=== PATIENT | female | born 2005 | race African-American/Black ===

== ENCOUNTER 2024-03-23 09:34 | Emergency (ER) | payer OTHER, SELFPAY ==
--- NOTE | ~2024-03-23 | CT_ITS ---
EXAMINATION: CTA chest abdomen pelvis DATE: 03/23/2024 10:44 INDICATION: Chest and abdominal pain with exertion TECHNIQUE: Computed tomographic angiography (CTA) of the chest, abdomen, and pelvis was performed wit hout and with 100 mL Omnipaque-350 intravenous contrast. Volume-rendered 3D-reconstructions of the ao rta and large arteries were constructed by the technologist on a separate workstation. Automated expo sure control and iterative reconstruction technique were employed. The dose-length product was 282.17 mGy-cm. COMPARISON: None FINDINGS: Chest: Lungs are clear with no suspicious pulmonary nodules, pneumonia, pulmonary edema, pleural effusion or pneumothorax. No pulmonary embolism. Heart size is normal. No pericardial effusion. Thoracic aorta i s normal in caliber with no dissection. Normal thymus in the anterior mediastinum. No pathologically enlarged thoracic lymphadenopathy. Bones are unremarkable. Abdomen and pelvis: Liver, gallbladder, spleen, pancreas, bilateral adrenal glands and kidneys are normal. Bowels includi ng the appendix are normal. Anteverted uterus and decompressed bladder are unremarkable. No free intr aperitoneal gas or fluid. No pathologically enlarged abdominal or pelvic lymphadenopathy. Abdominal a jose miguel and the major vessels of the aorta are normal with no aneurysm or dissection. 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 Bones are unremarkable. IMPRESSION: 1. No acute thoracic, abdominal or pelvic process. Reviewed, dictated and finalized at location A.
[2024-03-23 09:41] VITALS: BP 108/73; PULSE 70; RESP 16; O2SAT 100
[2024-03-23 09:42] VITALS: BP 108/73; PULSE 68; RESP 16; TEMP 36.6; O2SAT 99
[2024-03-23 09:45] VITALS: BP 116/71; PULSE 72; RESP 16; TEMP 36.6; O2SAT 100
[2024-03-23 10:13] LABS: BEDSIDEPREGUCG Negative (Negative)
[2024-03-23 10:15] LABS: Basophils Percent Auto 0.9 % (0.2-1.2); Eosinophils Absolute Auto 0.1 K/mm3 (0-0.3); Hematocrit 39.8 % (37.0-47.0); Hemoglobin 13.1 g/dL (12.0-15.0); Immature Granulocyte Absolute 0.01 K/mm3 (0.00-0.031); Immature Granulocyte Percent A 0.3 % (0-0.5); Lymphocytes Absolute Auto 1.71 K/mm3 (0.9-3.2); Lymphocytes Percent Auto 51.2 % (18.3-44.2); Mean Corpuscular HGB Conc 32.9 g/dl (32-36); Mean Corpuscular Hemoglobin 28.7 pg (26-34); Mean Corpuscular Volume 87.3 fl (80-100); Mean Platelet Volume 11.1 fl (7.4-10.4); Monocytes Absolute Auto 0.2 K/mm3 (0.1-0.6); Monocytes Percent Auto 5.4 % (2.6-8.5); Neutrophils Absolute Auto 1.3 K/mm3 (1.3-6.7); Neutrophils Percent Auto 39.2 % (45.5-73.1); Platelet Count Result 170 k/mm3 (150-375); Red Blood Count 4.56 M/mm3 (4.2-5.4); White Blood Count 3.3 K/mm3 (4.5-10.0)
[2024-03-23 10:27] LABS: Alanine Aminotransferase 13 U/L (6-35); Albumin Level 4.6 g/dL (3.7-5.6); Alkaline Phosphatase 50 U/L (45-116); Anion Gap 10 mmol/L (4-12); Aspartate Amino Transferase 26 U/L (14-36); Blood Urea Nitrogen 13 mg/dL (8-21); Calcium 9.3 mg/dL (8.9-10.7); Carbon Dioxide 25 mmol/L (22-30); Chloride 104 mmol/L (98-107); Estimated CRCL calculation 82 ml/min; Estimated Glomerular Filt Rate > 60; Glucose 92 mg/dL (65-110); Lipase 87 U/L (23-300); Potassium 3.8 mmol/L (3.4-5.0); Sodium 139 mmol/L (134-143)
[2024-03-23 10:43] LABS: Add Urine Microscopic? YES; Appearance Urine Clear (Clear); Bacteria Urine None Seen /hpf; Bilirubin Urine Negative (Negative); Blood Urine 2+ (Negative); Color Urine Yellow (Yellow); Glucose Urine UA Negative (Negative); Ketones Urine Negative (Negative); Leukocyte Esterase Ur 1+ LEU/UL (Negative); Need Manual Microscopic Reviewed; Nitrate Urine Negative (Negative); Non Pathogenic Casts 0-2; Protein Urine Negative (Negative); Specific Grav Ur 1.029 (1.001-1.035); Squamous Epithelial Cell Urine Occasional /hpf (Few)
[2024-03-23 10:49] VITALS: BP 113/78; PULSE 76; RESP 16; TEMP 36.6; O2SAT 100
[2024-03-23 11:00] VITALS: BP 107/72
[2024-03-23] MEDS: BELLADONNA ALK/PHENOB ELIX 10 ML, MAG HYDROX/ALUMINUM HYD/SIMETH 30 ML, LIDOCAINE HCL 2... PO (11:59)
--- NOTE | 2024-03-23 12:19 | ED.ABDPAIN ---
HPI - Abdominal Pain General Chief Complaint: Abdominal Pain Stated Complaint: abd pain Time Seen by Provider: 03/23/24 09:48 Source: patient Mode of arrival: ambulatory Limitations: no limitations History of Present Illness HPI narrative: This is a 18-year-old female, with no significant past medical history, presents to the emergency department complaining of a burning/sharp pain extending from the base of the neck to the lower abdomen for the past 3 weeks. She states the pain worsens with physical exertion and improves with lying flat. She denies associated shortness of breath, lightheadedness or loss of consciousness. She has no other complaints at this time. Related Data Allergies Allergy/AdvReac Type Severity Reaction Status Date / Time No Known Allergies Allergy Verified 03/23/24 09:44 Review of Systems Review of Systems: All systems reviewed & are unremarkable except as noted in HPI and below PMFSH Past Medical History Medical History (Updated 03/23/24 @ 19:25 by Mega Swenson MD) No significant past medical history Surgical History Surgical History (Updated 03/23/24 @ 19:25 by Mega Swenson MD) No significant past surgical history Social History Social History (Updated 03/23/24 @ 19:25 by Mega Swenson MD) Smoking status: Never smoker Alcohol intake: never Substance use: never Exam Narrative: GENERAL: Well-developed, well-nourished, and in no acute distress. HEAD: Normocephalic, atraumatic. EYES: PERRLA and EOMI. CHEST: Clear to auscultation. No respiratory distress. No wheezes rales or rhonchi HEART: Regular rate and rhythm. No murmur heard. Normal peripheral pulses. ABDOMEN: Soft, nontender, nondistended, normal active bowel sounds. EXTREMITIES: Normal range of motion. No edema. SKIN: Warm, dry, no rash. NEURO: Alert and oriented x3. No focal deficit. Moving all 4 limbs spontaneously PSYCH: Normal mood and affect. Course Course Emergency Course: 12:00 - CBC demonstrates mildly decreased white blood cell count of 3.3 but is otherwise unremarkable. Chemistries unremarkable. UA demonstrates 3-5 rbc's and 6th and white blood cells though no nitrates or PA changes concerning for UTI. test negative. Bedside ultrasound of the aorta somewhat concerning for a flap. CTA chest abdomen pelvis though not concerning for dissection. Will treat with PPI for possible GERD and recommend outpatient follow-up. I discussed the findings and recommendations with the patient. Discussed return and emergency precautions including signs/symptoms of ACS, respiratory distress and acute abdomen. The patient voiced understanding and agreement with the plan. All questions answered to her satisfaction. Vital Signs Vital signs: Vital Signs Pulse Rate 70 03/23/24 09:41 Respiratory Rate 16 03/23/24 09:41 Blood Pressure 108/73 03/23/24 09:41 Pulse Oximetry 100 03/23/24 09:41 Temperature 97.9 F 03/23/24 12:29 Pulse Rate 68 03/23/24 12:29 Respiratory Rate 16 03/23/24 12:29 Blood Pressure 126/70 03/23/24 12:29 Pulse Oximetry 100 03/23/24 12:29 MDM - Abdominal Pain MDM Narrative Medical decision making narrative: Plan: Labs, imaging, pain control, bedside ultrasound, reassess Differential Diagnosis Differential diagnosis: Likely calculus of kidney, diverticulitis, gastroenteritis, pancreatitis, small bowel obstruction and other (This aortic dissection, GERD, UTI, other) Lab Data 03/23/24 10:08 03/23/24 10:08 Labs: Lab Results 03/23/24 03/23/24 Range/Units 10:08 10:11 WBC 3.3 L (4.5-10.0) K/mm3 RBC 4.56 (4.2-5.4) M/mm3 Hgb 13.1 (12.0-15.0) g/dL Hct 39.8 (37.0-47.0) % MCV 87.3 (80-100) fl MCH 28.7 (26-34) pg MCHC 32.9 (32-36) g/dl RDW 14.0 (11.5-14.5) % Plt Count 170 (150-375) k/mm3 MPV 11.1 H (7.4-10.4) fl Immature Gran % (Auto) 0.3 (0-0.5) % Neut % (Auto)
[2024-03-23 12:29] VITALS: BP 126/70; PULSE 68; RESP 16; TEMP 36.6; O2SAT 100
== END 2024-03-23 12:30 | disposition home or self-care (01) ==
PROVIDERS: Emergency Provider Preventive Medicine Aerospace Medicine
DX: K29.70 Gastritis, unspecified, without bleeding (principal)
CPT/HCPCS: 36415; 71275; 74174; 80053; 81001; 81025; 83690; 85025; 87086; 99284; A9270; Q9967

== ENCOUNTER 2024-06-25 21:49 | Emergency (ER) | payer SELFPAY ==
--- NOTE | ~2024-06-25 | XR_ITS ---
CHEST RADIOGRAPH CLINICAL HISTORY: weakness, vomiting . COMPARISON: 11/03/2022 TECHNIQUE: Single portable view of the chest. FINDINGS The cardiomediastinal silhouette is unremarkable. The lungs are clear. Visualized osseous structures and soft tissues are unremarkable. IMPRESSION: No focal infiltrate or effusion. Reviewed, dictated and finalized at location A. 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
[2024-06-25 21:46] VITALS: BP 115/68; PULSE 57; RESP 17; TEMP 36.7; O2SAT 100
[2024-06-25 22:33] LABS: Influenza A QL RT-PCR Negative (Negative); Influenza B QL RT-PCR Negative (Negative); RSV RNA, RT-PCR Negative (Negative); SARS-CoV-2 RNA PCR Negative (Negative)
[2024-06-26 00:27] LABS: Basophils Percent Auto 0.2 % (0.2-1.2); Hematocrit 36.6 % (37.0-47.0); Hemoglobin 12.4 g/dL (12.0-15.0); Immature Granulocyte Absolute 0.03 K/mm3 (0.00-0.031); Immature Granulocyte Percent A 0.4 % (0-0.5); Lymphocytes Absolute Auto 1.46 K/mm3 (0.9-3.2); Mean Corpuscular HGB Conc 33.9 g/dl (32-36); Mean Corpuscular Hemoglobin 27.9 pg (26-34); Mean Corpuscular Volume 82.4 fl (80-100); Monocytes Absolute Auto 0.5 K/mm3 (0.1-0.6); Monocytes Percent Auto 6.7 % (2.6-8.5); Neutrophils Absolute Auto 6.1 K/mm3 (1.3-6.7); Neutrophils Percent Auto 74.7 % (45.5-73.1); Platelet Count Result 167 k/mm3 (150-375); Red Blood Count 4.44 M/mm3 (4.2-5.4); Red Cell Distribution Width 13.5 % (11.5-14.5); White Blood Count 8.1 K/mm3 (4.5-10.0)
[2024-06-26] MEDS: PROCHLORPERAZINE EDISYLATE 10 MG/2 ML VIAL IV PUSH (00:43)
[2024-06-26] MEDS: SODIUM CHLORIDE 0.9% IV 1,000 ML 999 ML IV CONT (00:43)
--- NOTE | 2024-06-26 00:46 | ECG_ITS ---
Test Date: 2024-06-26 00:46:33 Measurements Intervals [place] Rate: 67 P: 151 PA: 156 QRS: 149 QRSD: 77 T: 156 QT: 405 QTc: 428 Interpretive Statements SINUS RHYTHM ARM LEADS REVERSED [INVERTED P AND QRS IN I] ATYPICAL ECG No previous ECG available for comparison Electronically Signed On 06-27-2024 17:21:16 [employer] SUPERVISOR by Jordin Aldridge M.D.
--- NOTE | 2024-06-26 00:57 | ED_ITS ---
HPI - General Adult General Chief complaint: Weakness Stated complaint: weakness, nausea, abd discomfort Time Seen by Provider: 06/25/24 23:13 History of Present Illness HPI narrative: Patient 19-year-old female who presents emergency department with chief complaint of generalized weakness and malaise patient reports he has been having some abdominal discomfort reports that she still uses marijuana a with a she has been told that she has cannabis hyperemesis patient reports that she has also had discomfort in her chest reports that she has also had of feeling as though she just does not feel well like she may be coming down with something. Patient denies syncope reports she was seen at [facility] and was given IV fluids and antiemetics Related Data Allergies Allergy/AdvReac Type Severity Reaction Status Date / Time No Known Allergies Allergy Verified 06/25/24 21:44 Review of Systems 2 Review of Systems: A 10 system review of systems was completed on the patient and is negative except for what is stated in the HPI. Nursing and ancillary documentation was reviewed. [facility] Past Medical History Medical History No significant past medical history Surgical History Surgical History No significant past surgical history Social History Social History Smoking status: Never smoker Alcohol intake: never Substance use: never Exam 2 Narrative: GENERAL: Well-appearing, well-nourished, and in no acute distress. HEAD: Normocephalic, atraumatic. EYES: PERRLA and EOMI. ENT: Nares clear, no rhinorrhea or epistaxis. Mucous membranes moist. NECK: Supple. CHEST: Clear to auscultation. No respiratory distress. HEART: Regular rate and rhythm. No murmur heard. Normal peripheral pulses. ABDOMEN: Soft, nontender, nondistended, normal active bowel sounds. EXTREMITIES: Normal range of motion. No edema. SKIN: Warm, dry, no rash. NEURO: No focal deficits. Alert and oriented x3. PSYCH: Normal mood and affect. Course Vital Signs Vital signs: Vital Signs Temperature 36.7 C 06/25/24 21:46 Pulse Rate 57 L 06/25/24 21:46 Respiratory Rate 17 06/25/24 21:46 Blood Pressure 115/68 06/25/24 21:46 Pulse Oximetry 100 06/25/24 21:46 Oxygen Delivery Room Air 06/25/24 21:46 Temperature 36.7 C 06/25/24 21:46 Pulse Rate 58 L 06/26/24 00:58 Respiratory Rate 17 06/25/24 21:46 Blood Pressure 115/68 06/25/24 21:46 Pulse Oximetry 100 06/25/24 21:46 Oxygen Delivery Room Air 06/25/24 21:46 Medical Decision Making MDM Narrative Medical decision making narrative: Differential diagnosis includes cannabis hyperemesis, all verbal intractable nausea vomiting, dehydration, The laboratory studies were obtained as showed normal CBC normal CMP electrolytes are within normal limits urinalysis showed 2+ ketones but no evidence UTI COVID flu and RSV were negative Patient received IV fluids and antiemetics and is feeling better at this point able tolerate p.o. intake. Vital Signs Vital Signs: Vital Signs Temperature 36.7 C 06/25/24 21:46 Pulse Rate 57 L 06/25/24 21:46 Respiratory Rate 17 06/25/24 21:46 Blood Pressure 115/68 06/25/24 21:46 Pulse Oximetry 100 06/25/24 21:46 Oxygen Delivery Room Air 06/25/24 21:46 Temperature 36.7 C 06/25/24 21:46 Pulse Rate 58 L 06/26/24 00:58 Respiratory Rate 17 06/25/24 21:46 Blood Pressure 115/68 06/25/24 21:46 Pulse Oximetry 100 06/25/24 21:46 Oxygen Delivery Room Air 06/25/24 21:46 Lab Data 06/26/24 00:19 06/26/24 00:19 Labs: Lab Results 06/25/24 06/26/24 06/26/24 Range/Units 21:53 00:19 00:58 WBC 8.1 (4.5-10.0) K/mm3 RBC 4.44 (4.2-5.4) M/mm3 Hgb 12.4 (12.0-15.0) g/dL Hct 36.6 L (37.0-47.0) % MCV 82.4 (80-100) fl MCH 27.9 (26-34) pg MCHC 33.9 (32-36) g/dl RDW 13.5 (11.5-14.5) % Plt Count 167 (150-375) k/mm3 MPV 11.0 H (7.4-10.4) fl Immature Gran % (Auto) 0.4 (0-0.5) % Neut % (Auto) 74.7 H (45.5-73.1) % Lymph % (Auto) 18.0 L (18.3-44.2) % Lane % (Auto) 6.7 (2.6-8.5) % Eos % (Auto) 0.0 (0-4.4) % Baso % (Auto) 0.2 (0.2-1.2) % Lymph # (Auto) 1.46 (0.9-3.2) K/mm3 Lane # (Auto) 0.5 (0.1-0.6) K/mm3 Eos # (Auto) 0.0 (0-0.3) K/mm3 Baso # (Auto) 0.0 (0.0-0.1) K/mm3 Abs Immat Gran (auto) 0.03 (0.00-0.031) K/mm3 Absolute Neuts (auto) 6.1 (1.3-6.7) K/mm3 Absolute Nucleated RBC 0.000 (0.0-0.012) K/mm3 Nucleated RBC % 0.0 (0.0-0.2) % Sodium 135 L (137-145) mmol/L Potassium 3.7 (3.4-5.0) mmol/L Chloride 100 (98-107) mmol/L Carbon Dioxide 27 (22-30) mmol/L Anion Gap 8 (4-12) mmol/L BUN 12 (7-17) mg/dL Creatinine 0.63 L (0.7-1.0) mg/dL Estim Creat Clear Calc 86 ml/min Estimated GFR > 60 (59 - ) Glucose 115 H (65-110) mg/dL Lactic Acid 1.4 (0.7-2.0) mmol/L Calcium 9.4 (8.4-10.2) mg/dL Magnesium 2.0 (1.6-2.3) mg/dL Total Bilirubin 1.2 (0.2-1.3) mg/dL AST 27 (14-36) U/L ALT 14 (6-35) U/L Alkaline Phosphatase 52 (38-126) U/L Troponin I < 0.012 (0.000-0.034) ng/mL Total Protein 8.0 (6.3-8.2) g/dL Albumin 4.5 (3.5-5.1) g/dL Lipase 92 (23-300) U/L Urine Color Dark yellow (Yellow) Urine Appearance Clear (Clear) Urine pH 6.0 (5.0-9.0) Ur Specific [place] 1.038 H (1.001-1.035) Urine Protein 1+ H (Negative) mg/dL Urine Glucose (UA) Negative (Negative) mg/dL Urine Ketones 2+ H (Negative) mg/dL Ur Blood (Man) 3+ H (Negative) Urine Nitrate Negative (Negative) Urine Bilirubin Negative (Negative) Urine Urobilinogen 1.0 (<2.0) mg/dL Add Ur Microanalysis Reviewed Leukocyte Esterase Rfl Negative (Negative) DILSHAD/UL Urine RBC >100 H (0-2) /hpf Urine WBC 0-5 (0-3) /hpf Ur Squamous Epith Cells None seen (Few) /hpf Urine Bacteria None seen /hpf Urine Casts 0-2 POC Urine HCG, Qual Negative (Negative) Influenza A (RT-PCR) Negative (Negative) Influenza B (RT-PCR) Negative (Negative) RSV (RT-PCR) Negative (Negative) SARS-CoV-2 RNA (RT-PCR) Negative (Negative) Discharge Plan Discharge Clinical Impression: Nausea and vomiting Patient Disposition: Home, Self-Care Condition: Stable Instructions: Antibiotic Form, Acute Nausea and Vomiting (ED) Patient Language: Sami Prescriptions: New ondansetron 4 mg tablet,disintegrating 4 mg PO Q8H PRN (Reason: nausea and vomiting) Qty: 10 0RF No Action omeprazole 40 mg capsule,delayed release(DR/EC) 40 mg PO DAILY Qty: 60 0RF Follow-up/Referrals: Triston Overton MD [Physician] - UNKNOWN,DOCTOR [Primary Care Provider] - Time of Disposition: 02:30
[2024-06-26 00:58] VITALS: PULSE 58
[2024-06-26 00:59] LABS: Lactic Acid Reflex 1.4 mmol/L (0.7-2.0)
[2024-06-26 01:01] LABS: Alanine Aminotransferase 14 U/L (6-35); Albumin Level 4.5 g/dL (3.5-5.1); Alkaline Phosphatase 52 U/L (38-126); Anion Gap 8 mmol/L (4-12); Aspartate Amino Transferase 27 U/L (14-36); Bilirubin,Total 1.2 mg/dL (0.2-1.3); Blood Urea Nitrogen 12 mg/dL (7-17); Calcium 9.4 mg/dL (8.4-10.2); Carbon Dioxide 27 mmol/L (22-30); Chloride 100 mmol/L (98-107); Estimated CRCL calculation 86 ml/min; Estimated Glomerular Filt Rate > 60; Glucose 115 mg/dL (65-110); Lipase 92 U/L (23-300); Potassium 3.7 mmol/L (3.4-5.0); Sodium 135 mmol/L (137-145)
[2024-06-26 01:05] LABS: BEDSIDEPREGUCG Negative (Negative)
[2024-06-26 01:06] LABS: Add Urine Microscopic? YES; Appearance Urine Clear (Clear); Bacteria Urine None Seen /hpf; Bilirubin Urine Negative (Negative); Blood Urine 3+ (Negative); Color Urine Dark Yellow (Yellow); Glucose Urine UA Negative (Negative); Ketones Urine 2+ mg/dL (Negative); Leukocyte Esterase Ur Negative LEU/UL (Negative); Need Manual Microscopic Reviewed; Nitrate Urine Negative (Negative); Non Pathogenic Casts 0-2; Protein Urine 1+ mg/dL (Negative); RBC Urine >100 /hpf (0-2); Specific Grav Ur 1.038 (1.001-1.035); Squamous Epithelial Cell Urine None Seen /hpf (Few); WBC Urine 0-5 /hpf (0-3)
[2024-06-26 01:12] LABS: Troponin I < 0.012 ng/mL (0.000-0.034)
[2024-06-26 02:42] VITALS: BP 118/82; PULSE 88; RESP 15; O2SAT 99
[2024-06-26 02:53] VITALS: BP 118/82; PULSE 88; RESP 15; O2SAT 99
--- OUTSIDE RECORDS SUMMARY | 2024-07-02 06:52 | XMS_ITS | Encounter Summary ---
Author Organization [facility] [place] Address [address] [place] [address]. [place] [address] [place] [address] Care Team Providers Care Fryer Line Helper Name Role Phone None, Provider MD Primary Care Provider Unavaila ble Reason for Referral * Imaging (Emergency) - Closed Specialty Diagnoses / Procedures Referred By Jeannine flowers Referred To Contact RADIOLOGY Procedures CT ABD+PEL W IV CON ONLY Charito Moore MD [address] [address] Phone: tel: fax: Referral ID Status Reason Start Date Expiration Date Visits Re quested Visits Authorized [id number] Closed 02/26/2021 03/28/2022 1 1 Reason for Visit * Reason Comments Abdominal Pain Vomiting Encounter Details Date Type Department Care Team (Late st Contact Info) Description 02/26/2021 9:43 AM CDT - 02/26/2021 12:11 PM CDT Emergency [facility] [place] [address] Charito Moore MD [address] [address] Abdominal Pain; Vomiting Discharge Disposition: Home or Self Care (Routine Discharge) Social History Tobacco Use Types Packs/Day Years Used Date Smoking Tobacco: Never Smokeless Tobacco: Never Alcohol Use Standard Drinks/Week Comments Never 0 (1 standard drink = 0.6 oz pur e alcohol) Comments Unknown Sex and Gender Information Value Date Recorded Sex Assigned at Not on file Legal Sex Female 4:21 PM CDT Gender Identity Not on file Sexual Orientation Not on file COVID-19 Exposure Response Date Recorded In the last month, have you been in contact with someone who was confirmed or suspected to have Coronavirus / COVID-19? Yes 02/26/2021 9:30 AM CDT documented as of this encounter Last Filed Vital Signs Vital Sign Reading Time Taken Comments Blood Pressure 104/70 02/26/2021 9:35 AM CDT Pulse 84 02/26/2021 9:35 AM CDT Temperature 36.9 ??C (98.4 ??F) 02/26/2021 9:35 AM CD T Respiratory Rate 18 02/26/2021 9:35 AM CDT Oxygen Saturation 98% 02/26/2021 9:35 AM CDT Inhaled Oxygen Concentration - - Weight 46.7 kg (102 lb 15.3 oz) 02/26/2021 9:35 AM CDT Height 172.7 cm (5' 8 ) 02/26/2021 9:35 AM CDT Body Mass Index 15.65 02/26/2021 9:35 AM CDT Body Mass Index Percentile 0.43% 02/26/2021 9:3 5 AM CDT Growth Chart: [facility] (Girls, 2- 20 Years) documented in this encounter Discharge Instructions * Discharge Instructions* Charito Moore MD - 02/26/2021 11:44 AM CDT Follow a bland diet, avoiding fried or spicy foods. Finish antibiotics as prescribed. Return to theER for new or worsening symptoms. * Attachments The following attachments cannot be sent through Care Everywhere. * Gastritis Discharge Instructions (Austrian) documented in this encounter Medications at Time of Discharge famotidine 20 MG tablet Take 1 tablet (20 mg total) by mouth 2 (two) times daily. 28 tablet 02/26/2021 06/24/2024 documented as of this encounter ED Notes * Huma Calderon RN - 02/26/2021 12:16 PM CDT Provider discussed today's findings with the patient/family. The patient has been given informationregarding their treatment, follow up and concerning symptoms for which they should seek urgent or emergent attention. I have expressed the the importance of seeking attention should there be any new,or worsening symptoms or persistence of their condition. Patient verbalized understanding of the discharge instructions. * Charito Moore MD - 02/26/2021 9:51 AM CDT [place], [place] EMERGENCY DEPARTMENT ENCOUNTER Chief Complaint Chief Complaint Patient presents with ??? Abdominal Pain ??? Vomiting History of Present Illness Provider at Bedside Date/Time Event User Comments 02/26/21943 Provider at Bedside Assessing Patient CHARITO MOORE History provided by: Patient home care specialist used: No Abdominal Pain Associated symptoms: nausea and vomiting Associated symptoms: no chest pain, no chills, no cough, no diarrhea, no dysuria, no fever, no shortness of breath and no sore throat Vomiting Associated symptoms: abdominal pain Associated symptoms: no chills, no cough, no diarrhea, no fever, no headaches and no sore throat Lorraine Pacheco is a 11-aqys-kck-year-old female presents to the ED for evaluation of intermittent epigastric abdominal pain x2-3 months that worsened over the past 2-3 weeks. Reports intermittent episodes of vomiting onset approx 1 week ago, stating that she vomits every other day. Describes pain as asharp/squeezing sensation that is worsened after eating. She has attempted taking Pepto w/o relief.Reports she was evaluated at 2 days ago and was d/x with a UTI. States that she has taken 3 daysof Abx. Denies urinary Sxs. LMP: End january. Medical History ALLERGIES: No Known Allergies MEDICATIONS: Prior to Admission medications Medication Sig Start Date End Date Taking? Authorizing Provider famotidine 20 MG tablet Take 1 tablet (20 mg total) by mouth 2 (two) times daily. 02/26/21 Yes Chariot Moore MD PAST MEDICAL HISTORY: History reviewed. No pertinent past medical history. PAST SURGICAL HISTORY: History reviewed. No pertinent surgical history. FAMILY HISTORY: No family history on file. SOCIAL HISTORY: Social History Tobacco Use ??? Smoking status: Never Smoker ??? Smokeless tobacco: Never Used Substance Use Topics ??? Alcohol use: Never ??? Drug use: Not Currently Types: Marijuana Comment: recently quit Review of Systems Review of Systems Constitutional: Negative for chills and fever. HENT: Negative for sore throat. Eyes: Negative for pain. Respiratory: Negative for cough and shortness of breath. Cardiovascular: Negative for chest pain. Gastrointestinal: Positive for abdominal pain, nausea and vomiting. Negative for diarrhea. Endocrine: Negative for polyuria. Genitourinary: Negative for dysuria. Skin: Negative for rash. Neurological: Negative for dizziness and headaches. Psychiatric/Behavioral: Negative for behavioral problems. See HPI for further details. All systems negative except as marked. Physical Exam Filed Vitals: 02/26/21 0935 BP: 104/70 Pulse: 84 Resp: 18 Temp: 98.4 ??F (36.9 ??C) TempSrc: Oral SpO2: 98% Weight: 46.7 kg (102 lb 15.3 oz) Height: 5' 8 (1.727 m) Physical Exam Vitals and nursing note reviewed. Constitutional: Appearance: She is well-developed. HENT: Head: Normocephalic and atraumatic. Eyes: Conjunctiva/sclera: Conjunctivae normal. Cardiovascular: Rate and Rhythm: Normal rate and regular rhythm. Pulmonary: Effort: Pulmonary effort is normal. Breath sounds: Normal breath sounds. No stridor. Abdominal: Palpations: Abdomen is soft. Tenderness: There is abdominal tenderness (mild) in the epigastric area. Musculoskeletal: General: No deformity. Cervical back: Neck supple. Skin: General: Skin is warm and dry. Neurological: Mental Status: She is alert and oriented to person, place, and time. Diagnostic Studies / Procedures ELECTROCARDIOGRAMS: No results found for this visit on 02/26/21. LABORATORY STUDIES: Results for orders placed or performed during the hospital encounter of 02/26/21 CBC W/DIFF AUTOMATED Result Value Ref Range WBC 3.6 (L) 4.5 - 13.0 x10'3/uL RBC 4.82 4.20 - 5.40 x10'6/uL HGB 13.3 12.0 - 16.0 G/DL HCT 40.9 38.0 - 48.0 % MCV 84.9 81.0 - 99.0 FL MCH 27.6 27.0 - 31.0 PG MCHC 32.5 32.0 - 36.0 G/DL RDW 13.2 11.5 - 14.5 % PLT 191 130 - 400 x10'3/uL MPV 11.0 9.3 - 12.2 FL DIFFERENTIAL TYPE AUTOMATED DIFFERENTIAL NEUTROPHILS 48.1 % LYMPHOCYTES 45.3 % MONOCYTES 4.4 % EOSINOPHILS 1.4 % BASOPHILS 0.8 % IMMATURE GRANS 0.0 % ABS. NEUTROPHILS TOTAL 1.75 (L) 1.80 - 8.00 x10'3/uL ABS. LYMPHOCYTES 1.65 1.20 - 5.20 x10'3/uL ABS. MONOCYTES 0.16 (L) 0.24 - 0.86 x10'3/uL ABS. EOSINOPHILS 0.05 0.04 - 0.36 x10'3/uL ABS. BASOPHILS 0.03 0.01 - 0.08 x10'3/uL ABS. IMMATURE GRANULOCYTES 0.00 0.00 - 0.49 x10'3/uL COMPREHENSIVE METABOLIC PANEL Result Value Ref Range GLUCOSE 98 70 - 99 MG/DL BUN 11 7 - 18 MG/DL CREATININE S/P/B 0.89 0.55 - 1.02 MG/DL SODIUM 139 136 - 145 MMOL/L POTASSIUM 3.6 3.5 - 5.1 MMOL/L CHLORIDE S/P/B 107 100 - 108 MMOL/L CO2 29.3 21 - 32 MMOL/L CALCIUM 9.6 8.5 - 10.1 MG/DL BILIRUBIN TOTAL S/P/B 1.8 (H) 0.2 - 1.1 MG/DL TOTAL PROTEIN S/P/B 7.9 6.4 - 8.2 G/DL ALBUMIN S/P/B 4.4 3.4 - 5.0 G/DL AST 16 15 - 37 U/L ALT 13 (L) 14 - 55 U/L ALKALINE PHOSPHATASE S/P/B 72 50 - 136 U/L ANION GAP 2.7 (L) 5 - 15 MMOL/L BUN CREATININE RATIO 12.4 6 - 26 A/G RATIO 1.3 1.0 - 2.0 RATIO eGFR Non-Afr. Amer. NOT CALCULATED ML/MIN/1.73 M2 eGFR Afr. Amer. NOT CALCULATED ML/MIN/1.73 M2 LIPASE Result Value Ref Range LIPASE 140 73 - 393 UNITS/L URINALYSIS Result Value Ref Range Specimen Type URINE CLEAN CATCH COLOR (U) YELLOW TRANSPARENCY CLEAR Specific [place] (U) 1.030 1.001 - 1.030 U PH 6.5 5.0 - 9.0 LEUKOCYTE ESTERASE 500 (A) NEGATIVE NITRITES NEGATIVE NEGATIVE PROTEIN (U) 70 (H) <30 MG/DL URINE GLUCOSE NORMAL NORMAL MG/DL U KETONES 10 (A) NEGATIVE MG/DL UROBILINOGEN 4.0 (A) NORMAL MG/DL BILIRUBIN (U) NEGATIVE NEGATIVE MG/DL BLOOD NEGATIVE NEGATIVE CULTURE & SENSITIVITY INDICATED? SPECIMEN SETUP FOR CULTURE MUCUS MANY /LPF WBC/HPF 50 (H) <6 /HPF RBC/HPF 8 (H) <6 /HPF SQUAMOUS EPITHELIALS RARE /HPF POCT urine Result Value Ref Range URINE HCG TEST negative NEGATIVE Internal Control performed as Expected? valid VALID IMAGING STUDIES CT ABD+PEL W IV CON ONLY Final Result by User, [id number] (02/26 3426) IMAGING STUDIES: CT ABD+PEL W CON DATE: 02/26/2021 11:04 AM HISTORY: Abdominal pain, nausea, concern for obstruction 15-year-old female with mid abdominal pain for several months. Nausea and vomiting once in the last week. Reported recent diagnosis of urinary tract infection at an Urgent Care Center 2 days ago. Irregular menstrual cycles with LMP at the end of January. COMPARISON: No existing relevant imaging study available. DISCUSSION: CT abdomen and pelvis following intravenous administration 95 ml Isovue-370 contrast. Coronal and sagittal reconstructions. No enteric contrast. Automated exposure control with radiation dose reduction technique used. CHEST: No acute infiltrate or consolidation in the lung bases. CARDIOVASCULAR: Heart size is normal. No pericardial effusion. Normal aorta and aortic branch vessels. Normal venous structures. UPPER ABDOMEN: No acute abnormality of the liver, gallbladder, common bile duct, pancreas, spleen, and adrenal glands. GENITOURINARY: Normal renal enhancement. No renal mass or apparent calcification. No hydronephrosis or hydroureter. Urinary bladder is only mildly distended. No appreciable edema or inflammatory change adjacent to the urinary bladder. Anteverted uterus tilted toward the right. No appreciable adnexal abnormality although somewhat limited evaluation due to crowding of bowel loops in the pelvis. LYMPHATIC: No pathologic adenopathy. GASTROINTESTINAL: Cecum is in the right pelvis. No apparent appendicitis with minimal air in the appendix. No apparent bowel obstruction or focal inflammation. No free fluid in the abdomen or pelvis. MUSCULOSKELETAL: No acute skeletal abnormality. IMPRESSION: No appreciable acute abnormality. Referred By: CHARITO MOORE Interpreted By: Jonah Diego, 02/26/2021 11:25 AM ED Course / Medical Decision Making ED Course as of Feb 26 114 [place] Feb 26, 2021 1142 Patient reevaluated at bedside. She is feeling better and is resting comfortably. Discussed all results with patient and mother. Discussed home care, return precautions and need forfollow up. Patient and mother verbalized understanding and agreement with plan. [BH] ED Course User Index [] Charito Moore MD Pulse Ox Interpretation: Saturation: 98 (%) Oxygen Delivery: RA Interpretation: No acute hypoxia at this time. Data reviewed: All current, pertinent and timely studies (laboratory, imaging, and procedures) wereordered and results reviewed by Charito Moore MD unless otherwise noted. Triage notes and available nursing notes reviewed. Previous medical record reviewed when available. Repeat vital signs reviewed. Medications famotidine (PEPCID) injection 20 mg (20 mg Intravenous Given 02/26/21 1005) iopamidol (ISOVUE-370) 76 % injection 100 mL (100 mLs Intravenous Given 02/26/21 1112) Clinical Impression Abdominal pain (Primary) UTI (urinary tract infection) Gastritis Current Discharge Medication List START taking these medications Details famotidine 20 MG tablet Take 1 tablet (20 mg total) by mouth 2 (two) times daily. Qty: 28 tablet, Refills: 0 Class: Print Disposition: Discharge Follow-Up: Provider Alexei, MD Lawrence, Mariam Calderón, acting as a scribe, am personally taking down the notes in the presence of Charito Moore MD. Take no action on this note until reviewed and authenticated by the physician. Charito Moore MD 02/26/211144 * Kayleigh Oquendo RN - 02/26/2021 9:28 AM CDT Pt presents to ED with mother, complaint of mid abd pain since start of summer and N/V x1 week. No fever Seen at urgent care 2 days ago diagnosed with UTI. States she has been having irregular periods. LMP end of Jan. documented in this encounter Plan of Treatment Not on file documented as of this encounter Procedures Procedure Name Priority Date/Time Associated Diagnosis Comments CT ABD+PEL W CON STAT 02/26/2021 11:1 2 AM CDT URINE BACTERIA CULTURE Routine 10:01 AM CDT HC URINALYSIS AUTO W/O MICRO STAT 02/26/2021 10:00 AM CDT POCT URINE (BACK OFFICE) STAT 02/26/2021 9:59 AM CDT COMPREHENSIVE METABOLIC PANEL STAT 02/26/2021 9:52 AM CDT CBC W/DIFF AUTOMATED STAT 02/26/2021 9:52 AM CDT LIPASE STAT 02/26/2021 9:52 AM CDT documented in this encounter Results * CT ABD+PEL W IV CON ONLY (02/26/2021 11:12 AM CDT) Anatomical Region Laterality Modality Abdomen Computed Tomogra phy 02/26/2021 11:2 5 AM CDT Impressions 02/26/2021 11:34 AM CDT IMPRESSION: No appreciable acute abnormality. Referred By: CHARITO MOORE Interpreted By: Jonah Diego, 02/26/2021 11:25 AM Narrative 02/26/2021 11:34 AM CDT IMAGING STUDIES: ??CT ABD+PEL W CON ? DATE: ??02/26/2021 11:04 AM HISTORY: ??Abdominal pain, nausea, concern for obstruction ? 15-year-old female with mid abdominal pain for several months. Nausea and vomiting once in the last week. Reported recent diagnosis of urinary tract infection at an Urgent Care Center 2 days ago. Irregular menstrual cycles with LMP at the end of January. COMPARISON: ??No existing relevant imaging study available. DISCUSSION: CT abdomen and pelvis following intravenous administration 95 ml Isovue-370 contrast. ??Coronal and sagittal reconstructions. ??No enteric contrast. ??Automated exposure control with radiation dose reduction technique used. CHEST: No acute infiltrate or consolidation in the lung bases. CARDIOVASCULAR: Heart size is normal. No pericardial effusion. Normal aorta and aortic branch vessels. Normal venous structures. UPPER ABDOMEN: No acute abnormality of the liver, gallbladder, common bile duct, pancreas, spleen, and adrenal glands. GENITOURINARY: Normal renal enhancement. No renal mass or apparent calcification. No hydronephrosis or hydroureter. ??Urinary bladder is only mildly distended. No appreciable edema or inflammatory change adjacent to the urinary bladder. Anteverted uterus tilted toward the right. No appreciable adnexal abnormality although somewhat limited evaluation due to crowding of bowel loops in the pelvis. LYMPHATIC: No pathologic adenopathy. GASTROINTESTINAL: Cecum is in the right pelvis. No apparent appendicitis with minimal air in the appendix. No apparent bowel obstruction or focal inflammation. No free fluid in the abdomen or pelvis. MUSCULOSKELETAL: No acute skeletal abnormality. Procedure Note Jonah Diego MD - 02/26/2021 IMAGING STUDIES: CT ABD+PEL W CONDATE: 02/26/2021 11:04 AM HISTORY: Abdominal pain, nausea, concern for obstruction [id number] with mid abdominal pain for several months. Nausea and vomitingonce in the last week. Reported recent diagnosis of urinary tractinfection at an Urgent Care Center 2 days ago. Irregular menstrual cycleswith LMP at the end of January. COMPARISON: No existing relevant imaging study available. DISCUSSION: CT abdomen and pelvis following intravenous administration 95 mlIsovue-370 contrast. Coronal and sagittal reconstructions. No entericcontrast. Automated exposure control with radiation dose reductiontechnique used. CHEST: No acute infiltrate or consolidation in the lung bases. CARDIOVASCULAR: Heart size is normal. No pericardial effusion. Normalaorta and aortic branch vessels. Normal venous structures. UPPER ABDOMEN: No acute abnormality of the liver, gallbladder, common bileduct, pancreas, spleen, and adrenal glands. GENITOURINARY: Normal renal enhancement. No renal mass or apparentcalcification. No hydronephrosis or hydroureter. Urinary bladder is onlymildly distended. No appreciable edema or inflammatory change adjacent tothe urinary bladder. Anteverted uterus tilted toward the right. No appreciable adnexalabnormality although somewhat limited evaluation due to crowding of bowelloops in the pelvis. LYMPHATIC: No pathologic adenopathy. GASTROINTESTINAL: Cecum is in the right pelvis. No apparent appendicitiswith minimal air in the appendix. No apparent bowel obstruction or focalinflammation. No free fluid in the abdomen or pelvis. MUSCULOSKELETAL: No acute skeletal abnormality. IMPRESSION: No appreciable acute abnormality. Referred By: CHARITO MOORE Interpreted By: Jonah Diego, 02/26/2021 11:25 AM Charito Moore MD CT Final Result * CULTURE URINE (02/26/2021 10:01 AM CDT) SPEC DESCRIPTION URINE CLEAN CATCH 02/26/2021 10:40 AM CDT [facility] SPECIAL REQUESTS NO SPECIAL REQUEST 02/26/2021 10:40 AM CDT [facility] CULTURE RESULT NO GROWTH 2 DAYS 02/28/2021 9:37 AM CDT [facility] URINE SPECIMEN OBTAINED BY CLEAN CATCH PROCEDURE / Unknown 02/26/2021 10:01 AM CDT 02/26/2021 10:39 AM CDT Charito Moore MD MICROBIOLOGY - GENERAL ORDERA BLES Final Result [facility] [address] [place] [address], [place] [phone] * (ABNORMAL) URINALYSIS (02/26/2021 10:00 AM CDT) SPECIMEN TYPE URINE CLEAN CATCH 02/26/2021 10:00 AM CDT [facility] COLOR (U) YELLOW 02/26/2021 10:35 AM CDT [facility] TRANSPARENCY CLEAR 02/26/2021 10:35 AM CDT [facility] SPECIFIC GRAVITY (U) 1.030 1.001 - 1.030 02/26/2021 10:35 AM T [facility] U PH 6.5 5.0 - 9.0 02/26/2021 10:35 AM T [facility] LEUKOCYTES (U) 500(A) NEGATIVE 02/26/2021 10:35 AM T [facility] NITRITES NEGATIVE NEGATIVE 02/26/2021 10:35 AM T [facility] PROTEIN (U) 70(H) <30 MG/DL 02/26/2021 10:35 AM T [facility] URINE GLUCOSE NORMAL NORMAL MG/DL 02/26/2021 10:35 AM T [facility] KETONES MG/DL (U) 10(A) NEGATIVE MG/DL 02/26/2021 10:35 AM T [facility] UROBILINOGEN 4.0(A) NORMAL MG/DL 02/26/2021 10:35 AM T [facility] BILIRUBIN (U) NEGATIVE NEGATIVE MG/DL 02/26/2021 10:35 AM T [facility] BLOOD (U) NEGATIVE NEGATIVE 02/26/2021 10:35 AM [facility] CULTURE & SENSITIVITY INDICATED? SPECIMEN SETUP FOR CULTURE 02/26/2021 10:35 AM CDT [facility] MUCUS MANY /LPF 02/26/2021 10:35 AM CDT [facility] WBC/HPF 50(H) <6 /HPF 02/26/2021 10:35 AM CDT [facility] RBC/HPF 8(H) <6 /HPF 02/26/2021 10:35 AM CDT [facility] SQUAMOUS EPITHELIALS RARE /HPF 02/26/2021 10:35 AM CDT [facility] URINE SPECIMEN OBTAINED BY CLEAN CATCH PROCEDURE / Unknown 02/26/2021 10:00 AM CDT us Charito Moore MD URINE ORDERABLES Final Result Performing Organization Address City/[facility]/ZIP Co de Phone Number [facility] [address] [place] [address], [place] [phone] * POCT urine (02/26/2021 9:59 AM CDT) Pathologist [facility] URINE HCG TEST negative NEGATIVE Comment:[id number] 2021-09- 0 Internal Control performed as Expected? valid VALID us Charito Moore MD POINT OF CARE TEST ORDERABLES Final Result * LIPASE (02/26/2021 9:52 AM CDT) Pathologist [facility] LIPASE 140 73 - 393 UNITS/L 02/26/2021 10:42 AM CDT [facility] 02/26/2021 9:52 AM CDT us Charito Moore MD LABORATORY Final Result Performing Organization Address City/[facility]/ZIP Co de Phone Number [facility] [address] [place] [phone], * (ABNORMAL) COMPREHENSIVE METABOLIC PANEL (02/26/2021 9:52 AM CDT) [facility] GLUCOSE 98 70 - 99 MG/DL 02/26/2021 10:42 AM CDT [facility] BUN 11 7 - 18 MG/DL 02/26/2021 10:42 AM CDT [facility] CREATININE S/P/B 0.89 0.55 - 1.02 MG/DL 02/26/2021 10:42 AM CDT [facility] SODIUM S/P/B 139 136 - 145 MMOL/L 02/26/2021 10:42 AM CDT [facility] POTASSIUM S/P/B 3.6 3.5 - 5.1 MMOL/L 02/26/2021 10:42 AM CDT [facility] CHLORIDE S/P/B 107 100 - 108 MMOL/L 02/26/2021 10:42 AM CDT [facility] CO2 29.3 21 - 32 MMOL/L 02/26/2021 10:42 AM CDT [facility] CALCIUM S/P/B 9.6 8.5 - 10.1 MG/DL 02/26/2021 10:42 AM CDT [facility] BILIRUBIN TOTAL S/P/B 1.8(H) 0.2 - 1.1 MG/DL 02/26/2021 10:42 AM CDT [facility] Comment: THIS ASSAY IS NOT RECOMMENDED FOR PATIENTS UNDERGOING TREATMENT WITH ELTROMBOPAG DUE TO THE POTENTIAL FOR FALSELY ELEVATED RESULTS. TOTAL PROTEIN S/P/B 7.9 6.4 - 8.2 G/DL 02/26/2021 10:42 AM CDT [facility] ALBUMIN S/P/B 4.4 3.4 - 5.0 G/DL 02/26/2021 10:42 AM CDT [facility] AST 16 15 - 37 U/L 02/26/2021 10:42 AM CDT [facility] ALT 13(L) 14 - 55 U/L 02/26/2021 10:42 AM CDT [facility] ALKALINE PHOSPHATASE S/P/B 72 50 - 136 U/L 02/26/2021 10:42 AM CDT [facility] ANION GAP 2.7(L) 5 - 15 MMOL/L 02/26/2021 10:42 AM CDT [facility] BUN CREATININE RATIO 12.4 6 - 26 02/26/2021 10:42 AM CDT [facility] A/G RATIO 1.3 1.0 - 2.0 RATIO 02/26/2021 10:42 AM CDT [facility] EGFR NON-AFR. AMER. NOT CALCULATED ML/MIN/1. 73 M2 02/26/2021 10:42 AM CDT [facility] EGFR AFR. AMER. NOT CALCULATED ML/MIN/1. 73 M2 02/26/2021 10:42 AM CDT [facility] Comment: NOTE: eGFR is not calculated for patients <18 years of age. This is an estimated GFR (CKD EPI) and should not be used for calculating drug doses. 02/26/2021 9:52 AM CDT us Charito Moore MD LABORATORY Final Result [facility] [address] [place] [address], [place] [phone] * (ABNORMAL) CBC W/DIFF AUTOMATED (02/26/2021 9:52 AM CDT) WBC 3.6(L) 4.5 - 13.0 x10'3/uL 02/26/2021 10:20 AM CDT [facility] RBC 4.82 4.20 - 5.40 x10'6/uL 02/26/2021 10:20 AM CDT [facility] HGB 13.3 12.0 - 16.0 G/DL 02/26/2021 10:20 AM CDT [facility] HCT 40.9 38.0 - 48.0 % 02/26/2021 10:20 AM CDT [facility] MCV 84.9 81.0 - 99.0 FL 02/26/2021 10:20 AM CDT [facility] MCH 27.6 27.0 - 31.0 PG 02/26/2021 10:20 AM CDT [facility] MCHC 32.5 32.0 - 36.0 G/DL 02/26/2021 10:20 AM CDT [facility] RDW 13.2 11.5 - 14.5 % 02/26/2021 10:20 AM CDT [facility] PLT 191 130 - 400 x10'3/uL 02/26/2021 10:20 AM CDT [facility] MPV 11.0 9.3 - 12.2 FL 02/26/2021 10:20 AM CDT [facility] DIFFERENTIAL TYPE AUTOMATED DIFFERENTIAL 02/26/2021 10:20 AM CDT [facility] NEUTROPHILS % 48.1 % 02/26/2021 10:20 AM CDT [facility] LYMPHOCYTES % 45.3 % 02/26/2021 10:20 AM CDT [facility] MONOCYTES % 4.4 % 02/26/2021 10:20 AM CDT [facility] EOSINOPHILS 1.4 % 02/26/2021 10:20 AM CDT [facility] BASOPHILS 0.8 % 02/26/2021 10:20 AM CDT [facility] IMMATURE GRANS % 0.0 % 02/27/20 10:20 AM CDT [facility] ABS. NEUTROPHILS TOTAL 1.75(L) 1.80 - 8.00 x10'3/uL 02/26/2021 10:20 AM CDT [facility] ABS. LYMPHOCYTES 1.65 1.20 - 5.20 x10'3/uL 02/26/2021 10:20 AM CDT [facility] ABS. MONOCYTES 0.16(L) 0.24 - 0.86 x10'3/uL 02/26/2021 10:20 AM CDT [facility] ABS. EOSINOPHILS 0.05 0.04 - 0.36 x10'3/uL 02/26/2021 10:20 AM CDT [facility] ABS. BASOPHILS 0.03 0.01 - 0.08 x10'3/uL 02/26/2021 10:20 AM CDT [facility] ABS. IMMATURE GRANULOCYTES 0.00 0.00 - 0.49 x10'3/uL 02/26/2021 10:20 AM CDT [facility] 02/26/2021 9:52 AM CDT us Charito Moore MD LABORATORY Final Result [facility] [address] [place] [address], [place] [phone] documented in this encounter Visit Diagnoses Diagnosis Abdominal pain- Primary Abdominal pain, unspecified site UTI (urinary tract infection) Urinary tract infection, site not specified Gastritis Unspecified gastritis and gastroduodenitis without mention of hemorrhage documented in this encounter Administered Medications Inactive Administered Medications - up to 3 most recent administrations Medication Order MAR Action Action Date Dose Rate Site famotidine (PEPCID) injection 20 mg 20 mg, Intravenous, Once, 1 dose, On [place] 02/26/21 at 1000, IV Push over 2 minutes Given 02/26/2021 10:05 AM CDT 20 mg iopamidol (ISOVUE-370) 76 % injection 100 mL 100 mL, Intravenous, IMG once as needed, Contrast, 1 dose, Starting on [place] 02/26/21 at 1104, Until [place] 02/26/21 at 1112 Given 02/26/2021 11:12 AM CDT 100 mLs documented in this encounter Active and Recently Administered Medications Times are shown in CDT. 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
--- OUTSIDE RECORDS SUMMARY | 2024-07-02 06:52 | XMS_ITS | Encounter Summary ---
Author Organization [facility] Address [address] [place] [address]. [place], [place] [id number] [place] [id number] Care Team Providers Care Engineering Tech Name Role Phone None, Provider Primary Care Provider Unavaila ble Encounter Details Date Type Department Care Team (Latest Contact Info) Description 07/01/2022 Travel Social History Tobacco Use Types Packs/Day Years Used Date Smoking Tobacco: Never Smokeless Tobacco: Never Alcohol Use Standard Drinks/Week Comments Never 0 (1 standard drink = 0.6 oz pur e alcohol) Comments No Sex and Gender Information Value Date Recorded Sex Assigned at Not on file Legal Sex Female 4:21 PM CDT Gender Identity Not on file Sexual Orientation Not on file COVID-19 Exposure Response Date Recorded In the last 10 days, have yo u been in contact with someone who was confirmed or suspected to have Coronavirus/COVID-19? 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
--- OUTSIDE RECORDS SUMMARY | 2024-07-02 06:52 | XMS_ITS | Encounter Summary ---
Author Organization [facility] Address [address] [place] [address]. [place], [place] [id number] [place] [id number] Care Team Providers Care Ships Equipment Engineer Name Role Phone None, Provider MD Primary Care Provider Unavaila ble Reason for Visit * Reason Comments Abdominal Pain Encounter Details Date Type Department Care Team (Late st Contact Info) Description 06/24/2024 11:14 AM OPTICAL INSTRUMENTS SUPERVISOR - 06/24/2024 4:45 PM OPTICAL INSTRUMENTS SUPERVISOR Emergency [facility] [place] [address] Lashell Murray, [facility] [address] [address] Abdominal Pain Discharge Disposition: Home or Self Care (Routine [...] on file Sexual Orientation Not on file documented as of this encounter Last Filed Vital Signs Vital Sign Reading Time Taken Comments Blood Pressure 95/56 06/24/2024 1:50 PM OPTICAL INSTRUMENTS SUPERVISOR Pulse 57 06/24/2024 1:50 PM OPTICAL INSTRUMENTS SUPERVISOR Temperature 36.7 ??C (98 ??F) 06/24/2024 11:18 AM OPTICAL INSTRUMENTS SUPERVISOR Respiratory Rate 18 06/24/2024 2:35 PM OPTICAL INSTRUMENTS SUPERVISOR Oxygen Saturation 98% 06/24/2024 1:50 PM OPTICAL INSTRUMENTS SUPERVISOR Inhaled Oxygen Concentration - - Weight 45.2 kg (99 lb 10.4 oz) 06/24/2024 11:18 AM OPTICAL INSTRUMENTS SUPERVISOR Height 172.7 cm (5' 8 ) 06/24/2024 11:18 AM OPTICAL INSTRUMENTS SUPERVISOR Body Mass Index 15.15 06/24/2024 11:18 AM OPTICAL INSTRUMENTS SUPERVISOR documented in this encounter Discharge Instructions * Discharge Instructions* ERICK Bajwa - 06/24/2024 2:15 PM OPTICAL INSTRUMENTS SUPERVISOR - Zofran can be used as needed for nausea. - For diet, start with bland foods (banana, rice, apple sauce, toast) with advancement as tolerated. Stay away from fatty or spicy foods, dairy, or caffeine. - It is very important to stay hydrated. Drink at least 8- 8oz glasses of water daily. Better to drink frequent, small sips than large gulps. - Follow up with PCP/your doctor this week for re-evaluation - Return to the emergency room for any new or worsening symptoms especially for fever, uncontrollable vomiting, blood in vomit or other new emergent concerns. CAL INSTRUMENTS SUPERVISOR * Attachments The following attachments cannot be sent through Care Everywhere. * Cannabis hyperemesis syndrome ([place] Citizen) documented in this encounter Medications at Time of Discharge ondansetron (ZOFRAN-ODT) 4 MG disintegrating tablet Take 1 tablet (4 mg total) by mouth every 8 (eight) hours as needed. 20 tablet 06/24/2024 famotidine (PEPCID) 20 MG tablet Take 1 tablet (20 mg total) by mouth 2 (two) times daily for 7 days. 14 tablet 06/24/2024 5 documented as of this encounter ED Notes * Fermin Elena RN - 06/24/2024 4:11 PM CST Pt states she does not want phenergan because it gives her muscle cramps, provider then ordered methocarbamol and pt declined that as well. Pt states she is waiting on her uber to arrive and wants toleave. CAL INSTRUMENTS SUPERVISOR * Monserrat Hernandez RN - 06/24/2024 3:34 PM CST Pt was D/C @1435, yet has been laying in ED19 since. Mobile Architect asked pt if there was anything else she needed at approx 1515. Pt on the phone with her mother who is rapidly firing questions about why this pt is to be admitted. Pt verbalizing that she is not currently in pain, however pt is worried she will go home and still be in pain. Mobile Architect stressed this is why it is so important to followup with your Primary Provider, however mother did not like that comment. Mobile Architect left the room to inform the ED Provider of this issue. Lashell SUAREZ came out of the room after discussing POC with pt and mother. CHRISTIAN EDUCATION DIRECTOR reporting thatthe pt had thrown up all over the floor and that there were 3 empty emesis bags around the pt when she entered the room. Pt currently resting on stretcher in ED19 with warm blankets and eyes closed. Adequate chest rise and fall noted at this time. Both smoking pipe coater and Primary RN notified. CAL INSTRUMENTS SUPERVISOR CAL INSTRUMENTS SUPERVISOR CAL INSTRUMENTS SUPERVISOR * Fermin Elena RN - 06/24/2024 12:30 PM CST Pt asking for water and sticking fingers to back of throat trying to make herself vomit CAL INSTRUMENTS SUPERVISOR * ERICK Bajwa - 06/24/2024 11:22 AM CST Chief Complaint Chief Complaint Patient presents with Abdominal Pain History of Present Illness 18-year-old female who is otherwise healthy presents for evaluation of nausea, vomiting, abdominal pain. Reports this started last night. Denies diarrhea or sick contacts. Denies urinary symptoms. Denies chance for , is only sexually active with women. Medical History ALLERGIES: Review of patient's allergies indicates: No Known Allergies MEDICATIONS: Prior to Admission medications Medication Sig Start Date End Date Taking? Authorizing Provider famotidine (PEPCID) 20 MG tablet Take 1 tablet (20 mg total) by mouth 2 (two) times daily for 7 days. 06/24/24 07/01/24 Yes ERICK Bajwa ondansetron (ZOFRAN-ODT) 4 MG disintegrating tablet Take 1 tablet (4 mg total) by mouth every 8 (eight) hours as needed. 06/24/24 Yes ERICK Bajwa PAST MEDICAL HISTORY: History reviewed. No pertinent past medical history. PAST SURGICAL HISTORY: History reviewed. No pertinent surgical history. FAMILY HISTORY: No family history on file. SOCIAL HISTORY: Social History Tobacco Use Smoking status: Never Smokeless tobacco: Never Vaping Use Vaping status: Never Used Substance Use Topics Alcohol use: Never Drug use: Yes Types: Marijuana Comment: recently quit Review of Systems Review of Systems Gastrointestinal: Positive for abdominal pain, nausea and vomiting. Physical Exam Filed Vitals: 06/24/24 1200 06/24/24 1340 06/24/24 1350 06/24/24 1435 BP: 104/81 102/55 95/56 Pulse: (!) 57 Resp: 18 18 Temp: TempSrc: SpO2: 99% 99% 98% Weight: Height: Physical Exam Vitals and nursing note reviewed. Constitutional: Appearance: She is well-developed. She is ill-appearing (At times retching into emesis bag and ontofloor during a repeat evaluation). HENT: Head: Normocephalic. Eyes: Pupils: Pupils are equal, round, and reactive to light. Cardiovascular: Rate and Rhythm: Normal rate and regular rhythm. Pulmonary: Effort: Pulmonary effort is normal. Breath sounds: Normal breath sounds. Abdominal: Palpations: Abdomen is soft. Tenderness: There is no abdominal tenderness. There is no guarding. Musculoskeletal: General: Normal range of motion. Skin: General: Skin is warm and dry. Neurological: Mental Status: She is alert and oriented to person, place, and time. Psychiatric: Mood and Affect: Mood normal. Diagnostic Studies / Procedures ELECTROCARDIOGRAMS: No results found for this visit on 06/24/24. LABORATORY STUDIES: Results for orders placed or performed during the hospital encounter of 06/24/24 CBC W/DIFF AUTOMATED Result Value Ref Range WBC 5.50 4.5 - 13.0 x10'3/uL RBC 4.52 4.20 - 5.40 x10'6/uL HGB 12.5 12.0 - 16.0 G/DL HCT 38.6 38.0 - 48.0 % MCV 85.4 81.0 - 99.0 FL MCH 27.7 27.0 - 31.0 PG MCHC 32.4 32.0 - 36.0 G/DL RDW 13.8 11.5 - 14.5 % PLT 152 130 - 400 x10'3/uL MPV 11.1 9.3 - 12.2 FL DIFFERENTIAL TYPE AUTOMATED DIFFERENTIAL NEUTROPHILS % 68.9 % LYMPHOCYTES % 22.7 % MONOCYTES % 6.2 % EOSINOPHILS 1.6 % BASOPHILS 0.4 % IMMATURE GRANS % 0.2 % ABS. NEUTROPHILS 3.79 1.80 - 8.00 x10'3/uL ABS. LYMPHOCYTES 1.25 1.20 - 5.20 x10'3/uL ABS. MONOCYTES 0.34 0.24 - 0.86 x10'3/uL ABS. EOSINOPHILS 0.09 0.04 - 0.36 x10'3/uL ABS. BASOPHILS 0.02 0.01 - 0.08 x10'3/uL ABS. IMMATURE GRANULOCYTES 0.01 0.00 - 0.49 x10'3/uL LIPASE Result Value Ref Range LIPASE 27 13 - 75 UNITS/L COMPREHENSIVE METABOLIC PANEL Result Value Ref Range GLUCOSE 113 (H) 70 - 99 MG/DL BUN 10 7 - 18 MG/DL CREATININE S/P/B 0.96 0.55 - 1.02 MG/DL SODIUM S/P/B 141 136 - 145 MMOL/L POTASSIUM S/P/B 4.3 3.5 - 5.1 MMOL/L CHLORIDE S/P/B 113 97 - 115 MMOL/L CO2 22.8 21 - 32 MMOL/L CALCIUM S/P/B 8.8 8.5 - 10.1 MG/DL BILIRUBIN TOTAL S/P/B 1.0 0.2 - 1.1 MG/DL TOTAL PROTEIN S/P/B 6.4 6.4 - 8.2 G/DL ALBUMIN S/P/B 3.4 3.4 - 5.0 G/DL AST 27 15 - 37 U/L ALT 12 (L) 14 - 55 U/L ALKALINE PHOSPHATASE S/P/B 43 (L) 50 - 136 U/L ANION GAP 5.2 2 - 10 MMOL/L BUN CREATININE RATIO 10.4 6 - 26 A/G RATIO 1.1 1.0 - 2.0 RATIO GFR ESTIMATE 87 (L) >90 ML/MIN/1.73 M2 URINALYSIS Result Value Ref Range SPECIMEN TYPE URINE CLEAN CATCH COLOR (U) YELLOW TRANSPARENCY CLEAR SPECIFIC GRAVITY (U) 1.031 (H) 1.001 - 1.030 U PH 8.0 5.0 - 9.0 LEUKOCYTES (U) NEGATIVE NEGATIVE NITRITES NEGATIVE NEGATIVE PROTEIN RANDOM (U) 70 (H) <30 MG/DL GLUCOSE (U) 30 (A) NORMAL MG/DL KETONES MG/DL (U) 10 (A) NEGATIVE MG/DL UROBILINOGEN 2.0 (A) NORMAL MG/DL BILIRUBIN (U) NEGATIVE NEGATIVE MG/DL BLOOD (U) 1+ (A) NEGATIVE MUCUS FEW /LPF WBC/HPF 4 <6 /HPF RBC/HPF 80 (H) <6 /HPF BACTERIA (U) RARE (A) NONE /HPF IMAGING STUDIES: No orders to display MEDICATIONS: Medications promethazine (PHENERGAN) suppository 12.5 mg (12.5 mg Rectal Not Given 06/24/24 1551) methocarbamol (ROBAXIN) injection 1 g (1 g Intramuscular Not Given 06/24/24 1611) prochlorperazine (COMPAZINE) injection 10 mg (10 mg Intravenous Given 06/24/24 1129) diphenhydrAMINE (BENADRYL) injection 25 mg (25 mg Intravenous Given 06/24/24 1126) capsaicin (ABSORBINE ARTHRITIS) 0.025 % cream ( Topical Given 06/24/24 1213) ondansetron (ZOFRAN-ODT) disintegrating tablet 4 mg (4 mg Oral Given 06/24/24 1306) haloperidol lactate (HALDOL) injection 5 mg (5 mg Intravenous Given 06/24/24 1306) famotidine (PF) (PEPCID) injection 20 mg (20 mg Intravenous Given 06/24/24 1306) Discharge Medication List as of 06/24/2024 2:18 PM ED Course / Medical Decision Making Medical Decision Making Patient presents with nausea, vomiting. Chart review, patient admitted to [facility] June 2022 for cannabis hyperemesis syndrome, Feels similar to previous hospitalization for cannabis hyperemesis syndrome. abdominal exam without peritoneal signs. Currently euvolemic without evidence of dehydration-she is not tachycardic or hypotensive. No evidence of surgical abdomen or other acute medical emergency including bowel obstruction, viscus perforation, vascular catastrophe, atypical appendicitis, acute cholecystitis at this time. Presentation not consistent with other acute, emergent causes of vomiting at this time. No indication for abdominal imaging. She received multiple antiemetics, and after discussion with patient'smother on the phone we discussed Phenergan suppository, she reports this causes muscle spasms, offered IM Robaxin at this time as she had requested that her IV be removed. She declined further antiemetics and was nontoxic upon exit exam. discussed gentle rehydration and return to emergency room if develop blood in stool, localizing abdominal pain or tenderness. Amount and/or Complexity of Data Reviewed Labs: ordered. ED Course as of 06/24/241726 Sun Jun 24, 2024 1537 Patient ready for discharge at 2 PM, she has not had any episodes of emesis within the last 90minutes and appeared comfortable on reevaluation. Patient requested that her IV be removed. Recently informed by nurse that patient refused to leave. Her mother is on the phone expressing concern fordehydration if discharged home. Promethazine suppository ordered [GS] ED Course User Index [GS] EIRCK Bajwa Clinical Impression Cannabis hyperemesis syndrome concurrent with and due to cannabis abuse ([facility]) (Primary) Disposition: Discharge NOTE: I dictated portions of this note using [employer] speech recognition software. Occasional wrong word or sound-alike substitutions may have occurred due to the inherent limitations of voice recognition software. ERICK BAJWA 06/24/2024 ERICK Bajwa 06/24/24 1727 Cosigned by Jasmyn Abbott MD at 06/25/2024 7:49 PM OPTICAL INSTRUMENTS SUPERVISOR CAL INSTRUMENTS SUPERVISOR CAL INSTRUMENTS SUPERVISOR * Fermin Elena RN - 06/24/2024 11:15 AM CST Pt states n/v abd pain started last night after smoking weed, has had similar symptoms in the past CAL INSTRUMENTS SUPERVISOR documented in this encounter Plan of Treatment Not on file documented as of this encounter Procedures Procedure Name Priority Date/Time Associated Diagnosis Comments HC URINALYSIS AUTO W/O MICRO STAT 06/24/2024 1:06 PM OPTICAL INSTRUMENTS SUPERVISOR COMPREHENSIVE METABOLIC PANEL STAT 06/24/2024 11:18 AM OPTICAL INSTRUMENTS SUPERVISOR CBC W/DIFF AUTOMATED STAT 06/24/2024 11:18 AM OPTICAL INSTRUMENTS SUPERVISOR LIPASE STAT 06/24/2024 11:18 AM OPTICAL INSTRUMENTS SUPERVISOR documented in this encounter Results * (ABNORMAL) URINALYSIS (06/24/2024 1:06 PM OPTICAL INSTRUMENTS SUPERVISOR) SPECIMEN TYPE URINE CLEAN CATCH 06/24/2024 1:06 PM OPTICAL INSTRUMENTS SUPERVISOR [facility] COLOR (U) YELLOW 06/24/2024 2:27 PM OPTICAL INSTRUMENTS SUPERVISOR [facility] TRANSPARENCY CLEAR 06/24/2024 2:27 PM OPTICAL INSTRUMENTS SUPERVISOR [facility] SPECIFIC GRAVITY (U) 1.031(H) 1.001 - 1.030 06/24/2024 2:27 PM OPTICAL INSTRUMENTS SUPERVISOR [facility] U PH 8.0 5.0 - 9.0 06/24/2024 2:27 PM OPTICAL INSTRUMENTS SUPERVISOR [facility] LEUKOCYTES (U) NEGATIVE NEGATIVE 06/24/2024 2:27 PM OPTICAL INSTRUMENTS SUPERVISOR [facility] NITRITES NEGATIVE NEGATIVE 06/24/2024 2:27 PM [facility] PROTEIN RANDOM (U) 70(H) <30 MG/DL 06/24/2024 2:27 PM [facility] GLUCOSE (U) 30(A) NORMAL MG/DL 06/24/2024 2:27 PM OPTICAL INSTRUMENTS SUPERVISOR [facility] KETONES MG/DL (U) 10(A) NEGATIVE MG/DL 06/24/2024 2:27 PM OPTICAL INSTRUMENTS SUPERVISOR [facility] Comment: Successful Call: PURNIMAEdd called 06/24/2024 02:28 PM to EMERGENCY ROOM ([id number]/FERMIN ELENA) by [id number]. Read Back: Yes UROBILINOGEN 2.0(A) NORMAL MG/DL 06/24/2024 2:27 PM OPTICAL INSTRUMENTS SUPERVISOR [facility] BILIRUBIN (U) NEGATIVE NEGATIVE MG/DL 06/24/2024 2:27 PM OPTICAL INSTRUMENTS SUPERVISOR [facility] BLOOD (U) 1+(A) NEGATIVE 06/24/2024 2:27 PM OPTICAL INSTRUMENTS SUPERVISOR [facility] MUCUS FEW /LPF 06/24/2024 2:27 PM OPTICAL INSTRUMENTS SUPERVISOR [facility] WBC/HPF 4 <6 /HPF 06/24/2024 2:27 PM OPTICAL INSTRUMENTS SUPERVISOR [facility] RBC/HPF 80(H) <6 /HPF 06/24/2024 2:27 PM OPTICAL INSTRUMENTS SUPERVISOR [facility] BACTERIA (U) RARE(A) NONE /HPF 06/24/2024 2:27 PM OPTICAL INSTRUMENTS SUPERVISOR [facility] URINE SPECIMEN OBTAINED BY CLEAN CATCH PROCEDURE / Unknown 06/24/2024 1:06 PM OPTICAL INSTRUMENTS SUPERVISOR us Lashell Murray CHRISTIAN EDUCATION DIRECTOR URINE ORDERABLES Final Resu lt [facility] [address] [place] [address], [place] [phone] * (ABNORMAL) COMPREHENSIVE METABOLIC PANEL (06/24/2024 11:18 AM OPTICAL INSTRUMENTS SUPERVISOR) GLUCOSE 113(H) 70 - 99 MG/DL 06/24/2024 12:05 PM [facility] BUN 10 7 - 18 MG/DL 06/24/2024 12:05 PM [facility] CREATININE S/P/B 0.96 0.55 - 1.02 MG/DL 06/24/2024 12:05 PM [facility] SODIUM S/P/B 141 136 - 145 MMOL/L 06/24/2024 12:05 PM [facility] POTASSIUM S/P/B 4.3 3.5 - 5.1 MMOL/L 06/24/2024 12:05 PM [facility] Comment:SLIGHT HEMOLYSIS, RE SULT MAY BE AFFECTED. CHLORIDE S/P/B 113 97 - 115 MMOL/L 06/24/2024 12:05 PM [facility] CO2 22.8 21 - 32 MMOL/L 06/24/2024 12:05 PM [facility] CALCIUM S/P/B 8.8 8.5 - 10.1 MG/DL 06/24/2024 12:05 PM [facility] BILIRUBIN TOTAL S/P/B 1.0 0.2 - 1.1 MG/DL 06/24/2024 12:05 PM [facility] Comment: THIS ASSAY IS NOT RECOMMENDED FOR PATIENTS UNDERGOING TREATMENT WITH ELTROMBOPAG DUE TO THE POTENTIAL FOR FALSELY ELEVATED RESULTS. TOTAL PROTEIN S/P/B 6.4 6.4 - 8.2 G/DL 06/24/2024 12:05 PM [facility] ALBUMIN S/P/B 3.4 3.4 - 5.0 G/DL 06/24/2024 12:05 PM [facility] AST 27 15 - 37 U/L 06/24/2024 12:05 PM [facility] Comment:SLIGHT HEMOLYSIS, RE SULT MAY BE AFFECTED. ALT 12(L) 14 - 55 U/L 06/24/2024 12:05 PM [facility] ALKALINE PHOSPHATASE S/P/B 43(L) 50 - 136 U/L 06/24/2024 12:05 PM [facility] ANION GAP 5.2 2 - 10 MMOL/L 06/24/2024 12:05 PM [facility] BUN CREATININE RATIO 10.4 6 - 26 06/24/2024 12:05 PM [facility] A/G RATIO 1.1 1.0 - 2.0 RATIO 06/24/2024 12:05 PM [facility] GFR ESTIMATE 87(L) >90 ML/MIN/1.7 3 M2 06/24/2024 12:05 PM [facility] Comment: NOTE: eGFR is not calculated for patients <18 years of age or gender unknown. This is an estimated GFR calculation using the new CKD EPI creatinine equation without race and so does not require a correction factor for race. This estimated GFR should not be used for calculating drug doses. 06/24/2024 11:1 8 AM OPTICAL INSTRUMENTS SUPERVISOR Lashell Murray [facility] Final Resul t Performing Organization Address City/[facility]/ZIP Co de Phone Number [facility] [address] [place] [address], [place] [phone] * LIPASE (06/24/2024 11:18 AM OPTICAL INSTRUMENTS SUPERVISOR) LIPASE 27 13 - 75 UNITS/L 06/24/2024 12:05 PM [facility] 06/24/2024 11:1 8 AM OPTICAL INSTRUMENTS SUPERVISOR Lashell Murray [facility] Final Resul t [facility] [address] [place] [address], [place] [phone] * CBC W/DIFF AUTOMATED (06/24/2024 11:18 AM OPTICAL INSTRUMENTS SUPERVISOR) [facility] Signature WBC 5.50 4.5 - 13.0 x10'3/uL 06/24/2024 11:40 AM [facility] RBC 4.52 4.20 - 5.40 x10'6/uL 06/24/2024 11:40 AM [facility] HGB 12.5 12.0 - 16.0 G/DL 06/24/2024 11:40 AM [facility] HCT 38.6 38.0 - 48.0 % 06/24/2024 11:40 AM [facility] MCV 85.4 81.0 - 99.0 FL 06/24/2024 11:40 AM [facility] MCH 27.7 27.0 - 31.0 PG 06/24/2024 11:40 AM [facility] MCHC 32.4 32.0 - 36.0 G/DL 06/24/2024 11:40 AM [facility] RDW 13.8 11.5 - 14.5 % 06/24/2024 11:40 AM [facility] PLT 152 130 - 400 x10'3/uL 06/24/2024 11:40 AM [facility] MPV 11.1 9.3 - 12.2 FL 06/24/2024 11:40 AM [facility] DIFFERENTIAL TYPE AUTOMATED DIFFERENTIAL 06/24/2024 11:40 AM [facility] NEUTROPHILS % 68.9 % 06/24/2024 11:40 AM [facility] LYMPHOCYTES % 22.7 % 06/24/2024 11:40 AM OPTICAL INSTRUMENTS SUPERVISOR [facility] MONOCYTES % 6.2 % 06/24/2024 11:40 AM OPTICAL INSTRUMENTS SUPERVISOR [facility] EOSINOPHILS 1.6 % 06/24/2024 11:40 AM [facility] BASOPHILS 0.4 % 06/24/2024 11:40 AM [facility] IMMATURE GRANS % 0.2 % 06/24/19 11:40 AM OPTICAL INSTRUMENTS SUPERVISOR [facility] ABS. NEUTROPHILS 3.79 1.80 - 8.00 x10'3/uL 06/24/2024 11:40 AM OPTICAL INSTRUMENTS SUPERVISOR [facility] ABS. LYMPHOCYTES 1.25 1.20 - 5.20 x10'3/uL 06/24/2024 11:40 AM [facility] ABS. MONOCYTES 0.34 0.24 - 0.86 x10'3/uL 06/24/2024 11:40 AM OPTICAL INSTRUMENTS SUPERVISOR [facility] ABS. EOSINOPHILS 0.09 0.04 - 0.36 x10'3/uL 06/24/2024 11:40 AM OPTICAL INSTRUMENTS SUPERVISOR [facility] ABS. BASOPHILS 0.02 0.01 - 0.08 x10'3/uL 06/24/2024 11:40 AM [facility] ABS. IMMATURE GRANULOCYTES 0.01 0.00 - 0.49 x10'3/uL 06/24/2024 11:40 AM [facility] 06/24/2024 11:1 8 AM OPTICAL INSTRUMENTS SUPERVISOR Lashell ALVAREZP LABORAT[facility] Final Resul t [facility] [address] [place] [address], documented in this encounter Visit Diagnoses Diagnosis Cannabis hyperemesis syndrome concurrent with and due to cannabis abuse ([facility])- Primary documented in this encounter Administered Medications Inactive Administered Medications - up to 3 most recent administrations Medication Order MAR Action Action Date Dose Rate Site capsaicin (ABSORBINE ARTHRITIS) 0.025 % cream Topical, Once, 1 dose, On 06/24/24 at 1130, 1 inch paste into abdomen Given 06/24/2024 12:13 PM OPTICAL INSTRUMENTS SUPERVISOR diphenhydrAMINE (BENADRYL) injection 25 mg 25 mg, Intravenous, Once, 1 dose, On 06/24/24 at 1130, For IV administration, give no faster than 25 mg/min. Given 06/24/2024 11:26 AM OPTICAL INSTRUMENTS SUPERVISOR 25 mg famotidine (PF) (PEPCID) injection 20 mg 20 mg, Intravenous, Once, 1 dose, On 06/24/24 at 1300, IV Push over 2 minutes Given 06/24/2024 1:06 PM OPTICAL INSTRUMENTS SUPERVISOR 20 mg haloperidol lactate (HALDOL) injection 5 mg 5 mg, Intravenous, Once, 1 dose, On 06/24/24 at 1300, IF giving IV, do not give faster than 5 mg/min IV; observe for hypotension. Given 06/24/2024 1:06 PM OPTICAL INSTRUMENTS SUPERVISOR 5 mg ondansetron (ZOFRAN-ODT) disintegrating tablet 4 mg 4 mg, Oral, Once, 1 dose, On 06/24/24 at 1245 Given 06/24/2024 1:06 PM OPTICAL INSTRUMENTS SUPERVISOR 4 mg prochlorperazine (COMPAZINE) injection 10 mg 10 mg, Intravenous, Once, 1 dose, On 06/24/24 at 1130, If giving IV, administer diluted or undiluted by slow IV push at a maximum rate of 5 mg/minute. To reduce the risk of hypotension the patient must remain lying down and be observed for 30 minutes after receiving the medication. IM administration: Outer gluteal muscle Given 06/24/2024 11:29 AM OPTICAL INSTRUMENTS SUPERVISOR 10 mg documented in this encounter Active and Recently Administered Medications Times are shown in OPTICAL INSTRUMENTS SUPERVISOR. Scheduled Medication Order 06/22/2024 06/23/2024 06/24/2024 capsaicin (ABSORBINE ARTHRITIS) 0.025 % cream (COMPLETED) Topical, Once, 1 dose, On 06/24/24 at 1130, 1 inch paste into abdomen 1213 (Given - Provid er: Fermin Elena RN) diphenhydrAMINE (BENADRYL) injection 25 mg (COMPLETED) 25 mg, Intravenous, Once, 1 dose, On 06/24/24 at 1130, For IV administration, give no faster than 25 mg/min. 1126 (Given - Provid er: Monserrat Hernandez RN) famotidine (PF) (PEPCID) injection 20 mg (COMPLETED) 20 mg, Intravenous, Once, 1 dose, On 06/24/24 at 1300, IV Push over 2 minutes 1306 (Given - Provid er: Fermin Elena RN) haloperidol lactate (HALDOL) injection 5 mg (COMPLETED) 5 mg, Intravenous, Once, 1 dose, On 06/24/24 at 1300, IF giving IV, do not give faster than 5 mg/min IV; observe for hypotension. 1306 (Given - Provid er: Fermin Elena RN) methocarbamol (ROBAXIN) injection 1 g 1 g, Intramuscular, Once, 1 dose, On 06/24/24 at 1600, IM Administration: Give in the gluteal muscle. 1611 (Not Given - Pr ovider: Fermin Elena RN - Reason: Patient/family declined) ondansetron (ZOFRAN-ODT) disintegrating tablet 4 mg (COMPLETED) 4 mg, Oral, Once, 1 dose, On 06/24/24 at 1245 1306 (Given - Provid er: Fermin Elena RN) prochlorperazine (COMPAZINE) injection 10 mg (COMPLETED) 10 mg, Intravenous, Once, 1 dose, On 06/24/24 at 1130, If giving IV, administer diluted or undiluted by slow IV push at a maximum rate of 5 mg/minute. To reduce the risk of hypotension the patient must remain lying down and be observed for 30 minutes after receiving the medication. IM administration: Outer gluteal muscle 1129 (Given - Provid er: Monserrat Hernandez RN) promethazine (PHENERGAN) suppository 12.5 mg 12.5 mg, Rectal, Once, 1 dose, On 06/24/24 at 1545 1551 (Not Given - Pr ovider: Fermin Elena RN - Reason: Patient/family declined) documented in this encounter Care Teams Ships Equipment Engineer Relationship Specialty Start Date End Date None, Provider, PCP - General 02/26/21 documented as of this encounter
--- OUTSIDE RECORDS SUMMARY | 2024-07-02 06:52 | XMS_ITS | Clinical Summary ---
Author Organization [facility] Address [address] [place] [address]. [place] [address] [place] [address] Care Team Providers Care Application Development Project Manager Name Role Phone None, Provider MD Primary Care Provider Unavaila ble Allergies Active Allergy Reactions Criticality Noted Date Comments Prochlorperazine Dystonia High 07/05/2022 Also droperidol Medications ondansetron (ZOFRAN-ODT) 4 MG disintegrating tablet Take 1 tablet (4 mg total) by mouth every 8 (eight) hours as needed. 20 tablet 06/24/19 25 Active famotidine 20 MG tablet Take 1 tablet (20 mg total) by mouth 2 (two) times daily. 28 tablet 02/27/20 21 025 Discontinued ondansetron (ZOFRAN-ODT) 4 MG disintegrating tablet Take 1 tablet (4 mg total) by mouth every 8 (eight) hours as needed for Nausea. 20 tablet 07/01/19 23 025 Discontinued famotidine (PEPCID) 20 MG tablet Take 1 tablet (20 mg total) by mouth 2 (two) times daily for 7 days. 14 tablet 06/24/19 25 025 Encounters Date Type Department Care Team Description 2024 12:27 PM NUCLEAR FUELS RESEARCH ENGINEER - 2024 2:03 PM [facility] Emergency [facility] [place] [address] Komal George PA Vomiting Discharge Disposition: Home or Self Care (Routine Discharge) 2024 Travel 06/24/2024 11:14 AM NUCLEAR FUELS RESEARCH ENGINEER - 06/24/2024 4:45 PM NUCLEAR FUELS RESEARCH ENGINEER Emergency [facility] [place] [address] Lashell Murray, SUPERVISOR RESIDENTIAL Abdominal Pain Discharge Disposition: Home or Self Care (Routine Discharge) 06/24/2024 Travel from Last 3 Months Social History Tobacco Use Types Packs/Day Years Used Date Smoking Tobacco: Never Smokeless Tobacco: Never Alcohol Use Standard Drinks/Week Comments Never 0 (1 standard drink = 0.6 oz pur e alcohol) Comments No Sex and Gender Information Value Date Recorded Sex Assigned at Not on file Legal Sex Female 4:21 PM CDT Gender Identity Not on file Sexual Orientation Not on file Last Filed Vital Signs Vital Sign Reading Time Taken Comments Blood Pressure 126/89 2024 11:21 AM NUCLEAR FUELS RESEARCH ENGINEER Pulse 56 2024 11:21 AM NUCLEAR FUELS RESEARCH ENGINEER Temperature 36.7 ??C (98.1 ??F) 2024 11:[address] Respiratory Rate 16 2024 11:21 AM NUCLEAR FUELS RESEARCH ENGINEER Oxygen Saturation 100% 2024 11:21 AM NUCLEAR FUELS RESEARCH ENGINEER Inhaled Oxygen Concentration - - Weight 45.4 kg (100 lb) 2024 11:21 AM NUCLEAR FUELS RESEARCH ENGINEER Height 172.7 cm (5' 8 ) 2024 11:21 AM NUCLEAR FUELS RESEARCH ENGINEER Body Mass Index 15.2 2024 11:21 AM NUCLEAR FUELS RESEARCH ENGINEER Plan of Treatment Health Maintenance Due Date Last Done Comments Annual Physical 2007 Hepatitis C 2022 COVID-19 Vaccine ( season) 2024 05/25/2021, 12/11/2020 Influenza Adult (#1) 2024 04/06/2022, 05/25/2021, 03/22/2018, Additional history exists DTaP, Tdap and Td Vaccines (6 - Td or Tdap) 12/10/2025 12/11/2015, 01/14/2009, 12/22/2005, Additional history exists Hepatitis B Vaccines Completed 05/10/2005, 01/12/2005, 2004, Additional history exists Pneumococcal Vaccine: Pediatrics (0 to 5 Years) and At-Risk Patients (6 to 64 Years) Aged Out 12/22/2005, 05/10/2005, 01/12/2005, Additional history exists No longer eligible based on patient's age to complete this topic HPV Vaccines Completed 03/22/2018, 12/11/2015 Meningococcal Vaccine Completed 03/13/2021, 016 RSV Immunizations Under 20 Months Aged Out No longer eligible based on patient's age to complete this topic Procedures Procedure Name Priority Date/Time Associated Diagnosis Comments CT ABD+PEL W CON STAT 2024 1:21 PM NUCLEAR FUELS RESEARCH ENGINEER LIPASE STAT 2024 12:43 PM NUCLEAR FUELS RESEARCH ENGINEER COMPREHENSIVE METABOLIC PANEL STAT 2024 12:43 PM NUCLEAR FUELS RESEARCH ENGINEER CBC W/DIFF AUTOMATED STAT 2024 12:43 PM NUCLEAR FUELS RESEARCH ENGINEER POCT URINE (BACK OFFICE) STAT 2024 12:41 PM NUCLEAR FUELS RESEARCH ENGINEER DRUG SCREEN RAPID STAT 2024 12: 41 PM NUCLEAR FUELS RESEARCH ENGINEER HC URINALYSIS AUTO W/O MICRO STAT 2024 12:41 PM NUCLEAR FUELS RESEARCH ENGINEER HC URINALYSIS AUTO W/O MICRO STAT 06/24/2024 1:06 PM NUCLEAR FUELS RESEARCH ENGINEER COMPREHENSIVE METABOLIC PANEL STAT 06/24/2024 11:18 AM NUCLEAR FUELS RESEARCH ENGINEER LIPASE STAT 06/24/2024 11:18 AM NUCLEAR FUELS RESEARCH ENGINEER CBC W/DIFF AUTOMATED STAT 06/24/2024 11:18 AM NUCLEAR FUELS RESEARCH ENGINEER from Last 3 Months Results * CT ABD+PEL W IV CON ONLY (2024 1:21 PM NUCLEAR FUELS RESEARCH ENGINEER) Anatomical Region Laterality Modality Abdomen Computed Tomogra phy 2024 1:24 PM NUCLEAR FUELS RESEARCH ENGINEER Addenda Addendum by Jamarcus Taylor MD on 2024 1:42 PM NUCLEAR FUELS RESEARCH ENGINEER [facility] [address] [place], [place] [address] IMPRESSION: 1. ??No acute abnormality identified. 2. ??Right ovarian cyst, 4.7 cm. Referred By: ?? Interpreted By: Jamarcus Taylor MD, 2024 1:40 PM Impressions 2024 1:28 PM NUCLEAR FUELS RESEARCH ENGINEER IMPRESSION: Referred By: ?? Interpreted By: Jamarcus Taylor MD, 2024 1:24 PM Narrative 2024 1:28 PM NUCLEAR FUELS RESEARCH ENGINEER [address] [address] EXAMINATION: CT ABD+PEL W CON CLINICAL HISTORY: Abdominal pain, nausea, vomiting COMPARISON: 02/26/2021 DATE/TIME: 2024 1:13 PM TECHNIQUE: Multiplanar CT images of the abdomen and pelvis were obtained. ??IV contrast: uneventful intravenous administration of 100 mL Isovue 370. ??Oral contrast: None. ?? A dose lowering technique was used for this procedure, which may include, but is not limited to, dose reduction technique, automated exposure control, the use of iterative reconstruction, and ALARA (As Low As Reasonably Achievable) / Image Gently techniques. FINDINGS: Liver is negative. ??Gallbladder is negative. ??Bile ducts are negative. ??Pancreas is negative. ??Spleen is negative. Adrenal glands are negative. ??Kidneys are negative. ??Bladder is decompressed and poorly evaluated. ??There is a right ovarian cyst measuring 4.7 x 4.5 x 4.5 cm. ??Would consider follow-up ultrasound. ??Uterus and left ovary are unremarkable. ??Abdominal aorta is normal caliber. No free air or fluid. ??Suboptimal evaluation of the GI tract without oral contrast, given a complete lack of intra-abdominal fat. ??No evidence of acute GI tract inflammatory change identified. ??Stomach is decompressed but appears grossly unremarkable. ??Normal appendix. No acute osseous abnormality. ??Minimal levoconvex lateral curvature of the lumbar spine. Procedure Note Jamarcus Taylor MD - [address] [address] EXAMINATION: CT ABD+PEL W CON CLINICAL HISTORY: Abdominal pain, nausea, vomiting COMPARISON: 02/26/2021 DATE/TIME: 2024 1:13 PM TECHNIQUE: Multiplanar CT images of the abdomen and pelvis were obtained.IV contrast: uneventful intravenous administration of 100 mL Isovue 370.Oral contrast: None. A dose lowering technique was used for this procedure, which may include,but is not limited to, dose reduction technique, automated exposurecontrol, the use of iterative reconstruction, and ALARA (As Low AsReasonably Achievable) / Image Gently techniques. FINDINGS: Liver is negative. Gallbladder is negative. Bile ducts arenegative. Pancreas is negative. Spleen is negative. Adrenal glands are negative. Kidneys are negative. Bladder isdecompressed and poorly evaluated. There is a right ovarian cystmeasuring 4.7 x 4.5 x 4.5 cm. Would consider follow-up ultrasound.Uterus and left ovary are unremarkable. Abdominal aorta is normalcaliber. No free air or fluid. Suboptimal evaluation of the GI tract without oralcontrast, given a complete lack of intra-abdominal fat. No evidence ofacute GI tract inflammatory change identified. Stomach is decompressedbut appears grossly unremarkable. Normal appendix. No acute osseous abnormality. Minimal levoconvex lateral curvature of thelumbar spine. IMPRESSION: Referred By: Interpreted By: Jamarcus Taylor MD, 2024 1:[address] Edited Result - Final * (ABNORMAL) COMPREHENSIVE METABOLIC PANEL (2024 12:43 PM NUCLEAR FUELS RESEARCH ENGINEER) Only the most recent of2 resultswithin the time period is included. GLUCOSE 107(H) 70 - 99 MG/DL 2024 1:19 PM [facility] BUN 10 7 - 18 MG/DL 2024 1:19 PM [facility] CREATININE S/P/B 0.65 0.55 - 1.02 MG/DL 2024 1:19 PM [facility] SODIUM S/P/B 136 136 - 145 MMOL/L 2024 1:19 PM [facility] POTASSIUM S/P/B 3.3(L) 3.5 - 5.1 MMOL/L 2024 1:19 PM [facility] CHLORIDE S/P/B 105 97 - 115 MMOL/L 2024 1:19 PM [facility] CO2 24.8 21 - 32 MMOL/L 2024 1:19 PM [facility] CALCIUM S/P/B 8.9 8.5 - 10.1 MG/DL 2024 1:19 PM [facility] BILIRUBIN TOTAL S/P/B 1.2 0.2 - 1.2 MG/DL 2024 1:19 PM [facility] Comment: THIS ASSAY IS NOT RECOMMENDED FOR PATIENTS UNDERGOING TREATMENT WITH ELTROMBOPAG DUE TO THE POTENTIAL FOR FALSELY ELEVATED RESULTS. TOTAL PROTEIN S/P/B 7.1 6.4 - 8.2 G/DL 2024 1:19 PM [facility] ALBUMIN S/P/B 3.8 3.4 - 5.0 G/DL 2024 1:19 PM [facility] AST 17 15 - 37 U/L 2024 1:19 PM [facility] ALT 15 14 - 55 U/L 2024 1:19 PM NUCLEAR FUELS RESEARCH ENGINEER [facility] ALKALINE PHOSPHATASE S/P/B 46(L) 50 - 136 U/L 2024 1:19 PM NUCLEAR FUELS RESEARCH ENGINEER [facility] ANION GAP 6.2 2 - 10 MMOL/L 2024 1:19 PM NUCLEAR FUELS RESEARCH ENGINEER [facility] BUN CREATININE RATIO 15.5 6 - 26 2024 1:19 PM [facility] A/G RATIO 1.2 1.0 - 2.0 RATIO 2024 1:19 PM [facility] GFR ESTIMATE >90 >90 ML/MIN/1.7 3 M2 2024 1:19 PM [facility] Comment: NOTE: eGFR is not calculated for patients <18 years of age or gender unknown. This is an estimated GFR calculation using the new CKD EPI creatinine equation without race and so does not require a correction factor for race. This estimated GFR should not be used for calculating drug doses. 2024 12:4 3 PM NUCLEAR FUELS RESEARCH ENGINEER [facility] Final Result [facility] [address] [place] [address], [place] [phone] * (ABNORMAL) CBC W/DIFF AUTOMATED (2024 12:43 PM NUCLEAR FUELS RESEARCH ENGINEER) Only the most recent of2 resultswithin the time period is included. WBC 7.51 4.5 - 13.0 x10'3/uL 2024 1:02 PM NUCLEAR FUELS RESEARCH ENGINEER [facility] RBC 4.26 4.20 - 5.40 x10'6/uL 2024 1:02 PM NUCLEAR FUELS RESEARCH ENGINEER [facility] HGB 12.0 12.0 - 16.0 G/DL 2024 1:02 PM [facility] HCT 35.0(L) 38.0 - 48.0 % 2024 1:02 PM [facility] MCV 82.2 81.0 - 99.0 FL 2024 1:02 PM [facility] MCH 28.2 27.0 - 31.0 PG 2024 1:02 PM [facility] MCHC 34.3 32.0 - 36.0 G/DL 2024 1:02 PM [facility] RDW 13.5 11.5 - 14.5 % 2024 1:02 PM [facility] PLT 176 130 - 400 x10'3/uL 2024 1:02 PM [facility] MPV 10.7 9.3 - 12.2 FL 2024 1:02 PM [facility] DIFFERENTIAL TYPE AUTOMATED DIFFERENTIAL 2024 1:02 PM [facility] NEUTROPHILS % 70.1 % 2024 1:02 PM [facility] LYMPHOCYTES % 21.3 % 2024 1:02 PM [facility] MONOCYTES % 8.0 % 2024 1:02 PM [facility] EOSINOPHILS 0.1 % 2024 1:02 PM [facility] BASOPHILS 0.1 % 2024 1:02 PM [facility] IMMATURE GRANS % 0.4 % 06/26/19 1:02 PM [facility] ABS. NEUTROPHILS 5.26 1.80 - 8.00 x10'3/uL 2024 1:02 PM NUCLEAR FUELS RESEARCH ENGINEER [facility] ABS. LYMPHOCYTES 1.60 1.20 - 5.20 x10'3/uL 2024 1:02 PM NUCLEAR FUELS RESEARCH ENGINEER [facility] ABS. MONOCYTES 0.60 0.24 - 0.86 x10'3/uL 2024 1:02 PM NUCLEAR FUELS RESEARCH ENGINEER [facility] ABS. EOSINOPHILS 0.01(L) 0.04 - 0.36 x10'3/uL 2024 1:02 PM NUCLEAR FUELS RESEARCH ENGINEER [facility] ABS. BASOPHILS 0.01 0.01 - 0.08 x10'3/uL 2024 1:02 PM NUCLEAR FUELS RESEARCH ENGINEER [facility] ABS. IMMATURE GRANULOCYTES 0.03 0.00 - 0.49 x10'3/uL 2024 1:02 PM NUCLEAR FUELS RESEARCH ENGINEER [facility] 2024 12:4 3 PM NUCLEAR FUELS RESEARCH ENGINEER [facility] Final Result Performing Organization Address City/[facility]/ZIP Co de Phone Number [facility] [address] [place] [address], [place] [phone] * LIPASE (2024 12:43 PM NUCLEAR FUELS RESEARCH ENGINEER) Only the most recent of2 resultswithin the time period is included. LIPASE 39 13 - 75 UNITS/L 2024 1:19 PM NUCLEAR FUELS RESEARCH ENGINEER [facility] 2024 12:4 3 PM NUCLEAR FUELS RESEARCH ENGINEER [place] [facility] Final Result [facility] [address] [place] [address], [place] [phone] * POCT urine (2024 12:41 PM NUCLEAR FUELS RESEARCH ENGINEER) URINE HCG TEST NEGATIVE Internal Control: VALID [facility] POINT OF CARE TEST ORDERABLES Final Result * (ABNORMAL) DRUG SCREEN RAPID (2024 12:41 PM NUCLEAR FUELS RESEARCH ENGINEER) AMPHETAMINE (U) NEGATIVE NEGATIVE 1:15 PM NUCLEAR FUELS RESEARCH ENGINEER [facility] BARBITURATES SCREEN (U) NEGATIVE NEGATIVE 2024 1:15 PM NUCLEAR FUELS RESEARCH ENGINEER [facility] BENZODIAZEPINES SCREEN (U) NEGATIVE NEGATIVE 2024 1:15 PM NUCLEAR FUELS RESEARCH ENGINEER [facility] CANNABINOIDS SCREEN (U) POSITIVE(A) NEGATIVE 2024 1:15 PM NUCLEAR FUELS RESEARCH ENGINEER [facility] COCAINE METABOLITES (U) NEGATIVE NEGATIVE 2024 1:15 PM NUCLEAR FUELS RESEARCH ENGINEER [facility] METHADONE (U) NEGATIVE NEGATIVE 2024 1:15 PM NUCLEAR FUELS RESEARCH ENGINEER [facility] OPIATE SCREEN (U) NEGATIVE NEGATIVE 025 1:15 PM [facility] PHENCYCLIDINE PCP (U) NEGATIVE NEGATIVE 2024 1:15 PM [facility] Comment: NOTE: RESULTS OF THIS DRUG SCREEN SHOULD BE USED FOR MEDICAL PURPOSES ONLY AND NOT FOR LEGAL OR EMPLOYMENT PURPOSES. POSITIVE RESULTS ARE NOT CONFIRMED. MEDICATIONS CONTAINING EPHEDRINE MAY CAUSE FALSE POSITIVE AMPHETAMINE CALL [phone], LAB, TO REQUEST CONFIRMATION TESTING. IF CREATININE IS <40 mg/dL. ??RECOLLECTION IS SUGGESTED. AMPHETAMINE- ?500 NG/ML BARBITURATE- ?200 NG/ML BENZODIAZEPINES- ??200 NG/ML THC- ? 50 NG/ML COCAINE- ?150 NG/ML METHADONE- ?300 NG/ML OPIATE- ? 300 MG/ML PCP- ? 25 NG/ML CREATININE (U) 241.0(H) 28 - 217 MG/DL 2024 1:15 PM [facility] URINE SPECIMEN / Unknown 2024 12:41 PM NUCLEAR FUELS RESEARCH ENGINEER [facility] URINE ORDERABLES Final Result [facility] [address] [place] [address], * (ABNORMAL) URINALYSIS (2024 12:41 PM NUCLEAR FUELS RESEARCH ENGINEER) Only the most recent of2 resultswithin the time period is included. SPECIMEN TYPE URINE CLEAN CATCH 2024 12:43 PM [facility] COLOR (U) YELLOW 2024 12:53 PM [facility] TRANSPARENCY CLEAR 2024 12:53 PM [facility] SPECIFIC GRAVITY (U) 1.030 1.001 - 1.030 2024 12:53 PM [facility] U PH 7.0 5.0 - 9.0 2024 12:53 PM [facility] LEUKOCYTES (U) 25(A) NEGATIVE 2024 12:53 PM [facility] NITRITES NEGATIVE NEGATIVE 2024 12:53 PM [facility] PROTEIN RANDOM (U) 20 <30 MG/DL 2024 12:53 PM [facility] GLUCOSE (U) NORMAL NORMAL MG/DL 2024 12:53 PM NUCLEAR FUELS RESEARCH ENGINEER [facility] KETONES MG/DL (U) 60(A) NEGATIVE MG/DL 2024 12:53 PM NUCLEAR FUELS RESEARCH ENGINEER [facility] UROBILINOGEN 4.0(A) NORMAL MG/DL 2024 12:53 PM NUCLEAR FUELS RESEARCH ENGINEER [facility] BILIRUBIN (U) NEGATIVE NEGATIVE MG/DL 2024 12:53 PM NUCLEAR FUELS RESEARCH ENGINEER [facility] BLOOD (U) 3+(A) NEGATIVE 2024 12:53 PM NUCLEAR FUELS RESEARCH ENGINEER [facility] MUCUS RARE /LPF 2024 12:53 PM NUCLEAR FUELS RESEARCH ENGINEER [facility] WBC/HPF 4 <6 /HPF 2024 12:53 PM NUCLEAR FUELS RESEARCH ENGINEER [facility] RBC/HPF >100(H) <6 /HPF 2024 12:53 PM NUCLEAR FUELS RESEARCH ENGINEER [facility] SQUAMOUS EPITHELIALS RARE /HPF 2024 12:53 PM NUCLEAR FUELS RESEARCH ENGINEER [facility] URINE SPECIMEN OBTAINED BY CLEAN CATCH PROCEDURE / Unknown 2024 12:41 PM NUCLEAR FUELS RESEARCH ENGINEER us K[facility] URINE ORDERABLES Final Result [facility] [address] [place] [address], from Last 3 Months Insurance Care Teams Application Development Project Manager Relationship Specialty Start Date End Date None, Provider, PCP - General 02/26/21
--- OUTSIDE RECORDS SUMMARY | 2024-07-02 06:52 | XMS_ITS | Encounter Summary ---
Author Organization [facility] Address [address] [place] [address]. [place], [place] [id number] [place] [id number] Care Team Providers Care Plant Engineering Supervisor Name Role Phone None, Provider Primary Care Provider Unavaila ble Encounter Details Date Type Department Care Team (Latest Contact Info) Description 02/26/2021 Travel Social History Tobacco Use Types Packs/Day [...] AM CDT documented as of this encounter Plan of Treatment Not on file documented as of this encounter Visit Diagnoses Not on filedocumented in this encounter Care Teams Plant Engineering Supervisor Relationship Specialty Start Date End Date None, Provider, PCP - General 02/26/21 documented as of this encounter
--- OUTSIDE RECORDS SUMMARY | 2024-07-02 06:52 | XMS_ITS | Continuity of Care Document ---
Author Organization [facility] Address [address] [place] [address] Care Team Providers Care Drug Abuse Resistance Education Officer Name Role Phone MD Mega Swenson Emergency Provider [phone] UNKNOWN, DOCTOR Primary Care Provider Unavail able Care Teams Patient Care Team Team Status: Active Member Role Status Dates DOCTOR UNKNOWN Primary Care Provider Active Visit Care Team Team Status: Inactive Member Role Status Dates Mega Swenson MD Emergency Provider Active DOCTOR UNKNOWN Primary Care Provider Active Chief Complaint and Reason for Visit Chief Complaint abd pain Allergies, Adverse Reactions, Alerts No known allergies Social History Smoking Status Unknown if ever smoked Additional Data Assigned Sex Female Problems Active Problems Medical Problem Onset Date Status Gastritis Active Abdominal pain Active Medications Medication Status Dose Units Route Directions Qty Days Start Eleuterio e End Date Instructions Omeprazole Active 40 MG PO DAILY 60 Octobe r 2023 12:00am Procedures Procedure Date Performed Status Urine Culture March 23, 2024 active Relevant Diagnostic Tests and/or Laboratory Data Laboratory Results Test Date/Time Result Interpretation Reference Range Result Comment Performing Site White Blood Count March 23, 2024 10:08am 3.3 K/mm3 Below low normal 4.5-10.0 [facility] [id number] [address] [place] [address] 60328 Red Blood Count March 23, 2024 10:08am 4.56 M/mm3 4.2-5.4 [facility] [id number] [address] [place] [address] 95155 Hemoglobin March 23, 2024 10:08am 13.1 g/dL 12.0-15.0 [facility] [id number] [address] [place] [address] 07238 Hematocrit March 23, 2024 10:08am 39.8 % 37.0-47.0 [facility] [id number] [address] [place] [address] 85172 Mean Corpuscular Volume March 23, 2024 10:08am 87.3 fL 80-100 [facility] [id number] [address] [place] [address] 03973 Mean Corpuscular Hemoglobin March 23, 2024 10:08am 28.7 pg 26-34 [facility] [id number] [address] [place] [address] 71253 Mean Corpuscular Hemoglobin Concent March 23, 2024 10:08am 32.9 g/dL 32-36 [facility] [id number] [address] [place] [address] 85178 Red Cell Distribution Width March 23, 2024 10:08am 14.0 % 11.5-14.5 [facility] [id number] [address] [place] [address] 24780 Platelet Count March 23, 2024 10:08am 170 k/mm3 150-375 [facility] [id number] [address] [place] [address] 37417 Mean Platelet Volume March 23, 2024 10:08am 11.1 fL Above high normal 7.4-10.4 [facility] [id number] [address] [place] [address] 42555 Nucleated Red Blood Cells % March 23, 2024 10:08am 0.0 % 0.0-0.2 [facility] [id number] [address] [place] [address] 19809 Immature Granulocyte % (Auto) March 23, 2024 10:08am 0.3 % 0-0.5 [facility] [id number] [address] [place] [address] 68624 Neutrophils (%) (Auto) March 23, 2024 10:08am 39.2 % Below low normal 45.5-73.1 [facility] [id number] [address] [place] [address] 77238 Lymphocytes (%) (Auto) March 23, 2024 10:08am 51.2 % Above high normal 18.3-44.2 [facility] [id number] [address] [place] [address] 00083 Monocytes (%) (Auto) March 23, 2024 10:08am 5.4 % 2.6-8.5 [facility] [id number] [address] [place] [address] 91371 Eosinophils (%) (Auto) March 23, 2024 10:08am 3.0 % 0-4.4 [facility] [id number] [address] [place], [place] [address] Basophils (%) (Auto) March 23, 2024 10:08am 0.9 % 0.2-1.2 [facility] [id number] [address] [place], [place] [address] Nucleated RBC Absolute Count (auto) March 23, 2024 10:08am 0.000 K/mm3 0.0-0.012 [facility] [id number] [address] [place] [address] Absolute Immature Granulocyte (auto March 23, 2024 10:08am 0.01 K/mm3 0.00-0.031 [facility] [id number] [address] [place] [address] Absolute Neutrophils (auto) March 23, 2024 10:08am 1.3 K/mm3 1.3-6.7 [facility] [id number] [address] [place] [address] Lymphocytes # (Auto) March 23, 2024 10:08am 1.71 K/mm3 0.9-3.2 [facility] [id number] [address] [place], [place] [address] Monocytes # (Auto) March 23, 2024 10:08am 0.2 K/mm3 0.1-0.6 [facility] [id number] [address] [place], [place] [address] Eosinophils # (Auto) March 23, 2024 10:08am 0.1 K/mm3 0-0.3 [facility] [id number] [address] [place], [place] [address] Basophils # (Auto) March 23, 2024 10:08am 0.0 K/mm3 0.0-0.1 [facility] [id number] [address] [place] [address] 88197 Urine Color March 23, 2024 10:08am Yellow Yellow [facility] [id number] [address] [place], [place] [address] Urine Appearance March 23, 2024 10:08am Clear Clear [facility] [id number] [address] [place], [place] [address] Urine pH March 23, 2024 10:08am 6.0 5.0-9.0 [facility] [id number] [address] [place], [place] [address] Urine Specific [place] March 23, 2024 10:08am 1.029 1.001-1.03 5 [facility] [id number] [address] [address] Urine Protein March 23, 2024 10:08am Negative mg/dL Negative [facility] [id number] [address] [address] Urine Glucose (UA) March 23, 2024 10:08am Negative mg/dL Negative [facility] [id number] [address] [address] Urine Ketones March 23, 2024 10:08am Negative mg/dL Negative [facility] [id number] [address] [address] Urine Blood (Manual) March 23, 2024 10:08am 2+ Above high normal Negative [facility] [id number] [address] [address] Urine Nitrate March 23, 2024 10:08am Negative Negative [facility] [id number] [address] [address] Urine Bilirubin March 23, 2024 10:08am Negative Negative [facility] [id number] [facility] [address] [address] Urine Urobilinogen March 23, 2024 10:08am 1.0 mg/dL <2.0 [facility] [id number] [facility] [address] [address] Urine Leukocyte Esterase (Reflex) March 23, 2024 10:08am 1+ DILSHAD/UL Above high normal Negative [facility] [id number] [facility] [address] [address] Urine RBC March 23, 2024 10:08am 3-5 [HPF] Above high normal 0-2 [facility] [id number] [facility] [address] [address] Urine WBC March 23, 2024 10:08am 6-10 [HPF] Above high normal 0-3 [facility] [id number] [facility] [address] [address] Urine Squamous Epithelial Cells March 23, 2024 10:08am Occasional [HPF] Few [facility] [id number] [facility] [address] [address] Urine Bacteria March 23, 2024 10:08am None seen [HPF] [facility] [id number] [facility] [address] [address] Sodium Level March 23, 2024 10:08am 139 mmol/L 134-143 [facility] [id number] [facility] [address] [address] Potassium Level March 23, 2024 10:08am 3.8 mmol/L 3.4-5.0 [facility] [id number] [facility] [address] [address] Chloride Level March 23, 2024 10:08am 104 mmol/L 98-107 [facility] [id number] [address] [place] [address] 69760 Carbon Dioxide Level March 23, 2024 10:08am 25 mmol/L 22-30 [facility] [id number] [address] [place] [address] 50072 Anion Gap March 23, 2024 10:08am 10 mmol/L 4-12 [facility] [id number] [address] [place] [address] 78368 Blood Urea Nitrogen March 23, 2024 10:08am 13 mg/dL 8-21 [facility] [id number] [address] [place] [address] 74574 Creatinine March 23, 2024 10:08am 0.70 mg/dL 0.7-1.0 [facility] [id number] [address] [place] [address] 22694 Estimat Glomerular Filtration Rate March 23, 2024 10:08am > 60 >59 > OR = 60 ml/min/1.73 square metersThe MDRD formula used to calculate the eGFR result has not been validated in patients > 70 years of age. [facility] [id number] [address] [place] [address] 77678 Estimated Creatinine Clearance Calc March 23, 2024 10:08am 82 mL/min For use in prescription drug dose determination only. Reference ranges have not been establishe for this calculation. [facility] [id number] [address] [place] [address] 51218 Glucose Level March 23, 2024 10:08am 92 mg/dL 65-110 [facility] [id number] [address] [place] [address] 27506 Calcium Level March 23, 2024 10:08am 9.3 mg/dL 8.9-10.7 [facility] [id number] [address] [place] [address] 42583 Total Bilirubin March 23, 2024 10:08am 1.0 mg/dL 0.2-1.3 [facility] [id number] [address] [place] [address] 80727 Aspartate Amino Transf (AST/SGOT) March 23, 2024 10:08am 26 U/L 14-36 [facility] [id number] [address] [place], [place] [address] Alanine Aminotransfera se (ALT/SGPT) March 23, 2024 10:08am 13 U/L 6-35 [facility] [id number] [address] [place] [address] 18962 Total Protein March 23, 2024 10:08am 8.0 g/dL 6.3-8.6 [facility] [id number] [address] [place] [address] 57216 Albumin March 23, 2024 10:08am 4.6 g/dL 3.7-5.6 [facility] [id number] [address] [place] [address] 94419 Alkaline Phosphatase March 23, 2024 10:08am 50 U/L 45-116 [facility] [id number] [address] [place] [address] 32495 Lipase March 23, 2024 10:08am 87 U/L 23-300 [facility] [id number] [address] [place] [address] 54067 Bedside Urine HCG, Qualitative March 23, 2024 10:11am Negative Negative Negative Telcor POC Urine Casts March 23, 2024 10:08am 0-2 [facility] [id number] [address] [place], [place] [address] Add Urine Microanalysis March 23, 2024 10:08am Reviewed [facility] [id number] [address] [place] [address] 04384 Diagnostic Imaging Reports Author Santana Reilly [facility] March 23, 2024 11:39am Report Date/Time March 23, 2024 11 :41am [place] [id number] [place] Scan Report Signed Patient: Lorraine Pacheco : 2005 MR#: [id number] Age: 18 Acct:[id number] Loc: [facility] ADM Date: 03/23/[address]: Ordering Physician: Mega Swenson MD Date of Service: 03/23/24 Procedure(s): CTA chest abdomen pelvis Accession Number(s): [id number] cc: Mega Swenson MD; UNKNOWN,DOCTOR~ EXAMINATION: CTA chest abdomen pelvis DATE: 03/23/2024 10:44 INDICATION: Chest and abdominal pain with exertion TECHNIQUE: Computed tomographic angiography (CTA) of the chest, abdomen, and pelvis was performed without and with 100 mL Omnipaque-350 intravenous contrast.Volume-rendered 3D-reconstructions of the aorta and large arteries were constructed by the technologist on a separate workstation. Automated exposure control and iterative reconstruction technique were employed. The dose-length product was 282.17 mGy-cm. COMPARISON: None FINDINGS: Chest: Lungs are clear with no suspicious pulmonary nodules, pneumonia, pulmonary edema, pleural effusion or pneumothorax. No pulmonary embolism. Heart size is normal. No pericardial effusion. Thoracic aorta is normal in caliber with no dissection. Normal thymus in the anterior mediastinum. No pathologically enlarged thoracic lymphadenopathy. Bones are unremarkable. Abdomen and pelvis: Liver, gallbladder, spleen, pancreas, bilateral adrenal glands and kidneys are normal. Bowels including the appendix are normal. Anteverted uterus and decompressed bladder are unremarkable. No free intraperitoneal gas or fluid. No pathologically enlarged abdominal or pelvic lymphadenopathy. Abdominal aorta andthe major vessels of the aorta are normal with no aneurysm or dissection. 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 Bones are unremarkable. IMPRESSION: 1. No acute thoracic, abdominal or pelvic process. Reviewed, dictated and finalized at location A. Dictated By: Santana Reilly MD 03/23/24 1128 Signed By: <Electronically signed by Santana Reilly MD in [place]> 03/23/24 1139 Vital Signs Vital Reading Result Reference Range Collection Date/Time Height 67 [in_i] March 23 9:42am Weight 46.40 kg March 23 9:42am Body Temperature 97.9 [degF] 97.6-99.6 March 12:29pm Heart Rate 68 /min 60-100 March 23 12:29pm Respiratory rate 16 /min 12-March 12:29pm Oxygen saturation by Pulse oximetry 100 % 90-100 March 23, 2024 12 :29pm BP Systolic 126 mm[Hg] 100-140 March 23 12:29pm BP Diastolic 70 mm[Hg] 60-90 March 23 12:29pm Insurance Providers Guarantor Lorraine Pacheco Address [address] [place] [address] Contact Info. Home Phone: Payer Policy Id Coverage Id Subscriber's Name Subscriber Id Effective Date Expiration Date JANET Ferreira [id number] Lorraine Pacheco [id number] Encounters Encounter Location(s) Arrival/Admit Date Discharge/Depart Date Provider(s) Departed [facility] Emergency Department March 23, 2024 9:34am March 23, 2024 12:30pm null Plan of Treatment Future Tests Future scheduled test information is unavailable Pending Tests Test Name Ordered Date Scheduled Date Urine Culture March 23, 2024 10:08am Future Visits Future appointment information is unavailable Referrals to Other Providers Reason for Referral Referral Start Date Provider Provider Contact Information Provider Address Dick Dueñas MD Work Phone: [address] [place] [address] DOCTOR UNKNOWN Future Procedures Procedure Name Ordered Date Scheduled Date Urine Culture March 23, 2024 10:03am Octobe r 2023 10:08am Future Medications Future medication information is unavailable Patient Instructions Antibiotic Form Gastritis (ED) Hospital Discharge Instructions Additional Instructions You were seen in the emergency department. Your labs are not concerning for liver kidney injury. A scan of the chest and abdomen were not concerning for injury to the heart blood vessel in the chest. I recommend antacid medications and following up with a primary care doctor. If you develop new or worsening abdominal pain, abdominal pain with fevers, persistent vomiting, bleeding, or if you have other emergent concerns for life, limb, or eyesight, return to the emergency department.
--- OUTSIDE RECORDS SUMMARY | 2024-07-02 06:52 | XMS_ITS | Encounter Summary ---
Author Organization [facility] Address [address] [place] [address] Care Team Providers Care Rubber Stamp Dies Inspector Name Role Phone Rita Lynn MD Primary Care Provider [phone] Encounter Details Date Type Department Care Team (Latest Contact Info) Description 10/01/2019 Travel Social History Tobacco Use Types Packs/Day Years Used Date Smoking Tobacco: Never Assessed Sex and Gender Information Value Date Recorded Sex Assigned at Not on file Gender Identity Not on file Sexual Orientation Not on file COVID-19 Exposure Response Date Recorded In the last month, have you been in contact with someone who was confirmed or suspected to have Coronavirus / COVID-19? No / Unsure 10/01/2019 12:21 PM CDT documented as of this encounter Plan of Treatment Not on file documented as of this encounter Visit Diagnoses Not on filedocumented in this encounter Care Teams Rubber Stamp Dies Inspector Relationship Specialty Start Date End Date Rita Lynn MD [address] [place] [phone] PCP - General Pediatrics 09/13/19 documented as of this encounter
--- OUTSIDE RECORDS SUMMARY | 2024-07-02 06:52 | XMS_ITS | Encounter Summary ---
Author Organization [facility] Address [address] [place] [address]. [place], [place] [id number] [place] [address] Care Team Providers Care Business Operations Director Name Role Phone None, Provider Primary Care Provider Unavaila ble Encounter Details Date Type Department Care Team (Latest Contact Info) Description 06/24/2024 Travel Social History Tobacco Use Types Packs/Day [...] on file documented as of this encounter Plan of Treatment Not on file documented as of this encounter Visit Diagnoses Not on filedocumented in this encounter Care Teams Business Operations Director Relationship Specialty Start Date End Date None, ProviderMD PCP - General 02/26/21 documented as of this encounter
--- OUTSIDE RECORDS SUMMARY | 2024-07-02 06:52 | XMS_ITS | Encounter Summary ---
Author Organization [facility] Address [address] [place] [address]. [place] [address] [place] [address] Care Team Providers Care Hematologist Name Role Phone None, Provider MD Primary Care Provider Unavaila ble Reason for Visit * Reason Comments Vomiting Abdominal Pain Encounter Details Date Type Department Care Team (Late st Contact Info) Description 07/01/2022 9:15 AM OIL BURNER INSTALLER - 07/01/2022 2:15 PM OIL BURNER INSTALLER Emergency [facility] Emergency Room [address] [place], [place] [id number] Ashley Hdz, CORPORATE COMPLIANCE OFFICER [address], [place] [address] Vomiting; Abdominal Pain Discharge Disposition: Home or Self [...] Coronavirus/COVID-19? No / Unsure 07/01/2022 8:04 AM OIL BURNER INSTALLER documented as of this encounter Last Filed Vital Signs Vital Sign Reading Time Taken Comments Blood Pressure 98/62 07/01/2022 1:56 PM OIL BURNER INSTALLER Pulse 83 07/01/2022 1:56 PM OIL BURNER INSTALLER Temperature 36.8 ??C (98.3 ??F) 07/01/2022 1:56 PM CS T Respiratory Rate 16 07/01/2022 1:56 PM OIL BURNER INSTALLER Oxygen Saturation 98% 07/01/2022 1:56 PM OIL BURNER INSTALLER Inhaled Oxygen Concentration - - Weight 44.5 kg (98 lb) 07/01/2022 8:17 AM OIL BURNER INSTALLER Height 172.7 cm (5' 8 ) 07/01/2022 8:17 AM OIL BURNER INSTALLER Body Mass Index 14.9 07/01/2022 8:17 AM OIL BURNER INSTALLER Body Mass Index Percentile 0.01% 07/01/2022 8:1 7 AM OIL BURNER INSTALLER Growth Chart: [facility] (Girls, 2- 20 Years) documented in this encounter Discharge Instructions * Discharge Instructions* Ashley Willie Hdz, CORPORATE COMPLIANCE OFFICER - 07/01/2022 2:06 PM OIL BURNER INSTALLER As we discussed it is important that you follow-up with your primary and also have the GI consult outpatient as you have left [facility] AGAINST MEDICAL ADVICE. Your labs today are normal, Damir reviewed all of your charts from [facility] and the results. I do agree you need to have a further GI evaluation with imaging but this likely will have to be done outpatient. A serious cause of the abdominal pain has not been found at this time. It is important that you carefully watch for changes in the abdominal pain that might suggest a serious condition (such as appendicitis that is difficult to diagnose early). See your doctor or return to the emergency department immediately if your condition gets worse. You can also call us if you are not sure what to do. See your doctor tomorrow or as soon as possible if you are not getting better. These symptoms suggest serious causes of abdominal pain. Call your doctor or return to the emergency department if you are feeling worse or if: -You are unable to walk easily or are walking in a bent-over position. -Stepping or jumping results in severe pain. -You are experiencing pain in the right lower part of the abdomen. -The abdomen is hard and painful when you press on it. -There is severe abdominal pain when coughing. -You are vomiting or gagging. -Vomiting is bloody or green or looks like chocolate or coffee. -The belly looks very full or big. -You are experiencing severe pain every 3 to 20 minutes. -Stool (poop) is bloody or black. -You are drowsy, weak, fussy, or pale . Emergency Departments (ED) provide medical screening exams and initial stabilizing treatment of emergency medical conditions. Medicine is an inexact science and many conditions cannot be diagnosed or completely treated during a single ED visit. Your treating healthcare provider(s) today feel yourcondition has been stabilized so further care as an outpatient is reasonable. Emergency care does not substitute for complete, ongoing, or follow-up care by your primary care physician or career consultant. Follow up in 2-3 days with your primary care provider, or if symptoms worsen go to [facility] or the ER. Our practice is committed to providing you the very best in healthcare. It is our pleasure to have the opportunity to take care of you. BURNER INSTALLER * Attachments The following attachments cannot be sent through Care Everywhere. * Minimize Weight Loss ([place] Island[place]) * Severe Abdominal Pain Discharge Instructions, Child ([place]) * Nausea and Vomiting Discharge Instructions, Adult ([place]) documented in this encounter Medications at Time of Discharge famotidine 20 MG tablet Take 1 tablet (20 mg total) by mouth 2 (two) times daily. 28 tablet 02/26/2021 06/24/19 25 ondansetron (ZOFRAN-ODT) 4 MG disintegrating tablet Take 1 tablet (4 mg total) by mouth every 8 (eight) hours as needed for Nausea. 20 tablet 07/01/2022 06/24/19 25 promethazine (PROMETHEGAN) [address] 1 suppository (25 mg total) rectally every 6 (six) hours as needed for Nausea. 12 each 07/01/2022 07/08/19 23 documented as of this encounter ED Notes * Enoch Inman RN - 07/01/2022 1:19 PM CST 43 page fax from [facility] received and given to provider BURNER INSTALLER * Enoch Inman RN - 07/01/2022 11:53 AM CST Called [facility] to check on status of records. They request refax of consent to another fax number BURNER INSTALLER * Ashley Hdz APRN - 07/01/2022 10:25 AM CST [facility] EMERGENCY DEPARTMENT ENCOUNTER PROVIDER NOTE Patient name: Lorraine Pacheco DOS: 07/01/2022 Primary Care Provider: Provider MD Alexei History obtained from: chart review, the patient and EMS. Chief Complaint Chief Complaint Patient presents with ??? Vomiting ??? Abdominal Pain History of Present Illness Lorraine Pacheco is a 17-year-old female recently seen in the emergency department at [facility] where she left AMA as she was not happy with the care she received with diagnosis of low magnesium/potassium who presents to the Emergency Department today by ambulance for evaluation of abdominal pain, nausea, vomiting over the last 3 weeks. Also seen at [facility] on 06-26-22 for similar symptoms. Patient states that she has abdominal pain, decreased appetite, cannot keep anything down, she has lost 30 pounds recently. She states she has not used marijuana recently. She had also fallen here while in the bathroom due to weakness. Complained of wrist pain. Medical History ALLERGIES: No Known Allergies MEDICATIONS: Prior to Admission medications Medication Sig Start Date End Date Taking? Authorizing Provider ondansetron (ZOFRAN-ODT) 4 MG disintegrating tablet Take 1 tablet (4 mg total) by mouth every 8 (eight) hours as needed for Nausea. 07/01/22 Yes Ashley Hdz APRN promethazine (PROMETHEGAN) [address] 1 suppository (25 mg total) rectally every 6 (six) hours as needed for Nausea. 07/01/22 07/08/22 Yes Ashley Willie Hayr CORPORATE COMPLIANCE OFFICER famotidine 20 MG tablet Take 1 tablet (20 mg total) by mouth 2 (two) times daily. 02/26/21 Ivy Olmos MD PAST MEDICAL HISTORY: History reviewed. No pertinent past medical history. PAST SURGICAL HISTORY: History reviewed. No pertinent surgical history. FAMILY HISTORY: No family history on file. SOCIAL HISTORY: Social History Tobacco Use ??? Smoking status: Never ??? Smokeless tobacco: Never Vaping Use ??? Vaping Use: Never used Substance Use Topics ??? Alcohol use: Never ??? Drug use: Not Currently Types: Marijuana Comment: recently quit Social Determinants of Health Tobacco Use: Low Risk ??? Smoking Tobacco Use: Never ??? Smokeless Tobacco Use: Never ??? Passive Exposure: Not on file Alcohol Use: Not on file Financial Resource Strain: Not on file Food Insecurity: Not on file Transportation Needs: Not on file Physical Activity: Not on file Stress: Not on file Social Connections: Not on file Intimate Partner Violence: Not on file Depression: Not on file Housing Stability: Not on file Review of Systems Review of Systems Constitutional: Positive for appetite change (decreased), fatigue and unexpected weight change. Negative for activity change, chills and fever. HENT: Negative for congestion, ear pain, postnasal drip, rhinorrhea, sinus pressure, sinus pain, sore throat and trouble swallowing. Eyes: Negative for visual disturbance. Respiratory: Negative for cough, chest tightness, shortness of breath, wheezing and stridor. Cardiovascular: Negative for chest pain, palpitations and leg swelling. Gastrointestinal: Positive for abdominal pain, diarrhea, nausea and vomiting. Negative for abdominal distention and constipation. Endocrine: Negative. Genitourinary: Negative for difficulty urinating, dysuria, flank pain and hematuria. Musculoskeletal: Negative for arthralgias, joint swelling and neck pain. Skin: Negative for color change, pallor and wound. Neurological: Negative. Negative for dizziness, seizures, syncope, light- headedness and headaches. Psychiatric/Behavioral: Negative. Negative for agitation, hallucinations and suicidal ideas. Except as noted in HPI, 10 point review of systems was completed and otherwise unremarkable or noncontributory to chief complaint. Physical Exam Filed Vitals: 07/01/22 0809 07/01/22 0817 07/01/22 1356 BP: (!) 130/100 98/62 Pulse: 87 83 Resp: 20 16 Temp: 98.3 ??F (36.8 ??C) 98.3 ??F (36.8 ??C) TempSrc: Oral SpO2: 99% 98% Weight: 44.5 kg (98 lb) Height: 5' 8 (1.727 m) Physical Exam Vitals and nursing note reviewed. Constitutional: General: She is not in acute distress. Appearance: She is not ill-appearing or toxic-appearing. Comments: Patient resting in exam chair. Respirations regular, even, nonlabored. No acute distress noted. Thin apperance HENT: Head: Normocephalic. Nose: Nose normal. Mouth/Throat: Mouth: Mucous membranes are moist. Eyes: Conjunctiva/sclera: Conjunctivae normal. Cardiovascular: Rate and Rhythm: Normal rate and regular rhythm. Pulses: Normal pulses. Heart sounds: Normal heart sounds. Pulmonary: Effort: Pulmonary effort is normal. Breath sounds: Normal breath sounds. No stridor. No rhonchi. Abdominal: General: Bowel sounds are normal. There is no distension. Palpations: Abdomen is soft. There is no hepatomegaly, splenomegaly, mass or pulsatile mass. Tenderness: There is abdominal tenderness. There is no guarding or rebound. Hernia: No hernia is present. Comments: Diffusely tender with palpation throughout abdomen. will not let me do any further exam just light palpation. No localized tenderness. Musculoskeletal: General: Normal range of motion. Cervical back: Normal range of motion. Skin: General: Skin is warm. Capillary Refill: Capillary refill takes less than 2 seconds. Neurological: Mental Status: She is alert and oriented to person, place, and time. Psychiatric: Mood and Affect: Mood normal. Diagnostic Studies / Procedures ELECTROCARDIOGRAMS: No results found for this visit on 07/01/22. LABORATORY STUDIES: Results for orders placed or performed during the hospital encounter of 07/01/22 CBC W/DIFF AUTOMATED Result Value Ref Range WBC 5.4 4.5 - 13.0 x10'3/uL RBC 4.71 4.20 - 5.40 x10'6/uL HGB 13.1 12.0 - 16.0 G/DL HCT 40.1 38.0 - 48.0 % MCV 85.1 81.0 - 99.0 FL MCH 27.8 27.0 - 31.0 PG MCHC 32.7 32.0 - 36.0 G/DL RDW 13.0 11.5 - 14.5 % PLT 231 130 - 400 x10'3/uL MPV 10.8 9.3 - 12.2 FL DIFFERENTIAL TYPE AUTOMATED DIFFERENTIAL NEUTROPHILS 63.9 % LYMPHOCYTES 28.3 % MONOCYTES 6.1 % EOSINOPHILS 0.6 % BASOPHILS 0.7 % IMMATURE GRANS 0.4 % ABS. NEUTROPHILS TOTAL 3.45 1.80 - 8.00 x10'3/uL ABS. LYMPHOCYTES 1.53 1.20 - 5.20 x10'3/uL ABS. MONOCYTES 0.33 0.24 - 0.86 x10'3/uL ABS. EOSINOPHILS 0.03 (L) 0.04 - 0.36 x10'3/uL ABS. BASOPHILS 0.04 0.01 - 0.08 x10'3/uL ABS. IMMATURE GRANULOCYTES 0.02 0.00 - 0.49 x10'3/uL COMPREHENSIVE METABOLIC PANEL Result Value Ref Range GLUCOSE 75 70 - 99 MG/DL BUN 10 7 - 18 MG/DL CREATININE S/P/B 0.83 0.55 - 1.02 MG/DL SODIUM 136 136 - 145 MMOL/L POTASSIUM 4.2 3.5 - 5.1 MMOL/L CHLORIDE S/P/B 101 100 - 108 MMOL/L CO2 25.0 21 - 32 MMOL/L CALCIUM 8.9 8.5 - 10.1 MG/DL BILIRUBIN TOTAL S/P/B 2.0 (H) 0.2 - 1.1 MG/DL TOTAL PROTEIN S/P/B 7.4 6.4 - 8.2 G/DL ALBUMIN S/P/B 3.9 3.4 - 5.0 G/DL AST 20 15 - 37 U/L ALT 14 14 - 55 U/L ALKALINE PHOSPHATASE S/P/B 54 50 - 136 U/L ANION GAP 10.0 5 - 15 MMOL/L BUN CREATININE RATIO 12.0 6 - 26 A/G RATIO 1.1 1.0 - 2.0 RATIO GFR ESTIMATE >90 >90 ML/MIN/1.73 M2 LIPASE Result Value Ref Range LIPASE 106 73 - 393 UNITS/L MAGNESIUM Result Value Ref Range MAGNESIUM 2.1 1.8 - 2.4 MG/DL PHOSPHORUS, INORGANIC PHOSPHATE Result Value Ref Range PHOSPHORUS 2.8 2.5 - 4.9 MG/DL URINALYSIS Result Value Ref Range Specimen Type URINE CLEAN CATCH COLOR (U) COLORLESS TRANSPARENCY CLEAR Specific [place] (U) 1.011 1.001 - 1.030 U PH 6.5 5.0 - 9.0 LEUKOCYTE ESTERASE NEGATIVE NEGATIVE NITRITES NEGATIVE NEGATIVE PROTEIN (U) NEGATIVE <30 MG/DL URINE GLUCOSE NORMAL NORMAL MG/DL U KETONES 40 (A) NEGATIVE MG/DL UROBILINOGEN NORMAL NORMAL MG/DL BILIRUBIN (U) NEGATIVE NEGATIVE MG/DL BLOOD NEGATIVE NEGATIVE CULTURE & SENSITIVITY INDICATED? CULTURE IS NOT INDICATED POCT urine Result Value Ref Range URINE HCG TEST NEGATIVE NEGATIVE Internal Control: VALID VALID IMAGING STUDIES XR WRIST RT MIN 3V Final Result by User, [id number] (07/01 915) EXAMINATION: XR WRIST RT MIN 3V INDICATIONS: Pain COMPARISON: NONE FINDINGS: 3 views of the right wrist demonstrate anatomic alignment without fracture, region of periosteal elevation, or aggressive osseous lesion. The scapholunate and lunotriquetral intervals are maintained. The carpal rows are preserved. Joint spaces are preserved and the subchondral surfaces are smooth. The soft tissue fat planes are preserved without discrete soft tissue mass, localized swelling, or suspicious calcification. IMPRESSION: Anatomic alignment without fracture or localizing abnormality. If there is clinical concern for radiographically occult fracture, then conservative management and follow up radiographs are recommended in 10-14 days Referred By: Interpreted By: Abilio England MD, 07/01/2022 9:13 AM ED Course / Medical Decision Making ED Course as of 07/01/22 2203 [place] Jul 01, 2022 1034 XR WRIST RT MIN 3V Per rad read: IMPRESSION: Anatomic alignment without fracture or localizing abnormality. If there is clinical concern for radiographically occult fracture, then conservative management andfollow up radiographs are recommended in 10-14 days [KP] 1100 Discussed with mother and patient that I was waiting on fax results from outside hospital. Discussed giving pt medications for n/v and pain. Patient states she has not used any marijuana. Her abdomen hurts all over and she doesn't want me to touch it. [KP] 1107 POCT urine neg [KP] 1111 CBC W/DIFF AUTOMATED(!) Without abnormality [KP] 1111 COMPREHENSIVE METABOLIC PANEL(!) Bili slightly elevated, otherwise no abnormalities [KP] 1119 URINALYSIS(!) Given 1L of LR and initial 1L of NS ordered [KP] ED Course User Index [KP] Ashley Hdz APRN Medical Decision Making Abdominal pain: undiagnosed new problem with uncertain prognosis Details: Patient has been seen at 2 other outside hospitals for the same problem, she had normal CTabdomen pelvis based on outpatient records. Was admitted for low electrolytes and was felt to have an upper and lower scope done while she was inpatient by GI, they had left [facility] AMA. Patient's labs today are completely unremarkable, she has mild abdominal discomfort. She was given IV fluids, 2 rounds of medications. I had a long discussion with the patient as well as her family member that at this time there is nothing emergent in her work-up that requires admission. Discussed that due to her 30 pound weight loss as well as her decreased appetite and her nausea vomiting abdominal discomfort she definitely needs to follow-up with GI but this is not something that needs to be done emergently here today. Discussed that they could try to go back to [facility] where she was initially seen and was supposed to see GI. Discussed also to not use any type of marijuana as at her first visit [facility] she tested positive which this could be setting off her nausea and vomiting. Patient verbalized understanding although she was not happy with the discussion. She was alert and oriented x4. Decreased appetite: undiagnosed new problem with uncertain prognosis Details: Not emergent, needs further work-up done outpatient. Nausea and vomiting: undiagnosed new problem with uncertain prognosis Details: Given medications while here, she had no further vomiting while in the ED. Amount and/or Complexity of Data Reviewed External Data Reviewed: labs, radiology, ECG and notes. Details: reviewed visit from [facility] seen on 06-26-22. Per ED provider note patient had labs done which showed no acute abnormalities. she was positive for cannabis in her urine andthe provider had discussed cannabinoid hyperemesis syndrome. received fax from [facility], reviewed entire chart of 45 pages. Patient was admitted for low potassium, low magnesium and low calcium as well as the persistent nausea and vomiting. Based on the notes from the providers in consult cardiology was consulted due to a slightly abnormal EKG. She had a normal troponin, echo was obtained that was normal. GI was consulted and was going to do a scope to rule out any esophagitis/gastritis but patient had left AMA this morning. Appeared there was no other emergent findings noted on her work-up. She was given IV fluids. Also given medications Labs: ordered. Decision-making details documented in ED Course. Radiology: independent interpretation performed. Decision-making details documented in ED Course. Details: Wrist x-ray shows no acute fracture, patient had a mild fall while in the bathroom. Risk OTC drugs. Prescription drug management. Decision regarding hospitalization. Medications lactated ringers bolus infusion 1,000 mL (0 mLs Intravenous Infusion Stop Time 07/01/22 1154) ondansetron (ZOFRAN) injection 4 mg (4 mg Intravenous Given 07/01/22 0927) famotidine (PF) (PEPCID) injection 20 mg (20 mg Intravenous Given 07/01/22 0929) sodium chloride 0.9% bolus infusion 1,000 mL (0 mLs Intravenous Infusion Stop Time 07/01/22 1358) diphenhydrAMINE (BENADRYL) injection 25 mg (25 mg Intravenous Given 07/01/22 1254) metoclopramide (REGLAN) injection 5 mg (5 mg Intravenous Given 07/01/22 1255) Clinical Impression Nausea and vomiting Abdominal pain (Primary) Decreased appetite Disposition: Discharge Discharge Medication List as of 07/01/2022 2:10 PM START taking these medications Details ondansetron (ZOFRAN-ODT) 4 MG disintegrating tablet Take 1 tablet (4 mg total) by mouth every 8 (eight) hours as needed for Nausea., Starting [place]aleigh 07/01/2022, Eprescribe Class: Eprescribe Pharmacy: [id number] [place] [address] (Ph #: [phone]) promethazine (PROMETHEGAN) [address] 1 suppository (25 mg total) rectally every 6 (six) hours as needed for Nausea., Starting Kaleigh 07/01/2022, Until Kaleigh 07/08/2022 at 2359, Eprescribe Class: Eprescribe Pharmacy: [id number], [employer] - [address] AT [address] (Ph #: [phone]) Follow-up: No follow-up provider specified. Ashley Hdz, CORPORATE COMPLIANCE OFFICER 07/01/2022 Please note that dictated portions of this note were made using [employer] speech recognition software.Occasional wrong word or sound-alike substitutions may have occurred due to the inherent limitations of voice recognition software. Please read the chart carefully and recognize, using context, where the substitutions may have occurred. Ashley Hdz APRN 07/01/222202 Cosigned by Ivy Olmos MD at 07/04/2022 6:27 PM OIL BURNER INSTALLER BURNER INSTALLER BURNER INSTALLER * Amparo Batres RN - 07/01/2022 8:40 AM CST Pt in waiting room with visitor. Tech to triage to inform RN of a phone call to ER reporting a pt fall in the restroom. This RN spoke with pt and visitor sitting in waiting room. Visitor reports pt fall after standing after using restroom. Pt reports she caught herself with Rt wrist. Denies LOC or hitting head. ERP and CN aware. Pt resting with visitor in waiting room and reminded to notify RN ortech for assistance to the restroom. BURNER INSTALLER BURNER INSTALLER BURNER INSTALLER * LALITO Lazaro - 07/01/2022 8:18 AM CST [place], [place] EMERGENCY DEPARTMENT ENCOUNTER Medical Screening Examination 07/01/22 8:18 AM Chief Complaint : Vomiting and Abdominal Pain HPI : Lorraine Pacheco is a 17-year-old female who presents for evaluation of worsening abdominal pain with nausea vomiting over the past 3 weeks. Patient did leave AMA from [facility] today as shewas concerned with care she was received Vital Signs: Filed Vitals: 07/01/22 0809 07/01/22 0817 BP: (!) 130/100 Pulse: 87 Resp: 20 Temp: 98.3 ??F (36.8 ??C) SpO2: 99% Weight: 44.5 kg (98 lb) Height: 5' 8 (1.727 m) Physical exam: A brief physical exam was completed to facilitate/expedite patient care. Fernández findings include:. Patient tearful in triage setting, tenderness to abdomen Plan: Labs were ordered to facilitate patient care. LALITO Lazaro 07/01/22 0852 Cosigned by Ivy Olmos MD at 07/01/2022 8:57 AM OIL BURNER INSTALLER BURNER INSTALLER BURNER INSTALLER * Amparo Batres RN - 07/01/2022 8:13 AM CST Pt to triage c/o vomiting and chills x3 weeks. Denies diarrhea, blood in stool, or fevers. EMS reports decreased magnesium and K+ levels and left [facility] this morning. 10/10 abdominal pain. AOx4. VS stable. BURNER INSTALLER documented in this encounter Plan of Treatment Not on file documented as of this encounter Procedures Procedure Name Priority Date/Time Associated Diagnosis Comments POCT URINE (BACK OFFICE) STAT 07/01/2022 11:06 AM OIL BURNER INSTALLER HC URINALYSIS AUTO W/O MICRO STAT 07/01/2022 11:00 AM OIL BURNER INSTALLER COMPREHENSIVE METABOLIC PANEL STAT 07/01/2022 9:30 AM OIL BURNER INSTALLER CBC W/DIFF AUTOMATED STAT 07/01/2022 9:30 AM OIL BURNER INSTALLER PHOSPHORUS, INORGANIC PHOSPHATE STAT 07/01/2022 9:30 AM OIL BURNER INSTALLER MAGNESIUM STAT 07/01/2022 9:30 AM OIL BURNER INSTALLER LIPASE STAT 07/01/2022 9:30 AM OIL BURNER INSTALLER XR WRIST RT MIN 3V STAT 07/01/2022 9: 02 AM OIL BURNER INSTALLER documented in this encounter Results * POCT urine (07/01/2022 11:06 AM OIL BURNER INSTALLER) URINE HCG TEST NEGATIVE NEGATIVE Internal Control: VALID VALID Wilber STARKEY POINT OF CARE TEST ORDERABL ES Final Result * (ABNORMAL) URINALYSIS (07/01/2022 11:00 AM OIL BURNER INSTALLER) SPECIMEN TYPE URINE CLEAN CATCH 07/01/2022 11:04 AM [facility] COLOR (U) COLORLESS 07/01/2022 11:18 AM [facility] TRANSPARENCY CLEAR 07/01/2022 11:18 AM [facility] SPECIFIC GRAVITY (U) 1.011 1.001 - 1.030 07/01/2022 11:18 AM [facility] U PH 6.5 5.0 - 9.0 07/01/2022 11:18 AM [facility] LEUKOCYTES (U) NEGATIVE NEGATIVE 07/01/2022 11:18 AM [facility] NITRITES NEGATIVE NEGATIVE 07/01/2022 11:18 AM [facility] PROTEIN (U) NEGATIVE <30 MG/DL 07/01/2022 11:18 AM [facility] URINE GLUCOSE NORMAL NORMAL MG/DL 07/01/2022 11:18 AM [facility] KETONES MG/DL (U) 40(A) NEGATIVE MG/DL 07/01/2022 11:18 AM [facility] UROBILINOGEN NORMAL NORMAL MG/DL 07/01/2022 11:18 AM [facility] BILIRUBIN (U) NEGATIVE NEGATIVE MG/DL 07/01/2022 11:18 AM [facility] BLOOD (U) NEGATIVE NEGATIVE 07/01/2022 11:18 AM [facility] CULTURE & SENSITIVITY INDICATED? CULTURE IS NOT INDICATED 07/01/2022 11:18 AM OIL BURNER INSTALLER [facility] URINE SPECIMEN OBTAINED BY CLEAN CATCH PROCEDURE / Unknown 07/01/2022 11:00 AM OIL BURNER INSTALLER us Wilber STARKEY URINE ORDERABLES Final Resu lt Performing Organization Address City/[facility]/ZIP Co de Phone Number [facility] [address] [place] [id number], [place] [phone] * PHOSPHORUS, INORGANIC PHOSPHATE (07/01/2022 9:30 AM OIL BURNER INSTALLER) PHOSPHORUS 2.8 2.5 - 4.9 MG/DL 07/01/2022 10:22 AM OIL BURNER INSTALLER [facility] 07/01/2022 9:30 AM OIL BURNER INSTALLER us Wilber STARKEY LABORATORY Final Resul t Performing Organization Address [facility] Co de Phone Number [facility] [address] [place] [address], [place] [phone] * MAGNESIUM (07/01/2022 9:30 AM OIL BURNER INSTALLER) MAGNESIUM 2.1 1.8 - 2.4 MG/DL 07/01/2022 10:22 AM OIL BURNER INSTALLER [facility] 07/01/2022 9:30 AM OIL BURNER INSTALLER us Wilber [facility] Final Resul t Performing Organization Address City/[facility]/ZIP Co de Phone Number [facility] [address] [place] [address], [place] [phone] * LIPASE (07/01/2022 9:30 AM OIL BURNER INSTALLER) LIPASE 106 73 - 393 UNITS/L 07/01/2022 10:22 AM [facility] 07/01/2022 9:30 AM OIL BURNER INSTALLER Wilber [facility] Final Resul t [facility] [address] [place] [address], * (ABNORMAL) COMPREHENSIVE METABOLIC PANEL (07/01/2022 9:30 AM OIL BURNER INSTALLER) Pathologist [facility] GLUCOSE 75 70 - 99 MG/DL 07/01/2022 10:22 AM [facility] BUN 10 7 - 18 MG/DL 07/01/2022 10:22 AM [facility] CREATININE S/P/B 0.83 0.55 - 1.02 MG/DL 07/01/2022 10:22 AM [facility] SODIUM S/P/B 136 136 - 145 MMOL/L 07/01/2022 10:22 AM [facility] POTASSIUM S/P/B 4.2 3.5 - 5.1 MMOL/L 07/01/2022 10:22 AM [facility] CHLORIDE S/P/B 101 100 - 108 MMOL/L 07/01/2022 10:22 AM [facility] CO2 25.0 21 - 32 MMOL/L 07/01/2022 10:22 AM [facility] CALCIUM S/P/B 8.9 8.5 - 10.1 MG/DL 07/01/2022 10:22 AM [facility] BILIRUBIN TOTAL S/P/B 2.0(H) 0.2 - 1.1 MG/DL 07/01/2022 10:22 AM [facility] Comment: THIS ASSAY IS NOT RECOMMENDED FOR PATIENTS UNDERGOING TREATMENT WITH ELTROMBOPAG DUE TO THE POTENTIAL FOR FALSELY ELEVATED RESULTS. TOTAL PROTEIN S/P/B 7.4 6.4 - 8.2 G/DL 07/01/2022 10:22 AM [facility] ALBUMIN S/P/B 3.9 3.4 - 5.0 G/DL 07/01/2022 10:22 AM [facility] AST 20 15 - 37 U/L 07/01/2022 10:22 AM [facility] ALT 14 14 - 55 U/L 07/01/2022 10:22 AM [facility] ALKALINE PHOSPHATASE S/P/B 54 50 - 136 U/L 07/01/2022 10:22 AM [facility] ANION GAP 10.0 5 - 15 MMOL/L 07/01/2022 10:22 AM [facility] BUN CREATININE RATIO 12.0 6 - 26 07/01/2022 10:22 AM [facility] A/G RATIO 1.1 1.0 - 2.0 RATIO 07/01/2022 10:22 AM [facility] GFR ESTIMATE >90 >90 ML/MIN/1.7 3 M2 07/01/2022 10:22 AM [facility] Comment: NOTE: eGFR is not calculated for patients <18 years of age. This is an estimated GFR calculation using the new CKD EPI creatinine equation without race and so does not require a correction factor for race. This estimated GFR should not be used for calculating drug doses. 07/01/2022 9:30 AM [facility] Wilber [facility] Final Resul t [facility] [address] [place] [address], * (ABNORMAL) CBC W/DIFF AUTOMATED (07/01/2022 9:30 AM OIL BURNER INSTALLER) [facility] WBC 5.4 4.5 - 13.0 x10'3/uL 07/01/2022 9:50 AM [facility] RBC 4.71 4.20 - 5.40 x10'6/uL 07/01/2022 9:50 AM [facility] HGB 13.1 12.0 - 16.0 G/DL 07/01/2022 9:50 AM [facility] HCT 40.1 38.0 - 48.0 % 07/01/2022 9:50 AM [facility] MCV 85.1 81.0 - 99.0 FL 07/01/2022 9:50 AM [facility] MCH 27.8 27.0 - 31.0 PG 07/01/2022 9:50 AM [facility] MCHC 32.7 32.0 - 36.0 G/DL 07/01/2022 9:50 AM [facility] RDW 13.0 11.5 - 14.5 % 07/01/2022 9:50 AM [facility] PLT 231 130 - 400 x10'3/uL 07/01/2022 9:50 AM [facility] MPV 10.8 9.3 - 12.2 FL 07/01/2022 9:50 AM [facility] DIFFERENTIAL TYPE AUTOMATED DIFFERENTIAL 07/01/2022 9:50 AM [facility] NEUTROPHILS % 63.9 % 07/01/2022 9:50 AM [facility] LYMPHOCYTES % 28.3 % 07/01/2022 9:50 AM [facility] MONOCYTES % 6.1 % 07/01/2022 9:50 AM [facility] EOSINOPHILS 0.6 % 07/01/2022 9:50 AM [facility] BASOPHILS 0.7 % 07/01/2022 9:50 AM [facility] IMMATURE GRANS % 0.4 % 07/01/19 9:50 AM [facility] ABS. NEUTROPHILS TOTAL 3.45 1.80 - 8.00 x10'3/uL 07/01/2022 9:50 AM [facility] ABS. LYMPHOCYTES 1.53 1.20 - 5.20 x10'3/uL 07/01/2022 9:50 AM [facility] ABS. MONOCYTES 0.33 0.24 - 0.86 x10'3/uL 07/01/2022 9:50 AM [facility] ABS. EOSINOPHILS 0.03(L) 0.04 - 0.36 x10'3/uL 07/01/2022 9:50 AM [facility] ABS. BASOPHILS 0.04 0.01 - 0.08 x10'3/uL 07/01/2022 9:50 AM [facility] ABS. IMMATURE GRANULOCYTES 0.02 0.00 - 0.49 x10'3/uL 07/01/2022 9:50 AM [facility] 07/01/2022 9:30 AM OIL BURNER INSTALLER us Wilber [facility] Final Resul t [facility] [address] [place] [address], * XR WRIST RT MIN 3V (07/01/2022 9:02 AM OIL BURNER INSTALLER) Anatomical Region Laterality Modality Wrist Radiographic Clair ging 07/01/2022 9:13 AM OIL BURNER INSTALLER Impressions 07/01/2022 9:15 AM OIL BURNER INSTALLER IMPRESSION: Anatomic alignment without fracture or localizing abnormality. If there is clinical concern for radiographically occult fracture, then conservative management and follow up radiographs are recommended in 10-14 days Referred By: ?? Interpreted By: Abilio England MD, 07/01/2022 9:13 AM Narrative 07/01/2022 9:15 AM OIL BURNER INSTALLER EXAMINATION: XR WRIST RT MIN 3V INDICATIONS: Pain COMPARISON: NONE FINDINGS: 3 views of the right wrist demonstrate anatomic alignment without fracture, region of periosteal elevation, or aggressive osseous lesion. The scapholunate and lunotriquetral intervals are maintained. The carpal rows are preserved. Joint spaces are preserved and the subchondral surfaces are smooth. The soft tissue fat planes are preserved without discrete soft tissue mass, localized swelling, or suspicious calcification. Procedure Note Abilio England MD - 07/01/2022 EXAMINATION: XR WRIST RT MIN 3V INDICATIONS: Pain COMPARISON: NONE FINDINGS: 3 views of the right wrist demonstrate anatomic alignment withoutfracture, region of periosteal elevation, or aggressive osseous lesion. The scapholunate and lunotriquetral intervals are maintained. The carpal rows are preserved. Joint spaces are preserved and the subchondral surfaces are smooth. The soft tissue fat planes are preserved without discrete soft tissuemass, localized swelling, or suspicious calcification. IMPRESSION: Anatomic alignment without fracture or localizingabnormality. If there is clinical concern for radiographically occult fracture, thenconservative management and follow up radiographs are recommended in 10-14days Referred By: Interpreted By: Abilio England MD, 07/01/2022 9:13 AM Wilber [facility] Final Resul t documented in this encounter Visit Diagnoses Diagnosis Abdominal pain- Primary Abdominal pain, unspecified site Nausea and vomiting Nausea with vomiting Decreased appetite Anorexia documented in this encounter Administered Medications Inactive Administered Medications - up to 3 most recent administrations Medication Order MAR Action Action Date Dose Rate Site diphenhydrAMINE (BENADRYL) injection 25 mg 25 mg, Intravenous, Once, 1 dose, On [place] 07/01/22 at 1130, For IV administration, give no faster than 25 mg/min. Given 07/01/2022 12:54 PM OIL BURNER INSTALLER 25 mg famotidine (PF) (PEPCID) injection 20 mg 20 mg, Intravenous, Once, 1 dose, On [place] 07/01/22 at 0830, IV Push over 2 minutes Given 07/01/2022 9:29 AM OIL BURNER INSTALLER 20 mg lactated ringers bolus infusion 1,000 mL 1,000 mL, Intravenous, Administer over 15 Minutes, Once, 1 dose, On [place] 07/01/22 at 0830 New Bag 07/01/2022 9:28 AM OIL BURNER INSTALLER 1,000 mLs metoclopramide (REGLAN) injection 5 mg 5 mg, Intravenous, Once, 1 dose, On [place] 07/01/22 at 1130, Administer IV over 1-2 minutes Given 07/01/2022 12:55 PM OIL BURNER INSTALLER 5 mg ondansetron (ZOFRAN) injection 4 mg 4 mg, Intravenous, Once, 1 dose, On [place] 07/01/22 at 0830, IV push over 2-5 minutes. Given 07/01/2022 9:27 AM OIL BURNER INSTALLER 4 mg sodium chloride 0.9% bolus infusion 1,000 mL 1,000 mL, Intravenous, Administer over 60 Minutes, Once, 1 dose, On [place] 07/01/22 at 1130 New Bag 07/01/2022 12:55 PM OIL BURNER INSTALLER 1,000 mLs documented in this encounter Active and Recently Administered Medications Times are shown in OIL BURNER INSTALLER. Scheduled Medication Order 06/29/2022 06/30/2022 07/01/2022 diphenhydrAMINE (BENADRYL) injection 25 mg (COMPLETED) 25 mg, Intravenous, Once, 1 dose, On [place] 07/01/22 at 1130, For IV administration, give no faster than 25 mg/min. 1254 (Given - Provid er: Arlen Waddell RN) famotidine (PF) (PEPCID) injection 20 mg (COMPLETED) 20 mg, Intravenous, Once, 1 dose, On [place] 07/01/22 at 0830, IV Push over 2 minutes 0929 (Given - Provid er: Aranza Hand RN) hyoscyamine (LEVSIN) injection 0.25 mg 0.25 mg, Intravenous, Once, 1 dose, On [place] 07/01/22 at 1130 1357 (Not Given - Pr ovider: Arlen Waddell RN - Reason: Provider Order) lactated ringers bolus infusion 1,000 mL (COMPLETED) 1,000 mL, Intravenous, Administer over 15 Minutes, Once, 1 dose, On [place] 07/01/22 at 0830 0928 (New Bag - Prov ider: Aranza Hand RN)1154 (Infusion Stop Time - Provider: Aranza Hand RN) metoclopramide (REGLAN) injection 5 mg (COMPLETED) 5 mg, Intravenous, Once, 1 dose, On [place] 23 at 1130, Administer IV over 1-2 minutes 1255 (Given - Provid er: Arlen Waddell RN) ondansetron (ZOFRAN) injection 4 mg (COMPLETED) 4 mg, Intravenous, Once, 1 dose, On [place] 07/01/22 at 0830, IV push over 2-5 minutes. 0927 (Given - Provid er: Aranza Hand RN) sodium chloride 0.9% bolus infusion 1,000 mL (COMPLETED) 1,000 mL, Intravenous, Administer over 60 Minutes, Once, 1 dose, On [place] 23 at 1130 1255 (New Bag - Prov ider: Arlen Waddell RN)1358 (Infusion Stop Time - Provider: Arlen Waddell RN) documented in this encounter Care Teams Hematologist Relationship Specialty Start Date End Date None, Provider, PCP - General 02/26/21 documented as of this encounter
--- OUTSIDE RECORDS SUMMARY | 2024-07-02 06:52 | XMS_ITS | Patient Health Summary ---
Author Organization [facility] Address [address] [place] [address] Care Team Providers Care Rouge Sifter Name Role Phone Rita Lynn MD Primary Care Provider [phone] Note from [facility],non-owned Affiliates and Associated Physician Practices is amultiple site organization consisting of ambulatory clinics and hospital sitesin [place], [place] and [place]. This disclosure is being madepursuant to the Care Everywhere program and may not contain all information available regarding this patient. Last updated 18.[facility] [employer] Allergies No known active allergies Medications * Be aware that medications may not be up to date on this document. Alwaysverify current medications with the patient. * esomeprazole (NexIUM) 20 MG capsule(Started 2022) Take 1 (one) capsule by mouth daily before breakfast 1 refill by 2023 * ondansetron, disintegrating, (Zofran ODT) 4 MG tablet(Started 2022) Take 1 (one) tablet by mouth every 6 hours as needed for Nausea/Vomiting Allow tablet to dissolve on the tongue Social History Tobacco Use Types Packs/Day Years Used Date Smoking Tobacco: Never Smokeless Tobacco: Never Tobacco Cessation:Counseling Given: Not Answered Alcohol Use Standard Drinks/Week Comments Never 0 (1 standard drink = 0.6 oz pur e alcohol) Sex and Gender Information Value Date Recorded Sex Assigned at Not on file Gender Identity Not on file Sexual Orientation Not on file Last Filed Vital Signs Vital Sign Reading Time Taken Comments Blood Pressure 120/90 2022 12:50 PM WAITER/WAITRESS COUNTER Pulse 70 2022 12:50 PM WAITER/WAITRESS COUNTER Temperature 37.1 ??C (98.7 ??F) 2022 12:50 PM C Respiratory Rate 18 2022 12:50 PM WAITER/WAITRESS COUNTER Oxygen Saturation 98% 2022 12:50 PM WAITER/WAITRESS COUNTER Inhaled Oxygen Concentration - - Weight 44.7 kg (98 lb 8.7 oz) 2022 8:53 AM WAITER/WAITRESS COUNTER Height 175 cm (5' 8.9 ) 2022 8:53 AM WAITER/WAITRESS COUNTER Body Mass Index 14.6 2022 8:53 AM WAITER/WAITRESS COUNTER Procedures * HCG URINE QUALITATIVE - POCT (IP) INTERFACED(Performed 2022) * LIPASE BLOOD(Performed 2022) * URINE DRUG SCREEN IMMUNOASSAY(Performed 2022) * COMPREHENSIVE METABOLIC PANEL(Performed 2022) * HCG URINE QUAL POCT NOTIFICATION(Performed 2022) Results * HCG URINE QUALITATIVE - POCT (IP) INTERFACED (2022 10:21 AM [facility]) Pathologist [facility] HCG Qual Urine Negative Negative 2022 10:[address] [facility] Urine URINE / Unknown 2022 1 0:21 AM WAITER/WAITRESS COUNTER 2022 10:32 AM [facility] Bennett Mcrae MD LAB - POINT OF CARE ORDERABLES Performing Organization Address City/State/[facility] Co de Phone Number [facility] [address] [place], [place] [id number] * (ABNORMAL) COMPREHENSIVE METABOLIC PANEL (2022 10:18 AM [facility]) [facility] BUN 10 5 - 19 mg/dL 2022 10:53 AM [facility] Creatinine 0.79 0.56 - 0.96 mg/dL 2022 10:53 AM [facility] Sodium 141 136 - 145 mmol/L 2022 10:53 AM [facility] LABORATORY [facility] Potassium 4.0 3.5 - 5.1 mmol/L 2022 10:53 AM [facility] Chloride 107 98 - 107 mmol/L 2022 10:53 AM [facility] CO2 25 20 - 28 mmol/L 2022 10:53 AM [facility] Glucose 107 70 - 115 mg/dL 2022 10:53 AM [facility] Calcium 10.1 8.4 - 10.2 mg/dL 2022 10:53 AM [facility] Protein Total 7.6 6.0 - 8.3 g/dL 2022 10:53 AM [facility] Albumin 4.4 3.4 - 5.0 g/dL 2022 10:53 AM [facility] Bilirubin Total 1.1 0.3 - 1.2 mg/dL 2022 10:53 AM [facility] Alkaline Phosphatase 56(L) 100 - 390 U/L 2022 10:53 AM [facility] ALT 10 5 - 55 U/L 2022 10:53 AM [facility] AST 21 3 - 35 U/L 2022 10:53 AM [facility] Anion Gap 13 8 - 18 2022 10:53 AM [facility] BUN/Creatinine Ratio 13 7 - 23 2022 10:53 AM [facility] Osmolality Calculated 292 270 - 300 mOsm/kg 2022 10:53 AM [facility] Blood BLOOD SPECIMEN / Unknown Venipuncture / Unknown 2022 10:18 AM [facility] 2022 10:27 AM [facility] Bennett Mcrae MD LAB - CHEMISTRY GEOVANNA GODINEZ [facility] Organization Address City/State/ZIP Co de Phone Number [facility] [address] [place] [phone] [phone] * (ABNORMAL) URINE DRUG SCREEN IMMUNOASSAY (2022 10:18 AM [facility]) [facility] Amphetamines Screen Urine Negative Negative : < 1000 ng/mL 2022 10:46 AM [facility] Barbiturates Screen Urine Negative Negative : < 200 ng/mL 2022 10:46 AM [facility] Benzodiazepine Screen Urine Negative Negative : < 200 ng/mL 2022 10:46 AM [facility] Opiates Urine Negative Negative : < 300 ng/mL 2022 10:46 AM [facility] Cocaine Metabolites Urine Negative Negative : < 300 ng/mL 2022 10:46 AM [facility] Phencyclidine Screen Urine Negative Negative : < 25 ng/ml 2022 10:46 AM [facility] Cannabinoids Screen Urine Positive(A) Negative : <50 ng/mL 2022 10:46 AM [facility] Comment:Positive urine canna binoids (THC) screening results should be confirmed by another generally accepted non-immunological method such as gas chromatography or mass spectrometry. Methadone Screen Urine Negative Negative : < 300 ng/mL 2022 10:46 AM [facility] Fentanyl Screen Urine Negative Negative : <1.5 ng/mL 2022 10:46 AM [facility] Urine URINE / Unknown Collection / Unknown 2022 10:18 AM [facility] 2022 10:23 AM [facility] [address] - 2022 10:46 AM [facility] The Urine Toxicology Screening Panel does not screen for Propoxyphene, Meprobamate, Carisoprodol, Trazodone, waru-rdu-eeofaox medications and/or volatiles (Acetone, Isopropanol, Methanol or Ethylene Glycol). Ethanol, Salicylate, Acetaminophen, Tricyclic Antidepressants and several therapeutic drugs may be individually assayed in serum or plasma specimen. Toxicology testing by the [facility] is an aid to medical diagnosis and treatment of patients. No documented chain of custody was maintained. Results are intended to be used for clinical purposes only. ? Bennett Mcrae MD LAB - URINE CHEMISTR Y ORDERABLES Performing Organization Address [facility] Co de Phone Number [facility] [address] [place] [address], [place] [phone] * LIPASE BLOOD (2022 10:18 AM WAITER/WAITRESS COUNTER) Lipase 31 8 - 78 U/L 2022 10:54 AM WAITER/WAITRESS COUNTER [facility] Blood BLOOD SPECIMEN / Unknown Venipuncture / Unknown 2022 10:18 AM WAITER/WAITRESS COUNTER 2022 10:27 AM WAITER/WAITRESS COUNTER Narrative [facility] - 2022 10:54 AM WAITER/WAITRESS COUNTER Lipase results from the [employer] Al[employer] analyzer may not be comparable with other methodologies. Bennett Mcrae MD LAB - CHEMISTRY ORDE RABLES Performing Organization Address [facility] Co de Phone Number [facility] [address] [place] [address], [place] [phone] * HCG URINE QUAL POCT NOTIFICATION (2022 9:38 AM WAITER/WAITRESS COUNTER) Comment Notification Label Only - See Separate Report 2022 11:30 AM WAITER/WAITRESS COUNTER [facility] Urine URINE / Unknown 2022 9 :38 AM WAITER/WAITRESS COUNTER 2022 10:20 AM WAITER/WAITRESS COUNTER Bennett Mcrae MD LAB - URINALYSIS ORD ERABLES Performing Organization Address [facility]/[place] [facility] Co de Phone Number [facility] [place] [address] Care Teams Rouge Sifter Relationship Specialty Start Date End Date Rita Lynn MD [address] [place] [phone] PCP - General Pediatrics 09/13/19
--- OUTSIDE RECORDS SUMMARY | 2024-07-02 06:52 | XMS_ITS | Encounter Summary ---
Author Organization [facility] Address [address] [place] [address]. [place], [place] [id number] [place] [address] Care Team Providers Care Credit Correspondence Clerk Name Role Phone Unavailable Primary Care Provider Unavailabl e Encounter Details Date Type Department Care Team (Late st Contact Info) Description [address] [facility] [place] [address] , Carey Alaniz MD Social History Tobacco Use Types Packs/Day Years Used Date Smoking Tobacco: Never Assessed Comments Unknown Sex and Gender Information Value Date Recorded Sex Assigned at Not on file Legal Sex Female 4:21 PM CDT Gender Identity Not on file Sexual Orientation Not on file documented as of this encounter Plan of Treatment Not on file documented as of this encounter Visit Diagnoses Not on filedocumented in this encounter
--- OUTSIDE RECORDS SUMMARY | 2024-07-02 06:52 | XMS_ITS | Clinical Summary ---
Author Organization [facility] Address [address] [place] [address] Care Team Providers Care Stitch Marker Name Role Phone Rita Lynn MD Primary Care Provider [phone] [facility],non-owned Affiliates and Associated Physician Practices is amultiple site organization consisting of ambulatory clinics and hospital sitesin [place], [place], [place] and [place]. This disclosure is being madepursuant to the Care Everywhere program and may not contain all information available regarding this patient. Last updated 18.[facility] Allergies No known active allergies Medications * Be aware that medications may not be up to date on this document. Alwaysverify current medications with the patient. Medication Sig Dispensed Refills Start Date End Date Status esomeprazole (NexIUM) 20 MG capsule Take 1 (one) capsule by mouth daily before breakfast 30 capsule 1 2022 Active ondansetron, disintegrating, (Zofran ODT) 4 MG tablet Take 1 (one) tablet by mouth every 6 hours as needed for Nausea/Vomiting Allow tablet to dissolve on the tongue 10 tablet 2022 Active Social History Tobacco Use Types Packs/Day Years [...] Comments Blood Pressure 120/90 2022 12:50 PM DURALUMIN MECHANIC Pulse 70 2022 12:50 PM DURALUMIN MECHANIC Temperature 37.1 ??C (98.7 ??F) 2022 12:[address] Respiratory Rate 18 2022 12:50 PM DURALUMIN MECHANIC Oxygen Saturation 98% 2022 12:50 PM DURALUMIN MECHANIC Inhaled Oxygen Concentration - - Weight 44.7 kg (98 lb 8.7 oz) 2022 8:53 AM DURALUMIN MECHANIC Height 175 cm (5' 8.9 ) 2022 8:53 AM DURALUMIN MECHANIC Body Mass Index 14.6 2022 8:53 AM DURALUMIN MECHANIC Plan of Treatment Health Maintenance Due Date Last Done Comments HIV SCREENING 2019 HPV VACCINE (1 - 3-dose series) 2019 CHLAMYDIA/GONORRHEA SCREENING 2020 HEPATITIS C SCREENING 06/22/2022 DTAP/TDAP/TD VACCINES (1 - Tdap) 2023 HEPATITIS B VACCINE (1 of 3 - 19+ 3-dose series) 2023 COVID-19 VACCINE (3 - season) 2024 05/25/2021, 12/11/2020 INFLUENZA VACCINE (#1) 2024 2, 05/25/2021, 03/22/2018, Additional history exists DEPRESSION SCREENING 06/20/2024 ZOSTER VACCINE (1 of 2) 2054 HIB VACCINE Aged Out No longer eligi ble based on patient's age to complete this topic MENINGOCOCCAL VACCINE Aged Out No jeb aggie eligible based on patient's age to complete this topic PNEUMOCOCCAL VACCINE Aged Out No long er eligible based on patient's age to complete this topic Care Teams Stitch Marker Relationship Specialty Start Date End Date Rita Lynn MD [address] [place] [address] PCP - General Pediatrics 09/13/19
--- OUTSIDE RECORDS SUMMARY | 2024-07-02 06:52 | XMS_ITS | Encounter Summary ---
Author Organization [facility] Address [address] [place] [address] Care Team Providers Care Service Center Technician Name Role Phone Rita Lynn MD Primary Care Provider [phone] Encounter Details Date Type Department Care Team (Latest Contact Info) Description 11/15/2019 Travel Social History Tobacco Use Types Packs/Day [...] have Coronavirus / COVID-19? No / Unsure 11/15/2019 3:11 PM CDT documented as of this encounter Plan of Treatment Not on file documented as of this encounter Visit Diagnoses Not on filedocumented in this encounter Care Teams Service Center Technician Relationship Specialty Start Date End Date Rita Lynn MD [address] [place] [phone] PCP - General Pediatrics 09/13/19 documented as of this encounter
--- OUTSIDE RECORDS SUMMARY | 2024-07-02 06:52 | XMS_ITS | Encounter Summary ---
Author Organization [facility] Address [address] [address] Care Team Providers Care Eyewear Manufacturing Supervisor Name Role Phone Rita Lynn MD Primary Care Provider [phone] Reason for Visit * Reason Comments Vomiting Per grandmother- Pat ient has been sick with vomiting since 06/15, unable to keep fluids down. No diarrhea. No know fevers at home. 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 States her whole body hurts, mostly when she vomits. Encounter Details Date Type Department Care Team (Late st Contact Info) Description 2022 8:58 AM CATTLE TRADER - 2022 1:19 PM CATTLE TRADER Emergency ER at [address] [address] Bennett Mcrae MD [address] [place] [phone] Gastroenteritis; Nausea and vomiting, unspecified vomiting type Discharge Disposition: Home or Self Care Social History Tobacco Use Types Packs/Day Years [...] Comments Blood Pressure 120/90 2022 12:50 PM CATTLE TRADER Pulse 70 2022 12:50 PM CATTLE TRADER Temperature 37.1 ??C (98.7 ??F) 2022 1 2:50 PM CATTLE TRADER Respiratory Rate 18 2022 12:5 0 PM CATTLE TRADER Oxygen Saturation 98% 2022 12: 50 PM CATTLE TRADER Inhaled Oxygen Concentration - - Weight 44.7 kg (98 lb 8.7 oz) 2022 8:53 AM CATTLE TRADER Height 175 cm (5' 8.9 ) 2022 8:53 AM CATTLE TRADER Body Mass Index 14.6 2022 8:53 AM CATTLE TRADER Body Mass Index Percentile 0.00% 2022 8:5 3 AM CATTLE TRADER Growth Chart: [facility] (Girls, 2- 20 Years) documented in this encounter Discharge Instructions * Discharge Instructions* Xuan Goss MD - 2022 1:04 PM CATTLE TRADER - take Zofran every 6 hours as needed for nausea and vomiting - start taking Nexium 20mg once a day - continue to make sure that you are taking in a good amount of liquids (recommended 2 liters per day) and maintaining your hydration Call your primary healthcare provider or return to the ED for any of the following: - Bloody or black vomit or stools - Severe, steady belly pain - Vomiting with a severe headache or stiff neck - Can't sip liquids after more than 12 hours - Vomiting that lasts more than 24 hours - Severe diarrhea that lasts more than 2 days - Yellowish color to your skin or the whites of your eyes - Can't urinate LE TRADER documented in this encounter Medications at Time of Discharge Medication Sig Dispensed Refills Start Date End Date esomeprazole (NexIUM) 20 MG capsule Take 1 (one) capsule by mouth daily before breakfast 30 capsule 1 2022 ondansetron, disintegrating, (Zofran ODT) 4 MG tablet Take 1 (one) tablet by mouth every 6 hours as needed for Nausea/Vomiting Allow tablet to dissolve on the tongue 10 tablet 2022 documented as of this encounter ED Notes * Ana Whitaker RN - 2022 1:18 PM CST Discharge instructions reviewed at bedside with family member. Education provided regarding recommended dosing and administration of prescribed medication(s). Reviewed reasons to seek follow-up care and reasons to return to ED. Opportunity for questions provided and family member verbalized understa nding of discharge plan. Patient awake and alert, tolerating PO at time of discharge. NAD observed. LE TRADER * Xuan Goss MD - 2022 9:12 AM CST [id number] ED Encounter Note A [id number]-[id number] working with a supervising attending writes the following note. As such, the note will be abbreviated specifying obando portions of the ED encounter. A more complete note of the ED encounter from the supervising attending physician can be found in the medical record. HISTORY Provider contact with the patient: 2022 Lorrainecary Pacheco [id number] Chief Complaint Patient presents with ??? Vomiting Per grandmother- Patient has been sick with vomiting since 06/15, unable to keep fluids down. No diarrhea. No know fevers at home. 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 States her whole body hurts, mostly when she vomits. The chief complaint narrative was entered by a triage nurse, not by physician. HPI I have discussed the HPI documented in the supervisory provider's note, unless otherwise stated below. REVIEW OF SYSTEMS I have discussed the ROS documented in supervisory provider's note, unless otherwise stated below. PHYSICAL EXAM I have discussed the PE documented in supervisory provider's note. Pertinent physical exam findingsstated below. Physical Exam Constitutional: General: She is not in acute distress. Appearance: Normal appearance. She is normal weight. She is not ill-appearing. HENT: Head: Normocephalic and atraumatic. Right Ear: External ear normal. Left Ear: External ear normal. Nose: Rhinorrhea present. Mouth/Throat: Mouth: Mucous membranes are moist. Comments: Dry, cracked lips Eyes: Extraocular Movements: Extraocular movements intact. Conjunctiva/sclera: Conjunctivae normal. Cardiovascular: Rate and Rhythm: Normal rate and regular rhythm. Pulses: Normal pulses. Heart sounds: Normal heart sounds. No murmur heard. Pulmonary: Effort: Pulmonary effort is normal. No respiratory distress. Breath sounds: Normal breath sounds. Abdominal: General: Abdomen is flat. Bowel sounds are normal. There is no distension. Palpations: Abdomen is soft. Tenderness: There is abdominal tenderness (generalized). Musculoskeletal: General: Normal range of motion. Cervical back: Normal range of motion and neck supple. No rigidity. Skin: General: Skin is warm and dry. Capillary Refill: Capillary refill takes less than 2 seconds. Neurological: General: No focal deficit present. Mental Status: She is alert and oriented to person, place, and time. Cranial Nerves: No cranial nerve deficit. Sensory: Sensation is intact. No sensory deficit. Motor: Motor function is intact. No weakness. Coordination: Coordination is intact. Coordination normal. Psychiatric: Mood and Affect: Mood normal. Behavior: Behavior normal. PE: BP 120/90 Pulse 70 Temp 98.7 ??F (37.1 ??C) (Oral) Resp 18 Ht 1.75 m (5' 8.9 ) Wt 44.7 kg(98 lb 8.7 oz) SpO2 98% PROCEDURE Procedures LABS/ORDERS Orders Placed This Encounter ??? COMPREHENSIVE METABOLIC PANEL ??? HCG URINE QUAL POCT NOTIFICATION ??? URINE DRUG SCREEN IMMUNOASSAY ??? LIPASE BLOOD ??? ondansetron (disintegrating) (Zofran ODT) tablet 8 mg ??? lidocaine buffered 1-8.4 % injection 0.2 mL ??? lactated ringers IV BOLUS 1,000 mL ??? esomeprazole (NexIUM) injection 20 mg ??? esomeprazole (NexIUM) 20 MG capsule ??? ondansetron, disintegrating, (Zofran ODT) 4 MG tablet No orders to display Hospital Encounter on 06/26/22 COMPREHENSIVE METABOLIC PANEL Result Value Ref Range BUN 10 5 - 19 mg/dL Creatinine 0.79 0.56 - 0.96 mg/dL Sodium 141 136 - 145 mmol/L Potassium 4.0 3.5 - 5.1 mmol/L Chloride 107 98 - 107 mmol/L CO2 25 20 - 28 mmol/L Glucose 107 70 - 115 mg/dL Calcium 10.1 8.4 - 10.2 mg/dL Protein Total 7.6 6.0 - 8.3 g/dL Albumin 4.4 3.4 - 5.0 g/dL Bilirubin Total 1.1 0.3 - 1.2 mg/dL Alkaline Phosphatase 56 (L) 100 - 390 U/L ALT 10 5 - 55 U/L AST 21 3 - 35 U/L Anion Gap 13 8 - 18 BUN/Creatinine Ratio 13 7 - 23 Osmolality Calculated 292 270 - 300 mOsm/kg HCG URINE QUAL POCT NOTIFICATION Result Value Ref Range Comment Notification Label Only - See Separate Report URINE DRUG SCREEN IMMUNOASSAY Result Value Ref Range Amphetamines Screen Urine Negative Negative: < 1000 ng/mL Barbiturates Screen Urine Negative Negative: < 200 ng/mL Benzodiazepine Screen Urine Negative Negative: < 200 ng/mL Opiates Urine Negative Negative: < 300 ng/mL Cocaine Metabolites Urine Negative Negative: < 300 ng/mL Phencyclidine Screen Urine Negative Negative: < 25 ng/ml Cannabinoids Screen Urine Positive (Abnormal) Negative: <50 ng/mL Methadone Screen Urine Negative Negative: < 300 ng/mL Fentanyl Screen Urine Negative Negative: <1.5 ng/mL LIPASE BLOOD Result Value Ref Range Lipase 31 8 - 78 U/L HCG URINE QUALITATIVE - POCT (IP) INTERFACED Result Value Ref Range HCG Qual Urine Negative Negative ED COURSE Lorraine Pacheco is a 17 year old female presenting with: - 11 days of NBNB vomiting with associated fever (yesterday), abdominal pain, congestion and rhinorrhea - denies similar episodes in the past - daily marijuana use prior to this starting; last smoked yesterday - sexually active, but not for a while - denies constipation, diarrhea Differential Diagnoses: - viral gastroenteritis - cannabinoid hyperemesis syndrome - /hyperemesis gravidarum Clinical Impressions as of 06/26/22 1308 Gastroenteritis Nausea and vomiting, unspecified vomiting type ED Management: 0900 given Zofran on presentation 0930 saw patient; moderately uncomfortable 2/3 nausea; had an episode of emesis during exam; will give LR bolus and obtain CMP, HCG, Utox, lipase 1100 gave Nexium 20mg; CMP, HCG, lipase WNL; Bicarb 25; Utox positive fore cannabinoids; will re-access after bolus 1300 pt states that she is feeling better with only mild nausea; d/c home with zofran and nexium; provided guidance about marijuana use and advised to stop 2/2 concerns for cannabis hyperemesis syndrome - take Zofran every 6 hours as needed for nausea and vomiting - start taking Nexium 20mg once a day - continue to make sure that you are taking in a good amount of liquids (recommended 2 liters per day) and maintaining your hydration Call your primary healthcare provider or return to the ED for any of the following: - Bloody or black vomit or stools - Severe, steady belly pain - Vomiting with a severe headache or stiff neck - Can't sip liquids after more than 12 hours - Vomiting that lasts more than 24 hours - Severe diarrhea that lasts more than 2 days - Yellowish color to your skin or the whites of your eyes - Can't urinate Medical Decision Making CLINICAL IMPRESSIONS AND DISPOSITION Final Diagnosis: Final diagnoses: Gastroenteritis Nausea and vomiting, unspecified vomiting type Disposition: D/c home; stable LE TRADER * Bennett Mcrae MD - 2022 9:07 AM CST Provider contact with the patient: 2022 9:07 AM [facility] Lorraine Pacheco [id number] History Chief Complaint Patient presents with ??? Vomiting Per grandmother- Patient has been sick with vomiting since 06/15, unable to keep fluids down. No diarrhea. No know fevers at home. 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 States her whole body hurts, mostly when she vomits. Chief complaint narrative was entered by triage nurse, not by physician. I have read the resident/medical student/MYSQL DATABASE DEVELOPER history. Unless appended by me below, I agree with findings as documented. HPI History provided per: Grandmother, Patient Lorraine Pacheco is a 17 year old female with no significant past medical history who presents to ED forevaluation of NBNB vomiting that began 11 days ago. Per pt's grandmother, pt has been unable to keep anything down. Pt was seen at OSH on the 06/16 and was given Zofran. She has since run out of Zofran with symptoms not subsiding. Pt admits to smoking marijuana daily at work. She is sexually active. Associated symptoms include abdominal pain. Denies diarrhea or fevers. No other recent injuries orillnesses. All immunizations are up-to-date. No Known Allergies No past medical history on file. Social History Socioeconomic History ??? Marital status: Single Spouse name: Not on file ??? Number of children: Not on file ??? Years of education: Not on file ??? Highest education level: Not on file Occupational History ??? Not on file Tobacco Use ??? Smoking status: Never ??? Smokeless tobacco: Never Vaping Use ??? Vaping Use: Never used Substance and Sexual Activity ??? Alcohol use: Never ??? Drug use: Yes ??? Sexual activity: Not on file Other Topics Concern ??? Not on file Social History Narrative ??? Not on file Social Determinants of Health Financial Resource Strain: Not on file Food Insecurity: Not on file Transportation Needs: Not on file Physical Activity: Not on file Stress: Not on file Social Connections: Not on file Intimate Partner Violence: Not on file Housing Stability: Not on file No family history on file. Discharge Medication List as of 2022 1:12 PM START taking these medications Details esomeprazole (NexIUM) 20 MG capsule Disp-30 capsule, R-1, Take 1 (one) capsule by mouth daily before breakfast, ePrescribe ondansetron, disintegrating, (Zofran ODT) 4 MG tablet Disp-10 tablet, R-0, Take 1 (one) tablet by mouth every 6 hours as needed for Nausea/Vomiting Allow tablet to dissolve on the tongue, ePrescribe Review of Systems All relevant systems reviewed and all negative except as noted in resident/medical student/MYSQL DATABASE DEVELOPER and attending HPI/ROS. Constitutional: No activity change, appetite change or fever HENT: No congestion or rhinorrhea Respiratory: No cough or wheezing Cardiovascular: Negative GI: No diarrhea +vomiting +abdominal pain : No decreased urine output MS: Negative Neuro: Negative Skin: No rash or wounds All other systems negative except as noted above. Physical Exam I have reviewed the resident/medical student/MYSQL DATABASE DEVELOPER physical exam. Unless appended by me below, I agreewith the PE as documented. Vitals: 06/26/22 0853 06/26/22 1250 BP: 92/60 120/90 Pulse: 102 70 Resp: 24 18 Temp: 98.6 ??F (37 ??C) 98.7 ??F (37.1 ??C) SpO2: 98% 98% Weight: 44.7 kg (98 lb 8.7 oz) Height: 1.75 m (5' 8.9 ) Constitutional: Pt appears well-developed and well-nourished; in no acute distress Head: Normocephalic; atraumatic. Eyes: Conjunctivae are normal. ENT: Mucous membranes moist. Neck: Supple. Normal ROM. Cardiovascular: Regular rate and rhythm. S1 and S2 normal. No murmurs, rubs or gallops. Pulmonary: Normal respiratory effort. Breath sounds clear and equal bilaterally; no wheezing, rales, or rhonchi. Abdominal: Soft. No distension. Flat. Generalized tenderness. No guarding or rebound. Extremities: Full ROM. Neurological: Pt is alert and interactive. Skin: No rash or lesions. Nursing notes and vitals reviewed. Procedures Procedures Labs/Orders Orders Placed This Encounter ??? COMPREHENSIVE METABOLIC PANEL ??? HCG URINE QUAL POCT NOTIFICATION ??? URINE DRUG SCREEN IMMUNOASSAY ??? LIPASE BLOOD ??? ondansetron (disintegrating) (Zofran ODT) tablet 8 mg ??? lidocaine buffered 1-8.4 % injection 0.2 mL ??? lactated ringers IV BOLUS 1,000 mL ??? esomeprazole (NexIUM) injection 20 mg ??? esomeprazole (NexIUM) 20 MG capsule ??? ondansetron, disintegrating, (Zofran ODT) 4 MG tablet No orders to display Hospital Encounter on 06/26/22 COMPREHENSIVE METABOLIC PANEL Result Value Ref Range BUN 10 5 - 19 mg/dL Creatinine 0.79 0.56 - 0.96 mg/dL Sodium 141 136 - 145 mmol/L Potassium 4.0 3.5 - 5.1 mmol/L Chloride 107 98 - 107 mmol/L CO2 25 20 - 28 mmol/L Glucose 107 70 - 115 mg/dL Calcium 10.1 8.4 - 10.2 mg/dL Protein Total 7.6 6.0 - 8.3 g/dL Albumin 4.4 3.4 - 5.0 g/dL Bilirubin Total 1.1 0.3 - 1.2 mg/dL Alkaline Phosphatase 56 (L) 100 - 390 U/L ALT 10 5 - 55 U/L AST 21 3 - 35 U/L Anion Gap 13 8 - 18 BUN/Creatinine Ratio 13 7 - 23 Osmolality Calculated 292 270 - 300 mOsm/kg HCG URINE QUAL POCT NOTIFICATION Result Value Ref Range Comment Notification Label Only - See Separate Report URINE DRUG SCREEN IMMUNOASSAY Result Value Ref Range Amphetamines Screen Urine Negative Negative: < 1000 ng/mL Barbiturates Screen Urine Negative Negative: < 200 ng/mL Benzodiazepine Screen Urine Negative Negative: < 200 ng/mL Opiates Urine Negative Negative: < 300 ng/mL Cocaine Metabolites Urine Negative Negative: < 300 ng/mL Phencyclidine Screen Urine Negative Negative: < 25 ng/ml Cannabinoids Screen Urine Positive (Abnormal) Negative: <50 ng/mL Methadone Screen Urine Negative Negative: < 300 ng/mL Fentanyl Screen Urine Negative Negative: <1.5 ng/mL LIPASE BLOOD Result Value Ref Range Lipase 31 8 - 78 U/L HCG URINE QUALITATIVE - POCT (IP) INTERFACED Result Value Ref Range HCG Qual Urine Negative Negative ED Course Initial Assessment & Plan: Lorraine Pacheco is an 17 year old female who presents to the ED with intermittent vomiting and abdominal pain for 10 days. Exam not consistent with SBI or surgical condition. Will obtain appropriate labs and administer Zofran and IV fluids. 12:57 PM Pt is feeling better after IVF's, IV Zofran and Nexium. Will discharge with Zofran and Nexium. 12:57 PM The patient remains stable at the time of discharge. My/Our clinical impression was discussed and results were reviewed. The patient/guardian was given the opportunity to ask questions, and I/we addressed them as completely as possible given the information available at present. The therapeutic plan was discussed, instructions were given and the importance of primary care follow up was stressed and encouraged. The patient/guardian voiced understanding of the plan, indications to return, and theneed for follow up. Medical Decision Making Medical Decision Making I have reviewed the: Previous Chart, Nursing Notes, Vitals. I have interpreted the following results: Labs, Oxygen Saturation. I have discussed the case with Family/Caregiver. The total time providing critical care (excluding time spent for procedures) was: 0 minutes. Clinical Impression and Disposition Final Diagnosis: Final diagnoses: Gastroenteritis Nausea and vomiting, unspecified vomiting type New Medications: Discharge Medication List as of 2022 1:12 PM START taking these medications Details esomeprazole (NexIUM) 20 MG capsule Disp-30 capsule, R-1, Take 1 (one) capsule by mouth daily before breakfast, ePrescribe ondansetron, disintegrating, (Zofran ODT) 4 MG tablet Disp-10 tablet, R-0, Take 1 (one) tablet by mouth every 6 hours as needed for Nausea/Vomiting Allow tablet to dissolve on the tongue, ePrescribe I have advised the patient to follow-up with: Rita Lynn MD [address] [place] [phone] As needed, If symptoms worsen Disposition: Discharged 2022 12:57 PM Scribe Attestation By signing my name below, I, Leah Grewal, attest that this documentation has been prepared under the direction and in the presence of Dr. Mcrae. Electronically Signed: Leah Grewal 2022 9:07 AM Provider Attestation I, Dr. Mcrae, personally performed the services described in this documentation. All medical recordentries made by the scribe were at my direction and in my presence. I have reviewed the chart and agree that the record reflects my personal performance and is accurate and complete. I have fully participated in the care of this patient. I have reviewed all pertinent clinical information available to me during this encounter, including history, physical exam and plan. I have reviewed nursing notes, vital signs, available labs and radiographic studies. With respect to physicians in training and mid-level providers, I, Dr. Mcrae, agree with the assessment and plan except if revised in my note. LE TRADER documented in this encounter Plan of Treatment Not on file documented as of this encounter Procedures Procedure Name Priority Date/Time Associated Diagnosis Comments HCG URINE QUALITATIVE - POCT (IP) INTERFACED Routine 2022 10:21 AM CATTLE TRADER COMPREHENSIVE METABOLIC PANEL STAT 2022 10:18 AM CATTLE TRADER URINE DRUG SCREEN IMMUNOASSAY STAT 2022 10:18 AM CATTLE TRADER LIPASE BLOOD STAT 2022 10:18 AM CATTLE TRADER HCG URINE QUAL POCT NOTIFICATION STAT 2022 9:38 AM CATTLE TRADER documented in this encounter Results * HCG URINE QUALITATIVE - POCT (IP) INTERFACED (2022 10:21 AM CATTLE TRADER) HCG Qual Urine Negative Negative 2022 10:32 AM CATTLE TRADER [facility] Urine URINE / Unknown 2022 1 0:21 AM CATTLE TRADER 2022 10:32 AM CATTLE TRADER Bennett Mcrae MD LAB - POINT OF CARE ORDERABLES [facility] [address] [place] [address] * LIPASE BLOOD (2022 10:18 AM [facility]) Lipase 31 8 - 78 U/L 2022 10:54 AM [facility] Blood BLOOD SPECIMEN / Unknown Venipuncture / Unknown 2022 10:18 AM CATTLE TRADER 2022 10:27 AM CATTLE TRADER Narrative [facility] - 2022 10:54 AM [facility] Lipase results from the [employer] Alinity analyzer may not be comparable with other methodologies. Bennett Mcrae MD LAB - CHEMISTRY [place]DE [place] Performing Organization Address City/[facility]/ZIP Co de Phone Number [facility] [address] [place] [address], [facility] [phone] * (ABNORMAL) URINE DRUG SCREEN IMMUNOASSAY (2022 10:18 AM [facility]) Pathologist [facility] Amphetamines Screen Urine Negative Negative : < 1000 ng/mL 2022 10:46 AM [facility] Barbiturates Screen Urine Negative Negative : < 200 ng/mL 2022 10:46 AM [facility] Benzodiazepine Screen Urine Negative Negative : < 200 ng/mL 2022 10:46 AM [facility] Opiates Urine Negative Negative : < 300 ng/mL 2022 10:46 AM [facility] Cocaine Metabolites Urine Negative Negative : < 300 ng/mL 2022 10:46 AM [facility] Phencyclidine Screen Urine Negative Negative : < 25 ng/ml 2022 10:46 AM [facility] Cannabinoids Screen Urine Positive(A) Negative : <50 ng/mL 2022 10:46 AM [facility] Comment:Positive urine canna binoids (THC) screening results should be confirmed by another generally accepted non-immunological method such as gas chromatography or mass spectrometry. Methadone Screen Urine Negative Negative : < 300 ng/mL 2022 10:46 AM [facility] Fentanyl Screen Urine Negative Negative : <1.5 ng/mL 2022 10:46 AM [facility] Urine URINE / Unknown Collection / Unknown 2022 10:18 AM [facility] 2022 10:23 AM [facility] Narrative [facility] - 2022 10:46 AM [facility] The Urine Toxicology Screening Panel does not screen for Propoxyphene, Meprobamate, Carisoprodol, Trazodone, kkio-awa-jcaepzo medications and/or volatiles (Acetone, Isopropanol, Methanol or Ethylene Glycol). Ethanol, Salicylate, Acetaminophen, Tricyclic Antidepressants and several therapeutic drugs may be individually assayed in serum or plasma specimen. Toxicology testing by the [facility] is an aid to medical diagnosis and treatment of patients. No documented chain of custody was maintained. Results are intended to be used for clinical purposes only. ? Bennett Mcrae MD LAB - URINE CHEMISTR Y ORDERABLES Performing Organization Address [facility]/State/[facility] Co de Phone Number [facility] [address] [place] [address], [place] [phone] * (ABNORMAL) COMPREHENSIVE METABOLIC PANEL (2022 10:18 AM [facility]) BUN 10 5 - 19 mg/dL 2022 10:53 AM [facility] Creatinine 0.79 0.56 - 0.96 mg/dL 2022 10:53 AM [facility] Sodium 141 136 - 145 mmol/L 2022 10:53 AM [facility] Potassium 4.0 3.5 - 5.1 mmol/L 2022 10:53 AM [facility] Chloride 107 98 - 107 mmol/L 2022 10:53 AM [facility] CO2 25 20 - 28 mmol/L 2022 10:53 AM [facility] Glucose 107 70 - 115 mg/dL 2022 10:53 AM [facility] Calcium 10.1 8.4 - 10.2 mg/dL 2022 10:53 AM [facility] Protein Total 7.6 6.0 - 8.3 g/dL 2022 10:53 AM [facility] Albumin 4.4 3.4 - 5.0 g/dL 2022 10:53 AM [facility] Bilirubin Total 1.1 0.3 - 1.2 mg/dL 2022 10:53 AM [facility] Alkaline Phosphatase 56(L) 100 - 390 U/L 2022 10:53 AM [facility] ALT 10 5 - 55 U/L 2022 10:53 AM [facility] AST 21 3 - 35 U/L 2022 10:53 AM [facility] Anion Gap 13 8 - 18 2022 10:53 AM [facility] BUN/Creatinine Ratio 13 7 - 23 2022 10:53 AM [facility] Osmolality Calculated 292 270 - 300 mOsm/kg 2022 10:53 AM [facility] Blood BLOOD SPECIMEN / Unknown Venipuncture / Unknown 2022 10:18 AM CATTLE TRADER 2022 10:27 AM [facility] Bennett Mcrae MD LAB - CHEMISTRY ORDE [place] [facility] [address] [place] [address], [facility] [phone] * HCG URINE QUAL POCT NOTIFICATION (2022 9:38 AM CATTLE TRADER) Comment Notification Label Only - See Separate Report 2022 11:30 AM CATTLE TRADER [facility] Urine URINE / Unknown 2022 9 :38 AM CATTLE TRADER 2022 10:20 AM CATTLE TRADER Bennett Mcrae MD LAB - URINALYSIS ORD ERABLES Performing Organization Address City/[facility]/ZIP Co de Phone Number [facility] [address] [place] [address] documented in this encounter Visit Diagnoses Diagnosis Gastroenteritis Other and unspecified noninfectious gastroenteritis and colitis Nausea and vomiting, unspecified vomiting type documented in this encounter Administered Medications Inactive Administered Medications - up to 3 most recent administrations Medication Order MAR Action Action Date Dose Rate Site esomeprazole (NexIUM) injection 20 mg 20 mg, Intravenous, NOW, 1 dose, On 06/26/22 at 1130, RX diluted in NS. $ Given 2022 12:14 PM CATTLE TRADER 20 mg lactated ringers IV BOLUS 1,000 mL 1,000 mL, Intravenous, ONCE, 1 dose, On 06/26/22 at 1000 $ New Bag/Syringe 2022 10:28 AM CATTLE TRADER 1,000 mL ondansetron (disintegrating) (Zofran ODT) tablet 8 mg 8 mg, Oral, NOW, 1 dose, On 06/26/22 at 0900, Dissolved orally on tongue Dissolved orally on tongue $ Given 2022 8:53 AM CATTLE TRADER 8 mg Oral Mucosa documented in this encounter Active and Recently Administered Medications Times are shown in CATTLE TRADER. Scheduled Medication Order 06/24/2022 06/25/2022 2022 esomeprazole (NexIUM) injection 20 mg (COMPLETED) 20 mg, Intravenous, NOW, 1 dose, On 06/26/22 at 1130, RX diluted in NS. 1214 ($ Given - Prov ider: Palak Ballesteros RN) lactated ringers IV BOLUS 1,000 mL (COMPLETED) 1,000 mL, Intravenous, ONCE, 1 dose, On 06/26/22 at 1000 1028 ($ New Bag/Syri nge - Provider: Ana Whitaker RN)1130 (Stopped - Provider: Palak Ballesteros RN) ondansetron (disintegrating) (Zofran ODT) tablet 8 mg (COMPLETED) 8 mg, Oral, NOW, 1 dose, On 06/26/22 at 0900, Dissolved orally on tongue Dissolved orally on tongue 0853 ($ Given - Prov ider: Hoa Marvin RN) documented in this encounter Care Teams Eyewear Manufacturing Supervisor Relationship Specialty Start Date End Date Rita Lynn MD [address] [place] [phone] PCP - General Pediatrics 09/13/19 documented as of this encounter
--- OUTSIDE RECORDS SUMMARY | 2024-07-02 06:52 | XMS_ITS | Referral Summary ---
Author Organization [facility] Address [address] [place] [address] Care Team Providers Care Optical Instrument Repairer Name Role Phone Rita Lynn MD Primary Care Provider [phone] Source Comments [facility],non-owned Affiliates and Associated Physician Practices is amultiple site organization consisting of ambulatory clinics and hospital sitesin [place], [place], [place] and [place]. This disclosure is being madepursuant to the Care Everywhere program and may not contain all information available regarding this patient. Last updated 18.[facility] [employer] Allergies No known active allergies Medications * [...] Comments Blood Pressure 120/90 2022 12:50 PM DIE SINKING MACHINE OPERATOR Pulse 70 2022 12:50 PM DIE SINKING MACHINE OPERATOR Temperature 37.1 ??C (98.7 ??F) 2022 12:[address] Respiratory Rate 18 2022 12:50 PM DIE SINKING MACHINE OPERATOR Oxygen Saturation 98% 2022 12:50 PM DIE SINKING MACHINE OPERATOR Inhaled Oxygen Concentration - - Weight 44.7 kg (98 lb 8.7 oz) 2022 8:53 AM DIE SINKING MACHINE OPERATOR Height 175 cm (5' 8.9 ) 2022 8:53 AM DIE SINKING MACHINE OPERATOR Body Mass Index 14.6 2022 8:53 AM DIE SINKING MACHINE OPERATOR Plan of Treatment Not on file Care Teams Optical Instrument Repairer Relationship Specialty Start Date End Date Rita Lynn MD [address] [place] [phone] PCP - General Pediatrics 09/13/19
--- OUTSIDE RECORDS SUMMARY | 2024-07-02 06:53 | XMS_ITS | Clinical Summary ---
Author Organization [facility] Address [address] [place] [address] Care Team Providers Care Oracle Webcenter Consultant Name Role Phone Rita Lynn MD Primary Care Provider [phone] No, Physician Unavailable Allergies Active Allergy Reactions Criticality Noted Date Comments Prochlorperazine Dystonia High 07/05/2022 Also droperidol Medications metoclopramide (REGLAN) 10 mg tablet Take 1 tablet (10 mg total) by mouth every 6 (six) hours as needed (nausea, vomiting) 6 tablet 2 Active polyethylene glycol (MIRALAX) 17 gram packetIndicatio ns:constipation Take 1 packet (17 g total) by mouth daily 30 packet 3 Active acetaminophen 500 mg capsuleIndicati ons:Fever,Pain Take 2 capsules (1,000 mg total) by mouth every 6 (six) hours as needed (pain) 30 tablet [address] (PROTONIX) 40 mg EC tablet Take 1 tablet (40 mg total) by mouth daily 30 tablet 3 Active ergocalciferol (VITAMIN D) 50,000 unit capsule Take 1 capsule (50,000 Units total) by mouth once a week for 7 doses 4 capsule 1 3 Active famotidine (PEPCID) 20 mg tablet Take 20 mg by mouth 2 (two) times a day 3 Active medroxyPROGESTE Matthew 150 mg/mL injection Inject 150 mg into the muscle as instructed every 3 (three) months 2 Active Active Problems Problem Noted Date Diagnosed Date Abdominal pain 07/14/2022 Assessment & Plan (07/16/2022 1:22 PM TUNNEL HEADING INSPECTOR): Lorraine Pacheco is a 17 y/o previously healthy F with one month hx of abdominal pain and emesis with recent admission to [facility] 07/03-07/13 who presents with recurrence of sx. Extensive workup during her last admission was unremarkable. The only significant result was a (+) UDS for THC. Repeat labs in the ED were also unremarkable. Given pts persistent sx and lack of clear triggers ddx includes psychological causes such as FAD or cannabis hyperemesis syndrome given her significant THC usage hx and UDS. Will treat with Aprepitant. Had one episode of green emesis in AM on 07/15 c/f bilious emesis but obstruvice series was unremarkable. Currently endorsing pain/nausea but in stable condition. Often refusing PRNs but able to tolerate PO. Plan: - Reg diet + mIVF - Aprepitant 125mg first dose 80mg next two for 3 total days (07/15-07/17) - Prevacid 30mg daily - Miralax daily - Zofran, Benadryl prn - capsaicin cream - Scopolamine patches prn - Ramo Toradol + Tylenol prn [x] HEADSS exam not c/f needed intervention/workup S/p obstructive series 07/15; wnl [ ] Consider consult to Psychology Assessment & Plan (07/15/2022 4:44 PM TUNNEL HEADING INSPECTOR): Lorraine Pacheco is a 17 y/o previously healthy F with one month hx of abdominal pain and emesis with recent admission to [facility] 07/03-07/13 who presents with recurrence of sx. Extensive workup during her last admission was unremarkable. The only significant result was a (+) UDS for THC. Repeat labs in the ED were also unremarkable. Given pts persistent sx and lack of clear triggers ddx includes psychological causes such as FAD or cannabis hyperemesis syndrome given her significant THC usage hx and UDS. Will treat with Aprepitant. Had one episode of green emesis in AM on 07/15 c/f bilious emesis but obstruvice series was unremarkable. Currently endorsing pain/nausea but in stable condition. Often refusing PRNs. Plan: - Reg diet + mIVF - Aprepitant 125mg first dose 80mg next two for 3 total days (07/15-07/17) - Prevacid 30mg daily - Miralax - Zofran, Benadryl prn - IV benadryl - capsaicin cream - tums, pepto - Scopolamine patches prn - Ramo Toradol + Tylenol prn [ ] Consider need for GI c/s (concern for ?SMA) [x] HEADSS exam/further info on drug use/safety - STI workup/pelvic exam pending Heads screen results S/p obstructive series 07/15; wnl [ ] Consider consult to Psychology Assessment & Plan (07/14/2022 8:43 PM TUNNEL HEADING INSPECTOR): Lorraine Pacheco is a 17 y/o previously healthy F with one month hx of abdominal pain and emesis with recent admission to [facility] 07/03-07/13 who presents with recurrence of sx. Extensive workup during her last admission was unremarkable. The only significant result was a (+) UDS for THC. Repeat labs in the ED were also unremarkable. Given pts persistent sx and lack of clear triggers ddx includes psychological causes such as FAD or cannabis hyperemesis syndrome given her hx and UDS. Currently endorsing pain/nausea but in stable condition. Plan: - Reg diet + mIVF - Prevacid 30mg daily - Miralax - Zofran, Benadryl prn - Scopolamine patches prn - Ramo Toradol + Tylenol prn [ ] Consider need for GI c/s Assessment & Plan (07/14/2022 8:41 PM TUNNEL HEADING INSPECTOR): Lorraine Pacheco is a 17 y/o previously healthy F with one month hx of abdominal pain and emesis with recent admission to [facility] 07/03-07/13 who presents with recurrence of sx. Extensive workup during her last admission was unremarkable. The only significant result was a (+) UDS for THC. Repeat labs in the ED were also unremarkable. Given pts persistent sx and lack of clear triggers ddx includes psychological causes such as FAD or cannabis hyperemesis syndrome given her hx and UDS. Currently endorsing pain/nausea but in stable condition. Plan: - Reg diet + mIVF - Prevacid 30mg daily - Miralax - Zofran, Benadryl prn - Scopolamine patches prn - Ramo Toradol + Tylenol prn [ ] Consider need for GI c/s Vitamin D deficiency 07/04/2022 Assessment & Plan (07/05/2022 10:25 AM TUNNEL HEADING INSPECTOR): 25 vit D on admission - started 50,000 units ergocalciferol qweek, plan x8w and repeat level Assessment & Plan (07/04/2022 11:49 AM TUNNEL HEADING INSPECTOR): 25 vit D on admission - started 50,000 units ergocalciferol qweek, plan x8w and repeat level High serum vitamin B12 07/04/2022 Assessment & Plan (07/07/2022 4:09 PM TUNNEL HEADING INSPECTOR): Hold supplementation Assessment & Plan (07/05/2022 10:25 AM TUNNEL HEADING INSPECTOR): Hold supplementation Assessment & Plan (07/04/2022 11:53 AM TUNNEL HEADING INSPECTOR): Hold supplementation Nausea & vomiting 07/03/2022 Assessment & Plan (07/13/2022 1:56 PM TUNNEL HEADING INSPECTOR): Patient presenting with subacute N/V with limited ability to maintain consistent PO intake over course. 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 Malnutrition-related gastroparesis possible though considered less likely; possible eating disorder component given chronicity of malnutrition. - Thus far evaluation with unremarkable CMP/CBC, lipase 55, hs-trop <4 x 2, urinary hCG negative, UA clear, RVP negative, HIV neg, CXR clear, CT-AP without acute process, Utox + cannabinoids but otherwise negative. GI was consulted, EGD was done on 07/07 was unremarkable. Biopsies unremarkable, neg for H.pylori. - Zofran scheduled Q 8 hours. - Trial scopolamine patch - Trial PPI - Counseled on avoiding cannabis - Psych consulted, do not think pt has eating disorder. - NG tube placed yesterday and started on TF, but patient has been tolerating regular diet >24h with no n/v. Will remove NG tube and discharge home with anti-emetics, patient agreeable with plan. Assessment & Plan (07/05/2022 10:25 AM TUNNEL HEADING INSPECTOR): Patient presenting with subacute N/V with limited ability to maintain consistent PO intake over course. 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 Malnutrition-related gastroparesis possible though considered less likely; possible eating disorder component given chronicity of malnutrition. - Thus far evaluation with unremarkable CMP/CBC, lipase 55, hs-trop <4 x 2, urinary hCG negative, UA clear, RVP negative, HIV neg, CXR clear, CT-AP without acute process, Utox + cannabinoids but otherwise negative - Cu level ordered - Zofran pediatric dosed - Trial IV ativan prn, scopolamine patch - Trial PPI - Avoid cannabis - Consult GI Assessment & Plan (07/04/2022 11:51 AM TUNNEL HEADING INSPECTOR): Patient presenting with subacute N/V with limited ability to maintain consistent PO intake over course. Unclear etiology at this time, though concern for cannabis-induced hyperemesis (daily use until initiation of symptoms); ?GERD, course too long for viral gastro. Malnutrition-related gastroparesis possible though considered less likely; possible eating disorder component given chronicity of malnutrition. - Thus far evaluation with unremarkable CMP/CBC, lipase 55, hs-trop <4 x 2, urinary hCG negative, UA clear, RVP negative, CXR clear, CT-AP without acute process. - HIV neg - Cu level ordered - D5-LR ordered, trial compazine, ADAT - monitor for refeeding - Trial PPI - Avoid cannabis - Check Utox Vision changes 07/03/2022 Assessment & Plan (07/13/2022 1:57 PM TUNNEL HEADING INSPECTOR): Patient reports intermittent blurry vision over both eyes over the past several days (not present during encounter). No complaints currently. 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 - May consider ophtho referral outpatient Assessment & Plan (07/03/2022 10:07 PM TUNNEL HEADING INSPECTOR): - Patient reports intermittent blurry vision over both eyes over the past several days (not present during encounter) - Unclear etiology - possible orthostatic; given history concern for 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; limited concern for optic neuritis given bilateral involvement - CTM, consider head imaging and ophthalmology consult if recurrent/ongoing during admission Severe malnutrition (CMS/HCC) 07/03/2022 Assessment & Plan (07/13/2022 1:58 PM TUNNEL HEADING INSPECTOR): Patient with chronically low BMI per chart review with current BMI 14 and reported 10 lb weight loss recently related to vomiting and poor po intake - TF were started, but patient tolerating reg diet with no emesis, no concerns for malabsorption so TF not indicated at this time. Will plan to remove NG tube today. Assessment & Plan (07/05/2022 10:25 AM TUNNEL HEADING INSPECTOR): Patient with chronically low BMI per chart review with current BMI 14 and reported 10 lb weight loss recently related to vomiting and poor po intake - RD consult - ADAT, Ensure TIDAC - Calorie Count Assessment & Plan (07/04/2022 11:49 AM TUNNEL HEADING INSPECTOR): Patient with chronically low BMI per chart review with current BMI 14 and reported 10 lb weight loss recently related to vomiting and poor po intake - RD consult - ADAT, Ensure TIDAC - Calorie Count Resolved Problems Problem Noted Date Diagnosed Date Resolved Date Acute dystonic reaction due to drugs 07/05/2022 07/08/2022 Assessment & Plan (07/07/2022 4:09 PM TUNNEL HEADING INSPECTOR): Likely due to heavy use of compazine at home, plus got one dose of droperidol here and additional compazine. CT head unremarkable. EEG unremarkable. - avoid all dopaminergic medications - added compazine to allergy list w/ reaction of dystonia - neurology following - MRI brain ordered for blurry vision episode. MRI showed inferior cerebellar tonsillar ectopia otherwise no findings to explain symptoms. - IV Benadryl prn dystonia - symptoms resolved Assessment & Plan (07/05/2022 10:24 AM TUNNEL HEADING INSPECTOR): Likely due to heavy use of compazine at home, plus got one dose of droperidol here and additional compazine. CT head unremarkable. EEG unremarkable. - avoid all dopaminergic medications - added compazine to allergy list w/ reaction of dystonia - neurology following - MRI brain ordered due to concerns of blurred vision - IV Benadryl prn dystonia - symptoms improved today Chest pain, unspecified type 07/03/2022 07/14/2022 Assessment & Plan (07/10/2022 9:52 AM TUNNEL HEADING INSPECTOR): Likely musculoskeletal in since it only happens after vomiting or gagging. Assessment & Plan (07/05/2022 10:22 AM TUNNEL HEADING INSPECTOR): - Constant of L upper chest/shoulder region - worse with palpation and arm movement - hs-trop/EKG unremarkable; suspect MSK in etiology - Trial lidocaine patch, tylenol - PT/OT Assessment & Plan (07/03/2022 9:53 PM TUNNEL HEADING INSPECTOR): - Constant of L upper chest/shoulder region - worse with palpation and arm movement - hs-trop/EKG unremarkable; suspect MSK in etiology - Trial lidocaine patch, tylenol - PT/OT Abdominal pain 07/03/2022 07/05/2022 Assessment & Plan (07/04/2022 11:52 AM TUNNEL HEADING INSPECTOR): - Patient presenting with epigastric pain in setting of ongoing N/V - Evaluation per above - no clear acute process ongoing. Discussed with radiology and feel component of SMA syndrome not suggested by imaging - Given ongoing malnutrition - celiac screen, lead level, and porphobilinogen tests ordered - ESR/CRP wnl - Tylenol PRN - ADAT - Non-urgent GI consult if ongoing symptomatology with unremarkable workup - CTM Facial spasm 07/03/2022 07/05/2022 Assessment & Plan (07/05/2022 10:22 AM TUNNEL HEADING INSPECTOR): Patient with onset of bilateral facial spasm over V3 regions, lasting ~1-2min. Ca, Mg, K wnl. limited concern for lesion as etiology given bilateral - Trial baclofen - checking Cu level Assessment & Plan (07/04/2022 11:50 AM TUNNEL HEADING INSPECTOR): Patient with onset of bilateral facial spasm over V3 regions, lasting ~1-2min. Ca, Mg, K wnl. limited concern for lesion as etiology given bilateral - Trial baclofen - checking Cu level Surgical History Surgery Date Site/Laterality Comments NO PAST SURGERIES N/A Medical History Medical History Date Comments Known health problems: none Family History Medical History Relation Name Comments No Known Problems Father Ovarian cancer Mother Relation Name Status Comments Father Mother Social History Tobacco Use Types Packs/Day Years Used Date Smoking Tobacco: Some Days Vaping Tobacco Cessation:Ready to Q uit: Not Asked; Counseling Given: Not Answered Alcohol Use Standard Drinks/Week Comments Never 0 (1 standard drink = 0.6 oz pur e alcohol) Personal Safety Answer Date Recorded Getting School Help Needed Denies 06/19 Comments No Sex and Gender Information Value Date Recorded Sex Assigned at Not on file Legal Sex Female 7:29 PM TUNNEL HEADING INSPECTOR Gender Identity Not on file Sexual Orientation Not on file Obstetrics History Last Filed Vital Signs Vital Sign Reading Time Taken Comments Blood Pressure 99/56 07/17/2022 7:30 AM TUNNEL HEADING INSPECTOR Pulse 67 07/17/2022 7:30 AM TUNNEL HEADING INSPECTOR Temperature 37.7 ??C (99.9 ??F) 07/17/2022 7:30 AM CS T Respiratory Rate 20 07/17/2022 7:30 AM TUNNEL HEADING INSPECTOR Oxygen Saturation 98% 07/17/2022 7:30 AM TUNNEL HEADING INSPECTOR Inhaled Oxygen Concentration - - Weight 42.8 kg (94 lb 5.7 oz) 07/14/2022 6:29 PM TUNNEL HEADING INSPECTOR Height 171 cm (5' 7.32 ) 07/14/2022 6:29 PM TUNNEL HEADING INSPECTOR Body Mass Index 14.64 07/14/2022 6:29 PM TUNNEL HEADING INSPECTOR Plan of Treatment Health Maintenance Due Date Last Done Comments Depression Screening 2004 Hepatitis C Screening 2004 Pneumococcal vaccine <65 (1 of 1 - PPSV23 or PCV20) 2010 12/22/2005, 05/10/2005, 01/12/2005, Additional history exists Regular Well Visit/Exam 18-64 2022 Chlamydia and Gonorrhea (GC/ CT) Screening 06/18/2023 06/18/2022 Covid-19 Vaccine (3 2023-2 5 season) 2024 05/25/2021, 12/11/2020 Influenza Vaccine (#1) 2024 , 05/25/2021, 03/22/2018, Additional history exists DTaP/Tdap/Td Vaccine (7 - Td or Tdap) 12/10/2025 12/11/2015, 01/14/2009, 12/22/2005, Additional history exists Varicella Vaccines Completed 01/06/2010, 12/22/2005 HPV Vaccines Completed 03/22/2018, 12/11/2015 Meningococcal Vaccine Completed 03/13/2021, 016 Meningococcal B Vaccine Completed 05/25/2021, 03/13 Procedures Procedure Name Priority Date/Time Associated Diagnosis Comments N. GONORRHOEAE/C. TRACHOMATIS AMPLIFICATION STAT 06/18/2022 4:57 PM TUNNEL HEADING INSPECTOR from Last 3 Months or Most Recently Relevant to Health Maintenance Results * N. gonorrhoeae/C. trachomatis Amplification Urine (06/18/2022 4:57 PM TUNNEL HEADING INSPECTOR) C. trachomatis Not Detected Not Detected DES ROMO Comment:Testing performed by : [facility], [address] [place] [address]., [id number] N. gonorrhoeae Not Detected Not Detected DES Comment: Interpretive Data Testing performed by the [facility]. This assay detects Chlamydia trachomatis and Neisseria gonorrhoeae by nucleic acid amplification testing (NAAT). This test is approved by the [place] Food and Drug Administration and the performance characteristics have been verified by the laboratory. The performance characteristics of this test have not been evaluated in individuals less than 14 years of age. Current Interpretive Data was last revised on 2019. Testing performed by: [facility], [address] [place] [address]., [id number] Urine (None) 06/18/2022 4:57 PM TUNNEL HEADING INSPECTOR 06/18/2022 5:11 PM TUNNEL HEADING INSPECTOR Evelyn Cheema MD LAB MICROBIOLOGY - GEN ERAL ORDERABLES Final Result DES [facility] [id number] [facility] Department [place] [address] from Last 3 Months or Most Recently Relevant to Health Maintenance Insurance [id number] [place] [address] Advance Directives For more information, please contact: [phone] * Full Code (Latest Code Status on File) Date Activated Date Inactivated Comments 07/14/2022 6:47 PM 07/17/2022 6:03 PM * Full Code Date Activated Date Inactivated Comments 07/03/2022 9:03 PM 07/13/2022 5:08 PM Care Teams [employer] Consultant Relationship Specialty Start Date End Date Rita Lynn MD [address] [place] [id number] PCP - General Pediatrics 07/04/22 No, Physician 07/03/22
--- OUTSIDE RECORDS SUMMARY | 2024-07-02 06:53 | XMS_ITS | Encounter Summary ---
Author Organization [facility] Address [address] [place] [address] Care Team Providers Care Blasting Contract Miner Name Role Phone Unavailable Primary Care Provider Unavailabl e Encounter Details Date Type Department Care Team (Late st Contact Info) Description 04/29/2020 2:00 PM COMPOSITE WORKER Rapid Evaluation [place] [facility] Community Testing [facility] [address] [place] [address] Social History Tobacco Use Types Packs/Day Years Used Date Smoking Tobacco: Never Assessed Comments Unknown Sex and Gender Information Value Date Recorded Sex Assigned at Not on file Legal Sex Female 1:11 PM COMPOSITE WORKER Gender Identity Not on file Sexual Orientation Not on file documented as of this encounter Plan of Treatment Not on file documented as of this encounter Visit Diagnoses Not on filedocumented in this encounter
--- OUTSIDE RECORDS SUMMARY | 2024-07-02 06:53 | XMS_ITS | Encounter Summary ---
Author Organization [facility] Healthcare Address [address] [place] [address] Care Team Providers Care [employer]itness Centre Manager Name Role Phone Basim Lynn MD Primary Care Provider [phone] No, Physician Unavailable Reason for Visit * Reason Comments Abdominal Pain * Auth/Cert Specialty Diagnoses / Procedures Referred By Contac t Referred To Contact Diagnoses Abdominal pain R10.9 (ICD-10-CM) - Abdominal pain Procedures na Referral ID Status Reason Start Date Expiration Date Visits Re quested Visits Authorized [id number] 1 1 Encounter Details Date Type Department Care Team (Late st Contact Info) Description 07/14/2022 3:33 PM FENCE ERECTOR - 07/17/2022 1:00 PM [facility] [address] [place] [address] Marko Thayer MD [address] [address] Soheila Andres MD [address] [address] Ayaan Espino MD [address] [address] Abdominal pain (Primary Dx) Discharge Disposition: Discharge to home or self care Social History Tobacco Use Types Packs/Day Years Used Date Smoking Tobacco: Some Days Vaping Comments No Sex and Gender Information Value Date Recorded Sex Assigned at Not on file Legal Sex Female 7:29 PM FENCE ERECTOR Gender Identity Not on file Sexual Orientation Not on file documented as of this encounter Last Filed Vital Signs Vital Sign Reading Time Taken Comments Blood Pressure 99/56 07/17/2022 7:30 AM FENCE ERECTOR Pulse 67 07/17/2022 7:30 AM FENCE ERECTOR Temperature 37.7 ??C (99.9 ??F) 07/17/2022 7:30 AM CS T Respiratory Rate 20 07/17/2022 7:30 AM FENCE ERECTOR Oxygen Saturation 98% 07/17/2022 7:30 AM FENCE ERECTOR Inhaled Oxygen Concentration - - Weight 42.8 kg (94 lb 5.7 oz) 07/14/2022 6:29 PM FENCE ERECTOR Height 171 cm (5' 7.32 ) 07/14/2022 6:29 PM FENCE ERECTOR Body Mass Index 14.64 07/14/2022 6:29 PM FENCE ERECTOR Body Mass Index Percentile 0.00% 07/14/2022 6:2 9 PM FENCE ERECTOR Growth Chart: [facility] (Girls, 2- 20 Years) documented in this encounter Discharge Summaries * Antione Carcamo MD - 07/17/2022 11:28 AM CST Inpatient Discharge Summary BRIEF OVERVIEW Admitting Provider: Soheila Andres MD Discharge Provider: Soheila Andres MD Primary Care Physician at Discharge: Basim Lynn MD [phone] Admission Date: 07/14/2022 Discharge Date: 07/17/2022 Admission Location: [facility] Problems/Diagnoses: Principal Problem: Abdominal pain Resolved Problems: No resolved hospital problems. DETAILS OF HOSPITAL STAY Presenting Problem/History of Present Illness: Lorraine diaz is a previously healthy 17 y/o F who has a one month hx of abdominal pain and vomiting who was recently admitted to [facility] from 07/03 to 07/13 for these sx and currently presents with recurrence of the abdominal pain and emesis. During her last hospitalization she received an extensive workup which included an unremarkable CMP/CBC, lipase 55, high sensitivity-troponins <4 x 2, urinary hCG negative, UA clear, RVP negative,CXR clear, CT-Abdomen pelvis without acute process, EGD with neg biopsies and no pathology, Helicobacter pylori neg, cu lvl low, lead level nl. 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 The only positive result in her workup was a UDS (+) for THC. She was evaluated by psychology for an eating disorder but they did not have significant concern. After discharge pt abdominal pain returned with 3 episodes of NBNB emesis prompting representation at [facility] ED. Repeat CBC, CMP, RVP and EKG were wnl. She was admitted for supportive measures and further workup. Hospital Course: While admitted pt disclosed a significant hx of THC usage, 2-3x a daily for previous year and she was tx w/ Aprepitant for three days for Cannabis Hyperemesis Syndrome. She had an obstructive series done which was unremarkable. HEADS exam revealed no concerns other than THC usage. She received multiple PRN medications to aid with her discomfort. She as discharged in stable condition on 07/17 with plans to f/u with her PCP. Active Issues Requiring Follow-up: None Test Results Pending at Discharge: None Operative Procedures Performed: None Other Procedures: None Pertinent Test Results: None Discharge Details Physical Exam at Discharge: Discharge Condition: good Pulse: 67 Resp: 20 BP: 99/56 Temp: 37.7 ??C (99.9 ??F) Weight: 42.8 kg (94 lb 5.7 oz) Pertinent Exam Findings at Discharge: Physical Exam Constitutional: Comments: Thin HENT: Head: Normocephalic and atraumatic. Eyes: Extraocular Movements: Extraocular movements intact. Pupils: Pupils are equal, round, and reactive to light. Cardiovascular: Rate and Rhythm: Normal rate and regular rhythm. Heart sounds: No murmur heard. No friction rub. No gallop. Pulmonary: Effort: Pulmonary effort is normal. Breath sounds: Normal breath sounds. Abdominal: General: Abdomen is flat. Bowel sounds are normal. Palpations: Abdomen is soft. Comments: Mild abdominal pain with some nausea on palpation Skin: General: Skin is warm. Capillary Refill: Capillary refill takes less than 2 seconds. Neurological: General: No focal deficit present. Mental Status: She is alert. Psychiatric: Mood and Affect: Mood normal. Behavior: Behavior normal. Discharge Disposition: Discharge to home or self care Code Status at Discharge: Full Discharge Instructions: Upon returning home continue to take your pepcid and protonix as previously prescribed. Zofran 4mg can be taken every 8 hours as needed for nausea. OTC throat lozenges and cold foods can help with the burning throat pain if it persists. Cannabis Hyperemesis Syndrome can easily return if the patient is to use marijuana in the future. Therefore it is highly encouraged to avoid its use for medicinal or recreational purposes in the future. We recommend that all patients establish a follow-up appointment with their PCP within one to two weeks following discharge to ensure continued improvement. Please contact your vance provider officeto make an appointment at your earliest convenience. Activity Instructions Post-Discharge activity: May return to school / daycare / usual activities Diet Instructions Pediatric Discharge Diet Diet Type: Return to previous diet Other Instructions Provider to Notify Notify Basim Lynn MD for signs and symptoms listed below unless specified. Summary of care Lorraine was admitted for recurrence of her chest pains and emesis. During her admission repeat lab work, EKG, and obstructive series x ray were all unremarkable so she was treated with Aprepitant for presumed cannabis hyperemesis syndrome. She had a great response to the medication with cessation ofher emesis following treatment. Education was provided to the patient and well as multiple family members regarding this diagnosis. Discharge Medications: Current Medications TAKE these medications acetaminophen 500 mg capsule Take 2 capsules (1,000 mg total) by mouth every 6 (six) hours as needed (pain) For: fever, pain ergocalciferol 50,000 unit capsule Take 1 capsule (50,000 Units total) by mouth once a week for 7 doses Commonly known as: VITAMIN D Start taking on: July 18, 2022 famotidine 20 mg tablet Take 20 mg by mouth 2 (two) times a day Commonly known as: PEPCID medroxyPROGESTERone 150 mg/mL injection Inject 150 mg into the muscle as instructed every 3 (three) months Commonly known as: DEPO-PROVERA ondansetron ODT 4 mg disintegrating tablet Take 1 tablet (4 mg total) by mouth every 8 (eight) hours as needed for nausea or vomiting Commonly known as: ZOFRAN-ODT pantoprazole DR 40 mg EC tablet Take 1 tablet (40 mg total) by mouth daily Commonly known as: PROTONIX polyethylene glycol 17 gram packet Take 1 packet (17 g total) by mouth daily For: constipation Commonly known as: MIRALAX scopolamine 1 mg over 3 days patch [address] 1 patch on the skin every third day Outpatient Follow-Up: Contact Information for Follow-ups Basim Lynn MD Specialty: Pediatrics Relationship: PCP - General [address] [address] Next Steps: Follow up Questions: To provider: BASIM LYNN Cosigned by Soheila Andres MD at 07/17/2022 12:48 PM FENCE ERECTOR E ERECTOR E ERECTOR Associated attestation - Soheila Andres MD - 07/17/2022 12:48 PM FENCE ERECTOR I have seen and examined the patient on 07/17/22. I agree with the findings and plan of care as documented in the resident's/fellow's note. and as discussed with the resident/fellow.. I spent 32 minutes on discharge planning activities. Time spent was on Coordination of care, Counselling with patient/family, discharge exam, and parent/patient education. Pt admitted with abdominal pain and emesis - states pain is much improved today, and no further emesis. Pt states feels better from hot showers . Pt has received 3 days of aprepitant for presumed cannabis hyperemesis. Discussed the importanceof avoiding MJ use in the future. Stable for discharge. documented in this encounter Discharge Instructions * Discharge Instructions* Antione Carcamo MD - 07/16/2022 1:35 PM FENCE ERECTOR Upon returning home continue to take your pepcid and protonix as previously prescribed. Zofran 4mg can be taken every 8 hours as needed for nausea. OTC throat lozenges and cold foods can help with the burning throat pain if it persists. Cannabis Hyperemesis Syndrome can easily return if the patient is to use marijuana in the future. Therefore it is highly encouraged to avoid its use for medicinal or recreational purposes in the future. We recommend that all patients establish a follow-up appointment with their PCP within one to two weeks following discharge to ensure continued improvement. Please contact your vance provider officeto make an appointment at your earliest convenience. E ERECTOR E ERECTOR E ERECTOR documented in this encounter Medications at Time of Discharge acetaminophen 500 mg capsuleIndications: Fever,Pain Take 2 capsules (1,000 mg total) by mouth every 6 (six) hours as needed (pain) 30 tablet 07/13/2022 ergocalciferol (VITAMIN D) 50,000 unit capsule Take 1 capsule (50,000 Units total) by mouth once a week for 7 doses 4 capsule 1 07/18/2022 famotidine (PEPCID) 20 mg tablet Take 20 mg by mouth 2 (two) times a day 07/13/2022 medroxyPROGESTERone 150 mg/mL injection Inject 150 mg into the muscle as instructed every 3 (three) months 06/17/2022 metoclopramide (REGLAN) 10 mg tablet Take 1 tablet (10 mg total) by mouth every 6 (six) hours as needed (nausea, vomiting) 6 tablet 06/18/[address] (PROTONIX) 40 mg EC tablet Take 1 tablet (40 mg total) by mouth daily 30 tablet 07/13/2022 polyethylene glycol (MIRALAX) 17 gram packetIndications:c onstipation Take 1 packet (17 g total) by mouth daily 30 packet 07/14/2022 ondansetron ODT (ZOFRAN-ODT) 4 mg disintegrating tablet Take 1 tablet (4 mg total) by mouth every 8 (eight) hours as needed for nausea or vomiting 30 tablet 1 07/13/2022 3 scopolamine 1 mg over 3 days patch [address] 1 patch on the skin every third day 10 patch 07/13/2022 3 documented as of this encounter Discharge Disposition Disposition Code Departure Means Destination Discharge to home or self care documented in this encounter Progress Notes * Kirsty Dallas RD - 07/16/2022 1:32 PM CST Patient screened for nutrition risk on nursing nutrition screen for poor po intake and recent wt loss . Registered dietitian has reviewed chart including medical history, growth chart and intake. Pt with recent admission at [place] and was on tube feedings. No plan for specific nutrition intervention at this time. Please consult dietitian for additional nutrition risk concerns. E ERECTOR * Antione Carcamo MD - 07/16/2022 1:22 PM CST Pediatric Daily Progress Subjective Chief complaint of chest pain and emesis. Interval History: No acute events overnight. Pt took Benadryl prior to bed and was able to sleep though out the night without discomfort. Tolerated PO well yesterday evening and this AM. No further episodes of emesis since yesterday AM. VSS and I/Os are appropriate. Family concerns regarding work-up and sx were addressed. Objective Vitals: Vitals 24 hour ranges: Temp: [36.7 ??C (98.1 ??F)-37.5 ??C (99.5 ??F)] Pulse: [81-99] Resp: [17-22] BP: (94-132)/(59-87) I/O last 2 completed shifts: In: 1609 [P.O.:270; I.V.:1339] Out: - I/O this shift: In: 240 [P.O.:240] Out: - Physical Exam: Physical Exam Constitutional: General: She is in acute distress. Appearance: She is well-developed. HENT: Head: Normocephalic and atraumatic. Eyes: Extraocular Movements: Extraocular movements intact. Pupils: Pupils are equal, round, and reactive to light. Cardiovascular: Rate and Rhythm: Normal rate and regular rhythm. Heart sounds: No murmur heard. No friction rub. No gallop. Pulmonary: Effort: Pulmonary effort is normal. Breath sounds: Normal breath sounds. Abdominal: General: Abdomen is flat. Bowel sounds are normal. There is no distension. Palpations: Abdomen is soft. Tenderness: There is no abdominal tenderness. Skin: General: Skin is warm. Capillary Refill: Capillary refill takes less than 2 seconds. Neurological: General: No focal deficit present. Mental Status: She is alert. Psychiatric: Mood and Affect: Mood normal. Behavior: Behavior normal. Lab/Radiology/Diagnostic Review: Laboratory review: Lab results in the last 24 hours: No results found for this or any previous visit (from the past 24 hour(s)). Assessment/Plan * Abdominal pain Assessment & Plan Lorraine Diaz is a 17 y/o previously healthy F with one month hx of abdominal pain and emesis with recent admission to [facility] 07/03-07/13 who presents with recurrence of sx. Extensive workup during her lastadmission was unremarkable. The only significant result was [...] wnl [ ] Consider consult to Psychology Cosigned by Soheila Andres MD at 07/16/2022 5:27 PM FENCE ERECTOR E ERECTOR E ERECTOR Associated attestation - Soheila Andres MD - 07/16/2022 5:27 PM FENCE ERECTOR I have seen and examined the patient on 07/16/22. I agree with the findings and plan of care as documented in the resident's/fellow's note. and as discussed with the resident/fellow. Pt states she feels better today, no further emesis. On exam - afebrile, abd soft, nontender. Plan to cont aprepitant for 3 days total for cannabis hyperemesis. * Antione Carcamo MD - 07/15/2022 4:44 PM CST Pediatric Daily Progress Subjective Chief complaint of chest pain and emesis. Interval History: Overnight pt endorsed significant chest pain described as burning and had multiple episodes of emesis. She required IV zofran, IV benadryl, TUMS, pepto-bismol, capsaicin cream lexis NS bolus. This AM pts pain continued and she was treated with magic mouthwash with some relief. She had one emesis early this AM that was green in color. She has continued to endorse burning chest pain off an on throughout the day but has been refusing prn medications. VS and UOP and stools have been appropriate. Pt has tolerated little PO since her arrival but was able to take applesauce and ensure. Objective Vitals: Vitals 24 hour ranges: Temp: [36.7 ??C (98.1 ??F)-37.4 ??C (99.3 ??F)] Pulse: [89-104] Resp: [20-26] BP: (121-135)/(85-96) CAB 24 hr Ranges: I/O last 2 completed shifts: In: 1214.7 [I.V.:714.7; IV Piggyback:500] Out: 450 [Urine:300; Emesis/NG output:150] I/O this shift: In: 332 [I.V.:332] Out: - Physical Exam: Physical Exam Constitutional: General: She is in acute distress. Appearance: She is well-developed. HENT: Head: Normocephalic and atraumatic. Eyes: Extraocular Movements: Extraocular movements intact. Pupils: Pupils are equal, round, and reactive to light. Cardiovascular: Rate and Rhythm: Normal rate and regular rhythm. Heart sounds: No murmur heard. No friction rub. No gallop. Pulmonary: Effort: Pulmonary effort is normal. Breath sounds: Normal breath sounds. Abdominal: General: Abdomen is flat. Bowel sounds are normal. There is no distension. Palpations: Abdomen is soft. Tenderness: There is no abdominal tenderness. Skin: General: Skin is warm. Capillary Refill: Capillary refill takes less than 2 seconds. Neurological: General: No focal deficit present. Mental Status: She is alert. Psychiatric: Mood and Affect: Mood normal. Behavior: Behavior normal. Lab/Radiology/Diagnostic Review: Laboratory review: Lab results in the last 24 hours: Recent Results (from the past 24 hour(s)) Lipase Collection Time: 07/14/22 4:43 PM Result Value Ref Range Lipase 69 10 - 99 Units/L CBC with auto differential Collection Time: 07/14/22 4:43 PM Result Value Ref Range WBC 5.5 3.8 - 9.9 K/cumm Hgb 12.8 11.9 - 15.5 g/dL Hct 37.5 35.6 - 45.5 % Plt 188 150 - 400 K/cumm MPV 10.6 9.1 - 12.3 fL RBC 4.52 3.90 - 5.20 M/cumm MCV 83.0 81.3 - 96.4 fL MCH 28.3 27.1 - 33.3 pg MCHC 34.1 32.3 - 35.7 g/dL RDW CV 13.2 11.1 - 14.9 % RDW SD 39.8 35.7 - 48.1 fL NRBC abs 0.00 0.00 - 0.01 K/cumm Comprehensive metabolic panel Collection Time: 07/14/22 4:43 PM Result Value Ref Range Sodium 140 135 - 145 mmol/L Potassium, pl 3.6 3.3 - 4.9 mmol/L Chloride 105 97 - 110 mmol/L CO2 23 22 - 32 mmol/L Anion gap 12 2 - 15 mmol/L BUN 8 8 - 25 mg/dL Creatinine 0.75 0.40 - 1.00 mg/dL Glucose 109 70 - 199 mg/dL Calcium 9.8 8.5 - 10.3 mg/dL Bilirubin, total 0.5 0.1 - 1.2 mg/dL Protein, pl 7.1 6.5 - 8.5 g/dL Albumin 4.4 3.5 - 5.0 g/dL Alk phos 41 (L) 70 - 260 Units/L ALT 9 7 - 45 Units/L AST 25 10 - 45 Units/L Magnesium Collection Time: 07/14/22 4:43 PM Result Value Ref Range Magnesium 1.9 1.4 - 2.5 mg/dL Phosphorus Collection Time: 07/14/22 4:43 PM Result Value Ref Range Phosphorus, pl 2.0 (L) 2.3 - 4.5 mg/dL Respiratory pathogen panel Nasopharyngeal Collection Time: 07/14/22 4:43 PM Specimen: Nasopharyngeal Result Value Ref Range Influenza A RNA Not Detected Not Detected Influenza B RNA Not Detected Not Detected RSV RNA Not Detected Not Detected COVID-19 RNA Not Detected Not Detected Coronavirus 229E RNA Not Detected Not Detected Coronavirus HKU1 RNA Not Detected Not Detected Coronavirus NL63 RNA Not Detected Not Detected Coronavirus OC43 RNA Not Detected Not Detected Adenovirus DNA Not Detected Not Detected Metapneumovirus RNA Not Detected Not Detected Rhinovirus/Enterovirus RNA Not Detected Not Detected Parainfluenza 1 RNA Not Detected Not Detected Parainfluenza 2 RNA Not Detected Not Detected Parainfluenza 3 RNA Not Detected Not Detected Parainfluenza 4 RNA Not Detected Not Detected B. pertussis DNA Not Detected Not Detected B. parapertussis DNA Not Detected Not Detected C. pneumoniae DNA Not Detected Not Detected M. pneumoniae DNA Not Detected Not Detected Differential, auto Collection Time: 07/14/22 4:43 PM Result Value Ref Range Neutrophil abs 4.1 1.7 - 6.5 K/cumm Imm gran abs 0.0 0.0 - 0.1 K/cumm Lymphocyte abs 1.1 0.8 - 3.3 K/cumm Monocyte abs 0.3 0.2 - 0.8 K/cumm Eosinophil abs 0.0 0.0 - 0.5 K/cumm Basophil abs 0.0 0.0 - 0.1 K/cumm Neutrophil pct 73.8 % Imm gran pct 0.5 % Lymphocyte pct 19.3 % Monocyte pct 5.4 % Eosinophil pct 0.5 % Basophil pct 0.5 % eGFR Collection Time: 07/14/22 4:43 PM Result Value Ref Range eGFR >90 90 - 130 mL/min/1.73 m2 ECG 12 lead Collection Time: 07/14/22 4:47 PM Result Value Ref Range Ventricular Rate EKG/Min 92 BPM Atrial Rate 92 BPM CO-Interval (MSEC) 172 ms QRS-Interval (MSEC) 72 ms QT-Interval (MSEC) 348 ms QTc 432 ms P [place] 66 degrees R [place] 75 degrees T [place] 62 degrees Diagnosis Normal sinus rhythm Possible Left atrial enlargement No previous ECGs available Confirmed by fellow Marko Carlisle ([id number]) on 07/14/2022 5:45:16 PM I have personally reviewed the study and I agree with the above findings Confirmed by Radha Hwang ([id number]) on 07/14/2022 10:36:46 PM Assessment/Plan * Abdominal pain Assessment & Plan Lorraine Diaz is a 17 y/o previously healthy F with one month hx of abdominal pain and emesis with recent admission to [facility] 07/03-07/13 who presents with recurrence of sx. Extensive workup during her lastadmission was unremarkable. The only significant result was [...] wnl [ ] Consider consult to Psychology Cosigned by Soheila Andres MD at 07/15/2022 5:54 PM FENCE ERECTOR E ERECTOR E ERECTOR Associated attestation - Soheila Andres MD - 07/15/2022 5:54 PM FENCE ERECTOR I have seen and examined the patient on 07/15/22. I agree with the findings and plan of care as documented in the resident's/fellow's note. and as discussed with the resident/fellow. Pt with bilious emesis with white material present. On exam - anxious, afebrile, thin, RRR, cta bilaterally, abd soft Plan for obstructive series today, trial of aprepitant for cannabis hyperemesis. Pt states she had been using MJ daily prior to recent hospitalization at [place]. documented in this encounter H&P Notes * Antione Carcamo MD - 07/14/2022 8:44 PM CST History and Physical Subjective Patient is a 17 y.o. female with chief complaint of abdomina pain. HPI: Lorraine diaz is a previously healthy 17 y/o F who has a one month hx of abdominal pain and vomiting who was recently admitted to [facility] from 07/03 to 07/13 for these sx. She currently presents with recurrence of the abdominal pain and emesis. During her last hospitalization she received an extensive workup which included an unremarkable CMP/CBC, lipase 55, high sensitivity-troponins <4 x 2, urinary hCG negative, UA clear, RVP negative,CXR clear, CT-Abdomin pelvis without acute process, EGD with neg biopsies and no pathology, Helicobacter pylori neg, cu lvl low, lead level nl. 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 The only positive result in her workup was a UDS (+) for THC. Due to poor PO pt had an NG placed and tolerated feeds for 2 days prior to discharge so it was pulled. She was evaluated by psychology for an eating disorder but did not have significant concern. Sheas d/c home on 07/13 with famotidine, omeprazole, zofran and a scopolamine patch. Notably during this stay Toradol and ibuprofen were found to be unhelpful. After discharge pt abdominal pain returned with 3 episodes of NBNB emesis prompting representation at [facility] ED. VS were stable and exam was reassuring with only mild diffuse abdominal pain. CBC, CMP, RVP were negative. She received morphine, zofran, and a NS bolus. GI was consulted and agreed with admission for further eval. Upon arrival to the floor pt was endorsing significant nausea unresponsive to the zofran in the ED.Family states that pt did not do anything unusual at home that they know of to trigger the onset ofsx again. History reviewed. No pertinent past medical history. History reviewed. No pertinent surgical history. Medications Prior to Admission Medication Sig Dispense Refill Last Dose ??? acetaminophen 500 mg capsule Take 2 capsules (1,000 mg total) by mouth every 6 (six) hours as needed (pain) 30 tablet 0 07/13/2022 ??? [START ON 07/18/2022] ergocalciferol (VITAMIN D) 50,000 unit capsule Take 1 capsule (50,000 Units total) by mouth once a week for 7 doses 4 capsule 1 07/13/2022 ??? famotidine (PEPCID) 20 mg tablet Take 20 mg by mouth 2 (two) times a day ??? medroxyPROGESTERone 150 mg/mL injection Inject 150 mg into the muscle as instructed every 3 (three) months ??? ondansetron ODT (ZOFRAN-ODT) 4 mg disintegrating tablet Take 1 tablet (4 mg total) by mouth every 8 (eight) hours as needed for nausea or vomiting 30 tablet 1 07/13/2022 ??? pantoprazole DR (PROTONIX) 40 mg EC tablet Take 1 tablet (40 mg total) by mouth daily 30 tablet0 07/13/2022 ??? polyethylene glycol (MIRALAX) 17 gram packet Take 1 packet (17 g total) by mouth daily 30 packet 0 07/13/2022 ??? scopolamine 1 mg over 3 days patch [address] 1 patch on the skin every third day 10 patch 0 07/13/2022 Allergies Allergen Reactions ??? Compazine [Prochlorperazine] Dystonia Also droperidol Social History Tobacco Use ??? Smoking status: Some Days Types: Vaping ??? Smokeless tobacco: None Substance and Sexual Activity ??? Drug use: Yes Types: Marijuana ??? Sexual activity: None Alcohol Use: Not on file Family History Problem Relation Age of Onset ??? Ovarian cancer Mother Review of Systems Constitutional: Positive for chills and malaise/fatigue. Negative for fever. HENT: Negative for congestion, hearing loss, sinus pain and sore throat. Eyes: Negative for blurred vision. Respiratory: Negative for cough, hemoptysis and shortness of breath. Cardiovascular: Positive for chest pain. Gastrointestinal: Positive for abdominal pain, heartburn, nausea and vomiting. Negative for blood in stool, constipation and diarrhea. Genitourinary: Negative for dysuria, frequency, hematuria and urgency. Musculoskeletal: Negative for myalgias. Skin: Negative for rash. Neurological: Positive for headaches. Endo/Heme/Allergies: Negative for environmental allergies. Psychiatric/Behavioral: The patient is nervous/anxious. Objective Vitals: Arrival Vitals Temp 07/14/22 1538 36.2 ??C (97.2 ??F) Pulse 07/14/22 1538 110 Resp 07/14/22 1538 22 BP 07/14/22 1538 90/74 SpO2 07/14/22 1538 100 % Temp src 07/14/22 1538 Temporal Heart Rate Source 07/14/22 1829 Monitor Patient Position 07/14/22 1829 Lying BP Location 07/14/22 1829 Right arm FiO2 (%) -- 24hr Min/Max: Temp Min: 36.2 ??C (97.2 ??F) Max: 37 ??C (98.6 ??F) Pulse Min: 104 Max: 110 BP Min: 90/74 Max: 121/91 Resp Min: 22 Max: 31 SpO2 Min: 98 % Max: 100 % Most Recent : Vitals: 07/14/22 1829 BP: 121/91 Pulse: 104 Resp: Temp: 37 ??C (98.6 ??F) SpO2: 100% Physical exam: Constitutional: General: She is in acute distress. Appearance: She is not toxic-appearing. HENT: Head: Normocephalic and atraumatic. Mouth/Throat: Mouth: Mucous membranes are moist. Pharynx: Oropharynx is clear. Eyes: Extraocular Movements: Extraocular movements intact. Pupils: Pupils are equal, round, and reactive to light. Cardiovascular: Rate and Rhythm: Normal rate and regular rhythm. Heart sounds: No murmur heard. No friction rub. No gallop. Pulmonary: Effort: Pulmonary effort is normal. Breath sounds: Normal breath sounds. Abdominal: General: Abdomen is flat. Bowel sounds are normal. There is abdominal bruit. There is no distension. Palpations: Abdomen is soft. Skin: General: Skin is warm. Capillary Refill: Capillary refill takes less than 2 seconds. Neurological: General: No focal deficit present. Mental Status: She is alert. Psychiatric: Mood and Affect: Mood normal. Behavior: Behavior normal. Lab/Radiology/Diagnostic Review: Laboratory review: Lab results in the last 24 hours: Recent Results (from the past 24 hour(s)) Lipase Collection Time: 07/14/22 4:43 PM Result Value Ref Range Lipase 69 10 - 99 Units/L CBC with auto differential Collection Time: 07/14/22 4:43 PM Result Value Ref Range WBC 5.5 3.8 - 9.9 K/cumm Hgb 12.8 11.9 - 15.5 g/dL Hct 37.5 35.6 - 45.5 % Plt 188 150 - 400 K/cumm MPV 10.6 9.1 - 12.3 fL RBC 4.52 3.90 - 5.20 M/cumm MCV 83.0 81.3 - 96.4 fL MCH 28.3 27.1 - 33.3 pg MCHC 34.1 32.3 - 35.7 g/dL RDW CV 13.2 11.1 - 14.9 % RDW SD 39.8 35.7 - 48.1 fL NRBC abs 0.00 0.00 - 0.01 K/cumm Comprehensive metabolic panel Collection Time: 07/14/22 4:43 PM Result Value Ref Range Sodium 140 135 - 145 mmol/L Potassium, pl 3.6 3.3 - 4.9 mmol/L Chloride 105 97 - 110 mmol/L CO2 23 22 - 32 mmol/L Anion gap 12 2 - 15 mmol/L BUN 8 8 - 25 mg/dL Creatinine 0.75 0.40 - 1.00 mg/dL Glucose 109 70 - 199 mg/dL Calcium 9.8 8.5 - 10.3 mg/dL Bilirubin, total 0.5 0.1 - 1.2 mg/dL Protein, pl 7.1 6.5 - 8.5 g/dL Albumin 4.4 3.5 - 5.0 g/dL Alk phos 41 (L) 70 - 260 Units/L ALT 9 7 - 45 Units/L AST 25 10 - 45 Units/L Magnesium Collection Time: 07/14/22 4:43 PM Result Value Ref Range Magnesium 1.9 1.4 - 2.5 mg/dL Phosphorus Collection Time: 07/14/22 4:43 PM Result Value Ref Range Phosphorus, pl 2.0 (L) 2.3 - 4.5 mg/dL Respiratory pathogen panel Nasopharyngeal Collection Time: 07/14/22 4:43 PM Specimen: Nasopharyngeal Result Value Ref Range Influenza A RNA Not Detected Not Detected Influenza B RNA Not Detected Not Detected RSV RNA Not Detected Not Detected COVID-19 RNA Not Detected Not Detected Coronavirus 229E RNA Not Detected Not Detected Coronavirus HKU1 RNA Not Detected Not Detected Coronavirus NL63 RNA Not Detected Not Detected Coronavirus OC43 RNA Not Detected Not Detected Adenovirus DNA Not Detected Not Detected Metapneumovirus RNA Not Detected Not Detected Rhinovirus/Enterovirus RNA Not Detected Not Detected Parainfluenza 1 RNA Not Detected Not Detected Parainfluenza 2 RNA Not Detected Not Detected Parainfluenza 3 RNA Not Detected Not Detected Parainfluenza 4 RNA Not Detected Not Detected B. pertussis DNA Not Detected Not Detected B. parapertussis DNA Not Detected Not Detected C. pneumoniae DNA Not Detected Not Detected M. pneumoniae DNA Not Detected Not Detected Differential, auto Collection Time: 07/14/22 4:43 PM Result Value Ref Range Neutrophil abs 4.1 1.7 - 6.5 K/cumm Imm gran abs 0.0 0.0 - 0.1 K/cumm Lymphocyte abs 1.1 0.8 - 3.3 K/cumm Monocyte abs 0.3 0.2 - 0.8 K/cumm Eosinophil abs 0.0 0.0 - 0.5 K/cumm Basophil abs 0.0 0.0 - 0.1 K/cumm Neutrophil pct 73.8 % Imm gran pct 0.5 % Lymphocyte pct 19.3 % Monocyte pct 5.4 % Eosinophil pct 0.5 % Basophil pct 0.5 % eGFR Collection Time: 07/14/22 4:43 PM Result Value Ref Range eGFR >90 90 - 130 mL/min/1.73 m2 Assessment/Plan * Abdominal pain Assessment & Plan Lorraine Diaz is a 17 y/o previously healthy F with one month hx of abdominal pain and emesis with recent admission to [facility] 07/03-07/13 who presents with recurrence of sx. Extensive workup during her lastadmission was unremarkable. The only significant result was [...] [ ] Consider need for GI c/s Cosigned by Ayaan Espino MD at 07/15/2022 3:04 AM FENCE ERECTOR E ERECTOR E ERECTOR Associated attestation - Ayaan Espino MD - 07/15/2022 3:04 AM FENCE ERECTOR ATTENDING DOCUMENTATION I have seen and examined the patient on 07/14/2022. Pt is an 17 yo F with no sig PMH that presents with 1 mo hx of abd pain, emesis, abd pain with recent admit for 11 days at [facility] for similar complaints. Pt received extensive workup during her hospitalization including unremarkable CMP/CBC, lipase 55, hs-trop <4 x 2, urinary hCG negative, UA clear, RVP negative, CXR clear, CT-AP without acute process, UDS positive for THC, EGD with neg biopsies and no pathology, h pylori neg, cu lvl low, lead level nl. 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 NG placed and she tolerated NG feeds for 2 days prior to discharge, it was pulled theday of discharge. Psych consulted and eval'ed for eating d/o, but didn't think she had one, rec'ed SSRI but pt declined. Sent on schedule zofran/scopolamine patch. She tolerated NG feeds for 2 days prior to discharge, NG pulled for discharge. States that toradol and ibuprofen not helpful, compazine caused dystonic reaction. Discharged to home 07/13 and had 3 episodes of emesis this AM, thus re-presented. In [facility] ED, CBC, CMP, RVP negative. Phos low at 2. GI consulted and agreed with admission for further eval. Pt resting comfortably in bed. CV exam with RRR and no MRG. Resp exam with lungs CTAB, no focal sounds, and no respiratory distress. Abd exam soft, + tenderness, non-distended, no guarding. No LE edema. Oropharynx clear. # N/V # Abd pain, 1 month duration - Pt with extensive workup at [facility] for 11 days. CMP/CBC, lipase 55, hs-trop <4 x 2, CRP neg, urinary hCG negative, UA clear, RVP negative, CXR clear, CT-AP without acute process, UDS positive for THC, EGD with neg biopsies and no pathology, h pylori neg, cu lvl low, lead level nl. 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 NG placed and she tolerated NG feeds for 2 days prior to discharge, it was pulled the day of discharge. - ddx: gastroparesis, CVS, abdominal migraines, cannabis hyperemesis syndrome (showers improve pain/nausea), functional abdominal pain, SMA syndrome. Significant workup performed that has ruled out many things, including infectious etiologies, bladder/renal pathology, biliary/pancreatic abnormalitie s, ovarian torsion/cysts, gastritis/PUD, vasculitis. Absence of diarrhea makes IBD less likely. Head imaging negative. - Psych consulted at [facility], rec'ed SSRI, but patient refused - GI consulted in ED; appreciate assistance - start MIVFs, treat symptomatically. Consider trial of erythromycin/reglan I agree with the findings and plan of care as documented in the resident's/fellow's note. Ayaan Espino MD documented in this encounter Nursing Notes * Linette Morgan RN - 07/17/2022 11:40 AM CST Discharge instructions reviewed..Patient stable.. discharged home with grandparent. E ERECTOR documented in this encounter ED Notes * Luis Zayas MD - 07/14/2022 3:55 PM CST HPI Chief Complaint Patient presents with Abdominal Pain Lorraine is an 17 yo female with a 1 month hx of abdominal pain, vomiting presenting with abdominal pain. She was recently admitted from to [place] for these complaints as well as malnutrition.Her nausea and vomiting were managed with scopolamine patches and IV Zofran. She also received IV dilaudid, morphine for pain intermittently. Per Mom toradol and ibuprofen not helpful. Unable to use compazine due to concern for dystonic reaction after doing compazine suppositories as an outpatient.Workup during her hospitalization included unremarkable CMP/CBC, lipase 55, hs-trop <4 x 2, urinary hCG negative, UA clear, RVP negative, CXR clear, CT-AP without acute process. UDS positive for THC. She tolerated NG feeds for 2 days prior to discharge, NG pulled for discharge. After discharge yesterday, she reports her symptoms have worsened. Has been in extreme abdominal pain since this morning. Pain is epigastric, radiates into her chest/sternum. She has not been able to tolerate any PO today. Had three episodes of vomiting at home this morning and one additional episode of vomiting. Reports she still feels like she is going to vomit after getting ODT Zofran. Prior to 1 month ago, did not have any medical problems, has never had any similar episodes. PMH: none, normal growth and development Surgical: none Social: lives with mom, in high school, no concerns at school. Does vape and smoke marijuana Meds: d/c home with Zofran and scopolamine, no other meds NKDA Patient History: Patient Active Problem List Diagnosis Date Noted Abdominal pain 07/14/2022 Vitamin D deficiency 07/04/2022 High serum vitamin B12 07/04/2022 Nausea & vomiting 07/03/2022 Vision changes 07/03/2022 Severe malnutrition (CMS/HCC) (HCC) 07/03/2022 History reviewed. No pertinent past medical history. History reviewed. No pertinent surgical history. Family History Problem Relation Age of Onset Ovarian cancer Mother Social History Tobacco Use Smoking status: Some Days Types: Vaping Smokeless tobacco: None Substance and Sexual Activity Alcohol use: None Drug use: Yes Types: Marijuana Sexual activity: None Social History Social History Narrative Not on file Review of Systems Review of Systems Constitutional: Positive for appetite change and unexpected weight change. Negative for fatigue andfever. HENT: Negative for congestion and rhinorrhea. Eyes: Negative for discharge and itching. Respiratory: Negative for cough and shortness of breath. Cardiovascular: Negative for chest pain. Gastrointestinal: Positive for abdominal pain, nausea and vomiting. Negative for constipation. Genitourinary: Negative for enuresis and hematuria. Musculoskeletal: Negative for arthralgias and myalgias. Skin: Negative for rash. Neurological: Negative for dizziness and headaches. Psychiatric/Behavioral: Negative for behavioral problems. Physical Exam ED Triage Vitals Temp Pulse Resp BP SpO2 07/14/22 1538 07/14/22 1538 07/14/22 1538 07/14/22 1538 07/14/22 1538 36.2 ??C (97.2 ??F) 110 22 90/74 100 % Temp src Heart Rate Source Patient Position BP Location FiO2 (%) 07/14/22 1538 07/14/22 1829 07/14/22 1829 07/14/221828 -- Temporal Monitor Lying Right arm Height Height Method Weight Weight Method 07/14/22 1829 07/14/22 1829 07/14/22 1538 07/14/22 1538 1.71 m (5' 7.32 ) Measured 42.7 kg (94 lb 2.2 oz) Standing scale Physical Exam Constitutional: General: She is in acute distress. Comments: Extremely thin appearing HENT: Head: Normocephalic and atraumatic. Eyes: Extraocular Movements: Extraocular movements intact. Pupils: Pupils are equal, round, and reactive to light. Cardiovascular: Rate and Rhythm: Normal rate and regular rhythm. Heart sounds: Normal heart sounds. Pulmonary: Effort: Pulmonary effort is normal. Breath sounds: Normal breath sounds. Abdominal: General: Abdomen is flat. There is no distension. Palpations: Abdomen is soft. Tenderness: There is generalized abdominal tenderness. Skin: General: Skin is warm and dry. Capillary Refill: Capillary refill takes less than 2 seconds. Neurological: General: No focal deficit present. Mental Status: She is alert and oriented to person, place, and time. Psychiatric: Mood and Affect: Mood is anxious. MDM Medical Decision Making Lorraine is an 17 yo female with no PMH prior to 1 month ago when she began to have acute abdominal pain and daily vomiting. She is also extremely thin with a BMI today of 14. She has had an extensive workup at [place] last week including labs and abdominal/intracranial imaging. Extensive workup rulesout many causes of acute abdominal pain including appendicitis, ovarian torsion, SBO. Month of symptoms also less consistent with those pathologies. Unlikely increase ICP leading to vomiting with normal head imaging. Reassuring that she was able to tolerate NG feeds for 2 days, making dysmotility, anatomic issue less likely. Ddx includes functional abdominal pain, cyclic vomiting, cannabis hyper emesis, viral illness. Will send basic labs, hcg, ua, and UDS. GI consult. Likely admission for inability to tolerate PO. Amount and/or Complexity of Data Reviewed Labs: ordered. ECG/medicine tests: ordered. Risk Prescription drug management. Decision regarding hospitalization. ED Course as of 07/14/221858 Time: 07/14 1718 Comment: GI callback- agree with labs and admission, no further recommendations for workup right now By: Luis Zayas MD Final diagnoses: Abdominal pain Luis Zayas MD 07/14/221858 Cosigned by Marko Thayer MD at 07/15/2022 7:59 AM FENCE ERECTOR E ERECTOR E ERECTOR Associated attestation - Marko Thayer MD - 07/15/2022 7:59 AM FENCE ERECTOR I have seen and examined the patient on 07/14/2022. I agree with the findings and plan of care as documented in the resident's note. * Mariza Son RN - 07/14/2022 3:34 PM CST Pt having abdominal pain throughout abdomen and chest pain. Pt with bile colored, yellow emesis on arrival. Zofran last 1030. Pt reports it feels like something is squeezing her heart. Mother was just discharged from [place] after a 10 day admission yesterday. E ERECTOR * Mega Baltazar - 07/14/2022 3:33 PM CST Bed: ED1-10 Expected date: Expected time: Means of arrival: Ambulance Comments: E ERECTOR documented in this encounter Miscellaneous Notes * Plan of Care - Linette Morgan RN - 07/17/2022 7:15 AM CST Problem: Lack of Knowledge: Goal: Knowledge of disease or condition will improve Outcome: Progressing Problem: Fluid Volume: Goal: Signs and symptoms of dehydration will decrease Outcome: Progressing Goal: Ability to achieve a balanced intake and output will improve Outcome: Progressing Problem: Physical Regulation: Goal: Ability to maintain clinical measurements within normal limits will improve Outcome: Progressing Goal: Diagnostic test results will improve Outcome: Progressing Problem: Lack of Knowledge: Goal: Knowledge of the prescribed therapeutic regimen will improve Outcome: Progressing Problem: Coping: Goal: Verbalizations of decreased anxiety will increase Outcome: Progressing Problem: Sensory: Goal: Ability to identify pain intensity on a pain scale and rate it consistently will improve Outcome: Progressing Goal: Ability to demonstrate ways to enhance comfort will improve Outcome: Progressing Goal: Pain level will decrease Outcome: Progressing Goals: Clinical Goals for the Shift: VSS, decreased nausea/emesis, no abd pain, remain safe Summary: E ERECTOR * Plan of Care - Magnolia Valero RN - 07/17/2022 4:37 AM CST Goals: Clinical Goals for the Shift: VSS, decreased nausea/emesis, no abd pain, remain safe Summary: Patient had no PRN's for me and had no emesis. Problem: Lack of Knowledge: Goal: Knowledge of disease or condition will improve Outcome: Progressing Problem: Fluid Volume: Goal: Signs and symptoms of dehydration will decrease Outcome: Progressing Goal: Ability to achieve a balanced intake and output will improve Outcome: Progressing Problem: Physical Regulation: Goal: Ability to maintain clinical measurements within normal limits will improve Outcome: Progressing Goal: Diagnostic test results will improve Outcome: Progressing Problem: Lack of Knowledge: Goal: Knowledge of the prescribed therapeutic regimen will improve Outcome: Progressing Problem: Coping: Goal: Verbalizations of decreased anxiety will increase Outcome: Progressing Problem: Sensory: Goal: Ability to identify pain intensity on a pain scale and rate it consistently will improve Outcome: Progressing Goal: Ability to demonstrate ways to enhance comfort will improve Outcome: Progressing Goal: Pain level will decrease Outcome: Progressing E ERECTOR * Assessment & Plan Note - Antione Carcamo MD - 07/16/2022 1:20 PM FENCE ERECTOR Associated Problem(s): Abdominal pain Lorraine Diaz is a 17 y/o previously healthy F with one month hx of abdominal pain and emesis with recent admission to [facility] 07/03-07/13 who presents with recurrence of sx. Extensive workup during her lastadmission was unremarkable. The only significant result was [...] wnl [ ] Consider consult to Psychology E ERECTOR E ERECTOR * Subjective & Objective - Antione Carcamo MD - 07/16/2022 1:19 PM FENCE ERECTOR Pediatric Daily Progress Subjective Chief complaint of chest pain and emesis. Interval History: No acute events overnight. Pt took Benadryl prior to bed and was able to sleep though out the night without discomfort. Tolerated PO well yesterday evening and this AM. No further episodes of emesis since yesterday AM. VSS and I/Os are appropriate. Family concerns regarding work-up and sx were addressed. Objective Vitals: Vitals 24 hour ranges: Temp: [36.7 ??C (98.1 ??F)-37.5 ??C (99.5 ??F)] Pulse: [81-99] Resp: [17-22] BP: (94-132)/(59-87) I/O last 2 completed shifts: In: 1609 [P.O.:270; I.V.:1339] Out: - I/O this shift: In: 240 [P.O.:240] Out: - Physical Exam: Physical Exam Constitutional: General: She is in acute distress. Appearance: She is well-developed. HENT: Head: Normocephalic and atraumatic. Eyes: Extraocular Movements: Extraocular movements intact. Pupils: Pupils are equal, round, and reactive to light. Cardiovascular: Rate and Rhythm: Normal rate and regular rhythm. Heart sounds: No murmur heard. No friction rub. No gallop. Pulmonary: Effort: Pulmonary effort is normal. Breath sounds: Normal breath sounds. Abdominal: General: Abdomen is flat. Bowel sounds are normal. There is no distension. Palpations: Abdomen is soft. Tenderness: There is no abdominal tenderness. Skin: General: Skin is warm. Capillary Refill: Capillary refill takes less than 2 seconds. Neurological: General: No focal deficit present. Mental Status: She is alert. Psychiatric: Mood and Affect: Mood normal. Behavior: Behavior normal. Lab/Radiology/Diagnostic Review: Laboratory review: Lab results in the last 24 hours: No results found for this or any previous visit (from the past 24 hour(s)). E ERECTOR * Plan of Care - Honey Mo RN - 07/16/2022 9:55 AM FENCE ERECTOR Goals: Clinical Goals for the Shift: decreased nausea/vomitting Summary: Problem: Lack of Knowledge: Goal: Knowledge of disease or condition will improve Outcome: Progressing Problem: Fluid Volume: Goal: Signs and symptoms of dehydration will decrease Outcome: Progressing Goal: Ability to achieve a balanced intake and output will improve Outcome: Progressing Problem: Physical Regulation: Goal: Ability to maintain clinical measurements within normal limits will improve Outcome: Progressing Goal: Diagnostic test results will improve Outcome: Progressing Problem: Lack of Knowledge: Goal: Knowledge of the prescribed therapeutic regimen will improve Outcome: Progressing Problem: Coping: Goal: Verbalizations of decreased anxiety will increase Outcome: Progressing Problem: Sensory: Goal: Ability to identify pain intensity on a pain scale and rate it consistently will improve Outcome: Progressing Goal: Ability to demonstrate ways to enhance comfort will improve Outcome: Progressing Goal: Pain level will decrease Outcome: Progressing E ERECTOR * Plan of Care - Lisa Moore RN - 07/16/2022 4:52 AM CST Goals: Clinical Goals for the Shift: Patient will hane stable vital signs. Patient will have a decrease innausea and vomiting.Patient will have an increase in po intake. Patient will have adequate pain control. Summary: Patient's vitals have been stable. Patient is noted to have a decrease in nausea tonight and only one dose of zofran was given. Patient has had an increase in po from prior night and non emesis through the night. Patient has has minimal c/o chest burning. Patient has rested well. Problem: Lack of Knowledge: Goal: Knowledge of disease or condition will improve Outcome: Progressing Problem: Fluid Volume: Goal: Signs and symptoms of dehydration will decrease Outcome: Progressing Goal: Ability to achieve a balanced intake and output will improve Outcome: Progressing Problem: Physical Regulation: Goal: Ability to maintain clinical measurements within normal limits will improve Outcome: Progressing Goal: Diagnostic test results will improve Outcome: Progressing Problem: Lack of Knowledge: Goal: Knowledge of the prescribed therapeutic regimen will improve Outcome: Progressing Problem: Coping: Goal: Verbalizations of decreased anxiety will increase Outcome: Progressing Problem: Sensory: Goal: Ability to identify pain intensity on a pain scale and rate it consistently will improve Outcome: Progressing Goal: Ability to demonstrate ways to enhance comfort will improve Outcome: Progressing Goal: Pain level will decrease Outcome: Progressing E ERECTOR * Assessment & Plan Note - Antione Carcamo MD - 07/15/2022 4:41 PM FENCE ERECTOR Associated Problem(s): Abdominal pain Lorraine Diaz is a 17 y/o previously healthy F with one month hx of abdominal pain and emesis with recent admission to [facility] 07/03-07/13 who presents with recurrence of sx. Extensive workup during her lastadmission was unremarkable. The only significant result was [...] wnl [ ] Consider consult to Psychology E ERECTOR * Subjective & Objective - Antione Carcamo MD - 07/15/2022 4:34 PM FENCE ERECTOR Pediatric Daily Progress Subjective Chief complaint of chest pain and emesis. Interval History: Overnight pt endorsed significant chest pain described as burning and had multiple episodes of emesis. She required IV zofran, IV benadryl, TUMS, pepto-bismol, capsaicin cream lexis NS bolus. This AM pts pain continued and she was treated with magic mouthwash with some relief. She had one emesis early this AM that was green in color. She has continued to endorse burning chest pain off an on throughout the day but has been refusing prn medications. VS and UOP and stools have been appropriate. Pt has tolerated little PO since her arrival but was able to take applesauce and ensure. Objective Vitals: Vitals 24 hour ranges: Temp: [36.7 ??C (98.1 ??F)-37.4 ??C (99.3 ??F)] Pulse: [89-104] Resp: [20-26] BP: (121-135)/(85-96) CAB 24 hr Ranges: I/O last 2 completed shifts: In: 1214.7 [I.V.:714.7; IV Piggyback:500] Out: 450 [Urine:300; Emesis/NG output:150] I/O this shift: In: 332 [I.V.:332] Out: - Physical Exam: Physical Exam Constitutional: General: She is in acute distress. Appearance: She is well-developed. HENT: Head: Normocephalic and atraumatic. Eyes: Extraocular Movements: Extraocular movements intact. Pupils: Pupils are equal, round, and reactive to light. Cardiovascular: Rate and Rhythm: Normal rate and regular rhythm. Heart sounds: No murmur heard. No friction rub. No gallop. Pulmonary: Effort: Pulmonary effort is normal. Breath sounds: Normal breath sounds. Abdominal: General: Abdomen is flat. Bowel sounds are normal. There is no distension. Palpations: Abdomen is soft. Tenderness: There is no abdominal tenderness. Skin: General: Skin is warm. Capillary Refill: Capillary refill takes less than 2 seconds. Neurological: General: No focal deficit present. Mental Status: She is alert. Psychiatric: Mood and Affect: Mood normal. Behavior: Behavior normal. Lab/Radiology/Diagnostic Review: Laboratory review: Lab results in the last 24 hours: Recent Results (from the past 24 hour(s)) Lipase Collection Time: 07/14/22 4:43 PM Result Value Ref Range Lipase 69 10 - 99 Units/L CBC with auto differential Collection Time: 07/14/22 4:43 PM Result Value Ref Range WBC 5.5 3.8 - 9.9 K/cumm Hgb 12.8 11.9 - 15.5 g/dL Hct 37.5 35.6 - 45.5 % Plt 188 150 - 400 K/cumm MPV 10.6 9.1 - 12.3 fL RBC 4.52 3.90 - 5.20 M/cumm MCV 83.0 81.3 - 96.4 fL MCH 28.3 27.1 - 33.3 pg MCHC 34.1 32.3 - 35.7 g/dL RDW CV 13.2 11.1 - 14.9 % RDW SD 39.8 35.7 - 48.1 fL NRBC abs 0.00 0.00 - 0.01 K/cumm Comprehensive metabolic panel Collection Time: 07/14/22 4:43 PM Result Value Ref Range Sodium 140 135 - 145 mmol/L Potassium, pl 3.6 3.3 - 4.9 mmol/L Chloride 105 97 - 110 mmol/L CO2 23 22 - 32 mmol/L Anion gap 12 2 - 15 mmol/L BUN 8 8 - 25 mg/dL Creatinine 0.75 0.40 - 1.00 mg/dL Glucose 109 70 - 199 mg/dL Calcium 9.8 8.5 - 10.3 mg/dL Bilirubin, total 0.5 0.1 - 1.2 mg/dL Protein, pl 7.1 6.5 - 8.5 g/dL Albumin 4.4 3.5 - 5.0 g/dL Alk phos 41 (L) 70 - 260 Units/L ALT 9 7 - 45 Units/L AST 25 10 - 45 Units/L Magnesium Collection Time: 07/14/22 4:43 PM Result Value Ref Range Magnesium 1.9 1.4 - 2.5 mg/dL Phosphorus Collection Time: 07/14/22 4:43 PM Result Value Ref Range Phosphorus, pl 2.0 (L) 2.3 - 4.5 mg/dL Respiratory pathogen panel Nasopharyngeal Collection Time: 07/14/22 4:43 PM Specimen: Nasopharyngeal Result Value Ref Range Influenza A RNA Not Detected Not Detected Influenza B RNA Not Detected Not Detected RSV RNA Not Detected Not Detected COVID-19 RNA Not Detected Not Detected Coronavirus 229E RNA Not Detected Not Detected Coronavirus HKU1 RNA Not Detected Not Detected Coronavirus NL63 RNA Not Detected Not Detected Coronavirus OC43 RNA Not Detected Not Detected Adenovirus DNA Not Detected Not Detected Metapneumovirus RNA Not Detected Not Detected Rhinovirus/Enterovirus RNA Not Detected Not Detected Parainfluenza 1 RNA Not Detected Not Detected Parainfluenza 2 RNA Not Detected Not Detected Parainfluenza 3 RNA Not Detected Not Detected Parainfluenza 4 RNA Not Detected Not Detected B. pertussis DNA Not Detected Not Detected B. parapertussis DNA Not Detected Not Detected C. pneumoniae DNA Not Detected Not Detected M. pneumoniae DNA Not Detected Not Detected Differential, auto Collection Time: 07/14/22 4:43 PM Result Value Ref Range Neutrophil abs 4.1 1.7 - 6.5 K/cumm Imm gran abs 0.0 0.0 - 0.1 K/cumm Lymphocyte abs 1.1 0.8 - 3.3 K/cumm Monocyte abs 0.3 0.2 - 0.8 K/cumm Eosinophil abs 0.0 0.0 - 0.5 K/cumm Basophil abs 0.0 0.0 - 0.1 K/cumm Neutrophil pct 73.8 % Imm gran pct 0.5 % Lymphocyte pct 19.3 % Monocyte pct 5.4 % Eosinophil pct 0.5 % Basophil pct 0.5 % eGFR Collection Time: 07/14/22 4:43 PM Result Value Ref Range eGFR >90 90 - 130 mL/min/1.73 m2 ECG 12 lead Collection Time: 07/14/22 4:47 PM Result Value Ref Range Ventricular Rate EKG/Min 92 BPM Atrial Rate 92 BPM CO-Interval (MSEC) 172 ms QRS-Interval (MSEC) 72 ms QT-Interval (MSEC) 348 ms QTc 432 ms P [place] 66 degrees R [place] 75 degrees T [place] 62 degrees Diagnosis Normal sinus rhythm Possible Left atrial enlargement No previous ECGs available Confirmed by fellow Marko Carlisle ([id number]) on 07/14/2022 5:45:16 PM I have personally reviewed the study and I agree with the above findings Confirmed by Radha Hwang [id number]) on 07/14/2022 10:36:46 PM E ERECTOR * Hospital Course - Antione Carcamo MD - 07/15/2022 4:11 PM CST History of Presenting Illness: Lorraine diaz is a previously healthy 17 y/o F who has a one month hx of abdominal pain and vomiting who was recently admitted to [facility] from 07/03 to 07/13 for these sx and currently presents with recurrence of the abdominal pain and emesis. During her last hospitalization she received an extensive workup which included an unremarkable CMP/CBC, lipase 55, high sensitivity-troponins <4 x 2, urinary hCG negative, UA clear, RVP negative,CXR clear, CT-Abdomen pelvis without acute process, EGD with neg biopsies and no pathology, Helicobacter pylori neg, cu lvl low, lead level nl. 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 The only positive result in her workup was a UDS (+) for THC. She was evaluated by psychology for an eating disorder but they did not have significant concern. After discharge pt abdominal pain returned with 3 episodes of NBNB emesis prompting representation at [facility]. Repeat CBC, CMP, RVP and EKG were wnl. She was admitted for supportive measures and further workup. Hospital Course: While admitted pt disclosed a significant hx of THC usage, 2-3x a daily for previous year and she was tx w/ Aprepitant for three days for Cannabis Hyperemesis Syndrome. She had an obstructive series done which was unremarkable. HEADS exam revealed no concerns other than THC usage. She received multiple PRN medications to aid with her discomfort. She as discharged in stable condition on 07/17 with plans to f/u with her PCP. E ERECTOR E ERECTOR E ERECTOR E ERECTOR * Plan of Care - Linette Morgan RN - 07/15/2022 8:55 AM CST Problem: Lack of Knowledge: Goal: Knowledge of disease or condition will improve Outcome: Progressing Problem: Fluid Volume: Goal: Signs and symptoms of dehydration will decrease Outcome: Progressing Goal: Ability to achieve a balanced intake and output will improve Outcome: Progressing Problem: Physical Regulation: Goal: Ability to maintain clinical measurements within normal limits will improve Outcome: Progressing Goal: Diagnostic test results will improve Outcome: Progressing Problem: Lack of Knowledge: Goal: Knowledge of the prescribed therapeutic regimen will improve Outcome: Progressing Problem: Coping: Goal: Verbalizations of decreased anxiety will increase Outcome: Progressing Problem: Sensory: Goal: Ability to identify pain intensity on a pain scale and rate it consistently will improve Outcome: Progressing Goal: Ability to demonstrate ways to enhance comfort will improve Outcome: Progressing Goal: Pain level will decrease Outcome: Progressing Goals: Clinical Goals for the Shift: Patient will have stable vital signs. Patient will have a decrease innausea and emesis. Patient will have adequate pain control. Summary: E ERECTOR * Plan of Lisa Vera RN - 07/15/2022 4:40 AM CST Goals: Clinical Goals for the Shift: Patient will have stable vital signs. Patient will have a decrease innausea and emesis. Patient will have adequate pain control. Summary: Patient's vitals have remained stable. Patient noted to have poor po and constant nausea and emesis. Patient finally had a decrease in nausea and a decrease in pain after benadryl and toradol. Patient rested well last few hours of the night. Problem: Lack of Knowledge: Goal: Knowledge of disease or condition will improve Outcome: Progressing Problem: Fluid Volume: Goal: Signs and symptoms of dehydration will decrease Outcome: Progressing Goal: Ability to achieve a balanced intake and output will improve Outcome: Progressing Problem: Physical Regulation: Goal: Ability to maintain clinical measurements within normal limits will improve Outcome: Progressing Goal: Diagnostic test results will improve Outcome: Progressing Problem: Lack of Knowledge: Goal: Knowledge of the prescribed therapeutic regimen will improve Outcome: Progressing Problem: Coping: Goal: Verbalizations of decreased anxiety will increase Outcome: Progressing Problem: Sensory: Goal: Ability to identify pain intensity on a pain scale and rate it consistently will improve Outcome: Progressing Goal: Ability to demonstrate ways to enhance comfort will improve Outcome: Progressing Goal: Pain level will decrease Outcome: Progressing E ERECTOR * Subjective & Objective - Antione Carcamo MD - 07/14/2022 8:43 PM FENCE ERECTOR History and Physical Subjective Patient is a 17 y.o. female with chief complaint of abdomina pain. HPI: Lorraine diaz is a previously healthy 17 y/o F who has a one month hx of abdominal pain and vomiting who was recently admitted to [facility] from 07/03 to 07/13 for these sx. She currently presents with recurrence of the abdominal pain and emesis. During her last hospitalization she received an extensive workup which included an unremarkable CMP/CBC, lipase 55, high sensitivity-troponins <4 x 2, urinary hCG negative, UA clear, RVP negative,CXR clear, CT-Abdomin pelvis without acute process, EGD with neg biopsies and no pathology, Helicobacter pylori neg, cu lvl low, lead level nl. 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 The only positive result in her workup was a UDS (+) for THC. Due to poor PO pt had an NG placed and tolerated feeds for 2 days prior to discharge so it was pulled. She was evaluated by psychology for an eating disorder but did not have significant concern. Sheas d/c home on 07/13 with famotidine, omeprazole, zofran and a scopolamine patch. Notably during this stay Toradol and ibuprofen were found to be unhelpful. After discharge pt abdominal pain returned with 3 episodes of NBNB emesis prompting representation at [facility]. VS were stable and exam was reassuring with only mild diffuse abdominal pain. CBC, CMP, RVP were negative. She received morphine, zofran, and a NS bolus. GI was consulted and agreed with admission for further eval. Upon arrival to the floor pt was endorsing significant nausea unresponsive to the zofran in the ED.Family states that pt did not do anything unusual at home that they know of to trigger the onset ofsx again. History reviewed. No pertinent past medical history. History reviewed. No pertinent surgical history. Medications Prior to Admission Medication Sig Dispense Refill Last Dose acetaminophen 500 mg capsule Take 2 capsules (1,000 mg total) by mouth every 6 (six) hours as needed (pain) 30 tablet 0 07/13/2022 [START ON 07/18/2022] ergocalciferol (VITAMIN D) 50,000 unit capsule Take 1 capsule (50,000 Units total) by mouth once a week for 7 doses 4 capsule 1 07/13/2022 famotidine (PEPCID) 20 mg tablet Take 20 mg by mouth 2 (two) times a day medroxyPROGESTERone 150 mg/mL injection Inject 150 mg into the muscle as instructed every 3 (three)months ondansetron ODT (ZOFRAN-ODT) 4 mg disintegrating tablet Take 1 tablet (4 mg total) by mouth every 8(eight) hours as needed for nausea or vomiting 30 tablet 1 07/13/[address] (PROTONIX) 40 mg EC tablet Take 1 tablet (40 mg total) by mouth daily 30 tablet 0 07/13/2022 polyethylene glycol (MIRALAX) 17 gram packet Take 1 packet (17 g total) by mouth daily 30 packet 0 07/13/2022 scopolamine 1 mg over 3 days patch [address] 1 patch on the skin every third day 10 patch 0 07/13/2022 Allergies Allergen Reactions Compazine [Prochlorperazine] Dystonia Also droperidol Social History Tobacco Use Smoking status: Some Days Types: Vaping Smokeless tobacco: None Substance and Sexual Activity Drug use: Yes Types: Marijuana Sexual activity: None Alcohol Use: Not on file Family History Problem Relation Age of Onset Ovarian cancer Mother Review of Systems Constitutional: Positive for chills and malaise/fatigue. Negative for fever. HENT: Negative for congestion, hearing loss, sinus pain and sore throat. Eyes: Negative for blurred vision. Respiratory: Negative for cough, hemoptysis and shortness of breath. Cardiovascular: Positive for chest pain. Gastrointestinal: Positive for abdominal pain, heartburn, nausea and vomiting. Negative for blood in stool, constipation and diarrhea. Genitourinary: Negative for dysuria, frequency, hematuria and urgency. Musculoskeletal: Negative for myalgias. Skin: Negative for rash. Neurological: Positive for headaches. Endo/Heme/Allergies: Negative for environmental allergies. Psychiatric/Behavioral: The patient is nervous/anxious. Objective Vitals: Arrival Vitals Temp 07/14/22 1538 36.2 ??C (97.2 ??F) Pulse 07/14/22 1538 110 Resp 07/14/22 1538 22 BP 07/14/22 1538 90/74 SpO2 07/14/22 1538 100 % Temp src 07/14/22 1538 Temporal Heart Rate Source 07/14/22 1829 Monitor Patient Position 07/14/22 1829 Lying BP Location 07/14/22 1829 Right arm FiO2 (%) -- 24hr Min/Max: Temp Min: 36.2 ??C (97.2 ??F) Max: 37 ??C (98.6 ??F) Pulse Min: 104 Max: 110 BP Min: 90/74 Max: 121/91 Resp Min: 22 Max: 31 SpO2 Min: 98 % Max: 100 % Most Recent : Vitals: 07/14/22 1829 BP: 121/91 Pulse: 104 Resp: Temp: 37 ??C (98.6 ??F) SpO2: 100% Physical exam: Constitutional: General: She is in acute distress. Appearance: She is not toxic-appearing. HENT: Head: Normocephalic and atraumatic. Mouth/Throat: Mouth: Mucous membranes are moist. Pharynx: Oropharynx is clear. Eyes: Extraocular Movements: Extraocular movements intact. Pupils: Pupils are equal, round, and reactive to light. Cardiovascular: Rate and Rhythm: Normal rate and regular rhythm. Heart sounds: No murmur heard. No friction rub. No gallop. Pulmonary: Effort: Pulmonary effort is normal. Breath sounds: Normal breath sounds. Abdominal: General: Abdomen is flat. Bowel sounds are normal. There is abdominal bruit. There is no distension. Palpations: Abdomen is soft. Skin: General: Skin is warm. Capillary Refill: Capillary refill takes less than 2 seconds. Neurological: General: No focal deficit present. Mental Status: She is alert. Psychiatric: Mood and Affect: Mood normal. Behavior: Behavior normal. Lab/Radiology/Diagnostic Review: Laboratory review: Lab results in the last 24 hours: Recent Results (from the past 24 hour(s)) Lipase Collection Time: 07/14/22 4:43 PM Result Value Ref Range Lipase 69 10 - 99 Units/L CBC with auto differential Collection Time: 07/14/22 4:43 PM Result Value Ref Range WBC 5.5 3.8 - 9.9 K/cumm Hgb 12.8 11.9 - 15.5 g/dL Hct 37.5 35.6 - 45.5 % Plt 188 150 - 400 K/cumm MPV 10.6 9.1 - 12.3 fL RBC 4.52 3.90 - 5.20 M/cumm MCV 83.0 81.3 - 96.4 fL MCH 28.3 27.1 - 33.3 pg MCHC 34.1 32.3 - 35.7 g/dL RDW CV 13.2 11.1 - 14.9 % RDW SD 39.8 35.7 - 48.1 fL NRBC abs 0.00 0.00 - 0.01 K/cumm Comprehensive metabolic panel Collection Time: 07/14/22 4:43 PM Result Value Ref Range Sodium 140 135 - 145 mmol/L Potassium, pl 3.6 3.3 - 4.9 mmol/L Chloride 105 97 - 110 mmol/L CO2 23 22 - 32 mmol/L Anion gap 12 2 - 15 mmol/L BUN 8 8 - 25 mg/dL Creatinine 0.75 0.40 - 1.00 mg/dL Glucose 109 70 - 199 mg/dL Calcium 9.8 8.5 - 10.3 mg/dL Bilirubin, total 0.5 0.1 - 1.2 mg/dL Protein, pl 7.1 6.5 - 8.5 g/dL Albumin 4.4 3.5 - 5.0 g/dL Alk phos 41 (L) 70 - 260 Units/L ALT 9 7 - 45 Units/L AST 25 10 - 45 Units/L Magnesium Collection Time: 07/14/22 4:43 PM Result Value Ref Range Magnesium 1.9 1.4 - 2.5 mg/dL Phosphorus Collection Time: 07/14/22 4:43 PM Result Value Ref Range Phosphorus, pl 2.0 (L) 2.3 - 4.5 mg/dL Respiratory pathogen panel Nasopharyngeal Collection Time: 07/14/22 4:43 PM Specimen: Nasopharyngeal Result Value Ref Range Influenza A RNA Not Detected Not Detected Influenza B RNA Not Detected Not Detected RSV RNA Not Detected Not Detected COVID-19 RNA Not Detected Not Detected Coronavirus 229E RNA Not Detected Not Detected Coronavirus HKU1 RNA Not Detected Not Detected Coronavirus NL63 RNA Not Detected Not Detected Coronavirus OC43 RNA Not Detected Not Detected Adenovirus DNA Not Detected Not Detected Metapneumovirus RNA Not Detected Not Detected Rhinovirus/Enterovirus RNA Not Detected Not Detected Parainfluenza 1 RNA Not Detected Not Detected Parainfluenza 2 RNA Not Detected Not Detected Parainfluenza 3 RNA Not Detected Not Detected Parainfluenza 4 RNA Not Detected Not Detected B. pertussis DNA Not Detected Not Detected B. parapertussis DNA Not Detected Not Detected C. pneumoniae DNA Not Detected Not Detected M. pneumoniae DNA Not Detected Not Detected Differential, auto Collection Time: 07/14/22 4:43 PM Result Value Ref Range Neutrophil abs 4.1 1.7 - 6.5 K/cumm Imm gran abs 0.0 0.0 - 0.1 K/cumm Lymphocyte abs 1.1 0.8 - 3.3 K/cumm Monocyte abs 0.3 0.2 - 0.8 K/cumm Eosinophil abs 0.0 0.0 - 0.5 K/cumm Basophil abs 0.0 0.0 - 0.1 K/cumm Neutrophil pct 73.8 % Imm gran pct 0.5 % Lymphocyte pct 19.3 % Monocyte pct 5.4 % Eosinophil pct 0.5 % Basophil pct 0.5 % eGFR Collection Time: 07/14/22 4:43 PM Result Value Ref Range eGFR >90 90 - 130 mL/min/1.73 m2 E ERECTOR * Assessment & Plan Note - Antione Carcamo MD - 07/14/2022 8:43 PM FENCE ERECTOR Associated Problem(s): Abdominal pain Lorraine Diaz is a 17 y/o previously healthy F with one month hx of abdominal pain and emesis with recent admission to [facility] 07/03-07/13 who presents with recurrence of sx. Extensive workup during her lastadmission was unremarkable. The only significant result was [...] [ ] Consider need for GI c/s E ERECTOR * Assessment & Plan Note - Antione Carcamo MD - 07/14/2022 8:26 PM FENCE ERECTOR Associated Problem(s): Abdominal pain Lorraine Diaz is a 17 y/o previously healthy F with one month hx of abdominal pain and emesis with recent admission to [facility] 07/03-07/13 who presents with recurrence of sx. Extensive workup during her lastadmission was unremarkable. The only significant result was [...] [ ] Consider need for GI c/s E ERECTOR * Subjective & Objective - Antione Carcamo MD - 07/14/2022 7:33 PM FENCE ERECTOR History and Physical Subjective Patient is a 17 y.o. female with chief complaint of abdominal pain. HPI: Lorraine diaz is a previously healthy 17 y/o F who has a one month hx of abdominal pain and vomiting who was recently admitted to [facility] from 07/03 to 07/13 for these sx. She currently presents with recurrence of the abdominal pain and emesis. During her last hospitalization she received an extensive workup which included an unremarkable CMP/CBC, lipase 55, high sensitivity-troponins <4 x 2, urinary hCG negative, UA clear, RVP negative,CXR clear, CT-Abdomin pelvis without acute process, EGD with neg biopsies and no pathology, Helicobacter pylori neg, cu lvl low, lead level nl. 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 The only positive result in her workup was a UDS (+) for THC. Due to poor PO pt had an NG placed and tolerated feeds for 2 days prior to discharge so it was pulled. She was evaluated by psychology for an eating disorder but did not have significant concern. Sheas d/c home on 07/13 with famotidine, omeprazole, zofran and a scopolamine patch. Notably during this stay Toradol and ibuprofen were found to be unhelpful. After discharge pt abdominal pain returned with 3 episodes of NBNB emesis prompting representation at [facility]. VS were stable and exam was reassuring with only mild diffuse abdominal pain. CBC, CMP, RVP were negative. She received morphine, zofran, and a NS bolus. GI was consulted and agreed with admission for further eval. Upon arrival to the floor pt was endorsing significant nausea unresponsive to the zofran in the ED.Family states that pt did not do anything unusual at home that they know of to trigger the onset ofsx again. Medications Prior to Admission Medication Sig Dispense Refill Last Dose acetaminophen 500 mg capsule Take 2 capsules (1,000 mg total) by mouth every 6 (six) hours as needed (pain) 30 tablet 0 07/13/2022 [START ON 07/18/2022] ergocalciferol (VITAMIN D) 50,000 unit capsule Take 1 capsule (50,000 Units total) by mouth once a week for 7 doses 4 capsule 1 07/13/2022 ondansetron ODT (ZOFRAN-ODT) 4 mg disintegrating tablet Take 1 tablet (4 mg total) by mouth every 8(eight) hours as needed for nausea or vomiting 30 tablet 1 07/13/[address] (PROTONIX) 40 mg EC tablet Take 1 tablet (40 mg total) by mouth daily 30 tablet 0 07/13/2022 polyethylene glycol (MIRALAX) 17 gram packet Take 1 packet (17 g total) by mouth daily 30 packet 0 07/13/2022 scopolamine 1 mg over 3 days patch [address] 1 patch on the skin every third day 10 patch 0 07/13/2022 Allergies Allergen Reactions Compazine [Prochlorperazine] Dystonia Also droperidol Social History Tobacco Use Smoking status: Some Days Types: Vaping Smokeless tobacco: None Substance and Sexual Activity Drug use: Yes Types: Marijuana Sexual activity: None Alcohol Use: Not on file Family History Problem Relation Age of Onset Ovarian cancer Mother Review of Systems Review of Systems Constitutional: Positive for chills and malaise/fatigue. Negative for fever. HENT: Negative for congestion, hearing loss, sinus pain and sore throat. Eyes: Negative for blurred vision. Respiratory: Negative for cough, hemoptysis and shortness of breath. Cardiovascular: Positive for chest pain. Gastrointestinal: Positive for abdominal pain, heartburn, nausea and vomiting. Negative for blood in stool, constipation and diarrhea. Genitourinary: Negative for dysuria, frequency, hematuria and urgency. Musculoskeletal: Negative for myalgias. Skin: Negative for rash. Neurological: Positive for headaches. Endo/Heme/Allergies: Negative for environmental allergies. Psychiatric/Behavioral: The patient is nervous/anxious. Objective Vitals: Arrival Vitals Temp 07/14/22 1538 36.2 ??C (97.2 ??F) Pulse 07/14/22 1538 110 Resp 07/14/22 1538 22 BP 07/14/22 1538 90/74 SpO2 07/14/22 1538 100 % Temp src 07/14/22 1538 Temporal Heart Rate Source 07/14/22 1829 Monitor Patient Position 07/14/22 1829 Lying BP Location 07/14/22 1829 Right arm FiO2 (%) -- 24hr Min/Max: Temp Min: 36.2 ??C (97.2 ??F) Max: 37 ??C (98.6 ??F) Pulse Min: 104 Max: 110 BP Min: 90/74 Max: 121/91 Resp Min: 22 Max: 31 SpO2 Min: 98 % Max: 100 % Most Recent : Vitals: 07/14/22 1829 BP: 121/91 Pulse: 104 Resp: Temp: 37 ??C (98.6 ??F) SpO2: 100% Physical exam: Physical Exam Constitutional: General: She is in acute distress. Appearance: She is not toxic-appearing. HENT: Head: Normocephalic and atraumatic. Mouth/Throat: Mouth: Mucous membranes are moist. Pharynx: Oropharynx is clear. Eyes: Extraocular Movements: Extraocular movements intact. Pupils: Pupils are equal, round, and reactive to light. Cardiovascular: Rate and Rhythm: Normal rate and regular rhythm. Heart sounds: No murmur heard. No friction rub. No gallop. Pulmonary: Effort: Pulmonary effort is normal. Breath sounds: Normal breath sounds. Abdominal: General: Abdomen is flat. Bowel sounds are normal. There is abdominal bruit. There is no distension. Palpations: Abdomen is soft. Skin: General: Skin is warm. Capillary Refill: Capillary refill takes less than 2 seconds. Neurological: General: No focal deficit present. Mental Status: She is alert. Psychiatric: Mood and Affect: Mood normal. Behavior: Behavior normal. Lab/Radiology/Diagnostic Review: Laboratory review: Lab results in the last 24 hours: Recent Results (from the past 24 hour(s)) Lipase Collection Time: 07/14/22 4:43 PM Result Value Ref Range Lipase 69 10 - 99 Units/L CBC with auto differential Collection Time: 07/14/22 4:43 PM Result Value Ref Range WBC 5.5 3.8 - 9.9 K/cumm Hgb 12.8 11.9 - 15.5 g/dL Hct 37.5 35.6 - 45.5 % Plt 188 150 - 400 K/cumm MPV 10.6 9.1 - 12.3 fL RBC 4.52 3.90 - 5.20 M/cumm MCV 83.0 81.3 - 96.4 fL MCH 28.3 27.1 - 33.3 pg MCHC 34.1 32.3 - 35.7 g/dL RDW CV 13.2 11.1 - 14.9 % RDW SD 39.8 35.7 - 48.1 fL NRBC abs 0.00 0.00 - 0.01 K/cumm Comprehensive metabolic panel Collection Time: 07/14/22 4:43 PM Result Value Ref Range Sodium 140 135 - 145 mmol/L Potassium, pl 3.6 3.3 - 4.9 mmol/L Chloride 105 97 - 110 mmol/L CO2 23 22 - 32 mmol/L Anion gap 12 2 - 15 mmol/L BUN 8 8 - 25 mg/dL Creatinine 0.75 0.40 - 1.00 mg/dL Glucose 109 70 - 199 mg/dL Calcium 9.8 8.5 - 10.3 mg/dL Bilirubin, total 0.5 0.1 - 1.2 mg/dL Protein, pl 7.1 6.5 - 8.5 g/dL Albumin 4.4 3.5 - 5.0 g/dL Alk phos 41 (L) 70 - 260 Units/L ALT 9 7 - 45 Units/L AST 25 10 - 45 Units/L Magnesium Collection Time: 07/14/22 4:43 PM Result Value Ref Range Magnesium 1.9 1.4 - 2.5 mg/dL Phosphorus Collection Time: 07/14/22 4:43 PM Result Value Ref Range Phosphorus, pl 2.0 (L) 2.3 - 4.5 mg/dL Respiratory pathogen panel Nasopharyngeal Collection Time: 07/14/22 4:43 PM Specimen: Nasopharyngeal Result Value Ref Range Influenza A RNA Not Detected Not Detected Influenza B RNA Not Detected Not Detected RSV RNA Not Detected Not Detected COVID-19 RNA Not Detected Not Detected Coronavirus 229E RNA Not Detected Not Detected Coronavirus HKU1 RNA Not Detected Not Detected Coronavirus NL63 RNA Not Detected Not Detected Coronavirus OC43 RNA Not Detected Not Detected Adenovirus DNA Not Detected Not Detected Metapneumovirus RNA Not Detected Not Detected Rhinovirus/Enterovirus RNA Not Detected Not Detected Parainfluenza 1 RNA Not Detected Not Detected Parainfluenza 2 RNA Not Detected Not Detected Parainfluenza 3 RNA Not Detected Not Detected Parainfluenza 4 RNA Not Detected Not Detected B. pertussis DNA Not Detected Not Detected B. parapertussis DNA Not Detected Not Detected C. pneumoniae DNA Not Detected Not Detected M. pneumoniae DNA Not Detected Not Detected Differential, auto Collection Time: 07/14/22 4:43 PM Result Value Ref Range Neutrophil abs 4.1 1.7 - 6.5 K/cumm Imm gran abs 0.0 0.0 - 0.1 K/cumm Lymphocyte abs 1.1 0.8 - 3.3 K/cumm Monocyte abs 0.3 0.2 - 0.8 K/cumm Eosinophil abs 0.0 0.0 - 0.5 K/cumm Basophil abs 0.0 0.0 - 0.1 K/cumm Neutrophil pct 73.8 % Imm gran pct 0.5 % Lymphocyte pct 19.3 % Monocyte pct 5.4 % Eosinophil pct 0.5 % Basophil pct 0.5 % eGFR Collection Time: 07/14/22 4:43 PM Result Value Ref Range eGFR >90 90 - 130 mL/min/1.73 m2 E ERECTOR * ED Pre-Arrival Note - Ro Monahan RN - 07/14/2022 3:11 PM FENCE ERECTOR Pre-Arrival Note Unable to get full pre hospital report from EMS d/t phone connectivity issues. Was able to get thatpt is an 17yo F c/o abdominal pain and chest pain over the last month. Pt has been seen multiple times in multiple different ER's. Unable to copy any further report. Ro Monahan RN E ERECTOR documented in this encounter Plan of Treatment Not on file documented as of this encounter Procedures Procedure Name Priority Date/Time Associated Diagnosis Comments XR ABDOMEN ERECT AND OR DECUBITS 2 VIEWS ED Urgent/IP Urgent 07/15/2022 1:00 PM FENCE ERECTOR ECG 12-LEAD Routine 07/14/2022 4:47 PM FENCE ERECTOR EGFR STAT 07/14/2022 4:43 PM FENCE ERECTOR DIFFERENTIAL AUTO STAT 07/14/2022 4:4 3 PM FENCE ERECTOR RESPIRATORY PATHOGEN PANEL Routine 07/14/2022 4:43 PM FENCE ERECTOR CBC WITH AUTO DIFFERENTIAL STAT 07/14/2022 4:43 PM FENCE ERECTOR PHOSPHORUS STAT 07/14/2022 4:43 PM FENCE ERECTOR MAGNESIUM STAT 07/14/2022 4:43 PM FENCE ERECTOR LIPASE STAT 07/14/2022 4:43 PM FENCE ERECTOR COMPREHENSIVE METABOLIC PANEL STAT 07/14/2022 4:43 PM FENCE ERECTOR documented in this encounter Results * XR Abdomen Erect and or Decubitus 2 Views (07/15/2022 1:00 PM FENCE ERECTOR) Anatomical Region Laterality Modality Body, Abdomen N/A Computed Radiogr aphy 07/15/2022 1:10 PM FENCE ERECTOR Impressions 07/15/2022 1:10 PM FENCE ERECTOR Normal bowel gas pattern. Electronically signed by: Cesar Landers M.D. Narrative 07/15/2022 1:10 PM FENCE ERECTOR EXAMINATION: ??XR ABDOMEN ERECT AND OR DECUBITUS 2 VIEWS HISTORY: 17 years old Female with Biliary emesis. COMPARISON: 07/11/2022 abdomen radiograph. ??07/03/[address] FINDINGS: The visible lung bases are clear. There is a non-obstructed bowel gas pattern present with no evidence of pneumoperitoneum. Gas and stool is visible in the large bowel, from cecum to rectum. No acute osseous abnormality is appreciated. Procedure Note Cesar Landers IV, MD - 07/15/2022 EXAMINATION: XR ABDOMEN ERECT AND OR DECUBITUS 2 VIEWS HISTORY: 17 years old Female with Biliary emesis. COMPARISON: 07/11/2022 abdomen radiograph. 07/03/[address] FINDINGS: The visible lung bases are clear. There is a non-obstructed bowel gas pattern present with no evidence of pneumoperitoneum. Gas and stool is visible in the large bowel, from cecum to rectum. No acute osseous abnormality is appreciated. IMPRESSION: Normal bowel gas pattern. Electronically signed by: Cesar Landers M.D. Soheila Andres MD IMG XR PROCEDURES Fi nal Result * ECG 12 lead (07/14/2022 4:47 PM FENCE ERECTOR) Pathologist [facility] Ventricular Rate EKG/Min 92 BPM [facility] Atrial Rate 92 BPM [facility] CO-Interval (MSEC) 172 ms [facility] QRS-Interval (MSEC) 72 ms [facility] QT-Interval (MSEC) 348 ms [facility] QTc 432 ms [facility] P [place] 66 degrees [facility] R [place] 75 degrees [facility] T [place] 62 degrees [facility] Diagnosis Normal sinus rhythm Possible Left atrial enlargement No previous ECGs available Confirmed by fellow Marko Carlisle ([id number]) on 07/14/2022 5:45:16 PM I have personally reviewed the study and I agree with the above findings Confirmed by Radha Hwang ([id number]) on 07/14/2022 10:36:46 PM [facility] 07/14/2022 4:47 PM FENCE ERECTOR 07/14/2022 10:36 PM FENCE ERECTOR us Marko Thayer MD ECG ORDERABLES Final Resu lt [facility] * eGFR (07/14/2022 4:43 PM FENCE ERECTOR) Pathologist [facility] eGFR >90 90 - 130 mL/min/1. 73 m2 [facility] Comment: Interpretive Data Reference Interval Normal ?>/= 90 mL/min/1.73m2 Mildly decreased* ? 60 - 89 mL/min/1.73m2 Mildly to moderately decreased ?45 - 59 mL/min/1.73m2 Moderately to severely decreased ??30 - 44 mL/min/1.73m2 Severely decreased ?15 - 29 mL/min/1.73m2 Kidney Failure ?< 15 ??mL/min/1.73m2 *Relative to young adult level Estimated glomerular filtration rate is determined by the 2020 CKD-EPI equation recommended by the National Kidney [employer] (A Unifying Approach to GFR Estimation: Recommendations of the NKF-ASK Task Force on Reassessing the Inclusion of Race in Diagnosing Kidney Disease, JASN 202). The CKD-EPI equation should not be used for patients with unstable renal function and has not been validated in children and those over 70. Current interpretive data was last reviewed 2021. Blood 07/14/2022 4:43 PM FENCE ERECTOR 07/14/2022 5:02 PM FENCE ERECTOR us Marko Thayer MD LAB BLOOD ORDERABLES Final Result [facility] Department [place] [address] * Differential, auto (07/14/2022 4:43 PM FENCE ERECTOR) Neutrophil abs 4.1 1.7 - 6.5 K/cumm [facility] Imm gran abs 0.0 0.0 - 0.1 K/cumm [facility] Lymphocyte abs 1.1 0.8 - 3.3 K/cumm [facility] Monocyte abs 0.3 0.2 - 0.8 K/cumm [facility] Eosinophil abs 0.0 0.0 - 0.5 K/cumm [facility] Basophil abs 0.0 0.0 - 0.1 K/cumm [facility] Neutrophil pct 73.8 % [facility] Comment: Interpretive Data Percent cell count reference ranges are not reported, since discordance with absolute values may lead to misinterpretation of CBC data. Current Interpretive Data was last revised on 2017. Imm gran pct 0.5 % [facility] Comment: Interpretive Data Percent cell count reference ranges are not reported, since discordance with absolute values may lead to misinterpretation of CBC data. Current Interpretive Data was last revised on 2017. Lymphocyte pct 19.3 % [facility] Comment: Interpretive Data Percent cell count reference ranges are not reported, since discordance with absolute values may lead to misinterpretation of CBC data. Current Interpretive Data was last revised on 2017. Monocyte pct 5.4 % [facility] Comment: Interpretive Data Percent cell count reference ranges are not reported, since discordance with absolute values may lead to misinterpretation of CBC data. Current Interpretive Data was last revised on 2017. Eosinophil pct 0.5 % [facility] Comment: Interpretive Data Percent cell count reference ranges are not reported, since discordance with absolute values may lead to misinterpretation of CBC data. Current Interpretive Data was last revised on 2017. Basophil pct 0.5 % [facility] Comment: Interpretive Data Percent cell count reference ranges are not reported, since discordance with absolute values may lead to misinterpretation of CBC data. Current Interpretive Data was last revised on 2017. Blood 07/14/2022 4:43 PM FENCE ERECTOR 07/14/2022 5:02 PM FENCE ERECTOR Marko Thayer MD LAB BLOOD ORDERABLES Final Result Performing Organization Address City/State/[facility] Co de Phone Number [facility] Department [place] [address] * Respiratory pathogen panel Nasopharyngeal (07/14/2022 4:43 PM FENCE ERECTOR) Pathologist [facility] Influenza A RNA Not Detected Not Detected [facility] Influenza B RNA Not Detected Not Detected [facility] RSV RNA Not Detected Not Detected [facility] COVID-19 RNA Not Detected Not Detected [facility] Coronavirus 229E RNA Not Detected Not Detected [facility] Coronavirus HKU1 RNA Not Detected Not Detected [facility] Coronavirus NL63 RNA Not Detected Not Detected [facility] Coronavirus OC43 RNA Not Detected Not Detected [facility] Adenovirus DNA Not Detected Not Detected [facility] Metapneumovirus RNA Not Detected Not Detected [facility] Rhinovirus/Enterov irus RNA Not Detected Not Detected [facility] Parainfluenza 1 RNA Not Detected Not Detected [facility] Parainfluenza 2 RNA Not Detected Not Detected [facility] Parainfluenza 3 RNA Not Detected Not Detected [facility] Parainfluenza 4 RNA Not Detected Not Detected [facility] B. pertussis DNA Not Detected Not Detected [facility] B. parapertussis DNA Not Detected Not Detected [facility] C. pneumoniae DNA Not Detected Not Detected [facility] M. pneumoniae DNA Not Detected Not Detected [facility] Comment: Interpretive Data The Narrable FilmArray Respiratory Panel (RP2.1) assay is a multiplexed real-time PCR based nucleic acid test capable of simultaneous qualitative detection and identification of multiple respiratory viral and bacterial nucleic acids, including SARS Coronavirus 2 (the causative agent of COVID-19). The following bacteria, viruses and virus subtypes can be identified using the FilmArray RP2.1 assay: Bordetella pertussis, Bordetella parapertussis, Chlamydia pneumoniae, Mycoplasma pneumoniae, Adenovirus, SARS Coronavirus 2, seasonal coronaviruses (Coronavirus HKU1, Coronavirus NL63, Coronavirus 229E, and Coronavirus OC43), Influenza A, Influenza A subtype H1, Influenza A subtype H3, Influenza A subtype 2009 H1, Influenza B, Metapneumovirus, Parainfluenza 1, Parainfluenza 2, Parainfluenza 3, Parainfluenza 4, RSV, Rhinovirus/Enterovirus. Due to the genetic similarity between human Rhinovirus and Enterovirus, the FilmArray RP2.1 assay cannot reliably differentiate them. Coronavirus OC43 may cross-react with some isolates of Coronavirus HKU1. ??A dual positive result may be due to cross-reactivity or may indicate a co-infection. The detection and identification of specific viral and bacterial nucleic acids from individuals exhibiting signs and symptoms of a respiratory infection aids in the diagnosis of respiratory infection if used in conjunction with other clinical and epidemiological information. ??The results of this test should not be used as the sole basis for diagnosis, treatment, or other management decisions. ??Negative results in the setting of a respiratory illness may be due to infection with pathogens that are not detected by this test. ??Positive results do not rule out infection/co-infection with other organisms. ??The agent(s) detected by the FilmArray RP2.1 may not be the definite cause of disease. ?? Additional testing (lab, imaging, etc.) may be necessary when evaluating a patient with possible respiratory tract infection. The FilmArray RP2.1 assay has FDA clearance for testing of [employer] swabs. ?? The performance characteristics of this assay have been determined by [facility]. Current interpretive data was last revised on 2021. Nasopharyngeal 07/14/2022 4: 43 PM FENCE ERECTOR 07/14/2022 5:02 PM FENCE ERECTOR Narrative [facility] - 07/14/2022 5:57 PM FENCE ERECTOR Is the Patient experiencing symptoms consistent with COVID?->Yes Date of Symptom Onset->07/14/22 Reason for testing?->Bed placement or semi-private room Surveillance testing for transplant patient?->No Marko Thayer MD LAB MICROBIOLOGY - GENERAL ORDERABLES Final Result Performing Organization Address [facility] [place] [address] * (ABNORMAL) Phosphorus (07/14/2022 4:43 PM FENCE ERECTOR) Phosphorus, pl 2.0(L) 2.3 - 4.5 mg/dL [facility] Blood 07/14/2022 4:43 PM FENCE ERECTOR 07/14/2022 5:02 PM FENCE ERECTOR Marko Thayer MD LAB BLOOD ORDERABLES Final Result Performing Organization Address [facility] [place] [address] * Magnesium (07/14/2022 4:43 PM FENCE ERECTOR) Magnesium 1.9 1.4 - 2.5 mg/dL [facility] Blood 07/14/2022 4:43 PM FENCE ERECTOR 07/14/2022 5:02 PM FENCE ERECTOR us Marko Thayer MD LAB BLOOD ORDERABLES Final Result Performing Organization Address [facility] [place] [address] * (ABNORMAL) Comprehensive metabolic panel (07/14/2022 4:43 PM FENCE ERECTOR) Sodium 140 135 - 145 mmol/L [facility] Potassium, pl 3.6 3.3 - 4.9 mmol/L [facility] Chloride 105 97 - 110 mmol/L [facility] CO2 23 22 - 32 mmol/L [facility] Anion gap 12 2 - 15 mmol/L [facility] BUN 8 8 - 25 mg/dL [facility] Creatinine 0.75 0.40 - 1.00 mg/dL [facility] Glucose 109 70 - 199 mg/dL [facility] Comment: Interpretive Data Fasting glucose >/= 126 mg/dl is diagnostic for diabetes. ?? Fasting is defined as no caloric intake for at least 8 hours. Fasting glucose between 100 mg/dl to 125 mg/dl is diagnostic of prediabetes. In a patient with classic symptoms of hyperglycemia or hyperglycemic crisis, a random glucose >/= 200 mg/dl is diagnostic for diabetes. In the absence of unequivocal hyperglycemia, results should be confirmed by repeat testing. The classification and Diagnosis of Diabetes Diabetes Care 2021; 46: S19-S40. Current interpretive data was last revised 2022. Calcium 9.8 8.5 - 10.3 mg/dL [facility] Bilirubin, total 0.5 0.1 - 1.2 mg/dL [facility] Protein, pl 7.1 6.5 - 8.5 g/dL [facility] Albumin 4.4 3.5 - 5.0 g/dL [facility] Alk phos 41(L) 70 - 260 Units/L [facility] ALT 9 7 - 45 Units/L [facility] AST 25 10 - 45 Units/L [facility] Comment:Hemolyzed; results m ay be falsely elevated. Blood 07/14/2022 4:43 PM FENCE ERECTOR 07/14/2022 5:02 PM FENCE ERECTOR Marko Thayer MD LAB BLOOD ORDERABLES Final Result [facility] Department [place] [address] * CBC with auto differential (07/14/2022 4:43 PM FENCE ERECTOR) WBC 5.5 3.8 - 9.9 K/cumm [facility] Hgb 12.8 11.9 - 15.5 g/dL [facility] Hct 37.5 35.6 - 45.5 % [facility] Plt 188 150 - 400 K/cumm [facility] MPV 10.6 9.1 - 12.3 fL [facility] RBC 4.52 3.90 - 5.20 M/cumm [facility] MCV 83.0 81.3 - 96.4 fL [facility] MCH 28.3 27.1 - 33.3 pg [facility] MCHC 34.1 32.3 - 35.7 g/dL [facility] RDW CV 13.2 11.1 - 14.9 % [facility] RDW SD 39.8 35.7 - 48.1 fL [facility] NRBC abs 0.00 0.00 - 0.01 K/cumm [facility] Blood (Blood, Venous) 07/14/2022 4:43 PM FENCE ERECTOR 07/14/2022 5:02 PM FENCE ERECTOR Marko Thayer MD LAB BLOOD ORDERABLES Final Result Performing Organization Address City/[facility]/ZIP Co de Phone Number [facility] [place] [address] * Lipase (07/14/2022 4:43 PM FENCE ERECTOR) Lipase 69 10 - 99 Units/L [facility] Blood 07/14/2022 4:43 PM FENCE ERECTOR 07/14/2022 5:02 PM FENCE ERECTOR Marko Thayer MD LAB BLOOD ORDERABLES Final Result Performing Organization Address City/[facility]/ZIP Co de Phone Number [facility] [place] [address] documented in this encounter Visit Diagnoses Diagnosis Abdominal pain- Primary Abdominal pain, unspecified site Abdominal pain Abdominal pain, unspecified site documented in this encounter Administered Medications Inactive Administered Medications - up to 3 most recent administrations Medication Order MAR Action Action Date Dose Rate Site aluminum-magnesium hydroxide-simethicone & diphenhydramine 1:1 (MAGIC MOUTHWASH) oral suspension 10 mL 10 mL (0.234 mL/kg), oral, Once, On Tue07/15/22 at 1030, For 1 dose, Product contains aluminum hydroxide 20mg/mL- magnesium hydroxide 20mg/mL- simethicone 2mg/mL & diphenhydramine 1.25mg/mL in a 1:1 ratio Given 07/15/2022 10:31 AM FENCE ERECTOR 10 mL aprepitant (EMEND) capsule 125 mg 125 mg (2.92 mg/kg), oral, Once, On Tue07/15/22 at 1330, For 1 dose Given 07/15/2022 2:39 PM FENCE ERECTOR 125 mg aprepitant (EMEND) capsule 80 mg 80 mg (1.87 mg/kg), oral, Daily, First dose on Tue07/16/22 at 0900, For 2 doses Given 07/17/2022 8:06 AM FENCE ERECTOR 80 mg Given 07/16/2022 8:06 AM FENCE ERECTOR 80 mg calcium carbonate (TUMS) chewable tablet 1,000 mg 1,000 mg (23.4 mg/kg, rounded from 1,070 mg = 10 mg/kg of elemental calcium ? 42.8 kg Dosing weight), oral, Every 4 hours PRN, indigestion, 2nd line, Starting on Tue07/15/22 at 0300 Given 07/15/2022 12:02 PM FENCE ERECTOR 1,000 mg capsaicin (ZOSTRIX) 0.025 % cream 1 application 1 application (deactivated), topical, 4 times daily PRN, irritation, Starting on Tue07/15/22 at 0200, Apply to affected area: abdomen dextrose 5% and sodium chloride 0.9% with potassium chloride 20 mEq/L infusion (premix) 83 mL/hr, intravenous, Continuous, Starting on Tue07/14/22 at 2014 New Bag 07/16/2022 2:00 AM FENCE ERECTOR 83 mL/hr 83 mL/hr New Bag 07/15/2022 8:36 AM FENCE ERECTOR 83 mL/hr 83 mL/hr New Bag 07/14/2022 7:49 PM FENCE ERECTOR 83 mL/hr 83 mL/hr diphenhydrAMINE (BENADRYL) injection 50 mg 50 mg (1.17 mg/kg), intravenous, Administer over 15 Minutes, Once, On Tue07/15/22 at 0245, For 1 dose Given 07/15/2022 2:37 AM FENCE ERECTOR 50 mg diphenhydrAMINE (BENADRYL) tab/cap 25 mg 25 mg (0.584 mg/kg), oral, Every 6 hours PRN, other, nausea, Starting on Tue07/15/22 at 1805 Given 07/16/2022 3: 14 AM FENCE ERECTOR 25 mg Given 07/15/2022 6:41 PM FENCE ERECTOR 25 mg ketorolac (TORADOL) 30 mg/mL (1 mL) injection 21.3 mg 21.3 mg (0.498 mg/kg, rounded from 21.4 mg = 0.5 mg/kg ? 42.8 kg Dosing weight), intravenous, Administer over 5 Minutes, Every 6 hours, First dose (after last modification) on Tue07/14/22 at 2100, For 1 day Given 07/15/2022 8:37 AM FENCE ERECTOR 21.3 mg Given 07/15/2022 2:50 AM FENCE ERECTOR 21.3 mg Given 07/14/2022 9:13 PM FENCE ERECTOR 21.3 mg lansoprazole (PREVACID) capsule 30 mg 30 mg (0.701 mg/kg), oral, Daily, First dose on Tue07/14/22 at 1945, Capsules may be opened and contents mixed with food or beverage. Contents should not be crushed or chewed after mixing., Indications: refluxIndications:reflux Given 07/17/2022 8: 06 AM FENCE ERECTOR 30 mg Given 07/16/2022 8:06 AM FENCE ERECTOR 30 mg Given 07/15/2022 5:46 AM FENCE ERECTOR 30 mg morphine injection 2 mg 2 mg (0.0468 mg/kg), intravenous, Administer over 5 Minutes, Once, On Tue07/14/22 at 1703, For 1 dose Given 07/14/2022 5:09 PM FENCE ERECTOR 2 mg ondansetron (ZOFRAN) injection 4 mg 4 mg (0.0935 mg/kg), intravenous, Administer over 15 Minutes, Once, On Tue07/14/22 at 2330, For 1 dose Given 07/14/2022 11:06 PM FENCE ERECTOR 4 mg ondansetron (ZOFRAN) injection 4 mg 4 mg (0.0935 mg/kg), intravenous, Administer over 15 Minutes, Once, On Tue07/15/22 at 0500, For 1 dose Given 07/15/2022 5:00 AM FENCE ERECTOR 4 mg ondansetron ODT (ZOFRAN-ODT) disintegrating tablet 4 mg 4 mg (0.0937 mg/kg), oral, Once, On Tue07/14/22 at 1556, For 1 dose Given 07/14/2022 3:59 PM FENCE ERECTOR 4 mg ondansetron ODT (ZOFRAN-ODT) disintegrating tablet 4 mg 4 mg (0.0935 mg/kg), oral, Every 6 hours PRN, nausea, vomiting, 1st line for nausea/vomiting, Starting on Tue07/14/22 at 2200 Given 07/16/2022 1:58 AM FENCE ERECTOR 4 mg Given 07/14/2022 9:52 PM FENCE ERECTOR 4 mg polyethylene glycol (MIRALAX) packet 17 g 17 g, oral, Daily, First dose on Tue07/14/22 at 1945, Indications: constipationIndications:constipation Given 07/16/2022 8:06 AM FENCE ERECTOR 17 g Given 07/15/2022 8:37 AM FENCE ERECTOR 17 g scopolamine patch 72 hour 1 patch 1 patch, topical, Administer over 72 Hours, Every 72 hours, First dose on Tue07/16/22 at 0800, For 29 days Medication Applied 07/16/2022 8:05 AM FENCE ERECTOR 1 patch External Ear sodium chloride 0.9% bolus 500 mL 500 mL (11.7 mL/kg), intravenous, Once, On Tue07/15/22 at 0015, For 1 dose New Bag 07/14/2022 11:48 PM FENCE ERECTOR 500 mL sodium chloride 0.9% bolus 854 mL 854 mL (20 mL/kg ? 42.7 kg), intravenous, Once, On Tue07/14/22 at 1633, For 1 dose New Bag 07/14/2022 4:56 PM FENCE ERECTOR 854 mL documented in this encounter Historical Medications * This list may reflect changes made after this encounter. medroxyPROGESTER one 150 mg/mL injection Inject 150 mg into the muscle as instructed every 3 (three) months 06/17/2022 famotidine (PEPCID) 20 mg tablet Take 20 mg by mouth 2 (two) times a day 07/13/2022 added in this encounter Active and Recently Administered Medications Times are shown in FENCE ERECTOR. Scheduled Medication Order 07/15/2022 07/16/2022 07/17/2022 aluminum-magnesium hydroxide-simethicone & diphenhydramine 1:1 (MAGIC MOUTHWASH) oral suspension 10 mL (COMPLETED) 10 mL (0.234 mL/kg), oral, Once, On Tue07/15/22 at 1030, For 1 dose, Product contains aluminum hydroxide 20mg/mL- magnesium hydroxide 20mg/mL- simethicone 2mg/mL & diphenhydramine 1.25mg/mL in a 1:1 ratio 1031 (Given - Provider: Linette Morgan RN) aprepitant (EMEND) capsule 125 mg (COMPLETED)(Linked Group 1) 125 mg (2.92 mg/kg), oral, Once, On Tue07/15/22 at 1330, For 1 dose 1439 (Given - Provider: Linette Morgan, MERA) aprepitant (EMEND) capsule 80 mg (COMPLETED)(Linked Group 1) 80 mg (1.87 mg/kg), oral, Daily, First dose on Tue07/16/22 at 0900, For 2 doses 0806 (Given - Provider: Honey Mo RN) 0806 (Given - Provider: Linette Morgan, MERA) diphenhydrAMINE (BENADRYL) injection 50 mg (COMPLETED) 50 mg (1.17 mg/kg), intravenous, Administer over 15 Minutes, Once, On Tue07/15/22 at 0245, For 1 dose 0237 (Given - Provider: Jabier Leon, MERA) ketorolac (TORADOL) 30 mg/mL (1 mL) injection 21.3 mg () 21.3 mg (0.498 mg/kg, rounded from 21.4 mg = 0.5 mg/kg ? 42.8 kg Dosing weight), intravenous, Administer over 5 Minutes, Every 6 hours, First dose (after last modification) on Tue07/14/22 at 2100, For 1 day 0250 (Given - Provider: Jabier Leon, MERA)0837 (Given - Provider: Linette Morgan RN)1500 (Due) lansoprazole (PREVACID) capsule 30 mg 30 mg (0.701 mg/kg), oral, Daily, First dose on Tue07/14/22 at 1945, Capsules may be opened and contents mixed with food or beverage. Contents should not be crushed or chewed after mixing., Indications: reflux 0546 (Given - Provider: Lisa Moore RN) 0806 (Given - Provider: Honey Mo RN) 0806 (Given - Provider: Linette Morgan RN) ondansetron (ZOFRAN) injection 4 mg (COMPLETED) 4 mg (0.0935 mg/kg), intravenous, Administer over 15 Minutes, Once, On Tue07/15/22 at 0500, For 1 dose 0500 (Given - Provider: Lisa Moore RN) polyethylene glycol (MIRALAX) packet 17 g 17 g, oral, Daily, First dose on Tue07/14/22 at 1945, Indications: constipation 0837 (Given - Provider: Linette Morgan RN) 0806 (Given - Provider: Honey Mo RN) 0900 (Due) scopolamine patch 72 hour 1 patch 1 patch, topical, Administer over 72 Hours, Every 72 hours, First dose on Tue07/16/22 at 0800, For 29 days 0805 (Medication Applied - Provider: Honey Mo RN - Comment: right) 1300 (Due: Medication Removed - Provider: Automatic Discharge Provider - Comment: Time automatically adjusted from order being discontinued) Continuous Medication Order 07/15/2022 07/16/2022 07/17/2022 dextrose 5% and sodium chloride 0.9% with potassium chloride 20 mEq/L infusion (premix) (CANCELED) 83 mL/hr, intravenous, Continuous, Starting on Tue07/14/22 at 2014 0836 (New Bag - Provider: Linette Morgan RN) 0200 (New Bag - Provider: Lisa Moore RN)0849 (Due: Stopped - Provider: Bennett Camarena MD) PRN Medication Order 07/15/2022 07/16/2022 07/17/2022 acetaminophen (TYLENOL) tablet 650 mg 650 mg (15.2 mg/kg, rounded from 640.5 mg = 15 mg/kg ? 42.7 kg), oral, Every 6 hours PRN, 1st line for pain, fever greater than 38.5 C, Starting on Tue07/14/22 at 1847, Maximum dose = 650 mg , Indications: Fever, Pain calcium carbonate (TUMS) chewable tablet 1,000 mg (CANCELED) 1,000 mg (23.4 mg/kg, rounded from 1,070 mg = 10 mg/kg of elemental calcium ? 42.8 kg Dosing weight), oral, Every 4 hours PRN, indigestion, 2nd line, Starting on Tue07/15/22 at 0300 0940 (Not Given - Provider: Linette Morgan RN - Reason: Patient/family refused)1202 (Given - Provider: Linette Morgan, MERA) capsaicin (ZOSTRIX) 0.025 % cream 1 application 1 application (deactivated), topical, 4 times daily PRN, irritation, Starting on Tue07/15/22 at 0200, Apply to affected area: abdomen diphenhydrAMINE (BENADRYL) tab/cap 25 mg 25 mg (0.584 mg/kg), oral, Every 6 hours PRN, other, nausea, Starting on Tue07/15/22 at 1805 1841 (Given - Provider: Linette Morgan RN) 0314 (Given - Provider: Lisa Moore, MERA) ondansetron ODT (ZOFRAN-ODT) disintegrating tablet 4 mg 4 mg (0.0935 mg/kg), oral, Every 6 hours PRN, nausea, vomiting, 1st line for nausea/vomiting, Starting on Tue07/14/22 at 2200 0158 (Given - Provider: Lisa Moore, MERA) Linked Groups Order Group 1: aprepitant (EMEND) capsule 125 mg (COMPLETED)Jump to med 125 mg (2.92 mg/kg), oral, Once, On Tue07/15/22 at 1330, For 1 dose Followed by aprepitant (EMEND) capsule 80 mg (COMPLETED)Jump to med 80 mg (1.87 mg/kg), oral, Daily, First dose on Tue07/16/22 at 0900, For 2 doses documented in this encounter Orders Medications Ordered That Earle ht Not Have Been Administered Count Last Ordered Date First Ordered Date aprepitant (EMEND) capsule 125 mg 1 023 bismuth subsalicylate (PEPTO BISMOL) 262 mg/15 mL oral suspension 10 mL 1 07/15/2022 calcium carbonate (TUMS) mayela wable tablet 1,000 mg 1 07/15/2022 capsaicin (ZOSTRIX) 0.025 % cream 1 application 1 07/15/2022 diphenhydrAMINE (BENADRYL) injection 50 mg 1 07/15/2022 acetaminophen (TYLENOL) tablet 650 mg 1 diphenhydrAMINE (BENADRYL) tab/cap 25 mg 1 07/14/2022 ibuprofen (ADVIL,MOTRIN) tablet 426 mg 1 ketorolac (TORADOL) 30 mg/mL (1 mL) injection 30 mg 1 07/14/2022 lidocaine 1% buffered injection 0.1 mL 1 ondansetron (ZOFRAN) injection 4 mg 1 07/14 ondansetron (ZOFRAN) injection 6.4 mg 1 prochlorperazine (COMPAZINE) tablet 5 mg 1 07/14/2022 scopolamine patch 72 hour 1 patch 1 023 sodium chloride 0.9% bolus 854 mL 1 023 Diet Count Last Ordered Date First Orde red Date PEDIATRIC DISCHARGE DIET 1 07/17/2022 Nursing Count Last Ordered Date First Orde red Date DISCHARGE ACTIVITY 1 07/17/2022 DISCHARGE CALL PROVIDER 1 07/17/2022 DISCHARGE INSTRUCTIONS 1 07/16/2022 FOLLOW UP WITH ESTABLISHED PROVIDER 1 07/16 MEASURE HEIGHT AND LENGTH 1 07/14/2022 WEIGH PATIENT 1 07/14/2022 IV Count Last Ordered Date First Orde red Date INSERT PERIPHERAL IV 1 07/14/2022 Admission Count Last Ordered Date First Orde red Date ADMIT TO INPATIENT 2 07/16/2022 3 INITIATE OBSERVATION SERVICES 1 07/15/2022 Transfer Count Last Ordered Date First Orde red Date ED TO FLOOR BED REQUEST 1 07/14/2022 Discharge Count Last Ordered Date First Orde red Date DISCHARGE PATIENT 1 07/17/2022 documented in this encounter Additional Health Concerns Infection Onset Date Last Indicated Resolved Time COVID: Suspected 07/14/2022 07/14/2022 07/14/2022 5:58 PM FENCE ERECTOR documented as of this encounter Care Teams Fitness Centre Manager Relationship Specialty Start Date End Date Basim Lynn MD [address] [place] [id number] PCP - General Pediatrics 07/04/22 No, Physician 07/03/22 documented as of this encounter
--- OUTSIDE RECORDS SUMMARY | 2024-07-02 06:53 | XMS_ITS | Encounter Summary ---
Author Organization [facility] Healthcare Address [address] [place] [address] Care Team Providers Care Heel Buffer Name Role Phone Rita Lynn MD Primary Care Provider [phone] No, Physician Unavailable Reason for Visit * Reason Onset Date Comments Admit Notification 07/14/2022 Encounter Details Date Type Department Care Team (Late st Contact Info) Description 07/14/2022 Telephone [facility] [address] [place] [address] Miscellaneous, Not In File Admit Notification Social History Tobacco Use Types Packs/Day Years Used Date Smoking Tobacco: Some Days Vaping Comments No Sex and Gender Information Value Date Recorded Sex Assigned at Not on file Legal Sex Female 7:29 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 Gender Identity Not on file Sexual Orientation Not on file documented as of this encounter Miscellaneous Notes * Telephone Encounter - Samantha Vega - 07/14/2022 8:10 PM CST Admission Notification PATIENT NAME: Lorraine Pacheco PATIENT : 2005 PATIENT PCP: Rita Lynn MD HOSPITAL: [facility] ROOM NUMBER: [id number] -[id number] DIAGNOSIS: Abdominal Pain PROVIDER CONTACTED: Faxed to office EXCHANGE ACTION TAKEN: Faxed only FACTURING DIRECTOR documented in this encounter Plan of Treatment Not on file documented as of this encounter Visit Diagnoses Not on filedocumented in this encounter Additional Health Concerns Infection Onset Date Last Indicated Resolved Time COVID: Suspected 07/14/2022 07/14/2022 07/14/2022 5:58 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 documented as of this encounter Care Teams Heel Buffer Relationship Specialty Start Date End Date Rita Lynn MD [address] [place] [id number] PCP - General Pediatrics 07/04/22 No, Physician 07/03/22 documented as of this encounter
--- OUTSIDE RECORDS SUMMARY | 2024-07-02 06:53 | XMS_ITS | Encounter Summary ---
Author Organization [facility] Address [address] [place] [address] Care Team Providers Care Pediatrician Active Practice Name Role Phone Unavailable Primary Care Provider Unavailabl e Encounter Details Date Type Department Care Team (Late st Contact Info) Description 04/29/2020 Lab Requisition [facility] Community Testing [facility] [address] [place] [address] [place] [address] [address] [place] [address] Social History Tobacco Use Types Packs/Day Years Used Date Smoking Tobacco: Never Assessed Comments Unknown Sex and Gender Information Value Date Recorded Sex Assigned at Not on file Legal Sex Female 1:11 PM BOOK CANVASSER Gender Identity Not on file Sexual Orientation Not on file documented as of this encounter Plan of Treatment Not on file documented as of this encounter Procedures Procedure Name Priority Date/Time Associated Diagnosis Comments SARS-COV-2 PCR [facility] ONLY Routine 04/29/2020 2:07 PM BOOK CANVASSER documented in this encounter Visit Diagnoses Not on filedocumented in this encounter
--- OUTSIDE RECORDS SUMMARY | 2024-07-02 06:53 | XMS_ITS | Data Portability ---
Author Organization [facility] Aundrea Miller Address [address] [place] [address] Care Team Providers Care Peach Grower Name Role Phone ERICH LYNNA Primary Care Provider [phone] Assessment Encounter Date Assessment Date Assessment LastModified by Organization Details LastModified Time 05/25/2021 05/25/2021 sports physcla, h/o depression rpatney Not available 05/25/2021 11:46:57 04/06/2022 04/06/2022 well child rpatney Not available 12:42:22 06/24/2022 06/24/2022 ER follow up for influenza rpatney Not available 06/24/2022 18:25:41 07/26/2022 07/26/2022 ER follow up, Depo shot for contraception , behavior concerns rpatney Not available 07/26/2022 11:20:41 10/22/2022 10/22/2022 depo shot rpatney Not available 10/2022 12:21:45 Plan of Treatment Reminders Order Date Submit Date Provider Last Modified By Organization Details Last Modified Time Details Appointments None recorded . Lab CT + NG + TV, DNA, urine/[facility] [address], [place], [address], 22:10:41 HIV (1+2) Ab, rapid, unspecif ied specimen 2021 022 NATALYA In-Office Order, Internal Use Only DO Not Attach Compendium DO Not Attach Compendium, Do Not Delete/merge, [id number] 2 15:31:22 pregnanc y test, urine 2021 022 NATALYA In-Office Order, Internal Use Only DO Not Attach Compendium DO Not Attach Compendium, Do Not Delete/merge, [id number] 2 12:31:36 pregnanc y test, urine 2022 023 NATALYA In-Office Order, Internal Use Only DO Not Attach Compendium DO Not Attach Compendium, Do Not Delete/merge, [id number] 3 11:24:20 chlamydi a trachoma tis + neisseri a gonorrho eae + trichomo madelin vaginali s DNA panel, MINDA+prob e, unspecif ied specimen 2022 023 [facility], [address] [place] [address], [address], 3 06:13:56 Referral psychiat rist referral 2020 021 [email or web address] Not available 12:04:40 counseli ng referral 2020 021 [email or web address] Not available 12:04:40 intensiv e outpatie nt therapy program referral 2020 021 [email or web address] Not available 12:04:40 counseli ng referral [address] [facility], [address] [place] [address], [address], 3 13:03:42 Procedures None recorded . Surgeries None recorded . Imaging None recorded . Medication Orders Depo-Pro vera 150 mg/mL intramus cular syringe 2021 022 [id number], [address] [place], [place], [id number], 2 13:18:20 Depo-Pro vera 150 mg/mL intramus cular suspensi on 2022 023 [id number], [address], [place], [place], [phone], 11:20:28 Depo-Pro vera 150 mg/mL intramus cular suspensi on 2022 023 [email or web address] Not available 12:36:44 Patient TargetsNo targets recorded. Patient Instructions Encounter Date Encounter Id Patient Instructions Last Modified By Organization Details Last Modified Time 05/25/2021 [id number] visual acuity* rpatney Not available 05/25/2021 11:49:12 to get COVID vaccine today rpatney Not available 05/25/2021 11:49:22 call with concenr rpatney Not availabl e 05/25/2021 12:05:18 04/06/2022 [id number] Learning About How to Make Healthy Changes in Your Child's Diet rpatney Not available 04/06/2022 12:44:07 Considering More Physical Activity for Your Child rpatney Not available 04/06/2022 12:44:07 Well Visit, Teens: Care Instructions rpatney Not available 04/06/2022 12:44:08 declines COVID shot rpatney Not available 04/06/2022 12:44:15 discussed safety , nutirtion, control rpatney Not available 04/06/2022 12:44:40 06/24/2022 [id number] call with concerns rpatney Not available 06/24/2022 18:25:55 07/26/2022 [id number] Learning About How to Make Healthy Changes in Your Child's Diet rpatney Not available 07/26/2022 11:20:11 Considering More Physical Activity for Your Child rpatney Not available 07/26/2022 11:20:11 call with concerns, rpatney Not available 07/26/2022 11:20:18 10/22/2022 [id number] Learning About How to Make Healthy Changes in Your Child's Diet rpatney Not available 10/22/2022 12:24:38 Considering More Physical Activity for Your Child rpatney Not available 10/22/2022 12:24:38 call with concerns, discused use of condoms rpatney Not available 10/22/2022 12:24:56 Reason for Referral Psychiatrist Referral for De pressive disorder Referring Physician: Basim Lynn [facility], Encounter Date: 05/25/2021 Counseling Referral for Depr essive disorder Referring Physician: Basim Lynn [facility], Encounter Date: 05/25/2021 Intensive Outpatient Therapy Program Referral for Depressive disorder Referring Physician: Basim Lynn [facility], Encounter Date: 05/25/2021 Counseling Referral for Prob jc behavior Referring Physician: Basim Lynn [facility], Encounter Date: 07/26/2022 Results Created Date Observation Date Name Description Value Unit Range Abnormal Flag Note LastModifiedBy Organization Detail LastModifiedTime 05/25/20 21 05/25/2021 visua l acuit y* R Eye Uncorrected 20/10 Not Available In-O ffice Order Internal Use Only DO Not Attach Compendium DO Not Attach Compendium, Do Not Delete/merge, [id number] 05/25/2021 11:05:22 05/25/20 21 05/25/2021 visua l acuit y* L Eye Uncorrected 20/10 Not Available In-O ffice Order Internal Use Only DO Not Attach Compendium DO Not Attach Compendium, Do Not Delete/merge, [id number] 05/25/2021 11:05:22 04/06/20 22 04/08/[address]/NG /TV chlamydia by MINDA Negati ve negati ve Not Available [facility] (Lab) [address] [place], [address], 04/08/2022 22:10:41 04/06/20 22 04/08/[address]/NG /TV gonococcus by MINDA Negati ve negati ve Not Available [facility] (Lab) [address] [place], [address], 04/08/2022 22:10:41 04/06/20 22 04/08/[address]/NG /TV trich vag by MINDA Negati ve negati ve Not Available [facility] (Lab) [address] [place], [address], 04/08/2022 22:10:41 07/26/19 23 07/27/2022 CT, NG, TRICH VAG BY MINDA chlamydia by MINDA Negati ve negati ve Not Available [facility] ([facility]) [address] [place], [address], 07/28/2022 06:13:56 07/26/19 23 07/27/2022 CT, NG, TRICH VAG BY MINDA gonococcus by MINDA Negati ve negati ve Not Available [facility] ([facility]) [address] [place], [address], 07/28/2022 06:13:56 07/26/19 23 07/27/2022 CT, NG, TRICH VAG BY MINDA trich vag by MINDA Negati ve negati ve Not Available [facility] ([facility]) [address] [place], [address], 07/28/2022 06:13:56 07/26/19 23 07/26/2022 pregn desiree test, urine HCG negati ve Not Available In-Office Order Internal Use Only DO Not Attach Compendium DO Not Attach Compendium, Do Not Delete/merge, [id number] 07/26/2022 11:20:02 Result Notes None recorded. Problems Name Problem SNOMED Code Status Onset Date Resolution Date Notes Provider Name and Address Organization Details Recorded Time Sinusitis 73114178 Active JANET Stern - SIRadha 6 16:15:31 Conjunctivitis 1232846 Active Lavonne pereyra, JANET - SIRadha 6 16:15:31 Problem Notes None recorded. Medical Equipment None Reported. Allergies No known drug allergies Medications Name Sig Start Date Stop Date Status Note LastModified by Organization Details LastModified Time Compro 25 mg rectal suppository active Not Available Not Available Not Available ondansetron HCl 4 mg tablet TAKE 1 TABLET BY MOUTH EVERY 8 HOURS NEEDED 04/06 completed Not Available Not Available Not Available prednisone 20 mg tablet TAKE 3 TABLETS BY MOUTH EVERY DAY FOR 5 DAYS 07/26 completed Not Available Not Available Not Available acetaminoph en 500 mg tablet 07/26 completed Not Available Not Available Not Available famotidine 20 mg tablet TAKE 1 TABLET BY MOUTH TWICE DAILY. 07/26 completed Not Available Not Available Not Available Depo-Power Plant Installer a 150 mg/mL intramuscul ar suspension Inject 1 mL every 3 months by intramusc ular route. 2022 active Not Available Not Available Not Avai lable benzonatate 100 mg capsule TAKE 1 CAPSULE BY MOUTH EVERY 8 HOURS NEEDED 07/26 completed Not Available Not Available Not Available pantoprazol e 40 mg tablet,derrick yed release 07/26 completed Not Available Not Available Not Available polymyxin B sulfate 10,000 unit-trimet hoprim 1 mg/mL eye drops Instill by ophthalmi c route, 2 drops each eye tid for 7 days 12/18 completed Not Available Not Available Not Available amoxicillin 400 mg/5 mL oral suspension Take by oral route, 7.5 ml bid for 10 days 12/18 completed Not Available Not Available Not Available mupirocin 2 % topical ointment Apply 1 applicati on twice a day by topical route as needed for 7 days. 12/18 completed Not Available Not Available Not Available ergocalcife rol (vitamin D2) 1,250 mcg (50,000 unit) capsule active Not Available Not Available Not Available scopolamine 1 mg over 3 days transdermal patch active Not Available Not Available Not Available ondansetron 4 mg disintegrat ing tablet DISSOLVE ONE TABLET BY MOUTH EVERY 6 HOURS NEEDED FOR NAUSEA/VO MITING 07/26 completed Not Available Not Available Not Available metoclopram estefania 10 mg tablet 07/26 completed Not Available Not Available Not Available medroxyprog esterone 150 mg/mL intramuscul ar syringe ADMINISTE R 1 ML IN THE MUSCLE EVERY 3 MONTHS active Not Available Not Available No t Available nitrofurant oin monohydrate /macrocryst als 100 mg capsule 04/06 completed Not Available Not Available Not Available Vitals Date Recorded Body height Body mass index (BMI) Percentile per age and sex Body mass index (BMI) Body weight Body temperature Systolic blood pressure Diastolic blood pressure Provider Name and Address Organization Details Last Updated DateTime 1 169.55 cm 2 % 16.6 kg/m2 82906.9 g 96.8 [degF] 100 mm[Hg] 58 mm[Hg] Johanna Rowe MA [facility] 1 11:04:41 Date Recorded Body height Body mass index (BMI) Body mass index (BMI) Percentile per age and sex Body weight Body temperature Systolic blood pressure Diastolic blood pressure Provider Name and Address Organization Details Last Updated DateTime 2 170.81 cm 16.5 kg/m2 1 % 71123.1 9 g 97.9 [degF] 100 mm[Hg] 58 mm[Hg] Fernanda Munson MA [facility] 2 12:19:20 Date Recorded Body height Body mass index (BMI) Percentile per age and sex Body mass index (BMI) Body weight Body temperature Systolic blood pressure Diastolic blood pressure Provider Name and Address Organization Details Last Updated DateTime 3 171.45 cm 1 % 15.2 kg/m2 32160.8 5 g 98.2 [degF] 100 mm[Hg] 60 mm[Hg] Fernanda Munson MA [facility] 3 11:10:30 Date Recorded Body height Body mass index (BMI) Percentile per age and sex Body mass index (BMI) Body weight Oxygen saturation Oxygen saturation in Arterial blood by Pulse oximetry Heart rate Body temperature Systolic blood pressure Diastolic blood pressure Provider Name and Address Organization Details Last Updated DateTime 3 171.45 cm 3 % 17.3 kg/m2 13674.7 5 g 100 % 100 % 74 /min 98.1 [degF] 122 mm[Hg] 76 mm[Hg] Fernanda Munson MA [facility] 3 12:18:53 Social History Question Answer Notes LastModified by Organizat ion Details LastModified Time Tobacco Smoking Status Never Smoker Basim Lynn MD Attn: Accounting,[address] [place], [address], [facility] 03/22/2018 12:47:53 Animal Exposure? No Informat ion not available 03/22/2018 Are You Or Have You Been Involved With Bullying? No Information not available 03/22/2018 What Is Your Level Of Caffeine Consumption? None Information not available 03/22/2018 What Type Of Diet Are You Following? REGULAR Information not available 03/22/2018 Have There Been Any Changes To Your Family Or Social Situation? No Information not available 03/22/2018 Are There Any Guns Present In Your Home? No Information not available 03/22/2018 Car Seat Type Or Seat Belt? Seat Belt Information not available 09/05/2015 Riding In Car Front Seat? Yes [email or web address] Information not available 09/05/2015 What Was The Date Of Your Most Recent Tobacco Screening? 07/26/2022 Information not available 07/26/2022 Pool Exposure No Information not available 03/22/2018 Are You Passively Exposed To Smoke? No [email or web address] Information not available 09/05/2015 How Much Tobacco Do You Smoke? No Information not available 03/22/2018 Has Tobacco Cessation Counseling Been Provided? No Information not available 07/26/2022 On What Date Was Tobacco Cessation Counseling Provided? 04/06/2022 Information not available 04/06/2022 Year In School 8 Informatio n not available 03/22/2018 Do You Or Have You Ever Used Any Other Forms Of Tobacco Or Nicotine? No Information not available 04/06/2022 Sex: Unknown Functional Status Question Answer Note LastModified by Organization D etails LastModified Time What is your exercise level? Moderate Information not available 03/22/2018 Mental Status None recorded. Family History Nothing Reported. Medical History Condition Response Blood Diseases N Ear or Hearing Problems N Thyroid Problems N Depression N Developmental or Behavioral Disorders N Skin Problems N Premature N Anemia N Constipation N Diabetes N Anxiety Disorder N Muscle, Joint, or Bone Problems N Bedwetting N Vision or Eye Problems N Heart Problems/Murmur N Seizures/Epilepsy N Head Injury/Concussion N Cancer N Asthma N Allergies N ADHD N Bladder or Kidney Problems N Headaches N Chicken Pox N Autism Spectrum Disorder (ASD) N Gynecological History Statement/Question Response Flow Light STIs/STDs N HPV Vaccine Y Duration of Flow (days) 2 Age at Menarche 11 Current Control Method None Frequency of Cycle (Q days) Sexually Active? N Menses Monthly N Date of Last Pap Smear Sexual Problems? N LMP Approximate Desired Control Method Hormonal In jection Obstetrics History GPAL:G 0 P 0 0 0 0 Immunizations Vaccine Type Date Status Note Provider Nam e and Address Organization Details Recorded Time Tdap 6 completed Not Available [facility] 07/07/2019 02:31:10 meningococcal MCV4P 6 completed Not Available [facility] 07/07/2019 02:29:57 HPV9 6 completed Not Available [facility] 07/07/2019 02:40:21 Hep A, ped/adol, 2 dose 6 completed Not Available [facility] 07/07/2019 02:40:26 HPV9 8 completed Not Available [facility] 07/07/2019 02:36:23 Influenza, split virus, quadrivalent, preservative 8 completed Not Available [facility] 07/07/2019 02:36:24 meningococcal B, OMV 1 completed Johanna Rowe [place], [place] [facility] 03/26/2021 11:30:18 meningococcal MCV4P 1 completed BRII Bell, [place] - [facility] 03/26/2021 11:30:18 Influenza, live, quadrivalent, intranasal 1 completed Johanna Rowe [place], [place] [facility] 06/15/2021 13:46:53 meningococcal B, OMV 1 completed Johanna Rowe [place] [facility] 06/15/2021 13:46:53 COVID-19, mRNA, LNP-S, PF, 30 mcg/0.3 mL dose 1 completed BRII [place], [place] [facility] 05/25/2021 15:31:14 Influenza, split virus, quadrivalent, PF 2 completed Fernanda Munson [place], [place] [facility] 04/07/2022 10:26:49 DTP 5 completed Not Available [facility] 07/18/2022 01:03:36 DTP 5 completed Not Available [facility] 07/18/2022 01:03:36 DTP 5 completed Not Available [facility] 07/18/2022 01:03:36 DTP 6 completed Not Available [facility] 07/18/2022 01:03:36 DTP 9 completed Not Available [facility] 07/18/2022 01:03:36 Hib, unspecified formulation 5 completed Not Available [facility] 07/18/2022 01:03:36 Hib, unspecified formulation 5 completed Not Available [facility] 07/18/2022 01:03:36 Hib, unspecified formulation 6 completed Not Available [facility] 07/18/2022 01:03:36 Hep A, ped/adol, 2 dose 0 completed Not Available [facility] 07/18/2022 01:03:36 Hep B, unspecified formulation 5 completed Not Available [facility] 07/18/2022 01:03:36 Hep B, unspecified formulation 5 completed Not Available [facility] 07/18/2022 01:03:36 Hep B, unspecified formulation 5 completed Not Available [facility] 07/18/2022 01:03:36 Hep B, unspecified formulation 5 completed Not Available [facility] 07/18/2022 01:03:36 influenza, unspecified formulation 5 completed Not Available [facility] 07/18/2022 01:03:36 influenza, unspecified formulation 4 completed Not Available [facility] 07/18/2022 01:03:36 MMR 6 completed Not Available [facility] 07/18/2022 01:03:36 MMR 9 completed Not Available [facility] 07/18/2022 01:03:36 pneumococcal, unspecified formulation 5 completed Not Available [facility] 07/18/2022 01:03:36 pneumococcal, unspecified formulation 5 completed Not Available [facility] 07/18/2022 01:03:36 pneumococcal, unspecified formulation 5 completed Not Available [facility] 07/18/2022 01:03:36 pneumococcal, unspecified formulation 6 completed Not Available [facility] 07/18/2022 01:03:36 IPV 5 completed Not Available [facility] 07/18/2022 01:03:36 IPV 5 completed Not Available [facility] 07/18/2022 01:03:36 IPV 5 completed Not Available [facility] 07/18/2022 01:03:36 IPV 9 completed Not Available [facility] 07/18/2022 01:03:36 varicella 6 completed Not Available [facility] 07/18/2022 01:03:36 varicella 0 completed Not Available [facility] 07/18/2022 01:03:36 Past Encounters Encounter ID Performer Location Encounter Start Date Encounter Closed Date Diagnosis/Indication Diagnosis SNOMED-CT Code Diagnosis ICD10 Code Diagnosis Note [id number] Basim Lynn MD [address] [address] 09/05/2015 10:58:01 09/15/2015 15:41:50 Sinusitis 99752482 J32.9 Conjunctivitis 3896774 H 10.9 [id number] Basim Lynn MD [address] [address] 12/10/2015 15:45:11 12/16/2015 03:47:53 Well child 571756007 Z00.420 [id number] Bsaim Lynn MD [address] [address] 03/22/2018 11:49:44 03/23/2018 10:07:40 Well child 757870475 Z00.129 Diet education 04201311 Z71.3 Exercises education, guidance, and counseling 704708772 Z71.82 [id number] Basim Lynn MD [address] [address] 02/26/2019 10:00:47 02/26/2019 17:04:44 Well child 616078653 Z00.129 Diet education 51703067 Z71.3 Exercises education, guidance, and counseling 660243969 Z71.82 [id number] Basim Lynn MD [address] [address] 08/14/2019 10:06:57 08/15/2019 10:33:47 Well child 965982536 Z00.129 Diet education 64850444 Z71.3 Exercises education, guidance, and counseling 089297982 Z71.82 [id number] Basim Lynn MD [address] [address] 08/17/2019 11:28:26 08/17/2019 15:42:10 Laceration of forehead 226223624 S01.81XD [id number] Basim Lynn MD [address] [address] 08/31/2019 10:55:42 09/04/2019 11:50:45 Headache 92482091 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 [id number] Basim Lynn MD [address] [address] 09/11/2019 14:24:29 09/12/2019 10:32:42 Headache 23347908 R51 [id number] [facility] (HELP DESK TECHNICIAN) [address] [place] [address] 12/19/2019 16:06:42 12/20/2019 09:39:30 Contraception care 395763104 Z30.40 -counseled on contracept ion methods with emphasis on mechanism of action, efficacy and ease of use; emphasis on LARC method-lakeisha ires DepoProver a-UPT & STI testing deferred, not yet sexually active-Rx for Depo issued, to return for administra tion [id number] [facility] (HELP DESK TECHNICIAN) [address] [place] [address] 12/24/2019 12:14:31 12/25/2019 04:46:23 Contraception care 903381588 Z30.40 -previousl y counseled on contracept ion methods with emphasis on mechanism of action, efficacy and ease of use; desires DepoProver a-denies sexual debut-UPT( -) today-Depo Provera administer ed-RTO 3mo for next dose [id number] [facility] (HELP DESK TECHNICIAN) [address] [place] [address] 03/10/2020 11:41:49 03/19/2020 08:51:35 Contraception care 841359173 Z30.40 -toleratin g method well, amenorrhei c -denies sexual debut-UPT( -) today-Depo Provera administer ed-RTO 3mo for next dose [id number] Basim Lynn MD [address] [address] 03/13/2020 11:46:49 03/14/2020 07:05:17 Exposure to SARS-CoV-2 939682367 Z20.039 [id number] Basim Lynn MD [address] [address] 05/02/2020 10:09:53 05/05/2020 13:47:46 Generalized aches and pains 85113924 R52 [id number] Basim Lynn MD [address] [address] 03/13/2021 12:22:43 03/17/2021 16:53:18 Acute urinary tract infection 767298680 N39.0 Well child visit 0546140 09 Z76.2 Diet education 55047158 Z71.3 Exercises education, guidance, and counseling 184960008 Z71.82 [id number] Basim Lynn MD [address] [address] 05/25/2021 10:17:52 05/26/2021 11:49:04 History and physical examination, [facility] 08872515 Z02.0 Depressive disorder 3548 9007 F32.A [id number] Johanna Rowe MA [address] [address] 05/25/2021 11:51:51 05/26/2021 11:59:10 Administration of SARS-CoV-2 mRNA vaccine 8862469098 Z23 [id number] Basim Lynn MD [address] [address] 04/06/2022 11:05:09 04/07/2022 09:16:59 Well child visit 520034640 Z76.2 Diet education 87556527 Z71.3 Exercises education, guidance, and counseling 459219533 Z71.82 [id number] Basim Lynn MD [address] [address] 06/24/2022 12:55:54 06/25/2022 10:33:36 Influenza caused by Influenza A virus 940102244 J09.X2 [id number] Basim Lynn MD [address] [address] 07/26/2022 10:02:43 07/29/2022 15:59:05 Diet education 31189768 Z71.3 Exercises education, guidance, and counseling 960976809 Z71.82 Contraception care 62040 5005 Z30.40 Problem behavior 2152425 01 F91.9 [id number] Basim Lynn MD [address] [address] 10/22/2022 11:31:44 10/25/2022 11:18:52 Long-term current use of hormonal contraceptive 3337009057 60164 Z79.3 Diet education 44869557 Z71.3 Exercises education, guidance, and counseling 565564375 Z71.82 Health Concerns Section Related Observation LastModified by Organization Detai ls LastModified Time None Recorded Concern Status LastModified by Organization Details LastModified Time None Recorded Advance Directives Directive None Recorded Payers Encounter Date Sequence Insurance Name Policy Number Policy Gonzalez Covered Member ID Gonzalez Member ID Guarantor Name 05/25/2021 1 [facility] (MEDICAID HMO) [id number] Lorraine Pacheco [id number] Chinell Bairon-Pacheco 04/06/2022 1 [facility] (MEDICAID HMO) [id number] Lorraine Pacheco [id number] Chinell Bairon-Pacheco 06/24/2022 1 [facility] (MEDICAID HMO) [id number] Lorraine Pacheco [id number] Chinell Bairon-Pacheco 07/26/2022 1 [facility] (MEDICAID HMO) [id number] 0003 Lorraine Pacheco [id number] Chinell Bairon-Pacheco 10/22/2022 1 [facility] (MEDICAID HMO) [id number] 0003 Lorraine Pacheco [id number] Tony Cagle Notes Date Note Type Note Provider Name and Address Organization Details Recorded Time 05/25/2021 text/html Says that she's feeling depressed. No trigger, either at home or school. Normal appetite. Is not sleeping too well. Runs track. Basim Lynn MD Attn: Accounting[address], [place], [address] [place] [address], [facility] 05/25/2021 12:06:33 04/06/2022 text/html no concerns Basim Lynn MD Attn: Accounting[address] [place], [place], [address] [place] [address], [facility] 04/06/2022 13:18:32 06/24/2022 text/html Seen in ER for abdomen pain and vomiting. Diagnosed with flu. Is doing better. Improved appetite. Basim Lynn MD Attn: Accounting[address] [place], [address] [place] [address], [facility] 06/24/2022 18:26:16 07/26/2022 text/html Seen in ER for abdomen pain and vomiting, diagnosed with Cannabis hyperemesis syndrome, Is doing better. Concerns about oppositional , defiant behavior. 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 Is SA Basim Lynn MD Attn: Accounting[address] [place], [address] [place] [address], [facility] 07/26/2022 11:22:25 10/22/2022 text/html no concerns Basim Lynn MD Attn: [address]ing[address] [place], [address], [facility] 10/22/2022 12:25:13 OBGyn Episode No OBEpisode recorded.
--- OUTSIDE RECORDS SUMMARY | 2024-07-02 06:53 | XMS_ITS | Referral Summary ---
Author Organization [facility] Address [address] [place] [address] Care Team Providers Care Unpaid Intern Name Role Phone Rita Lynn MD Primary Care Provider No, Physician Unavailable Allergies Active Allergy Reactions [...] 07/14/2022 Assessment & Plan (07/16/2022 1:22 PM SOFTWARE ENGINEERING SUPERVISOR): Lorraine Pacheco is a 17 y/o previously healthy F with one month hx of abdominal pain and emesis with recent admission to [facility] 07/03-07/13 who presents with recurrence of sx. [...] Psychology Assessment & Plan (07/15/2022 4:44 PM SOFTWARE ENGINEERING SUPERVISOR): Lorraine Pacheco is a 17 y/o previously healthy F with one month hx of abdominal pain and emesis with recent admission to [facility] 07/03-07/13 who presents with recurrence of sx. [...] Psychology Assessment & Plan (07/14/2022 8:43 PM SOFTWARE ENGINEERING SUPERVISOR): Lorraine Pacheco is a 17 y/o previously healthy F with one month hx of abdominal pain and emesis with recent admission to [facility] 07/03-07/13 who presents with recurrence of sx. [...] c/s Assessment & Plan (07/14/2022 8:41 PM SOFTWARE ENGINEERING SUPERVISOR): Lorraine Pacheco is a 17 y/o previously healthy F with one month hx of abdominal pain and emesis with recent admission to [facility] 07/03-07/13 who presents with recurrence of sx. [...] 07/04/2022 Assessment & Plan (07/05/2022 10:25 AM SOFTWARE ENGINEERING SUPERVISOR): 25 vit D on admission - started 50,000 units ergocalciferol qweek, plan x8w and repeat level Assessment & Plan (07/04/2022 11:49 AM SOFTWARE ENGINEERING SUPERVISOR): 25 vit D on admission - started 50,000 units ergocalciferol qweek, plan x8w and repeat level High serum vitamin B12 07/04/2022 Assessment & Plan (07/07/2022 4:09 PM SOFTWARE ENGINEERING SUPERVISOR): Hold supplementation Assessment & Plan (07/05/2022 10:25 AM SOFTWARE ENGINEERING SUPERVISOR): Hold supplementation Assessment & Plan (07/04/2022 11:53 AM SOFTWARE ENGINEERING SUPERVISOR): Hold supplementation Nausea & vomiting 07/03/2022 Assessment & Plan (07/13/2022 1:56 PM SOFTWARE ENGINEERING SUPERVISOR): Patient presenting with subacute N/V with limited [...] plan. Assessment & Plan (07/05/2022 10:25 AM SOFTWARE ENGINEERING SUPERVISOR): Patient presenting with subacute N/V with limited [...] GI Assessment & Plan (07/04/2022 11:51 AM SOFTWARE ENGINEERING SUPERVISOR): Patient presenting with subacute N/V with limited [...] 07/03/2022 Assessment & Plan (07/13/2022 1:57 PM SOFTWARE ENGINEERING SUPERVISOR): Patient reports intermittent blurry vision over both eyes over the past several days (not present during encounter). No complaints currently. 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 - May consider ophtho referral outpatient Assessment & Plan (07/03/2022 10:07 PM SOFTWARE ENGINEERING SUPERVISOR): - Patient reports intermittent blurry vision over both eyes over the past several days (not present during encounter) - Unclear etiology - possible orthostatic; given history concern for 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; limited concern for optic neuritis given bilateral involvement - CTM, consider head imaging and ophthalmology consult if recurrent/ongoing during admission Severe malnutrition (CMS/HCC) 07/03/2022 Assessment & Plan (07/13/2022 1:58 PM SOFTWARE ENGINEERING SUPERVISOR): Patient with chronically low BMI per chart review with current BMI 14 and reported 10 lb weight loss recently related to vomiting and poor po intake - TF were started, but patient tolerating reg diet with no emesis, no concerns for malabsorption so TF not indicated at this time. Will plan to remove NG tube today. Assessment & Plan (07/05/2022 10:25 AM SOFTWARE ENGINEERING SUPERVISOR): Patient with chronically low BMI per chart review with current BMI 14 and reported 10 lb weight loss recently related to vomiting and poor po intake - RD consult - ADAT, Ensure TIDAC - Calorie Count Assessment & Plan (07/04/2022 11:49 AM SOFTWARE ENGINEERING SUPERVISOR): Patient with chronically low BMI per chart review with current BMI 14 and reported 10 lb weight loss recently related to vomiting and poor po intake - RD consult - ADAT, Ensure TIDAC - Calorie Count Resolved Problems Problem Noted Date Diagnosed Date Resolved Date Acute dystonic reaction due to drugs 07/05/2022 07/08/2022 Assessment & Plan (07/07/2022 4:09 PM SOFTWARE ENGINEERING SUPERVISOR): Likely due to heavy use of compazine [...] resolved Assessment & Plan (07/05/2022 10:24 AM SOFTWARE ENGINEERING SUPERVISOR): Likely due to heavy use of compazine [...] 07/14/2022 Assessment & Plan (07/10/2022 9:52 AM SOFTWARE ENGINEERING SUPERVISOR): Likely musculoskeletal in since it only happens after vomiting or gagging. Assessment & Plan (07/05/2022 10:22 AM SOFTWARE ENGINEERING SUPERVISOR): - Constant of L upper chest/shoulder region - worse with palpation and arm movement - hs-trop/EKG unremarkable; suspect MSK in etiology - Trial lidocaine patch, tylenol - PT/OT Assessment & Plan (07/03/2022 9:53 PM SOFTWARE ENGINEERING SUPERVISOR): - Constant of L upper chest/shoulder region - worse with palpation and arm movement - hs-trop/EKG unremarkable; suspect MSK in etiology - Trial lidocaine patch, tylenol - PT/OT Abdominal pain 07/03/2022 07/05/2022 Assessment & Plan (07/04/2022 11:52 AM SOFTWARE ENGINEERING SUPERVISOR): - Patient presenting with epigastric pain in [...] 07/05/2022 Assessment & Plan (07/05/2022 10:22 AM SOFTWARE ENGINEERING SUPERVISOR): Patient with onset of bilateral facial spasm over V3 regions, lasting ~1-2min. Ca, Mg, K wnl. limited concern for lesion as etiology given bilateral - Trial baclofen - checking Cu level Assessment & Plan (07/04/2022 11:50 AM SOFTWARE ENGINEERING SUPERVISOR): Patient with onset of bilateral facial spasm over V3 regions, lasting ~1-2min. Ca, Mg, K wnl. limited concern for lesion as etiology given bilateral - Trial baclofen - checking Cu level Social History Tobacco Use Types Packs/Day Years [...] on file Legal Sex Female 7:29 PM SOFTWARE ENGINEERING SUPERVISOR Gender Identity Not on file Sexual Orientation Not on file Last Filed Vital Signs Vital Sign Reading Time Taken Comments Blood Pressure 99/56 07/17/2022 7:30 AM SOFTWARE ENGINEERING SUPERVISOR Pulse 67 07/17/2022 7:30 AM SOFTWARE ENGINEERING SUPERVISOR Temperature 37.7 ??C (99.9 ??F) 07/17/2022 7:30 AM CS T Respiratory Rate 20 07/17/2022 7:30 AM SOFTWARE ENGINEERING SUPERVISOR Oxygen Saturation 98% 07/17/2022 7:30 AM SOFTWARE ENGINEERING SUPERVISOR Inhaled Oxygen Concentration - - Weight 42.8 kg (94 lb 5.7 oz) 07/14/2022 6:29 PM SOFTWARE ENGINEERING SUPERVISOR Height 171 cm (5' 7.32 ) 07/14/2022 6:29 PM SOFTWARE ENGINEERING SUPERVISOR Body Mass Index 14.64 07/14/2022 6:29 PM SOFTWARE ENGINEERING SUPERVISOR Plan of Treatment Not on file Procedures Procedure Name Priority Date/Time Associated Diagnosis Comments N. GONORRHOEAE/C. TRACHOMATIS AMPLIFICATION STAT 06/18/2022 4:57 PM SOFTWARE ENGINEERING SUPERVISOR from Last 3 Months or Most Recently Relevant to Health Maintenance Results * N. gonorrhoeae/C. trachomatis Amplification Urine (06/18/2022 4:57 PM SOFTWARE ENGINEERING SUPERVISOR) C. trachomatis Not Detected Not Detected [facility] Comment:Testing performed by : [facility], [address] [place] [address]., [id number] N. gonorrhoeae Not Detected Not Detected DES ROMO Comment: Interpretive Data Testing performed by the [facility]. This assay detects Chlamydia trachomatis and [...] last revised on 2019. Testing performed by: [facility], [address] [place] [address]., [address] Urine (None) 06/18/2022 4:57 PM SOFTWARE ENGINEERING SUPERVISOR 06/18/2022 5:11 PM SOFTWARE ENGINEERING SUPERVISOR Evelyn Cheema MD LAB MICROBIOLOGY - GEN ERAL ORDERABLES Final Result Performing Organization Address City/State/ZIP Co co Phone Number DES [place] [address] [facility] [place] [address] from Last 3 Months or Most Recently Relevant to Health [place] [address] [place] [address] [facility] [address] Advance Directives For more information, please contact: [phone] * Full Code (Latest Code Status on File) Date Activated Date Inactivated Comments 07/14/2022 6:47 PM 07/17/2022 6:03 PM * Full Code Date Activated Date Inactivated Comments 07/03/2022 9:03 PM 07/13/2022 5:08 PM Care Teams Unpaid Intern Relationship Specialty Start Date End Date Rita Lynn MD [address] [place] [id number] PCP - General Pediatrics 07/04/22 No, Physician 07/03/22
--- OUTSIDE RECORDS SUMMARY | 2024-07-02 06:53 | XMS_ITS | Clinical Summary ---
Author Organization [facility] Address [address] [place] [address] Care Team Providers Care Correctional Therapy Teacher Name Role Phone Unavailable Primary Care Provider Unavailabl e Social History Tobacco Use Types Packs/Day Years Used Date Smoking Tobacco: Never Assessed Comments Unknown Sex and Gender Information Value Date Recorded Sex Assigned at Not on file Legal Sex Female 1:11 PM RECEIVING CHECKER Gender Identity Not on file Sexual Orientation Not on file Plan of Treatment Health Maintenance Due Date Last Done Comments Hepatitis C Virus (HCV) Screening 2004 Meningococcal B Immunization (1 of 2 - Standard) 2020 Influenza Immunization (#1) 02/19/202408/2017, 05/03/2014, 05/10/2005 SARS-COV-2 Immunization ( season) 2024 Respiratory Syncytial Virus (RSV) Immunization (Adult) (1 - 1-dose 75+ series) 2079 Hepatitis B Immunization Completed 005, 01/12/2005, 2004, Additional history exists Pneumococcal Immunization Combined Aged Out 12/22/2005, 05/10/2005, 01/12/2005, Additional history exists No longer eligible based on patient's age to complete this topic Measles Mumps Rubella (MMR) Immunization Discontinued 01/14/2009, 12/22/2005 Polio (IPV) Immunization Discontinued 009, 05/10/2005, 01/12/2005, Additional history exists Varicella Immunization Discontinued 01/06/2010, 2005 DTaP/Tdap/Td Immunization Discontinued 2015, 01/14/2009, 12/22/2005, Additional history exists Hepatitis A Immunization Discontinued 12/11/2015, 12/19 Meningococcal Immunization (ACWY) Aged Out 12/11/2015 No longer eligible based on patient's age to complete this topic TdaP Immunization Completed 12/11/2015 Human Papillomavirus (HPV) Immunization Completed 03/22/2018, 12/11/2015 Rotavirus Immunization Aged Out No lo nger eligible based on patient's age to complete this topic
--- OUTSIDE RECORDS SUMMARY | 2024-07-02 06:54 | XMS_ITS | Encounter Summary ---
Author Organization [facility] Address [address] [place] [address] Care Team Providers Care Utilization Review Coordinator Name Role Phone No, Physician Primary Care Provider [phone] No, Physician Primary Care Provider [phone] Rita Lynn MD Primary Care Provider No, Physician Unavailable Encounter Details Date Type Department Care Team (Late st Contact Info) Description 06/30/2022 Orders Only [facility] Cardiology [address] [place] [address] Jabier Adame MD [facility] [address] Social History Tobacco Use Types Packs/Day Years Used Date Smoking Tobacco: Never Alcohol Use Standard Drinks/Week Comments Never 0 (1 standard drink = 0.6 oz pur e alcohol) Comments No Sex and Gender Information Value Date Recorded Sex Assigned at Not on file Legal Sex Female 7:29 PM POUNCER MACHINE Gender Identity Not on file Sexual Orientation Not on file documented as of this encounter Plan of Treatment Not on file documented as of this encounter Procedures Procedure Name Priority Date/Time Associated Diagnosis Comments CARDIOLOGY DOCUMENT SCAN Routine 06/30/2022 documented in this encounter Results * Cardiology Document Scan (06/30/2022) Anatomical Region Laterality Modality Other Jabier Adame MD [facility] DURES Final Result documented in this encounter Visit Diagnoses Not on filedocumented in this encounter Additional Health Concerns Infection Onset Date Last Indicated Resolved Time COVID: Suspected 07/03/2022 07/03/2022 07/03/2022 11:07 AM POUNCER MACHINE documented as of this encounter Care Teams Utilization Review Coordinator Relationship Specialty Start Date End Date No, Physician PCP - General 02/17/22 07/02/22 No, Physician PCP - General 07/03/22 07/03/22 Rita Lynn MD [address] [place] [id number] PCP - General Pediatrics 07/04/22 No, Physician 07/03/22 documented as of this encounter
--- OUTSIDE RECORDS SUMMARY | 2024-07-02 06:54 | XMS_ITS | Encounter Summary ---
Author Organization [facility] Address [address] [place] [address] Care Team Providers Care Feeder Loader Name Role Phone No, Physician Primary Care Provider [phone] No, Physician Primary Care Provider [phone] Rita Lynn MD Primary Care Provider [phone] No, Physician Unavailable Encounter Details Date Type Department Care Team (Late st Contact Info) Description 06/30/2022 Orders Only [facility] Cardiology [address] [place] [address] Jabier Adame MD [facility] [address] Social History Tobacco Use Types Packs/Day Years Used Date Smoking Tobacco: Never Alcohol Use Standard Drinks/Week Comments Never 0 (1 standard drink = 0.6 oz pur e alcohol) Comments No Sex and Gender Information Value Date Recorded Sex Assigned at Not on file Legal Sex Female 7:29 PM HARDWOOD FLOOR INSTALLER Gender Identity Not on file Sexual Orientation Not on file documented as of this encounter Plan of Treatment Not on file documented as of this encounter Procedures Procedure Name Priority Date/Time Associated Diagnosis Comments CARDIOLOGY DOCUMENT SCAN Routine 06/30/2022 documented in this encounter Results * Cardiology Document Scan (06/30/2022) Anatomical Region Laterality Modality Other Jabier Adame MD [facility] DURES Final Result documented in this encounter Visit Diagnoses Not on filedocumented in this encounter Additional Health Concerns Infection Onset Date Last Indicated Resolved Time COVID: Suspected 07/03/2022 07/03/2022 07/03/2022 11:07 AM HARDWOOD FLOOR INSTALLER documented as of this encounter Care Teams Feeder Loader Relationship Specialty Start Date End Date No, Physician PCP - General 02/17/22 07/02/22 No, Physician PCP - General 07/03/22 07/03/22 Rita Lynn MD [address] [place] [id number] PCP - General Pediatrics 07/04/22 No, Physician 07/03/22 documented as of this encounter
--- OUTSIDE RECORDS SUMMARY | 2024-07-02 06:54 | XMS_ITS | Encounter Summary ---
Author Organization [facility] Healthcare Address [address] [place] [address] Care Team Providers Care Clinical Cytogeneticist Name Role Phone Rita Lynn MD Primary Care Provider [phone] No, Physician Unavailable Reason for Visit * Reason Comments Chest Pain * Auth/Cert Specialty Diagnoses / Procedures Referred By Contac t Referred To Contact Diagnoses Chest pain, unspecified type Severely underweight adult Procedures N/A Referral ID Status Reason Start Date Expiration Date Visits Re quested Visits Authorized [id number] 1 1 Encounter Details Date Type Department Care Team (Latest Contact Info) Description 07/07/2022 4:15 PM [facility] - 07/07/2022 4:50 PM [facility] Surgery [facility] [address] [place] [address] Brittnee Babb MD [address] [place] [address] ESOPHAGOGASTRODUODENOSCOPY BIOPSY Surgery Details Date/Time Status Location OR Service Patient Class Case Class Case Type Trauma Case? 07/07/2022 4:15 PM Posted [facility] EUS 09 Gastroenterology Inpatient Urgent - 24 hours Panel 1 Procedure LRB Anes Op Region Wound Class Comments ESOPHAGOGASTRODUODENOSCOPY BIOPSY N/A Monitor Anesthesia Care Surgeon Surgeon Role Service Panel Brittnee Babb MD Primary Gastroentero logy 1 documented in this encounter Social History Tobacco Use Types Packs/Day Years Used Date Smoking Tobacco: Some Days Vaping Tobacco Cessation:Ready to Q uit: Not Asked; Counseling Given: Not Answered Comments No Sex and Gender Information Value Date Recorded Sex Assigned at Not on file Legal Sex Female 7:29 PM [facility] Gender Identity Not on file Sexual Orientation Not on file documented as of this encounter Last Filed Vital Signs Vital Sign Reading Time Taken Comments Blood Pressure 133/93 07/07/2022 1:14 PM [facility] Pulse 127 07/07/2022 1:14 PM [facility] Temperature 36.7 ??C (98.1 ??F) 07/07/2022 1:14 PM CS T Respiratory Rate 18 07/07/2022 1:14 PM [facility] Oxygen Saturation 99% 07/07/2022 1:14 PM [facility] [employer] Inhaled Oxygen Concentration - - Weight 40.1 kg (88 lb 8 oz) 07/04/2022 4:[address] Height 172.7 cm (5' 8 ) 07/03/2022 7:45 PM [facility] Body Mass Index 13.49 07/03/2022 7:45 PM [facility] Body Mass Index Percentile 0.00% 07/10/2022 3:1 2 AM [facility] Growth Chart: CDC (Girls, 2- 20 Years) documented in this encounter Discharge Summaries * Gita Duarte MD - 07/13/2022 1:03 PM CST Inpatient Discharge Summary BRIEF OVERVIEW Admitting Provider: Yayo Patterson MD Discharge Provider: No att. providers found Primary Care Physician at Discharge: Rita Lynn MD [phone] Admission Date: 07/03/2022 Discharge Date: 07/13/2022 Admission Location: [facility] Problems/Diagnoses: Principal Problem: Nausea & vomiting Active Problems: Chest pain, unspecified type Vision changes Severe malnutrition (CMS/HCC) (HCC) Vitamin D deficiency High serum vitamin B12 Resolved Problems: Abdominal pain Facial spasm Acute dystonic reaction due to drugs DETAILS OF HOSPITAL STAY Presenting Problem/History of Present Illness: 17yF with no remarkable PMH presenting with multiple complaints. Patient reports over the past 3wks she has had onset of daily nausea/vomiting (NBNB) with associated non-radiating epigastric pain that is worse with emesis and movement. She is unsure of any changeswith PO intake. She states there is no consistent timeframe where she vomits following PO intake. She last tolerated a meal yesterday. She states fluid PO intake has been reasonable. He last BM was 3days ago, which is atypical for her. She additionally reports left upper chest pain that is relatively constant and worsens with palpation and large breaths - she states paresthesias over the given area. She endorses generalized weakness and 10lb wt loss over this time course. Over the last few daysshe has noted blurry vision intermittently that self-resolves. She additionally endorses onset of facial spasms that started today over bilateral V3 regions, lasting 1-2min. She states up until 3wks ago she was smoking marijuana daily. She endorses a normal appetite at baseline. Per chart review her wt was 102lbs in 02/2021 where she presented with similar symptoms and unremarkable workup (she, however, endorses different severity of symptoms at this time). She denies fever, cough, hematochezia, urinary symptoms. She originally presented to [facility], though left AMA on 07/01 due to perceived poor care - subsequently presenting to [facility] on the same day with unremarkable labs/workup. Of note it was reported she had a fall in the restroom without LOC/head trauma with wrist films negative. In the ED she presented HD stable. Evaluation with unremarkable CMP/CBC, lipase 55, hs-trop <4 x2, urinary hCG negative, UA clear, RVP negative, CXR clear, CT- AP without acute process. She was administered 1L LR, zofran and droperidol and admitted for further evaluation. Hospital Course: Nausea & vomiting Patient presenting with subacute N/V with limited ability to maintain consistent PO intake over past several weeks.HIV neg, unremarkable CMP/CBC, lipase 55, hs- trop <4 x 2, urinary hCG negative, UA clear, RVP negative, CXR clear, CT-AP without acute process, urine tox screen pos only for cannabinoids. Cu level was low, Pb level normal. EGD was normal, pathology was also normal. H.pylori neg. At this time, differential includes cannabis hyperemesis syndrome, cyclic vomiting syndrome, malnutrition-induced gastroparesis, functional n/v, bulimia nervosa. Pt smokes marijuana every day and was counseled on cessation, as well as its likely contribution to her nausea. Pt's nausea responded relatively well to Zofran throughout hospitalization, which was pediatrically dosed due to her young age and low BMI. NG was placed and tube feeds started on 07/11, pt tolerated well with no N/V. Psych was consulted to evaluate for eating disorder, psych did not think that pt has eating disorder, they have recommended SSRI for depression/anxiety but patient declined. Eventually discharged on schedule zof ran & scopolamine patch. Likely acute dystonic reaction Patient had been taking compazine suppositories prior to admission for nausea and also received droperidol x1 day of admission for nausea. She began having some facial twitching which progressed to unilateral body muscle dystonia. Dopaminergic medications for nausea discontinued. She was given prn IV benadryl. CT head, MRI head unremarkable. EEG, unremarkable. Vitamin D deficiency 25-vit D level 17. Patient started on once weekly 50,000 units ergocalciferol. Severe malnutrition Patient with chronically low BMI per chart review with current BMI 14 and reported 10 lb weight loss recently related to vomiting and poor po intake. RD consult, placed on calorie counts. Patient wasstarted on tube feeds through NG on 07/11. Patient was tolerating regular diet with no emesis, no concerns for malabsorption so TF not indicated at this time. NG tube was removed 07/13 and TF were stopped. Vision changes Patient reports intermittent blurry vision over both eyes over the past several days (not present during encounter). 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 Resolved on discharge. Sent ophtho referral on discharge. Active Issues Requiring Follow-up: Establish care with PCP Test Results Pending at Discharge: Operative Procedures Performed: Procedure(s): ESOPHAGOGASTRODUODENOSCOPY BIOPSY Findings: The examined esophagus was normal. No evidence of esophagitis or other mucosal abnormality. Biopsies were taken with a cold forceps for histology. Verification of patient identification for the specimen was done. The entire examined stomach was normal. No ulcers or other mucosal abnormalities. Biopsies were taken with a cold forceps for histology. The duodenal bulb and second portion of the duodenum were normal. Impression: - Normal esophagus. Biopsied. - Normal stomach. Biopsied. - Normal duodenal bulb and second portion of the duodenum. Other Procedures: Pertinent Test Results: Discharge Details Physical Exam at Discharge: Discharge Condition: good Pulse: 93 Resp: 16 BP: 110/77 Temp: 36.6 ??C (97.9 ??F) Weight: 40.2 kg (88 lb 11.2 oz) Pertinent Exam Findings at Discharge: N/A Discharge Disposition: Discharge to home or self care Code Status at Discharge: Full Code Discharge Instructions: Take zofran (ondansetron) 30 minutes before each meal to help prevent nausea. You will also be prescribed a scopolamine patch which you will need to switch out every 3 days. Take miralax once a day for your constipation. Other Instructions This is the earliest available follow up appointment with your PCP. Please bring this discharge paperwork, a list of home medications, your insurance card and photo ID to your appointment. Please arrive 15 minutes prior to your appointment and make sure you wear a mask. If you are unable to keep this appointment, it is very important you call to reschedule. Discharge Medications: Current Medications TAKE these medications acetaminophen 500 mg capsule Take 2 capsules (1,000 mg total) by mouth every 6 (six) hours as needed (pain) For: fever, pain ergocalciferol 50,000 unit capsule Take 1 capsule (50,000 Units total) by mouth once a week for 7 doses Commonly known as: VITAMIN D Start taking on: July 18, 2022 ondansetron ODT 4 mg disintegrating tablet Take [...] daily For: constipation Commonly known as: MIRALAX Start taking on: July 14, 2022 scopolamine 1 mg over 3 days patch [address] 1 patch on the skin every third day Outpatient Follow-Up: Contact Information for Follow-ups Rita Lynn MD Specialty: Pediatrics Relationship: PCP - General [facility] [address] [facility] [id number] Next Steps: Follow up [facility] documented in this encounter Discharge Instructions * Discharge Instructions* Gita Duarte MD - 07/13/2022 12:33 PM [facility] [facility] Take zofran (ondansetron) 30 minutes before each meal to help prevent nausea. You will also be prescribed a scopolamine patch which you will need to switch out every 3 days. Take miralax once a day for your constipation. [facility] NG [facility]WER * Discharge Instr - Other Orders* Shelby Griggs RN - 07/09/2022 4:29 PM [facility] This is the earliest available follow up appointment with your PCP. Please bring this discharge paperwork, a list of home medications, your insurance card and photo ID to your appointment. Please arrive 15 minutes prior to your appointment and make sure you wear a mask. If you are unable to keep this appointment, it is very important you call to reschedule. [facility]ER * Attachments The following attachments cannot be sent through Care Everywhere. * Cyclic Vomiting Syndrome in Children (Cane Piler) (Faroese) documented in this encounter Medications at Time [...] 07/13/2022 3 documented as of this encounter Ordered Prescriptions Prescription Sig Dispense Quantity Refills Last Filled Start Date End Date ergocalciferol (VITAMIN D) 50,000 unit capsule Take 1 capsule (50,000 Units total) by mouth once a week for 7 doses 4 capsule 1 07/18/[address] (PROTONIX) 40 mg EC tablet Take 1 tablet (40 mg total) by mouth daily 30 tablet 07/13/2022 acetaminophen 500 mg capsuleIndications:F ever,Pain Take 2 capsules (1,000 mg total) by mouth every 6 (six) hours as needed (pain) 30 tablet 07/13/2022 polyethylene glycol (MIRALAX) 17 gram packetIndications:co nstipation Take 1 packet (17 g total) by mouth daily 30 packet 07/14/2022 famotidine (PEPCID) 20 mg tablet Take 1 tablet (20 mg total) by mouth 2 (two) times a day 60 tablet 07/13/2022 3 ondansetron ODT (ZOFRAN-ODT) 4 mg disintegrating tablet Take 1 tablet (4 mg total) by mouth every 8 (eight) hours as needed for nausea or vomiting 30 tablet 1 07/13/2022 3 scopolamine 1 mg over 3 days patch [address] 1 patch on the skin every third day 10 patch 07/13/2022 3 acetaminophen 500 mg capsuleIndications:F ever,Pain Take 2 capsules (1,000 mg total) by mouth every 6 (six) hours as needed for pain 30 tablet 07/10/2022 3 scopolamine 1 mg over 3 days patch [address] 1 patch on the skin every third day 10 patch 07/11/2022 3 ondansetron ODT (ZOFRAN-ODT) 4 mg disintegrating tablet Take 1 tablet (4 mg total) by mouth every 8 (eight) hours as needed for nausea or vomiting 20 tablet 2 07/10/2022 3 documented in this encounter Discharge Disposition Disposition Code Departure Means Destination Discharge to home or self care documented in this encounter Progress Notes * Gita Duarte MD - 07/13/2022 1:03 PM CST Daily Progress Note Division of Hospital Medicine Name: Isabel Churchill Today: July 13, 2022 : 2005 Age: 17 y.o. female Admit: 07/03/2022 Bed: [place] [id number] Subjective Interval History: Reports no n/v over past day. Patient has been going down to cafeteria, able to tolerate full meals (including burgers, etc.). No diarrhea. Objective Medications: Scheduled: enoxaparin, 30 mg, subcutaneous, Daily-2100 ergocalciferol, 50,000 Units, oral, Weekly famotidine, 10 mg, intravenous, Q12H folic acid, 1 mg, oral, Daily lidocaine, 1 patch, transdermal, Daily multivitamin therapeutic, 1 tablet, oral, Daily ondansetron, 4 mg, intravenous, Q8H pantoprazole, 40 mg, intravenous, Daily polyethylene glycol, 17 g, oral, Daily scopolamine, 1 patch, transdermal, Q72H [Held by Provider] thiamine, 100 mg, oral, Daily Infusions: PRN: ??? acetaminophen ??? calcium carbonate ??? diphenhydrAMINE ??? lidocaine ??? LORazepam ??? phenoL ??? ramelteon ??? senna ??? traMADoL Vitals: 24hr Min/Max: Temp Min: 36.6 ??C (97.9 ??F) Max: 37 ??C (98.6 ??F) Pulse Min: 74 Max: 93 BP Min: 93/55 Max: 110/77 Resp Min: 15 Max: 16 SpO2 Min: 100 % Max: 100 % Most Recent: Vitals: 07/13/22 0935 BP: 110/77 Pulse: 93 Resp: 16 Temp: 36.6 ??C (97.9 ??F) SpO2: 100% Intake/Output Summary (Last 24 hours) at 07/13/2022 1352 Last data filed at 07/13/2022 0625 Gross per 24 hour Intake 481 ml Output -- Net 481 ml Physical Exam General: Comfortable, NAD, thin/cachectic HENT: NC/AT. MMM. OP clear. NG tube in place. Eyes: PERRL. EOMI. Conjunctivae normal. Neck: Supple, full ROM. No JVD. Resp: CTAB. Nml effort on RA. CV: RRR. Nml S1, S2. No m/r/g. GI: Soft, NTND. +bowel sounds. Ext: No edema. Distal ext warm, well-perfused. MSK: No joint deformities, swelling. Neuro: A&Ox3. CN II-XII intact. 5/5 BUE & BLE strength. Intact FNF & [id number], normal gait Psych: Appropriate mood/affect. No SI/HI. Derm: Warm, dry. No rashes. Lab/Diagnostic Review: Recent Results (from the past 36 hour(s)) Comprehensive metabolic panel Collection Time: 07/12/22 8:38 AM Result Value Ref Range Sodium 139 135 - 145 mmol/L Potassium, pl 4.0 3.3 - 4.9 mmol/L Chloride 100 97 - 110 mmol/L CO2 29 22 - 32 mmol/L Anion gap 10 2 - 15 mmol/L BUN 12 8 - 25 mg/dL Creatinine 1.01 (H) 0.40 - 1.00 mg/dL Glucose 92 70 - 199 mg/dL Calcium 9.1 8.5 - 10.3 mg/dL Bilirubin, total 1.0 0.1 - 1.2 mg/dL Protein, pl 6.3 (L) 6.5 - 8.5 g/dL Albumin 3.9 3.5 - 5.0 g/dL Alk phos 38 (L) 70 - 260 Units/L ALT 10 7 - 45 Units/L AST 19 10 - 45 Units/L eGFR Collection Time: 07/12/22 8:38 AM Result Value Ref Range eGFR 83 (L) 90 - 130 mL/min/1.73 m2 Comprehensive metabolic panel Collection Time: 07/12/22 9:20 PM Result Value Ref Range Sodium 138 135 - 145 mmol/L Potassium, pl 4.1 3.3 - 4.9 mmol/L Chloride 104 97 - 110 mmol/L CO2 28 22 - 32 mmol/L Anion gap 6 2 - 15 mmol/L BUN 10 8 - 25 mg/dL Creatinine 0.90 0.40 - 1.00 mg/dL Glucose 101 70 - 199 mg/dL Calcium 8.9 8.5 - 10.3 mg/dL Bilirubin, total 0.6 0.1 - 1.2 mg/dL Protein, pl 6.2 (L) 6.5 - 8.5 g/dL Albumin 3.9 3.5 - 5.0 g/dL Alk phos 47 (L) 70 - 260 Units/L ALT 16 7 - 45 Units/L AST 24 10 - 45 Units/L eGFR Collection Time: 07/12/22 9:20 PM Result Value Ref Range eGFR >90 90 - 130 mL/min/1.73 m2 Magnesium Collection Time: 07/12/22 9:20 PM Result Value Ref Range Magnesium 2.0 1.4 - 2.5 mg/dL Phosphorus Collection Time: 07/12/22 9:20 PM Result Value Ref Range Phosphorus, pl 3.5 2.3 - 4.5 mg/dL Comprehensive metabolic panel Collection Time: 07/13/22 9:32 AM Result Value Ref Range Sodium 140 135 - 145 mmol/L Potassium, pl 4.4 3.3 - 4.9 mmol/L Chloride 101 97 - 110 mmol/L CO2 29 22 - 32 mmol/L Anion gap 10 2 - 15 mmol/L BUN 11 8 - 25 mg/dL Creatinine 0.87 0.40 - 1.00 mg/dL Glucose 94 70 - 199 mg/dL Calcium 9.2 8.5 - 10.3 mg/dL Bilirubin, total 0.5 0.1 - 1.2 mg/dL Protein, pl 6.4 (L) 6.5 - 8.5 g/dL Albumin 4.0 3.5 - 5.0 g/dL Alk phos 43 (L) 70 - 260 Units/L ALT 12 7 - 45 Units/L AST 25 10 - 45 Units/L eGFR Collection Time: 07/13/22 9:32 AM Result Value Ref Range eGFR >90 90 - 130 mL/min/1.73 m2 I have reviewed the laboratory results. Imaging Results: XR Abdomen Ap 1 Vw Narrative: EXAMINATION: Two abdomen one view radiographs. HISTORY: Nasogastric tube placement verification COMPARISON: CT abdomen pelvis dated 07/03/2022 Impression: Two single view radiograph of the abdomen are submitted for evaluation. Exam 1: 07/11/2022 at 12:23 PM A gastric tube projects over the esophagus, with tip at the gastroesophageal junction and side-port in the distal esophagus. The bowel gas pattern is within normal limits. Exam 2: 07/11/2022 at 2:37 PM There is been interval advancement of nasogastric tube with tip in the gastric body and side-port at the level of the fundus. The bowel gas pattern is within normal limits. Lung bases are clear Dictated by: Susy Ramirez M.D. The radiology attending physician has personally reviewed this study, and had reviewed and/or edited this written report and agrees with it. Electronically signed by: Miguel Juan M.D. XR Abdomen Ap 1 Vw Narrative: EXAMINATION: Two abdomen one view radiographs. HISTORY: Nasogastric tube placement verification COMPARISON: CT abdomen pelvis dated 07/03/2022 Impression: Two single view radiograph of the abdomen are submitted for evaluation. Exam 1: 07/11/2022 at 12:23 PM A gastric tube projects over the esophagus, with tip at the gastroesophageal junction and side-port in the distal esophagus. The bowel gas pattern is within normal limits. Exam 2: 07/11/2022 at 2:37 PM There is been interval advancement of nasogastric tube with tip in the gastric body and side-port at the level of the fundus. The bowel gas pattern is within normal limits. Lung bases are clear Dictated by: Susy Ramirez M.D. The radiology attending physician has personally reviewed this study, and had reviewed and/or edited this written report and agrees with it. Electronically signed by: Miguel Juan M.D. Assessment/Plan * Nausea & vomiting Assessment & Plan Patient presenting with subacute N/V with limited ability to maintain consistent PO intake over course. 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 Malnutrition-related gastroparesis possible though considered less likely; possible eating disorder component given chronicityof malnutrition. - Thus far evaluation with unremarkable [...] remove NG tube and discharge home with anti- emetics, patient agreeable with plan. High serum vitamin B12 Assessment & Plan Hold supplementation Severe malnutrition (CMS/HCC) (HCC) Assessment & Plan Patient with chronically low BMI per chart review with current BMI 14 and reported 10 lb weight loss recently related to vomiting and poor po intake - TF were started, but patient tolerating reg diet with no emesis, no concerns for malabsorption soTF not indicated at this time. Will plan to remove NG tube today. Vision changes Assessment & Plan Patient reports intermittent blurry vision over both eyes over the past several days (not present during encounter). No complaints currently. 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 - May consider ophtho referral outpatient Chest pain, unspecified type Assessment & Plan Likely musculoskeletal in since it only happens after vomiting or gagging. [facility]ER * Vida Stevens RN - 07/13/2022 12:51 PM CST 07/05/22 1125 Discharge Summary Chart reviewed For Medical Necessity Does patient have a planned readmission to hospital planned? No Discharge Disposition Private residence Equipment/Provider Needs No Home Needs Identified Discharge Additional Assistance Does the patient need discharge transport arranged? No (Transport per family at discharge) Post Discharge Care Provider Post Discharge Care Plan DC Summary has been faxed to next level of care provider (see Follow Up Providers) Patient is medically stable to discharge home today. Patient will have transportation provided by the patient's family. Patient has PCP follow up today at 1445- patient planning to keep this appointment.. No additional needs noted at this time. NG [facility]S SEWER * Vida Stevens RN - 07/13/2022 12:47 PM CST 07/05/22 1125 Communications Important Message from Medicare notice given to patient? Not Applicable AYALA letter given? Not Applicable Patient choice (Home Health/Hospice) list given to patient/wine sales representative? Not Applicable Retirement Facility list given to patient/wine sales representative? Not Applicable Fiduciary Responsibility Patient/Designated decision maker was informed of [facility] fiduciary relationship as necessary NG [facility] SEWER * Grover Spaulding MD - 07/12/2022 1:50 PM CST Daily Progress Note Division of Hospital Medicine Name: Isabel Churchill Today: July 12, 2022 : 2005 Age: 17 y.o. female Admit: 07/03/2022 Bed: [id number] Subjective Interval History: - tolerating tube feeds well and eating with no vomiting or abdominal pain. - consulted psych for evaluation of eating disorder. Psychiatric does not think pt has eating disorder, they are leaning more towards marijuana induced hyperemesis. Objective Medications: Scheduled: enoxaparin, 30 mg, subcutaneous, Daily-2100 ergocalciferol, 50,000 Units, oral, Weekly famotidine, 10 mg, intravenous, Q12H folic acid, 1 mg, oral, Daily lidocaine, 1 patch, transdermal, Daily multivitamin therapeutic, 1 tablet, oral, Daily ondansetron, 4 mg, intravenous, Q8H pantoprazole, 40 mg, intravenous, Daily polyethylene glycol, 17 g, oral, Daily scopolamine, 1 patch, transdermal, Q72H [Held by Provider] thiamine, 100 mg, oral, Daily Infusions: PRN: acetaminophen calcium carbonate diphenhydrAMINE lidocaine LORazepam morphine ramelteon senna traMADoL Vitals: 24hr Min/Max: Temp Min: 36.8 ??C (98.2 ??F) Max: 36.9 ??C (98.4 ??F) Pulse Min: 77 Max: 90 BP Min: 90/53 Max: 95/62 Resp Min: 14 Max: 16 SpO2 Min: 98 % Max: 100 % Most Recent: Vitals: 07/12/22 0825 BP: 94/62 Pulse: 77 Resp: 16 Temp: 36.9 ??C (98.4 ??F) SpO2: 100% Intake/Output Summary (Last 24 hours) at 07/12/2022 1906 Last data filed at 07/12/2022 0540 Gross per 24 hour Intake 200 ml Output -- Net 200 ml Physical Exam Constitutional: Patient is cachectic Eyes: PERRL, EOMI, anicteric ENT: NCAT, oropharynx normal, moist mucus membranes Lungs: Clear to auscultation Cardiovascular: RRR, normal S1 and S2 GI: Soft, mild generalized tenderness. Skin: No new rashes, lesions or bruises Extremities: Normal without edema or cyanosis Neurologic: AOx4, CNII-XII intact Psychiatric: Normal affect and mood I have reviewed the patient's vital signs. Lab/Diagnostic Review: Recent Results (from the past 36 hour(s)) Comprehensive metabolic panel Collection Time: 07/11/22 10:54 PM Result Value Ref Range Sodium 139 135 - 145 mmol/L Potassium, pl 3.6 3.3 - 4.9 mmol/L Chloride 101 97 - 110 mmol/L CO2 30 22 - 32 mmol/L Anion gap 8 2 - 15 mmol/L BUN 10 8 - 25 mg/dL Creatinine 0.93 0.40 - 1.00 mg/dL Glucose 108 70 - 199 mg/dL Calcium 9.0 8.5 - 10.3 mg/dL Bilirubin, total 1.2 0.1 - 1.2 mg/dL Protein, pl 6.4 (L) 6.5 - 8.5 g/dL Albumin 4.0 3.5 - 5.0 g/dL Alk phos 38 (L) 70 - 260 Units/L ALT 10 7 - 45 Units/L AST 22 10 - 45 Units/L eGFR Collection Time: 07/11/22 10:54 PM Result Value Ref Range eGFR >90 90 - 130 mL/min/1.73 m2 Comprehensive metabolic panel Collection Time: 07/12/22 8:38 AM Result Value Ref Range Sodium 139 135 - 145 mmol/L Potassium, pl 4.0 3.3 - 4.9 mmol/L Chloride 100 97 - 110 mmol/L CO2 29 22 - 32 mmol/L Anion gap 10 2 - 15 mmol/L BUN 12 8 - 25 mg/dL Creatinine 1.01 (H) 0.40 - 1.00 mg/dL Glucose 92 70 - 199 mg/dL Calcium 9.1 8.5 - 10.3 mg/dL Bilirubin, total 1.0 0.1 - 1.2 mg/dL Protein, pl 6.3 (L) 6.5 - 8.5 g/dL Albumin 3.9 3.5 - 5.0 g/dL Alk phos 38 (L) 70 - 260 Units/L ALT 10 7 - 45 Units/L AST 19 10 - 45 Units/L eGFR Collection Time: 07/12/22 8:38 AM Result Value Ref Range eGFR 83 (L) 90 - 130 mL/min/1.73 m2 I have reviewed the laboratory results. Imaging Results: XR Abdomen Ap 1 Vw Narrative: EXAMINATION: Two abdomen one view radiographs. HISTORY: Nasogastric tube placement verification COMPARISON: CT abdomen pelvis dated 07/03/2022 Impression: Two single view radiograph of the abdomen are submitted for evaluation. Exam 1: 07/11/2022 at 12:23 PM A gastric tube projects over the esophagus, with tip at the gastroesophageal junction and side-port in the distal esophagus. The bowel gas pattern is within normal limits. Exam 2: 07/11/2022 at 2:37 PM There is been interval advancement of nasogastric tube with tip in the gastric body and side-port at the level of the fundus. The bowel gas pattern is within normal limits. Lung bases are clear Dictated by: Susy Ramirez M.D. The radiology attending physician has personally reviewed this study, and had reviewed and/or edited this written report and agrees with it. Electronically signed by: Miguel Juan M.D. XR Abdomen Ap 1 Vw Narrative: EXAMINATION: Two abdomen one view radiographs. HISTORY: Nasogastric tube placement verification COMPARISON: CT abdomen pelvis dated 07/03/2022 Impression: Two single view radiograph of the abdomen are submitted for evaluation. Exam 1: 07/11/2022 at 12:23 PM A gastric tube projects over the esophagus, with tip at the gastroesophageal junction and side-port in the distal esophagus. The bowel gas pattern is within normal limits. Exam 2: 07/11/2022 at 2:37 PM There is been interval advancement of nasogastric tube with tip in the gastric body and side-port at the level of the fundus. The bowel gas pattern is within normal limits. Lung bases are clear Dictated by: Susy Ramirez M.D. The radiology attending physician has personally reviewed this study, and had reviewed and/or edited this written report and agrees with it. Electronically signed by: Miguel Juan M.D. I have independently reviewed and interpreted . Assessment/Plan High serum vitamin B12 Assessment & Plan Hold supplementation Severe malnutrition (CMS/HCC) (HCC) Assessment & Plan Patient with chronically low BMI per chart review with current BMI 14 and reported 10 lb weight loss recently related to vomiting and poor po intake - RD consult - ADAT, Ensure TIDAC. - patient declined tube feeds will continue calorie count. - 07/11 trial of tube feeds. 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 Ambulatory referral to Ophthalmology Chest pain, unspecified type Assessment & Plan Likely musculoskeletal in since it only happens after vomiting or gagging. * Nausea & vomiting Assessment & Plan Patient presenting with subacute N/V with limited ability to maintain consistent PO intake over course. 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 Malnutrition-related gastroparesis possible though considered less likely; possible eating disorder component given chronicityof malnutrition. - Thus far evaluation with unremarkable CMP/CBC, lipase 55, hs-trop <4 x 2, urinary hCG negative, UA clear, RVP negative, HIV neg, CXR clear, CT-AP without acute process, Utox + cannabinoids but otherwise negative. GI was consulted, EGD was done on 07/07 was unremarkable. Biopsies were taken from esophagus and stomach results are pending. Discussed with patient and mother tube feeding and theywere agreeable. - Cu level ordered - Zofran scheduled Q 8 hours. - Trial IV ativan prn, scopolamine patch - Trial PPI - Avoid cannabis - calorie count -pathology results from stomach and esophagus are unremakable - Psych consulted, dont think pt has eating disorder. - plan is to remove NG once pt tolerates PO and keeps food down. Grover Spaulding MD [facility] [employer] * Grover Spaulding MD - 07/11/2022 10:31 AM CST Daily Progress Note Division of Hospital Medicine Name: Isabel Churchill Today: July 11, 2022 : 2005 Age: 17 y.o. female Admit: 07/03/2022 Bed: [id number] Subjective Interval History: - still having episodes of abdominal cramps associated with nausea and vomiting. Will start trial of NG feeding today and re-evaluate tomorrow. Objective Medications: Scheduled: enoxaparin, 30 mg, subcutaneous, Daily-2100 ergocalciferol, 50,000 Units, oral, Weekly famotidine, 10 mg, intravenous, Q12H FERMIN folic acid, 1 mg, oral, Daily lidocaine, 1 patch, transdermal, Daily multivitamin therapeutic, 1 tablet, oral, Daily ondansetron, 4 mg, intravenous, Q8H ondansetron, 4 mg, intravenous, Once pantoprazole, 40 mg, intravenous, Daily scopolamine, 1 patch, transdermal, Q72H [Held by Provider] thiamine, 100 mg, oral, Daily Infusions: PRN: acetaminophen calcium carbonate diphenhydrAMINE LORazepam morphine ramelteon traMADoL Vitals: 24hr Min/Max: Temp Min: 36.6 ??C (97.9 ??F) Max: 37.1 ??C (98.7 ??F) Pulse Min: 101 Max: 116 BP Min: 105/75 Max: 134/93 Resp Min: 16 Max: 18 SpO2 Min: 96 % Max: 100 % Most Recent: Vitals: 07/11/22 0845 BP: 133/90 Pulse: 116 Resp: 18 Temp: 36.6 ??C (97.9 ??F) SpO2: 100% No intake or output data in the 24 hours ending 07/11/22 1036 Physical Exam Constitutional: Patient is cachectic Eyes: PERRL, EOMI, anicteric ENT: NCAT, oropharynx normal, moist mucus membranes Lungs: Clear to auscultation Cardiovascular: RRR, normal S1 and S2 GI: Soft, mild generalized tenderness. Skin: No new rashes, lesions or bruises Extremities: Normal without edema or cyanosis Neurologic: AOx4, CNII-XII intact Psychiatric: Normal affect and mood I have reviewed the patient's vital signs. Lab/Diagnostic Review: Recent Results (from the past 36 hour(s)) Basic metabolic panel Collection Time: 07/10/22 3:22 AM Result Value Ref Range Sodium 140 135 - 145 mmol/L Potassium, pl 3.9 3.3 - 4.9 mmol/L Chloride 102 97 - 110 mmol/L CO2 31 22 - 32 mmol/L Anion gap 7 2 - 15 mmol/L BUN 11 8 - 25 mg/dL Creatinine 1.00 0.40 - 1.00 mg/dL Glucose 92 70 - 199 mg/dL Calcium 9.6 8.5 - 10.3 mg/dL eGFR Collection Time: 07/10/22 3:22 AM Result Value Ref Range eGFR 84 (L) 90 - 130 mL/min/1.73 m2 Basic metabolic panel Collection Time: 07/11/22 5:24 AM Result Value Ref Range Sodium 140 135 - 145 mmol/L Potassium, pl 3.7 3.3 - 4.9 mmol/L Chloride 102 97 - 110 mmol/L CO2 28 22 - 32 mmol/L Anion gap 10 2 - 15 mmol/L BUN 10 8 - 25 mg/dL Creatinine 0.92 0.40 - 1.00 mg/dL Glucose 96 70 - 199 mg/dL Calcium 9.5 8.5 - 10.3 mg/dL eGFR Collection Time: 07/11/22 5:24 AM Result Value Ref Range eGFR >90 90 - 130 mL/min/1.73 m2 I have reviewed the laboratory results. Imaging Results: XR Chest 1 View Narrative: EXAMINATION: 1 view chest radiograph Impression: The current study is compared with the prior radiograph dated 07/03/2022. The lungs are clear without pulmonary consolidation, pleural effusion, or pneumothorax. The cardiomediastinal silhouette is unchanged. Dictated by: Triston Sierra MD The radiology attending physician has personally reviewed this study, and had reviewed and/or edited this written report and agrees with it. Electronically signed by: Elizabeth Delvalle M.D. I have independently reviewed and interpreted . Assessment/Plan High serum vitamin B12 Assessment & Plan Hold supplementation Severe malnutrition (CMS/HCC) (HCC) Assessment & Plan Patient with chronically low BMI per chart review with current BMI 14 and reported 10 lb weight loss recently related to vomiting and poor po intake - RD consult - ADAT, Ensure TIDAC. - patient declined tube feeds will continue calorie count. - 07/11 trial of tube feeds. 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 Ambulatory referral to Ophthalmology Chest pain, unspecified type Assessment & Plan Likely musculoskeletal in since it only happens after vomiting or gagging. * Nausea & vomiting Assessment & Plan Patient presenting with subacute N/V with limited ability to maintain consistent PO intake over course. 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 Malnutrition-related gastroparesis possible though considered less likely; possible eating disorder component given chronicityof malnutrition. - Thus far evaluation with unremarkable CMP/CBC, lipase 55, hs-trop <4 x 2, urinary hCG negative, UA clear, RVP negative, HIV neg, CXR clear, CT-AP without acute process, Utox + cannabinoids but otherwise negative. GI was consulted, EGD was done on 07/07 was unremarkable. Biopsies were taken from esophagus and stomach results are pending. Discussed with patient and mother tube feeding and theywere agreeable. - Cu level ordered - Zofran scheduled Q 8 hours. - Trial IV ativan prn, scopolamine patch - Trial PPI - Avoid cannabis - calorie count -pathology results from stomach and esophagus are unremakable - Psych consult for evaluation of eating disorder Grover Spaulding MD [facility] [employer] [employer] * Grover Spaulding MD - 07/10/2022 9:49 AM CST Daily Progress Note Division of Hospital Medicine Name: Isabel Churchill Today: July 10, 2022 : 2005 Age: 17 y.o. female Admit: 07/03/2022 Bed: [id number] Subjective Interval History: - patient is feeling better this morning. Stated that she vomited total 2 times yesterday. She was able to have generalized night. No nausea or vomiting this morning. - will plan to discharge home if she continues to keep food down with no significant nausea or vomiting. - reported blurring with reading and looking at her phone. Stated that blurring resolves when she put her grandmother's eyeglass. Patient declines headaches. Recommended outpatient ophthalmology evaluation. Objective Medications: Scheduled: enoxaparin, 30 mg, subcutaneous, Daily-2100 ergocalciferol, 50,000 Units, oral, Weekly famotidine, 10 mg, intravenous, Q12H FERMIN folic acid, 1 mg, oral, Daily lidocaine, 1 patch, transdermal, Daily multivitamin therapeutic, 1 tablet, oral, Daily ondansetron, 4 mg, intravenous, Q8H pantoprazole, 40 mg, intravenous, Daily scopolamine, 1 patch, transdermal, Q72H [Held by Provider] thiamine, 100 mg, oral, Daily Infusions: PRN: acetaminophen calcium carbonate diphenhydrAMINE LORazepam morphine ramelteon traMADoL Vitals: 24hr Min/Max: Temp Min: 36.3 ??C (97.3 ??F) Max: 36.9 ??C (98.4 ??F) Pulse Min: 72 Max: 109 BP Min: 103/79 Max: 142/92 Resp Min: 16 Max: 22 SpO2 Min: 98 % Max: 100 % Most Recent: Vitals: 07/10/22 0817 BP: 103/79 Pulse: 98 Resp: 16 Temp: 36.4 ??C (97.5 ??F) SpO2: 99% No intake or output data in the 24 hours ending 07/10/22 0953 Physical Exam Constitutional: Patient is cachectic Eyes: PERRL, EOMI, anicteric ENT: NCAT, oropharynx normal, moist mucus membranes Lungs: Clear to auscultation Cardiovascular: RRR, normal S1 and S2 GI: Soft, mild generalized tenderness. Skin: No new rashes, lesions or bruises Extremities: Normal without edema or cyanosis Neurologic: AOx4, CNII-XII intact Psychiatric: Normal affect and mood I have reviewed the patient's vital signs. Lab/Diagnostic Review: Recent Results (from the past 36 hour(s)) Basic metabolic panel Collection Time: 07/09/22 5:21 AM Result Value Ref Range Sodium 136 135 - 145 mmol/L Potassium, pl 3.7 3.3 - 4.9 mmol/L Chloride 101 97 - 110 mmol/L CO2 28 22 - 32 mmol/L Anion gap 7 2 - 15 mmol/L BUN 13 8 - 25 mg/dL Creatinine 0.91 0.40 - 1.00 mg/dL Glucose 92 70 - 199 mg/dL Calcium 9.2 8.5 - 10.3 mg/dL eGFR Collection Time: 07/09/22 5:21 AM Result Value Ref Range eGFR >90 90 - 130 mL/min/1.73 m2 Troponin I high-sensitivity Collection Time: 07/09/22 11:26 AM Result Value Ref Range Trop I hs <4 <=17 ng/L Basic metabolic panel Collection Time: 07/10/22 3:22 AM Result Value Ref Range Sodium 140 135 - 145 mmol/L Potassium, pl 3.9 3.3 - 4.9 mmol/L Chloride 102 97 - 110 mmol/L CO2 31 22 - 32 mmol/L Anion gap 7 2 - 15 mmol/L BUN 11 8 - 25 mg/dL Creatinine 1.00 0.40 - 1.00 mg/dL Glucose 92 70 - 199 mg/dL Calcium 9.6 8.5 - 10.3 mg/dL eGFR Collection Time: 07/10/22 3:22 AM Result Value Ref Range eGFR 84 (L) 90 - 130 mL/min/1.73 m2 I have reviewed the laboratory results. Imaging Results: XR Chest 1 View Narrative: EXAMINATION: 1 view chest radiograph Impression: The current study is compared with the prior radiograph dated 07/03/2022. The lungs are clear without pulmonary consolidation, pleural effusion, or pneumothorax. The cardiomediastinal silhouette is unchanged. Dictated by: Triston Sierra MD The radiology attending physician has personally reviewed this study, and had reviewed and/or edited this written report and agrees with it. Electronically signed by: Elizabeth Delvalle M.D. I have independently reviewed and interpreted . Assessment/Plan High serum vitamin B12 Assessment & Plan Hold supplementation Severe malnutrition (CMS/HCC) (HCC) Assessment & Plan Patient with chronically low BMI per chart review with current BMI 14 and reported 10 lb weight loss recently related to vomiting and poor po intake - RD consult - ADAT, Ensure TIDAC. - patient declined tube feeds will continue calorie count. 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 Ambulatory referral to Ophthalmology Chest pain, unspecified type Assessment & Plan Likely musculoskeletal in since it only happens after vomiting or gagging. * Nausea & vomiting Assessment & Plan Patient presenting with subacute N/V with limited ability to maintain consistent PO intake over course. 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 Malnutrition-related gastroparesis possible though considered less likely; possible eating disorder component given chronicityof malnutrition. - Thus far evaluation with unremarkable CMP/CBC, lipase 55, hs-trop <4 x 2, urinary hCG negative, UA clear, RVP negative, HIV neg, CXR clear, CT-AP without acute process, Utox + cannabinoids but otherwise negative. GI was consulted, EGD was done on 07/07 was unremarkable. Biopsies were taken from esophagus and stomach results are pending. Discussed with patient and mother tube feeding and theywere agreeable. - Cu level ordered - Zofran scheduled Q 8 hours. - Trial IV ativan prn, scopolamine patch - Trial PPI - Avoid cannabis - calorie count -pathology results from stomach and esophagus are unremakable Grover Spaulding MD [facility] [employer] [facility] * Grover Spaulding MD - 07/09/2022 3:33 PM CST Daily Progress Note Division of Hospital Medicine Name: Isabel Churchill Today: July 09, 2022 : 2005 Age: 17 y.o. female Admit: 07/03/2022 Bed: [id number] Subjective Interval History: - episode of left upper chest pain which seems to be recurrent associated with nausea and vomiting after breakfast. EKG and troponin were unremarkable. - increased Ativan dose of 0.5 from 0.25 mg q.6 hours p.r.n. for nausea. Continue scopolamine patchand scheduled Zofran. - continue Tylenol, morphine and tramadol p.r.n. for pain. - still reporting episodes of blurry vision. Will consider ophthalmology consult. Objective Medications: Scheduled: enoxaparin, 30 mg, subcutaneous, Daily-2100 ergocalciferol, 50,000 Units, oral, Weekly famotidine, 10 mg, intravenous, Q12H FERMIN folic acid, 1 mg, oral, Daily lidocaine, 1 patch, transdermal, Daily multivitamin therapeutic, 1 tablet, oral, Daily ondansetron, 4 mg, intravenous, Q8H pantoprazole, 40 mg, intravenous, Daily scopolamine, 1 patch, transdermal, Q72H [Held by Provider] thiamine, 100 mg, oral, Daily Infusions: PRN: acetaminophen calcium carbonate diphenhydrAMINE LORazepam morphine ramelteon traMADoL Vitals: 24hr Min/Max: Temp Min: 36.5 ??C (97.7 ??F) Max: 36.8 ??C (98.2 ??F) Pulse Min: 85 Max: 136 BP Min: 91/58 Max: 142/92 Resp Min: 14 Max: 16 SpO2 Min: 98 % Max: 99 % Most Recent: Vitals: 07/09/22 1540 BP: 142/92 Pulse: 98 Resp: 16 Temp: 36.8 ??C (98.2 ??F) SpO2: 98% No intake or output data in the 24 hours ending 07/09/22 1551 Physical Exam Constitutional: Patient is cachectic Eyes: PERRL, EOMI, anicteric ENT: NCAT, oropharynx normal, moist mucus membranes Lungs: Clear to auscultation Cardiovascular: RRR, normal S1 and S2 GI: Soft, mild generalized tenderness. Skin: No new rashes, lesions or bruises Extremities: Normal without edema or cyanosis Neurologic: AOx4, CNII-XII intact Psychiatric: Normal affect and mood I have reviewed the patient's vital signs. Lab/Diagnostic Review: Recent Results (from the past 36 hour(s)) Basic metabolic panel Collection Time: 07/08/22 6:23 AM Result Value Ref Range Sodium 138 135 - 145 mmol/L Potassium, pl 4.1 3.3 - 4.9 mmol/L Chloride 100 97 - 110 mmol/L CO2 26 22 - 32 mmol/L Anion gap 12 2 - 15 mmol/L BUN 13 8 - 25 mg/dL Creatinine 0.93 0.40 - 1.00 mg/dL Glucose 90 70 - 199 mg/dL Calcium 9.6 8.5 - 10.3 mg/dL eGFR Collection Time: 07/08/22 6:23 AM Result Value Ref Range eGFR >90 90 - 130 mL/min/1.73 m2 Basic metabolic panel Collection Time: 07/09/22 5:21 AM Result Value Ref Range Sodium 136 135 - 145 mmol/L Potassium, pl 3.7 3.3 - 4.9 mmol/L Chloride 101 97 - 110 mmol/L CO2 28 22 - 32 mmol/L Anion gap 7 2 - 15 mmol/L BUN 13 8 - 25 mg/dL Creatinine 0.91 0.40 - 1.00 mg/dL Glucose 92 70 - 199 mg/dL Calcium 9.2 8.5 - 10.3 mg/dL eGFR Collection Time: 07/09/22 5:21 AM Result Value Ref Range eGFR >90 90 - 130 mL/min/1.73 m2 Troponin I high-sensitivity Collection Time: 07/09/22 11:26 AM Result Value Ref Range Trop I hs <4 <=17 ng/L I have reviewed the laboratory results. Imaging Results: XR Chest 1 View Narrative: EXAMINATION: 1 view chest radiograph Impression: The current study is compared with the prior radiograph dated 07/03/2022. The lungs are clear without pulmonary consolidation, pleural effusion, or pneumothorax. The cardiomediastinal silhouette is unchanged. Dictated by: Triston Sierra MD I have independently reviewed and interpreted . Assessment/Plan High serum vitamin B12 Assessment & Plan Hold supplementation Severe malnutrition (CMS/HCC) (HCC) Assessment & Plan Patient with chronically low BMI per chart review with current BMI 14 and reported 10 lb weight loss recently related to vomiting and poor po intake - RD consult - ADAT, Ensure TIDAC. - patient declined tube feeds will continue calorie count. 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 Will Consider ophthalmology consult Chest pain, unspecified type Assessment & Plan - Constant of L upper chest/shoulder region - worse with palpation and arm movement - hs-trop/EKG unremarkable; suspect MSK in etiology - Trial lidocaine patch, tylenol - PT/OT * Nausea & vomiting Assessment & Plan Patient presenting with subacute N/V with limited ability to maintain consistent PO intake over course. 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 Malnutrition-related gastroparesis possible though considered less likely; possible eating disorder component given chronicityof malnutrition. - Thus far evaluation with unremarkable CMP/CBC, lipase 55, hs-trop <4 x 2, urinary hCG negative, UA clear, RVP negative, HIV neg, CXR clear, CT-AP without acute process, Utox + cannabinoids but otherwise negative. GI was consulted, EGD was done on 07/07 was unremarkable. Biopsies were taken from esophagus and stomach results are pending. Discussed with patient and mother tube feeding and theywere agreeable. - Cu level ordered - Zofran scheduled Q 8 hours. - Trial IV ativan prn, scopolamine patch - Trial PPI - Avoid cannabis - calorie count -pathology results from stomach and esophagus are unremakable Grover Spaulding MD [facility] [employer] [facility] * Angelica Barnes RN - 07/09/2022 11:58 AM CST Ms. Churchill had slovenian toast for breakfast with no complaint of nausea. Twenty mins later she pressed call light with complaints of abdominal and chest pain. When asked what the cause was she stated she had taken some aleve for menstrual cramps per the direction of her mom. I explained the importance of not taking meds that MD has not approved. She was given Morphine and ativan, EKG and labs ordered. She is now asleep in room with no signs of distress. Will continue to monitor [facility] * Grover Spaulding MD - 07/08/2022 4:39 PM CST Daily Progress Note Division of Hospital Medicine Name: Isabel Churchill Today: July 08, 2022 : 2005 Age: 17 y.o. female Admit: 07/03/2022 Bed: [id number] Subjective Interval History: - pathology from esophagus, stomach and duodenum were all unremarkable. Nausea and vomiting likely secondary to cannabis. - patient declined NG placement and wanted to try oral feeding, advance diet as tolerated and calorie count. Objective Medications: Scheduled: enoxaparin, 30 mg, subcutaneous, Daily-2100 ergocalciferol, 50,000 Units, oral, Weekly famotidine, 10 mg, intravenous, Q12H FERMIN folic acid, 1 mg, oral, Daily lidocaine, 1 patch, transdermal, Daily multivitamin therapeutic, 1 tablet, oral, Daily ondansetron, 4 mg, intravenous, Q8H pantoprazole, 40 mg, intravenous, Daily scopolamine, 1 patch, transdermal, Q72H [Held by Provider] thiamine, 100 mg, oral, Daily Infusions: PRN: acetaminophen calcium carbonate diphenhydrAMINE LORazepam ramelteon traMADoL Vitals: 24hr Min/Max: Temp Min: 36.5 ??C (97.7 ??F) Max: 36.8 ??C (98.2 ??F) Pulse Min: 81 Max: 136 BP Min: 101/81 Max: 122/86 Resp Min: 16 Max: 16 SpO2 Min: 96 % Max: 97 % Most Recent: Vitals: 07/08/22 1554 BP: Pulse: (!) 136 Resp: Temp: SpO2: No intake or output data in the 24 hours ending 07/08/22 1641 Physical Exam Constitutional: Patient is cachectic Eyes: PERRL, EOMI, anicteric ENT: NCAT, oropharynx normal, moist mucus membranes Lungs: Clear to auscultation Cardiovascular: RRR, normal S1 and S2 GI: Soft, mild generalized tenderness. Skin: No new rashes, lesions or bruises Extremities: Normal without edema or cyanosis Neurologic: AOx4, CNII-XII intact Psychiatric: Normal affect and mood I have reviewed the patient's vital signs. Lab/Diagnostic Review: Recent Results (from the past 36 hour(s)) Basic metabolic panel Collection Time: 07/07/22 6:48 AM Result Value Ref Range Sodium 138 135 - 145 mmol/L Potassium, pl 4.0 3.3 - 4.9 mmol/L Chloride 98 97 - 110 mmol/L CO2 26 22 - 32 mmol/L Anion gap 14 2 - 15 mmol/L BUN 12 8 - 25 mg/dL Creatinine 0.92 0.40 - 1.00 mg/dL Glucose 92 70 - 199 mg/dL Calcium 9.6 8.5 - 10.3 mg/dL Lead, blood Collection Time: 07/07/22 6:48 AM Result Value Ref Range Lead <1.0 <5.0 mcg/dL eGFR Collection Time: 07/07/22 6:48 AM Result Value Ref Range eGFR >90 90 - 130 mL/min/1.73 m2 Basic metabolic panel Collection Time: 07/08/22 6:23 AM Result Value Ref Range Sodium 138 135 - 145 mmol/L Potassium, pl 4.1 3.3 - 4.9 mmol/L Chloride 100 97 - 110 mmol/L CO2 26 22 - 32 mmol/L Anion gap 12 2 - 15 mmol/L BUN 13 8 - 25 mg/dL Creatinine 0.93 0.40 - 1.00 mg/dL Glucose 90 70 - 199 mg/dL Calcium 9.6 8.5 - 10.3 mg/dL eGFR Collection Time: 07/08/22 6:23 AM Result Value Ref Range eGFR >90 90 - 130 mL/min/1.73 m2 I have reviewed the laboratory results. Imaging Results: MRI Brain W WO Contrast Narrative: EXAMINATION: Magnetic resonance imaging (MRI) of the brain and brainstem without and with contrast HISTORY: Persistent nausea and vomiting, blurry vision, TECHNIQUE: Multiplanar multi-weighted MRI of the brain and brainstem was performed without and with intravenous contrast using the general brain protocol. Contrast information: 8 mL Dotarem COMPARISON: CT head 07/04/2022 FINDINGS: The scalp and calvarium are normal. The superior sagittal sinus demonstrates normal venous flow. The corpus callosum is normal in shape and signal intensity. 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 The pituitary and sella are normal. The brainstem and craniocervical junction are unremarkable. Stepwise low-grade anterolisthesis of C2 on C3 and C3 on C4. Diffusion weighted images reveal no hyperintensities to suggest acute cerebral infarction. The susceptibility weighted sequences reveal no evidence of acute or chronic hemorrhage. The ventricles are normal in size and position without evidence of hydrocephalus . There are no areas of abnormal contrast enhancement. The paranasal sinuses are normal. The visualized portions of the mastoids are unremarkable. The orbits appear normal. Normal flow voids are demonstrated in the carotid arteries and basilar artery. 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 Otherwise, unremarkable MRI appearance of the brain without findings to suggest cause or consequence of patient's symptoms. Dictated by: Juvenal Salazar MD The radiology attending physician has personally reviewed this study, and had reviewed and/or edited this written report and agrees with it. Electronically signed by: Beatrice Silva M.D. EEG Extended EEG Report Patient Name: Isabel Churchill [facility] Medical Record Number (MRN): [id number] Formerly [facility] Record: No Soarian MRN Date of (): 2005 EEG Date: 07/04/2022 Ordering Provider: Shanique Bazan MD CC: Rita Lynn Start Time: 07/04/2022 2:49:55 PM End Time: 07/04/2022 3:56:57 PM Introduction: Ms. Churchill is a 17 y.o. female without significant past medical history who presented with dystonic movements in setting of intractable nausea and vomiting after ceasing cannabis use, concerning for seizures. EEG was performed to evaluate for epileptiform activity. This is a 32 channel EEG recording acquired on a [employer] EEG-1200 acquisition system. Scalp electrodes were placed according to the international 10-20 System. The analog EEG was filtered from 1-70 Hz and digitally sampled at 200 Hz. The record was then reformatted for review in bipolar and referential montages. EEG Description: There was moderate EMG and movement artifact during the recording. The awake background included a 9 Hz posterior dominant rhythm which attenuated with eye opening and activity. During drowsiness, identified by ocular signs and alpha attenuation, there was intermittent, diffuse, asynchronous theta activity admixed with 2-4 Hz polymorphic frontotemporal delta activity. As the record progressed, stage II sleep was identified by vertex waves, sleep spindles and K-complexes. Hyperventilation was not performed. Photic strobe stimulation elicited prominent driving. No photoparoxysmal response was elicited. There were no focal, lateralized or epileptiform abnormalities. There was a single event recorded occurring at 15:47 PM. The patient reported she had blureed vision, more prominent in the right eye. There were no EEG changes with this event. Interpretation: This is a normal awake, stage I, and stage II sleep extended EEG. The recorded event did not have EEG correlate. By signing this report, the attending Electroencephalographer certifies that he/she personally reviewed the electrodiagnostics study and has edited this report to fully conform with his/her intent. Signing Attending: Miguel Mitchell MD I have independently reviewed and interpreted . Assessment/Plan High serum vitamin B12 Assessment & Plan Hold supplementation Severe malnutrition (CMS/HCC) (HCC) Assessment & Plan Patient with chronically low BMI per chart review with current BMI 14 and reported 10 lb weight loss recently related to vomiting and poor po intake - RD consult - ADAT, Ensure TIDAC - Dobbhoff placement tomorrow and starting tube feeds. Vision changes Assessment & Plan - Patient reports intermittent blurry vision over both eyes over the past several days (not presentduring encounter) - Unclear etiology - possible orthostatic; given history concern for 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; limited concern for optic neuritis given bilateral involvement - CTM, consider head imaging and ophthalmology consult if recurrent/ongoing during admission Chest pain, unspecified type Assessment & Plan - Constant of L upper chest/shoulder region - worse with palpation and arm movement - hs-trop/EKG unremarkable; suspect MSK in etiology - Trial lidocaine patch, tylenol - PT/OT * Nausea & vomiting Assessment & Plan Patient presenting with subacute N/V with limited ability to maintain consistent PO intake over course. 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 Malnutrition-related gastroparesis possible though considered less likely; possible eating disorder component given chronicityof malnutrition. - Thus far evaluation with unremarkable CMP/CBC, lipase 55, hs-trop <4 x 2, urinary hCG negative, UA clear, RVP negative, HIV neg, CXR clear, CT-AP without acute process, Utox + cannabinoids but otherwise negative. GI was consulted, EGD was done on 07/07 was unremarkable. Biopsies were taken from esophagus and stomach results are pending. Discussed with patient and mother tube feeding and theywere agreeable. - Cu level ordered - Zofran scheduled Q 8 hours. - Trial IV ativan prn, scopolamine patch - Trial PPI - Avoid cannabis - calorie count -pathology results from stomach and esophagus are unremakable Grover Spaulding MD [employer] [facility] * Amparo Carmen, PT - 07/08/2022 3:44 PM CST Physical Therapy Physical Therapy Initial Assessment NOTE: This is a summary note for the obando assessments completed during the evaluation session. For full details, review chart review for all flowsheets documented on by this physical therapist on thisdate. Vital signs documented in vital signs flowsheet. Assessment Assessment Problem List Comments: PT diagnosis: pt presents with n/v and FTT with no skilled PT needs in acutecare setting. Plan Plan Plan : Discharge, If this is the last note, consider this the discharge summary PT Recommendation and Plan Recommendation/Plan PT Recommendation/Plan: Home with family PT Recommendation/Plan Comments: pt agrees with recommendation PT Frequency during current admission: One time visit (Discharge from this service) PT - OK to Discharge: Yes PT Evaluation Complete: Yes General Information General Chart Reviewed: Yes Session Type: Evaluation (initial discharge) PT Received On: 07/08/22 Safe Environment: Arm Band Checked, Call Light within Reach, Notified RN, Overbed Table within Reach (pt found standing at sink, left sitting EOB; RN Serese aware) Subjective: Agreeable to Therapy Subjective Comment: pt states she walked down to cafeteria with mom earlier today without difficulties PT Missed Visit Reason: Patient declined (pt declined, not giving a real reason as to why; denies nausea; states she is walking around her room with her grandmother) Family/Caregiver Present: No Physical Therapy-Patient Goal: take care of self at home Prior Function Prior Function Level of Harrison: Independent functional transfers, Independent with ambulation Lives With: Other (Comment) (grandmother) Receives Help From: Family (FT from grandmother) Fall within the last 6 months: Yes Fall within the last 6 months comment: 1 fall at [facility] prior to admit Home Living Home Living Type of Home: House Home Layout: Two level, Bed/bath upstairs, Stairs with rails # of Steps-Railed: 12 Home Access: Stairs to enter without rails Entrance Stairs-Rails: None Entrance Stairs-Number of Steps: 1 Home Mobility Equipment: None Precautions Precautions Precautions: Fall risk Precaution Comments: While working with patient, this therapist wore gloves and KN95 mask. Pain Pain Assessment Pain Assessment: No/denies pain Cognition Cognition Following Commands: Follows all commands and directions without difficulty Compliance/Behavior: Easy to engage 6 Clicks Basic Mobility - 6 Click How much difficulty does the patient have: Turning over in bed: None How much difficulty does the patient currently have: Sitting down and standing up from a chair witharms?: None How much difficulty does the patient have: Moving from lying on back to sitting on the side of the bed?: None How much difficulty does the patient have: Moving to and from a bed to a chair including wheelchair?: None How much help does the patient currently need: Walk in hospital room?: None How much help from another person does the patient currently need: Climbing 3-5 steps with a railing?: None Total 6 Click Score (range 6-24): 24 Score Interpretation: 24 Bed Mobility Bed Mobility Bed Mobility: No Transfers Transfers Transfer: Yes Transfer 1 Transfer From 1: Sit Transfer Type 1: To and from Transfer to 1: Stand Transfer Device 1: No device Transfer Level of Assistance 1: Independent Balance Static Sitting Balance Static Sitting-Balance Support: Feet supported Static Sitting-Sitting Surface: Bed Static Sitting-Level of Assistance: Independent Static Standing Balance Static Standing-Balance Support: No upper extremity supported Static Standing-Standing Surface: Floor Static Standing-Level of Assistance: Independent Ambulation Ambulation Ambulation: Yes Ambulation 1 Distance (ft) 1: 80 Device 1: No device Assistance 1: Independent Ambulation Comments 1: wanted to stay in room Stairs Stairs Stairs: No Stair Comments: no concerns Curbs RLE Assessment RLE Assessment RLE Assessment: (hip flex, knee ext, ankle DF greater than 3/5) LLE Assessment LLE Assessment LLE Assessment: (hip flex, knee ext, ankle DF greater than 3/5) Equipment Used Other Comments Other Comments Other PT Comments: Patient is independent with ambulation. She states she had a few bites of salad and was starting to feel nauseous. RN Mohini del real PT Goals Multi-Disciplinary Problems (from Physical Therapy) Active Problems Not on file [facility] [employer] [facility] * Kelly Fam OT - 07/08/2022 3:40 PM CST Occupational Therapy 07/08/22 1539 General Subjective Comment Occupational therapy orders received and chart reviewed. Patient educated on purpose of OT consult and benefits of therapy. Patient voiced understanding and states she's been performing all self care and mobility independently since admission and denies any concerns to warrant OTassessment. Will complete orders. notified. OT Missed Visit Reason Patient declined [facility] [employer] [facility] * Grover Spaulding MD - 07/07/2022 4:03 PM CST Daily Progress Note Division of Hospital Medicine Name: Isabel Churchill Today: July 07, 2022 : 2005 Age: 17 y.o. female Admit: 07/03/2022 Bed: [id number] Subjective Interval History: -EGD was done today that showed no abnormalities. Biopsies were taken results are pending. - will plan to place the above and start tube feeds. IR is going to do tomorrow. Objective Medications: Scheduled: enoxaparin, 30 mg, subcutaneous, Daily-2100 ergocalciferol, 50,000 Units, oral, Weekly famotidine, 10 mg, intravenous, Q12H FERMIN folic acid, 1 mg, oral, Daily lidocaine, 1 patch, transdermal, Daily multivitamin therapeutic, 1 tablet, oral, Daily pantoprazole, 40 mg, intravenous, Daily scopolamine, 1 patch, transdermal, Q72H [Held by Provider] thiamine, 100 mg, oral, Daily Infusions: PRN: acetaminophen calcium carbonate diphenhydrAMINE LORazepam ondansetron ramelteon traMADoL Vitals: 24hr Min/Max: Temp Min: 36.2 ??C (97.2 ??F) Max: 37.3 ??C (99.2 ??F) Pulse Min: 90 Max: 127 BP Min: 99/73 Max: 133/93 Resp Min: 16 Max: 26 SpO2 Min: 97 % Max: 100 % Most Recent: Vitals: 07/07/22 1314 BP: 133/93 Pulse: (!) 127 Resp: 18 Temp: 36.7 ??C (98.1 ??F) SpO2: 99% Intake/Output Summary (Last 24 hours) at 07/07/2022 1611 Last data filed at 07/07/2022 1144 Gross per 24 hour Intake 200 ml Output 0 ml Net 200 ml Physical Exam Constitutional: Patient is cachectic Eyes: PERRL, EOMI, anicteric ENT: NCAT, oropharynx normal, moist mucus membranes Lungs: Clear to auscultation Cardiovascular: RRR, normal S1 and S2 GI: Soft, mild generalized tenderness. Skin: No new rashes, lesions or bruises Extremities: Normal without edema or cyanosis Neurologic: AOx4, CNII-XII intact Psychiatric: Normal affect and mood I have reviewed the patient's vital signs. Lab/Diagnostic Review: Recent Results (from the past 36 hour(s)) Protime-INR Collection Time: 07/06/22 10:03 PM Result Value Ref Range PT 13.5 9.2 - 13.5 sec INR 1.2 0.9 - 1.2 Basic metabolic panel Collection Time: 07/07/22 6:48 AM Result Value Ref Range Sodium 138 135 - 145 mmol/L Potassium, pl 4.0 3.3 - 4.9 mmol/L Chloride 98 97 - 110 mmol/L CO2 26 22 - 32 mmol/L Anion gap 14 2 - 15 mmol/L BUN 12 8 - 25 mg/dL Creatinine 0.92 0.40 - 1.00 mg/dL Glucose 92 70 - 199 mg/dL Calcium 9.6 8.5 - 10.3 mg/dL eGFR Collection Time: 07/07/22 6:48 AM Result Value Ref Range eGFR >90 90 - 130 mL/min/1.73 m2 I have reviewed the laboratory results. Imaging Results: MRI Brain W WO Contrast Narrative: EXAMINATION: Magnetic resonance imaging (MRI) of the brain and brainstem without and with contrast HISTORY: Persistent nausea and vomiting, blurry vision, TECHNIQUE: Multiplanar multi-weighted MRI of the brain and brainstem was performed without and with intravenous contrast using the general brain protocol. Contrast information: 8 mL Dotarem COMPARISON: CT head 07/04/2022 FINDINGS: The scalp and calvarium are normal. The superior sagittal sinus demonstrates normal venous flow. The corpus callosum is normal in shape and signal intensity. 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 The pituitary and sella are normal. The brainstem and craniocervical junction are unremarkable. Stepwise low-grade anterolisthesis of C2 on C3 and C3 on C4. Diffusion weighted images reveal no hyperintensities to suggest acute cerebral infarction. The susceptibility weighted sequences reveal no evidence of acute or chronic hemorrhage. The ventricles are normal in size and position without evidence of hydrocephalus . There are no areas of abnormal contrast enhancement. The paranasal sinuses are normal. The visualized portions of the mastoids are unremarkable. The orbits appear normal. Normal flow voids are demonstrated in the carotid arteries and basilar artery. 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 Otherwise, unremarkable MRI appearance of the brain without findings to suggest cause or consequence of patient's symptoms. Dictated by: Juvenal Salazar MD The radiology attending physician has personally reviewed this study, and had reviewed and/or edited this written report and agrees with it. Electronically signed by: Beatrice Silva M.D. EEG Extended EEG Report Patient Name: Isabel Churchill [facility] Medical Record Number (MRN): [id number] Formerly [facility] Record: No Soarian MRN Date of (): 2005 EEG Date: 07/04/2022 Ordering Provider: Shanique Bazan MD CC: Rita Lynn Start Time: 07/04/2022 2:49:55 PM End Time: 07/04/2022 3:56:57 PM Introduction: Ms. Churchill is a 17 y.o. female without significant past medical history who presented with dystonic movements in setting of intractable nausea and vomiting after ceasing cannabis use, concerning for seizures. EEG was performed to evaluate for epileptiform activity. This is a 32 channel EEG recording acquired on a [employer] EEG-1200 acquisition system. Scalp electrodes were placed according to the international 10-20 System. The analog EEG was filtered from 1-70 Hz and digitally sampled at 200 Hz. The record was then reformatted for review in bipolar and referential montages. EEG Description: There was moderate EMG and movement artifact during the recording. The awake background included a 9 Hz posterior dominant rhythm which attenuated with eye opening and activity. During drowsiness, identified by ocular signs and alpha attenuation, there was intermittent, diffuse, asynchronous theta activity admixed with 2-4 Hz polymorphic frontotemporal delta activity. As the record progressed, stage II sleep was identified by vertex waves, sleep spindles and K-complexes. Hyperventilation was not performed. Photic strobe stimulation elicited prominent driving. No photoparoxysmal response was elicited. There were no focal, lateralized or epileptiform abnormalities. There was a single event recorded occurring at 15:47 PM. The patient reported she had blureed vision, more prominent in the right eye. There were no EEG changes with this event. Interpretation: This is a normal awake, stage I, and stage II sleep extended EEG. The recorded event did not have EEG correlate. By signing this report, the attending Electroencephalographer certifies that he/she personally reviewed the electrodiagnostics study and has edited this report to fully conform with his/her intent. Signing Attending: Miguel Mitchell MD I have independently reviewed and interpreted . Assessment/Plan Acute dystonic reaction due to drugs Assessment & Plan Likely due to heavy use of compazine [...] IV Benadryl prn dystonia - symptoms resolved High serum vitamin B12 Assessment & Plan Hold supplementation Severe malnutrition (CMS/HCC) ([facility]) Assessment & Plan Patient with chronically low BMI per chart review with current BMI 14 and reported 10 lb weight loss recently related to vomiting and poor po intake - RD consult - ADAT, Ensure TIDAC - Dobbhoff placement tomorrow and starting tube feeds. Vision changes Assessment & Plan - Patient reports intermittent blurry vision over both eyes over the past several days (not presentduring encounter) - Unclear etiology - possible orthostatic; given history concern for 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; limited concern for optic neuritis given bilateral involvement - CTM, consider head imaging and ophthalmology consult if recurrent/ongoing during admission Chest pain, unspecified type Assessment & Plan - Constant of L upper chest/shoulder region - worse with palpation and arm movement - hs-trop/EKG unremarkable; suspect MSK in etiology - Trial lidocaine patch, tylenol - PT/OT * Nausea & vomiting Assessment & Plan Patient presenting with subacute N/V with limited ability to maintain consistent PO intake over course. 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 Malnutrition-related gastroparesis possible though considered less likely; possible eating disorder component given chronicityof malnutrition. - Thus far evaluation with unremarkable CMP/CBC, lipase 55, hs-trop <4 x 2, urinary hCG negative, UA clear, RVP negative, HIV neg, CXR clear, CT-AP without acute process, Utox + cannabinoids but otherwise negative. GI was consulted, EGD was done on 07/07 was unremarkable. Biopsies were taken from esophagus and stomach results are pending. Discussed with patient and mother tube feeding and theywere agreeable. - Cu level ordered - Zofran pediatric dosed - Trial IV ativan prn, scopolamine patch - Trial PPI - Avoid cannabis - IR to place Dobbhoff - follow-up pathology results from stomach and esophagus. Grover Spaulding MD [employer] * Anna Feliciano, RD - 07/07/2022 2:10 PM CST Nutrition Assessment Reason for Assessment: Follow Up and Calorie Count Encounter Date: 07/07/22 2:10 PM Patient is a 17 y.o. female with chief complaint of nausea. LOS is 4 days. HPI: Isabel Churchill is an 17yF with no remarkable PMH presenting with multiple complaints. Patient reports over the past 3wks she has had onset of daily nausea/vomiting (NBNB) with associated non-radiating epigastric pain that is worse with emesis and movement. She is unsure of any changeswith PO intake. She states there is no consistent timeframe where she vomits following PO intake. She last tolerated a meal yesterday. She states fluid PO intake has been reasonable. He last BM was 3days ago, which is atypical for her. She additionally reports left upper chest pain that is relatively constant and worsens with palpation and large breaths - she states paresthesias over the given area. She endorses generalized weakness and 10lb wt loss over this time course. Over the last few daysshe has noted blurry vision intermittently that self-resolves. She additionally endorses onset of facial spasms that started today over bilateral V3 regions, lasting 1-2min. She states up until 3wks ago she was smoking marijuana daily. She endorses a normal appetite at baseline. Per chart review her wt was 102lbs in 02/2021 where she presented with similar symptoms and unremarkable workup (she, however, endorses different severity of symptoms at this time). She denies fever, cough, hematochezia, urinary symptoms. She originally presented to [facility], though left AMA on 07/01 due to perceived poor care - subsequently presenting to [facility] on the same day with unremarkable labs/workup. Of note it was reported she had a fall in the restroom without LOC/head trauma with wrist films negative. Interval History: Last night pt complained of itching around IV site, she was given IV Benadryl. Shortly afterwards, the RN found the pt inducing vomiting by putting her fingers down her throat, reporting that she felt something sitting in her chest. Pt was then administered IV Zofran and felt better. Pt has been NPO for EGD all morning. Reports she is feeling better today, likely because she has not been eating. Pt had upper GI endoscopy today: Normal esophagus. Biopsied. - Normal stomach. Biopsied. - Normal duodenal bulb and second portion of the duodenum. Objective History reviewed. No pertinent past medical history. History reviewed. No pertinent surgical history. Social History Tobacco Use Smoking status: Some Days Types: Vaping Smokeless tobacco: None Substance and Sexual Activity Drug use: Yes Types: Marijuana Sexual activity: None Alcohol Use: Not on file Family History Problem Relation Age of Onset Ovarian cancer Mother Anthropometrics: Wt Readings from Last 3 Encounters: 07/04/22 40.1 kg (88 lb 8 oz) (<1 %, Z= -2.91)* * Growth percentiles are based on CDC (Girls, 2-20 Years) data. Anthropometrics Weight: 40.1 kg (88 lb 8 oz) Admission Weight : 42.1 kg Weight Change: -1.95 kg (-4.31 lbs) IBW/kg (Calculated) : 63.5 kg Height: 172.7 cm (5' 8 ) Weight in (lb) to have BMI = 25: 164.1 BMI (Calculated): 13.5 Nutrition Needs Calculations: Calculated Energy Needs Using Equations Weight: 40.1 kg (88 lb 8 oz) Height: 172.7 cm (5' 8 ) Vital Signs: BP: 133/93 Temp: 36.7 ??C (98.1 ??F) Pulse: (!) 127 Resp: 18 SpO2: 99 % Medications: Scheduled Meds: enoxaparin, 30 mg, subcutaneous, Daily-2100 ergocalciferol, 50,000 Units, oral, Weekly famotidine, 10 mg, intravenous, Q12H FERMIN folic acid, 1 mg, oral, Daily lidocaine, 1 patch, transdermal, Daily multivitamin therapeutic, 1 tablet, oral, Daily pantoprazole, 40 mg, intravenous, Daily scopolamine, 1 patch, transdermal, Q72H [Held by Provider] thiamine, 100 mg, oral, Daily Continuous Infusions: PRN Meds: acetaminophen calcium carbonate diphenhydrAMINE LORazepam ondansetron ramelteon Lab Review: Sodium Date Value Ref Range Status 07/07/2022 138 135 - 145 mmol/L Final Potassium, pl Date Value Ref Range Status 07/07/2022 4.0 3.3 - 4.9 mmol/L Final BUN Date Value Ref Range Status 07/07/2022 12 8 - 25 mg/dL Final Creatinine Date Value Ref Range Status 07/07/2022 0.92 0.40 - 1.00 mg/dL Final Calcium Date Value Ref Range Status 07/07/2022 9.6 8.5 - 10.3 mg/dL Final No results found for: HGBA1C, HDL, LDLCALC, CHOL, TRIG Nursing Assessment: Intake/Output Summary (Last 24 hours) at 07/07/2022 1410 Last data filed at 07/07/2022 1144 Gross per 24 hour Intake 200 ml Output 0 ml Net 200 ml Gastrointestinal Gastrointestinal (WDL): Within Defined Limits Abdomen Inspection: Flat Bowel Sounds (All Quadrants): Hypoactive Palpation: Soft, Nontender Last BM Date: 07/03/22 (per patient) GI Symptoms: Nausea Nausea Precipitating Factors: Medication Relieved by: Unrelieved (Comment) Last BM Date: 07/03/22 (per patient) Rex Scale Score: 20 Skin Integrity: Rash Dietary Orders (From admission, onward) Start Ordered 07/07/22 1327 Adult Diet Clear Liquid Diet effective now Question: ([facility]) Diet type Answer: Clear Liquid 07/07/22 1327 07/05/22 1700 Oral Nutrition Supplements Select Supplement: Ensure Clear - Apple; Quantity (# of cans): 1 can All Meals Question Answer Comment Select Supplement: Ensure Clear - Apple Quantity (# of cans): 1 can 07/05/22 1442 Impression: Stopped by to see the pt this afternoon. She was in the shower. Pt's mother in room. States the pt continues to c/o nausea and continues to vomit. She has not attempted to eat much and has not kept food down when attempting to eat. The pt meets criteria for acute severe malnutrition. Recommend starting TPN while work up of her nausea and vomiting continues ASPEN Malnutrition Assessment: Acute Illness/Injury Severe Energy Intake: < or equal to 50% energy intake compared to estimated energy needs > (or equalto) 5 days Weight Loss: > 5% in 1 month Patient Meets Criteria for Severe Malnutrition: Yes ASPEN/AND Malnutrition Screening: Acute illnessor injury severe NUTRITION DIAGNOSIS Nutrition Diagnosis 1: Protein-Calorie Malnutrition - Severe Related to: Acute illness/injury, Nausea, Vomiting, Intolerance Evidenced by: BMI less than 16, PO under 50%, Weight loss, Patient interview INTERVENTION Diet as tolerated Consult nutrition support service for TPN. GOALS / MONITORING: Goals: Adequate nutrition to meet estimated needs by next assessment, Prevent further unintended weight loss during admission Interventions: Parenteral nutrition administration, Meals and snacks, Medical food supplement, Initial assessment Monitoring and Evaluation: Appetite, Hydration status, Labs, Supplement tolerance, PO intake, TPN tolerance, Stool patterns, Weight changes, Electrolyte changes Anna Feliciano RD [phone] NG PARTS SEWER * Jamal Claros - 07/07/2022 11:40 AM CST Spiritual Care Note Balcony Worker Jamal Claros D.Min., [facility] 07/07/2022 1140 hrs 07/07/22 1130 Time Spent Start Time 1130 Stop Time 1140 Time Calculation (min) 10 min Patient Spiritual Assessment Spirituality Assessed Focus of Care Clinical Encounter Type Visited With Family;Patient not available (Pt at testing) Response Type Routine visit Routine Visit Introduction Reason for visit Support Referral From Nurse Referral To Balcony Worker Outcomes and Progress Demonstrating care and respect Achieved Interventions Interventions Offer emotional support Plan Future Plan Balcony Worker will make a follow-up visit. NG PARTS SEWER * Kati Hazel, PT - 07/07/2022 11:00 AM CST Physical Therapy 07/07/22 1100 General PT Missed Visit Reason Procedure/testing/appointment;Unavailable Other Comments Other PT Comments In AM Pt. declined; awaiting endoscopy- asked PT to return later. PM pt. showering. Per RN pt. is mobilizing independently in room NG PARTS SEWER * Grover Spaulding MD - 07/06/2022 4:11 PM CST Daily Progress Note Division of Hospital Medicine Name: Isabel Churchill Today: July 07, 2022 : 2005 Age: 17 y.o. female Admit: 07/03/2022 Bed: [place] [id number] Subjective Interval History: - persistent episodes of nausea/vomiting with abdominal pain. Objective Medications: Scheduled: enoxaparin, 30 mg, subcutaneous, Daily-2100 ergocalciferol, 50,000 Units, oral, Weekly famotidine, 10 mg, intravenous, Q12H FERMIN folic acid, 1 mg, oral, Daily lidocaine, 1 patch, transdermal, Daily multivitamin therapeutic, 1 tablet, oral, Daily pantoprazole, 40 mg, intravenous, Daily scopolamine, 1 patch, transdermal, Q72H [Held by Provider] thiamine, 100 mg, oral, Daily Infusions: PRN: acetaminophen calcium carbonate diphenhydrAMINE LORazepam ondansetron ramelteon traMADoL Vitals: 24hr Min/Max: Temp Min: 36.2 ??C (97.2 ??F) Max: 37.3 ??C (99.2 ??F) Pulse Min: 90 Max: 127 BP Min: 99/73 Max: 133/93 Resp Min: 16 Max: 26 SpO2 Min: 97 % Max: 100 % Most Recent: Vitals: 07/07/22 1314 BP: 133/93 Pulse: (!) 127 Resp: 18 Temp: 36.7 ??C (98.1 ??F) SpO2: 99% Intake/Output Summary (Last 24 hours) at 07/07/2022 1612 Last data filed at 07/07/2022 1144 Gross per 24 hour Intake 200 ml Output 0 ml Net 200 ml Physical Exam Constitutional: Patient is cachectic Eyes: PERRL, EOMI, anicteric ENT: NCAT, oropharynx normal, moist mucus membranes Lungs: Clear to auscultation Cardiovascular: RRR, normal S1 and S2 GI: Soft, mild generalized tenderness. Skin: No new rashes, lesions or bruises Extremities: Normal without edema or cyanosis Neurologic: AOx4, CNII-XII intact Psychiatric: Normal affect and mood I have reviewed the patient's vital signs. Lab/Diagnostic Review: Recent Results (from the past 36 hour(s)) Protime-INR Collection Time: 07/06/22 10:03 PM Result Value Ref Range PT 13.5 9.2 - 13.5 sec INR 1.2 0.9 - 1.2 Basic metabolic panel Collection Time: 07/07/22 6:48 AM Result Value Ref Range Sodium 138 135 - 145 mmol/L Potassium, pl 4.0 3.3 - 4.9 mmol/L Chloride 98 97 - 110 mmol/L CO2 26 22 - 32 mmol/L Anion gap 14 2 - 15 mmol/L BUN 12 8 - 25 mg/dL Creatinine 0.92 0.40 - 1.00 mg/dL Glucose 92 70 - 199 mg/dL Calcium 9.6 8.5 - 10.3 mg/dL eGFR Collection Time: 07/07/22 6:48 AM Result Value Ref Range eGFR >90 90 - 130 mL/min/1.73 m2 I have reviewed the laboratory results. Imaging Results: MRI Brain W WO Contrast Narrative: EXAMINATION: Magnetic resonance imaging (MRI) of the brain and brainstem without and with contrast HISTORY: Persistent nausea and vomiting, blurry vision, TECHNIQUE: Multiplanar multi-weighted MRI of the brain and brainstem was performed without and with intravenous contrast using the general brain protocol. Contrast information: 8 mL Dotarem COMPARISON: CT head 07/04/2022 FINDINGS: The scalp and calvarium are normal. The superior sagittal sinus demonstrates normal venous flow. The corpus callosum is normal in shape and signal intensity. 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 The pituitary and sella are normal. The brainstem and craniocervical junction are unremarkable. Stepwise low-grade anterolisthesis of C2 on C3 and C3 on C4. Diffusion weighted images reveal no hyperintensities to suggest acute cerebral infarction. The susceptibility weighted sequences reveal no evidence of acute or chronic hemorrhage. The ventricles are normal in size and position without evidence of hydrocephalus . There are no areas of abnormal contrast enhancement. The paranasal sinuses are normal. The visualized portions of the mastoids are unremarkable. The orbits appear normal. Normal flow voids are demonstrated in the carotid arteries and basilar artery. 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 Otherwise, unremarkable MRI appearance of the brain without findings to suggest cause or consequence of patient's symptoms. Dictated by: Juvenal Salazar MD The radiology attending physician has personally reviewed this study, and had reviewed and/or edited this written report and agrees with it. Electronically signed by: Beatrice Silva M.D. EEG Extended EEG Report Patient Name: Isabel Churchill [facility] Medical Record Number (MRN): [id number] [facility]ly [facility] Record: No [place] MRN Date of (): 2005 EEG Date: 07/04/2022 Ordering Provider: Shanique Bazan MD CC: Rita Lynn Start Time: 07/04/2022 2:49:55 PM End Time: 07/04/2022 3:56:57 PM Introduction: Ms. Churchill is a 17 y.o. female without significant past medical history who presented with dystonic movements in setting of intractable nausea and vomiting after ceasing cannabis use, concerning for seizures. EEG was performed to evaluate for epileptiform activity. This is a 32 channel EEG recording acquired on a [employer] EEG-1200 acquisition system. Scalp electrodes were placed according to the international 10-20 System. The analog EEG was filtered from 1-70 Hz and digitally sampled at 200 Hz. The record was then reformatted for review in bipolar and referential montages. EEG Description: There was moderate EMG and movement artifact during the recording. The awake background included a 9 Hz posterior dominant rhythm which attenuated with eye opening and activity. During drowsiness, identified by ocular signs and alpha attenuation, there was intermittent, diffuse, asynchronous theta activity admixed with 2-4 Hz polymorphic frontotemporal delta activity. As the record progressed, stage II sleep was identified by vertex waves, sleep spindles and K-complexes. Hyperventilation was not performed. Photic strobe stimulation elicited prominent driving. No photoparoxysmal response was elicited. There were no focal, lateralized or epileptiform abnormalities. There was a single event recorded occurring at 15:47 PM. The patient reported she had blureed vision, more prominent in the right eye. There were no EEG changes with this event. Interpretation: This is a normal awake, stage I, and stage II sleep extended EEG. The recorded event did not have EEG correlate. By signing this report, the attending Electroencephalographer certifies that he/she personally reviewed the electrodiagnostics study and has edited this report to fully conform with his/her intent. Signing Attending: Miguel Mitchell MD I have independently reviewed and interpreted . Assessment/Plan Acute dystonic reaction due to drugs Assessment & Plan Likely due to heavy use of compazine [...] IV Benadryl prn dystonia - symptoms resolved High serum vitamin B12 Assessment & Plan Hold supplementation Severe malnutrition (CMS/HCC) ([facility]) Assessment & Plan Patient with chronically low BMI per chart review with current BMI 14 and reported 10 lb weight loss recently related to vomiting and poor po intake - RD consult - ADAT, Ensure TIDAC - Dobbhoff placement tomorrow and starting tube feeds. Vision changes Assessment & Plan - Patient reports intermittent blurry vision over both eyes over the past several days (not presentduring encounter) - Unclear etiology - possible orthostatic; given history concern for 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; limited concern for optic neuritis given bilateral involvement - CTM, consider head imaging and ophthalmology consult if recurrent/ongoing during admission Chest pain, unspecified type Assessment & Plan - Constant of L upper chest/shoulder region - worse with palpation and arm movement - hs-trop/EKG unremarkable; suspect MSK in etiology - Trial lidocaine patch, tylenol - PT/OT * Nausea & vomiting Assessment & Plan Patient presenting with subacute N/V with limited ability to maintain consistent PO intake over course. 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 Malnutrition-related gastroparesis possible though considered less likely; possible eating disorder component given chronicityof malnutrition. - Thus far evaluation with unremarkable CMP/CBC, lipase 55, hs-trop <4 x 2, urinary hCG negative, UA clear, RVP negative, HIV neg, CXR clear, CT-AP without acute process, Utox + cannabinoids but otherwise negative. GI was consulted, EGD was done on 07/07 was unremarkable. Biopsies were taken from esophagus and stomach results are pending. Discussed with patient and mother tube feeding and theywere agreeable. - Cu level ordered - Zofran pediatric dosed - Trial IV ativan prn, scopolamine patch - Trial PPI - Avoid cannabis - IR to place Dobbhoff - follow-up pathology results from stomach and esophagus. Grover Spaulding MD NG PARTS SEWER * Amparo Carmen, PT - 07/05/2022 3:36 PM CST Physical Therapy Cancel 07/05/22 4706 General PT Missed Visit Reason Patient declined (pt declined, not giving a real reason as to why; denies nausea; states she is walking around her room with her grandmother) NG PARTS SEWER * Rosmery Esqueda SHUTTLE DRIVER - 07/05/2022 11:25 AM CST CM Initial Assessment Interview Note Information Obtained From: Patient (interviewed at bedside, private room, no famly present during assessment) (07/05/22 1125) Admission Source: non health care point of origin Impression: Patient admitted for nausea and vomiting. Plan Includes: Discharge to apartment where she lives alone when medically stable. Primary Source of Transportation: Does the patient need discharge transport arranged?: No (Transport per family at discharge) (07/05/22 1125) Health Insurance Coverage: Managed medicaid-[employer] Prescription Coverage: yes [facility] Primary Care Provider: verified with patient Rita Lynn MD Prior to Admission: Primary Caregiver: Self Who does the patient or legal guardian want to receive education instruction and discharge plans for after care assistance?: Name Caregiver Name: Tony Churchill Relationship to patient: mother Support System: Family members Support system contact info (name, phone, availablity): Zee Keys (grandmother) [phone] Home Care Services: No Durable Medical Equipment: None Living Arrangements: Alone Type of Residence: Apartment Steps in home? : No steps inside or outside (07/03/22 1900) SPotential discharge needs include: No needs anticipated at time of assessment. Case management will continue to follow this patient through admission and address needs as they arise. Dialysis: no Behavioral Health Services: Behavioral Health Services: No (07/05/221124) Patient expects to be Discharged to: Private residence, (07/05/221124) Additional Information: The patient's name, date of , address and phone number were verified with the patient. The role of case management was explained to the patient. The patient states she does not have durable medical equipment in the home. She states that they do not use home oxygen. They do not use a CPAP or BIPAP. She states that prior to admission she was independent of ADLs and would like to return to that same level of function. Patient's Identified Problem/Goal Problem: Ensure acute medical needs are met and that patient has a safe discharge plan. Goal: Secure a discharge plan that patient/family are agreeable with and ensure patient has continuum of care. Case management will follow for discharge planning and send referrals as needed. Goals include: To assure continuity of care, To maximize coping skills, To assure patient is in a safe environment and To assure access to community resources. Plan includes: 1. Collaboration with patient, MD, direct care nurse, Hat Checker, and other members of the health care team to assure needed interventions completed. 2. Return patient to optimal level of self-care post discharge. 3. Treasury Agent will follow for Discharge Planning - interventions as needed 4. Anticipated level of care at discharge 5. Planned Discharge Disposition Based on a comprehensive family assessment, assistance with instrumental activities of daily livingafter discharge will be provided by patient. Through the course of our work I determined that the patient possesses the skill and ability to provide and monitor the care of the patient when he or she returns home. The patient has the capacity to provide/monitor/arrange for the care of the patient. Finally, we determined that the patient has the knowledge of available resources and that combining them with their existing resources will suffice to sustain and care for the patient when she returns home. The treatment team is aware of this information. All are in agreement with the aftercare plan. Rosmery Esqueda Float Treasury Agent [phone] For emergency needs after 4:30 pm, please call the magnetometer operator [phone]. For weekend/holiday needs from 8:00a.m. - 4:30p.m., please call the Weekend Treasury Agent . NG PARTS SEWER * Shanique Bazan MD - 07/05/2022 10:25 AM CST Daily Progress Note Division of Hospital Medicine Name: Isabel Churchill Today: July 05, 2022 : 2005 Age: 17 y.o. female Admit: 07/03/2022 Bed: [id number] Subjective Chief complaint: nausea Interval History: persistent nausea and retching since yesterday. Not relieved by Zofran. Now off compazine given likely acute dystonic reaction. No further muscle spasms today - responded well to IVBenadryl yesterday. Updated mom on phone at bedside this AM. Patient uncomfortable and still vomiting. She feels heavy in her chest with emesis but no marly abdominal pain. Objective Medications: Scheduled: enoxaparin, 30 mg, subcutaneous, Daily-2100 ergocalciferol, 50,000 Units, oral, Weekly folic acid, 1 mg, oral, Daily lidocaine, 1 patch, transdermal, Daily multivitamin therapeutic, 1 tablet, oral, Daily pantoprazole, 40 mg, intravenous, Daily scopolamine, 1 patch, transdermal, Q72H [Held by Provider] thiamine, 100 mg, oral, Daily Infusions: dextrose 5% and Lactated Ringer's, 75 mL/hr, Last Rate: 75 mL/hr (07/05/22 0446) PRN: ??? acetaminophen ??? baclofen ??? calcium carbonate ??? diphenhydrAMINE ??? LORazepam ??? ondansetron ??? ramelteon Vitals: 24hr Min/Max: Temp Min: 36.4 ??C (97.5 ??F) Max: 37.1 ??C (98.8 ??F) Pulse Min: 65 Max: 131 BP Min: 101/64 Max: 131/96 Resp Min: 16 Max: 18 SpO2 Min: 99 % Max: 100 % Most Recent: Vitals: 07/05/22 0918 BP: 127/95 Pulse: 95 Resp: 18 Temp: 37.1 ??C (98.8 ??F) SpO2: 100% No intake or output data in the 24 hours ending 07/05/22 1013 Physical Exam GENERAL: appears uncomfortable, lying lateral decubitus in bed, actively retching and spitting intotrash can. thin HEENT: normocephalic, atraumatic, EOMI, PERRL, MMM PULM: breathing comfortably on room air ABD: soft, nondistended EXTR: WWP, no edema NEURO: alert, oriented to person, place, time and situation PSYCH: behavior and affect appropriate, cooperative with care Lab/Diagnostic Review: Recent Results (from the past 36 hour(s)) HIV 1/2 Antibody plus p24 Antigen Blood Collection Time: 07/04/22 5:41 AM Specimen: Blood Result Value Ref Range HIV 1/2 ab + p24 ag Nonreactive Nonreactive Basic metabolic panel Collection Time: 07/04/22 5:41 AM Result Value Ref Range Sodium 140 135 - 145 mmol/L Potassium, pl 3.5 3.3 - 4.9 mmol/L Chloride 104 97 - 110 mmol/L CO2 28 22 - 32 mmol/L Anion gap 8 2 - 15 mmol/L BUN 4 (L) 8 - 25 mg/dL Creatinine 0.72 0.40 - 1.00 mg/dL Glucose 101 70 - 199 mg/dL Calcium 9.3 8.5 - 10.3 mg/dL Phosphorus Collection Time: 07/04/22 5:41 AM Result Value Ref Range Phosphorus, pl 3.9 2.3 - 4.5 mg/dL Erythrocyte sedimentation rate Collection Time: 07/04/22 5:41 AM Result Value Ref Range Erythrocyte sedimentation rate 9 1 - 20 mm/hr Gliadin antibody, IgA Collection Time: 07/04/22 5:41 AM Result Value Ref Range Anti-gliadin, IgA 0.5 <=14.9 units/mL Magnesium Collection Time: 07/04/22 5:41 AM Result Value Ref Range Magnesium 1.9 1.4 - 2.5 mg/dL Tissue transglutaminase IgA (TGG-IgA Ab) Collection Time: 07/04/22 5:41 AM Result Value Ref Range TTG ab, IgA <0.5 <=14.9 units/mL eGFR Collection Time: 07/04/22 5:41 AM Result Value Ref Range eGFR >90 90 - 130 mL/min/1.73 m2 I have reviewed the laboratory results. Imaging Results: CT Head WO Contrast Narrative: EXAMINATION: CT head without contrast HISTORY: Muscle spasm. TECHNIQUE: Noncontrast CT of the brain was performed with images acquired from skull base to vertex. COMPARISON: None available. FINDINGS: Topogram demonstrates no lytic lesions or fractures. There is no acute intracranial hemorrhage. Ventricles are of normal size and morphology. No mass effect or midline shift is present. The lema-white matter differentiation is normal. The visualized portions of the orbits are normal. The visualized portions of the mastoids are normal. The visualized portions of the paranasal sinuses are normal. No fractures are identified. Calcifications of the falx are noted. Impression: No intracranial hemorrhage, mass effect or midline shift. Dictated by: Lamin Vargas M.D. The radiology attending physician has personally reviewed this study, and had reviewed and/or edited this written report and agrees with it. Electronically signed by: Olga Akers M.D. Assessment/Plan * Nausea & vomiting Assessment & Plan Patient presenting with subacute N/V with limited ability to maintain consistent PO intake over course. 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 Malnutrition-related gastroparesis possible though considered less likely; possible eating disorder component given chronicityof malnutrition. - Thus far evaluation with unremarkable CMP/CBC, lipase 55, hs-trop <4 x 2, urinary hCG negative, UA clear, RVP negative, HIV neg, CXR clear, CT-AP without acute process, Utox + cannabinoids but otherwise negative - Cu level ordered - Zofran pediatric dosed - Trial IV ativan prn, scopolamine patch - Trial PPI - Avoid cannabis - Consult GI Acute dystonic reaction due to drugs Assessment & Plan Likely due to heavy use of compazine at home, plus got one dose of droperidol here and additional compazine. CT head unremarkable. EEG unremarkable. - avoid all dopaminergic medications - added compazine to allergy list w/ reaction of dystonia - neurology following - MRI brain ordered due to concerns of blurred vision - IV Benadryl prn dystonia - symptoms improved today High serum vitamin B12 Assessment & Plan Hold supplementation Vitamin D deficiency Assessment & Plan 25 vit D on admission - started 50,000 units ergocalciferol qweek, plan x8w and repeat level Severe malnutrition (CMS/HCC) ([facility]) Assessment & Plan Patient with chronically low BMI per chart review with current BMI 14 and reported 10 lb weight loss recently related to vomiting and poor po intake - RD consult - ADAT, Ensure TIDAC - Calorie Count Chest pain, unspecified type Assessment & Plan - Constant of L upper chest/shoulder region - worse with palpation and arm movement - hs-trop/EKG unremarkable; suspect MSK in etiology - Trial lidocaine patch, tylenol - PT/OT NG PARTS SEWER * Shanique Bazan MD - 07/04/2022 11:53 AM CST Daily Progress Note Division of Hospital Medicine Name: Isabel Churchill Today: July 04, 2022 : 2005 Age: 17 y.o. female Admit: 07/03/2022 Bed: [id number] Subjective Chief complaint: vomiting, muscle twitching/spasm Interval History: No acute events overnight. Grandmother in room and mother on speakerphone during our interacton and assisted in answering questions. Patient still noting muscle spasms but they haveimproved a little since admission. She notes that she was having vomiting before but no diarrhea and in fact she really didn't have a bowel movement in past week prior to admission and rarely urinated . Her friend and her had both smoked weed together before this happened and friend reported abdominal pain afterwards so patient and family are concerned that the marijuana was contaminated leading to symptoms. She has lost about 10 pounds since illness began. Recently had her period and it was normal. No travel recently. She had been in usual state of health until this began very recently. No significant family history of major medical disease including no degenerative neurologic disease. Objective Medications: Scheduled: enoxaparin, 30 mg, subcutaneous, Daily-2100 ergocalciferol, 50,000 Units, oral, Weekly folic acid, 1 mg, oral, Daily lidocaine, 1 patch, transdermal, Daily multivitamin therapeutic, 1 tablet, oral, Daily pantoprazole, 40 mg, intravenous, Daily thiamine, 100 mg, oral, Daily Infusions: dextrose 5% and Lactated Ringer's, 75 mL/hr, Last Rate: 75 mL/hr (07/04/22 0217) PRN: ??? acetaminophen ??? baclofen ??? prochlorperazine OR prochlorperazine ??? ramelteon Vitals: 24hr Min/Max: Temp Min: 36.5 ??C (97.7 ??F) Max: 36.8 ??C (98.2 ??F) Pulse Min: 66 Max: 170 BP Min: 93/48 Max: 145/90 Resp Min: 16 Max: 25 SpO2 Min: 97 % Max: 100 % Most Recent: Vitals: 07/04/22 0952 BP: 107/75 Pulse: 104 Resp: 16 Temp: 36.5 ??C (97.7 ??F) SpO2: 100% Intake/Output Summary (Last 24 hours) at 07/04/2022 1127 Last data filed at 07/04/2022 0950 Gross per 24 hour Intake 1710 ml Output -- Net 1710 ml Physical Exam GENERAL: no acute distress, sitting up in bed, thin HEENT: normocephalic, atraumatic, EOMI, PERRL, MMM. Tongue appears normal without any lesions or discoloration CV: RRR, no MRG PULM: CTAB, breathing comfortably on room air ABD: soft, non-distended, non-tender to palpation : no suprapubic tenderness to palpation EXTR: wwp, no LE edema NEURO: alert, oriented to person, place, situation and time, following commands, decreased muscle bulk with normal tone, no muscle fasciculations noted SKIN: mild discoloration on dorsi of feet PSYCH: behavior and affect appropriate, cooperative with care Lab/Diagnostic Review: Recent Results (from the past 36 hour(s)) Calcium, ionized Collection Time: 07/03/22 9:42 AM Result Value Ref Range Calcium, Ionized 4.74 4.50 - 5.10 mg/dL CBC with auto differential Collection Time: 07/03/22 10:15 AM Result Value Ref Range WBC 3.4 (L) 3.8 - 9.9 K/cumm Hgb 12.4 11.9 - 15.5 g/dL Hct 37.3 35.6 - 45.5 % Plt 217 150 - 400 K/cumm MPV 10.6 9.1 - 12.3 fL RBC 4.53 3.90 - 5.20 M/cumm MCV 82.3 81.3 - 96.4 fL MCH 27.4 27.1 - 33.3 pg MCHC 33.2 32.3 - 35.7 g/dL RDW CV 13.3 11.1 - 14.9 % RDW SD 40.1 35.7 - 48.1 fL NRBC abs 0.00 0.00 - 0.01 K/cumm Comprehensive metabolic panel Collection Time: 07/03/22 10:15 AM Result Value Ref Range Sodium 141 135 - 145 mmol/L Potassium, pl 4.0 3.3 - 4.9 mmol/L Chloride 103 97 - 110 mmol/L CO2 27 22 - 32 mmol/L Anion gap 11 2 - 15 mmol/L BUN 3 (L) 8 - 25 mg/dL Creatinine 0.74 0.40 - 1.00 mg/dL Glucose 106 70 - 199 mg/dL Calcium 9.5 8.5 - 10.3 mg/dL Bilirubin, total 0.8 0.1 - 1.2 mg/dL Protein, pl 7.3 6.5 - 8.5 g/dL Albumin 4.5 3.5 - 5.0 g/dL Alk phos 48 (L) 70 - 260 Units/L ALT 14 7 - 45 Units/L AST 23 10 - 45 Units/L Lipase Collection Time: 07/03/22 10:15 AM Result Value Ref Range Lipase 55 10 - 99 Units/L Respiratory pathogen panel Nasopharyngeal Collection Time: 07/03/22 10:15 AM Specimen: Nasopharyngeal Result Value Ref Range Influenza [...] M. pneumoniae DNA Not Detected Not Detected Magnesium Collection Time: 07/03/22 10:15 AM Result Value Ref Range Magnesium 1.9 1.4 - 2.5 mg/dL Phosphorus Collection Time: 07/03/22 10:15 AM Result Value Ref Range Phosphorus, pl 3.1 2.3 - 4.5 mg/dL Troponin I high-sensitivity series (baseline, 2hr, 4hr, 6hr) Collection Time: 07/03/22 10:15 AM Result Value Ref Range Trop I hs <4 <=17 ng/L Differential, auto Collection Time: 07/03/22 10:15 AM Result Value Ref Range Neutrophil abs 1.9 1.7 - 6.5 K/cumm Imm gran abs 0.0 0.0 - 0.1 K/cumm Lymphocyte abs 1.2 0.8 - 3.3 K/cumm Monocyte abs 0.3 0.2 - 0.8 K/cumm Eosinophil abs 0.1 0.0 - 0.5 K/cumm Basophil abs 0.0 0.0 - 0.1 K/cumm Neutrophil pct 55.8 % Imm gran pct 0.3 % Lymphocyte pct 34.4 % Monocyte pct 7.4 % Eosinophil pct 1.5 % Basophil pct 0.6 % eGFR Collection Time: 07/03/22 10:15 AM Result Value Ref Range eGFR >90 90 - 130 mL/min/1.73 m2 Vitamin B12 Collection Time: 07/03/22 10:15 AM Result Value Ref Range Vitamin B12 1,748 (H) 230 - 1,250 pg/mL Iron profile w/ IBC Collection Time: 07/03/22 10:15 AM Result Value Ref Range Iron 76 35 - 145 mcg/dL TIBC 254 250 - 400 mcg/dL Transferrin saturation 30 20 - 50 % Ferritin Collection Time: 07/03/22 10:15 AM Result Value Ref Range Ferritin 170 (H) 13 - 150 ng/mL TSH reflex to free T4 Collection Time: 07/03/22 10:15 AM Result Value Ref Range TSH 0.90 0.30 - 4.20 mcIUnit/mL CRP (acute phase) Collection Time: 07/03/22 10:15 AM Result Value Ref Range CRP <0.5 <=10.0 mg/L IgA Collection Time: 07/03/22 10:15 AM Result Value Ref Range Immunoglobulin A 118.0 70.0 - 400.0 mg/dL Vitamin D 25 hydroxy Collection Time: 07/03/22 10:15 AM Result Value Ref Range Vitamin D 25-OH 17 (L) 30 - 80 ng/mL Urinalysis reflex to microscopic and culture Urine Collection Time: 07/03/22 10:16 AM Specimen: Urine Result Value Ref Range Color, ur Straw Yellow Clarity, ur Clear Clear Specific gravity, ur 1.014 1.003 - 1.030 pH, urine 7.5 Protein, ur ql Negative Negative Glucose, ur ql Negative Negative Ketones, ur Negative Negative Bilirubin, ur Negative Negative Blood, ur Negative Negative Urobilinogen, ur <2.0 <2.0 mg/dL Nitrite, ur Negative Negative Leukocyte esterase, ur Negative Negative UA reflex comment Reflex conditions for microscopic UA and culture not met. POCT creatinine Collection Time: 07/03/22 10:23 AM Result Value Ref Range Creatinine POC 0.7 0.4 - 1.0 mg/dL hCG, urine, qualitative Collection Time: 07/03/22 10:30 AM Result Value Ref Range HCG, ur Negative Negative Troponin I high-sensitivity 2-hour Collection Time: 07/03/22 12:03 PM Result Value Ref Range Trop I hs <4 <=17 ng/L Trop I hs delta 0 ng/L Trop I hs interp Insignificant HIV 1/2 Antibody plus p24 Antigen Blood Collection Time: 07/04/22 5:41 AM Specimen: Blood Result Value Ref Range HIV 1/2 ab + p24 ag Nonreactive Nonreactive Basic metabolic panel Collection Time: 07/04/22 5:41 AM Result Value Ref Range Sodium 140 135 - 145 mmol/L Potassium, pl 3.5 3.3 - 4.9 mmol/L Chloride 104 97 - 110 mmol/L CO2 28 22 - 32 mmol/L Anion gap 8 2 - 15 mmol/L BUN 4 (L) 8 - 25 mg/dL Creatinine 0.72 0.40 - 1.00 mg/dL Glucose 101 70 - 199 mg/dL Calcium 9.3 8.5 - 10.3 mg/dL Phosphorus Collection Time: 07/04/22 5:41 AM Result Value Ref Range Phosphorus, pl 3.9 2.3 - 4.5 mg/dL Erythrocyte sedimentation rate Collection Time: 07/04/22 5:41 AM Result Value Ref Range Erythrocyte sedimentation rate 9 1 - 20 mm/hr Gliadin antibody, IgA Collection Time: 07/04/22 5:41 AM Result Value Ref Range Anti-gliadin, IgA 0.5 <=14.9 units/mL Magnesium Collection Time: 07/04/22 5:41 AM Result Value Ref Range Magnesium 1.9 1.4 - 2.5 mg/dL Tissue transglutaminase IgA (TGG-IgA Ab) Collection Time: 07/04/22 5:41 AM Result Value Ref Range TTG ab, IgA <0.5 <=14.9 units/mL eGFR Collection Time: 07/04/22 5:41 AM Result Value Ref Range eGFR >90 90 - 130 mL/min/1.73 m2 I have reviewed the laboratory results. Imaging Results: XR Chest Pa Lateral 2 Views Narrative: EXAMINATION: XR CHEST PA LATERAL 2 VIEWS Impression: There are no relevant prior studies available for comparison. The lungs are clear without pneumonic consolidation or pulmonary edema. There is no pleural effusion. There is no pneumothorax. The cardiomediastinal silhouette is within normal limits. Dictated by: Arlette Rosales MD The radiology attending physician has personally reviewed this study, and had reviewed and/or edited this written report and agrees with it. Electronically signed by: Shanique Maxwell MD CT Abdomen Pelvis W Contrast Narrative: EXAMINATION: Computed tomography of the abdomen and pelvis with intravenous contrast HISTORY: Abdominal pain TECHNIQUE: Transaxial computed tomographic images of the abdomen and pelvis were obtained with intravenous contrast according to the standard protocol after the uneventful administration of 90 mL Opti-Ray 350 intravenous contrast. COMPARISON: None FINDINGS: The lung bases are clear. Imaged heart is normal in size without pericardial effusion. The liver is normal in size without hepatic lesion or biliary ductal dilation. The gallbladder, adrenal glands, spleen, and pancreas are normal. The kidneys enhance symmetrically without hydronephrosis. The urinary bladder is normal. The uterus is present. No suspicious adnexal lesion. The bowel is normal course and caliber without evidence of obstruction. Abdominal aorta is normal in caliber. No suspicious abdominal or pelvic lymphadenopathy. No free fluid within the abdomen or pelvis. No pneumoperitoneum. No suspicious osseous lesions. Impression: No CT correlate for acute abdominal pain. Dictated by: Tanja Wood MD The radiology attending physician has personally reviewed this study, and had reviewed and/or edited this written report and agrees with it. Electronically signed by: Clemente Foster M.D. ECG 12 lead Ish Espinal MD 07/03/2022 8:25 AM ECG 12 lead Date/Time: 07/03/2022 8:25 AM Performed by: Ish Espinal MD Authorized by: Yayo Patterson MD Rate: ECG rate: 97 ECG rate assessment: normal Rhythm: Rhythm: sinus rhythm Ectopy: Ectopy: none QRS: QRS axis: Normal QRS intervals: Normal Conduction: Conduction: normal ST segments: ST segments: Normal T waves: T waves: normal Previous ECG: Previous ECG: Unavailable Interpretation: Interpretation: No acute injury pattern Recommended Follow-up: Recommended follow up: further workup in the ED Assessment/Plan * Nausea & vomiting Assessment & Plan Patient presenting with subacute N/V with limited ability to maintain consistent PO intake over course. 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 Ca, Mg, K wnl. limited concern for lesion as etiology given bilateral - Trial baclofen - checking Cu level Severe malnutrition (CMS/HCC) (HCC) Assessment & Plan Patient with chronically low BMI per chart review with current BMI 14 and reported 10 lb weight loss recently related to vomiting and poor po intake - RD consult - ADAT, Ensure TIDAC - Calorie Count Vision changes Assessment & Plan - Patient reports intermittent blurry vision over both eyes over the past several days (not presentduring encounter) - Unclear etiology - possible orthostatic; given history concern for 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; limited concern for optic neuritis given bilateral involvement - CTM, consider head imaging and ophthalmology consult if recurrent/ongoing during admission Chest pain, unspecified type Assessment & Plan - Constant of L upper chest/shoulder region - worse with palpation and arm movement - hs-trop/EKG unremarkable; suspect MSK in etiology - Trial lidocaine patch, tylenol - PT/OT NG PARTS SEWER documented in this encounter H&P Notes * Asad Marquis MD - 07/03/2022 8:50 PM CST History and Physical Division of [facility] Medicine Name: Isabel Churchill Today: July 03, 2022 : 2005 Age: 17 y.o. female Subjective Ms. Churchill is a 17 y.o. female with chief complaint of abdominal pain. HPI: Isabel Churchill is an 17yF with no remarkable PMH presenting with multiple complaints. Patient reports over the past 3wks she has had onset of daily nausea/vomiting (NBNB) with associated non-radiating epigastric pain that is worse with emesis and movement. She is unsure of any changeswith PO intake. She states there is no consistent timeframe where she vomits following PO intake. She last tolerated a meal yesterday. She states fluid PO intake has been reasonable. He last BM was 3days ago, which is atypical for her. She additionally reports left upper chest pain that is relatively constant and worsens with palpation and large breaths - she states paresthesias over the given area. She endorses generalized weakness and 10lb wt loss over this time course. Over the last few daysshe has noted blurry vision intermittently that self-resolves. She additionally endorses onset of facial spasms that started today over bilateral V3 regions, lasting 1-2min. She states up until 3wks ago she was smoking marijuana daily. She endorses a normal appetite at baseline. Per chart review her wt was 102lbs in 02/2021 where she presented with similar symptoms and unremarkable workup (she, however, endorses different severity of symptoms at this time). She denies fever, cough, hematochezia, urinary symptoms. She originally presented to [facility], though left AMA on 07/01 due to perceived poor care - subsequently presenting to [facility] on the same day with unremarkable labs/workup. Of note it was reported she had a fall in the restroom without LOC/head trauma with wrist films negative. In the ED she presented HD stable. Evaluation with unremarkable CMP/CBC, lipase 55, hs-trop <4 x2, urinary hCG negative, UA clear, RVP negative, CXR clear, CT- AP without acute process. She was administered 1L LR, zofran and droperidol and admitted for further evaluation. I have reviewed and summarized prior records in [facility], [facility], and [facility] Everywhere. History reviewed. No pertinent past medical history. History reviewed. No pertinent surgical history. No current facility-administered medications on file prior to encounter. No current outpatient medications on file prior to encounter. No Known Allergies Social History Tobacco Use Smoking status: Some Days Types: Vaping Smokeless tobacco: None Substance and Sexual Activity Drug use: Yes Types: Marijuana Sexual activity: None Alcohol Use: Not on file Family History Problem Relation Age of Onset Ovarian cancer Mother Review of Systems All other systems were reviewed and are negative except for All other systems were reviewed and arenegative except for that which is listed in the History of Present Illness.. Objective Vitals: 24hr Min/Max: Temp Min: 36.5 ??C (97.7 ??F) Max: 36.8 ??C (98.2 ??F) Pulse Min: 66 Max: 170 BP Min: 113/81 Max: 145/90 Resp Min: 18 Max: 25 SpO2 Min: 97 % Max: 100 % Most Recent Vitals: Vitals: 07/03/222137 BP: Pulse: 78 Resp: Temp: SpO2: Intake/Output Summary (Last 24 hours) at 07/03/20222206 Last data filed at 07/03/2022 1643 Gross per 24 hour Intake 1000 ml Output -- Net 1000 ml Physical Exam General: drowsy, calm, no acute distress HEET: Normocephalic, PERRL, EOMi, sclerae anicteric, No rhinorrhea, MMM with no oral lesions Neck: Supple, thyroid non-enlarged Cardiovascular: Regular rate and rhythm with no murmur, rub, or gallop Pulm: Clear to ausculation bilaterally Abdomen: Mild TTP over epigastric region; Non-distended, Bowel Sounds (+), No hepatosplenomegaly, No rebound Back: No tenderness along spinous processes Extremities: Warm, dry with no cyanosis or edema - sarcopenia present Skin: No observable rashes on exam Lymph Nodes: No Cervical Lymphadenopathy Neuro: A&Ox3, CN II-XII intact, 5/5 strength and sensation intact in all extremities Psych: Flat mood and affect Lab/Diagnostic Review: Recent Results (from the past 36 hour(s)) Calcium, ionized Collection Time: 07/03/22 9:42 AM Result Value Ref Range Calcium, Ionized 4.74 4.50 - 5.10 mg/dL CBC with auto differential Collection Time: 07/03/22 10:15 AM Result Value Ref Range WBC 3.4 (L) 3.8 - 9.9 K/cumm Hgb 12.4 11.9 - 15.5 g/dL Hct 37.3 35.6 - 45.5 % Plt 217 150 - 400 K/cumm MPV 10.6 9.1 - 12.3 fL RBC 4.53 3.90 - 5.20 M/cumm MCV 82.3 81.3 - 96.4 fL MCH 27.4 27.1 - 33.3 pg MCHC 33.2 32.3 - 35.7 g/dL RDW CV 13.3 11.1 - 14.9 % RDW SD 40.1 35.7 - 48.1 fL NRBC abs 0.00 0.00 - 0.01 K/cumm Comprehensive metabolic panel Collection Time: 07/03/22 10:15 AM Result Value Ref Range Sodium 141 135 - 145 mmol/L Potassium, pl 4.0 3.3 - 4.9 mmol/L Chloride 103 97 - 110 mmol/L CO2 27 22 - 32 mmol/L Anion gap 11 2 - 15 mmol/L BUN 3 (L) 8 - 25 mg/dL Creatinine 0.74 0.40 - 1.00 mg/dL Glucose 106 70 - 199 mg/dL Calcium 9.5 8.5 - 10.3 mg/dL Bilirubin, total 0.8 0.1 - 1.2 mg/dL Protein, pl 7.3 6.5 - 8.5 g/dL Albumin 4.5 3.5 - 5.0 g/dL Alk phos 48 (L) 70 - 260 Units/L ALT 14 7 - 45 Units/L AST 23 10 - 45 Units/L Lipase Collection Time: 07/03/22 10:15 AM Result Value Ref Range Lipase 55 10 - 99 Units/L Respiratory pathogen panel Nasopharyngeal Collection Time: 07/03/22 10:15 AM Specimen: Nasopharyngeal Result Value Ref Range Influenza [...] M. pneumoniae DNA Not Detected Not Detected Magnesium Collection Time: 07/03/22 10:15 AM Result Value Ref Range Magnesium 1.9 1.4 - 2.5 mg/dL Phosphorus Collection Time: 07/03/22 10:15 AM Result Value Ref Range Phosphorus, pl 3.1 2.3 - 4.5 mg/dL Troponin I high-sensitivity series (baseline, 2hr, 4hr, 6hr) Collection Time: 07/03/22 10:15 AM Result Value Ref Range Trop I hs <4 <=17 ng/L Differential, auto Collection Time: 07/03/22 10:15 AM Result Value Ref Range Neutrophil abs 1.9 1.7 - 6.5 K/cumm Imm gran abs 0.0 0.0 - 0.1 K/cumm Lymphocyte abs 1.2 0.8 - 3.3 K/cumm Monocyte abs 0.3 0.2 - 0.8 K/cumm Eosinophil abs 0.1 0.0 - 0.5 K/cumm Basophil abs 0.0 0.0 - 0.1 K/cumm Neutrophil pct 55.8 % Imm gran pct 0.3 % Lymphocyte pct 34.4 % Monocyte pct 7.4 % Eosinophil pct 1.5 % Basophil pct 0.6 % eGFR Collection Time: 07/03/22 10:15 AM Result Value Ref Range eGFR >90 90 - 130 mL/min/1.73 m2 Vitamin B12 Collection Time: 07/03/22 10:15 AM Result Value Ref Range Vitamin B12 1,748 (H) 230 - 1,250 pg/mL Ferritin Collection Time: 07/03/22 10:15 AM Result Value Ref Range Ferritin 170 (H) 13 - 150 ng/mL TSH reflex to free T4 Collection Time: 07/03/22 10:15 AM Result Value Ref Range TSH 0.90 0.30 - 4.20 mcIUnit/mL Vitamin D 25 hydroxy Collection Time: 07/03/22 10:15 AM Result Value Ref Range Vitamin D 25-OH 17 (L) 30 - 80 ng/mL Urinalysis reflex to microscopic and culture Urine Collection Time: 07/03/22 10:16 AM Specimen: Urine Result Value Ref Range Color, ur Straw Yellow Clarity, ur Clear Clear Specific gravity, ur 1.014 1.003 - 1.030 pH, urine 7.5 Protein, ur ql Negative Negative Glucose, ur ql Negative Negative Ketones, ur Negative Negative Bilirubin, ur Negative Negative Blood, ur Negative Negative Urobilinogen, ur <2.0 <2.0 mg/dL Nitrite, ur Negative Negative Leukocyte esterase, ur Negative Negative UA reflex comment Reflex conditions for microscopic UA and culture not met. POCT creatinine Collection Time: 07/03/22 10:23 AM Result Value Ref Range Creatinine POC 0.7 0.4 - 1.0 mg/dL hCG, urine, qualitative Collection Time: 07/03/22 10:30 AM Result Value Ref Range HCG, ur Negative Negative Troponin I high-sensitivity 2-hour Collection Time: 07/03/22 12:03 PM Result Value Ref Range Trop I hs <4 <=17 ng/L Trop I hs delta 0 ng/L Trop I hs interp Insignificant I have reviewed the laboratory results. Imaging Results: XR Chest Pa Lateral 2 Views Narrative: EXAMINATION: XR CHEST PA LATERAL 2 VIEWS Impression: There are no relevant prior studies available for comparison. The lungs are clear without pneumonic consolidation or pulmonary edema. There is no pleural effusion. There is no pneumothorax. The cardiomediastinal silhouette is within normal limits. Dictated by: Arlette Rosales MD The radiology attending physician has personally reviewed this study, and had reviewed and/or edited this written report and agrees with it. Electronically signed by: Shanique Maxwell MD CT Abdomen Pelvis W Contrast Narrative: EXAMINATION: Computed tomography of the abdomen and pelvis with intravenous contrast HISTORY: Abdominal pain TECHNIQUE: Transaxial computed tomographic images of the abdomen and pelvis were obtained with intravenous contrast according to the standard protocol after the uneventful administration of 90 mL Opti-Ray 350 intravenous contrast. COMPARISON: None FINDINGS: The lung bases are clear. Imaged heart is normal in size without pericardial effusion. The liver is normal in size without hepatic lesion or biliary ductal dilation. The gallbladder, adrenal glands, spleen, and pancreas are normal. The kidneys enhance symmetrically without hydronephrosis. The urinary bladder is normal. The uterus is present. No suspicious adnexal lesion. The bowel is normal course and caliber without evidence of obstruction. Abdominal aorta is normal in caliber. No suspicious abdominal or pelvic lymphadenopathy. No free fluid within the abdomen or pelvis. No pneumoperitoneum. No suspicious osseous lesions. Impression: No CT correlate for acute abdominal pain. Dictated by: Tanja Wood MD The radiology attending physician has personally reviewed this study, and had reviewed and/or edited this written report and agrees with it. Electronically signed by: Clemente Foster M.D. ECG 12 lead Ish Espinal MD 07/03/2022 8:25 AM ECG 12 lead Date/Time: 07/03/2022 8:25 AM Performed by: Ish Espinal MD Authorized by: Yayo Patterson MD Rate: ECG rate: 97 ECG rate assessment: normal Rhythm: Rhythm: sinus rhythm Ectopy: Ectopy: none QRS: QRS axis: Normal QRS intervals: Normal Conduction: Conduction: normal ST segments: ST segments: Normal T waves: T waves: normal Previous ECG: Previous ECG: Unavailable Interpretation: Interpretation: No acute injury pattern Recommended Follow-up: Recommended follow up: further workup in the ED I have independently reviewed and interpreted CXR: no evidence of focal consolidation, effusion, edema, or PTX. EKG - I have independently reviewed and interpreted the EKG. Findings include: EKG findings: normalEKG, normal sinus rhythm. Assessment & Plan Nausea & vomiting Assessment & Plan - Patient presenting with subacute N/V with limited ability to maintain consistent PO intake over course - Evaluation with unremarkable CMP/CBC, lipase 55, hs-trop <4 x 2, urinary hCG negative, UA clear, RVP negative, CXR clear, CT-AP without acute process. 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 Malnutrition-related gastroparesis possible though considered less likely; possible eating disorder component given chronicity of malnutrition. - D5-LR ordered, trial compazine, ADAT - monitor for refeeding - check HIV with AM labs - Trial PPI Severe malnutrition (CMS/HCC) (HCC) Assessment & Plan - Patient with chronically low BMI per chart review with current BMI 14 - Patient reports normal PO intake prior to start of symptoms 3wks ago - Unclear if related to malabsorptive issue vs eating disorder - RD consult - ADAT, Ensure TIDAC - Calorie Count Abdominal pain Assessment & Plan - Patient presenting with epigastric pain in setting of ongoing N/V - Evaluation per above - no clear acute process ongoing. Discussed with radiology and feel component of SMA syndrome not suggested by imaging - Given ongoing malnutrition - celiac screen, ESR/CRP, lead level, and porphobilinogen tests ordered - Tylenol PRN - ADAT - Non-urgent GI consult if ongoing symptomatology with unremarkable workup - CTM Facial spasm Assessment & Plan - Patient with onset of bilateral facial spasm over V3 regions, lasting ~1-2min - Does not frankly seem related to electrolyte changes given normal values on presentation - limited concern for lesion as etiology given bilateral in nature. - Trial baclofen Vision changes Assessment & Plan - Patient reports intermittent blurry vision over both eyes over the past several days (not presentduring encounter) - Unclear etiology - possible orthostatic; given history concern for 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; limited concern for optic neuritis given bilateral involvement - CTM, consider head imaging and ophthalmology consult if recurrent/ongoing during admission * Chest pain, unspecified type Assessment & Plan - Constant of L upper chest/shoulder region - worse with palpation and arm movement - hs-trop/EKG unremarkable; suspect MSK in etiology - Trial lidocaine patch, tylenol - PT/OT Asad Marquis MD Hospitalist NG PARTS SEWER documented in this encounter Procedure Notes * Brittnee Babb MD - 07/07/2022 11:25 AM CSTAssociated Order(s): EGD GI ENDOSCOPY [facility] Patient Name: Isabel Churchill Procedure Date: 07/07/2022 11:25 AM Date of : 2005 Admit Type: Inpatient Age: 17 Gender: Female Attending MD: Brittnee Babb M.D. [facility] 9 Note Status: Finalized Procedure: Upper GI endoscopy Indications: Epigastric abdominal pain, Anorexia, Nausea with vomiting Referring MD: Tay Faria M.D., Rita Lynn M.D., Grover Spaulding M.D. Providers: Brittnee Babb M.D. Medicines: Monitored Anesthesia Care Complications: No immediate complications. Estimated Blood Loss: Estimated blood loss: none. Procedure: Pre-Anesthesia Assessment: - Prior to the procedure, a History and Physical was performed, and patient medications, allergies and sensitivities were reviewed. The patient's tolerance of previous anesthesia was reviewed. - The risks and benefits of the procedure and the sedation options and risks were discussed with the patient. All questions were answered and informed consent was obtained. - Patient identification and proposed procedure were verified prior to the procedure by the physician, the nurse and the anesthesiologist. The procedure was verified in the procedure room. - ASA Grade Assessment: II - A patient with mild systemic disease. - Monitored anesthesia care under the supervision of a HEALTHCARE EDUCATOR was determined to be medically necessary for this procedure based on review of the patient's medical history, medications, and prior anesthesia history. The benefits, risks, and alternatives to the procedure and sedation were discussed and informed consent was obtained. The scope was passed under direct vision. The GIF [id number] endoscope was introduced through the mouth, and advanced to the second part of duodenum. The upper GI endoscopy was accomplished without difficulty. The patient tolerated the procedure well. Findings: The examined esophagus was normal. No evidence of esophagitis or other mucosal abnormality. Biopsies were taken with a cold forceps for histology. Verification of patient identification for the specimen was done. The entire examined stomach was normal. No ulcers or other mucosal abnormalities. Biopsies were taken with a cold forceps for histology. The duodenal bulb and second portion of the duodenum were normal. Impression: - Normal esophagus. Biopsied. - Normal stomach. Biopsied. - Normal duodenal bulb and second portion of the duodenum. Recommendation: - [facility] patient [facility] for [facility] care. - Advance diet as tolerated today and per recommendations from primary team. - Await pathology results. - Remainder of care per GI consult service. - In the unusual situation that you develop abdominal, bleeding or other significant problems in the days following this procedure please call [phone]. After hours and evenings please call [phone] and speak to the GI fellow juvenile probation officer. Please tell the fellow that Dr. Babbdid your procedure and that you were instructed to have the fellow call me or the physician covering for me to discuss the management of your condition. If you have an urgent problem, please go to the nearest emergency room and have the ER doctor call my office during the day or the GI fellow after hours and weekends to arrange admission or transfer to our facility. Please bring this report with you if you go to the emergency room. Brittnee Babb M.D. 07/07/2022 11:49:36 AM Number of Addenda: 0 Note Initiated On: 07/07/2022 11:25 AM Recognized by the [employer] for promoting quality in endoscopy NG PARTS SEWER documented in this encounter Consult Notes * Belkis Bojorquez NP - 07/12/2022 3:30 PM CSTAssociated Order(s): IP CONSULT TO PSYCHIATRY PSYCHIATRY CONSULTATION REPORT Consultation Requested: Date: 07/12/22 Requesting Consultation from: psychiatry Requesting Service: hospitalist Attending Requesting Consultation: Dr. Grover Spaulding Reason for Consultation: suspected eating disorder CURRENT PROBLEMS: Principal Problem: Nausea & vomiting Active Problems: Chest pain, unspecified type Vision changes Severe malnutrition (CMS/HCC) (HCC) Vitamin D deficiency High serum vitamin B12 SOURCE OF INFORMATION: - the patient, who is considered a reliable though guarded historian - collateral informant: her mother, Miguel Churchill, was contacted at [phone] with the patient'sverbal permission - review of the EMR, including the 2nd [facility] chart under - PDMP website- no results GUARDIANSHIP: No CHIEF COMPLAINT: Trying to eat HISTORY OF PRESENT ILLNESS: Isabel Churchill is a 17 y.o. single, domiciled, female high school student with no reported PMH, who presented 07/03 endorsing 3 weeks of abdominal pain, N/V, and PO intolerance associated with weight loss, chest pain, fatigue, and intermittent blurry vision. BMI 13.5. Prior to the current admission, the patient presented to several other hospitals with similar complaints. OSH work- up was largely unremarkable besides initial testing positive for influenza A, initial electrolyte abnormalities, and UDS + cannabinoids. Similarly, thorough work-up this admission including CT A/P and EGD have been unremarkable. Her course was c/b dystonic reaction to compazine, which resolved with avoidance of dopaminergic agents. NG tube was recently placed and she is tolerating TF. DDx per GI advanced manufacturing consultant includes MJ hyperemesis syndrome vs viral gastroenteritis vs functional N/V. Psychiatry is now consulted for evaluation for an eating disorder. Patient denies hx of eating disorder symptoms, specifically no intentional weight loss, dissatisfaction with body weight/shape, or food avoidance. 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 Then she fell ill in late May and was found to have the flu. She stopped smoking cannabis around that time. Nausea, vomiting, and abdominal pain that started late May persisted. She kept trying to eat but would vomit most of what she took in. She lost a significant amount of weight. She started taking 2+ hot showers daily as she found that the nausea would resolve with a hot shower. N/V would then return shortly after eating. She is aware of her current weight of 88#. She acknowledges being underweight and malnourished. She would like to get back to her usual body weight. She wants to run track this ring but knows she cannot do that in her current state. She is agreeable with hospitalization for now with the goal of gaining weight and improving PO intake. She dislikes the NG feeding tube becauseit is physically uncomfortable. Denies concern about increasing caloric intake via NG tube. She is hungry and is trying to increase PO intake. She drank apple juice during the conversation with eliane khan. Compared to her symptoms on admission, she feels she is better today in that she is not nauseous or vomiting today and she has been able to keep down some PO intake. Her mother denies concern for an eating disorder, but does note concern about the patient's mental health. Separately from the patient, her mother voiced concern that she has been depressed for a long time. She noticed the patient's attitude seem to change during mid middle school years. Whereas inher grade school years she seemed happy, in recent years she seems stuck in a low mood and doesn't seem to enjoy much. At times she has outbursts of irritability and crying. She seems to want her mother around all the time. Her mother mentioned several stressors in recent years that undoubtedly contributed to the patient's low mood. No overt suicidal comments made. No known history of intentionalself- harm. The patient's mother has been looking to connect the patient to a mental health provider, though the patient has not been interested. Long wait times before intake appointments has been a deterrent. The patient endorses depression and generalized worrying for as long as she can remember. She describes persistently low mood, irritability, and decreased enjoyment/interest. During periods when she is feeling worse emotionally, her appetite is lower and she sleeps less. She mentions there are multiple chronic situational stressors that contribute to her persistently low mood but offered few details. She denies worsened depression or anxiety in recent months. She voices feeling hopeful about the future and capable. Denies history of suicidal thoughts or attempts. She has never received mentalhealth treatment before. She is not interested in medication or counseling for depression and anxiety at this time. To cope with anxiety and depression, she has been using cannabis to self- medicate. She reports cannabis use started in freshman year of high school. She describes heavy daily use over these last several years. She had continued use because she likes the way it makes her feel, in that she feels more relaxed and things don't irritate her as much. Last smoked cannabis in late 05/2022 when she became ill with influenza A. She notes she is feeling more irritable since she stopped using cannabis. She is aware that Cannabis Hyperemesis Syndrome (CHS) is a proposed caused of her GI complaints, but hopes that it is not actually the cause because she would like to continue using it. She thinks it may be difficult to avoid using cannabis after discharge. Her mother is under the understanding that cannabis use led to the current GI symptoms and supports avoidance of further cannabis use. History reviewed. No pertinent past medical history. History reviewed. No pertinent surgical history. Allergies Allergen Reactions Compazine [Prochlorperazine] Dystonia Also droperidol MEDICATIONS: Current Facility-Administered Medications Medication Dose Route Frequency Provider Last Rate Last Admin acetaminophen (TYLENOL) tablet 1,000 mg 1,000 mg oral Q6H PRN Asad Marquis MD 1,000 mg at 07/11/22 0322 calcium carbonate (TUMS) chewable tablet 1,000 mg 400 mg of elemental calcium oral Q6H PRN Bailee Huerta MD 1,000 mg at 07/06/22 1133 diphenhydrAMINE (BENADRYL) injection 50 mg 50 mg intravenous Q6H PRN Juvenal Lancaster MD 50 mgat 07/06/222011 enoxaparin (LOVENOX) syringe 30 mg 30 mg subcutaneous Daily-2100 Asad Marquis MD 30 mg at 07/03/22 2150 ergocalciferol (VITAMIN D) capsule 50,000 Units 50,000 Units oral Weekly Asad Marquis MD 50,000 Units at 07/04/22 0950 famotidine (PEPCID) injection 10 mg 10 mg intravenous Q12H Grover Spaulding MD folic acid (FOLVITE) tablet 1 mg 1 mg oral Daily Asad Marquis MD 1 mg at 07/12/22 0821 lidocaine (LIDODERM) 5 % patch 1 patch 1 patch transdermal Daily Asad Marquis MD 1 patch at 07/12/22 0822 LORazepam (ATIVAN) injection 0.5 mg 0.5 mg intravenous Q6H PRN Grover Spaulding MD 0.5 mgat 07/11/22 0949 morphine injection 2 mg 2 mg intravenous Q4H PRN Grover Spaulding MD 2 mg at 07/11/22 1532 multivitamin with folic acid 400 mcg tablet 1 tablet 1 tablet oral Daily Asad Marquis MD 1tablet at 07/12/22 0822 ondansetron (ZOFRAN) injection 4 mg 4 mg intravenous Q8H Grover Spaulding MD 4 mg at 07/12/22 0821 pantoprazole (PROTONIX) 4 mg/mL injection 40 mg 40 mg intravenous Daily Asad Marquis MD 40mg at 07/12/22 0821 polyethylene glycol (MIRALAX) packet 17 g 17 g oral Daily Grover Spaulding MD 17 g at 07/12/22 0821 ramelteon (ROZEREM) tablet 8 mg 8 mg oral Nightly PRN Asad Marquis MD 8 mg at 07/03/22 2155 scopolamine patch 72 hour 1 patch 1 patch transdermal Q72H Shanique Bazan MD 1 patch at 07/08/22 1019 senna 1.76 mg/mL syrup 8.8 mg 8.8 mg oral BID PRN Grover Spaulding MD 8.8 mg at 07/11/22 1606 [Held by Provider] thiamine (VITAMIN B1) tablet 100 mg 100 mg oral Daily Asad Marquis MD traMADoL (ULTRAM) tablet 50 mg 50 mg oral QID PRN Grover Spaulding MD 50 mg at 07/08/22 1655 Family History Problem Relation Age of Onset Ovarian cancer Mother Social History Tobacco Use Smoking status: Some Days Types: Vaping Smokeless tobacco: None Substance and Sexual Activity Drug use: Yes Types: Marijuana Sexual activity: None Alcohol Use: Not on file SOCIAL HISTORY: Born and raised in: [place] Marital status: single Children: none Currently lives in: [place], [place] Education: currently in her senior year of high school 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 Hobbies: planning to run track this Spring Tobacco: some days vaping Drugs: daily heavy cannabis use starting in Freshman year of high school Alcohol: none reported REVIEW OF SYSTEMS: Review of systems per HPI and otherwise all other systems are negative PHYSICAL EXAMINATION: Vitals: 07/12/22 0825 BP: 94/62 Pulse: 77 Resp: 16 Temp: 36.9 ??C (98.4 ??F) SpO2: 100% A physical exam was performed by the primary team and reviewed. MENTAL STATUS EXAMINATION: General appearance & behavior: cachectic young female encountered sitting in bed, calm and in no apparent acute distress. Two visitors left the room for the duration of the encounter in accordance with the patient's preferences. She was calm and cooperative though guarded. She drank apple juicethroughout the encounter. Poor eye contact. Normal psychomotor activity. Appropriately groomed. Gait not assessed due to medical status. Not RTIS. Speech: low volume. Brief responses. Regular rate and rhythm. Normal latency. Flow of thought & associations: logical, goal-directed, and sequential Content of thought: Endorses motivation to increase PO intake and increase weight. Denies desire tolose weight. Denies a wish or SI. No reported HI, hallucinations, or delusions. Mood: irritable Affect: slightly irritable Insight/Judgment: fair/fair Sensorium/intellect: Awake, alert, oriented to person, place, situation, and time. Attention and concentration WNL. Recent and remote memory grossly intact. - Calculations: not formally assessed - Abstraction: not formally assessed - Language: fluent, appropriate vocabulary usage - Fund of knowledge: not formally assessed LABORATORY DATA: Laboratory review: Lab results in the last 24 hours: Recent Results (from the past 24 hour(s)) Comprehensive metabolic panel Collection Time: 07/11/22 10:54 PM Result Value Ref Range Sodium 139 135 - 145 mmol/L Potassium, pl 3.6 3.3 - 4.9 mmol/L Chloride 101 97 - 110 mmol/L CO2 30 22 - 32 mmol/L Anion gap 8 2 - 15 mmol/L BUN 10 8 - 25 mg/dL Creatinine 0.93 0.40 - 1.00 mg/dL Glucose 108 70 - 199 mg/dL Calcium 9.0 8.5 - 10.3 mg/dL Bilirubin, total 1.2 0.1 - 1.2 mg/dL Protein, pl 6.4 (L) 6.5 - 8.5 g/dL Albumin 4.0 3.5 - 5.0 g/dL Alk phos 38 (L) 70 - 260 Units/L ALT 10 7 - 45 Units/L AST 22 10 - 45 Units/L eGFR Collection Time: 07/11/22 10:54 PM Result Value Ref Range eGFR >90 90 - 130 mL/min/1.73 m2 Comprehensive metabolic panel Collection Time: 07/12/22 8:38 AM Result Value Ref Range Sodium 139 135 - 145 mmol/L Potassium, pl 4.0 3.3 - 4.9 mmol/L Chloride 100 97 - 110 mmol/L CO2 29 22 - 32 mmol/L Anion gap 10 2 - 15 mmol/L BUN 12 8 - 25 mg/dL Creatinine 1.01 (H) 0.40 - 1.00 mg/dL Glucose 92 70 - 199 mg/dL Calcium 9.1 8.5 - 10.3 mg/dL Bilirubin, total 1.0 0.1 - 1.2 mg/dL Protein, pl 6.3 (L) 6.5 - 8.5 g/dL Albumin 3.9 3.5 - 5.0 g/dL Alk phos 38 (L) 70 - 260 Units/L ALT 10 7 - 45 Units/L AST 19 10 - 45 Units/L eGFR Collection Time: 07/12/22 8:38 AM Result Value Ref Range eGFR 83 (L) 90 - 130 mL/min/1.73 m2 Initial labs this admission: Unremarkable CMP and CBC. Lipase 55. TSH WNL. HIV negative. Hs-Trop <4 x2. Urine hcg negative. UA clear. RVP negative. CXR clear. CT A/P without acute process. 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 Otherwise, unremarkable MRI appearance of the brain without findings to suggest cause or consequence of patient's symptoms. Head CT: no acute intracranial abnormality EEG: normal EEG without epileptiform abnormalities PRIMARY CONSULT DIAGNOSIS: Unspecified depression R/o cannabis use disorder Assessment: This is an 17yo F with no known PMH who presented 07/03 with c/o 3 weeks of N/V and abdominal pain with significant unintentional weight loss. Patient's presentation is notable for GI symptom onset in the setting of likely recent increase in chronic (x3-3.5yr) heavy cannabis use, nausea relieved by hot showers, and otherwise unremarkable medical work-up. There is insufficient evidence at present to indicate an eating disorder such as anorexia nervosa. 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 She reports heavy cannabis use had been at least in part an effort to self-medicate underlying anxiety and depression. Avoidance of cannabis use was advised, as recurrent use would likely result in recurrent GI symptoms. However patient notes it may be difficult to avoid using for various reasons including the motivation to continue self-medicating psychological distress. She is disinterested in medication or counseling options for treatment of depression a nd anxiety, however her mother supports engagement in mental health treatment and plans to continueto encourage her to seek care. #Risk assessment: The patient is considered to be at a low risk of harm to self and/or others compared to the generalpopulation. Risk factors include: chronic low mood, substance use Protective factors include: exhibits future planning, sense of responsibility to family, willingness to accept help, positive social supports, intact judgment Attempts to mitigate the risk of harm to self or others include: motivational interviewing, social work intervention, social support, including support person(s) in discharge planning, psychoeducation provided, offering medication for depression, encouraging outpatient MH/CD treatment Recommendations: 1. Antidepressant medication and psychotherapy were recommended for treatment of depression and anxiety impacting cannabis use, however she declines. As mentioned above, her mother is aware of resources local to them and plans to encourage the patient to participate in mental health treatment on anoutpatient basis. 2. Have advised patient to avoid cannabis use as it will likely cause recurrent GI symptoms. 3. Continued weight uatsdin is per the primary team. No specific eating disorder treatment is indicated at this time. Thank you for this consultation. Psychiatry will sign off now. For questions or concerns during business hours, please contact the Psych Consults B provider signed in to Vyykn. For urgent issues afterhours, please call the psych consult pager. Belkis Bojorquez, JUDAH, PMHNP-BC Cosigned by Farooq Elizalde MD at 07/13/2022 1:41 PM LINING PARTS SEWER NG PARTS SEWER NG PARTS SEWER * Gretta Bowers MD - 07/12/2022 11:41 AM CST General GI Initial Consult Chief complaint: Intractable Nausea/Vomiting Reason for consult: Intractable Nausea/Vomiting Interval Hx: - s/p 07/07 EGD normal. - VSS - No more N//V, tried PO diet - On NG, tolerating TF @ 20 cc, will be increased today, goal 50 cc/hr - Calorie count <50% - On Famotidine, scopolamine & lidocaine patch. History reviewed. No pertinent past medical history. History reviewed. No pertinent surgical history. No medications prior to admission. Allergies Allergen Reactions Compazine [Prochlorperazine] Dystonia Also droperidol Social History Tobacco Use Smoking status: Some Days Types: Vaping Smokeless tobacco: None Substance and Sexual Activity Drug use: Yes Types: Marijuana Sexual activity: None Alcohol Use: Not on file Family History Problem Relation Age of Onset Ovarian cancer Mother Review of Systems: Review of systems per HPI and otherwise all other systems are negative Vitals: 24hr Min/Max: Temp Min: 36.8 ??C (98.2 ??F) Max: 37.2 ??C (99 ??F) Pulse Min: 77 Max: 91 BP Min: 90/53 Max: 109/89 Resp Min: 14 Max: 16 SpO2 Min: 98 % Max: 100 % Most Recent : Vitals: 07/12/22 0825 BP: 94/62 Pulse: 77 Resp: 16 Temp: 36.9 ??C (98.4 ??F) SpO2: 100% I/O last 2 completed shifts: In: 200 [NG/GT:200] Out: - No intake/output data recorded. Objective Physical Exam: General Appearance: Alert, cooperative, no distress. HEENT: Normocephalic, without obvious abnormality, atraumatic. No scleral icterus or conjunctival pallor. Neck: No palpable lymphadenopathy. Lungs: Clear to auscultation bilaterally, respirations unlabored Cardiovascular: Regular rate and rhythm, no murmur. Abdomen: Soft, non-tender, bowel sounds active all four quadrants, no masses, no organomegaly, non-distended Extremities: No cyanosis or edema, no clubbing Skin: No rash Neurologic: Alert and oriented x 4. No focal deficits. CN II-XII intact. Psychiatric: Normal mood and affect Lab/Radiology/Diagnostic Review: Recent Labs Lab Units 07/12/22 0838 07/11/22 2254 07/11/22 0524 07/07/22 0648 07/06/22 2203 SODIUM mmol/L 139 139 140 < > -- POTASSIUM PLASMA mmol/L 4.0 3.6 3.7 < > -- CHLORIDE mmol/L 100 101 102 < > -- CO2 mmol/L 29 30 28 < > -- ANIONGAP mmol/L 10 8 10 < > -- GLUCOSE mg/dL 92 108 96 < > -- BUN SERUM mg/dL 12 10 10 < > -- CREATININE mg/dL 1.01* 0.93 0.92 < > -- CALCIUM mg/dL 9.1 9.0 9.5 < > -- ALBUMIN g/dL 3.9 4.0 -- -- -- BILIRUBIN TOTAL mg/dL 1.0 1.2 -- -- -- ALK PHOS Units/L 38* 38* -- -- -- ALT Units/L 10 10 -- -- -- AST Units/L 19 22 -- -- -- INR -- -- -- -- 1.2 < > = values in this interval not displayed. CT Head WO Contrast 07/04/2022: IMPRESSION: No intracranial hemorrhage, mass effect or midline shift. XR Chest Pa Lateral 2 Views 07/03/2022: IMPRESSION: There are no relevant prior studies available for comparison. The lungs are clear without pneumonic consolidation or pulmonary edema. There is no pleural effusion. There is no pneumothorax. The cardiomediastinal silhouette is within normal limits. CT Abdomen Pelvis W Contrast 07/03/2022: IMPRESSION: No CT correlate for acute abdominal pain. Assessment/Plan 17-year-old female no past medical history who presents with intractable nausea and vomiting w/ negative workup for which GI has been consulted. GI consult for intractable nausea and vomiting. #Intractable Nausea/Vomiting #Epigastric Pain The patient's symptomatologies concerning for marijuana hyperemesis syndrome versus viral gastroenteritis vs functional nausea/vomiting, but could benefit from rule out of structural disease versus local irritation/inflammation such as eosinophilic esophagitis should symptoms not improve. She had aprevious episode in 2020 which resolved after famotidine. Of note, attempts to treat w/ compazine resulted in dystonic reaction. s/p 07/07 EGD normal. Plan: - Continue pantoprazole to 40 mg po BID - Continue Famotidine 20 mg BID & scheduled zofran - Continue calori count - Nutrition following, appreciate recs - Will consider NG removal once able to reach target calorie intake per mouth with nutrition followup & daily assessment We will continue to follow-up with you. Thank you for involving us in the care of this patient. If you have any questions, please call the general GI phone during weekdays or the general GI phone during after hours and weekends. Gretta Bowers MD Cosigned by Keara Wild MD at 07/12/2022 5:10 PM LINING PARTS SEWER NG PARTS SEWER NG PARTS SEWER Associated attestation - Keara Wild MD - 07/12/2022 5:10 PM LINING PARTS SEWER I have seen and examined the patient on 07/12/22. I agree with the findings and plan of care with the following modifications:Patient reports eating burger, fries, ceral, and other snacks today. If she is meeting her caloric needs with oral intake for >24hrs (ie. Tomorrow), we could consider a trial of NG removal and just PO intake. She states she has only had one episode of nausea today that responded to anti-nausea medication. * Rosmery Roque, REEMA - 07/11/2022 2:36 PM CSTAssociated Order(s): IP CONSULT TO NUTRITION SERVICES CALORIE COUNT Day 1 Date 07/10 Day 2 Date 07/11 Day 3 Date Breakfast 0% 3 grapes and 2 apple juice - vomited all up Lunch Dinner 2 apple juice and 1 oatmeal cookie - emesis? Supplements Snacks Totals: Nutrition Assessment Reason for Assessment: Follow Up and TF Assessment Encounter Date: 07/11/22 2:36 PM Patient is a 17 y.o. female with chief complaint of nausea. LOS is 8 days. HPI: Isabel Churchill is an 17yF with no remarkable PMH presenting with multiple complaints. Patient reports over the past 3wks she has had onset of daily nausea/vomiting (NBNB) with associated non-radiating epigastric pain that is worse with emesis and movement. She is unsure of any changeswith PO intake. She states there is no consistent timeframe where she vomits following PO intake. She last tolerated a meal yesterday. She states fluid PO intake has been reasonable. He last BM was 3days ago, which is atypical for her. She states up until 3wks ago she was smoking marijuana daily. She endorses a normal appetite at baseline. Per chart review her wt was 102lbs in 02/2021 where she presented with similar symptoms and unremarkable workup (she, however, endorses different severity of symptoms at this time). She denies fever, cough, hematochezia, urinary symptoms. She originally presented to [facility], though left AMA on 07/01 due to perceived poor care - subsequently presenting to [facility] on the same day with unremarkable labs/workup. Of note it was reported she had a fall in the restroom without LOC/head trauma with wrist films negative. Pt had upper GI endoscopy today: Normal esophagus. Biopsied. - Normal stomach. Biopsied. - Normal duodenal bulb and second portion of the duodenum. Objective History reviewed. No pertinent past medical history. History reviewed. No pertinent surgical history. Social History Tobacco Use Smoking status: Some Days Types: Vaping Smokeless tobacco: None Substance and Sexual Activity Drug use: Yes Types: Marijuana Sexual activity: None Alcohol Use: Not on file Family History Problem Relation Age of Onset Ovarian cancer Mother Anthropometrics: Wt Readings from Last 3 Encounters: 07/10/22 40.2 kg (88 lb 11.2 oz) (<1 %, Z= -2.89)* * Growth percentiles are based on CDC (Girls, 2-20 Years) data. Anthropometrics Weight: 40.2 kg (88 lb 11.2 oz) Admission Weight : 42.1 kg Weight Change: 0.09 kg (0.20 lbs) IBW/kg (Calculated) : 63.5 kg Height: 172.7 cm (5' 8 ) Weight in (lb) to have BMI = 25: 164.1 BMI (Calculated): 13.5 Nutrition Needs Calculations: Calculated Energy Needs Using Equations Weight: 40.2 kg (88 lb 11.2 oz) Height: 172.7 cm (5' 8 ) Vital Signs: BP: 133/90 Temp: 36.6 ??C (97.9 ??F) Pulse: 116 Resp: 18 SpO2: 100 % Medications: Scheduled Meds: enoxaparin, 30 mg, subcutaneous, Daily-2100 ergocalciferol, 50,000 Units, oral, Weekly famotidine, 10 mg, intravenous, Q12H FERMIN folic acid, 1 mg, oral, Daily lidocaine, 1 patch, transdermal, Daily multivitamin therapeutic, 1 tablet, oral, Daily ondansetron, 4 mg, intravenous, Q8H ondansetron, 4 mg, intravenous, Once pantoprazole, 40 mg, intravenous, Daily polyethylene glycol, 17 g, oral, Daily scopolamine, 1 patch, transdermal, Q72H [Held by Provider] thiamine, 100 mg, oral, Daily Continuous Infusions: PRN Meds: acetaminophen calcium carbonate diphenhydrAMINE LORazepam morphine ramelteon senna traMADoL Lab Review: Sodium Date Value Ref Range Status 07/11/2022 140 135 - 145 mmol/L Final Potassium, pl Date Value Ref Range Status 07/11/2022 3.7 3.3 - 4.9 mmol/L Final BUN Date Value Ref Range Status 07/11/2022 10 8 - 25 mg/dL Final Creatinine Date Value Ref Range Status 07/11/2022 0.92 0.40 - 1.00 mg/dL Final Calcium Date Value Ref Range Status 07/11/2022 9.5 8.5 - 10.3 mg/dL Final No results found for: HGBA1C, HDL, LDLCALC, CHOL, TRIG Nursing Assessment: No intake or output data in the 24 hours ending 07/11/22 1436 Gastrointestinal Gastrointestinal (WDL): Exceptions to WDL Abdomen Inspection: Flat Bowel Sounds (All Quadrants): Hypoactive Palpation: Soft Last BM Date: 07/03/22 (per patient) GI Symptoms: Nausea, Vomiting Nausea Precipitating Factors: Eating Relieved by: Unrelieved (Comment) Last BM Date: 07/03/22 (per patient) Rex Scale Score: 18 Skin Integrity: Intact Dietary Orders (From admission, onward) Start Ordered 07/11/22 1323 Diet, Tube Feeding With Tray Jevity 1.2 marvin; 50 (start @ 10ml/hr and advance by 10ml/hr q12 hrs till goal); 100; Water; Every 6 hours Diet effective now Question Answer Comment Tube Feeding Formula: Jevity 1.2 marvin Tube Feeding Continuous (mL/hr): 50 start @ 10ml/hr and advance by 10ml/hr q12 hrs till goal Tube Feeding Flush (mL): 100 Flush Type: Water Flush Frequency: Every 6 hours 07/11/22 1323 07/09/22 0834 Adult Diet Regular Diet effective now Question: ([facility]) Diet type Answer: Regular 07/09/22 0833 07/05/22 1700 Oral Nutrition Supplements Select Supplement: Ensure Clear - Apple; Quantity (# of cans): 1 can All Meals Question Answer Comment Select Supplement: Ensure Clear - Apple Quantity (# of cans): 1 can 07/05/22 1442 Impression: RD consulted for tube feeding assessment. Noted NG in place, but KUB does not seem to confirm placement but per MD via epic chat he told RN to advance 5 cm and go ahead and use it. Patient's mother and grandmother at bedside. Patient did not talk very much. Patient ate 3 grapes and 2 juices today and vomited it all up. Patient does not seem to have tolerated any food yet without emesis. ASPEN Malnutrition Assessment: Acute Illness/Injury Severe Energy Intake: < or equal to 50% energy intake compared to estimated energy needs > (or equalto) 5 days Weight Loss: > 5% in 1 month Patient Meets Criteria for Severe Malnutrition: Yes ASPEN/AND Malnutrition Screening: Acute illnessor injury severe NUTRITION DIAGNOSIS Nutrition Diagnosis 1: Protein-Calorie Malnutrition - Severe Related to: Acute illness/injury, Nausea, Vomiting, Intolerance Evidenced by: BMI less than 16, PO under 50%, Weight loss, Patient interview INTERVENTION Discussed with MD that patient may require SBFT to bypass stomach if patient continues to vomit gastric feeds, which he noted will trail NG first. TF Goal: Recommend Jevity 1.2 starting @10ml/hr and advance by 10ml/hr q12 hrs till goal of 50 ml/hr via NG TF at goal will provide 1,440 calories and 66.6 gm of protein and 202 gm of CHO and 968 ml of water. Recommend water flush of 100 mg q6hrs, adjust per hydration status Monitor for refeeding syndrome. Recommend Monitor BMP + Mg/phos q12 hrs and replete as necessary. GOALS / MONITORING: Goals: Adequate nutrition to meet estimated needs by next assessment, Prevent further unintended weight loss during admission Interventions: Parenteral nutrition administration, Meals and snacks, Medical food supplement, Initial assessment Monitoring and Evaluation: Appetite, Hydration status, Labs, Supplement tolerance, PO intake, TPN tolerance, Stool patterns, Weight changes, Electrolyte changes Rosmery Fuentes, MS RDN, [facility], [facility] [employer] [facility] * Anna Feliciano, REEMA - 07/05/2022 2:52 PM CSTAssociated Order(s): IP CONSULT TO NUTRITION SERVICES Nutrition Assessment Reason for Assessment: Initial Nutrition Assessment Encounter Date: 07/05/22 2:52 PM Patient is a 17 y.o. female with chief complaint of nausea and vomiting. LOS is 2 days. HPI: Isabel Churchill is an 17yF with no remarkable PMH presenting with multiple complaints. Patient reports over the past 3wks she has had onset of daily nausea/vomiting (NBNB) with associated non-radiating epigastric pain that is worse with emesis and movement. She is unsure of any changeswith PO intake. She states there is no consistent timeframe where she vomits following PO intake. She last tolerated a meal yesterday. She states fluid PO intake has been reasonable. He last BM was 3days ago, which is atypical for her. She additionally reports left upper chest pain that is relatively constant and worsens with palpation and large breaths - she states paresthesias over the given area. She endorses generalized weakness and 10lb wt loss over this time course. Over the last few daysshe has noted blurry vision intermittently that self-resolves. She additionally endorses onset of facial spasms that started today over bilateral V3 regions, lasting 1-2min. She states up until 3wks ago she was smoking marijuana daily. She endorses a normal appetite at baseline. Per chart review her wt was 102lbs in 02/2021 where she presented with similar symptoms and unremarkable workup (she, however, endorses different severity of symptoms at this time). She denies fever, cough, hematochezia, urinary symptoms. She originally presented to [facility], though left AMA on 07/01 due to perceived poor care - subsequently presenting to [facility] on the same day with unremarkable labs/workup. Of note it was reported she had a fall in the restroom without LOC/head trauma with wrist films negative. In the ED she presented HD stable. Evaluation with unremarkable CMP/CBC, lipase 55, hs-trop <4 x2, urinary hCG negative, UA clear, RVP negative, CXR clear, CT- AP without acute process. She was administered 1L LR, zofran and droperidol and admitted for further evaluation. Objective History reviewed. No pertinent past medical history. History reviewed. No pertinent surgical history. Social History Tobacco Use Smoking status: Some Days Types: Vaping Smokeless tobacco: None Substance and Sexual Activity Drug use: Yes Types: Marijuana Sexual activity: None Alcohol Use: Not on file Family History Problem Relation Age of Onset Ovarian cancer Mother Anthropometrics: Wt Readings from Last 3 Encounters: 07/04/22 40.1 kg (88 lb 8 oz) (<1 %, Z= -2.91)* * Growth percentiles are based on CDC (Girls, 2-20 Years) data. Anthropometrics Weight: 40.1 kg (88 lb 8 oz) Admission Weight : 42.1 kg Weight Change: -1.95 kg (-4.31 lbs) IBW/kg (Calculated) : 63.5 kg Height: 172.7 cm (5' 8 ) Weight in (lb) to have BMI = 25: 164.1 BMI (Calculated): 13.5 Nutrition Needs Calculations: Calculated Energy Needs Using Equations Weight: 40.1 kg (88 lb 8 oz) Height: 172.7 cm (5' 8 ) Vital Signs: BP: (!) 133/102 Temp: 36.8 ??C (98.2 ??F) Pulse: 86 Resp: 16 SpO2: 100 % Medications: Scheduled Meds: enoxaparin, 30 mg, subcutaneous, Daily-2100 ergocalciferol, 50,000 Units, oral, Weekly folic acid, 1 mg, oral, Daily lidocaine, 1 patch, transdermal, Daily multivitamin therapeutic, 1 tablet, oral, Daily pantoprazole, 40 mg, intravenous, Daily scopolamine, 1 patch, transdermal, Q72H [Held by Provider] thiamine, 100 mg, oral, Daily Continuous Infusions: dextrose 5% and Lactated Ringer's, 75 mL/hr, Last Rate: 75 mL/hr (07/05/22 1021) PRN Meds: acetaminophen calcium carbonate diphenhydrAMINE LORazepam ondansetron ramelteon Lab Review: Sodium Date Value Ref Range Status 07/04/2022 140 135 - 145 mmol/L Final Potassium, pl Date Value Ref Range Status 07/04/2022 3.5 3.3 - 4.9 mmol/L Final BUN Date Value Ref Range Status 07/04/2022 4 (L) 8 - 25 mg/dL Final Creatinine Date Value Ref Range Status 07/04/2022 0.72 0.40 - 1.00 mg/dL Final Phosphorus, pl Date Value Ref Range Status 07/04/2022 3.9 2.3 - 4.5 mg/dL Final Albumin Date Value Ref Range Status 07/03/2022 4.5 3.5 - 5.0 g/dL Final Magnesium Date Value Ref Range Status 07/04/2022 1.9 1.4 - 2.5 mg/dL Final Calcium Date Value Ref Range Status 07/04/2022 9.3 8.5 - 10.3 mg/dL Final ALT Date Value Ref Range Status 07/03/2022 14 7 - 45 Units/L Final AST Date Value Ref Range Status 07/03/2022 23 10 - 45 Units/L Final Alk phos Date Value Ref Range Status 07/03/2022 48 (L) 70 - 260 Units/L Final Lipase Date Value Ref Range Status 07/03/2022 55 10 - 99 Units/L Final No results found for: HGBA1C, HDL, LDLCALC, CHOL, TRIG Nursing Assessment: No intake or output data in the 24 hours ending 07/05/22 1452 Gastrointestinal Gastrointestinal (WDL): Within Defined Limits Rex Scale Score: 19 Skin Integrity: Rash Dietary Orders (From admission, onward) Start Ordered 07/05/22 1700 Oral Nutrition Supplements Select Supplement: Ensure Clear - Apple; Quantity (# of cans): 1 can All Meals Question Answer Comment Select Supplement: Ensure Clear - Apple Quantity (# of cans): 1 can 07/05/22 1442 07/05/22 0950 Adult Diet Restricted; Mechanical Soft Diet effective now Question Answer Comment ([facility]) Diet type Restricted Modified Consistency: Mechanical Soft 07/05/22 0950 Impression: Pt seen this afternoon. Pt rocking in bed. C/O nausea. Pt talking to her mother on the phone. The pt states she has been eating poorly and not keeping food down for 3 weeks. States she has nausea andvomiting around the clock. Mother concurs and states she has been offering the pt Ensure, Pedialyteand soups at home. The pt states her UBW is 110 lbs and states she has never weighed more than 110 lbs. She reports a 10 lb wt loss over the past 3 weeks. Her current wt is 88 lbs. She weighed 102 lbs in February 2021. The pt is very thin. Deferred nutrition focused physical exam at this time. Pt's mother states the pt had been eating a typical teenage diet prior to 3 weeks ago. Pt enjoys Zkatter. Last BM 3 days ago. Labs: BMP, mg, phos normal. Vitamin D 17 IV fluids infusing at 75 ml/hr D5LR The pt meets criteria for acute severe malnutrition based on 10% loss of weight over 3 weeks, and po intake of < 50% of needs for > 5 days. The pt is unable to meet her nutrition goals with an oral diet. Suspect she would have difficulty tolerating enteral feeding. Would consider TPN. ASPEN Malnutrition Assessment: Acute Illness/Injury Severe Energy Intake: < or equal to 50% energy intake compared to estimated energy needs > (or equalto) 5 days Weight Loss: > 5% in 1 month Patient Meets Criteria for Severe Malnutrition: Yes ASPEN/AND Malnutrition Screening: Acute illnessor injury severe Present on admission NUTRITION DIAGNOSIS Nutrition Diagnosis 1: Protein-Calorie Malnutrition - Severe Related to: Acute illness/injury, Nausea, Vomiting, Intolerance Evidenced by: BMI less than 16, PO under 50%, Weight loss, Patient interview INTERVENTION Diet as tolerated; Mechanical soft currently ordered Ensure Clear TID Encouraged the pt to take small sips of clears hourly Would start IV Thiamine: 500 mg q 8 hours x 3 then 100 mg daily po if tolerated Continue multivitamin, folic acid and vitamin D po as tolerated GI consult pending Consult Nutrition support service for TPN assessment. GOALS / MONITORING: Goals: Adequate nutrition to meet estimated needs by next assessment, Prevent further unintended weight loss during admission Interventions: Parenteral nutrition administration, Meals and snacks, Medical food supplement, Initial assessment Monitoring and Evaluation: Appetite, Hydration status, Labs, Supplement tolerance, PO intake, TPN tolerance, Stool patterns, Weight changes, Electrolyte changes Anna Feliciano RD [phone] NG [employer] [facility] * Lucius Nguyen MD - 07/05/2022 10:28 AM CSTAssociated Order(s): IP CONSULT TO GASTROENTEROLOGY General GI Initial Consult Chief complaint: Intractable Nausea/Vomiting Reason for consult: Intractable Nausea/Vomiting Requesting provider: Shanique Bazan MD HPI: This is a 17 y.o. female with no significant past medical history who presents w/ intractable nausea and vomiting, abdominal pain. The patient initially presented on 07/03/2022 with sudden onset of daily nausea/vomiting which is nonbloody/nonbilious associated with nonradiating epigastric pain worse with emesis and movement. Otherwise, the patient reported that her last bowel movement was 3 days prior, which is atypical for her. She additionally had left upper chest pain which is relatively constant and worsened with palpation and large breaths associated with paresthesias over the given area. She endorsed generalized weakness and 10 lb weight loss in last 3 weeks. She additionally noted blurry vision intermittently with self resolution without intervention. Finally, she endorsed some facial spasms that last 1-2 minutes each. Up until 3 weeks ago, she was smoking marijuana daily. The patient originally presented to [facility] but left AMA on 07/01 due to perceived poor care, subsequently presented to [facility] in same-day with unremarkable labs and workup. Of note, the patient had a fall in the restroom without loss of consciousness or head trauma, ribfilms were negative. Thus far, the etiology of the patient's complaint remains unclear, with concern for cannabis induced hyperemesis versus GERD versus malnutrition related gastroparesis versus eating disorder component. CMP, CBC, lipase, troponin, urinary HCG, UA, RVP, HIV, chest x-ray, CT abdomen/pelvis were all unremarkable. U tox was positive for cannabinoids. The patient's hospital course was complicated by acute dystonic reaction likely due to heavy Compazine use at home in addition to droperidol and additional Compazine here for which Neurology was consulted with symptoms improved after cessation of thesemedications. Upon evaluation, the patient reported that she had another episode of emesis earlier this morning which was nonbloody nonbilious. She reports that she continues to have epigastric discomfort, with a sensation of fullness where she feels that the food is ready to come out in another episode of emesis, although she does not endorse any nausea. At the time of evaluation, she had just received a doseof Ativan. She has not yet had a bowel movement since admission. Otherwise, she reports no symptoms of fever/chills, shortness of breath, new focal deficits to strength or sensation. Of note, the patient presented in 02/26/2021 to [facility] Department with intermittent epigastric abdominal pain for 2-3 months worsened over the 2-3 weeks prior to evaluation associated with intermittent episodes of vomiting every other day as well as a sharp squeezing sensation worsened after eating. She improved with famotidine injection and was discharged on p.o. famotidine b.i.d.. The patient corroborated this episode, although she was not clear as to what the medication was or exactly when this happened, but she does report that she had no symptoms after this episode resolved until 3 weeks prior. History reviewed. No pertinent past medical history. History reviewed. No pertinent surgical history. No medications prior to admission. Allergies Allergen Reactions Compazine [Prochlorperazine] Dystonia Also droperidol Social History Tobacco Use Smoking status: Some Days Types: Vaping Smokeless tobacco: None Substance and Sexual Activity Drug use: Yes Types: Marijuana Sexual activity: None Alcohol Use: Not on file Family History Problem Relation Age of Onset Ovarian cancer Mother Review of Systems: Review of systems per HPI and otherwise all other systems are negative Vitals: 24hr Min/Max: Temp Min: 36.8 ??C (98.2 ??F) Max: 37.1 ??C (98.8 ??F) Pulse Min: 80 Max: 131 BP Min: 127/95 Max: 133/102 Resp Min: 16 Max: 18 SpO2 Min: 99 % Max: 100 % Most Recent : Vitals: 07/05/22 1338 BP: (!) 133/102 Pulse: 86 Resp: 16 Temp: 36.8 ??C (98.2 ??F) SpO2: 100% I/O last 2 completed shifts: In: 350 [P.O.:350] Out: - No intake/output data recorded. Objective Physical Exam: General Appearance: Alert, cooperative, no distress. HEENT: Normocephalic, without obvious abnormality, atraumatic. No scleral icterus or conjunctival pallor. Neck: No palpable lymphadenopathy. Lungs: Clear to auscultation bilaterally, respirations unlabored Cardiovascular: Regular rate and rhythm, no murmur. Abdomen: Soft, non-tender, bowel sounds active all four quadrants, no masses, no organomegaly, non-distended Extremities: No cyanosis or edema, no clubbing Skin: No rash Neurologic: Alert and oriented x 4. No focal deficits. CN II-XII intact. Psychiatric: Normal mood and affect Lab/Radiology/Diagnostic Review: Recent Labs Lab Units 07/04/22 0541 07/03/22 1023 07/03/22 1015 WBC K/cumm -- -- 3.4* HEMOGLOBIN g/dL -- -- 12.4 HEMATOCRIT % -- -- 37.3 PLATELETS K/cumm -- -- 217 SODIUM mmol/L 140 -- 141 POTASSIUM PLASMA mmol/L 3.5 -- 4.0 CHLORIDE mmol/L 104 -- 103 CO2 mmol/L 28 -- 27 ANIONGAP mmol/L 8 -- 11 GLUCOSE mg/dL 101 -- 106 BUN SERUM mg/dL 4* -- 3* CREATININE mg/dL 0.72 -- 0.74 CREATININE POC mg/dL -- 0.7 -- CALCIUM mg/dL 9.3 -- 9.5 ALBUMIN g/dL -- -- 4.5 BILIRUBIN TOTAL mg/dL -- -- 0.8 ALK PHOS Units/L -- -- 48* ALT Units/L -- -- 14 AST Units/L -- -- 23 CT Head WO Contrast 07/04/2022: IMPRESSION: No intracranial hemorrhage, mass effect or midline shift. XR Chest Pa Lateral 2 Views 07/03/2022: IMPRESSION: There are no relevant prior studies available for comparison. The lungs are clear without pneumonic consolidation or pulmonary edema. There is no pleural effusion. There is no pneumothorax. The cardiomediastinal silhouette is within normal limits. CT Abdomen Pelvis W Contrast 07/03/2022: IMPRESSION: No CT correlate for acute abdominal pain. Assessment/Plan 17-year-old female no past medical history who presents with intractable nausea and vomiting w/ negative workup for which GI has been consulted. GI consult for intractable nausea and vomiting. #Intractable Nausea/Vomiting #Epigastric Pain The patient's symptomatologies concerning for marijuana hyperemesis syndrome versus viral gastroenteritis vs functional nausea/vomiting, but could benefit from rule out of structural disease versus local irritation/inflammation such as eosinophilic esophagitis should symptoms not improve. She had aprevious episode in 2020 which resolved after famotidine. Of note, attempts to treat w/ compazine resulted in dystonic reaction. Assessment: - CMP, CBC, Lipase, Troponin, UA, Urine Hcg, HIV, RVP unremarkable - CXR wnl - CT Abd/Pelvis w/o acute finding - UTox w/ Cannabinoids Plan: - Would increase pantoprazole to 40 mg po BID - Consider addition of Famotidine 20 mg BID - If symptoms persist, will plan for EGD We will continue to follow-up with you. Thank you for involving us in the care of this patient. If you have any questions, please call the general GI phone during weekdays or the general GI phone during after hours and weekends. Lucius Nguyen MD PGY-III, Internal Medicine General GI Consult Service 07/05/2022 4:38 PM Cosigned by Rad Talley MD at 07/06/2022 12:22 AM [employer] [facility] [employer] NG [employer] Associated attestation - Rad Talley MD - 07/06/2022 12:22 AM [employer] I have seen and examined the patient on 07/05/2022. I agree with the findings and plan of care as documented in the resident's/fellow's note.. * Ayla Iverson MD - 07/04/2022 2:17 PM CSTAssociated Order(s): IP CONSULT TO NEUROLOGY Images from the original note were not included. Neurology Consult Note Visit date: 07/04/2022 Patient: Isabel Churchill Neurology Initial Consult Note Requesting Provider or Service: Shanique Bazan MD, Hospitalist Reason for Consult: dystonia? Subjective HISTORY OF PRESENT ILLNESS Isabel Churchill is a 17 y.o. female with no PMH who presented for 3 weeks of daily nausea and vomiting since ceasing marijuana consumption (of note, current BMI is 13.46). Neurology is consulted for dystonia. On presentation, she was endorsing jaw spasms, for which hospitalist team was trialing baclofen. Onmy interview today, she states that, for the past two days, she has been experiencing episodes where her left jaw, chest wall, arm, and sometimes leg tighten up. She states that this is painful andprevents her from being able to speak. She denies any history of seizures or other involuntary movements. Isabel did not have any regular home medications prior to her current onset of symptoms. However, she has been seen at numerous hospitals in the past couple of weeks for her nausea and vomiting. Whenquestioned about this further, her mother produced a box of compazine suppositories that Isabel hadbeen using every 6 hours prior to hospitalization. She also received droperidol yesterday. PAST MEDICAL & SURGICAL HISTORY History reviewed. No pertinent past medical history. History reviewed. No pertinent surgical history. FAMILY HX: Family History Problem Relation Age of Onset Ovarian cancer Mother SOCIAL HX: frequent marijuana use until 3 weeks ago OUTPATIENT MEDICATIONS HOME MEDICATIONS : Not on File INPATIENT MEDICATIONS Scheduled Medications: Scheduled Medications Medication Dose Route Frequency enoxaparin (LOVENOX) syringe 30 mg 30 mg subcutaneous Daily-2100 ergocalciferol (VITAMIN D) capsule 50,000 Units 50,000 Units oral Weekly folic acid (FOLVITE) tablet 1 mg 1 mg oral Daily lidocaine (LIDODERM) 5 % patch 1 patch 1 patch transdermal Daily multivitamin with folic acid 400 mcg tablet 1 tablet 1 tablet oral Daily pantoprazole (PROTONIX) 4 mg/mL injection 40 mg 40 mg intravenous Daily [Held by Provider] thiamine (VITAMIN B1) tablet 100 mg 100 mg oral Daily Continuous Medications: Current Facility-Administered Medications Medication Dose Route Frequency Last Admin dextrose 5% and Lactated Ringer's 75 mL/hr intravenous Continuous 75 mL/hr at 07/04/22 0217 PRN Medications: acetaminophen, 1,000 mg baclofen, 5 mg, 5 mg at 07/04/22 0950 diphenhydrAMINE, 50 mg prochlorperazine, 5 mg OR prochlorperazine, 5 mg ramelteon, 8 mg, 8 mg at 07/03/22 2449 REVIEW OF SYSTEMS A complete review of symptoms was performed including constitutional symptoms, cardiovascular, respiratory, gastrointestinal, genitourinary, musculoskeletal, neurological, psychiatric, endocrine, immunologic, integumentary, hematological, eyes, ears, nose, mouth and throat. All symptoms negative except as per HPI. Objective PHYSICAL EXAM Vitals: 24 hr Min/Max: Temp Min: 36.5 ??C (97.7 ??F) Max: 36.9 ??C (98.4 ??F) Pulse Min: 65 Max: 170 BP Min: 93/48 Max: 145/90 Resp Min: 16 Max: 24 SpO2 Min: 99 % Max: 100 % Most Recent: Vitals: 07/04/22 1134 BP: 101/64 Pulse: 65 Resp: 16 Temp: 36.9 ??C (98.4 ??F) SpO2: 100% Height: 172.7 cm (5' 8 ) Weight: 40.1 kg (88 lb 8 oz) BMI (Calculated): 13.5 GENERAL EXAMINATION CONSTITUTIONAL: no acute distress, resting comfortably HENT: normocephalic, atraumatic, mucous membranes moist EYES: anicteric sclera PULM: no increased work of breathing CV/EXT: Extremities are warm and well perfused; no visible edema SKIN: dry, no suspicious rashes or lesions noted PSYCH: flat affect NEUROLOGIC EXAM: Mental Status:The patient is alert and oriented to person, place, time and reason for visit. Attention is intact. Language: The patient has fluent speech and follows commands. Cranial Nerves II-XII: Visual infante are full to finger counting. Pupils equal. Extraocular movements are full and withoutnystagmus. Some horizontal saccades present. V1-3 is intact to light touch bilaterally. Face is symmetric. There is no dysarthria. Motor: Strength is 5/5 throughout. Decreased muscle bulk, normal tone. Reflexes: not tested Sensation: Light touch is normal in all four extremities. Coordination: Finger to nose is normal bilaterally. Ambulation: deferred Lab/Radiology/Diagnostic Review: Laboratory Data Recent Labs Lab Units 07/03/22 1015 WBC K/cumm 3.4* HEMOGLOBIN g/dL 12.4 HEMATOCRIT % 37.3 PLATELETS K/cumm 217 Recent Labs Lab Units 07/04/22 0541 07/03/22 1023 07/03/22 1015 SODIUM mmol/L 140 -- 141 POTASSIUM PLASMA mmol/L 3.5 -- 4.0 CHLORIDE mmol/L 104 -- 103 CO2 mmol/L 28 -- 27 BUN SERUM mg/dL 4* -- 3* CREATININE mg/dL 0.72 -- 0.74 CREATININE POC mg/dL -- 0.7 -- GLUCOSE mg/dL 101 -- 106 CALCIUM mg/dL 9.3 -- 9.5 Recent Labs Lab Units 07/03/22 1015 ALK PHOS Units/L 48* BILIRUBIN TOTAL mg/dL 0.8 TOTAL PROTEIN g/dL 7.3 ALT Units/L 14 AST Units/L 23 No results found for: HGBA1C, No results found for: LDLCALC Neuro Diagnostics: Results for orders placed or performed during the hospital encounter of 07/03/22 CT Head WO Contrast Narrative EXAMINATION: CT head without contrast HISTORY: Muscle spasm. TECHNIQUE: Noncontrast CT of the brain was performed with images acquired from skull base to vertex. COMPARISON: None available. FINDINGS: Topogram demonstrates no lytic lesions or fractures. There is no acute intracranial hemorrhage. Ventricles are of normal size and morphology. No mass effect or midline shift is present. The lema-white matter differentiation is normal. The visualized portions of the orbits are normal. The visualized portions of the mastoids are normal. The visualized portions of the paranasal sinuses are normal. No fractures are identified. Calcifications of the falx are noted. Impression No acute intracranial abnormality. Dictated by: Lamin Vargas M.D. Assessment /Plan ASSESSMENT AND PLAN Ms. Churchill is a 17 y.o. female with no PMH who presents with 3 weeks of intractable nausea and vomiting after ceasing cannabis use. We are consulted for evaluation of dystonia. As she has been using a number of anti-dopaminergic agents to try to control her nausea (q6h compazine suppositories prior to admission, given droperidol here), this is the most likely cause of her dystonia. However, other etiologies including psychogenic and epileptic activity cannot be excluded. Recommendations: # Dystonia Recommend discontinuing anti-dopaminergic medications including compazine May consider benadryl, ativan, or cogentin for management of dystonia Extended routine EEG to rule out epileptiform activity Head CT to evaluate for intracranial cause Thank you for this consult. Please do not hesitate to contact us with any questions or concerns. Recommendations are preliminary until staffed. This consult was staffed with Dr. Schwab on 07/04/22. Neurology consults will plan to see the patient again when EEG results are available. If you have any questions or need re-evaluation in the interim, please contact neurology consults at [phone] (senior) and specify that this consult was staffed with Consult Team B. Ayla Iverson MD PGY-1 Addendum: On rounds, patient noted to have increased tone in LUE and LLE. Also complaining of intermittently blurred vision. Would additionally recommend Brain MRI WWO to evaluate these visual issues. Cosigned by Zain Schwab MD at 07/04/2022 10:31 PM LINING [employer]S SEWER NG PARTS SEWER NG PARTS SEWER NG PARTS SEWER Associated attestation - Zain Schwab MD - 07/04/2022 10:31 PM [employer] Attending Documentation: I have seen and examined the patient on 07/04/22. I have reviewed and discussed the above note with the resident/fellow and agree with the findings and plan as documented. Zain Schwab MD, MSc documented in this encounter Nursing Notes * Bridgette Santiago RN - 07/11/2022 6:35 AM CST 07/11/22 0500 Notification Reason for Communication Status update (has not had a bm since 07/03.) Name of Person Notified Jaclyn Fisher Role of Person Notified Resident Method of Communication Call Response No new orders (will pass it on to day team) Notification Time 0634 NG PARTS SEWER * Filomena Orozco RN - 07/07/2022 2:00 PM CST Pt refused post procedure VS intervals. NG PARTS SEWER * Bridgette Santiago RN - 07/06/2022 11:23 PM CST 07/06/222328 Notification Reason for Communication Status update (No relief with Zofran. Plan to give Ativan) Name of Person Notified Hospitalist Role of Person Notified Resident Method of Communication Call Response No new orders Notification Time 2328 NG PARTS SEWER * Bridgette Santiago RN - 07/06/2022 10:15 PM CST 07/06/222214 Notification Reason for Communication Status update (Patient still nauseous) Name of Person Notified Hospitalist Role of Person Notified Resident Method of Communication Call Response See orders Notification Time 2214 Patient was found inducing vomiting by putting her fingers in the back of her throat. When asked, she reported that It's sitting in my chest, I want it out . Advised to stop and a 2nd dose Zofran was given. NG PARTS SEWER NG PARTS SEWER * Bridgette Santiago RN - 07/06/2022 8:00 PM CST 07/06/221999 Notification Reason for Communication Status update (patient c/o itchiness at iv insertion site.To add itching as indication for benadryl) Name of Person Notified Hospitalist Role of Person Notified Resident Method of Communication Call Response See orders Notification Time 1999 NG [employer]S SEWER documented in this encounter ED Notes * Jorge Degroot MD - 07/03/2022 9:16 AM CST HPI Chief Complaint Patient presents with Chest Pain HPI Isabel Churchill is an 17 yo female with no known past medical history presenting with 3 weeks of multiple complaints including intermittent vision changes, chest pain, jaw pain, vomiting abdominal pain. For the last 3 weeks she is had these intermittent symptoms, has reportedly been seen at [facility], [facility], [facility] and worked up and discharged forthese concerns. She states that she intermittently has painless vision loss in both eyes, was reporting normal vision at this time. She is been having chest pain for the last 3 weeks which she describes as constant pressure, unrelated to exertion, no aggravating or relieving factors identified. Shefeels that the skin above her left-sided chest is also numb and tingling. For the past 2 days she is been having tightening of her face and jaw pain. She is also been largely unable to tolerate p.o. for the past 3 weeks and endorses generalized abdominal pain and constant nausea and vomiting. She reports thorough workups at outside hospitals and records review is significant for AMA discharge from [facility] a few days ago secondary to perceived poor care. Has had intermittent fevers, chills. Denies diarrhea and dysuria. Denies weight loss but review of records also significant for about 12lbs of weight loss over last few months. She does not take uvdx-oit-ppquyjj control, no prior intra-abdominal surgeries. Denies drug use alcohol and tobacco. No known allergies. Family history significant for multiple members with hypertension diabetes. Mom with ovarian cancer. Maternal grandfather with prostate cancer. Maternal grandmother with PA at age 89. No sudden cardiac . Per chart review: 05/01/2023 from [facility] ED: Chief Complaint : Vomiting and Abdominal Pain HPI : Isabel Churchill is a 17-year-old female who presents for evaluation of worsening abdominal pain with nausea vomiting over the past 3 weeks. Patient did leave AMA from [facility] today as shewas concerned with care she was received Patient History: Patient Active Problem List Diagnosis Date Noted Chest pain, unspecified type 07/03/2022 History reviewed. No pertinent past medical history. History reviewed. No pertinent surgical history. History reviewed. No pertinent family history. Social History Tobacco Use Smoking status: None Smokeless tobacco: None Substance and Sexual Activity Alcohol use: None Drug use: None Sexual activity: None Social History Social History Narrative Not on file Review of Systems Review of Systems All other systems reviewed and are negative. Physical Exam ED Triage Vitals Temp Pulse Resp BP SpO2 07/03/22 0808 07/03/22 0808 07/03/22 0808 07/03/22 0808 07/03/22 0808 36.5 ??C (97.7 ??F) 106 18 129/82 97 % Temp src Heart Rate Source Patient Position BP Location FiO2 (%) 07/03/22 0930 07/03/22 1855 -- -- -- Oral Monitor Height Height Method Weight Weight Method 07/03/22 0808 07/03/22 0808 07/03/22 0808 07/03/22 0808 1.727 m (5' 8 ) Stated 39.9 kg (88 lb) Stated Physical Exam Vitals and nursing note reviewed. Constitutional: Comments: Frail, very thin, tearful HENT: Right Ear: External ear normal. Left Ear: External ear normal. Nose: Nose normal. Mouth/Throat: Mouth: Mucous membranes are moist. Eyes: Pupils: Pupils are equal, round, and reactive to light. Cardiovascular: Rate and Rhythm: Regular rhythm. Tachycardia present. Heart sounds: Normal heart sounds. Pulmonary: Breath sounds: No wheezing. Abdominal: Tenderness: There is guarding. Comments: Very thin, diffusely tender Musculoskeletal: Cervical back: No tenderness. Right lower leg: No edema. Left lower leg: No edema. Skin: General: Skin is warm. Capillary Refill: Capillary refill takes less than 2 seconds. Neurological: General: No focal deficit present. Mental Status: She is alert and oriented to person, place, and time. Psychiatric: Comments: Tearful MDM Medical Decision Making 17-year-old female presenting with 3 weeks of multiple complaints. Frail, concern for recent weightloss and now BMI 13. Has been worked up at multiple emergency rooms and admitted to [facility] with recent AMA discharge. Differential at this time includes anorexia, malignancy, cannabis hyperemesis, Crohn's/IBS and other intra-abdominal/inflammatory processes, concern for malnutrition, electrolyte abnormalities, pancreatitis, acs. Less likely ectopic or other , will check urine hcg. Willget CBC, CMP, lipase, EKG, chest x-ray, troponin, UA. Will get CT of abdomen pelvis because we do not have 1 in our system. Anticipate admission for further workup. Amount and/or Complexity of Data Reviewed Labs: ordered. Radiology: ordered. ECG/medicine tests: ordered and independent interpretation performed. Risk Prescription drug management. Decision regarding hospitalization. Attending Summary of Care ED Course as of 07/03/221958 Time: 07/03 918 Comment: 17 yo fem presenting with multiple complaints, including intermittent klarissa painless vision loss for the last 3 days with no prodrome or identified pattern, left-sided chest pain (10/10) that is nonexertional, jaw pain and facial tightening, severe abd pain, nausea, and vomiting. Her neurologic exam is completely normal, lungs CTA, ht sounds normal, abd soft/nontender. Pt is very thin with BMI < 14. DDx is broad given multiple sxs, but constellation also raises concerns for anorexia and malnutrition with potential for psychogenic component. It would be very unusual for an 17 yo to have ACS/PA, though is possible. Also consider biliary colic, pancreatitis, colitis, inflammatory bowel disease. Will check labs, get CT abdomen/pelvis, hydrate, assess for metabolic abnormality due to poor PO intake, check HCG to r/o . By: Yayo Patterson MD Time: 07/03 0921 Comment: Reviewed records from 06/18 at [facility], weight was listed as 46 kg at that time, now down to 40 kg. She tested + for fluA at that time. By: Yayo Patterson MD Time: 07/03 8283 Comment: CT IMPRESSION: No CT correlate for acute abdominal pain. By: Jorge Degroot MD Chest pain, unspecified type Severely underweight adult Jorge Degroot MD Resident 07/03/221958 Cosigned by Yayo Patterson MD at 07/11/2022 3:03 PM [employer]ING [employer] SE[employer]ER NG PARTS SEWER NG PARTS SEWER Associated attestation - Yayo Patterson MD - 07/11/2022 3:03 PM LINING [employer]S SEWER I have seen and examined the patient on 07/03/2022. I agree with the findings and plan of care as documented in the resident's note. * Mirta Barnett RN - 07/03/2022 8:28 AM CST Bed: ED1-10 Expected date: Expected time: Means of arrival: Comments: Nandini Churchill Arlene Elizabeth, RN 07/03/22 0828 NG PARTS SEWER * Mirta Barnett RN - 07/03/2022 8:06 AM CST Pt comes with c/o chest pain that started 3 weeks ago and has gotten worse today. Pt also endorsingjaw pain that started today. Pt tearful in triage stating that she has been seen at multiple hospitals. Pt states nothing makes the chest pain better or worse NG PARTS SEWER documented in this encounter Miscellaneous Notes * Summary of Treatment Recommendations Non-Billable - Heriberto Virgen MD - 07/13/2022 1:03 PM CST GENERAL GI SIGN OFF NOTE & RECOMMENDATIONS Date of Sign Off: 07/13/22 Diagnosis: Recurrent nausea/vomiting PMD: Rita Lynn MD Inpatient GI Attending: Dr. Keara Wild Summary of Consultation: 17 y.o. female who presents w/ intractable nausea and vomiting, abdominal pain. She presented with 3 weeks of daily NBNB emesis associated with non-radiating epigastric pain unrelated to PO intake. Able to hold down most fluids but almost no solids. She was evaluated here with the following work-up unrevealing: CBC, CMP, lipase, hCB, UA, CT A/P, Pb level, EGD with random biopsies unreleaving. UDS was positive for marijuana. Of note, 3 weeks prior to her presentation, she was smoking marijuana daily. She progressively improved during her admission with prn and scheduled antiemetics. At the time of discharge, she was tolerating full meals. Her overall presentation is most consistent with cannabis hyperemesis syndrome. Of note, she did have dystonic reaction to compazine this admission. Procedures: EGD 07/07/22 Impression: - Normal esophagus. Biopsied. - Normal stomach. Biopsied. - Normal duodenal bulb and second portion of the duodenum. Sign Off Recommendations - continue as needed antiemetics. Avoid compazine - Avoid marijuana - cont PPI for dyspepsia Outpatient Follow Up Plan: outpatient GI/hepatology follow up is not needed. The patient should follow-up with their primary care provider after discharge. Case discussed with Dr. Keara Wild. Thank you for involving us in the care of this patient. If you have any questions and the patient is still hospitalized, please call the GI Fellow General Call [facility] phone number available on [employer]. Ifthe patient has been discharged, please call the gastroenterology appointments line at [phone] for questions regarding clinic/procedures follow up. Heriberto Virgen MD Gastroenterology Fellow Cosigned by Keara Wild MD at 07/14/2022 8:23 AM LINING PARTS SEWER NG PARTS SEWER NG PARTS SEWER * Subjective & Objective - Gita Duarte MD - 07/13/2022 1:03 PM CST Daily Progress Note Division of Hospital Medicine Name: Isabel Churchill Today: July 13, 2022 : 2005 Age: 17 y.o. female Admit: 07/03/2022 Bed: [id number] Subjective Interval History: Reports no n/v over past day. Patient has been going down to cafeteria, able to tolerate full meals (including burgers, etc.). No diarrhea. Objective Medications: Scheduled: enoxaparin, 30 mg, subcutaneous, Daily-2100 ergocalciferol, 50,000 Units, oral, Weekly famotidine, 10 mg, intravenous, Q12H folic acid, 1 mg, oral, Daily lidocaine, 1 patch, transdermal, Daily multivitamin therapeutic, 1 tablet, oral, Daily ondansetron, 4 mg, intravenous, Q8H pantoprazole, 40 mg, intravenous, Daily polyethylene glycol, 17 g, oral, Daily scopolamine, 1 patch, transdermal, Q72H [Held by Provider] thiamine, 100 mg, oral, Daily Infusions: PRN: acetaminophen calcium carbonate diphenhydrAMINE lidocaine LORazepam phenoL ramelteon senna traMADoL Vitals: 24hr Min/Max: Temp Min: 36.6 ??C (97.9 ??F) Max: 37 ??C (98.6 ??F) Pulse Min: 74 Max: 93 BP Min: 93/55 Max: 110/77 Resp Min: 15 Max: 16 SpO2 Min: 100 % Max: 100 % Most Recent: Vitals: 07/13/22 0935 BP: 110/77 Pulse: 93 Resp: 16 Temp: 36.6 ??C (97.9 ??F) SpO2: 100% Intake/Output Summary (Last 24 hours) at 07/13/2022 1352 Last data filed at 07/13/2022 0625 Gross per 24 hour Intake 481 ml Output -- Net 481 ml Physical Exam General: Comfortable, NAD, thin/cachectic HENT: NC/AT. MMM. OP clear. NG tube in place. Eyes: PERRL. EOMI. Conjunctivae normal. Neck: Supple, full ROM. No JVD. Resp: CTAB. Nml effort on RA. CV: RRR. Nml S1, S2. No m/r/g. GI: Soft, NTND. +bowel sounds. Ext: No edema. Distal ext warm, well-perfused. MSK: No joint deformities, swelling. Neuro: A&Ox3. CN II-XII intact. 10/22 BUE & BLE strength. Intact FNF & [id number], normal gait Psych: Appropriate mood/affect. No SI/HI. Derm: Warm, dry. No rashes. Lab/Diagnostic Review: Recent Results (from the past 36 hour(s)) Comprehensive metabolic panel Collection Time: 07/12/22 8:38 AM Result Value Ref Range Sodium 139 135 - 145 mmol/L Potassium, pl 4.0 3.3 - 4.9 mmol/L Chloride 100 97 - 110 mmol/L CO2 29 22 - 32 mmol/L Anion gap 10 2 - 15 mmol/L BUN 12 8 - 25 mg/dL Creatinine 1.01 (H) 0.40 - 1.00 mg/dL Glucose 92 70 - 199 mg/dL Calcium 9.1 8.5 - 10.3 mg/dL Bilirubin, total 1.0 0.1 - 1.2 mg/dL Protein, pl 6.3 (L) 6.5 - 8.5 g/dL Albumin 3.9 3.5 - 5.0 g/dL Alk phos 38 (L) 70 - 260 Units/L ALT 10 7 - 45 Units/L AST 19 10 - 45 Units/L eGFR Collection Time: 07/12/22 8:38 AM Result Value Ref Range eGFR 83 (L) 90 - 130 mL/min/1.73 m2 Comprehensive metabolic panel Collection Time: 07/12/22 9:20 PM Result Value Ref Range Sodium 138 135 - 145 mmol/L Potassium, pl 4.1 3.3 - 4.9 mmol/L Chloride 104 97 - 110 mmol/L CO2 28 22 - 32 mmol/L Anion gap 6 2 - 15 mmol/L BUN 10 8 - 25 mg/dL Creatinine 0.90 0.40 - 1.00 mg/dL Glucose 101 70 - 199 mg/dL Calcium 8.9 8.5 - 10.3 mg/dL Bilirubin, total 0.6 0.1 - 1.2 mg/dL Protein, pl 6.2 (L) 6.5 - 8.5 g/dL Albumin 3.9 3.5 - 5.0 g/dL Alk phos 47 (L) 70 - 260 Units/L ALT 16 7 - 45 Units/L AST 24 10 - 45 Units/L eGFR Collection Time: 07/12/22 9:20 PM Result Value Ref Range eGFR >90 90 - 130 mL/min/1.73 m2 Magnesium Collection Time: 07/12/22 9:20 PM Result Value Ref Range Magnesium 2.0 1.4 - 2.5 mg/dL Phosphorus Collection Time: 07/12/22 9:20 PM Result Value Ref Range Phosphorus, pl 3.5 2.3 - 4.5 mg/dL Comprehensive metabolic panel Collection Time: 07/13/22 9:32 AM Result Value Ref Range Sodium 140 135 - 145 mmol/L Potassium, pl 4.4 3.3 - 4.9 mmol/L Chloride 101 97 - 110 mmol/L CO2 29 22 - 32 mmol/L Anion gap 10 2 - 15 mmol/L BUN 11 8 - 25 mg/dL Creatinine 0.87 0.40 - 1.00 mg/dL Glucose 94 70 - 199 mg/dL Calcium 9.2 8.5 - 10.3 mg/dL Bilirubin, total 0.5 0.1 - 1.2 mg/dL Protein, pl 6.4 (L) 6.5 - 8.5 g/dL Albumin 4.0 3.5 - 5.0 g/dL Alk phos 43 (L) 70 - 260 Units/L ALT 12 7 - 45 Units/L AST 25 10 - 45 Units/L eGFR Collection Time: 07/13/22 9:32 AM Result Value Ref Range eGFR >90 90 - 130 mL/min/1.73 m2 I have reviewed the laboratory results. Imaging Results: XR Abdomen Ap 1 Vw Narrative: EXAMINATION: Two abdomen one view radiographs. HISTORY: Nasogastric tube placement verification COMPARISON: CT abdomen pelvis dated 07/03/2022 Impression: Two single view radiograph of the abdomen are submitted for evaluation. Exam 1: 07/11/2022 at 12:23 PM A gastric tube projects over the esophagus, with tip at the gastroesophageal junction and side-port in the distal esophagus. The bowel gas pattern is within normal limits. Exam 2: 07/11/2022 at 2:37 PM There is been interval advancement of nasogastric tube with tip in the gastric body and side-port at the level of the fundus. The bowel gas pattern is within normal limits. Lung bases are clear Dictated by: Susy Ramirez M.D. The radiology attending physician has personally reviewed this study, and had reviewed and/or edited this written report and agrees with it. Electronically signed by: Miguel Juan M.D. XR Abdomen Ap 1 Vw Narrative: EXAMINATION: Two abdomen one view radiographs. HISTORY: Nasogastric tube placement verification COMPARISON: CT abdomen pelvis dated 07/03/2022 Impression: Two single view radiograph of the abdomen are submitted for evaluation. Exam 1: 07/11/2022 at 12:23 PM A gastric tube projects over the esophagus, with tip at the gastroesophageal junction and side-port in the distal esophagus. The bowel gas pattern is within normal limits. Exam 2: 07/11/2022 at 2:37 PM There is been interval advancement of nasogastric tube with tip in the gastric body and side-port at the level of the fundus. The bowel gas pattern is within normal limits. Lung bases are clear Dictated by: Susy Ramirez M.D. The radiology attending physician has personally reviewed this study, and had reviewed and/or edited this written report and agrees with it. NG PARTS SEWER * Plan of Care - Rebecca Avila RN - 07/12/2022 5:43 PM CST Goals: Clinical Goals for the Shift: ASSESS, VITALS,MEDS Summary: Problem: Nutritional: Goal: Dietary intake will improve Outcome: Progressing Goal: Ability to maintain a balanced intake and output will improve Outcome: Progressing NG PARTS SEWER * Plan of Care - Angelica Barnes RN - 07/11/2022 4:12 PM CST Goals: Clinical Goals for the Shift: monitor pain and nausea Summary: Problem: Nutritional: Goal: Dietary intake will improve Outcome: Progressing Goal: Ability to maintain a balanced intake and output will improve Outcome: Progressing NG PARTS SEWER * Plan of Care - Alyssa Khan RN - 07/11/2022 4:09 PM CST Weekend CM Note: Per medical team, Pt is not medically ready for discharge today. Please call covering weekend CM for any needs. NG [employer]S SEWER * Plan of Aren - Angelica Barnes RN - 07/10/2022 1:40 PM CST Goals: Clinical Goals for the Shift: monitor vitals, no N&V Summary: Problem: Fluid Volume: Goal: Maintenance of adequate hydration will improve 07/10/2022 1340 by Angelica Barnes RN Outcome: Adequate for Discharge 07/10/2022 1004 by Angelica Barnes RN Outcome: Progressing Problem: Nutritional: Goal: Maintenance of adequate nutrition will improve 07/10/2022 1340 by Angelica Barnes RN Outcome: Adequate for Discharge 07/10/2022 1004 by Angelica Barnes RN Outcome: Progressing Problem: Safety: Goal: Will remain free from falls 07/10/2022 1340 by Angelica Barnes RN Outcome: Adequate for Discharge 07/10/2022 1004 by Angelica Barnes RN Outcome: Progressing Problem: Sensory: Goal: Pain level will decrease 07/10/2022 1340 by Angelica Barnes RN Outcome: Adequate for Discharge 07/10/2022 1004 by Angelica Barnes RN Outcome: Progressing Problem: Health Behavior: Goal: Understanding of discharge needs will improve 07/10/2022 1340 by Angelica Barnes RN Outcome: Adequate for Discharge 07/10/2022 1004 by Angelica Barnes RN Outcome: Progressing NG [employer]S SEWER * Plan of Care - Angelica Barnes RN - 07/10/2022 10:04 AM CST Goals: Clinical Goals for the Shift: monitor vitals, no N&V Summary: Problem: Fluid Volume: Goal: Maintenance of adequate hydration will improve Outcome: Progressing Problem: Nutritional: Goal: Maintenance of adequate nutrition will improve Outcome: Progressing Problem: Safety: Goal: Will remain free from falls Outcome: Progressing Problem: Sensory: Goal: Pain level will decrease Outcome: Progressing Problem: Health Behavior: Goal: Understanding of discharge needs will improve Outcome: Progressing NG [employer]S SEWER * Plan of Care - Shelby Griggs RN - 07/09/2022 4:23 PM CST Per Medical Chart/Rounds/IDR: patient is not medically ready for discharge, she is on a calorie count and if she continues to do well with PO intake overnight, she will discharge over the weekend ADD: 07/10 Plan/referrals made/in place: discharge to home with no additional needs Support following discharge: family Transportation: grandmother, patient may need ride at discharge F/U Appointments: 07/13 at 2:45 PM Plan for weekend discharge: discharge to home, patient may need ride For weekend assistance, please check the treatment team in [facility] for the assigned case loader operator or contact the weekend Case Management phone, [employer] * Medical Student - Mary Kate Hillman - 07/09/2022 11:53 AM CST Daily Progress Note Division of Hospital Medicine Name: Isabel Churchill Today: July 09, 2022 : 2005 Age: 17 y.o. female Admit: 07/03/2022 Bed: [id number] Subjective Chief complaint: nausea Interval History: Pt declined placement of NG tube yesterday, decided to try eating. She ate a salad last night and toast this morning with good appetite. Later she began vomiting again. She also complained of chest pain. EKG acquired. Objective Medications: Scheduled: enoxaparin, 30 mg, subcutaneous, Daily-2100 ergocalciferol, 50,000 Units, oral, Weekly famotidine, 10 mg, intravenous, Q12H FERMIN folic acid, 1 mg, oral, Daily lidocaine, 1 patch, transdermal, Daily multivitamin therapeutic, 1 tablet, oral, Daily ondansetron, 4 mg, intravenous, Q8H pantoprazole, 40 mg, intravenous, Daily scopolamine, 1 patch, transdermal, Q72H [Held by Provider] thiamine, 100 mg, oral, Daily Infusions: PRN: acetaminophen calcium carbonate diphenhydrAMINE LORazepam ramelteon traMADoL Vitals: 24hr Min/Max: Temp Min: 36.5 ??C (97.7 ??F) Max: 36.8 ??C (98.2 ??F) Pulse Min: 85 Max: 136 BP Min: 91/58 Max: 124/82 Resp Min: 14 Max: 16 SpO2 Min: 98 % Max: 99 % Most Recent: Vitals: 07/09/22 0805 BP: 119/80 Pulse: 85 Resp: 16 Temp: SpO2: 99% No intake or output data in the 24 hours ending 07/09/22 1153 Physical Exam Constitutional: NAD, malnourished Eyes: PERRL, EOMI, anicteric ENT: NCAT, oropharynx normal, moist mucus membranes Lungs: Clear to auscultation in all lung infante, unlabored, trachea midline Cardiovascular: RRR, normal S1 and S2, no murmurs, no JVD GI: Soft, non-tender, non-distended, bowel sounds +, no organomegaly Skin: No new rashes, lesions or bruises Extremities: Normal without edema or cyanosis Lymph: No cervical, supraclavicular, axillary or inguinal adenopathy Neurologic: AOx4, CNII-XII intact, normal strength and sensation Psychiatric: Reserved I have reviewed the patient's vital signs. Lab/Diagnostic Review: Recent Results (from the past 36 hour(s)) Basic metabolic panel Collection Time: 07/08/22 6:23 AM Result Value Ref Range Sodium 138 135 - 145 mmol/L Potassium, pl 4.1 3.3 - 4.9 mmol/L Chloride 100 97 - 110 mmol/L CO2 26 22 - 32 mmol/L Anion gap 12 2 - 15 mmol/L BUN 13 8 - 25 mg/dL Creatinine 0.93 0.40 - 1.00 mg/dL Glucose 90 70 - 199 mg/dL Calcium 9.6 8.5 - 10.3 mg/dL eGFR Collection Time: 07/08/22 6:23 AM Result Value Ref Range eGFR >90 90 - 130 mL/min/1.73 m2 Basic metabolic panel Collection Time: 07/09/22 5:21 AM Result Value Ref Range Sodium 136 135 - 145 mmol/L Potassium, pl 3.7 3.3 - 4.9 mmol/L Chloride 101 97 - 110 mmol/L CO2 28 22 - 32 mmol/L Anion gap 7 2 - 15 mmol/L BUN 13 8 - 25 mg/dL Creatinine 0.91 0.40 - 1.00 mg/dL Glucose 92 70 - 199 mg/dL Calcium 9.2 8.5 - 10.3 mg/dL eGFR Collection Time: 07/09/22 5:21 AM Result Value Ref Range eGFR >90 90 - 130 mL/min/1.73 m2 I have reviewed the laboratory results. Imaging Results: MRI Brain W WO Contrast Narrative: EXAMINATION: Magnetic resonance imaging (MRI) of the brain and brainstem without and with contrast HISTORY: Persistent nausea and vomiting, blurry vision, TECHNIQUE: Multiplanar multi-weighted MRI of the brain and brainstem was performed without and with intravenous contrast using the general brain protocol. Contrast information: 8 mL Dotarem COMPARISON: CT head 07/04/2022 FINDINGS: The scalp and calvarium are normal. The superior sagittal sinus demonstrates normal venous flow. The corpus callosum is normal in shape and signal intensity. 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 The pituitary and sella are normal. The brainstem and craniocervical junction are unremarkable. Stepwise low-grade anterolisthesis of C2 on C3 and C3 on C4. Diffusion weighted images reveal no hyperintensities to suggest acute cerebral infarction. The susceptibility weighted sequences reveal no evidence of acute or chronic hemorrhage. The ventricles are normal in size and position without evidence of hydrocephalus . There are no areas of abnormal contrast enhancement. The paranasal sinuses are normal. The visualized portions of the mastoids are unremarkable. The orbits appear normal. Normal flow voids are demonstrated in the carotid arteries and basilar artery. 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 Otherwise, unremarkable MRI appearance of the brain without findings to suggest cause or consequence of patient's symptoms. Dictated by: Juvenal Salazar MD The radiology attending physician has personally reviewed this study, and had reviewed and/or edited this written report and agrees with it. Electronically signed by: Beatrice Silva M.D. EEG Extended EEG Report Patient Name: Isabel Churchill [facility] Medical Record Number (MRN): [id number] Formerly [facility] Record: No Soarian MRN Date of (): 2005 EEG Date: 07/04/2022 Ordering Provider: Shanique Bazan MD CC: Rita Lynn Start Time: 07/04/2022 2:49:55 PM End Time: 07/04/2022 3:56:57 PM Introduction: Ms. Churchill is a 17 y.o. female without significant past medical history who presented with dystonic movements in setting of intractable nausea and vomiting after ceasing cannabis use, concerning for seizures. EEG was performed to evaluate for epileptiform activity. This is a 32 channel EEG recording acquired on a [employer] EEG-1200 acquisition system. Scalp electrodes were placed according to the international 10-20 System. The analog EEG was filtered from 1-70 Hz and digitally sampled at 200 Hz. The record was then reformatted for review in bipolar and referential montages. EEG Description: There was moderate EMG and movement artifact during the recording. The awake background included a 9 Hz posterior dominant rhythm which attenuated with eye opening and activity. During drowsiness, identified by ocular signs and alpha attenuation, there was intermittent, diffuse, asynchronous theta activity admixed with 2-4 Hz polymorphic frontotemporal delta activity. As the record progressed, stage II sleep was identified by vertex waves, sleep spindles and K-complexes. Hyperventilation was not performed. Photic strobe stimulation elicited prominent driving. No photoparoxysmal response was elicited. There were no focal, lateralized or epileptiform abnormalities. There was a single event recorded occurring at 15:47 PM. The patient reported she had blureed vision, more prominent in the right eye. There were no EEG changes with this event. Interpretation: This is a normal awake, stage I, and stage II sleep extended EEG. The recorded event did not have EEG correlate. By signing this report, the attending Electroencephalographer certifies that he/she personally reviewed the electrodiagnostics study and has edited this report to fully conform with his/her intent. Signing Attending: Miguel Mitchell MD Assessment/Plan * Nausea & vomiting Assessment & Plan Patient presenting with subacute N/V with limited ability to maintain consistent PO intake over course. Pt previously experienced these symptoms in 2020, which resolved with famotidine. Thus far evaluation with unremarkable CMP/CBC, lipase 55, hs-trop <4 x 2, urinary hCG negative, UA clear, RVP negative, HIV neg, CXR clear, CT-AP without acute process, Utox + cannabinoids but otherwise negative. Heavy metals: Cu low, Pb negative. GI consult ddx includes cannabis hyperemesis syndrome, viral gasteroenteritis, functional n/v, structural disease such as eosinophilic esophagitis. EGD + pathology results were normal. Most likely dx at this point is cannabis hyperemesis syndrome. - Zofran pediatric dosed - Trial IV ativan prn, scopolamine patch - Trial PPI - Avoid cannabis - Consider psych consult - Consult GI regarding a trial of topical capsaicin (PMID: [id number]) Acute dystonic reaction due to drugs Assessment & Plan Likely due to heavy use of compazine at home, plus got one dose of droperidol here and additional compazine. CT head unremarkable. EEG unremarkable. MRI head ordered due to concerns of blurry vision,results unremarkable. - avoid all dopaminergic medications - added compazine to allergy list w/ reaction of dystonia - neurology following - IV Benadryl prn dystonia High serum vitamin B12 Assessment & Plan Hold supplementation Vitamin D deficiency Assessment & Plan 25 vit D on admission - started 50,000 units ergocalciferol qweek, plan x8w and repeat level Severe malnutrition (CMS/HCC) (HCC) Assessment & Plan Patient with chronically low BMI per chart review with current BMI 14 and reported 10 lb weight loss recently related to vomiting and poor po intake. - RD consult - ADAT, Ensure TIDAC - Calorie Count -monitor for refeeding syndrome Chest pain, unspecified type Assessment & Plan Constant of L upper chest/shoulder region - worse with palpation and arm movement. hs-trop/EKG unremarkable; suspect MSK in etiology. Chest pain restarted 07/09 following pt beginning to eat again. K+of 3.7. -EKG - Trial lidocaine patch, tylenol - PT/OT Mary Kate Hillman Cosigned by Grover Spaulding MD at 07/09/2022 4:56 PM LINING [employer]S SEWER NG PARTS SEWER NG PARTS SEWER * Plan of Care - Angelica Barnes RN - 07/09/2022 10:58 AM CST Goals: Clinical Goals for the Shift: ASSESS, VITALS,MEDS Summary: Problem: Fluid Volume: Goal: Maintenance of adequate hydration will improve Outcome: Progressing Problem: Nutritional: Goal: Maintenance of adequate nutrition will improve Outcome: Progressing Problem: Safety: Goal: Will remain free from falls Outcome: Progressing Problem: Sensory: Goal: Pain level will decrease Outcome: Progressing Problem: Health Behavior: Goal: Understanding of discharge needs will improve Outcome: Progressing NG [employer]S SEWER * Plan of Care - Marianne Frost RN - 07/08/2022 10:25 PM CST Problem: Fluid Volume: Goal: Maintenance of adequate hydration will improve Outcome: Progressing Problem: Nutritional: Goal: Maintenance of adequate nutrition will improve Outcome: Progressing Problem: Safety: Goal: Will remain free from falls Outcome: Progressing Problem: Sensory: Goal: Pain level will decrease Outcome: Progressing Problem: Health Behavior: Goal: Understanding of discharge needs will improve Outcome: Progressing Goals: Clinical Goals for the Shift: ASSESS, VITALS,MEDS Summary: Patient and grandmother had several questions written down that they wanted to address during bedside report. Day shift nurse and myself did our best to answer their questions but the majority of them are focused on diagnosis and treatment plan. Patient wrote down her questions so she can address them with the physician during rounds in the morning. Patient and grandmother deny further concerns/questions at this time. NG PARTS SEWER * Plan of Care - Filomena Orozco RN - 07/08/2022 2:39 PM CST Goals: Clinical Goals for the Shift: ASSESS, VITALS,MEDS Summary: Problem: Fluid Volume: Goal: Maintenance of adequate hydration will improve Outcome: Progressing Problem: Nutritional: Goal: Maintenance of adequate nutrition will improve Outcome: Progressing Problem: Safety: Goal: Will remain free from falls Outcome: Progressing Problem: Sensory: Goal: Pain level will decrease Outcome: Progressing Problem: Health Behavior: Goal: Understanding of discharge needs will improve Outcome: Progressing NG PARTS SEWER * Consults, Subsequent - Gretta Bowers MD - 07/08/2022 1:46 PM [employer]ING [employer]S SEWER Brief GI Update 17 y/o F no significant PMHx p/w intractable nausea/vomiting c/f marijuana hyperemesis syndrome vs GERD vs less likely viral gastroenteritis vs other, workup entirely negative thus far. Imaging: CT Abd/Pelvis w/o finding to explain acute abdominal pain/n/v - s/p 07/07 EGD normal. Pt seen today, HDS. Reports no vomiting yesterday after procedure, was able to keep down solids ate yesterday but has small amount of vomiting today & want to eat salads today. Abdomen: no gaurding or significant tenderness. She's on Famotidine, scopolamine & lidocaine patch. Recs: - Continue to monitor for now - Hold off feeding tube for now, consider if persistent N/V Gretta Bowers MD PhD Gastroenterology Fellow NG [employer] SEWER * Plan of Care - Shelby Griggs RN - 07/08/2022 1:25 PM CST Per Medical Chart/Rounds/IDR: patient is not medically ready for discharge ADD: 07/13 Impression: EGD was normal, MD wants to try NG for tube feeds and monitor patient for refeeding syndrome, at this point, unclear if patient will discharge to home on tf Plan & referrals made/in place: discharge when medically stable, additional home needs still talita determined Support following discharge: family Transportation: family F/U Appt: pending Additional needs/information: n/a Problem: acute medical needs and anticipated discharge needs Goal: collaboration with patient/family and clinical team to identify needs and appropriate interventions in order to establish a safe discharge plan that retains patient within the continuum of care Treasury Agent will continue to follow and assist with discharge planning as needed DANI Dela Cruz, cloud software engineer For case management needs from 4:31 PM - 7:59 AM, please call the magnetometer operator at telephone number: [phone] For weekend/holiday needs from the hours of 8:00 AM to 4:30 PM, please call the weekend case loader operator at telephone number: [phone] NG [employer]S SEWER * Medical Student - Mary Kate Hillman - 07/08/2022 1:08 PM CST Daily Progress Note Division of Hospital Medicine Name: Isabel Churchill Today: July 08, 2022 : 2005 Age: 17 y.o. female Admit: 07/03/2022 Bed: [id number] Subjective Chief complaint: nausea Interval History: No incidents overnight. Pt reports EGD went well yesterday, is feeling okay today. Pt endorsed that hot showers help with the nausea. At home, she reports taking over 2 showers a dayfor the nausea. Objective Medications: Scheduled: enoxaparin, 30 mg, subcutaneous, Daily-2100 ergocalciferol, 50,000 Units, oral, Weekly famotidine, 10 mg, intravenous, Q12H FERMIN folic acid, 1 mg, oral, Daily lidocaine, 1 patch, transdermal, Daily multivitamin therapeutic, 1 tablet, oral, Daily pantoprazole, 40 mg, intravenous, Daily scopolamine, 1 patch, transdermal, Q72H [Held by Provider] thiamine, 100 mg, oral, Daily Infusions: PRN: acetaminophen calcium carbonate diphenhydrAMINE LORazepam ondansetron ramelteon traMADoL Vitals: 24hr Min/Max: Temp Min: 36.5 ??C (97.7 ??F) Max: 36.8 ??C (98.2 ??F) Pulse Min: 81 Max: 127 BP Min: 101/81 Max: 133/93 Resp Min: 16 Max: 18 SpO2 Min: 96 % Max: 99 % Most Recent: Vitals: 07/08/22 0757 BP: 122/86 Pulse: 81 Resp: 16 Temp: 36.7 ??C (98.1 ??F) SpO2: 96% No intake or output data in the 24 hours ending 07/08/22 1308 Physical Exam Constitutional: NAD, malnourished Eyes: PERRL, EOMI, anicteric ENT: NCAT, oropharynx normal, moist mucus membranes Lungs: Clear to auscultation in all lung infante, unlabored, trachea midline Cardiovascular: RRR, normal S1 and S2, no murmurs, no JVD GI: Soft, non-tender, non-distended, bowel sounds +, no organomegaly Skin: No new rashes, lesions or bruises Extremities: Normal without edema or cyanosis Lymph: No cervical, supraclavicular, axillary or inguinal adenopathy Neurologic: AOx4, CNII-XII intact, normal strength and sensation Psychiatric: Reserved I have reviewed the patient's vital signs. Lab/Diagnostic Review: Recent Results (from the past 36 hour(s)) Basic metabolic panel Collection Time: 07/07/22 6:48 AM Result Value Ref Range Sodium 138 135 - 145 mmol/L Potassium, pl 4.0 3.3 - 4.9 mmol/L Chloride 98 97 - 110 mmol/L CO2 26 22 - 32 mmol/L Anion gap 14 2 - 15 mmol/L BUN 12 8 - 25 mg/dL Creatinine 0.92 0.40 - 1.00 mg/dL Glucose 92 70 - 199 mg/dL Calcium 9.6 8.5 - 10.3 mg/dL eGFR Collection Time: 07/07/22 6:48 AM Result Value Ref Range eGFR >90 90 - 130 mL/min/1.73 m2 Basic metabolic panel Collection Time: 07/08/22 6:23 AM Result Value Ref Range Sodium 138 135 - 145 mmol/L Potassium, pl 4.1 3.3 - 4.9 mmol/L Chloride 100 97 - 110 mmol/L CO2 26 22 - 32 mmol/L Anion gap 12 2 - 15 mmol/L BUN 13 8 - 25 mg/dL Creatinine 0.93 0.40 - 1.00 mg/dL Glucose 90 70 - 199 mg/dL Calcium 9.6 8.5 - 10.3 mg/dL eGFR Collection Time: 07/08/22 6:23 AM Result Value Ref Range eGFR >90 90 - 130 mL/min/1.73 m2 I have reviewed the laboratory results. Imaging Results: MRI Brain W WO Contrast Narrative: EXAMINATION: Magnetic resonance imaging (MRI) of the brain and brainstem without and with contrast HISTORY: Persistent nausea and vomiting, blurry vision, TECHNIQUE: Multiplanar multi-weighted MRI of the brain and brainstem was performed without and with intravenous contrast using the general brain protocol. Contrast information: 8 mL Dotarem COMPARISON: CT head 07/04/2022 FINDINGS: The scalp and calvarium are normal. The superior sagittal sinus demonstrates normal venous flow. The corpus callosum is normal in shape and signal intensity. 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 The pituitary and sella are normal. The brainstem and craniocervical junction are unremarkable. Stepwise low-grade anterolisthesis of C2 on C3 and C3 on C4. Diffusion weighted images reveal no hyperintensities to suggest acute cerebral infarction. The susceptibility weighted sequences reveal no evidence of acute or chronic hemorrhage. The ventricles are normal in size and position without evidence of hydrocephalus . There are no areas of abnormal contrast enhancement. The paranasal sinuses are normal. The visualized portions of the mastoids are unremarkable. The orbits appear normal. Normal flow voids are demonstrated in the carotid arteries and basilar artery. 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 Otherwise, unremarkable MRI appearance of the brain without findings to suggest cause or consequence of patient's symptoms. Dictated by: Juvenal Salazar MD The radiology attending physician has personally reviewed this study, and had reviewed and/or edited this written report and agrees with it. Electronically signed by: Beatrice Silva M.D. EEG Extended EEG Report Patient Name: Isabel Churchill [facility] Medical Record Number (MRN): [id number] Formerly [facility] Record: No Soarian MRN Date of (): 2005 EEG Date: 07/04/2022 Ordering Provider: Shanique Bazan MD CC: Rita Lynn Start Time: 07/04/2022 2:49:55 PM End Time: 07/04/2022 3:56:57 PM Introduction: Ms. Churchill is a 17 y.o. female without significant past medical history who presented with dystonic movements in setting of intractable nausea and vomiting after ceasing cannabis use, concerning for seizures. EEG was performed to evaluate for epileptiform activity. This is a 32 channel EEG recording acquired on a [employer] EEG-1200 acquisition system. Scalp electrodes were placed according to the international 10-20 System. The analog EEG was filtered from 1-70 Hz and digitally sampled at 200 Hz. The record was then reformatted for review in bipolar and referential montages. EEG Description: There was moderate EMG and movement artifact during the recording. The awake background included a 9 Hz posterior dominant rhythm which attenuated with eye opening and activity. During drowsiness, identified by ocular signs and alpha attenuation, there was intermittent, diffuse, asynchronous theta activity admixed with 2-4 Hz polymorphic frontotemporal delta activity. As the record progressed, stage II sleep was identified by vertex waves, sleep spindles and K-complexes. Hyperventilation was not performed. Photic strobe stimulation elicited prominent driving. No photoparoxysmal response was elicited. There were no focal, lateralized or epileptiform abnormalities. There was a single event recorded occurring at 15:47 PM. The patient reported she had blureed vision, more prominent in the right eye. There were no EEG changes with this event. Interpretation: This is a normal awake, stage I, and stage II sleep extended EEG. The recorded event did not have EEG correlate. By signing this report, the attending Electroencephalographer certifies that he/she personally reviewed the electrodiagnostics study and has edited this report to fully conform with his/her intent. Signing Attending: Miguel Mitchell MD Assessment/Plan * Nausea & vomiting Assessment & Plan Patient presenting with subacute N/V with limited ability to maintain consistent PO intake over course. Pt previously experienced these symptoms in 2020, which resolved with famotidine. Thus far evaluation with unremarkable CMP/CBC, lipase 55, hs-trop <4 x 2, urinary hCG negative, UA clear, RVP negative, HIV neg, CXR clear, CT-AP without acute process, Utox + cannabinoids but otherwise negative. GI consult ddx includes cannabis hyperemesis syndrome, viral gasteroenteritis, functional n/v, structural disease such as eosinophilic esophagitis. EGD + pathology results were normal. Most likely dx at this point is cannabis hyperemesis syndrome. - Cu, Pb level ordered - Zofran pediatric dosed - Trial IV ativan prn, scopolamine patch - Trial PPI - Avoid cannabis - Consider psych consult - Consult GI regarding a trial of topical capsaicin (PMID: [id number]) Acute dystonic reaction due to drugs Assessment & Plan Likely due to heavy use of compazine at home, plus got one dose of droperidol here and additional compazine. CT head unremarkable. EEG unremarkable. MRI head ordered due to concerns of blurry vision,results unremarkable. - avoid all dopaminergic medications - added compazine to allergy list w/ reaction of dystonia - neurology following - IV Benadryl prn dystonia High serum vitamin B12 Assessment & Plan Hold supplementation Vitamin D deficiency Assessment & Plan 25 vit D on admission - started 50,000 units ergocalciferol qweek, plan x8w and repeat level Severe malnutrition (CMS/HCC) (HCC) Assessment & Plan Patient with chronically low BMI per chart review with current BMI 14 and reported 10 lb weight loss recently related to vomiting and poor po intake. - RD consult - ADAT, Ensure TIDAC - Calorie Count -Dobhoff tube placed today, start tube feeds, monitor for refeeding syndrome Chest pain, unspecified type Assessment & Plan Constant of L upper chest/shoulder region - worse with palpation and arm movement. hs-trop/EKG unremarkable; suspect MSK in etiology - Trial lidocaine patch, tylenol - PT/OT Mary Kate Hillman Cosigned by Grover Spaulding MD at 07/09/2022 4:56 PM [employer] NG [employer]S SEWER NG [employer]S SEWER NG [employer]S SEWER * Provider Query - Grover Spaulding MD - 07/08/2022 1:03 PM [employer] Clinical Indicators/Treatments: Patient presented with multiple complaints and was admitted for chest pain and nausea and vomiting. 07/03 ED Note: Physical Exam: Frail, very thin... - very thin with BMI < 14... ED Dx: Severely underweight adult 07/03 H&P: Severe malnutrition - Patient with chronically low BMI per chart review with current BMI 14 - Patient reports normal PO intake prior to start of symptoms 3wks ago - Unclear if related to malabsorptive issue vs eating disorder - RD consult - ADAT, Ensure TIDAC - Calorie Count 07/05 Note: BMI (Calculated): 13.5 Impression: ...pt is very thin. Deferred nutrition focused physical exam at this time. Pt's mother states the pt had been eating a typical teenage diet prior to 3 weeks ago...meets criteria for acute severe malnutrition based on 10% loss of weight over 3 weeks, and po intake of < 50% of needs for > 5 days. The pt is unable to meet her nutrition goals with an oral diet. Suspect she would have difficulty tolerating enteral feeding. Would consider TPN. INTERVENTION Diet as tolerated; Mechanical soft currently ordered Ensure Clear TID Encouraged the pt to take small sips of clears hourly Would start IV Thiamine: 500 mg q 8 hours x 3 then 100 mg daily po if tolerated Continue multivitamin, folic acid and vitamin D po as tolerated GI consult pending Consult Nutrition support service for TPN assessment. Monitoring and Evaluation: Appetite, Hydration status, Labs, Supplement tolerance, PO intake, TPN tolerance, Stool patterns, Weight changes, Electrolyte changes Descriptive findings stated in the physical exam cannot be coded unless the provider further documents the condition as a diagnosis. Specify a diagnosis that reflects the patient???s physical exam findings. Document in the medical record and on the form below. __x_ Cachexia, specify etiology if known ___ Findings clinically insignificant ___ Other, specify below ___ Clinically unable to determine Additional Provider Response: [place] [employer] Parenteral and Enteral Nutrition Cachexia Cachexia defined as: Complex medical syndrome associated with underlying illness and characterized by loss of muscle mass with or without loss of fat mass Potential Causes May Include: Malignancy (usually metastatic with an extensive tumor burden) Chronic Inflammatory Disorders (e.g., chronic infections, inflammatory bowel disease, and collagen vascular disorders) Organ Failure (e.g., cardiac, pulmonary [chronic obstructive pulmonary disease], and renal) Reference: Nutrition in Clinical Practice; Volume 36, No 5; March 2021; pp [phone]; 2020 [employer] for Parenteral and Enteral Nutrition. Use of terms such as likely, suspected, possible, or probable (associated with a specific diagnosisthat is being evaluated, monitored, or treated as if it exists) are acceptable and can be coded in the inpatient setting when documented at the time of discharge. This documentation will become part of the patient???s medical record. [employer] * Plan of Care - Filomena Orozco RN - 07/07/2022 4:23 PM CST Goals: Clinical Goals for the Shift: Hydration, ambulation Summary: Problem: Fluid Volume: Goal: Maintenance of adequate hydration will improve Outcome: Not Progressing Problem: Nutritional: Goal: Maintenance of adequate nutrition will improve Outcome: Not Progressing Problem: Safety: Goal: Will remain free from falls Outcome: Not Progressing Problem: Sensory: Goal: Pain level will decrease Outcome: Not Progressing Problem: Health Behavior: Goal: Understanding of discharge needs will improve Outcome: Not Progressing [employer] * Assessment & Plan Note - Gita Duarte MD - 07/07/2022 4:11 PM CSTAssociated Problem(s): Vision changes Patient reports intermittent blurry vision over both eyes over the past several days (not present during encounter). No complaints currently. 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 - May consider ophtho referral outpatient [facility] [employer] [employer] [employer] SE[employer] NG [employer] SEWER * Assessment & Plan Note - Gita Duarte MD - 07/07/2022 4:11 PM CSTAssociated Problem(s): Severe malnutrition (CMS/HCC) (HCC) Patient with chronically low BMI per chart review with current BMI 14 and reported 10 lb weight loss recently related to vomiting and poor po intake - TF were started, but patient tolerating reg diet with no emesis, no concerns for malabsorption soTF not indicated at this time. Will plan to remove NG tube today. NG [employer] SE[employer]ER NG [employer] SE[employer]ER NG [employer] SEWER NG [employer] SEWER * Assessment & Plan Note - Gita Duarte MD - 07/07/2022 4:09 PM CSTAssociated Problem(s): Nausea & vomiting Patient presenting with subacute N/V with limited ability to maintain consistent PO intake over course. 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 Malnutrition-related gastroparesis possible though considered less likely; possible eating disorder component given chronicityof malnutrition. - Thus far evaluation with unremarkable [...] remove NG tube and discharge home with anti- emetics, patient agreeable with plan. [employer] NG [employer] SE[employer]ER NG [employer] SEWER NG [employer] SEWER NG [employer] SE[employer]ER NG [employer]S SEWER NG [employer]S SEWER * Assessment & Plan Note - Grover Spaulding MD - 07/07/2022 4:09 PM [employer] Associated Problem(s): High serum vitamin B12 Hold supplementation [employer] * Assessment & Plan Note - Grover Spaulding MD - 07/07/2022 4:09 PM [employer] Associated Problem(s): Chest pain, unspecified type (Resolved 07/14/2022) Likely musculoskeletal in since it only happens after vomiting or gagging. NG [employer] NG [employer]S SEWER * Assessment & Plan Note - Grover Spaulding MD - 07/07/2022 4:08 PM [employer] Associated Problem(s): Acute dystonic reaction due to drugs (Resolved 07/08/2022) Likely due to heavy use of compazine [...] IV Benadryl prn dystonia - symptoms resolved [employer] * Plan of Care - Shelby Griggs RN - 07/07/2022 2:09 PM CST Per Medical Chart/Rounds/IDR: patient is not medically ready for discharge ADD: 07/09 Impression: patient is going for EGD today, 07/07, dispo will depend on findings, patient is very malnourished Plan & referrals made/in place: discharge to home when medically ready, likely with no additional needs Support following discharge: family Additional needs/information: n/a Problem: establish a safe plan for discharge Goal: implement a safe plan for discharge with family support and medical follow up Treasury Agent will continue to follow patient to establish a safe and comprehensive discharge plan DANI Dela Cruz, cloud software engineer For case management needs from 4:31 PM - 7:59 AM, please call the magnetometer operator at telephone number: [phone] For weekend/holiday needs from the hours of 8:00 AM to 4:30 PM, please call the weekend case loader operator at telephone number: [phone] [employer] * Plan of Care - Yessica Tineo LCSW - 07/07/2022 2:05 PM CST SW met with pt at bedside to discuss mental health resources. Pt minimally engaged in conversation but agreeable to receiving printed counseling resources. SW left resource packet on pt's tray table per pt request. SW remains available if additional psychosocial needs are indicated prior to d/c. CARYL Orozco, ZAFAR See [facility] care team for contact information. [employer] * Medical Student - Mary Kate Hillman - 07/07/2022 9:20 AM CST Daily Progress Note Division of Hospital Medicine Name: Isabel Churchill Today: July 07, 2022 : 2005 Age: 17 y.o. female Admit: 07/03/2022 Bed: [place] [id number] Subjective Chief complaint: nausea Interval History: Last night pt complained of itching around IV site, she was given IV Benadryl. Shortly afterwards, the RN found the pt inducing vomiting by putting her fingers down her throat, reporting that she felt something sitting in her chest. Pt was then administered IV Zofran and felt better. Pt has been NPO for EGD all morning. Reports she is feeling better today, likely because she has not been eating. Objective Medications: Scheduled: enoxaparin, 30 mg, subcutaneous, Daily-2100 ergocalciferol, 50,000 Units, oral, Weekly famotidine, 10 mg, intravenous, Q12H FEMRIN folic acid, 1 mg, oral, Daily lidocaine, 1 patch, transdermal, Daily multivitamin therapeutic, 1 tablet, oral, Daily pantoprazole, 40 mg, intravenous, Daily scopolamine, 1 patch, transdermal, Q72H sodium chloride 0.9%, 0.5-20 mL, intra-catheter, Q8H FERMIN [Held by Provider] thiamine, 100 mg, oral, Daily Infusions: PRN: acetaminophen calcium carbonate sodium chloride 0.9% diphenhydrAMINE LORazepam ondansetron ramelteon sodium chloride 0.9% Vitals: 24hr Min/Max: Temp Min: 36.3 ??C (97.3 ??F) Max: 37.3 ??C (99.2 ??F) Pulse Min: 103 Max: 113 BP Min: 99/73 Max: 114/82 Resp Min: 16 Max: 18 SpO2 Min: 98 % Max: 100 % Most Recent: Vitals: 07/07/22 0815 BP: 114/82 Pulse: 107 Resp: 16 Temp: 36.6 ??C (97.9 ??F) SpO2: 99% No intake or output data in the 24 hours ending 07/07/22 0921 Physical Exam Constitutional: NAD, underweight Eyes: PERRL, EOMI, anicteric ENT: NCAT, oropharynx normal, moist mucus membranes Lungs: Clear to auscultation in all lung infante, unlabored, trachea midline Cardiovascular: RRR, normal S1 and S2, no murmurs, no JVD GI: Soft, non-tender, non-distended, bowel sounds +, no organomegaly Skin: No new rashes, lesions or bruises Extremities: Normal without edema or cyanosis Lymph: No cervical, supraclavicular, axillary or inguinal adenopathy Neurologic: AOx4, CNII-XII intact, normal strength and sensation Psychiatric: Reserved, blunted affect I have reviewed the patient's vital signs. Lab/Diagnostic Review: Recent Results (from the past 36 hour(s)) Basic metabolic panel Collection Time: 07/06/22 3:39 AM Result Value Ref Range Sodium 136 135 - 145 mmol/L Potassium, pl 3.8 3.3 - 4.9 mmol/L Chloride 101 97 - 110 mmol/L CO2 28 22 - 32 mmol/L Anion gap 7 2 - 15 mmol/L BUN 6 (L) 8 - 25 mg/dL Creatinine 0.90 0.40 - 1.00 mg/dL Glucose 94 70 - 199 mg/dL Calcium 9.9 8.5 - 10.3 mg/dL eGFR Collection Time: 07/06/22 3:39 AM Result Value Ref Range eGFR >90 90 - 130 mL/min/1.73 m2 Protime-INR Collection Time: 07/06/22 10:03 PM Result Value Ref Range PT 13.5 9.2 - 13.5 sec INR 1.2 0.9 - 1.2 Basic metabolic panel Collection Time: 07/07/22 6:48 AM Result Value Ref Range Sodium 138 135 - 145 mmol/L Potassium, pl 4.0 3.3 - 4.9 mmol/L Chloride 98 97 - 110 mmol/L CO2 26 22 - 32 mmol/L Anion gap 14 2 - 15 mmol/L BUN 12 8 - 25 mg/dL Creatinine 0.92 0.40 - 1.00 mg/dL Glucose 92 70 - 199 mg/dL Calcium 9.6 8.5 - 10.3 mg/dL eGFR Collection Time: 07/07/22 6:48 AM Result Value Ref Range eGFR >90 90 - 130 mL/min/1.73 m2 I have reviewed the laboratory results. Imaging Results: MRI Brain W WO Contrast Narrative: EXAMINATION: Magnetic resonance imaging (MRI) of the brain and brainstem without and with contrast HISTORY: Persistent nausea and vomiting, blurry vision, TECHNIQUE: Multiplanar multi-weighted MRI of the brain and brainstem was performed without and with intravenous contrast using the general brain protocol. Contrast information: 8 mL Dotarem COMPARISON: CT head 07/04/2022 FINDINGS: The scalp and calvarium are normal. The superior sagittal sinus demonstrates normal venous flow. The corpus callosum is normal in shape and signal intensity. 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 The pituitary and sella are normal. The brainstem and craniocervical junction are unremarkable. Stepwise low-grade anterolisthesis of C2 on C3 and C3 on C4. Diffusion weighted images reveal no hyperintensities to suggest acute cerebral infarction. The susceptibility weighted sequences reveal no evidence of acute or chronic hemorrhage. The ventricles are normal in size and position without evidence of hydrocephalus . There are no areas of abnormal contrast enhancement. The paranasal sinuses are normal. The visualized portions of the mastoids are unremarkable. The orbits appear normal. Normal flow voids are demonstrated in the carotid arteries and basilar artery. 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 Otherwise, unremarkable MRI appearance of the brain without findings to suggest cause or consequence of patient's symptoms. Dictated by: Juvenal Salazar MD The radiology attending physician has personally reviewed this study, and had reviewed and/or edited this written report and agrees with it. Electronically signed by: Beatrice Silva M.D. EEG Extended EEG Report Patient Name: Isabel Churchill [facility] Medical Record Number (MRN): [id number] [facility]ly [facility] Record: No Soarian MRN Date of (): 2005 EEG Date: 07/04/2022 Ordering Provider: Shanique Bazan MD CC: Rita Lynn Start Time: 07/04/2022 2:49:55 PM End Time: 07/04/2022 3:56:57 PM Introduction: Ms. Churchill is a 17 y.o. female without significant past medical history who presented with dystonic movements in setting of intractable nausea and vomiting after ceasing cannabis use, concerning for seizures. EEG was performed to evaluate for epileptiform activity. This is a 32 channel EEG recording acquired on a [employer] EEG-1200 acquisition system. Scalp electrodes were placed according to the international 10-20 System. The analog EEG was filtered from 1-70 Hz and digitally sampled at 200 Hz. The record was then reformatted for review in bipolar and referential montages. EEG Description: There was moderate EMG and movement artifact during the recording. The awake background included a 9 Hz posterior dominant rhythm which attenuated with eye opening and activity. During drowsiness, identified by ocular signs and alpha attenuation, there was intermittent, diffuse, asynchronous theta activity admixed with 2-4 Hz polymorphic frontotemporal delta activity. As the record progressed, stage II sleep was identified by vertex waves, sleep spindles and K-complexes. Hyperventilation was not performed. Photic strobe stimulation elicited prominent driving. No photoparoxysmal response was elicited. There were no focal, lateralized or epileptiform abnormalities. There was a single event recorded occurring at 15:47 PM. The patient reported she had blureed vision, more prominent in the right eye. There were no EEG changes with this event. Interpretation: This is a normal awake, stage I, and stage II sleep extended EEG. The recorded event did not have EEG correlate. By signing this report, the attending Electroencephalographer certifies that he/she personally reviewed the electrodiagnostics study and has edited this report to fully conform with his/her intent. Signing Attending: Miguel Mitchell MD Assessment/Plan * Nausea & vomiting Assessment & Plan Patient presenting with subacute N/V with limited ability to maintain consistent PO intake over course. Pt previously experienced these symptoms in 2020, which resolved with famotidine. Thus far evaluation with unremarkable CMP/CBC, lipase 55, hs-trop <4 x 2, urinary hCG negative, UA clear, RVP negative, HIV neg, CXR clear, CT-AP without acute process, Utox + cannabinoids but otherwise negative. GI consult ddx includes marijuana hyperemesis syndrome, viral gasteroenteritis, functional n/v, structural disease such as eosinophilic esophagitis. - EGD planned for today - Cu, Pb level ordered - Jabier pediatric dosed - Trial IV ativan prn, scopolamine patch - Trial PPI - Avoid cannabis - Consider psych consult Acute dystonic reaction due to drugs Assessment & Plan Likely due to heavy use of compazine at home, plus got one dose of droperidol here and additional compazine. CT head unremarkable. EEG unremarkable. MRI head ordered due to concerns of blurry vision,results unremarkable. - avoid all dopaminergic medications - added compazine to allergy list w/ reaction of dystonia - neurology following - IV Benadryl prn dystonia High serum vitamin B12 Assessment & Plan Hold supplementation Vitamin D deficiency Assessment & Plan 25 vit D on admission - started 50,000 units ergocalciferol qweek, plan x8w and repeat level Severe malnutrition (CMS/HCC) (HCC) Assessment & Plan Patient with chronically low BMI per chart review with current BMI 14 and reported 10 lb weight loss recently related to vomiting and poor po intake - RD consult - ADAT, Ensure TIDAC - Calorie Count Chest pain, unspecified type Assessment & Plan - Constant of L upper chest/shoulder region - worse with palpation and arm movement - hs-trop/EKG unremarkable; suspect MSK in etiology - Trial lidocaine patch, tylenol - PT/OT Mary Kate Hillman M4 Cosigned by Grover Spaulding MD at 07/09/2022 4:55 PM [employer] NG [employer]S SEWER NG [employer]S SEWER * Plan of Care - Norman Torre - 07/06/2022 12:30 PM CST Goals: Clinical Goals for the Shift: Hydration, ambulation Summary: Patient had an episode of abdominal pain, vomiting, and sinus tachycardia. Denies SOB, on room air. Problem: Fluid Volume: Goal: Maintenance of adequate hydration will improve Outcome: Progressing Problem: Nutritional: Goal: Maintenance of adequate nutrition will improve Outcome: Progressing Problem: Safety: Goal: Will remain free from falls Outcome: Progressing Problem: Sensory: Goal: Pain level will decrease Outcome: Progressing Problem: Health Behavior: Goal: Understanding of discharge needs will improve Outcome: Progressing [employer] SEWER * Plan of Care - Shelby Griggs RN - 07/06/2022 12:05 PM CST Per Medical Chart/Rounds/IDR: patient is not medically ready for discharge ADD: 07/07 Plan & referrals made/in place: discharge to home, with no additional needs Support following discharge: family Transportation: family F/U Appt: pending Additional needs/information: n/a Patient's Identified Problem/Goal Problem: acute medical needs and anticipated discharge needs Goal: collaboration with patient/family and clinical team to identify needs and appropriate interventions in order to establish a safe discharge plan that retains patient within the continuum of care Patient and/or family agree with the plan for discharge. Treasury Agent will continue to follow and assist with discharge planning as needed. If any further discharge needs arise, please contact the covering case loader operator. DANI Dela Cruz, cloud software engineer For case management needs from 4:31 PM - 7:59 AM, please call the magnetometer operator at telephone number: [phone] For weekend/holiday needs from the hours of 8:00 AM to 4:30 PM, please call the weekend case loader operator at telephone number: [phone] NG [employer] SEWER * Plan of Care - Alfredo Martins RN - 07/06/2022 12:21 AM CST Goals: Problem: Fluid Volume: Goal: Maintenance of adequate hydration will improve Outcome: Progressing Problem: Nutritional: Goal: Maintenance of adequate nutrition will improve Outcome: Progressing Problem: Safety: Goal: Will remain free from falls Outcome: Progressing Problem: Sensory: Goal: Pain level will decrease Outcome: Progressing Problem: Health Behavior: Goal: Understanding of discharge needs will improve Outcome: Progressing Clinical Goals for the Shift: decrease nausea and vomiting, hydration, monitor vitals Summary: Pt in bed resting. Hs meds given. NG [employer]S SEWER * Consults, Subsequent - Maria Del Carmen Little MD - 07/05/2022 3:24 PM [employer]ER Neurology Consult Follow-Up Note Requesting Provider: Shanique Bazan MD, Hospitalist Reason for Consult: dystonia? Subjective: Interval history: - No acute events overnight, remains with significant nausea. - Dystonia has improved with discontinuation of anti-dopaminergics Assessment and Plan Ms. Churchill is a 17 y.o. female with no PMH who presents with 3 weeks of intractable nausea and vomiting after ceasing cannabis use. We were consulted for evaluation of dystonia that we suspected was secondary to te use of multiple anti-dopaminergic agents to try to control her nausea (q6h compazine eddy ppositories prior to admission, given droperidol here). She had improvement in her dystonia with stopping these agents. We recommended as part of her workup a rEEG that was normal and a brain MRI that incidentally revealed 3mm of bilateral inferior cerebellar ectopia that can be followed in the outpatient setting. Recommendations: # Dystonia Recommend discontinuing anti-dopaminergic medications including compazine May consider benadryl, ativan, or cogentin for management of dystonia The updated recommendations were discussed with the primary team. Please call the neurology consult phone at [phone] (senior) with questions A referral has been placed for follow-up with Neurology at the [facility]. Please provide their number in the discharge instructions: [phone] The Neurology Consult Service will sign off at this time. Please call the Neurology Consult Senior phone ([phone]) with questions, and specify that this consult was staffed with Consult Team B. Objective: Vitals: 24hr Min/Max: Temp Min: 36.4 ??C (97.5 ??F) Max: 37.1 ??C (98.8 ??F) Pulse Min: 80 Max: 131 BP Min: 124/82 Max: 133/102 Resp Min: 16 Max: 18 SpO2 Min: 99 % Max: 100 % Lab/Radiology/Diagnostic Review: Recent Labs Lab Units 07/03/22 1015 WBC K/cumm 3.4* HEMOGLOBIN g/dL 12.4 HEMATOCRIT % 37.3 PLATELETS K/cumm 217 Recent Labs Lab Units 07/04/22 0541 07/03/22 1023 07/03/22 1015 SODIUM mmol/L 140 -- 141 POTASSIUM PLASMA mmol/L 3.5 -- 4.0 CHLORIDE mmol/L 104 -- 103 CO2 mmol/L 28 -- 27 BUN SERUM mg/dL 4* -- 3* CREATININE mg/dL 0.72 -- 0.74 CREATININE POC mg/dL -- 0.7 -- GLUCOSE mg/dL 101 -- 106 CALCIUM mg/dL 9.3 -- 9.5 Recent Labs Lab Units 07/03/22 1015 ALK PHOS Units/L 48* BILIRUBIN TOTAL mg/dL 0.8 TOTAL PROTEIN g/dL 7.3 ALT Units/L 14 AST Units/L 23 Results for orders placed or performed during the hospital encounter of 07/03/22 MRI Brain W WO Contrast Narrative EXAMINATION: Magnetic resonance imaging (MRI) of the brain and brainstem without and with contrast HISTORY: Persistent nausea and vomiting, blurry vision, TECHNIQUE: Multiplanar multi-weighted MRI of the brain and brainstem was performed without and with intravenous contrast using the general brain protocol. Contrast information: 8 mL Dotarem COMPARISON: CT head 07/04/2022 FINDINGS: The scalp and calvarium are normal. The superior sagittal sinus demonstrates normal venous flow. The corpus callosum is normal in shape and signal intensity. 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 The pituitary and sella are normal. The brainstem and craniocervical junction are unremarkable. Stepwise low-grade anterolisthesis of C2 on C3 and C3 on C4. Diffusion weighted images reveal no hyperintensities to suggest acute cerebral infarction. The susceptibility weighted sequences reveal no evidence of acute or chronic hemorrhage. The ventricles are normal in size and position without evidence of hydrocephalus . There are no areas of abnormal contrast enhancement. The paranasal sinuses are normal. The visualized portions of the mastoids are unremarkable. The orbits appear normal. Normal flow voids are demonstrated in the carotid arteries and basilar artery. 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 Otherwise, unremarkable MRI appearance of the brain without findings to suggest cause or consequence of patient's symptoms. Dictated by: Juvenal Salazar MD The radiology attending physician has personally reviewed this study, and had reviewed and/or edited this written report and agrees with it. Electronically signed by: Beatrice Silva M.D. CT Head WO Contrast Narrative EXAMINATION: CT head without contrast HISTORY: Muscle spasm. TECHNIQUE: Noncontrast CT of the brain was performed with images acquired from skull base to vertex. COMPARISON: None available. FINDINGS: Topogram demonstrates no lytic lesions or fractures. There is no acute intracranial hemorrhage. Ventricles are of normal size and morphology. No mass effect or midline shift is present. The lema-white matter differentiation is normal. The visualized portions of the orbits are normal. The visualized portions of the mastoids are normal. The visualized portions of the paranasal sinuses are normal. No fractures are identified. Calcifications of the falx are noted. Impression No intracranial hemorrhage, mass effect or midline shift. Dictated by: Lamin Vargas M.D. The radiology attending physician has personally reviewed this study, and had reviewed and/or edited this written report and agrees with it. Electronically signed by: Olga Akers M.D. EEG Narrative Extended EEG Report Patient Name: Isabel Churchill [facility] Medical Record Number (MRN): [id number] Formerly [facility] Record: No [place] MRN Date of (): 2005 EEG Date: 07/04/2022 Ordering Provider: Shanique Bazan MD CC: Rita Lynn Start Time: 07/04/2022 2:49:55 PM End Time: 07/04/2022 3:56:57 PM Introduction: Ms. Churchill is a 17 y.o. female without significant past medical history who presented with dystonic movements in setting of intractable nausea and vomiting after ceasing cannabis use, concerning for seizures. EEG was performed to evaluate for epileptiform activity. This is a 32 channel EEG recording acquired on a [employer] EEG-1200 acquisition system. Scalp electrodes were placed according to the international 10-20 System. The analog EEG was filtered from 1-70 Hz and digitally sampled at 200 Hz. The record was then reformatted for review in bipolar and referential montages. EEG Description: There was moderate EMG and movement artifact during the recording. The awake background included a 9 Hz posterior dominant rhythm which attenuated with eye opening and activity. During drowsiness, identified by ocular signs and alpha attenuation, there was intermittent, diffuse, asynchronous theta activity admixed with 2-4 Hz polymorphic frontotemporal delta activity. As the record progressed, stage II sleep was identified by vertex waves, sleep spindles and K-complexes. Hyperventilation was not performed. Photic strobe stimulation elicited prominent driving. No photoparoxysmal response was elicited. There were no focal, lateralized or epileptiform abnormalities. There was a single event recorded occurring at 15:47 PM. The patient reported she had blureed vision, more prominent in the right eye. There were no EEG changes with this event. Interpretation: This is a normal awake, stage I, and stage II sleep extended EEG. The recorded event did not have EEG correlate. By signing this report, the attending Electroencephalographer certifies that he/she personally reviewed the electrodiagnostics study and has edited this report to fully conform with his/her intent. Signing Attending: Miguel Mitchell MD XR Chest Pa Lateral 2 Views Result Date: 07/03/2022 There are no relevant prior studies available for comparison. The lungs are clear without pneumonicconsolidation or pulmonary edema. There is no pleural effusion. There is no pneumothorax. The cardiomediastinal silhouette is within normal limits. Dictated by: Arlette Roslaes MD The radiology attending physician has personally reviewed this study, and had reviewed and/or edited this written report and agrees with it. Electronically signed by: Shanique Maxwell MD CT Head WO Contrast Result Date: 07/04/2022 No intracranial hemorrhage, mass effect or midline shift. Dictated by: Lamin Vargas M.D. The radiology attending physician has personally reviewed this study, and had reviewed and/or edited this written report and agrees with it. Electronically signed by: Olga Akers M.D. CT Abdomen Pelvis W Contrast Result Date: 07/03/[address] correlate for acute abdominal pain. Dictated by: Tanja Wood MD The radiology attending physician has personally reviewed this study, and had reviewed and/or edited this written report and agrees with it. Electronically signed by: Clemente Foster M.D. 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 Otherwise, unremarkable MRI appearance of the brain without findings to suggest cause or consequence of patient's symptoms. Dictated by: Juvenal Salazar MD The radiology attending physician has personally reviewed this study, and had reviewed and/or edited this written report and agrees with it. Electronically signed by: Oswald Floyd MD Neurology Resident, PGY-3 07/05/2022 3:24 PM Assessment and Plan at the top of the note. NG PARTS SEWER * Plan of Aren - Angelica Barnes RN - 07/05/2022 10:34 AM CST Goals: Clinical Goals for the Shift: decrease nausea and vomiting, hydration, monitor vitals Summary: Problem: Fluid Volume: Goal: Maintenance of adequate hydration will improve Outcome: Progressing Problem: Safety: Goal: Will remain free from falls Outcome: Progressing Problem: Sensory: Goal: Pain level will decrease Outcome: Progressing Problem: Health Behavior: Goal: Understanding of discharge needs will improve Outcome: Progressing NG PARTS SEWER * Assessment & Plan Note - Shanique Bazan MD - 07/05/2022 10:25 AM LINING [employer]S SEWER Associated Problem(s): Severe malnutrition (CMS/HCC) (HCC) Patient with chronically low BMI per chart review with current BMI 14 and reported 10 lb weight loss recently related to vomiting and poor po intake - RD consult - ADAT, Ensure TIDAC - Calorie Count NG PARTS SEWER * Assessment & Plan Note - Shanique Bazan MD - 07/05/2022 10:25 AM LINING [employer]S SEWER Associated Problem(s): Vitamin D deficiency 25 vit D on admission - started 50,000 units ergocalciferol qweek, plan x8w and repeat level NG PARTS SEWER * Assessment & Plan Note - Shanique Bazan MD - 07/05/2022 10:25 AM LINING [employer]S SEWER Associated Problem(s): High serum vitamin B12 Hold supplementation NG PARTS SEWER * Assessment & Plan Note - Shanique Bazan MD - 07/05/2022 10:22 AM LINING [employer]S SEWER Associated Problem(s): Acute dystonic reaction due to drugs (Resolved 07/08/2022) Likely due to heavy use of compazine at home, plus got one dose of droperidol here and additional compazine. CT head unremarkable. EEG unremarkable. - avoid all dopaminergic medications - added compazine to allergy list w/ reaction of dystonia - neurology following - MRI brain ordered due to concerns of blurred vision - IV Benadryl prn dystonia - symptoms improved today NG PARTS SEWER * Assessment & Plan Note - Shanique Bazan MD - 07/05/2022 10:22 AM LINING [employer]S SEWER Associated Problem(s): Facial spasm (Resolved 07/05/2022) Patient with onset of bilateral facial spasm over V3 regions, lasting ~1-2min. Ca, Mg, K wnl. limited concern for lesion as etiology given bilateral - Trial baclofen - checking Cu level NG PARTS SEWER * Assessment & Plan Note - Shanique Bazan MD - 07/05/2022 10:22 AM LINING [employer]S SEWER Associated Problem(s): Chest pain, unspecified type (Resolved 07/14/2022) - Constant of L upper chest/shoulder region - worse with palpation and arm movement - hs-trop/EKG unremarkable; suspect MSK in etiology - Trial lidocaine patch, tylenol - PT/OT NG PARTS SEWER * Assessment & Plan Note - Shanique Bazan MD - 07/05/2022 10:20 AM LINING [employer]S SEWER Associated Problem(s): Nausea & vomiting Patient presenting with subacute N/V with limited ability to maintain consistent PO intake over course. 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 Malnutrition-related gastroparesis possible though considered less likely; possible eating disorder component given chronicityof malnutrition. - Thus far evaluation with unremarkable CMP/CBC, lipase 55, hs-trop <4 x 2, urinary hCG negative, UA clear, RVP negative, HIV neg, CXR clear, CT-AP without acute process, Utox + cannabinoids but otherwise negative - Cu level ordered - Zofran pediatric dosed - Trial IV ativan prn, scopolamine patch - Trial PPI - Avoid cannabis - Consult GI NG PARTS SEWER NG PARTS SEWER NG PARTS SEWER * Subjective & Objective - Shanique Bazan MD - 07/05/2022 10:13 AM LINING [employer]S SEWER Daily Progress Note Division of [facility] Medicine Name: Isabel Churchill Today: July 05, 2022 : 2005 Age: 17 y.o. female Admit: 07/03/2022 Bed: [id number] Subjective Chief complaint: nausea Interval History: persistent nausea and retching since yesterday. Not relieved by Zofran. Now off compazine given likely acute dystonic reaction. No further muscle spasms today - responded well to IVBenadryl yesterday. Updated mom on phone at bedside this AM. Patient uncomfortable and still vomiting. She feels heavy in her chest with emesis but no marly abdominal pain. Objective Medications: Scheduled: enoxaparin, 30 mg, subcutaneous, Daily-2100 ergocalciferol, 50,000 Units, oral, Weekly folic acid, 1 mg, oral, Daily lidocaine, 1 patch, transdermal, Daily multivitamin therapeutic, 1 tablet, oral, Daily pantoprazole, 40 mg, intravenous, Daily scopolamine, 1 patch, transdermal, Q72H [Held by Provider] thiamine, 100 mg, oral, Daily Infusions: dextrose 5% and Lactated Ringer's, 75 mL/hr, Last Rate: 75 mL/hr (07/05/22 0446) PRN: acetaminophen baclofen calcium carbonate diphenhydrAMINE LORazepam ondansetron ramelteon Vitals: 24hr Min/Max: Temp Min: 36.4 ??C (97.5 ??F) Max: 37.1 ??C (98.8 ??F) Pulse Min: 65 Max: 131 BP Min: 101/64 Max: 131/96 Resp Min: 16 Max: 18 SpO2 Min: 99 % Max: 100 % Most Recent: Vitals: 07/05/22 0918 BP: 127/95 Pulse: 95 Resp: 18 Temp: 37.1 ??C (98.8 ??F) SpO2: 100% No intake or output data in the 24 hours ending 07/05/22 1013 Physical Exam GENERAL: appears uncomfortable, lying lateral decubitus in bed, actively retching and spitting intotrash can. thin HEENT: normocephalic, atraumatic, EOMI, PERRL, MMM PULM: breathing comfortably on room air ABD: soft, nondistended EXTR: WWP, no edema NEURO: alert, oriented to person, place, time and situation PSYCH: behavior and affect appropriate, cooperative with care Lab/Diagnostic Review: Recent Results (from the past 36 hour(s)) HIV 1/2 Antibody plus p24 Antigen Blood Collection Time: 07/04/22 5:41 AM Specimen: Blood Result Value Ref Range HIV 1/2 ab + p24 ag Nonreactive Nonreactive Basic metabolic panel Collection Time: 07/04/22 5:41 AM Result Value Ref Range Sodium 140 135 - 145 mmol/L Potassium, pl 3.5 3.3 - 4.9 mmol/L Chloride 104 97 - 110 mmol/L CO2 28 22 - 32 mmol/L Anion gap 8 2 - 15 mmol/L BUN 4 (L) 8 - 25 mg/dL Creatinine 0.72 0.40 - 1.00 mg/dL Glucose 101 70 - 199 mg/dL Calcium 9.3 8.5 - 10.3 mg/dL Phosphorus Collection Time: 07/04/22 5:41 AM Result Value Ref Range Phosphorus, pl 3.9 2.3 - 4.5 mg/dL Erythrocyte sedimentation rate Collection Time: 07/04/22 5:41 AM Result Value Ref Range Erythrocyte sedimentation rate 9 1 - 20 mm/hr Gliadin antibody, IgA Collection Time: 07/04/22 5:41 AM Result Value Ref Range Anti-gliadin, IgA 0.5 <=14.9 units/mL Magnesium Collection Time: 07/04/22 5:41 AM Result Value Ref Range Magnesium 1.9 1.4 - 2.5 mg/dL Tissue transglutaminase IgA (TGG-IgA Ab) Collection Time: 07/04/22 5:41 AM Result Value Ref Range TTG ab, IgA <0.5 <=14.9 units/mL eGFR Collection Time: 07/04/22 5:41 AM Result Value Ref Range eGFR >90 90 - 130 mL/min/1.73 m2 I have reviewed the laboratory results. Imaging Results: CT Head WO Contrast Narrative: EXAMINATION: CT head without contrast HISTORY: Muscle spasm. TECHNIQUE: Noncontrast CT of the brain was performed with images acquired from skull base to vertex. COMPARISON: None available. FINDINGS: Topogram demonstrates no lytic lesions or fractures. There is no acute intracranial hemorrhage. Ventricles are of normal size and morphology. No mass effect or midline shift is present. The lema-white matter differentiation is normal. The visualized portions of the orbits are normal. The visualized portions of the mastoids are normal. The visualized portions of the paranasal sinuses are normal. No fractures are identified. Calcifications of the falx are noted. Impression: No intracranial hemorrhage, mass effect or midline shift. Dictated by: Lamin Vargas M.D. The radiology attending physician has personally reviewed this study, and had reviewed and/or edited this written report and agrees with it. NG PARTS SEWER * Plan of Care - Alfredo Martins RN - 07/05/2022 2:20 AM CST Goals: Problem: Fluid Volume: Goal: Maintenance of adequate hydration will improve Outcome: Progressing Problem: Nutritional: Goal: Maintenance of adequate nutrition will improve Outcome: Progressing Problem: Safety: Goal: Will remain free from falls Outcome: Progressing Problem: Sensory: Goal: Pain level will decrease Outcome: Progressing Problem: Health Behavior: Goal: Understanding of discharge needs will improve Outcome: Progressing Clinical Goals for the Shift: hydration, monitor vitals and labs, access pain Summary: Pt in bed resting. Refused lovenox at hs. Pt has been dry heaving on and off all night. NG PARTS SEWER * Hospital Course - Gita Duarte MD - 07/04/2022 4:04 PM CST Nausea & vomiting Patient presenting with subacute N/V with limited ability to maintain consistent PO intake over past several weeks.HIV neg, unremarkable CMP/CBC, lipase 55, hs- trop <4 x 2, urinary hCG negative, UA clear, RVP negative, CXR clear, CT-AP without acute process, urine tox screen pos only for cannabinoids. Cu level was low, Pb level normal. EGD was normal, pathology was also normal. H.pylori neg. At this time, differential includes cannabis hyperemesis syndrome, cyclic vomiting syndrome, malnutrition-induced gastroparesis, functional n/v, bulimia nervosa. Pt smokes marijuana every day and was counseled on cessation, as well as its likely contribution to her nausea. Pt's nausea responded relatively well to Zofran throughout hospitalization, which was pediatrically dosed due to her young age and low BMI. NG was placed and tube feeds started on 07/11, pt tolerated well with no N/V. Psych was consulted to evaluate for eating disorder, psych did not think that pt has eating disorder, they have recommended SSRI for depression/anxiety but patient declined. Eventually discharged on schedule zof ran & scopolamine patch. Likely acute dystonic reaction Patient had been taking compazine suppositories prior to admission for nausea and also received droperidol x1 day of admission for nausea. She began having some facial twitching which progressed to unilateral body muscle dystonia. Dopaminergic medications for nausea discontinued. She was given prn IV benadryl. CT head, MRI head unremarkable. EEG, unremarkable. Vitamin D deficiency 25-vit D level 17. Patient started on once weekly 50,000 units ergocalciferol. Severe malnutrition Patient with chronically low BMI per chart review with current BMI 14 and reported 10 lb weight loss recently related to vomiting and poor po intake. RD consult, placed on calorie counts. Patient wasstarted on tube feeds through NG on 07/11. Patient was tolerating regular diet with no emesis, no concerns for malabsorption so TF not indicated at this time. NG tube was removed 07/13 and TF were stopped. Vision changes Patient reports intermittent blurry vision over both eyes over the past several days (not present during encounter). 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 Resolved on discharge. Sent ophtho referral on discharge. NG PARTS SEWER NG PARTS SEWER NG PARTS SEWER NG PARTS SEWER NG PARTS SEWER NG PARTS SEWER NG PARTS SEWER NG PARTS SEWER NG PARTS SEWER NG PARTS SEWER NG PARTS SEWER NG PARTS SEWER * Significant Event - Shanique Bazan MD - 07/04/2022 1:14 PM LINING PARTS SEWER Called to room by RN because patient had a few muscle spasm episodes today. This involved both her face and the left side of her chest wall and left arm. She was not altered but was very scared, tearful and in pain during episodes. RN captured video of episode. By the time I was in the room, this was resolving. Of note, she did receive droperidol x1 yesterday afternoon which can cause dystonia. Ordered CT head and EEG. Neurology consulted. Shanique Bazan MD Instructor in Medicine Division of [facility] Medicine [facility] NG PARTS SEWER * Assessment & Plan Note - Shanique Bazan MD - 07/04/2022 11:53 AM LINING PARTS SEWER Associated Problem(s): High serum vitamin B12 Hold supplementation NG PARTS SEWER * Assessment & Plan Note - Shanique Bazan MD - 07/04/2022 11:48 AM LINING [employer]S SEWER Associated Problem(s): Vitamin D deficiency 25 vit D on admission - started 50,000 units ergocalciferol qweek, plan x8w and repeat level NG PARTS SEWER * Subjective & Objective - Shanique Bazan MD - 07/04/2022 11:27 AM LINING PARTS SEWER Daily Progress Note Division of Hospital Medicine Name: Isabel Churchill Today: July 04, 2022 : 2005 Age: 17 y.o. female Admit: 07/03/2022 Bed: [id number] Subjective Chief complaint: vomiting, muscle twitching/spasm Interval History: No acute events overnight. Grandmother in room and mother on speakerphone during our interacton and assisted in answering questions. Patient still noting muscle spasms but they haveimproved a little since admission. She notes that she was having vomiting before but no diarrhea and in fact she really didn't have a bowel movement in past week prior to admission and rarely urinated . Her friend and her had both smoked weed together before this happened and friend reported abdominal pain afterwards so patient and family are concerned that the marijuana was contaminated leading to symptoms. She has lost about 10 pounds since illness began. Recently had her period and it was normal. No travel recently. She had been in usual state of health until this began very recently. No significant family history of major medical disease including no degenerative neurologic disease. Objective Medications: Scheduled: enoxaparin, 30 mg, subcutaneous, Daily-2100 ergocalciferol, 50,000 Units, oral, Weekly folic acid, 1 mg, oral, Daily lidocaine, 1 patch, transdermal, Daily multivitamin therapeutic, 1 tablet, oral, Daily pantoprazole, 40 mg, intravenous, Daily thiamine, 100 mg, oral, Daily Infusions: dextrose 5% and Lactated Ringer's, 75 mL/hr, Last Rate: 75 mL/hr (07/04/22 0217) PRN: acetaminophen baclofen prochlorperazine OR prochlorperazine ramelteon Vitals: 24hr Min/Max: Temp Min: 36.5 ??C (97.7 ??F) Max: 36.8 ??C (98.2 ??F) Pulse Min: 66 Max: 170 BP Min: 93/48 Max: 145/90 Resp Min: 16 Max: 25 SpO2 Min: 97 % Max: 100 % Most Recent: Vitals: 07/04/22 0952 BP: 107/75 Pulse: 104 Resp: 16 Temp: 36.5 ??C (97.7 ??F) SpO2: 100% Intake/Output Summary (Last 24 hours) at 07/04/2022 1127 Last data filed at 07/04/2022 0950 Gross per 24 hour Intake 1710 ml Output -- Net 1710 ml Physical Exam GENERAL: no acute distress, sitting up in bed, thin HEENT: normocephalic, atraumatic, EOMI, PERRL, MMM. Tongue appears normal without any lesions or discoloration CV: RRR, no MRG PULM: CTAB, breathing comfortably on room air ABD: soft, non-distended, non-tender to palpation : no suprapubic tenderness to palpation EXTR: wwp, no LE edema NEURO: alert, oriented to person, place, situation and time, following commands, decreased muscle bulk with normal tone, no muscle fasciculations noted SKIN: mild discoloration on dorsi of feet PSYCH: behavior and affect appropriate, cooperative with care Lab/Diagnostic Review: Recent Results (from the past 36 hour(s)) Calcium, ionized Collection Time: 07/03/22 9:42 AM Result Value Ref Range Calcium, Ionized 4.74 4.50 - 5.10 mg/dL CBC with auto differential Collection Time: 07/03/22 10:15 AM Result Value Ref Range WBC 3.4 (L) 3.8 - 9.9 K/cumm Hgb 12.4 11.9 - 15.5 g/dL Hct 37.3 35.6 - 45.5 % Plt 217 150 - 400 K/cumm MPV 10.6 9.1 - 12.3 fL RBC 4.53 3.90 - 5.20 M/cumm MCV 82.3 81.3 - 96.4 fL MCH 27.4 27.1 - 33.3 pg MCHC 33.2 32.3 - 35.7 g/dL RDW CV 13.3 11.1 - 14.9 % RDW SD 40.1 35.7 - 48.1 fL NRBC abs 0.00 0.00 - 0.01 K/cumm Comprehensive metabolic panel Collection Time: 07/03/22 10:15 AM Result Value Ref Range Sodium 141 135 - 145 mmol/L Potassium, pl 4.0 3.3 - 4.9 mmol/L Chloride 103 97 - 110 mmol/L CO2 27 22 - 32 mmol/L Anion gap 11 2 - 15 mmol/L BUN 3 (L) 8 - 25 mg/dL Creatinine 0.74 0.40 - 1.00 mg/dL Glucose 106 70 - 199 mg/dL Calcium 9.5 8.5 - 10.3 mg/dL Bilirubin, total 0.8 0.1 - 1.2 mg/dL Protein, pl 7.3 6.5 - 8.5 g/dL Albumin 4.5 3.5 - 5.0 g/dL Alk phos 48 (L) 70 - 260 Units/L ALT 14 7 - 45 Units/L AST 23 10 - 45 Units/L Lipase Collection Time: 07/03/22 10:15 AM Result Value Ref Range Lipase 55 10 - 99 Units/L Respiratory pathogen panel Nasopharyngeal Collection Time: 07/03/22 10:15 AM Specimen: Nasopharyngeal Result Value Ref Range Influenza [...] M. pneumoniae DNA Not Detected Not Detected Magnesium Collection Time: 07/03/22 10:15 AM Result Value Ref Range Magnesium 1.9 1.4 - 2.5 mg/dL Phosphorus Collection Time: 07/03/22 10:15 AM Result Value Ref Range Phosphorus, pl 3.1 2.3 - 4.5 mg/dL Troponin I high-sensitivity series (baseline, 2hr, 4hr, 6hr) Collection Time: 07/03/22 10:15 AM Result Value Ref Range Trop I hs <4 <=17 ng/L Differential, auto Collection Time: 07/03/22 10:15 AM Result Value Ref Range Neutrophil abs 1.9 1.7 - 6.5 K/cumm Imm gran abs 0.0 0.0 - 0.1 K/cumm Lymphocyte abs 1.2 0.8 - 3.3 K/cumm Monocyte abs 0.3 0.2 - 0.8 K/cumm Eosinophil abs 0.1 0.0 - 0.5 K/cumm Basophil abs 0.0 0.0 - 0.1 K/cumm Neutrophil pct 55.8 % Imm gran pct 0.3 % Lymphocyte pct 34.4 % Monocyte pct 7.4 % Eosinophil pct 1.5 % Basophil pct 0.6 % eGFR Collection Time: 07/03/22 10:15 AM Result Value Ref Range eGFR >90 90 - 130 mL/min/1.73 m2 Vitamin B12 Collection Time: 07/03/22 10:15 AM Result Value Ref Range Vitamin B12 1,748 (H) 230 - 1,250 pg/mL Iron profile w/ IBC Collection Time: 07/03/22 10:15 AM Result Value Ref Range Iron 76 35 - 145 mcg/dL TIBC 254 250 - 400 mcg/dL Transferrin saturation 30 20 - 50 % Ferritin Collection Time: 07/03/22 10:15 AM Result Value Ref Range Ferritin 170 (H) 13 - 150 ng/mL TSH reflex to free T4 Collection Time: 07/03/22 10:15 AM Result Value Ref Range TSH 0.90 0.30 - 4.20 mcIUnit/mL CRP (acute phase) Collection Time: 07/03/22 10:15 AM Result Value Ref Range CRP <0.5 <=10.0 mg/L IgA Collection Time: 07/03/22 10:15 AM Result Value Ref Range Immunoglobulin A 118.0 70.0 - 400.0 mg/dL Vitamin D 25 hydroxy Collection Time: 07/03/22 10:15 AM Result Value Ref Range Vitamin D 25-OH 17 (L) 30 - 80 ng/mL Urinalysis reflex to microscopic and culture Urine Collection Time: 07/03/22 10:16 AM Specimen: Urine Result Value Ref Range Color, ur Straw Yellow Clarity, ur Clear Clear Specific gravity, ur 1.014 1.003 - 1.030 pH, urine 7.5 Protein, ur ql Negative Negative Glucose, ur ql Negative Negative Ketones, ur Negative Negative Bilirubin, ur Negative Negative Blood, ur Negative Negative Urobilinogen, ur <2.0 <2.0 mg/dL Nitrite, ur Negative Negative Leukocyte esterase, ur Negative Negative UA reflex comment Reflex conditions for microscopic UA and culture not met. POCT creatinine Collection Time: 07/03/22 10:23 AM Result Value Ref Range Creatinine POC 0.7 0.4 - 1.0 mg/dL hCG, urine, qualitative Collection Time: 07/03/22 10:30 AM Result Value Ref Range HCG, ur Negative Negative Troponin I high-sensitivity 2-hour Collection Time: 07/03/22 12:03 PM Result Value Ref Range Trop I hs <4 <=17 ng/L Trop I hs delta 0 ng/L Trop I hs interp Insignificant HIV 1/2 Antibody plus p24 Antigen Blood Collection Time: 07/04/22 5:41 AM Specimen: Blood Result Value Ref Range HIV 1/2 ab + p24 ag Nonreactive Nonreactive Basic metabolic panel Collection Time: 07/04/22 5:41 AM Result Value Ref Range Sodium 140 135 - 145 mmol/L Potassium, pl 3.5 3.3 - 4.9 mmol/L Chloride 104 97 - 110 mmol/L CO2 28 22 - 32 mmol/L Anion gap 8 2 - 15 mmol/L BUN 4 (L) 8 - 25 mg/dL Creatinine 0.72 0.40 - 1.00 mg/dL Glucose 101 70 - 199 mg/dL Calcium 9.3 8.5 - 10.3 mg/dL Phosphorus Collection Time: 07/04/22 5:41 AM Result Value Ref Range Phosphorus, pl 3.9 2.3 - 4.5 mg/dL Erythrocyte sedimentation rate Collection Time: 07/04/22 5:41 AM Result Value Ref Range Erythrocyte sedimentation rate 9 1 - 20 mm/hr Gliadin antibody, IgA Collection Time: 07/04/22 5:41 AM Result Value Ref Range Anti-gliadin, IgA 0.5 <=14.9 units/mL Magnesium Collection Time: 07/04/22 5:41 AM Result Value Ref Range Magnesium 1.9 1.4 - 2.5 mg/dL Tissue transglutaminase IgA (TGG-IgA Ab) Collection Time: 07/04/22 5:41 AM Result Value Ref Range TTG ab, IgA <0.5 <=14.9 units/mL eGFR Collection Time: 07/04/22 5:41 AM Result Value Ref Range eGFR >90 90 - 130 mL/min/1.73 m2 I have reviewed the laboratory results. Imaging Results: XR Chest Pa Lateral 2 Views Narrative: EXAMINATION: XR CHEST PA LATERAL 2 VIEWS Impression: There are no relevant prior studies available for comparison. The lungs are clear without pneumonic consolidation or pulmonary edema. There is no pleural effusion. There is no pneumothorax. The cardiomediastinal silhouette is within normal limits. Dictated by: Arlette Rosales MD The radiology attending physician has personally reviewed this study, and had reviewed and/or edited this written report and agrees with it. Electronically signed by: Shanique Maxwell MD CT Abdomen Pelvis W Contrast Narrative: EXAMINATION: Computed tomography of the abdomen and pelvis with intravenous contrast HISTORY: Abdominal pain TECHNIQUE: Transaxial computed tomographic images of the abdomen and pelvis were obtained with intravenous contrast according to the standard protocol after the uneventful administration of 90 mL Opti-Ray 350 intravenous contrast. COMPARISON: None FINDINGS: The lung bases are clear. Imaged heart is normal in size without pericardial effusion. The liver is normal in size without hepatic lesion or biliary ductal dilation. The gallbladder, adrenal glands, spleen, and pancreas are normal. The kidneys enhance symmetrically without hydronephrosis. The urinary bladder is normal. The uterus is present. No suspicious adnexal lesion. The bowel is normal course and caliber without evidence of obstruction. Abdominal aorta is normal in caliber. No suspicious abdominal or pelvic lymphadenopathy. No free fluid within the abdomen or pelvis. No pneumoperitoneum. No suspicious osseous lesions. Impression: No CT correlate for acute abdominal pain. Dictated by: Tanja Wood MD The radiology attending physician has personally reviewed this study, and had reviewed and/or edited this written report and agrees with it. Electronically signed by: Clemente Foster M.D. ECG 12 lead Ish Espinal MD 07/03/2022 8:25 AM ECG 12 lead Date/Time: 07/03/2022 8:25 AM Performed by: Ish Espinal MD Authorized by: Yayo Patterson MD Rate: ECG rate: 97 ECG rate assessment: normal Rhythm: Rhythm: sinus rhythm Ectopy: Ectopy: none QRS: QRS axis: Normal QRS intervals: Normal Conduction: Conduction: normal ST segments: ST segments: Normal T waves: T waves: normal Previous ECG: Previous ECG: Unavailable Interpretation: Interpretation: No acute injury pattern Recommended Follow-up: Recommended follow up: further workup in the ED [facility] [employer] [facility] [employer] * Plan of Care - Angelica Barnes RN - 07/04/2022 11:14 AM CST Goals: Clinical Goals for the Shift: hydration, monitor vitals and labs, access pain Summary: Problem: Fluid Volume: Goal: Maintenance of adequate hydration will improve Outcome: Progressing Problem: Nutritional: Goal: Maintenance of adequate nutrition will improve Outcome: Progressing Problem: Safety: Goal: Will remain free from falls Outcome: Progressing Problem: Sensory: Goal: Pain level will decrease Outcome: Progressing [employer] * Assessment & Plan Note - Asad Marquis MD - 07/03/2022 9:52 PM [employer] Associated Problem(s): Chest pain, unspecified type (Resolved 07/14/2022) - Constant of L upper chest/shoulder region - worse with palpation and arm movement - hs-trop/EKG unremarkable; suspect MSK in etiology - Trial lidocaine patch, tylenol - PT/OT [employer] * Assessment & Plan Note - Shanique Bazan MD - 07/03/2022 9:50 PM [employer] Associated Problem(s): Facial spasm (Resolved 07/05/2022) Patient with onset of bilateral facial spasm over V3 regions, lasting ~1-2min. Ca, Mg, K wnl. limited concern for lesion as etiology given bilateral - Trial baclofen - checking Cu level [employer] [employer] [employer] * Assessment & Plan Note - Shanique Bazan MD - 07/03/2022 9:44 PM [employer] Associated Problem(s): Abdominal pain (Resolved 07/05/2022) - Patient presenting with epigastric pain in [...] ongoing symptomatology with unremarkable workup - CTM [facility] [employer] [facility] [employer] [employer] [employer] [employer] * Assessment & Plan Note - Asad Marquis MD - 07/03/2022 9:44 PM [employer] Associated Problem(s): Vision changes - Patient reports intermittent blurry vision over both eyes over the past several days (not presentduring encounter) - Unclear etiology - possible orthostatic; given history concern for 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; limited concern for optic neuritis given bilateral involvement - CTM, consider head imaging and ophthalmology consult if recurrent/ongoing during admission [employer] [employer] [employer] * Assessment & Plan Note - Shanique Bazan MD - 07/03/2022 9:40 PM [employer] Associated Problem(s): Severe malnutrition (CMS/HCC) (HCC) Patient with chronically low BMI per chart review with current BMI 14 and reported 10 lb weight loss recently related to vomiting and poor po intake - RD consult - ADAT, Ensure TIDAC - Calorie Count [employer] [employer] * Assessment & Plan Note - Shanique Bazan MD - 07/03/2022 9:32 PM [employer] Associated Problem(s): Nausea & vomiting Patient presenting with subacute N/V with limited ability to maintain consistent PO intake over course. Unclear etiology at this time, though concern for cannabis-induced hyperemesis (daily use untilinitiation of symptoms); ?GERD, course too long for [...] PPI - Avoid cannabis - Check Utox [employer] [facility] [employer] [employer] [employer] [employer] [facility] * ED Re-evaluation Note - Salena Cormier MD - 07/03/2022 7:19 PM [facility] ED Re-evaluation TRANSITION OF CARE: I, Salena Cormier MD, am taking signout from Dr Degroot (Resident). I have reviewed all pertinent vital signs, allergies, and history available in the chart. Summary: 17 y.o. female seen today for chest pain (x3wks) which is worsening today. Vision intermittently going black recently (painless). Weakness. Fatigue. Inability to tolerate PO. BMI of 13. Loss of 20lbs in 2 weeks. Pending: transport (bed assigned) Dispo: admit ED Course as of 07/03/221918 Time: 07/03 918 Comment: 17 yo fem presenting with multiple complaints, including intermittent klarissa painless vision loss for the last 3 days with no prodrome or identified pattern, left-sided chest pain (10/10) that is nonexertional, jaw pain and facial tightening, severe abd pain, nausea, and vomiting. Her neurologic exam is completely normal, lungs CTA, ht sounds normal, abd soft/nontender. Pt is very thin with BMI < 14. DDx is broad given multiple sxs, but constellation also raises concerns for anorexia and malnutrition with potential for psychogenic component. It would be very unusual for an 17 yo to have ACS/PA, though is possible. Also consider biliary colic, pancreatitis, colitis, inflammatory bowel disease. Will check labs, get CT abdomen/pelvis, hydrate, assess for metabolic abnormality due to poor PO intake, check HCG to r/o . By: Yayo Patterson MD Time: 07/03 928 Comment: Reviewed records from 06/18 at [facility], weight was listed as 46 kg at that time, now down to 40 kg. She tested + for fluA at that time. By: Yayo Patterson MD Time: 07/03 115 Comment: CT IMPRESSION: No CT correlate for acute abdominal pain. 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 [facility] [employer] [facility] * ED Procedure Note - Ish Espinal MD - 07/03/2022 8:25 AM [employer] Associated Order(s): ECG 12 lead Procedure ECG 12 lead Date/Time: 07/03/2022 8:25 AM Performed by: Ish Espinal MD Authorized by: Yayo Patterson MD Rate: ECG rate: 97 ECG rate assessment: normal Rhythm: Rhythm: sinus rhythm Ectopy: Ectopy: none QRS: QRS axis: Normal QRS intervals: Normal Conduction: Conduction: normal ST segments: ST segments: Normal T waves: T waves: normal Previous ECG: Previous ECG: Unavailable Interpretation: Interpretation: No acute injury pattern Recommended Follow-up: Recommended follow up: further workup in the ED Ish Espinal MD 07/03/22 0825 [facility] [employer] documented in this encounter Plan of Treatment Not on file documented as of this encounter Procedures Procedure Name Priority Date/Time Associated Diagnosis Comments EGFR Timed 07/13/2022 9:32 AM [facility] COMPREHENSIVE METABOLIC PANEL Timed 9:32 AM [employer] EGFR Timed 07/12/2022 9:20 PM [employer] PHOSPHORUS Timed 07/12/2022 9:20 PM [employer] MAGNESIUM Timed 07/12/2022 9:20 PM [employer] COMPREHENSIVE METABOLIC PANEL Timed 9:20 PM [employer] EGFR Timed 07/12/2022 8:38 AM [employer] COMPREHENSIVE METABOLIC PANEL Timed 8:38 AM [employer] EGFR Timed 07/11/2022 10:54 PM [employer] COMPREHENSIVE METABOLIC PANEL Timed 10:54 PM [employer] XR ABDOMEN AP 1 VIEW ED Urgent/IP Urgent 07/11/2022 3:28 PM [employer] XR ABDOMEN AP 1 VIEW ED Urgent/IP Urgent 07/11/2022 11:25 AM [employer] [facility] EGFR Routine 07/11/2022 5:24 AM [employer] BASIC METABOLIC PANEL Routine 07/11/2022 5:24 AM [employer] [facility] EGFR Routine 07/10/2022 3:22 AM [employer] BASIC METABOLIC PANEL Routine 07/10/2022 3:22 AM [employer] XR CHEST 1 VIEW ED Urgent/IP Urgent 07/09/2022 2:00 PM [employer] [facility] ECG 12-LEAD Routine 07/09/2022 12:33 PM [employer] TROPONIN I HIGH-SENSITIVITY STAT 06/21 11:26 AM [facility] [facility] EGFR Routine 07/09/2022 5:21 AM [employer] BASIC METABOLIC PANEL Routine 07/09/2022 5:21 AM [employer] [facility] EGFR Routine 07/08/2022 6:23 AM [employer] BASIC METABOLIC PANEL Routine 07/08/2022 6:23 AM [employer] [facility] SURGICAL PATHOLOGY Routine 07/07/2022 11:35 AM [employer] Nausea and vomiting, unspecified vomiting type EGD 07/07/2022 11:25 AM [employer] [facility] ESOPHAGOGASTRODUODENOSCOPY BIOPSY 07/07/2022 11:22 AM [employer] Nausea and vomiting, unspecified vomiting type EGFR Routine 07/07/2022 6:48 AM [employer] LEAD, BLOOD Routine 07/07/2022 6:48 AM [employer] BASIC METABOLIC PANEL Routine 07/07/2022 6:48 AM [employer] [facility] PROTIME-INR Routine 07/06/2022 10:03 PM [employer] EGFR Routine 07/06/2022 3:39 AM [employer] [facility] COPPER, SERUM Routine 07/06/2022 3:39 AM [employer] BASIC METABOLIC PANEL Routine 07/06/2022 3:39 AM [employer] [facility] MRI BRAIN W WO CONTRAST IP Routine 07/05/19 1:38 PM [employer] [facility] EEG Routine 07/04/2022 4:[address] HEAD WO CONTRAST IP Routine 07/04/2022 1:56 PM [employer] HC GLIADIN ANTIBODY EACH IMMUNOGLOBULIN CLASS Timed 07/04/2022 5:41 AM [employer] EGFR Routine 07/04/2022 5:41 AM [employer] [facility] HIV 1/2 ANTIBODY PLUS P24 ANTIGEN Routine 07/04/2022 5:41 AM [employer] GLIADIN ANTIBODY, IGA Timed 07/04/2022 5:41 AM [employer] TISSUE TRANSGLUTAMINASE, IGA Timed 5:41 AM [employer] ERYTHROCYTE SEDIMENTATION RATE Timed 0 07/04/2022 5:41 AM [employer] PHOSPHORUS Routine 07/04/2022 5:41 AM [employer] MAGNESIUM Routine 07/04/2022 5:41 AM [employer] [facility] LEAD, BLOOD Routine 07/04/2022 5:41 AM [employer] BASIC METABOLIC PANEL Routine 07/04/2022 5:41 AM [employer] XR CHEST PA LATERAL 2 VIEWS ED 06/20 1:46 PM [employer] TROPONIN I HIGH-SENSITIVITY 2-HOUR Timed 07/03/2022 12:[address] ABDOMEN PELVIS W CONTRAST ED 11:30 AM [employer] [facility] DRUGS OF ABUSE SCREEN, URINE WITH REFLEX CONFIRMATION STAT 07/03/2022 10:30 AM [employer] [facility] HCG, URINE, QUALITATIVE STAT 07/03/19 10:30 AM [employer] POCT CREATININE - DEVICE Routine 023 10:23 AM [employer] [facility] URINALYSIS AND REFLEX TO MICROSCOPIC AND CULTURE STAT 07/03/2022 10:16 AM [employer] TROPONIN I HIGH-SENSITIVITY SERIES (BASELINE, 2HR, 4HR, 6HR) STAT 07/03/2022 10:15 AM [employer] EGFR STAT 07/03/2022 10:15 AM [employer] DIFFERENTIAL AUTO STAT 07/03/2022 10:15 AM [employer] [facility] THYROID FUNCTION CASCADE STAT 023 10:15 AM [facility] [facility] IRON PROFILE W/ IBC STAT 07/03/2022 10:15 AM [employer] [facility] RESPIRATORY PATHOGEN PANEL Routine 07/03 10:15 AM [employer] CBC WITH AUTO DIFFERENTIAL STAT 07/03 10:15 AM [employer] VITAMIN D 25 HYDROXY STAT 07/03/2022 10:15 AM [employer] [facility] CRP (ACUTE PHASE) STAT 07/03/2022 10:15 AM [employer] [facility] VITAMIN B1 Routine 07/03/2022 10:15 AM [employer] [facility] PHOSPHORUS Routine 07/03/2022 10:15 AM [employer] MAGNESIUM STAT 07/03/2022 10:15 AM [employer] LIPASE STAT 07/03/2022 10:15 AM [employer] IGA STAT 07/03/2022 10:15 AM [employer] FERRITIN STAT 07/03/2022 10:15 AM [employer] [facility] VITAMIN B12 STAT 07/03/2022 10:15 AM [employer] COMPREHENSIVE METABOLIC PANEL STAT 10:15 AM [employer] [facility] CALCIUM, IONIZED Routine 07/03/2022 9:42 AM [employer] [facility] ECG 12-LEAD STAT 07/03/2022 8:25 AM [employer] documented in this encounter Results * eGFR (07/13/2022 9:32 AM [employer]) eGFR >90 90 - 130 mL/min/1. 73 m2 DES [facility] Comment: Interpretive Data Reference Interval Normal ?>/= [...] of Race in Diagnosing Kidney Disease, JASN 2020). The CKD-EPI equation should not be used for patients with unstable renal function and has not been validated in children and those over 70. Current interpretive data was last reviewed 2021. Blood 07/13/2022 9:32 AM [employer] [facility] 07/13/2022 9:56 AM [employer] [facility] us Grover Spaulding MD LAB BLOOD ORDERABLES Final Resul t [facility] Department [place] [address] * (ABNORMAL) Comprehensive metabolic panel (07/13/2022 9:32 AM [employer]) Sodium 140 135 - 145 mmol/L [facility] Potassium, pl 4.4 3.3 - 4.9 mmol/L [facility] Chloride 101 97 - 110 mmol/L [facility] CO2 29 22 - 32 mmol/L [facility] Anion gap 10 2 - 15 mmol/L [facility] BUN 11 8 - 25 mg/dL [facility] Creatinine 0.87 0.40 - 1.00 mg/dL [facility] Glucose 94 70 - 199 mg/dL [facility] Comment: Interpretive Data Fasting glucose >/= 126 [...] classification and Diagnosis of Diabetes Diabetes Care 202; 46: S19-S40. Current interpretive data was last revised 2022. Calcium 9.2 8.5 - 10.3 mg/dL [facility] Bilirubin, total 0.5 0.1 - 1.2 mg/dL [facility] Protein, pl 6.4(L) 6.5 - 8.5 g/dL [facility] Albumin 4.0 3.5 - 5.0 g/dL [facility] Alk phos 43(L) 70 - 260 Units/L [facility] ALT 12 7 - 45 Units/L [facility] AST 25 10 - 45 Units/L [facility] Blood 07/13/2022 9:32 AM [employer] 07/13/2022 9:56 AM [employer] us Grover Spaulding MD LAB BLOOD ORDERABLES Final Resul t [facility] [place] [address] * Phosphorus (07/12/2022 9:20 PM [employer]) Pathologist [facility] Phosphorus, pl 3.5 2.3 - 4.5 mg/dL [facility] Blood 07/12/2022 9:20 PM [employer] 07/12/2022 9:59 PM [employer] Gita Duarte MD LAB BLOOD ORDERABLES Final Resul t Performing Organization Address City/[facility] de Phone Number [facility] Department [place] [address] * Magnesium (07/12/2022 9:20 PM [employer]) [facility] Magnesium 2.0 1.4 - 2.5 mg/dL [facility] Blood 07/12/2022 9:20 PM [employer] 07/12/2022 9:59 PM [employer] Gita Duarte MD LAB BLOOD ORDERABLES Final Resul t Performing Organization Address [facility] de Phone Number [facility] Department [place] [address] * eGFR (07/12/2022 9:20 PM [employer]) Pathologist [facility] eGFR >90 90 - 130 mL/min/1. 73 m2 [facility] Comment: Interpretive Data Reference Interval Normal ?>/= [...] of Race in Diagnosing Kidney Disease, JASN 2020). The CKD-EPI equation should not be used for patients with unstable renal function and has not been validated in children and those over 70. Current interpretive data was last reviewed 2021. Blood 07/12/2022 9:20 PM [employer] 07/12/2022 9:59 PM [employer] us Grover Spaulding MD LAB BLOOD ORDERABLES Final Resul t [facility] [place] [address] * (ABNORMAL) Comprehensive metabolic panel (07/12/2022 9:20 PM [employer]) Pathologist [facility] Sodium 138 135 - 145 mmol/L [facility] Potassium, pl 4.1 3.3 - 4.9 mmol/L [facility] Chloride 104 97 - 110 mmol/L [facility] CO2 28 22 - 32 mmol/L [facility] Anion gap 6 2 - 15 mmol/L [facility] BUN 10 8 - 25 mg/dL [facility] Creatinine 0.90 0.40 - 1.00 mg/dL [facility] Glucose 101 70 - 199 mg/dL [facility] Comment: Interpretive Data Fasting glucose >/= 126 [...] classification and Diagnosis of Diabetes Diabetes Care 202; 46: S19-S40. Current interpretive data was last revised 2022. Calcium 8.9 8.5 - 10.3 mg/dL [facility] Bilirubin, total 0.6 0.1 - 1.2 mg/dL [facility] Protein, pl 6.2(L) 6.5 - 8.5 g/dL [facility] Albumin 3.9 3.5 - 5.0 g/dL [facility] Alk phos 47(L) 70 - 260 Units/L [facility] ALT 16 7 - 45 Units/L [facility] AST 24 10 - 45 Units/L [facility] Blood 07/12/2022 9:20 PM [employer] 07/12/2022 9:59 PM [employer] us Grover Spaulding MD LAB BLOOD ORDERABLES Final Resul t [facility] [place] [address] * (ABNORMAL) eGFR (07/12/2022 8:38 AM [employer]) eGFR 83(L) 90 - 130 mL/min/1. 73 m2 [facility] Comment: Interpretive Data Reference Interval Normal ?>/= [...] Inclusion of Race in Diagnosing Kidney Disease, KELLISN 2020). The CKD-EPI equation should not be used for patients with unstable renal function and has not been validated in children and those over 70. Current interpretive data was last reviewed 2021. Blood 07/12/2022 8:38 AM [employer] 07/12/2022 10:43 AM [employer] us Grover Spaulding MD LAB BLOOD ORDERABLES Final Resul t [facility] [place] [address] * (ABNORMAL) Comprehensive metabolic panel (07/12/2022 8:38 AM [employer]) Sodium 139 135 - 145 mmol/L [facility] Potassium, pl 4.0 3.3 - 4.9 mmol/L [facility] Chloride 100 97 - 110 mmol/L [facility] CO2 29 22 - 32 mmol/L [facility] Anion gap 10 2 - 15 mmol/L [facility] BUN 12 8 - 25 mg/dL [facility] Creatinine 1.01(H) 0.40 - 1.00 mg/dL [facility] Glucose 92 70 - 199 mg/dL [facility] Comment: Interpretive Data Fasting glucose >/= 126 [...] classification and Diagnosis of Diabetes Diabetes Care 202; 46: S19-S40. Current interpretive data was last revised 2022. Calcium 9.1 8.5 - 10.3 mg/dL [facility] Bilirubin, total 1.0 0.1 - 1.2 mg/dL [facility] Protein, pl 6.3(L) 6.5 - 8.5 g/dL [facility] Albumin 3.9 3.5 - 5.0 g/dL [facility] Alk phos 38(L) 70 - 260 Units/L [facility] ALT 10 7 - 45 Units/L [facility] AST 19 10 - 45 Units/L [facility] Blood 07/12/2022 8:38 AM [employer] 07/12/2022 10:43 AM [employer] us Grover Spaulding MD LAB BLOOD ORDERABLES Final Resul t [facility] [place] [address] * eGFR (07/11/2022 10:54 PM [employer]) eGFR >90 90 - 130 mL/min/1. 73 m2 [facility] Comment: Interpretive Data Reference Interval Normal ?>/= [...] interpretive data was last reviewed 2021. Blood 07/11/2022 10:5 4 PM [employer] 07/11/2022 11:22 PM [employer] us Grover Spaulding MD LAB BLOOD ORDERABLES Final Resul t [facility] [place] [address] * (ABNORMAL) Comprehensive metabolic panel (07/11/2022 10:54 PM [employer]) Sodium 139 135 - 145 mmol/L [facility] Potassium, pl 3.6 3.3 - 4.9 mmol/L [facility] Chloride 101 97 - 110 mmol/L [facility] CO2 30 22 - 32 mmol/L [facility] Anion gap 8 2 - 15 mmol/L [facility] BUN 10 8 - 25 mg/dL [facility] Creatinine 0.93 0.40 - 1.00 mg/dL [facility] Glucose 108 70 - 199 mg/dL [facility] Comment: Interpretive Data Fasting glucose >/= 126 [...] interpretive data was last revised 2022. Calcium 9.0 8.5 - 10.3 mg/dL [facility] Bilirubin, total 1.2 0.1 - 1.2 mg/dL [facility] Protein, pl 6.4(L) 6.5 - 8.5 g/dL [facility] Albumin 4.0 3.5 - 5.0 g/dL [facility] Alk phos 38(L) 70 - 260 Units/L [facility] ALT 10 7 - 45 Units/L [facility] AST 22 10 - 45 Units/L [facility] Blood 07/11/2022 10:5 4 PM [employer] 07/11/2022 11:22 PM [employer] us Grover Spaulding MD LAB BLOOD ORDERABLES Final Resul t DES [facility] [place] [address] * XR Abdomen Ap 1 Vw (07/11/2022 3:28 PM [employer]) Anatomical Region Laterality Modality Body, Abdomen N/A Computed Radiogr aphy 07/12/2022 10:0 1 AM [employer] Impressions 07/12/2022 11:43 AM [employer] Two single view radiograph of the abdomen are submitted for evaluation. Exam 1: 07/11/2022 at 12:23 PM A gastric tube projects over the esophagus, with tip at the gastroesophageal junction and side-port in the distal esophagus. ??The bowel gas pattern is within normal limits. Exam 2: 07/11/2022 at 2:37 PM There is been interval advancement of nasogastric tube with tip in the gastric body and side-port at the level of the fundus. ??The bowel gas pattern is within normal limits. ??Lung bases are clear Dictated by: Susy Ramirez M.D. The radiology attending physician has personally reviewed this study, and had reviewed and/or edited this written report and agrees with it. Electronically signed by: Miguel Juan M.D. Narrative 07/12/2022 11:43 AM [employer] EXAMINATION: Two abdomen one view radiographs. HISTORY: Nasogastric tube placement verification COMPARISON: CT abdomen pelvis dated 07/03/2022 Procedure Note Miguel Juan MD - 07/12/2022 EXAMINATION: Two abdomen one view radiographs. HISTORY: Nasogastric tube placement verification COMPARISON: CT abdomen pelvis dated 07/03/2022 IMPRESSION: Two single view radiograph of the abdomen are submitted for evaluation. Exam 1: 07/11/2022 at 12:23 PM A gastric tube projects over the esophagus, with tip at the gastroesophageal junction and side-port in the distal esophagus. The bowel gas pattern is within normal limits. Exam 2: 07/11/2022 at 2:37 PM There is been interval advancement of nasogastric tube with tip in the gastric body and side-port at the level of the fundus. The bowel gas pattern is within normal limits. Lung bases are clear Dictated by: Susy Ramirez M.D. The radiology attending physician has personally reviewed this study, and had reviewed and/or edited this written report and agrees with it. Electronically signed by: Miguel Juan M.D. Grover Spaulding MD IMG XR PROCEDURES Final Result * XR Abdomen Ap 1 Vw (07/11/2022 11:25 AM [employer]) Anatomical Region Laterality Modality Body, Abdomen N/A Computed Radiogr aphy 07/12/2022 10:0 1 AM [employer] Impressions 07/12/2022 11:43 AM [employer] Two single view radiograph of the abdomen are submitted for evaluation. Exam 1: 07/11/2022 at 12:23 PM A gastric tube projects over the esophagus, with tip at the gastroesophageal junction and side-port in the distal esophagus. ??The bowel gas pattern is within normal limits. Exam 2: 07/11/2022 at 2:37 PM There is been interval advancement of nasogastric tube with tip in the gastric body and side-port at the level of the fundus. ??The bowel gas pattern is within normal limits. ??Lung bases are clear Dictated by: Susy Ramirez M.D. The radiology attending physician has personally reviewed this study, and had reviewed and/or edited this written report and agrees with it. Electronically signed by: Miguel Juan M.D. Narrative 07/12/2022 11:43 AM [employer] EXAMINATION: Two abdomen one view radiographs. HISTORY: Nasogastric tube placement verification COMPARISON: CT abdomen pelvis dated 07/03/2022 Procedure Note Miguel Juan MD - 07/12/2022 EXAMINATION: Two abdomen one view radiographs. HISTORY: Nasogastric tube placement verification COMPARISON: CT abdomen pelvis dated 07/03/2022 IMPRESSION: Two single view radiograph of the abdomen are submitted for evaluation. Exam 1: 07/11/2022 at 12:23 PM A gastric tube projects over the esophagus, with tip at the gastroesophageal junction and side-port in the distal esophagus. The bowel gas pattern is within normal limits. Exam 2: 07/11/2022 at 2:37 PM There is been interval advancement of nasogastric tube with tip in the gastric body and side-port at the level of the fundus. The bowel gas pattern is within normal limits. Lung bases are clear Dictated by: Susy Ramirez M.D. The radiology attending physician has personally reviewed this study, and had reviewed and/or edited this written report and agrees with it. Electronically signed by: Miguel Juan M.D. us Grover Spaulding MD IMG XR PROCEDURES Final Result * eGFR (07/11/2022 5:24 AM [employer]) eGFR >90 90 - 130 mL/min/1. 73 m2 [facility] Comment: Interpretive Data Reference Interval Normal ?>/= [...] interpretive data was last reviewed 2021. Blood 07/11/2022 5:24 AM [employer] 07/11/2022 5:54 AM [employer] Shanique Bazan MD LAB BLOOD ORDERABLES Anjana l Result Performing Organization Address City/[facility]/ZIP Co de Phone Number [facility] Department [place] [address] * Basic metabolic panel (07/11/2022 5:24 AM [employer]) Pathologist [facility] Sodium 140 135 - 145 mmol/L [facility] Potassium, pl 3.7 3.3 - 4.9 mmol/L [facility] Chloride 102 97 - 110 mmol/L [facility] CO2 28 22 - 32 mmol/L [facility] Anion gap 10 2 - 15 mmol/L [facility] BUN 10 8 - 25 mg/dL [facility] Creatinine 0.92 0.40 - 1.00 mg/dL [facility] Glucose 96 70 - 199 mg/dL [facility] Comment: Interpretive Data Fasting glucose >/= 126 [...] classification and Diagnosis of Diabetes Diabetes Care 202; 46: S19-S40. Current interpretive data was last revised 2022. Calcium 9.5 8.5 - 10.3 mg/dL [facility] Blood 07/11/2022 5:24 AM [employer] 07/11/2022 5:54 AM [employer] Shanique Bazan MD LAB BLOOD ORDERABLES Anjana l Result Performing Organization Address [facility]/ZIP Co de Phone Number [facility] [place] [address] * (ABNORMAL) eGFR (07/10/2022 3:22 AM [employer]) Pathologist [facility] eGFR 84(L) 90 - 130 mL/min/1. 73 m2 [facility] Comment: Interpretive Data Reference Interval Normal ?>/= [...] of Race in Diagnosing Kidney Disease, JASN 2020). The CKD-EPI equation should not be used for patients with unstable renal function and has not been validated in children and those over 70. Current interpretive data was last reviewed 2021. Blood 07/10/2022 3:22 AM [employer] 07/10/2022 4:33 AM [employer] us Shanique Bazan MD LAB BLOOD ORDERABLES Anjana andersen Result [facility] Department [place] [address] * Basic metabolic panel (07/10/2022 3:22 AM [employer]) Sodium 140 135 - 145 mmol/L [facility] Potassium, pl 3.9 3.3 - 4.9 mmol/L [facility] Chloride 102 97 - 110 mmol/L [facility] CO2 31 22 - 32 mmol/L [facility] Anion gap 7 2 - 15 mmol/L [facility] BUN 11 8 - 25 mg/dL [facility] Creatinine 1.00 0.40 - 1.00 mg/dL [facility] Glucose 92 70 - 199 mg/dL [facility] Comment: Interpretive Data Fasting glucose >/= 126 [...] interpretive data was last revised 2022. Calcium 9.6 8.5 - 10.3 mg/dL [facility] Blood 07/10/2022 3:22 AM [employer] 07/10/2022 4:33 AM [employer] Shanique Bazan MD LAB BLOOD ORDERABLES Anjana andersen Result [facility] [place] [address] * XR Chest 1 View (07/09/2022 2:00 PM [employer]) Anatomical Region Laterality Modality Body, Chest N/A Computed Radiogr aphy 07/09/2022 2:34 PM [employer] Impressions 07/09/2022 5:03 PM [employer] The current study is compared with the prior radiograph dated 07/03/2022. ??The lungs are clear without pulmonary consolidation, pleural effusion, or pneumothorax. ??The cardiomediastinal silhouette is unchanged. Dictated by: Triston Sierra MD The radiology attending physician has personally reviewed this study, and had reviewed and/or edited this written report and agrees with it. Electronically signed by: Elizabeth Delvalle M.D. Narrative 07/09/2022 5:03 PM [employer] EXAMINATION: 1 view chest radiograph Procedure Note Elizabeth Delvalle MD - 07/09/2022 EXAMINATION: 1 view chest radiograph IMPRESSION: The current study is compared with the prior radiograph dated 07/03/2022. The lungs are clear without pulmonary consolidation, pleural effusion, or pneumothorax. The cardiomediastinal silhouette is unchanged. Dictated by: Triston Sierra MD The radiology attending physician has personally reviewed this study, and had reviewed and/or edited this written report and agrees with it. Electronically signed by: Elizabeth Delvalle M.D. Grover Spaulding MD IMG XR PROCEDURES Final Result * ECG 12 lead (07/09/2022 12:33 PM [employer]) [facility] Ventricular Rate EKG/Min 80 BPM [facility] Atrial Rate 80 BPM [facility] KS-Interval (MSEC) 166 ms [facility] QRS-Interval (MSEC) 74 ms [facility] QT-Interval (MSEC) 378 ms [facility] QTc 435 ms [facility] P Max 73 degrees [facility] R Max 76 degrees [facility] T Max 61 degrees [facility] Diagnosis Normal sinus rhythm Anteroseptal infarct , age undetermined Abnormal ECG No previous ECGs available Confirmed by HUGO UP M.D ([id number]) on 07/12/2022 9:59:49 AM [facility] 07/09/2022 12:3 3 PM [employer] 07/12/2022 9:59 AM [employer] Grover Spaulding MD ECG ORDERABLES Final Result [facility] * Troponin I high-sensitivity (07/09/2022 11:26 AM [employer]) [facility] Trop I hs <4 <=17 ng/L [facility] Comment: Interpretive Data For further hscTnI resources including the diagnostic algorithm and an aid in interpretation, copy and paste this link: [email or web address] Current Interpretive Data last revised 2019. Blood 07/09/2022 11:2 6 AM [employer] 07/09/2022 12:37 PM [employer] us Grover Spaulding MD LAB BLOOD ORDERABLES Final Resul t Performing Organization Address [facility] de Phone Number [facility] [place] [address] * eGFR (07/09/2022 5:21 AM [employer]) eGFR >90 90 - 130 mL/min/1. 73 m2 [facility] Comment: Interpretive Data Reference Interval Normal ?>/= [...] of Race in Diagnosing Kidney Disease, JASN 2020). The CKD-EPI equation should not be used for patients with unstable renal function and has not been validated in children and those over 70. Current interpretive data was last reviewed 2021. Blood 07/09/2022 5:21 AM [employer] 07/09/2022 6:21 AM [employer] us Shanique Bazan MD LAB BLOOD ORDERABLES Anjana l Result Performing Organization Address [facility]/State/ZIP Co de Phone Number [facility] [place] [address] * Basic metabolic panel (07/09/2022 5:21 AM [employer]) Pathologist [facility] Sodium 136 135 - 145 mmol/L [facility] Potassium, pl 3.7 3.3 - 4.9 mmol/L [facility] Chloride 101 97 - 110 mmol/L [facility] CO2 28 22 - 32 mmol/L [facility] Anion gap 7 2 - 15 mmol/L [facility] BUN 13 8 - 25 mg/dL [facility] Creatinine 0.91 0.40 - 1.00 mg/dL [facility] Glucose 92 70 - 199 mg/dL [facility] Comment: Interpretive Data Fasting glucose >/= 126 [...] classification and Diagnosis of Diabetes Diabetes Care 202; 46: S19-S40. Current interpretive data was last revised 2022. Calcium 9.2 8.5 - 10.3 mg/dL [facility] Blood 07/09/2022 5:21 AM [employer] 07/09/2022 6:21 AM [employer] Shanique Bazan MD LAB BLOOD ORDERABLES Anjana andersen Result [facility] [place] [address] * eGFR (07/08/2022 6:23 AM [employer]) [facility] eGFR >90 90 - 130 mL/min/1. 73 m2 [facility] Comment: Interpretive Data Reference Interval Normal ?>/= [...] of Race in Diagnosing Kidney Disease, JASN 2020). The CKD-EPI equation should not be used for patients with unstable renal function and has not been validated in children and those over 70. Current interpretive data was last reviewed 2021. Blood 07/08/2022 6:23 AM [employer] 07/08/2022 7:35 AM [employer] us Shanique Bazan MD LAB BLOOD ORDERABLES Anjana andersen Result [facility] [place] [address] * Basic metabolic panel (07/08/2022 6:23 AM [employer]) Pathologist [facility] Sodium 138 135 - 145 mmol/L [facility] Potassium, pl 4.1 3.3 - 4.9 mmol/L [facility] Chloride 100 97 - 110 mmol/L [facility] CO2 26 22 - 32 mmol/L [facility] Anion gap 12 2 - 15 mmol/L [facility] BUN 13 8 - 25 mg/dL [facility] Creatinine 0.93 0.40 - 1.00 mg/dL [facility] Glucose 90 70 - 199 mg/dL [facility] Comment: Interpretive Data Fasting glucose >/= 126 [...] classification and Diagnosis of Diabetes Diabetes Care 202; 46: S19-S40. Current interpretive data was last revised 2022. Calcium 9.6 8.5 - 10.3 mg/dL [facility] Blood 07/08/2022 6:23 AM [employer] 07/08/2022 7:20 AM [employer] Shanique Bazan MD LAB BLOOD ORDERABLES Anjana andersen Result [facility] [place] [address] * Surgical pathology (07/07/2022 11:35 AM [employer]) Tissue (Duodenum, Biopsy) 07/07/2022 11:35 AM [employer] Tissue (Gastric/Stomach biopsy) 07/07/2022 11:37 AM [employer] Tissue (Esophageal biopsy) 07/07/2022 11:39 AM [employer] Narrative PATHOLOGY [facility] - 07/08/2022 7:57 AM [employer] EPIC results best viewed via link to PDF [facility] [place] [address] Note to Patients: This report may contain a detailed description of human tissue sent by a health care provider to the laboratory for pathologic evaluation. The content of this report is essential for diagnosis and may provide important critical findings. This information may be unfamiliar to patients to review without a medical professional present. It is advised that the patient review this report in the presence of a health care provider who can answer questions and explain the details. SURGICAL PATHOLOGY REPORT FINAL Patient Name: ?? ISABEL CHURCHILL Gender: ??F : ??2005 (Age: 17) Address: ??[address], [place], [place] ??[address] Hospital #: ??[id number] Taken:07/07/2022 Received:07/07/2022 Reported: 07/08/2022 Patient Type: [facility] Inpatient ?? Service: Hospitalist Location: [place] [address] Physician(s): ??Oswald Solano M.D. Diagnosis: A. ??Duodenum, biopsy: ? - Duodenal mucosa, no diagnostic abnormalities are identified ? - No intraepithelial lymphocytosis or villous atrophy noted ?? B. ??Stomach, biopsy: ? - Antral and oxyntic mucosa, no diagnostic abnormalities identified ? - Negative for intestinal metaplasia or dysplasia ? - No Helicobacter pylori like organisms are identified on H&E ?? C. ??Esophagus, biopsy: ? - Squamous mucosa, no diagnostic abnormalities are identified ?? pona/07/08/2022 07:57 By this signature, I attest that the above diagnosis is based upon my personal examination of the slides(and/or other material indicated in the diagnosis). Shi Mallory M.D. Report Electronically Reviewed and Signed Out By ??Shi Mallory M.D. 07/08/2022 07:57:13 Microscopic Description and Comment: Microscopic examination substantiates the above cited diagnosis. History: The patient is an 17-year-old woman presenting for nausea and vomiting, unspecified vomiting type. ??Operative procedure: Upper endoscopy with biopsy. Specimen(s) Received: A: Cold biopsies duodenum B: Gastric biopsies C: Cold biopsies esophagus Gross Description: Received in three formalin jars labeled with the patient's identifiers. A. ??Labeled cold biopsies duodenum and consists of multiple frazier-red fragment(s) of soft tissue measuring 0.9 x 0.7 x 0.1 cm in aggregate. ?? Labeled A1. Jar 0. B. ??Labeled gastric biopsies and consists of three frazier-pink fragment(s) of soft tissue measuring 0.3-0.6 cm each in greatest dimension. ?? Labeled B1. Jar 0. C. ??Labeled cold biopsies esophagus and consists of multiple white-frazier fragment(s) of soft tissue measuring 0.9 x 0.5 x 0.1 cm in aggregate. ?? Labeled C1. Jar 0. ?? sxst/07/07/2022 16:26 PA(s): Gretta Casarez By this signature, I attest that the above diagnosis is based upon my personal examination of the slides(and/or other material). Addenda/Procedures The performance characteristics of some immunohistochemical stains, fluorescence in-situ hybridization tests and immunophenotyping by flow cytometry cited in this report (if any) were determined by the Surgical Pathology and Flow Cytometry Departments at [facility] as part of an ongoing environmental quality analyst program and in compliance with federally mandated regulations drawn from the Clinical Laboratory Improvement Act of 1988 (CLIA '88). ??Some of these tests rely on the use of analyte specific reagents and are subject to specific labeling requirements by the US Food and Drug Administration. ??Such diagnostic tests may only be performed in a facility that is certified by the Department of Health and Human Services as a high complexity laboratory under CLIA '88. ??The FDA has determined that such clearance or approval is not necessary. ??This test is used for clinical purposes. ??It should not be regarded as investigational or for research. ??Nevertheless, federal rules concerning the medical use of analyte specific reagents require that the following disclaimer be attached to the report: This test was developed and its performance characteristics determined by the Surgical Pathology and Flow Cytometry Departments of [facility]. ??It has not been cleared or approved by the U. S. Food and Drug Administration. IMAGES AND SCANNED DOCUMENTS, IF INCLUDED, ONLY VIEWABLE IN PDF VERSION OF REPORT Brittnee Babb MD LAB PATHOLOGY ORDERAB LES Final Result PATHOLOGY [facility] 3rd Floor [place], [place] [phone] * EGD (07/07/2022 11:25 AM [employer]) Anatomical Region Laterality Modality Other Narrative Procedure Note Brittnee Babb MD - 07/07/2022 11:25 AM [facility]ST [facility] Patient Name: Isabel Churchill Procedure Date: 07/07/2022 11:25 AM Date of : 2005 Admit Type: Inpatient Age: 17 Gender: Female Attending MD: Brittnee Babb M.D. [facility] 9 Note Status: Finalized Procedure: Upper GI endoscopy Indications: Epigastric abdominal pain, Anorexia, Nausea with vomiting Referring MD: Tay Faria M.D., Rita Lynn M.D., Grover Spaulding M.D. Providers: Brittnee Babb M.D. Medicines: Monitored Anesthesia Care Complications: No immediate complications. Estimated Blood Loss: Estimated blood loss: none. Procedure: Pre-Anesthesia Assessment: - Prior to the procedure, a History and Physicalwas performed, and patient medications, allergies and sensitivities were reviewed. The patient'stolerance of previous anesthesia was reviewed. - The risks and benefits of the procedure and the sedation options and risks were discussed with the patient. All questions were answered and informed consent was obtained. - Patient identification and proposed procedurewere verified prior to the procedure by the physician,the nurse and the anesthesiologist. The procedure was verified in the procedure room. - ASA Grade Assessment: II - A patient with mild systemic disease. - Monitored anesthesia care under the supervisionof a HEALTHCARE EDUCATOR was determined to be medically necessary forthis procedure based on review of the patient's medical history, medications, and prior anesthesiahistory. The benefits, risks, and alternatives to theprocedure and sedation were discussed and informed consentwas obtained. The scope was passed under direct vision. The [id number] endoscope was introduced through the mouth, and advanced to the second partof duodenum. The upper GI endoscopy was accomplished without difficulty. The patient tolerated the procedure well. Findings: The examined esophagus was normal. No evidence of esophagitis orother mucosal abnormality. Biopsies were taken with a cold forceps for histology. Verification of patient identification for the specimenwas done. The entire examined stomach was normal. No ulcers or other mucosal abnormalities. Biopsies were taken with a cold forceps forhistology. The duodenal bulb and second portion of the duodenum were normal. Impression: - Normal esophagus. Biopsied. - Normal stomach. Biopsied. - Normal duodenal bulb and second portion of the duodenum. Recommendation: - [facility] - Advance diet as tolerated today and per recommendations from primary team. - Await pathology results. - Remainder of care per GI consult service. - In the unusual situation that you developabdominal, bleeding or other significant problems in the days following this procedure please call [phone]. After hours and evenings please call [phone] speak to the GI fellow juvenile probation officer. Please tell thefellow that Dr. Babbdid your procedure and that you were instructed to have the fellow call me or the physician covering for me to discuss the managementof your condition. If you have an urgent problem,please go to the nearest emergency room and have the ER doctor call my office during the day or the GIfellow after hours and weekends to arrange admission or transfer to our facility. Please bring this report with you if you go to the emergency room. Brittnee Babb M.D. 07/07/2022 11:49:36 AM Number of Addenda: 0 Note Initiated On: 07/07/2022 11:25 AM Recognized by the [employer] for promoting quality in endoscopy Brittnee Babb MD ENDOSCOPY PROCEDURES Final Result * eGFR (07/07/2022 6:48 AM [employer]) eGFR >90 90 - 130 mL/min/1. 73 m2 [facility] Comment: Interpretive Data Reference Interval Normal ?>/= [...] of Race in Diagnosing Kidney Disease, JASN 2020). The CKD-EPI equation should not be used for patients with unstable renal function and has not been validated in children and those over 70. Current interpretive data was last reviewed 2021. Blood 07/07/2022 6:48 AM [employer] 07/07/2022 7:07 AM [employer]ER Shanique Bazan MD LAB BLOOD ORDERABLES Anjana l Result [facility] [place] [address] * Basic metabolic panel (07/07/2022 6:48 AM LIN[employer]) Sodium 138 135 - 145 mmol/L [facility] Potassium, pl 4.0 3.3 - 4.9 mmol/L [facility] Chloride 98 97 - 110 mmol/L [facility] CO2 26 22 - 32 mmol/L [facility] Anion gap 14 2 - 15 mmol/L [facility] BUN 12 8 - 25 mg/dL [facility] Creatinine 0.92 0.40 - 1.00 mg/dL [facility] Glucose 92 70 - 199 mg/dL [facility] Comment: Interpretive Data Fasting glucose >/= 126 [...] classification and Diagnosis of Diabetes Diabetes Care 202; 46: S19-S40. Current interpretive data was last revised 2022. Calcium 9.6 8.5 - 10.3 mg/dL [facility] Blood 07/07/2022 6:48 AM [employer] 07/07/2022 7:07 AM [employer] Shanique Bazan MD LAB BLOOD ORDERABLES Anjana andersen Result [facility] [place] [address] * Lead, blood (07/07/2022 6:48 AM [employer]) Pathologist [facility] Lead <1.0 <5.0 mcg/dL [facility] Comment: ADDITIONAL INFORMATION Testing performed by Inductively Coupled Plasma-Mass Spectrometry (ICP-MS). This test was developed and its performance characteristics determined by [facility] in a manner consistent with CLIA requirements. This test has not been cleared or approved by the U.S. Food and Drug Administration. Interpretive Data Testing performed by: [facility], [place] [address]. Blood 07/07/2022 6:48 AM [employer] 07/07/2022 7:17 AM [employer]ER Grover Spaulding MD LAB BLOOD ORDERABLES Final Resul t Performing Organization Address [facility] de Phone Number [facility] [place] [address] * Protime-INR (07/06/2022 10:03 PM [employer]) PT 13.5 9.2 - 13.5 sec [facility] INR 1.2 0.9 - 1.2 [facility] Comment: Interpretive data Oral anticoagulant therapeutic ranges: Venous thromboembolism prophylaxis or treatment: 2.0-3.0 CARDIOLOGY Standard range: 2.0-3.0 High-intensity range: 2.5-3.5 Refer to indication-specific guidelines for appropriate target ranges for prosthetic heart valve replacement. Current interpretive data was last revised on 2019. Blood 07/06/2022 10:0 3 PM [employer] 07/06/2022 11:40 PM [employer] Grover Spaulding MD LAB BLOOD ORDERABLES Final Resul t Performing Organization Address [facility] de Phone Number [facility] [place] [address] * eGFR (07/06/2022 3:39 AM [employer]) eGFR >90 90 - 130 mL/min/1. 73 m2 [facility] Comment: Interpretive Data Reference Interval Normal ?>/= [...] of Race in Diagnosing Kidney Disease, JASN 2020). The CKD-EPI equation should not be used for patients with unstable renal function and has not been validated in children and those over 70. Current interpretive data was last reviewed 2021. Blood 07/06/2022 3:39 AM [employer] 07/06/2022 4:22 AM [employer]ER Shanique Bazan MD LAB BLOOD ORDERABLES Anjana andersen Result [facility] [place] [address] * (ABNORMAL) Basic metabolic panel (07/06/2022 3:39 AM [employer]) Pathologist [facility] Sodium 136 135 - 145 mmol/L [facility] Potassium, pl 3.8 3.3 - 4.9 mmol/L [facility] Chloride 101 97 - 110 mmol/L [facility] CO2 28 22 - 32 mmol/L [facility] Anion gap 7 2 - 15 mmol/L [facility] BUN 6(L) 8 - 25 mg/dL [facility] Creatinine 0.90 0.40 - 1.00 mg/dL [facility] Glucose 94 70 - 199 mg/dL [facility] Comment: Interpretive Data Fasting glucose >/= 126 [...] classification and Diagnosis of Diabetes Diabetes Care 202; 46: S19-S40. Current interpretive data was last revised 2022. Calcium 9.9 8.5 - 10.3 mg/dL [facility] Blood 07/06/2022 3:39 AM [employer] 07/06/2022 4:22 AM [employer] Shanique Bazan MD LAB BLOOD ORDERABLES Anjana l Result Performing Organization Address [facility] de Phone Number [facility] [place] [address] * (ABNORMAL) Copper, serum (07/06/2022 3:39 AM LINING [employer] SE[employer]ER) [facility] Copper 70(L) 77 - 206 mcg/dL [facility] Comment: ADDITIONAL INFORMATION This test was developed and its performance characteristics determined by [facility] in a manner consistent with CLIA requirements. This test has not been cleared or approved by the U.S. Food and Drug Administration. Test Performed by: [facility] [place] [address] Senior Electronics Design Engineer: Juan Villagran M.D. Ph.D.; CLIA# [id number] Blood 07/06/2022 3:39 AM [employer] 07/06/2022 4:15 AM [employer] Shanique Bazan MD LAB BLOOD ORDERABLES Anjana l Result Performing Organization Address [facility] de Phone Number 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 ??Otherwise, unremarkable MRI appearance of the brain without findings to suggest cause or consequence of patient's symptoms. Dictated by: Juvenal Salazar MD The radiology attending physician has personally reviewed this study, and had reviewed and/or edited this written report and agrees with it. Electronically signed by: Beatrice Silva M.D. Narrative 07/05/2022 2:11 PM [employer] EXAMINATION: Magnetic resonance imaging (MRI) of the brain and brainstem without and with contrast HISTORY: Persistent nausea and vomiting, blurry vision, TECHNIQUE: Multiplanar multi-weighted MRI of the brain and brainstem was performed without and with intravenous contrast using the general brain protocol. Contrast information: 8 mL Dotarem COMPARISON: CT head 07/04/2022 FINDINGS: The scalp and calvarium are normal. ?? The superior sagittal sinus demonstrates normal venous flow. ??The corpus callosum is normal in shape and signal intensity. 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 ??The pituitary and sella are normal. ??The brainstem and craniocervical junction are unremarkable. ??Stepwise low-grade anterolisthesis of C2 on C3 and C3 on C4. Diffusion weighted images reveal no hyperintensities to suggest acute cerebral infarction. ??The susceptibility weighted sequences reveal no evidence of acute or chronic hemorrhage. ??The ventricles are normal in size and position without evidence of hydrocephalus . There are no areas of abnormal contrast enhancement. The paranasal sinuses are normal. ??The visualized portions of the mastoids are unremarkable. ??The orbits appear normal. ??Normal flow voids are demonstrated in the carotid arteries and basilar artery. Procedure Note Beatrice Segura MD - 07/05/2022 EXAMINATION: Magnetic resonance imaging (MRI) of the brain and brainstem without and with contrast HISTORY: Persistent nausea and vomiting, blurry vision, TECHNIQUE: Multiplanar multi-weighted MRI of the brain and brainstem was performed without and with intravenous contrast using the general brain protocol. Contrast information: 8 mL Dotarem COMPARISON: CT head 07/04/2022 FINDINGS: The scalp and calvarium are normal. The superior sagittal sinus demonstrates normal venous flow. The corpus callosum is normal in shape and signal intensity. 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 The pituitary and sella are normal. The brainstem and craniocervical junction are unremarkable. Stepwise low-grade anterolisthesis of C2 on C3 and C3 on C4. Diffusion weighted images reveal no hyperintensities to suggest acute cerebral infarction. The susceptibility weighted sequences reveal no evidence of acute or chronic hemorrhage. The ventricles are normal in size and position without evidence of hydrocephalus . There are no areas of abnormal contrast enhancement. The paranasal sinuses are normal. The visualized portions of the mastoids are unremarkable. The orbits appear normal. Normal flow voids are demonstrated in the carotid arteries and basilar artery. 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 Otherwise, unremarkable MRI appearance of the brain without findings to suggest cause or consequence of patient's symptoms. Dictated by: Juvenal Salazar MD The radiology attending physician has personally reviewed this study, and had reviewed and/or edited this written report and agrees with it. Electronically signed by: Beatrice Silva M.D. Shanique Bazan MD IMG MRI PROCEDURES Final Result * EEG (07/04/2022 4:17 PM [employer]) Anatomical Region Laterality Modality EEG Narrative 07/05/2022 12:20 PM [employer] Extended EEG Report Patient Name: Isabel Churchill [facility] Medical Record Number (MRN): [id number] Formerly [facility] Record: No Soarian MRN Date of (): 2005 EEG Date: 07/04/2022 Ordering Provider: Shanique Bazan MD CC: PatRita kwon Start Time: 07/04/2022 2:49:55 PM ? End Time: ??07/04/2022 3:56:57 PM Introduction: Ms. Churchill is a 17 y.o. female without significant past medical history who presented with dystonic movements in setting of intractable nausea and vomiting after ceasing cannabis use, concerning for seizures. EEG was performed to evaluate for epileptiform activity. This is a 32 channel EEG recording acquired on a [employer] EEG-1200 acquisition system. Scalp electrodes were placed according to the international 10-20 System. The analog EEG was filtered from 1-70 Hz and digitally sampled at 200 Hz. The record was then reformatted for review in bipolar and referential montages. EEG Description: There was moderate EMG and movement artifact during the recording. The awake background included a 9 Hz posterior dominant rhythm which attenuated with eye opening and activity. During drowsiness, identified by ocular signs and alpha attenuation, there was intermittent, diffuse, asynchronous theta activity admixed with 2-4 Hz polymorphic frontotemporal delta activity. As the record progressed, stage II sleep was identified by vertex waves, sleep spindles and K-complexes. Hyperventilation was not performed. Photic strobe stimulation elicited prominent driving. No photoparoxysmal response was elicited. There were no focal, lateralized or epileptiform abnormalities. There was a single event recorded occurring at 15:47 PM. The patient reported she had blureed vision, more prominent in the right eye. There were no EEG changes with this event. Interpretation: This is a normal awake, stage I, and stage II sleep extended EEG. The recorded event did not have EEG correlate. By signing this report, the attending Electroencephalographer certifies that he/she personally reviewed the electrodiagnostics study and has edited this report to fully conform with his/her intent. Signing Attending: Miguel Mitchell MD Shanique Bazan MD NEUROLOGY ORDERABLES Anjana l Result * CT Head WO Contrast (07/04/2022 1:56 PM [employer]) Anatomical Region Laterality Modality Head and Neck N/A Computed Tomogra phy 07/04/2022 2:00 PM [employer] Impressions 07/04/2022 3:47 PM [employer] No intracranial hemorrhage, mass effect or midline shift. Dictated by: Lamin Vargas M.D. The radiology attending physician has personally reviewed this study, and had reviewed and/or edited this written report and agrees with it. Electronically signed by: Olga Akers M.D. Narrative 07/04/2022 3:47 PM [employer] EXAMINATION: CT head without contrast HISTORY: Muscle spasm. TECHNIQUE: Noncontrast CT of the brain was performed with images acquired from skull base to vertex. COMPARISON: None available. FINDINGS: Topogram demonstrates no lytic lesions or fractures. There is no acute intracranial hemorrhage. Ventricles are of normal size and morphology. No mass effect or midline shift is present. The lema-white matter differentiation is normal. The visualized portions of the orbits are normal. The visualized portions of the mastoids are normal. The visualized portions of the paranasal sinuses are normal. No fractures are identified. ??Calcifications of the falx are noted. Procedure Note Olga Akers MD - 07/04/2022 EXAMINATION: CT head without contrast HISTORY: Muscle spasm. TECHNIQUE: Noncontrast CT of the brain was performed with images acquired from skull base to vertex. COMPARISON: None available. FINDINGS: Topogram demonstrates no lytic lesions or fractures. There is no acute intracranial hemorrhage. Ventricles are of normal size and morphology. No mass effect or midline shift is present. The lema-white matter differentiation is normal. The visualized portions of the orbits are normal. The visualized portions of the mastoids are normal. The visualized portions of the paranasal sinuses are normal. No fractures are identified. Calcifications of the falx are noted. IMPRESSION: No intracranial hemorrhage, mass effect or midline shift. Dictated by: Lamin Vargas M.D. The radiology attending physician has personally reviewed this study, and had reviewed and/or edited this written report and agrees with it. Electronically signed by: Olga Akers M.D. Shanique Bazan MD IMG CT PROCEDURES Final R esult * eGFR (07/04/2022 5:41 AM [employer]ING [employer]) eGFR >90 90 - 130 mL/min/1. 73 m2 [facility] Comment: Interpretive Data Reference Interval Normal ?>/= [...] of Race in Diagnosing Kidney Disease, JASN 2020). The CKD-EPI equation should not be used for patients with unstable renal function and has not been validated in children and those over 70. Current interpretive data was last reviewed 2021. Blood 07/04/2022 5:41 AM [employer]ER 07/04/2022 6:35 AM [employer] SE[employer]ER us Asad Marquis MD LAB BLOOD ORDERABLES Anjana andersen Result [facility] Department [place] [address] * Tissue transglutaminase IgA (TGG-IgA Ab) (07/04/2022 5:41 AM LIN[employer] SE[employer]ER) TTG ab, IgA <0.5 <=14.9 units/mL [facility] Comment: Interpretive data Negative: <15 units/mL Positive: > or equal to 15 units/mL Current interpretive data was last revised on 2016. Blood 07/04/2022 5:41 AM [employer]ER 07/04/2022 6:22 AM [employer]ER us Ady Emanuel MD LAB BLOOD ORDERABLES Final R esult Performing Organization Address City/[facility]/ZIP Co de Phone Number [facility] [place] [address] * Magnesium (07/04/2022 5:41 AM [employer]) Magnesium 1.9 1.4 - 2.5 mg/dL [facility] Blood 07/04/2022 5:41 AM [employer]ER 07/04/2022 6:19 AM [employer] us Ady Emanuel MD LAB BLOOD ORDERABLES Final R esult Performing Organization Address [facility] Co de Phone Number [facility] [place] [address] * Gliadin antibody, IgA (07/04/2022 5:41 AM [employer]) Anti-gliadin, IgA 0.5 <=14.9 units/mL [facility] Comment: Interpretive data Negative: <15 units/mL Positive: > or equal to 15 units/mL Current interpretive data was last revised on 2016. Blood 07/04/2022 5:41 AM [employer] SE[employer]ER 07/04/2022 6:22 AM [employer] SE[employer]ER us Ady Emanuel MD LAB BLOOD ORDERABLES Final R esult Performing Organization Address City/[facility] Co de Phone Number [facility] [place] [address] * Erythrocyte sedimentation rate (07/04/2022 5:41 AM [employer]) Erythrocyte sedimentation rate 9 1 - 20 mm/hr [facility] Blood 07/04/2022 5:41 AM [employer] SE[employer]ER 07/04/2022 6:20 AM [employer]ER us Ady Emanuel MD LAB BLOOD ORDERABLES Final R esult Performing Organization Address [facility]/ZIP Co de Phone Number [facility] [place] [address] * Phosphorus (07/04/2022 5:41 AM LIN[employer] SE[employer]ER) Phosphorus, pl 3.9 2.3 - 4.5 mg/dL [facility] Blood 07/04/2022 5:41 AM [employer] SE[employer]ER 07/04/2022 6:19 AM [employer]ER Asad Marquis MD LAB BLOOD ORDERABLES Anjana l Result Performing Organization Address [facility] Co de Phone Number [facility] [place] [address] * (ABNORMAL) Basic metabolic panel (07/04/2022 5:41 AM [employer] SE[employer]ER) Sodium 140 135 - 145 mmol/L [facility] Potassium, pl 3.5 3.3 - 4.9 mmol/L [facility] Chloride 104 97 - 110 mmol/L [facility] CO2 28 22 - 32 mmol/L [facility] Anion gap 8 2 - 15 mmol/L [facility] BUN 4(L) 8 - 25 mg/dL [facility] Creatinine 0.72 0.40 - 1.00 mg/dL [facility] Glucose 101 70 - 199 mg/dL [facility] Comment: Interpretive Data Fasting glucose >/= 126 [...] classification and Diagnosis of Diabetes Diabetes Care 2017;40 (Suppl. 1):S11. Current interpretive data was last revised 2017. Calcium 9.3 8.5 - 10.3 mg/dL [facility] Blood 07/04/2022 5:41 AM [employer] SE[employer]ER 07/04/2022 6:19 AM [employer] SE[employer]ER Asad Marquis MD LAB BLOOD ORDERABLES Anjana l Result Performing Organization Address [facility] Co de Phone Number [facility] [place] [address] * Lead, blood (07/04/2022 5:41 AM [employer] SE[employer]ER) Lead TNP [facility] Comment: Credited, collection error. Lead, Venous, B was cancelled on 07/06/2022 at 09:49; Specimen was improperly collected. Slaton blue no additive tube received. ??Slaton blue EDTA tube required. Interpretive Data Testing performed by: [facility], [place] [address]. Blood 07/04/2022 5:41 AM LIN[employer] SE[employer]ER 07/04/2022 6:13 AM LINING [employer] SEWER Result [facility] Asad Marquis MD LAB BLOOD ORDERABLES Edit ed Result - Final Performing Organization Address [facility] de Phone Number [facility] [place] [address] * HIV 1/2 Antibody plus p24 Antigen Blood (07/04/2022 5:41 AM LINING [employer] SE[employer]) HIV 1/2 ab + p24 ag Nonreactive Nonreactive [facility] Comment:Nonreactive for HIV- 1 antigen and HIV-1/HIV-2 antibodies. No laboratory evidence of HIV infection. If acute HIV infection is suspected, consider testing for HIV-1 RNA. Current interpretive data was last revised on 22. Blood 07/04/2022 5:41 AM [employer] SE[employer]ER 07/04/2022 6:20 AM [employer] SE[employer]ER Asad Marquis MD LAB MICROBIOLOGY - GENERA L ORDERABLES Final Result Performing Organization Address [facility]/State/ZIP Co de Phone Number [facility] [place] [address] * XR Chest Pa Lateral 2 Views (07/03/2022 1:46 PM [employer]) Anatomical Region Laterality Modality Body, Chest N/A Computed Radiogr aphy 07/03/2022 2:05 PM [employer] Impressions 07/03/2022 2:20 PM [employer]ER There are no relevant prior studies available for comparison. The lungs are clear without pneumonic consolidation or pulmonary edema. There is no pleural effusion. There is no pneumothorax. The cardiomediastinal silhouette is within normal limits. Dictated by: Arlette Rosales MD The radiology attending physician has personally reviewed this study, and had reviewed and/or edited this written report and agrees with it. Electronically signed by: Shanique Maxwell MD Narrative 07/03/2022 2:20 PM [employer] EXAMINATION: XR CHEST PA LATERAL 2 VIEWS Procedure Note Shanique Maxwell MD - 07/03/2022 EXAMINATION: XR CHEST PA LATERAL 2 VIEWS IMPRESSION: There are no relevant prior studies available for comparison. The lungs are clear without pneumonic consolidation or pulmonary edema. There is no pleural effusion. There is no pneumothorax. The cardiomediastinal silhouette is within normal limits. Dictated by: Arlette Rosales MD The radiology attending physician has personally reviewed this study, and had reviewed and/or edited this written report and agrees with it. Electronically signed by: Shanique Maxwell MD Jorge Degroot MD IMG XR PROCEDURES Final R esult * Troponin I high-sensitivity 2-hour (07/03/2022 12:03 PM [employer]) Trop I hs <4 <=17 ng/L [facility] Comment: Interpretive Data For further hscTnI resources including the diagnostic algorithm and an aid in interpretation, copy and paste this link: [email or web address]/[email or web address] Current Interpretive Data last revised 2019. Trop I hs delta 0 ng/L [facility] Trop I hs interp Insignificant [facility] Blood 07/03/2022 12:0 3 PM [employer] 07/03/2022 12:07 PM [employer] us Jorge Degroot MD LAB BLOOD ORDERABLES Anjana l Result [facility] [place] [address] * CT Abdomen Pelvis W Contrast (07/03/2022 11:30 AM [employer] SE[employer]ER) Anatomical Region Laterality Modality Body N/A Computed Tomogra phy 07/03/2022 11:4 2 AM [employer] Impressions 07/03/2022 11:51 AM LIN[employer] SEWER No CT correlate for acute abdominal pain. Dictated by: Tanja Wood MD The radiology attending physician has personally reviewed this study, and had reviewed and/or edited this written report and agrees with it. Electronically signed by: Clemente Foster M.D. Narrative 07/03/2022 11:51 AM [employer] EXAMINATION: ??Computed tomography of the abdomen and pelvis with intravenous contrast HISTORY: Abdominal pain TECHNIQUE: ??Transaxial computed tomographic images of the abdomen and pelvis were obtained with intravenous contrast according to the standard protocol after the uneventful administration of 90 mL Opti-Ray 350 intravenous contrast. COMPARISON: None FINDINGS: The lung bases are clear. ??Imaged heart is normal in size without pericardial effusion. The liver is normal in size without hepatic lesion or biliary ductal dilation. ??The gallbladder, adrenal glands, spleen, and pancreas are normal. The kidneys enhance symmetrically without hydronephrosis. ??The urinary bladder is normal. ??The uterus is present. ??No suspicious adnexal lesion. ??The bowel is normal course and caliber without evidence of obstruction. Abdominal aorta is normal in caliber. ??No suspicious abdominal or pelvic lymphadenopathy. ??No free fluid within the abdomen or pelvis. No pneumoperitoneum. No suspicious osseous lesions. Procedure Note Clemente Foster MD - 07/03/2022 EXAMINATION: Computed tomography of the abdomen and pelvis with intravenous contrast HISTORY: Abdominal pain TECHNIQUE: Transaxial computed tomographic images of the abdomen and pelvis were obtained with intravenous contrast according to the standard protocol after the uneventful administration of 90 mL Opti-Ray 350 intravenous contrast. COMPARISON: None FINDINGS: The lung bases are clear. Imaged heart is normal in size without pericardial effusion. The liver is normal in size without hepatic lesion or biliary ductal dilation. The gallbladder, adrenal glands, spleen, and pancreas are normal. The kidneys enhance symmetrically without hydronephrosis. The urinary bladder is normal. The uterus is present. No suspicious adnexal lesion. The bowel is normal course and caliber without evidence of obstruction. Abdominal aorta is normal in caliber. No suspicious abdominal or pelvic lymphadenopathy. No free fluid within the abdomen or pelvis. No pneumoperitoneum. No suspicious osseous lesions. IMPRESSION: No CT correlate for acute abdominal pain. Dictated by: Tanja Wood MD The radiology attending physician has personally reviewed this study, and had reviewed and/or edited this written report and agrees with it. Electronically signed by: Clemente Foster M.D. Jorge Degroot MD IMG CT PROCEDURES Final R esult * (ABNORMAL) Drugs of Abuse Screen, Urine with Reflex Confirmation (07/03/2022 10:30 AM [employer]) Amphetamine, ur Not Detected CutOff 500ng/mL [facility] Comment: Interpretive Data - Amphetamines: ??Samples containing greater than 500 ng/mL d-methamphetamine ??or other cross-reacting amphetamine compounds are reported as positive. ??Amphetamine immunoassays are subject to significant false positive rates due to cross-reactivity of non-amphetamine drugs. Current Interpretive Data was last reviewed 2018. Barbiturates, ur Not Detected CutOff 200ng/mL [facility] Comment: Interpretive Data - Barbiturates: ??Samples containing greater than 200 ng/mL secobarbital or other cross-reacting barbiturate compounds are reported as positive. ??False positive and false negative results are possible. Current Interpretive Data was last reviewed 2018. Benzodiazepines, ur Not Detected CutOff 100ng/mL [facility] Comment: Interpretive Data - Benzodiazepines: ??Samples containing greater than 100 ng/mL nordiazepam or other cross-reacting compounds are reported as positive. ?? False positive and false negative results are possible. ?? Current Interpretive Data was last reviewed 2018. Cannabinoids, ur Detected(A) CutOff 50 ng/mL [facility] Cocaine, ur Not Detected CutOff 150ng/mL [facility] Comment: Interpretive Data - Cocaine: ??Samples containing greater than 150 ng/mL benzoylecgonine or other cross-reacting compounds are reported as positive. False positive and false negative results are possible. Current Interpretive Data was last reviewed 2018. Fentanyl, Ur Not Detected Cutoff 1 ng/mL [facility] Comment: Interpretive Data - Fentanyls: ??Samples containing greater than 1 ng/mL fentanyl or other cross-reacting fentanyl compounds are reported as detected. ??False positive and false negative results are possible. Current Interpretive Data was last reviewed 2019. Methadone, ur Not Detected CutOff 300ng/mL [facility] Comment: Interpretive Data - Methadone: ??Samples containing greater than 300 ng/mL d,l-methadone or other cross-reacting compounds are reported as positive. ??False positive and false negative results are possible. Current Interpretive Data was last reviewed 2018. Opiates, ur Not Detected CutOff 300ng/mL [facility] Comment: Interpretive Data - Opiates: ??Samples containing greater than 300 ng/mL morphine or other cross-reacting compounds are reported as positive. ??False positive and false negative results are possible. Current Interpretive Data was last reviewed 2018. Oxycodone, ur Not Detected CutOff 100ng/mL [facility] Comment: Interpretive Data - Oxycodone: ??Samples containing greater than 100 ng/mL oxycodone or other cross-reacting compounds are reported as positive. ??False positive and false negative results are possible. ?? Current Interpretive Data was last reviewed 2018. Phencyclidine, ur Not Detected CutOff 25 ng/mL [facility] Comment: Interpretive Data - Phencyclidine: ??Samples containing greater than 25 ng/mL phencyclidine or other cross-reacting compounds are reported as positive. ??False positive and false negative results are possible. ?? Current Interpretive Data was last reviewed 2018. Urine Creatinine 65 mg/dL [facility] Comment: Interpretive Data Urine Creatinine: < 10 mg/dL is extremely dilute = or > 10 but < 20 mg/dL is dilute = or > 20 mg/dL is normal Current Interpretive Data was last revised on 2017. Urine 07/03/2022 10:3 0 AM [employer] 07/03/2022 10:41 AM [employer] Narrative [facility] - 07/04/2022 12:12 PM [employer] Drug of Abuse screening is performed by immunoassay for medical purposes only. ??This is not to be used for Pain Management purposes. ??If Detected, confirmation testing will be performed for Amphetamines, Cocaine, Fentanyl, Methadone, Opiates, Oxycodone or Phencyclidine. Shanique Bazan MD LAB URINE ORDERABLES Anjana l Result Performing Organization Address [facility] Co de Phone Number [facility] [place] [address] * hCG, urine, qualitative (07/03/2022 10:30 AM [employer]) HCG, ur Negative Negative [facility] Urine 07/03/2022 10:3 0 AM [employer] 07/03/2022 10:41 AM [employer] us Jorge Degroot MD LAB URINE ORDERABLES Anjana l Result Performing Organization Address [facility] Co de Phone Number [facility] [place] [address] * POCT creatinine (07/03/2022 10:23 AM [employer]) Creatinine POC 0.7 0.4 - 1.0 mg/dL [facility] Blood 07/03/2022 10:2 3 AM [employer] 07/03/2022 10:23 AM [employer] Yayo Patterson MD LAB POCT ORDERABLES - ISIDRO CE Final Result Performing Organization Address [facility] Co de Phone Number [facility] [place] [address] * Urinalysis reflex to microscopic and culture Urine (07/03/2022 10:16 AM [employer]) Color, ur Straw Yellow [facility] Clarity, ur Clear Clear [facility] Specific gravity, ur 1.014 1.003 - 1.030 [facility] pH, urine 7.5 [facility] Protein, ur ql Negative Negative [facility] Glucose, ur ql Negative Negative [facility] Ketones, ur Negative Negative [facility] Bilirubin, ur Negative Negative [facility] Blood, ur Negative Negative [facility] Urobilinogen, ur <2.0 <2.0 mg/dL [facility] Nitrite, ur Negative Negative [facility] Leukocyte esterase, ur Negative Negative [facility] UA reflex comment Reflex conditions for microscopic UA and culture not met. [facility] Urine 07/03/2022 10:1 6 AM [employer] 07/03/2022 10:22 AM [employer] Narrative [facility] - 07/03/2022 10:26 AM [employer] ?? Urine pH is affected by diet, medications, systemic acid-base disturbances, and renal tubular function. ??pH may affect urinary stone formation. ??For example, urine pH below 6.0 may help reduce the tendency for calcium phosphate stones and pH greater than 6.0 may reduce the tendency for uric acid stone formation. Source: [employer]. Last revised 06-30-2017 us Jorge Degroot MD LAB MICROBIOLOGY - GENERA L ORDERABLES Final Result [facility] [place] [address] * Vitamin B1 (07/03/2022 10:15 AM [employer]) Pathologist [facility] Thiamine (Vit B1) 92 70 - 180 nmol/L [facility] Comment: ADDITIONAL INFORMATION This test was developed and its performance characteristics determined by [facility] in a manner consistent with CLIA requirements. This test has not been cleared or approved by the U.S. Food and Drug Administration. Test Performed by: [facility] - [facility] [address] [place] [address] Senior Electronics Design Engineer: Juan Villagran M.D. Ph.D.; CLIA# [id number] Blood 07/03/2022 10:1 5 AM [employer] 07/03/2022 10:34 PM [employer] us Ady Emanuel MD LAB BLOOD ORDERABLES Final R esult [facility] [place] [address] * (ABNORMAL) Vitamin D 25 hydroxy (07/03/2022 10:15 AM [employer]) Vitamin D 25-OH 17(L) 30 - 80 ng/mL [facility] Blood 07/03/2022 10:1 5 AM [employer] 07/03/2022 10:18 AM [employer] Narrative [facility] - 07/03/2022 9:54 PM [employer] AGES: -18 years - Sufficient: 20-100 ng/mL; Borderline: 10-20 ng/mL; Deficient: <10 ng/mL. ??Reference intervals pertain to males and females from through age 18. ??Intervals reflect consensus clinical decision limits derived from various reports including the 2011 [place] [employer] Report on calcium and vitamin D. ??Vitamin D concentrations may vary widely depending on ethnic background, geographic location, and the time of the year the sample was obtained. ??References: ??1. Blaise CL, Graciela NICHOLS. Prevention of Rickets and Vitamin D Deficiency in Infants, Children, and Adolescents. Pediatrics 2008;122:9653-3684. ??2. Luciano MESSER, Pam CL, Pierre AL, Cardoza HB, eds. Dietary Reference Intakes for Calcium and Vitamin D. [place] [employer]; National Academies Press:2011 ??3. Lisa PHU, Pasha J, and Dietzen DJ. Circulating Intact Parathyroid Hormone is Suppressed at 25-hydroxyvitamin D Concentrations greater than 25 nmol/L. J Pediatr Endocrinol Metab 2014;doi:10.1515/kdea-7729-0199. Last revised on 07/22/2017. Ady Emanuel MD LAB BLOOD ORDERABLES Final R esult Performing Organization Address [facility] Co de Phone Number [facility] [place] [address] * IgA (07/03/2022 10:15 AM [employer]) Immunoglobulin A 118.0 70.0 - 400.0 mg/dL [facility] Blood 07/03/2022 10:1 5 AM [employer] 07/03/2022 10:18 AM [employer] Ady Emanuel MD LAB BLOOD ORDERABLES Final R esult Performing Organization Address [facility] de Phone Number [facility] [place] [address] * CRP (acute phase) (07/03/2022 10:15 AM [employer]) CRP <0.5 <=10.0 mg/L [facility] Blood 07/03/2022 10:1 5 AM [employer] 07/03/2022 10:18 AM [employer] Ady Emanuel MD LAB BLOOD ORDERABLES Final R esult Performing Organization Address [facility] de Phone Number [facility] [place] [address] * TSH reflex to free T4 (07/03/2022 10:15 AM [employer]) TSH 0.90 0.30 - 4.20 mcIUnit/mL [facility] Blood 07/03/2022 10:1 5 AM [employer] 07/03/2022 10:18 AM [employer] us Ady Emanuel MD LAB BLOOD ORDERABLES Final R esult Performing Organization Address City/[facility]/ZIP Co de Phone Number [facility] [place] [address] * (ABNORMAL) Ferritin (07/03/2022 10:15 AM [employer]) Ferritin 170(H) 13 - 150 ng/mL [facility] Blood 07/03/2022 10:1 5 AM [employer] 07/03/2022 10:18 AM [employer] us Ady Emanuel MD LAB BLOOD ORDERABLES Final R esult Performing Organization Address [facility] Co de Phone Number [facility] [place] [address] * Iron profile w/ IBC (07/03/2022 10:15 AM [employer]) Iron 76 35 - 145 mcg/dL [facility] TIBC 254 250 - 400 mcg/dL [facility] Transferrin saturation 30 20 - 50 % [facility] Blood 07/03/2022 10:1 5 AM [employer] 07/03/2022 10:18 AM [employer] us Ady Emanuel MD LAB BLOOD ORDERABLES Final R esult Performing Organization Address City/[facility] Co de Phone Number [facility] [place] [address] * (ABNORMAL) Vitamin B12 (07/03/2022 10:15 AM [employer]) Vitamin B12 1,748(H) 230 - 1,250 pg/mL [facility] Blood 07/03/2022 10:1 5 AM [employer] 07/03/2022 10:18 AM [employer] us Ady Emanuel MD LAB BLOOD ORDERABLES Final R esult Performing Organization Address [facility] Co de Phone Number [facility] [place] [address] * eGFR (07/03/2022 10:15 AM [employer]) eGFR >90 90 - 130 mL/min/1. 73 m2 [facility] Comment: Interpretive Data Reference Interval Normal ?>/= [...] of Race in Diagnosing Kidney Disease, JASN 2020). The CKD-EPI equation should not be used for patients with unstable renal function and has not been validated in children and those over 70. Current interpretive data was last reviewed 2021. Blood 07/03/2022 10:1 5 AM [employer] 07/03/2022 10:18 AM [employer] us Jorge Degroot MD LAB BLOOD ORDERABLES Anjana l Result Performing Organization Address [facility]/ZIP Co de Phone Number [facility] [place] [address] * Differential, auto (07/03/2022 10:15 AM [employer]) Neutrophil abs 1.9 1.7 - 6.5 K/cumm [facility] Imm gran abs 0.0 0.0 - 0.1 K/cumm [facility] Lymphocyte abs 1.2 0.8 - 3.3 K/cumm [facility] Monocyte abs 0.3 0.2 - 0.8 K/cumm [facility] Eosinophil abs 0.1 0.0 - 0.5 K/cumm [facility] Basophil abs 0.0 0.0 - 0.1 K/cumm [facility] Neutrophil pct 55.8 % [facility] Comment: Interpretive Data Percent cell count reference ranges are not reported, since discordance with absolute values may lead to misinterpretation of CBC data. Current Interpretive Data was last revised on 2017. Imm gran pct 0.3 % [facility] Comment: Interpretive Data Percent cell count reference ranges are not reported, since discordance with absolute values may lead to misinterpretation of CBC data. Current Interpretive Data was last revised on 2017. Lymphocyte pct 34.4 % [facility] Comment: Interpretive Data Percent cell count reference ranges are not reported, since discordance with absolute values may lead to misinterpretation of CBC data. Current Interpretive Data was last revised on 2017. Monocyte pct 7.4 % [facility] Comment: Interpretive Data Percent cell count reference ranges are not reported, since discordance with absolute values may lead to misinterpretation of CBC data. Current Interpretive Data was last revised on 2017. Eosinophil pct 1.5 % [facility] Comment: Interpretive Data Percent cell count reference ranges are not reported, since discordance with absolute values may lead to misinterpretation of CBC data. Current Interpretive Data was last revised on 2017. Basophil pct 0.6 % [facility] Comment: Interpretive Data Percent cell count reference ranges are not reported, since discordance with absolute values may lead to misinterpretation of CBC data. Current Interpretive Data was last revised on 2017. Blood 07/03/2022 10:1 5 AM [employer] 07/03/2022 10:17 AM [employer] Jorge Degroot MD LAB BLOOD ORDERABLES Anjana l Result Performing Organization Address [facility] Co de Phone Number [facility] [place] [address] * Troponin I high-sensitivity series (baseline, 2hr, 4hr, 6hr) (07/03/2022 10:15 AM [employer]) Pathologist [facility] Trop I hs <4 <=17 ng/L [facility] Comment: Interpretive Data For further hscTnI resources including the diagnostic algorithm and an aid in interpretation, copy and paste this link: [email or web address] Current Interpretive Data last revised 2019. Blood 07/03/2022 10:1 5 AM [employer] 07/03/2022 10:17 AM [employer] Jorge Degroot MD LAB BLOOD ORDERABLES Anjana l Result Performing Organization Address [facility] Co de Phone Number [facility] [place] [address] * Phosphorus (07/03/2022 10:15 AM [employer]) [facility] Phosphorus, pl 3.1 2.3 - 4.5 mg/dL [facility] Blood 07/03/2022 10:1 5 AM [employer] 07/03/2022 10:18 AM [employer] Jorge Degroot MD LAB BLOOD ORDERABLES Anjana l Result Performing Organization Address City/[facility]/ZIP Co de Phone Number [facility] [place] [address] * Magnesium (07/03/2022 10:15 AM [employer]) [facility] Magnesium 1.9 1.4 - 2.5 mg/dL [facility] Blood 07/03/2022 10:1 5 AM [employer] 07/03/2022 10:18 AM [employer] us Jorge Degroot MD LAB BLOOD ORDERABLES Anjana nathaly Result [facility] [place] [address] * Respiratory pathogen panel Nasopharyngeal (07/03/2022 10:15 AM [employer]) [facility] Influenza A RNA Not Detected Not Detected [facility] Influenza B RNA Not Detected Not Detected [facility] RSV RNA Not Detected Not Detected [facility] COVID-19 RNA Not Detected Not Detected [facility] Coronavirus 229E RNA Not Detected Not Detected [facility] Coronavirus HKU1 RNA Not Detected Not Detected [facility] Coronavirus NL63 RNA Not Detected Not Detected [facility] Coronavirus OC43 RNA Not Detected Not Detected [facility] Adenovirus DNA Not Detected Not Detected [facility] Metapneumovirus RNA Not Detected Not Detected [facility] Rhinovirus/Enterov irus RNA Not Detected Not Detected [facility] Parainfluenza 1 RNA Not Detected Not Detected [facility] Parainfluenza 2 RNA Not Detected Not Detected [facility] Parainfluenza 3 RNA Not Detected Not Detected [facility] Parainfluenza 4 RNA Not Detected Not Detected [facility] B. pertussis DNA Not Detected Not Detected [facility] B. parapertussis DNA Not Detected Not Detected [facility] C. pneumoniae DNA Not Detected Not Detected [facility] M. pneumoniae DNA Not Detected Not Detected [facility] Nasopharyngeal 07/03/2022 10 :15 AM [employer] 07/03/2022 10:15 AM [employer] Narrative [facility] - 07/03/2022 11:06 AM [employer] Is the Patient experiencing symptoms consistent with COVID?->Yes Date of Symptom Onset->06/16/22 Reason for testing?->Bed placement or semi-private room Surveillance testing for transplant patient?->No ??Interpretive Data The [employer] FilmArray Respiratory Panel (RP2.1) assay is a [...] not be the definite cause of disease. ??Additional testing (lab, imaging, etc.) may be necessary when evaluating a patient with possible respiratory tract infection. The FilmArray RP2.1 assay has FDA clearance for testing of SHUTTLE DRIVER swabs. ??The performance of additional specimen types has been assessed by the performing laboratory. ??The performance characteristics of this assay have been determined by [facility] Molecular Infectious Disease [facility]. Current interpretive data was last revised on 22. us Jorge Degroot MD LAB MICROBIOLOGY - GENERA L ORDERABLES Final Result [facility] [place] [address] * Lipase (07/03/2022 10:15 AM [employer]) Lipase 55 10 - 99 Units/L [facility] Blood 07/03/2022 10:1 5 AM [employer] 07/03/2022 10:18 AM [employer] us Jorge Degroot MD LAB BLOOD ORDERABLES Anjana l Result [facility] [place] [address] * (ABNORMAL) Comprehensive metabolic panel (07/03/2022 10:15 AM [employer]) Sodium 141 135 - 145 mmol/L [facility] Potassium, pl 4.0 3.3 - 4.9 mmol/L [facility] Chloride 103 97 - 110 mmol/L [facility] CO2 27 22 - 32 mmol/L [facility] Anion gap 11 2 - 15 mmol/L [facility] BUN 3(L) 8 - 25 mg/dL [facility] Creatinine 0.74 0.40 - 1.00 mg/dL [facility] Glucose 106 70 - 199 mg/dL [facility] Comment: Interpretive Data Fasting glucose >/= 126 [...] classification and Diagnosis of Diabetes Diabetes Care 2017;40 (Suppl. 1):S11. Current interpretive data was last revised 2017. Calcium 9.5 8.5 - 10.3 mg/dL [facility] Bilirubin, total 0.8 0.1 - 1.2 mg/dL [facility] Protein, pl 7.3 6.5 - 8.5 g/dL [facility] Albumin 4.5 3.5 - 5.0 g/dL [facility] Alk phos 48(L) 70 - 260 Units/L [facility] ALT 14 7 - 45 Units/L [facility] AST 23 10 - 45 Units/L [facility] Blood 07/03/2022 10:1 5 AM [employer] 07/03/2022 10:18 AM [employer] Jorge Degroot MD LAB BLOOD ORDERABLES Anjana l Result Performing Organization Address City/[facility]/ZIP Co de Phone Number [facility] [place] [address] * (ABNORMAL) CBC with auto differential (07/03/2022 10:15 AM [employer]) [facility] WBC 3.4(L) 3.8 - 9.9 K/cumm [facility] Hgb 12.4 11.9 - 15.5 g/dL [facility] Hct 37.3 35.6 - 45.5 % [facility] Plt 217 150 - 400 K/cumm [facility] MPV 10.6 9.1 - 12.3 fL [facility] RBC 4.53 3.90 - 5.20 M/cumm [facility] MCV 82.3 81.3 - 96.4 fL [facility] MCH 27.4 27.1 - 33.3 pg [facility] MCHC 33.2 32.3 - 35.7 g/dL [facility] RDW CV 13.3 11.1 - 14.9 % [facility] RDW SD 40.1 35.7 - 48.1 fL [facility] NRBC abs 0.00 0.00 - 0.01 K/cumm [facility] Blood 07/03/2022 10:1 5 AM [employer] 07/03/2022 10:17 AM [employer] Jorge Degroot MD LAB BLOOD ORDERABLES Anjana l Result Performing Organization Address City/[facility]/ZIP Co de Phone Number [facility] [place] [address] * Calcium, ionized (07/03/2022 9:42 AM [employer]) Calcium, Ionized 4.74 4.50 - 5.10 mg/dL [facility] Blood 07/03/2022 9:42 AM [employer] 07/03/2022 10:08 AM [employer] us Jorge Degroot MD LAB BLOOD ORDERABLES Anjana nathaly Result [facility] [place] [address] * ECG 12-LEAD (07/03/2022 8:25 AM [employer]) Narrative [facility] - 07/03/2022 8:25 AM [employer] Ish Espinal MD ? 07/03/2022 ??8:25 AM ECG 12 lead Date/Time: 07/03/2022 8:25 AM Performed by: Ish Espinal MD Authorized by: Yayo Patterson MD Rate: ??ECG rate: ??97 ??ECG rate assessment: normal ?? Rhythm: ??Rhythm: sinus rhythm ?? Ectopy: ??Ectopy: none ?? QRS: ??QRS axis: ??Normal ??QRS intervals: ??Normal Conduction: ??Conduction: normal ?? ST segments: ??ST segments: ??Normal T waves: ??T waves: normal ?? Previous ECG: ??Previous ECG: ??Unavailable Interpretation: ??Interpretation: No acute injury pattern ?? Recommended Follow-up: ??Recommended follow up: further workup in the ED ?? Procedure Note Ish Espinal MD - 07/03/2022 8:25 AM CST Procedure ECG 12 lead Date/Time: 07/03/2022 8:25 AM Performed by: Ish Espinal MD Authorized by: Yayo Patterson MD Rate: ECG rate: 97 ECG rate assessment: normal Rhythm: Rhythm: sinus rhythm Ectopy: Ectopy: none QRS: QRS axis: Normal QRS intervals: Normal Conduction: Conduction: normal ST segments: ST segments: Normal T waves: T waves: normal Previous ECG: Previous ECG: Unavailable Interpretation: Interpretation: No acute injury pattern Recommended Follow-up: Recommended follow up: further workup in the ED Ish Espinal MD 07/03/22 0825 Yayo Patterson MD ECG ORDERABLES Final Resu lt [facility] documented in this encounter Visit Diagnoses Diagnosis Nausea & vomiting- Primary Nausea with vomiting Chest pain, unspecified type Severely underweight adult Nausea and vomiting, unspecified vomiting type Vision changes Chest pain, unspecified type Abdominal pain Abdominal pain, unspecified site Vision changes Severe malnutrition (CMS/HCC) (HCC) Nutritional marasmus Facial spasm Other facial nerve disorders Vitamin D deficiency High serum vitamin B12 Acute dystonic reaction due 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 Nausea and vomiting, unspecified vomiting type documented in this encounter Admitting Diagnoses Diagnosis Chest pain, unspecified type documented in this encounter Administered Medications Inactive Administered Medications - up to 3 most recent administrations Medication Order MAR Action Action Date Dose Rate Site acetaminophen (TYLENOL) tablet 1,000 mg 1,000 mg (23.8 mg/kg), oral, Every 6 hours PRN, 1st line for pain, fever, fever greater than 38.3 C, Starting on 07/03/22 at 2101, Indications: Fever, PainIndications:Fever,Pain Given 07/12/2022 9:06 PM [employer] 1,000 mg Given 07/11/2022 3:22 AM [employer] 1,000 mg Given 07/06/2022 11:32 AM [employer] 1,000 mg calcium carbonate (TUMS) chewable tablet 1,000 mg 1,000 mg (24.9 mg/kg = 400 mg of elemental calcium), oral, Every 6 hours PRN, indigestion, heartburn, Starting on 07/05/22 at 0052 Given 07/06/2022 11:33 AM [employer] 1,000 mg Given 07/05/2022 1:34 AM [employer] 1,000 mg diphenhydrAMINE (BENADRYL) injection 50 mg 50 mg (1.25 mg/kg), intravenous, Administer over 2 Minutes, Every 6 hours PRN, other, spasm, Starting on Tue07/06/22 at 1948, Indications: spasms or itchingIndications:spasms or itching Given 07/06/2022 8:12 PM [employer] 50 mg enoxaparin (LOVENOX) syringe 30 mg 30 mg (0.713 mg/kg), subcutaneous, Daily (for enoxaparin), First dose on 07/03/22 at 2145, Indications: Deep Vein Thrombosis PreventionIndications:Deep Vein Thrombosis Prevention Given 07/03/2022 9:50 PM [employer] 30 mg Left Lower Abdomen ergocalciferol (VITAMIN D) capsule 50,000 Units 50,000 Units, oral, Weekly, First dose on 07/04/22 at 0900, For 8 doses, Do not crush, break, or open. Given 07/04/2022 9:50 AM [employer] 50,000 Units famotidine (PEPCID) injection 10 mg 10 mg (0.249 mg/kg), intravenous, Administer over 2 Minutes, Every 12 hours, First dose on 07/11/22 at 2330, IV Push over at least 2 minutes Given 07/13/2022 11:16 AM [employer] 10 mg Given 07/12/2022 11:48 PM [employer] 10 mg Given 07/12/2022 2:52 PM [employer] 10 mg folic acid (FOLVITE) tablet 1 mg 1 mg (0.0238 mg/kg), oral, Daily, First dose on 07/03/22 at 2145 Given 07/13/2022 9:34 AM [employer] 1 mg Given 07/12/2022 8:21 AM [employer] 1 mg Given 07/10/2022 10:35 AM [employer] 1 mg lidocaine (GLYDO) 2 % jelly 100 mg 100 mg (2.49 mg/kg = 5 mL), topical, 2 times daily PRN, other, for NG tube discomfort, Starting on Tue07/12/22 at 1517 Given 07/12/2022 5:49 PM [employer] 100 mg lidocaine (LIDODERM) 5 % patch 1 patch 1 patch, transdermal, Administer over 12 Hours, Daily, First dose on 07/04/22 at 0900, Do not cover the holes on the top side of the patch., Apply to affected area: chest Medication Applied 07/13/2022 9:33 AM [employer] 1 patch Chest Medication Applied 07/12/2022 8:22 AM [employer] 1 patch Chest Medication Applied 07/11/2022 9:06 AM [employer] 1 patch Other (Comment) LORazepam (ATIVAN) injection 0.5 mg 0.5 mg (0.0125 mg/kg), intravenous, Every 6 hours PRN, other, nausea/vomiting second line, Starting on Tue07/09/22 at 1521, For IV administration, dilute with equal volume of 0.9% sodium chloride to a final concentration of 1 mg/mL. Do not exceed a rate of 2 mg/minute Given 07/11/2022 9:49 AM [employer] 0.5 mg Given 07/10/2022 4:24 PM [employer] 0.5 mg Given 07/09/2022 7:09 PM [employer] 0.5 mg multivitamin with folic acid 400 mcg tablet 1 tablet 1 tablet, oral, Daily, First dose on 07/04/22 at 0900 Given 07/13/2022 9:34 AM [employer] 1 tablet Given 07/12/2022 8:22 AM [employer] 1 tablet Given 07/10/2022 10:35 AM [employer] 1 tablet ondansetron (ZOFRAN) injection 4 mg 4 mg (0.0998 mg/kg), intravenous, Administer over 2 Minutes, Every 8 hours, First dose (after last modification) on [place] 07/08/22 at 1530 Given 07/13/2022 9:33 AM [employer] 4 mg Given 07/12/2022 11:49 PM [employer] 4 mg Given 07/12/2022 2:52 PM [employer] 4 mg pantoprazole (PROTONIX) 4 mg/mL injection 40 mg 40 mg (0.95 mg/kg), intravenous, Administer over 2 Minutes, Daily, First dose on 07/03/22 at 2230, For IV Push administration for adults- 40 mg vial: add 10 mL of sodium chloride 0.9% to achieve a final concentration of 4 mg/mL, Indications: Treatment of Non-Bleeding Gastric DisorderIndications:Treatment of Non-Bleeding Gastric Disorder Given 07/13/2022 9:33 AM [employer] 40 mg Given 07/12/2022 8:21 AM [employer] 40 mg Given 07/11/2022 8:59 AM [employer] 40 mg phenoL (CHLORASEPTIC) 1.4 % oral spray 1 spray 1 spray, mouth/throat, Every 4 hours PRN, sore throat, Starting on 07/12/22 at 2249 Given 07/13/2022 7:29 AM [employer] 1 spray Given 07/13/2022 3:21 AM [employer] 1 spray polyethylene glycol (MIRALAX) packet 17 g 17 g, oral, Daily, First dose on 07/11/22 at 1415, Indications: constipationIndications:constipation Given 07/13/2022 9:33 AM [employer] 17 g Given 07/12/2022 8:21 AM [employer] 17 g Given 07/11/2022 3:32 PM [employer] 17 g ramelteon (ROZEREM) tablet 8 mg 8 mg (0.19 mg/kg), oral, Nightly PRN, sleep, Starting on 07/03/22 at 2102, Indications: Sleep-Onset InsomniaIndications:Slee p-Onset Insomnia Given 07/03/2022 9:55 PM [employer] 8 mg scopolamine patch 72 hour 1 patch 1 patch, transdermal, Administer over 72 Hours, Every 72 hours, First dose on 07/05/22 at 1030 Medication Applied 07/08/2022 10:19 AM [employer] 1 patch Behind Left Ear Medication Applied 07/05/2022 1:44 PM [employer] 1 patch Behind Left Ear senna 1.76 mg/mL syrup 8.8 mg 8.8 mg (0.219 mg/kg), oral, 2 times daily PRN, constipation, Starting on 07/11/22 at 1333 Given 07/11/2022 4:06 PM [employer] 8.8 mg traMADoL (ULTRAM) tablet 50 mg 50 mg (1.25 mg/kg), oral, 4 times daily PRN, 2nd line for pain, Starting on Tue07/07/22 at 1536 Given 07/08/2022 4:55 PM [employer] 50 mg documented in this encounter Discontinued Medications Medication Sig Discontinue Reason Start Date End Da te ondansetron ODT (ZOFRAN-ODT) 4 mg disintegrating tablet Take 1 tablet (4 mg total) by mouth every 8 (eight) hours as needed for nausea or vomiting Reorder 07/10/2022 07/13/2022 scopolamine 1 mg over 3 days patch [address] 1 patch on the skin every third day Reorder 07/11/2022 07/13/2022 acetaminophen 500 mg capsuleIndications:Fever ,Pain Take 2 capsules (1,000 mg total) by mouth every 6 (six) hours as needed for pain Reorder 07/10/2022 07/13/2022 famotidine (PEPCID) 20 mg tablet Take 1 tablet (20 mg total) by mouth 2 (two) times a day Stop Taking at Discharge 07/13/2022 07/13/2022 documented as of this encounter Active and Recently Administered Medications Times are shown in [employer]. Scheduled Medication Order 07/11/2022 07/12/2022 07/13/2022 enoxaparin (LOVENOX) syringe 30 mg 30 mg (0.713 mg/kg), subcutaneous, Daily (for enoxaparin), First dose on 07/03/22 at 2145, Indications: Deep Vein Thrombosis Prevention 2153 (Not Given - Provider: Bridgette Santiago RN - Reason: Patient/family refused) 2052 (Not Given - Provider: Bridgette Santiago RN - Reason: Patient/family refused) ergocalciferol (VITAMIN D) capsule 50,000 Units 50,000 Units, oral, Weekly, First dose on 07/04/22 at 0900, For 8 doses, Do not crush, break, or open. 0900 (Not Given - Provider: Angelica Barnes RN - Reason: Other - Comment: patient unable to swallow due to nausea) famotidine (PEPCID) 10 mg in sodium chloride 0.9% 50 mL IVPB (CANCELED) 10 mg (0.249 mg/kg), intravenous, at 153 mL/hr, Administer over 20 Minutes, Every 12 hours scheduled, First dose on 07/05/22 at 2100 0901 (New Bag - Provider: Angelica Barnes RN)2232 (New Bag - Provider: Bridgette Santiago RN) famotidine (PEPCID) injection 10 mg 10 mg (0.249 mg/kg), intravenous, Administer over 2 Minutes, Every 12 hours, First dose on 07/11/22 at 2330, IV Push over at least 2 minutes 1452 (Given - Provider: Rebecca Avila RN)1531 (Not Given - Provider: Rebecca Avila RN - Reason: Other - Comment: see mar)2348 (Given - Provider: Bridgette Santiago RN) 1116 (Given - Provider: Rebecca Avila RN) folic acid (FOLVITE) tablet 1 mg 1 mg (0.0238 mg/kg), oral, Daily, First dose on 07/03/22 at 2145 1536 (Not Given - Provider: Angelica Barnes RN - Reason: Other - Comment: patient unable to swallow due to nausea) 0821 (Given - Provider: Rebecca Avila RN) 0934 (Given - Provider: Rebecca Avila RN) lidocaine (LIDODERM) 5 % patch 1 patch 1 patch, transdermal, Administer over 12 Hours, Daily, First dose on 07/04/22 at 0900, Do not cover the holes on the top side of the patch., Apply to affected area: chest 0906 (Medication Applied - Provider: Angelica Barnes RN)2154 (Medication Removed - Provider: Bridgette Santiago RN) 0822 (Medication Applied - Provider: Rebecca Avila RN)205 (Medication Removed - Provider: Bridgette Santiago RN - Comment: Pt reports that she took it off) 0933 (Medication Applied - Provider: Rebecca Avila RN)1303 (Due: Medication Removed - Provider: Automatic Discharge Provider - Comment: Time automatically adjusted from order being discontinued) multivitamin with folic acid 400 mcg tablet 1 tablet 1 tablet, oral, Daily, First dose on 07/04/22 at 0900 0900 (Not Given - Provider: Angelica Barnes RN - Reason: Other - Comment: patient unable to swallow due to nausea) 0822 (Given - Provider: Rebecca Aivla RN) 0934 (Given - Provider: Rebecca Avila RN) ondansetron (ZOFRAN) injection 4 mg 4 mg (0.0998 mg/kg), intravenous, Administer over 2 Minutes, Every 8 hours, First dose (after last modification) on [place] 07/08/22 at 1530 0031 (Given - Provider: Bridgette Santiago RN)0856 (Given - Provider: Angelica Barnes RN)1532 (Given - Provider: Angelica Barnes RN)2232 (Given - Provider: Bridgette Santiago RN) 0821 (Given - Provider: Rebecca Avila RN)1452 (Given - Provider: Rebecca Avila RN)2349 (Given - Provider: Bridgette Santiago RN) 0933 (Given - Provider: Rebecca Avila, RN) pantoprazole (PROTONIX) 4 mg/mL injection 40 mg 40 mg (0.95 mg/kg), intravenous, Administer over 2 Minutes, Daily, First dose on 07/03/22 at 2230, For IV Push administration for adults- 40 mg vial: add 10 mL of sodium chloride 0.9% to achieve a final concentration of 4 mg/mL, Indications: Treatment of Non-Bleeding Gastric Disorder 0859 (Given - Provider: Angelica Barnes RN) 0821 (Given - Provider: Rebecca Avila RN) 0933 (Given - Provider: Rebecca Avila, RN) polyethylene glycol (MIRALAX) packet 17 g 17 g, oral, Daily, First dose on 07/11/22 at 1415, Indications: constipation 1532 (Given - Provider: Angelica Barnes RN) 0821 (Given - Provider: Rebecca Avila RN) 0933 (Given - Provider: Rebecca Avila RN) scopolamine patch 72 hour 1 patch 1 patch, transdermal, Administer over 72 Hours, Every 72 hours, First dose on 07/05/22 at 1030 1030 (Not Given - Provider: Angelica Barnes RN - Reason: Patient/family refused)1430 (Medication Removed - Provider: Angelica Barnes RN) thiamine (VITAMIN B1) tablet 100 mg 100 mg (2.38 mg/kg), oral, Daily, First dose on 07/03/22 at 2145, On hold since 07/04/2022 at 1153 until manually unheld 0900 (Dose Auto Held) 0900 (Dose Auto Held) 0900 (Dose Auto Held)1703 (Unheld by Provider - Provider: Automatic Discharge Provider) PRN Medication Order 07/11/2022 07/12/2022 07/13/2022 acetaminophen (TYLENOL) tablet 1,000 mg 1,000 mg (23.8 mg/kg), oral, Every 6 hours PRN, 1st line for pain, fever, fever greater than 38.3 C, Starting on 07/03/22 at 2101, Indications: Fever, Pain 0322 (Given - Provider: Bridgette Santiago RN) 2106 (Given - Provider: Bridgette Santiago RN) calcium carbonate (TUMS) chewable tablet 1,000 mg 1,000 mg (24.9 mg/kg = 400 mg of elemental calcium), oral, Every 6 hours PRN, indigestion, heartburn, Starting on Tue07/05/22 at 0052 diphenhydrAMINE (BENADRYL) injection 50 mg 50 mg (1.25 mg/kg), intravenous, Administer over 2 Minutes, Every 6 hours PRN, other, spasm, Starting on Tue07/06/22 at 1948, Indications: spasms or itching lidocaine (GLYDO) 2 % jelly 100 mg 100 mg (2.49 mg/kg = 5 mL), topical, 2 times daily PRN, other, for NG tube discomfort, Starting on Tue07/12/22 at 1517 1749 (Given - Provider: Rebecca Avila RN) LORazepam (ATIVAN) injection 0.5 mg 0.5 mg (0.0125 mg/kg), intravenous, Every 6 hours PRN, other, nausea/vomiting second line, Starting on Tue07/09/22 at 1521, For IV administration, dilute with equal volume of 0.9% sodium chloride to a final concentration of 1 mg/mL. Do not exceed a rate of 2 mg/minute 0949 (Given - Provider: Angelica Barnes RN) morphine injection 2 mg (CANCELED) 2 mg (0.0499 mg/kg), intravenous, Administer over 4 Minutes, Every 4 hours PRN, 3rd line for pain, Starting on Tue07/09/22 at 1521 0855 (Given - Provider: Angelica Barnes, MERA)1532 (Given - Provider: Angelica Barnes RN) phenoL (CHLORASEPTIC) 1.4 % oral spray 1 spray 1 spray, mouth/throat, Every 4 hours PRN, sore throat, Starting on Tue07/12/22 at 2249 0321 (Given - Provider: Bridgette Santiago, MERA)0729 (Given - Provider: Bridgette Santiago, MERA) ramelteon (ROZEREM) tablet 8 mg 8 mg (0.19 mg/kg), oral, Nightly PRN, sleep, Starting on 07/03/22 at 2102, Indications: Sleep-Onset Insomnia senna 1.76 mg/mL syrup 8.8 mg 8.8 mg (0.219 mg/kg), oral, 2 times daily PRN, constipation, Starting on 07/11/22 at 1333 1606 (Given - Provider: Angelica Barnes RN) traMADoL (ULTRAM) tablet 50 mg 50 mg (1.25 mg/kg), oral, 4 times daily PRN, 2nd line for pain, Starting on 07/07/22 at 1536 documented in this encounter Orders Medications Ordered That Earle ht Not Have Been Administered Count Last Ordered Date First Ordered Date lidocaine (GLYDO) 2 % jelly 100 mg 1 2022 phenoL (CHLORASEPTIC) 1.4 % oral spray 1 spray 1 07/12/2022 famotidine (PEPCID) injection 10 mg 1 07/11 ondansetron (ZOFRAN) injection 4 mg 8 07/1107/03/2022 polyethylene glycol (MIRALAX) packet 17 g 1 07/11/2022 senna 1.76 mg/mL syrup 8.8 mg 1 07/11/2022 HYDROmorphone (DILAUDID) injection 0.2 mg 2 07/10/2022 07/06/2022 ketorolac (TORADOL) 15 mg/mL injection 15 mg 1 07/10/2022 LORazepam (ATIVAN) injection 0.5 mg 1 07/09 morphine injection 1 mg 2 07/09/202206/20 morphine injection 2 mg 1 07/09/2022 sodium chloride 0.9% infusion 1 07/07/2022 traMADoL (ULTRAM) tablet 50 mg 1 07/07/2022 Carrier Fluids for Secondary Infusion - 0.9% Sodium Chloride 1 07/06/2022 diphenhydrAMINE (BENADRYL) injection 50 mg 2 07/06/2022 07/04/2022 sodium chloride 0.9% flush 0.5-20 mL 2 06/20 calcium carbonate (TUMS) mayela wable tablet 1,000 mg 1 07/05/2022 dextrose 5% and Lactated Ringer's infusion 2 07/05/2022 07/03/2022 famotidine (PEPCID) 10 mg in sodium chloride 0.9% 50 mL IVPB 1 07/05/2022 gadoterate meglumine injection 20 mL 1 06/20 LORazepam (ATIVAN) injection 0.25 mg 1 06/20 scopolamine patch 72 hour 1 patch 1 023 acetaminophen (TYLENOL) tablet 1,000 mg 1 0 07/03/2022 baclofen (LIORESAL) tablet 5 mg 1 droperidoL (INAPSINE) injection 0.625 mg 1 07/03/2022 enoxaparin (LOVENOX) syringe 30 mg 1 2022 ergocalciferol (VITAMIN D) c apsule 50,000 Units 1 07/03/2022 folic acid (FOLVITE) tablet 1 mg 1 07/03/19 ioversoL (OPTIRAY 350) syringe 125 mL 1 Lactated Ringer's (LR) bolus 1,000 mL 2 lidocaine (LIDODERM) 5 % patch 1 patch 1 multivitamin with folic acid 400 mcg tablet 1 tablet 1 07/03/2022 pantoprazole (PROTONIX) 4 mg /mL injection 40 mg 1 07/03/2022 prochlorperazine (COMPAZINE) injection 5 mg 1 07/03/2022 prochlorperazine (COMPAZINE) tablet 5 mg 1 07/03/2022 ramelteon (ROZEREM) tablet 8 mg 1 thiamine (VITAMIN B1) tablet 100 mg 1 07/03 Lab Orders Without Results Count Last Ordered D ate First Ordered Date MAGNESIUM 1 07/13/2022 PHOSPHORUS 1 07/13/2022 COPPER, SERUM 1 07/04/2022 DRUGS OF ABUSE SCREEN, URINE WITH REFLEX CONFIRMATION 1 07/04/2022 CELIAC DISEASE ANTIBODY SCREEN 1 07/03/2022 CRP (ACUTE PHASE) 1 07/03/2022 ERYTHROCYTE SEDIMENTATION RATE 1 07/03/2022 FERRITIN 1 07/03/2022 FOLATE 1 07/03/2022 IGA 1 07/03/2022 IRON PROFILE W/ IBC 1 07/03/2022 POCT CREATININE - DEVICE 1 07/03/2022 TSH REFLEX TO FREE T4 1 07/03/2022 VITAMIN B1 1 07/03/2022 VITAMIN B12 1 07/03/2022 VITAMIN D 25 HYDROXY 1 07/03/2022 Nursing Count Last Ordered Date First Orde red Date TUBE INSERTION 1 07/11/2022 VISUAL ACUITY SCREENING 1 07/03/2022 Consult Count Last Ordered Date First Orde red Date IP CONSULT TO PSYCHIATRY 1 07/12/2022 IP CONSULT TO NUTRITION SERVICES 2 07/11/19 23 07/03/2022 IP CONSULT TO GASTROENTEROLOGY 1 07/05/2022 IP CONSULT TO NEUROLOGY 1 07/04/2022 Admission Count Last Ordered Date First Orde red Date ADMIT TO INPATIENT 1 07/03/2022 Discharge Count Last Ordered Date First Orde red Date DISCHARGE PATIENT 1 07/13/2022 Case Request Count Last Ordered Date First Orde red Date CASE REQUEST GI 1 07/06/2022 documented in this encounter Additional Health Concerns Infection Onset Date Last Indicated Resolved Time COVID: Suspected 07/03/2022 07/03/2022 07/03/2022 11:07 AM [employer] documented as of this encounter Care Teams Clinical Cytogeneticist Relationship Specialty Start Date End Date Rita Lynn MD [address] [place] [id number] PCP - General Pediatrics 07/04/22 No, Physician 07/03/22 documented as of this encounter
--- OUTSIDE RECORDS SUMMARY | 2024-07-02 06:54 | XMS_ITS | Encounter Summary ---
Author Organization [facility] Healthcare Address [address] [place] [address] Care Team Providers Care Paper Bundler Name Role Phone Rita Lynn MD Primary Care Provider [phone] No, Physician Unavailable Reason for Visit * Auth/Cert Specialty Diagnoses / Procedures Referred By Contac t Referred To Contact Diagnoses Chest pain, unspecified type Severely underweight adult Procedures N/A Referral ID Status Reason Start Date Expiration Date Visits Re quested Visits Authorized [id number] 1 1 Encounter Details Date Type Department Care Team (Late st Contact Info) Description 07/07/2022 11:22 AM BUSINESS MANAGEMENT PROFESSOR Anesthesia Event [facility] [place] [address] [place] [address] Betsey Hernandez MD PhD [address] [place] [address] Nilo Mistry MD [address] [place] [address] Anesthesia Record Procedure Summary Procedure Name Responsible Anesthesiologist Anesthesia Start Time Anesthesia Stop Time ESOPHAGOGASTRODUODENOSCOPY BIOPSY Betsey Hernandez MD PhD 07/07/22 1122 07/07/22 1153 Events Date Time Event Comment 07/07/2022 1058 1122 In Room 1122 An Start 1123 An Start Data 1129 Start Supplemental O2 1129 Patient Positioned Laterally 1129 Bite Block Placed 1129 An Induction The patient was reevaluated immediately before moderate or deep sedation use and before anesthesia induction. 1132 Proc Start 1132 Anesthesia Ready 1141 Proc Fin 1148 an stop data 1149 Out of Room 1153 Handoff to RN I completed my handoff to the receiving nurse during which we: 1. Patient identified 2. Responsible provider identified 3. Pertinent medical history reviewed 4. Procedure type and surgical course discussed 5. Intraoperative anesthetic management and any significant issues discussed 6. Expectations and concerns for postop period discussed 7. Questions solicited from receiving nurse 8. Patient disposition at the time of handoff: No value filed. 1153 An Stop Meds Name Total fentaNYL 12.5 mcg lidocaine (cardiac) syringe 2 % 40 mg propofol 70 mg propofol 72.18 mg sodium chloride 0.9% infusion 200 mL * Agents Name O2% N2O O2 * Blood No blood administrations on file. Lines, Drains, and Airways Type Details Placement Removal Peripheral IV Catheter Size: 20 G; Orientation: Right; Location: Antecubital; Site Prep: Chlorhexidine; Technique: Anatomical landmarks; Inserted by: MERA Moyer; Insertion Attempts: 1; Patient Tolerance: Tolerated well 06/18/22 1438 by Peripheral IV Placement Date: 06/20 12/10; Placement Time: 0230; Catheter Size: 20 G; Orientation: Posterior, Right; Location: Forearm; Site Prep: Chlorhexidine; Inserted by: KELLI; Insertion Attempts: 1; Patient Tolerance: Tolerated well; Removal Date: 07/08/22; Removal Time: 1706; Removal Reason: Occluded 07/05/22 0230 by Linda Schwartz RN 07/08/22 1706 by Filomena Orozco RN documented in this encounter Social History Tobacco Use Types Packs/Day Years Used Date Smoking Tobacco: Some Days Vaping Comments No Sex and Gender Information Value Date Recorded Sex Assigned at Not on file Legal Sex Female 7:29 PM BUSINESS MANAGEMENT PROFESSOR Gender Identity Not on file Sexual Orientation Not on file documented as of this encounter OR Notes * Anesthesia Postprocedure Evaluation - Mary Lou Wyatt MD - 07/07/2022 12:33 PM CST Patient: Lorraine Pacheco Procedure Summary Date: 07/07/22 Room / Location: [facility] ROOM 9 / [facility] Anesthesia Start: 1122 Anesthesia Stop: 1153 Procedure: ESOPHAGOGASTRODUODENOSCOPY BIOPSY Diagnosis: Nausea and vomiting, unspecified vomiting type (Nausea and vomiting, unspecified vomiting type [R11.2]) Providers: Brittnee Babb MD Responsible Provider: Betsey Hernandez MD PhD Anesthesia Type: MAC ASA Status: 2 Anesthesia Type: MAC Last vitals BP 123/98 (BP Location: Right arm, Patient Position: Lying) Pulse 98 Temp 36.2 ??C (97.2 ??F) (Temporal) Resp 21 SpO2 98% Anesthesia Post Evaluation Patient location during evaluation: PACU Patient participation: complete - patient participated Level of consciousness: fully awake Pain score: 0 Pain management: adequate Airway patency: adequate Evidence of recall: no Anesthetic complications: no Cardiovascular status: acceptable Respiratory status: acceptable Hydration status: acceptable Pt is: normothermic Nausea/Vomiting status: none No notable events documented. NESS MANAGEMENT PROFESSOR * Anesthesia Preprocedure Evaluation - Nilda Ellis MLT - 07/07/2022 10:56 AM CST Anesthesia Evaluation Lorraine Pacheco is a 17 y.o. female Procedure(s): ESOPHAGOGASTRODUODENOSCOPY Pre-Op Diagnosis Codes: * Nausea and vomiting, unspecified vomiting type [R11.2] Patient Active Problem List Diagnosis ??? Chest pain, unspecified type ? ? Nausea & vomiting ??? Vision changes ??? Severe malnutrition (CMS/HCC) (HCC) ??? Vitamin D deficiency ??? High serum vitamin B12 ??? Acute dystonic reaction due to drugs History reviewed. No pertinent past medical history. History reviewed. No pertinent surgical history. OB History No obstetric history on file. Allergies Allergen Reactions ??? Compazine [Prochlorperazine] Dystonia Also droperidol No medications reported. Current Facility-Administered Medications: ??? [MAR Hold] acetaminophen (TYLENOL) tablet 1,000 mg, 1,000 mg, oral, Q6H PRN, 1,000 mg at 07/06/22 1132 ??? [MAR Hold] calcium carbonate (TUMS) chewable tablet 1,000 mg, 400 mg of elemental calcium, oral, Q6H PRN, 1,000 mg at 07/06/22 1133 ??? Carrier Fluids for Secondary Infusion - 0.9% Sodium Chloride, 30 mL, intravenous, PRN ??? [AUG Hold] diphenhydrAMINE (BENADRYL) injection 50 mg, 50 mg, intravenous, Q6H PRN, 50 mg at 07/06/222011 ??? [AUG Hold] enoxaparin (LOVENOX) syringe 30 mg, 30 mg, subcutaneous, Daily- 2100, 30 mg at 07/03/222149 ??? [AUG Hold] ergocalciferol (VITAMIN D) capsule 50,000 Units, 50,000 Units, oral, Weekly, 50,000 Units at 07/04/22949 ??? [AUG Hold] famotidine (PEPCID) 10 mg in sodium chloride 0.9% 50 mL IVPB, 10 mg, intravenous, Q12H FERMIN, Last Rate: 153 mL/hr at 07/07/22900, 10 mg at 07/07/22900 ??? [AUG Hold] folic acid (FOLVITE) tablet 1 mg, 1 mg, oral, Daily, 1 mg at 07/06/22 0846 ??? [AUG Hold] lidocaine (LIDODERM) 5 % patch 1 patch, 1 patch, transdermal, Daily, 1 patch at 07/07/22 0900 ??? [MAR Hold] LORazepam (ATIVAN) injection 0.25 mg, 0.25 mg, intravenous, Q6H PRN, 0.25 mg at 07/06/22 233 ??? [MAR Hold] multivitamin with folic acid 400 mcg tablet 1 tablet, 1 tablet, oral, Daily, 1 tablet at 07/06/22 0846 ??? [MAR Hold] ondansetron (ZOFRAN) injection 4 mg, 4 mg, intravenous, Q8H PRN, 4 mg at 07/06/222033 ??? [AUG Hold] pantoprazole (PROTONIX) 4 mg/mL injection 40 mg, 40 mg, intravenous, Daily, 40 mg at07/07/22900 ??? [MAR Hold] ramelteon (ROZEREM) tablet 8 mg, 8 mg, oral, Nightly PRN, 8 mg at 07/03/222154 ??? [MAR Hold] scopolamine patch 72 hour 1 patch, 1 patch, transdermal, Q72H, 1 patch at 07/05/22 1344 ??? sodium chloride 0.9% flush 0.5-20 mL, 0.5-20 mL, intra-catheter, Q8H FERMIN, 10 mL at 07/07/22 0649 ??? sodium chloride 0.9% flush 0.5-20 mL, 0.5-20 mL, intra-catheter, PRN ??? sodium chloride 0.9% infusion, 30 mL/hr, intravenous, Continuous, Last Rate: 30 mL/hr at 07/07/22 1033, 30 mL/hr at 07/07/22 1033 ??? [Held by Provider] thiamine (VITAMIN B1) tablet 100 mg, 100 mg, oral, Daily Social History Tobacco Use Smoking Status Some Days ??? Types: Vaping Smokeless Tobacco Not on file Alcohol Use: Not on file Substance and Sexual Activity Drug Use Yes ??? Types: Marijuana Family History Problem Relation Age of Onset ??? Ovarian cancer Mother Vitals: 07/07/22 0640 07/07/22 0815 07/07/22 1028 BP: 99/73 114/82 (!) 128/108 Pulse: 113 107 115 Resp: 18 16 21 Temp: 36.8 ??C (98.2 ??F) 36.6 ??C (97.9 ??F) 36.3 ??C (97.4 ??F) SpO2: 99% 99% 100% PT: 07/06/2022: 13.5 sec INR: 07/06/2022: 1.2 APTT: No results found for requested labs within last 720 hours. Hgb A1C: No results found for requested labs within last 720 hours. CBC RBC: 07/03/2022: 4.53 M/cumm RDW: No results found for requested labs within last 720 hours. MCHC: 07/03/2022: 33.2 g/dL MCH: 07/03/2022: 27.4 pg MCV: 07/03/2022: 82.3 fL Hct: 07/03/2022: 37.3 % Hgb: 07/03/2022: 12.4 g/dL WBC: 07/03/2022: 3.4 K/cumm (L) MPV: 07/03/2022: 10.6 fL Platelets: 07/03/2022: 217 K/cumm RDW CV: 07/03/2022: 13.3 % RDW Sd: 07/03/2022: 40.1 fL BMP Glucose: 07/07/2022: 92 mg/dL Calcium: 07/07/2022: 9.6 mg/dL Sodium: 07/07/2022: 138 mmol/L Potassium: 07/07/2022: 4.0 mmol/L CO2: 07/07/2022: 26 mmol/L Chloride: 07/07/2022: 98 mmol/L BUN: 07/07/2022: 12 mg/dL Creatinine: 07/07/2022: 0.92 mg/dL DOS Physical Exam Medical history, medications, and allergies reviewed. Attestation: This PAT evaluation 07/07/2022. Airway Exam: Mallampati: II Cervical ROM: FROM TM distance: normal Cardiovascular Exam: Rate: tachycardia Rhythm: regular Pulmonary Exam: LCTA, bilat EENT Exam: trachea midline Dental Exam: Missing and otherwise appears intact (Back molars.) Skin Exam: Skin is warm. Current state: Patient's current state is cooperative. Additional comments: No interval change in medical condition. Anesthesia Plan ASA 2 My patient is approved for the Anesthesia Controlled Medication protocol when under care of a FINANCIAL COMPLIANCE EXAMINER Planned anesthesia: MAC Induction: Induction: intravenous. Postoperative Plan: Patient's planned disposition post procedure is Outpatient. Informed Consent: Discussed plan with FINANCIAL COMPLIANCE EXAMINER. Anesthesia plan and risks discussed with patient. Plan and Consent Comments: NPO status confirmed Nilda Lawrence am scribing for, and in the presence of Dr. Hernandez. . Consent and Attending signature: I and/or my designee have discussed the anesthesia plan, benefits, possible alternatives, parental presence at time of induction (if indicated), and clinically relevant risks that may include dental injury, unintentional awareness, and/or other complications. The patient and/or parent/legal guardian understand, and agree to proceed. All questions answered. Cosigned by Betsey Hernandez MD PhD at 07/07/2022 1:17 PM BUSINESS MANAGEMENT PROFESSOR NESS MANAGEMENT PROFESSOR NESS MANAGEMENT PROFESSOR documented in this encounter Plan of Treatment Not on file documented as of this encounter Visit Diagnoses Not on filedocumented in this encounter Administered Medications Inactive Administered Medications - up to 3 most recent administrations Medication Order MAR Action Action Date Dose Rate Site fentaNYL (SUBLIMAZE) preservative free injection intravenous, As needed, Starting on Tue07/07/22 at 1136, Anesthesia Intra-op Given 07/07/2022 11:36 AM BUSINESS MANAGEMENT PROFESSOR 12.5 mcg lidocaine (cardiac) (XYLOCAINE) preservative free injection intravenous, As needed, Starting on Tue07/07/22 at 1129, Anesthesia Intra-op, Indications: Ventricular ArrhythmiasIndications:Ventricu lar Arrhythmias Given 07/07/2022 11:29 AM BUSINESS MANAGEMENT PROFESSOR 40 mg propofoL (DIPRIVAN) 10 mg/mL IV intravenous, As needed, Starting on Tue07/07/22 at 1129, Anesthesia Intra-op Given 07/07/2022 11:30 AM BUSINESS MANAGEMENT PROFESSOR 20 mg Given 07/07/2022 11:29 AM BUSINESS MANAGEMENT PROFESSOR 50 mg propofoL (DIPRIVAN) 10 mg/mL IV intravenous, Continuous PRN, Starting on Tue07/07/22 at 1129, Anesthesia Intra-op New Bag 07/07/2022 11:29 AM BUSINESS MANAGEMENT PROFESSOR 150 mcg/kg/min 36.09 mL/hr sodium chloride 0.9% infusion 30 mL/hr, intravenous, Continuous, Starting on Tue07/07/22 at 1100, For 6 hours, Pre-Procedure (GI) Rate/Dose Verify 07/07/2022 11:22 AM BUSINESS MANAGEMENT PROFESSOR 30 mL/hr New Bag 07/07/2022 10:33 AM BUSINESS MANAGEMENT PROFESSOR 30 mL/hr 30 mL/hr documented in this encounter Care Teams Paper Bundler Relationship Specialty Start Date End Date Rita Lynn MD [address] [place] [address] PCP - General Pediatrics 07/04/22 No, Physician 07/03/22 documented as of this encounter
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
--- OUTSIDE RECORDS SUMMARY | 2024-07-02 06:54 | XMS_ITS | Encounter Summary ---
Author Organization [facility] Healthcare Address [address] [place] [id number] Care Team Providers Care Medical Grade Shoemaker Name Role Phone No, Physician Primary Care Provider [phone] Reason for Visit * Reason Comments Vomiting Abdominal Pain Encounter Details Date Type Department Care Team (Late st Contact Info) Description 06/18/2022 1:40 PM FIELD ORGANIZER - 06/18/2022 7:17 PM FIELD ORGANIZER Emergency [facility] Emergency Department [address] [place] [id number] Evelyn Cheema MD 1 [place], [place] [id number] Lucius Pappas MD 1 [place] [address] Influenza A (Primary Dx); Dysmenorrhea Discharge Disposition: Discharge to home or self care Social History Tobacco Use Types Packs/Day Years Used Date Smoking Tobacco: Never Tobacco Cessation:Counseling Given: Not Answered Alcohol Use Standard Drinks/Week Comments Never 0 (1 standard drink = 0.6 oz pur e alcohol) Comments No Sex and Gender Information Value Date Recorded Sex Assigned at Not on file Legal Sex Female 7:29 PM FIELD ORGANIZER Gender Identity Not on file Sexual Orientation Not on file documented as of this encounter Last Filed Vital Signs Vital Sign Reading Time Taken Comments Blood Pressure 117/77 06/18/2022 7:15 PM FIELD ORGANIZER Pulse 53 06/18/2022 7:15 PM FIELD ORGANIZER Temperature 36.8 ??C (98.3 ??F) 06/18/2022 12:[address] Respiratory Rate 16 06/18/2022 7:15 PM FIELD ORGANIZER Oxygen Saturation 97% 06/18/2022 7:15 PM FIELD ORGANIZER Inhaled Oxygen Concentration - - Weight 46.3 kg (102 lb 1.2 oz) 06/18/2022 12:38 PM FIELD ORGANIZER Height - - Body Mass Index - - documented in this encounter Discharge Instructions * Discharge Instructions* Lucius Pappas MD - 06/18/2022 6:40 PM FIELD ORGANIZER - Take meotclopramide every 6 hours as needed for vomiting - you can also try zofran every 8 hours to help with nausea - Give tylenol and/or ibuprofen as needed for fever. You can alternate each every 3 hours - Continue to encourage drinking lots of fluids to prevent dehydration - Please call your powder and primer canning leader or return to the emergency department if you develop trouble breathing, pee less than 3 times in a day, hav repeated vomiting not controlled with medicines, have fevers lasting D ORGANIZER D ORGANIZER documented in this encounter Medications at Time of Discharge medroxyPROGESTER one 150 mg/mL injection Inject 150 mg into the muscle as instructed every 3 (three) months 06/17/2022 metoclopramide (REGLAN) 10 mg tablet Take 1 tablet (10 mg total) by mouth every 6 (six) hours as needed (nausea, vomiting) 6 tablet 06/18/2022 documented as of this encounter Ordered Prescriptions Prescription Sig Dispense Quantity Refills Last Filled Start Date End Date metoclopramide (REGLAN) 10 mg tablet Take 1 tablet (10 mg total) by mouth every 6 (six) hours as needed (nausea, vomiting) 6 tablet 06/18/2022 metoclopramide (REGLAN) 10 mg tablet Take 1 tablet (10 mg total) by mouth every 6 (six) hours as needed (nausea, vomiting) 6 tablet 06/18/2022 06/18/2022 documented in this encounter Discharge Disposition Disposition Code Departure Means Destination Discharge to home or self care documented in this encounter ED Notes * Evelyn Cheema MD - 06/18/2022 2:01 PM CST HPI Chief Complaint Patient presents with Vomiting Abdominal Pain HPI Patient History: 16-year-old female presenting with vomiting of 5 days' duration. Emesis is described as nonbloody nonbilious. She describes it as persistent with no association p.o. intake. She does not have an appetite. There is associated abdominal pain that she described as achy and constant. Pain is worse with ambulation and movement. There was diarrhea on day 1 of illness however she has had no diarrhea since. She has had fever throughout the course of illness. She reports having had no urine output in the last 24 hours. She denies hematuria. She denies blood in her stool. She denies preceding abdominaltrauma. She denies vaginal discharge. Patent was evaluated at an outside hospital on the day prior to presentation. There she was diagnosed with influenza and discharged with a prescription for Zofran. She reports continuing to have emesis despite Zofran. She denies any serologic labs or imaging being performed at her previous hospitalvisit. She is currently menstruating. She denies the possibility that she could be . She does admit to daily marijuana use however has not used marijuana since she has been ill. There are no problems to display for this patient. Past Medical History: Diagnosis Date Known health problems: none No known medical problems. No history of chronic abdominal complaints. No history of constipation. Past Surgical History: Procedure Laterality Date NO PAST SURGERIES N/A No previous abdominal surgeries Family History Problem Relation Age of Onset No Known Problems Mother No Known Problems Father No other family members are currently ill. Social History Tobacco Use Smoking status: Never Smokeless tobacco: None Vaping Use Vaping Use: Former Substances: THC Substance and Sexual Activity Alcohol use: Never Drug use: Yes Types: Marijuana Comment: every dayf Sexual activity: Yes Partners: Female Social History Social History Narrative Denies any concerns about safety. Lives at home with family. Attends school. Daily marijuana use prior to illness. Denies using alcohol. Sexually interested in females. Denies unprotected sex, however, patient is sexually active. Review of Systems Review of Systems Constitutional: Positive for appetite change and fever. HENT: Negative for rhinorrhea and sore throat. Eyes: Negative for redness. Respiratory: Positive for cough. Negative for shortness of breath and wheezing. Cardiovascular: Negative for chest pain and leg swelling. Gastrointestinal: Positive for abdominal pain, nausea and vomiting. Negative for abdominal distention and blood in stool. Endocrine: Negative for polyuria. Genitourinary: Positive for decreased urine volume. Negative for difficulty urinating, dysuria and hematuria. Musculoskeletal: Negative for back pain, neck pain and neck stiffness. Skin: Negative for rash. Allergic/Immunologic: Negative for immunocompromised state. Neurological: Negative for syncope and headaches. Psychiatric/Behavioral: Negative for agitation and confusion. Physical Exam ED Triage Vitals Temp Pulse Resp BP SpO2 06/18/22 1238 06/18/22 1238 06/18/22 1238 06/18/22 1238 06/18/22 1238 36.8 ??C 50 18 116/82 99 % Temp src Heart Rate Source Patient Position BP Location FiO2 (%) 06/18/22 1238 06/18/22 1915 06/18/22 1915 06/18/221914 -- Oral Pulse Oximetry Sitting Right arm Height Height Method Weight Weight Method -- -- 06/18/22 1238 06/18/22 1238 08951 g Standing scale Physical Exam Constitutional: Appearance: She is ill-appearing. She is not toxic-appearing. HENT: Head: Atraumatic. Mouth/Throat: Pharynx: No pharyngeal swelling or oropharyngeal exudate. Eyes: Extraocular Movements: Extraocular movements intact. Pupils: Pupils are equal, round, and reactive to light. Cardiovascular: Rate and Rhythm: Normal rate and regular rhythm. Heart sounds: Normal heart sounds. No murmur heard. Pulmonary: Effort: Pulmonary effort is normal. No respiratory distress. Breath sounds: Normal breath sounds. No wheezing. Abdominal: General: Abdomen is flat. Bowel sounds are normal. Palpations: Abdomen is soft. There is no hepatomegaly or mass. Tenderness: There is guarding. There is no right CVA tenderness or left CVA tenderness. Comments: +RLQ tenderness. +periumbilical tenderness. +heel tap. No distension. Normoactive BS. Skin: General: Skin is warm. Capillary Refill: Capillary refill takes less than 2 seconds. Findings: No rash. Neurological: General: No focal deficit present. Mental Status: She is alert. Psychiatric: Mood and Affect: Mood normal. MDM Medical Decision Making Amount and/or Complexity of Data Reviewed Labs: ordered. Radiology: ordered. Risk Prescription drug management. 16-year-old female with emesis, abdominal pain, fever. She has tested positive for influenza A. While her constellation of symptoms could be due to influenza, it is of concern that her pain is now focal in the right lower quadrant. This raises concern for appendicitis. Also of note is patient admits to daily marijuana use with sudden cessation. This can cause cannabinoid hyperemesis syndrome. This syndrome can be poorly responsive to antiemetics. Other diagnoses to consider are ovarian torsionhowever this should not cause fever, UTI, and nephrolithiasis. Will evaluate with abdominal CT. Additionally, patient reports having had no urine output in the past 24 hours. She has no tachycardia and brisk cap refill however this raises concern for dehydration.Will place peripheral IV, give normal saline bolus, CBC, urinalysis, urine gonorrhea and chlamydia, and CMP. ED Course as of 06/18/222029 Time: 06/18 1658 Comment: CT scan without appendicitis, ovarian torsion, or other cause for surgical intervention. Patient improved mildly without pain medication and thirsty. Will attempt PO challenge and give tylenol for pain. Pending UA and GC/Chlamydia. By: Lucius Pappas MD Time: 06/18 9417 Comment: Patient vomited after zofran. Given 500ml NS bolus and IV reglan and IV toradol. Pain resolved after medication and patient able to tolerated 12 ounces of fluid without nausea or vomiting. Will discharge home with presumed flu and dysmenorrhea but cannot rule out hyperemesis cannabinoid. Will discharge with few doses of reglan, already has zofran. Return precautions provided. By: Lucius Pappas MD Final diagnoses: Influenza A Dysmenorrhea Lucius Pappas MD 06/18/221914 Evelyn Cheema MD 06/18/222029 D ORGANIZER D ORGANIZER * Denise Nolasco RN - 06/18/2022 12:33 PM CST I'm not able to keep any food down. I've been throwing up the last 4 days. Juan F said I had theflu and said to come back in if I keep throwing up. I have stomach pain and I can't eat or cough oranything without it hurting more. Reports nonstop vomiting, unknown number of emesis events. No BM for 3 days, diarrhea reported 4 days ago. Reports mid abdominal pain rated 8/10. No pain medication taken. Emesis during triage. D ORGANIZER documented in this encounter Plan of Treatment Not on file documented as of this encounter Procedures Procedure Name Priority Date/Time Associated Diagnosis Comments N. GONORRHOEAE/C. TRACHOMATIS AMPLIFICATION STAT 06/18/2022 4:57 PM FIELD ORGANIZER URINALYSIS AND REFLEX TO MICROSCOPIC AND CULTURE STAT 06/18/2022 4:57 PM FIELD ORGANIZER URINALYSIS, MICROSCOPIC ONLY STAT 06/18/2022 4:[address] ABDOMEN PELVIS W CONTRAST ED 06/18/2022 4:17 PM FIELD ORGANIZER POCT HCG, URINE Routine 06/18/2022 3:26 PM FIELD ORGANIZER DIFFERENTIAL AUTO STAT 06/18/2022 2:3 5 PM FIELD ORGANIZER CBC WITH AUTO DIFFERENTIAL STAT 06/18/2022 2:35 PM FIELD ORGANIZER LIPASE STAT 06/18/2022 2:35 PM FIELD ORGANIZER COMPREHENSIVE METABOLIC PANEL STAT 06/18/2022 2:35 PM FIELD ORGANIZER documented in this encounter Results * (ABNORMAL) Urinalysis, microscopic only (06/18/2022 4:57 PM FIELD ORGANIZER) WBC, ur 0-5 0 - 5 /HPF DES Comment:Testing performed by : [address] [address] RBC, ur >50(A) 0 - 2 /HPF DES Comment:Testing performed by : [address] [address] Epithelial cells, squamous, ur 21-50(A) 0 - 5 /HPF DES Comment:Testing performed by : [address] [address] Culture Reflex Comment Reflex conditions for urine culture (WBC >10) not met. DES Comment:Testing performed by : [address], [place]., [address] Urine, clean voided 06/18/2022 4:57 PM FIELD ORGANIZER 06/18/2022 5:11 PM FIELD ORGANIZER Evelyn Cheema MD LAB URINE ORDERABLES F inal Result DES [address] [facility] Department [place] [address] * N. gonorrhoeae/C. trachomatis Amplification Urine (06/18/2022 4:57 PM FIELD ORGANIZER) C. trachomatis Not Detected Not Detected DES Comment:Testing performed by : [address] [address] N. gonorrhoeae Not Detected Not Detected DES Comment: Interpretive Data Testing performed by the [facility]. This assay detects Chlamydia trachomatis and Neisseria gonorrhoeae by nucleic acid amplification testing (NAAT). This test is approved by the [facility] [[email or web address]] Food and Drug Administration and the performance characteristics have been verified by the laboratory. The performance characteristics of this test have not been evaluated in individuals less than 14 years of age. Current Interpretive Data was last revised on 2019. Testing performed by: [address] [address] Urine (None) 06/18/2022 4:57 PM FIELD ORGANIZER 06/18/2022 5:11 PM FIELD ORGANIZER Evelyn Cheema MD LAB MICROBIOLOGY - GEN ERAL ORDERABLES Final Result [facility] [address] [facility] Department [place] [address] * (ABNORMAL) Urinalysis reflex to microscopic and culture Urine, clean voided (06/18/2022 4:57 PM FIELD ORGANIZER) Color, ur Yellow Yellow DES Comment:Testing performed by : [address] [address] Clarity, ur Clear Clear DES Comment:Testing performed by : [address] [address] Specific gravity, ur >1.030 1.003 - 1.030 DES Comment:Testing performed by : [address] [address] pH, urine 8.0 DES Comment:Testing performed by : [address] [address] Protein, ur ql 1+(A) Negative DES Comment:Testing performed by : [address] [address] Glucose, ur ql Negative Negative [facility] Comment:Testing performed by : [address] [address] Ketones, ur 1+(A) Negative DES Comment:Testing performed by : [address] [address] Bilirubin, ur Negative Negative DES Comment:Testing performed by : [address] [address] Blood, ur 2+(A) Negative DES Comment:Testing performed by : [facility], [address] [place] [address]., [address] Urobilinogen, ur <2.0 <2.0 mg/dL DES Comment:Testing performed by : [address] [address] Nitrite, ur Negative Negative DES Comment:Testing performed by : [address] [address] Leukocyte esterase, ur Negative Negative DES Comment:Testing performed by : [address] [address] UA reflex comment Reflex to microscopic UA will be performed. DES Comment:Testing performed by : [address] [address] Urine, clean voided 06/18/2022 4:57 PM FIELD ORGANIZER 06/18/2022 5:11 PM FIELD ORGANIZER Narrative DES - 06/18/2022 6:57 PM FIELD ORGANIZER ?? Urine pH is affected by diet, medications, systemic acid-base disturbances, and renal tubular function. ??pH may affect urinary stone formation. ??For example, urine pH below 6.0 may help reduce the tendency for calcium phosphate stones and pH greater than 6.0 may reduce the tendency for uric acid stone formation. Source: [employer]. Last revised 06-30-2017 Evelyn Cheema MD LAB MICROBIOLOGY - GEN ERAL ORDERABLES Final Result Performing Organization Address City/State/[facility] Co de Phone Number DES [address] [facility] Department [place] [address] * CT Abdomen Pelvis W Contrast (06/18/2022 4:17 PM FIELD ORGANIZER) Anatomical Region Laterality Modality Body N/A Computed Tomogra phy 06/18/2022 4:41 PM FIELD ORGANIZER Narrative 06/18/2022 4:44 PM FIELD ORGANIZER EXAM DESCRIPTION: ?? CT ABDOMEN PELVIS W CONTRAST REASON FOR STUDY: ?? 16 year old female with persistent vomiting and abdominal pain. ??Tested positive for influenza A. right lower quadrant abdominal pain is focal with guarding. ??Assess for appendicitis. ??No BM for 3 days, diarrhea reported 4 days ago. ?? TECHNIQUE: CT scan of the abdomen and pelvis performed with intravenous and ?? without ??oral contrast using helical scanning technique with dynamic intravenous contrast injection. Reconstructed coronal and sagittal MPR images reviewed. All images stored on PACS. ??Automated exposure control was used as a dose optimization technique for this examination. CONTRAST TYPE/DOSE: ?? 75 mL Optiray 350 ?? COMPARISON: ?? None available. FINDINGS: LOWER CHEST: ?? No significant pulmonary abnormalities. No effusion. LIVER: ?? Normal size. ??No identified cystic or solid masses. GALLBLADDER: ?? No stones identified. No wall thickening or inflammatory changes. BILE DUCTS: ?? No intrahepatic or extrahepatic ductal dilatation. SPLEEN: ?? Normal size. ??No focal lesions. PANCREAS: ?? No identified cystic or solid masses. No significant calcifications. No adjacent inflammation or peripancreatic fluid collections. Pancreatic duct not dilated. ?? ADRENALS: ?? Normal. KIDNEYS/URINARY TRACT: ?? No identified significant cystic or solid masses. No visualized stones. No hydronephrosis or hydroureter. Symmetric enhancement. ? Urinary bladder is unremarkable. GI: ?? No dilated bowel loops. No obvious wall thickening. ??Normal appendix. ?? No significant diverticular disease. PERITONEUM: ?? Small volume free fluid in the pelvis is nonspecific. ??No free air. RETROPERITONEUM: ?? No mass or adenopathy. REPRODUCTIVE: ?? No significant abnormality. VASCULATURE: ?? No abdominal aortic aneurysm. MUSCULOSKELETAL: ?? No significant abnormality. OTHER: ?? No other abnormality. IMPRESSION: ?? No acute finding. ??Specifically, normal appendix. ??Small volume free fluid in the pelvis is nonspecific, either reactive versus physiologic. THIS IS AN ELECTRONICALLY VERIFIED FINAL REPORT 06/18/2022 4:44 PM - Electronically signed by ??Wilber Terry M.D. ML: ML D: ??06/18/2022 4:44 PM T: ??06/18/2022 4:44 PM Report ID: [id number] Reading Location: ??[id number] Procedure Note Wilber Terry MD - 06/18/2022 EXAM DESCRIPTION: CT ABDOMEN PELVIS W CONTRAST REASON FOR STUDY: 16 year old female with persistent vomiting andabdominal pain. Tested positive for influenza A. right lower quadrant abdominalpain is focal with guarding. Assess for appendicitis. No BM for 3 days, diarrhea reported 4 days ago. TECHNIQUE: CT scan of the abdomen and pelvis performed with intravenousand without oral contrast using helical scanning technique with dynamic intravenous contrast injection. Reconstructed coronal and sagittal MPRimages reviewed. All images stored on PACS. Automated exposure control was usedas a dose optimization technique for this examination. CONTRAST TYPE/DOSE: 75 mL Optiray 350 COMPARISON: None available. FINDINGS: LOWER CHEST: No significant pulmonary abnormalities. Noeffusion. LIVER: Normal size. No identified cystic or solid masses. GALLBLADDER: No stones identified. No wall thickening or inflammatory changes. BILE DUCTS: No intrahepatic or extrahepatic ductal dilatation. SPLEEN: Normal size. No focal lesions. PANCREAS: No identified cystic or solid masses. No significant calcifications. No adjacent inflammation or peripancreatic fluidcollections. Pancreatic duct not dilated. ADRENALS: Normal. KIDNEYS/URINARY TRACT: No identified significant cystic or solid masses.No visualized stones. No hydronephrosis or hydroureter. Symmetricenhancement. Urinary bladder is unremarkable. GI: No dilated bowel loops. No obvious wall thickening. Normalappendix. No significant diverticular disease. PERITONEUM: Small volume free fluid in the pelvis is nonspecific. Nofree air. RETROPERITONEUM: No mass or adenopathy. REPRODUCTIVE: No significant abnormality. VASCULATURE: No abdominal aortic aneurysm. MUSCULOSKELETAL: No significant abnormality. OTHER: No other abnormality. IMPRESSION: No acute finding. Specifically, normal appendix. Smallvolume free fluid in the pelvis is nonspecific, either reactive versusphysiologic. THIS IS AN ELECTRONICALLY VERIFIED FINAL REPORT 06/18/2022 4:44 PM - Electronically signed by Wilber Terry M.D. ML: ML Report ID: [id number] Reading Location: [id number] Evelyn Cheema MD IMG CT PROCEDURES Anjana l Result * POCT hCG, urine (06/18/2022 3:26 PM FIELD ORGANIZER) HCG, ur, POC Negative Lot Number [id number] QC Backgroud Clear Acceptable QC Control Line Acceptable Urine 06/18/2022 3:26 PM FIELD ORGANIZER Evelyn Cheema MD POINT OF CARE TEST ORD ERABLES Final Result * Differential, auto (06/18/2022 2:35 PM FIELD ORGANIZER) Neutrophil abs 3.7 1.7 - 6.5 K/cumm DES Comment:Testing performed by : [address] [address] Imm gran abs 0.0 0.0 - 0.1 K/cumm DES Comment:Testing performed by : [address] [address] Lymphocyte abs 2.3 0.8 - 3.3 K/cumm DES Comment:Testing performed by : [address] [address] Monocyte abs 0.8 0.2 - 0.8 K/cumm DES Comment:Testing performed by : [address] [address] Eosinophil abs 0.0 0.0 - 0.5 K/cumm DES Comment:Testing performed by : [address] [address] Basophil abs 0.0 0.0 - 0.1 K/cumm DES Comment:Testing performed by : [address] [address] Neutrophil pct 54.0 % [facility] Comment: Interpretive Data Percent cell count reference ranges are not reported, since discordance with absolute values may lead to misinterpretation of CBC data. Current Interpretive Data was last revised on 2017. Testing performed by: [address] [address] Imm gran pct 0.3 % [facility] Comment: Interpretive Data Percent cell count reference ranges are not reported, since discordance with absolute values may lead to misinterpretation of CBC data. Current Interpretive Data was last revised on 2017. Testing performed by: [address] [address] Lymphocyte pct 33.3 % DES Comment: Interpretive Data Percent cell count reference ranges are not reported, since discordance with absolute values may lead to misinterpretation of CBC data. Current Interpretive Data was last revised on 2017. Testing performed by: [address] [address] Monocyte pct 11.8 % DES Comment: Interpretive Data Percent cell count reference ranges are not reported, since discordance with absolute values may lead to misinterpretation of CBC data. Current Interpretive Data was last revised on 2017. Testing performed by: [address] [address] Eosinophil pct 0.3 % DES Comment: Interpretive Data Percent cell count reference ranges are not reported, since discordance with absolute values may lead to misinterpretation of CBC data. Current Interpretive Data was last revised on 2017. Testing performed by: [address] [address] Basophil pct 0.3 % DES Comment: Interpretive Data Percent cell count reference ranges are not reported, since discordance with absolute values may lead to misinterpretation of CBC data. Current Interpretive Data was last revised on 2017. Testing performed by: [address] [address] Blood 06/18/2022 2:35 PM FIELD ORGANIZER 06/18/2022 2:45 PM FIELD ORGANIZER us Evelyn Cheema MD LAB BLOOD ORDERABLES F inal Result DES [address] [facility] Department of Laboratories [place], [place] [id number] * Lipase (06/18/2022 2:35 PM FIELD ORGANIZER) Lipase 34 5 - 50 Units/L DES Comment:Testing performed by : [address] [address] Blood 06/18/2022 2:35 PM FIELD ORGANIZER 06/18/2022 2:45 PM FIELD ORGANIZER us Evelyn Cheema MD LAB BLOOD ORDERABLES F inal Result DES [address] [facility] Department [place] [address] * (ABNORMAL) Comprehensive metabolic panel (06/18/2022 2:35 PM FIELD ORGANIZER) Sodium 135 135 - 145 mmol/L DES Comment:Testing performed by : [address] [address] Potassium, pl 3.1(L) 3.3 - 4.9 mmol/L DES Comment:Testing performed by : [address] [address] Chloride 100 100 - 114 mmol/L DES Comment:Testing performed by : [address] [address] CO2 28 20 - 30 mmol/L DES Comment:Testing performed by : [address] [address] Anion gap 7 2 - 15 mmol/L DES Comment:Testing performed by : [address] [address] BUN 9 9 - 18 mg/dL DES Comment:Testing performed by : [address] [address] Creatinine 0.70 0.40 - 1.00 mg/dL DES Comment:Testing performed by : [address] [address] Glucose 106 70 - 199 mg/dL DES Comment: Interpretive Data Fasting glucose >/= 126 [...] Current interpretive data was last revised 2017. Testing performed by: [address] [address] Calcium 9.2 8.5 - 10.3 mg/dL DES Comment:Testing performed by : [address] [address] Bilirubin, total 0.8 0.1 - 1.2 mg/dL DES Comment:Testing performed by : [address] [address] Protein, pl 6.7 6.5 - 8.5 g/dL DES Comment:Testing performed by : [address], [address] Albumin 4.2 3.2 - 5.0 g/dL DES Comment:Testing performed by : [address] [address] Alk phos 50(L) 70 - 260 Units/L DES Comment:Testing performed by : [address] [address] ALT 14 7 - 45 Units/L DES Comment:Testing performed by : [address] [address] AST 33 10 - 50 Units/L DES Comment:Testing performed by : [address] [address] Blood 06/18/2022 2:35 PM FIELD ORGANIZER 06/18/2022 2:45 PM FIELD ORGANIZER us Evelyn Cheema MD LAB BLOOD ORDERABLES F inal Result [facility] [address] [facility] Department [place] [address] * (ABNORMAL) CBC with auto differential (06/18/2022 2:35 PM FIELD ORGANIZER) [facility] WBC 6.8 3.8 - 9.9 K/cumm DES Comment:Testing performed by : [address] [address] Hgb 11.8(L) 11.9 - 15.5 g/dL DES Comment:Testing performed by : [address] [address] Hct 35.7 35.6 - 45.5 % DES Comment:Testing performed by : [address] [address] Plt 174 150 - 400 K/cumm DES Comment:Testing performed by : [address] [address] MPV 11.5 9.1 - 12.3 fL DES Comment:Testing performed by : [address], [address] RBC 4.27 3.90 - 5.20 M/cumm DES Comment:Testing performed by : [address] [address] MCV 83.6 81.3 - 96.4 fL DES Comment:Testing performed by : [address] [address] MCH 27.6 27.1 - 33.3 pg DES Comment:Testing performed by : [address], [address] MCHC 33.1 32.3 - 35.7 g/dL DES Comment:Testing performed by : [address] [address] RDW CV 13.5 11.1 - 14.9 % DES Comment:Testing performed by : [address] [address] RDW SD 40.9 35.7 - 48.1 fL DES Comment:Testing performed by : [address] [address] NRBC abs 0.00 0.00 - 0.01 K/cumm DES Comment:Testing performed by : [address] [address] Blood 06/18/2022 2:35 PM FIELD ORGANIZER 06/18/2022 2:45 PM FIELD ORGANIZER us Evelyn Blue Anette MD LAB BLOOD ORDERABLES F inal Result EDS [address] [facility] Department [place] [address] documented in this encounter Visit Diagnoses Diagnosis Influenza A- Primary Influenza with other respiratory manifestations Dysmenorrhea documented in this encounter Administered Medications Inactive Administered Medications - up to 3 most recent administrations Medication Order MAR Action Action Date Dose Rate Site ioversoL (OPTIRAY 350) syringe 100 mL 100 mL (2.16 mL/kg), intravenous, Once in imaging, contrast, Starting on Tue06/18/22 at 1612, For 1 dose Contrast Given 06/18/2022 4:12 PM FIELD ORGANIZER 75 mL ketorolac (TORADOL) 30 mg/mL (1 mL) injection 15 mg 15 mg (0.324 mg/kg), intravenous, Once, On Tue06/18/22 at 1705, For 1 dose, For Adult IV push, administer over 15 seconds Given 06/18/2022 5:15 PM FIELD ORGANIZER 15 mg metoclopramide (REGLAN) injection 10 mg 10 mg (0.216 mg/kg), intravenous, Administer over 1 Minutes, Once, On Tue06/18/22 at 1703, For 1 dose Given 06/18/2022 5:11 PM FIELD ORGANIZER 10 mg ondansetron (ZOFRAN) injection 4 mg 4 mg (0.0864 mg/kg), intravenous, Administer over 2 Minutes, Once, On Tue06/18/22 at 1359, For 1 dose Given 06/18/2022 2:39 PM FIELD ORGANIZER 4 mg Right Antecubital sodium chloride 0.9% bolus 1,000 mL 1,000 mL (21.6 mL/kg), intravenous, Once, On Tue06/18/22 at 1359, For 1 dose New Bag 06/18/2022 2:38 PM FIELD ORGANIZER 1,000 mL Right Antecubital sodium chloride 0.9% bolus 500 mL 500 mL (10.8 mL/kg), intravenous, Once, On Tue06/18/22 at 1619, For 1 dose Restarted 06/18/2022 5:11 PM FIELD ORGANIZER documented in this encounter Discontinued Medications Medication Sig Discontinue Reason Start Date End Da te metoclopramide (REGLAN) 10 mg tablet Take 1 tablet (10 mg total) by mouth every 6 (six) hours as needed (nausea, vomiting) Reorder 06/18/2022 06/18/2022 documented as of this encounter Active and Recently Administered Medications Times are shown in FIELD ORGANIZER. Scheduled Medication Order 06/16/2022 06/17/2022 06/18/2022 ketorolac (TORADOL) 30 mg/mL (1 mL) injection 15 mg (COMPLETED) 15 mg (0.324 mg/kg), intravenous, Once, On Tue06/18/22 at 1705, For 1 dose, For Adult IV push, administer over 15 seconds 1715 (Given - Provid er: Fide Adkins RN) metoclopramide (REGLAN) injection 10 mg (COMPLETED) 10 mg (0.216 mg/kg), intravenous, Administer over 1 Minutes, Once, On Tue06/18/22 at 1703, For 1 dose 171 (Given - Provid er: Fide Adkins RN) ondansetron (ZOFRAN) injection 4 mg (COMPLETED) 4 mg (0.0864 mg/kg), intravenous, Administer over 2 Minutes, Once, On Tue06/18/22 at 1359, For 1 dose 1439 (Given - Provid er: Comfort Maharaj RN) sodium chloride 0.9% bolus 1,000 mL (COMPLETED) 1,000 mL (21.6 mL/kg), intravenous, Once, On Tue06/18/22 at 1359, For 1 dose 1438 (New Bag - Prov ider: Comfort Maharaj RN)1527 (Stopped - Provider: Allyson Minor RN) sodium chloride 0.9% bolus 500 mL 500 mL (10.8 mL/kg), intravenous, Once, On Tue06/18/22 at 1619, For 1 dose 1651 (Hold - Provide r: Allyson Minor RN - Reason: Other - Comment: Per MD Pappas)1711 (Restarted - Provider: Fide Adkins RN)1802 (Stopped - Provider: Allyson Minor RN) PRN Medication Order 06/16/2022 06/17/2022 06/18/2022 ioversoL (OPTIRAY 350) syringe 100 mL (COMPLETED) 100 mL (2.16 mL/kg), intravenous, Once in imaging, contrast, Starting on Tue06/18/22 at 1612, For 1 dose 1612 (Contrast Given - Provider: Dee Flores RT) documented in this encounter Orders Medications Ordered That Earle ht Not Have Been Administered Count Last Ordered Date First Ordered Date acetaminophen (TYLENOL) tablet 650 mg 1 IV Count Last Ordered Date First Orde red Date INSERT PERIPHERAL IV 1 06/18/2022 documented in this encounter Care Teams Medical Grade Shoemaker Relationship Specialty Start Date End Date No, Physician PCP - General 02/17/22 07/02/22 documented as of this encounter
--- OUTSIDE RECORDS SUMMARY | 2024-07-02 06:54 | XMS_ITS | Encounter Summary ---
Author Organization [facility] Healthcare Address [address] [place] [address] Care Team Providers Care Senior Informatica Developer Name Role Phone No, Physician Primary Care Provider [phone] Rita Lynn MD Primary Care Provider No, Physician Unavailable Reason for Visit * Reason Comments Chest Pain * Auth/Cert Specialty Diagnoses / Procedures Referred By Jeannine t Referred To Contact Diagnoses Chest pain, unspecified type Severely underweight adult Procedures N/A Referral ID Status Reason Start Date Expiration Date Visits Re quested Visits Authorized [id number] 1 1 Encounter Details Date Type Department Care Team (Latest Contact Info) Description 07/03/2022 8:28 AM BOTTLE FILLER - 07/13/2022 1:03 PM BOTTLE FILLER Hospital Encounter [facility] [address] [place] [address] Yayo Patterson MD [address] [place] [address] Ady Emanuel MD [address] [place] [address] Brent Abbott MD [address] [place] [address] Shanique Bazan MD [address] [place] [address] Grover Spaulding MD [address] [place] [address] Gita Duarte MD [address] [place] [address] Chest pain, unspecified type (Primary Dx); Severely underweight adult; Nausea and vomiting, unspecified vomiting type; Vision changes Discharge Disposition: Discharge to home or self care Social History Tobacco Use Types Packs/Day Years Used Date Smoking Tobacco: Some Days Vaping Tobacco Cessation:Ready to Q uit: Not Asked; Counseling Given: Not Answered Comments No Sex and Gender Information Value Date Recorded Sex Assigned at Not on file Legal Sex Female 7:29 PM BOTTLE FILLER Gender Identity Not on file Sexual Orientation Not on file documented as of this encounter Last Filed Vital Signs Vital Sign Reading Time Taken Comments Blood Pressure 110/77 07/13/2022 9:35 AM BOTTLE FILLER Pulse 93 07/13/2022 9:35 AM BOTTLE FILLER Temperature 36.6 ??C (97.9 ??F) 07/13/2022 9:35 AM CS T Respiratory Rate 16 07/13/2022 9:35 AM BOTTLE FILLER Oxygen Saturation 100% 07/13/2022 9:35 AM BOTTLE FILLER Inhaled Oxygen Concentration - - Weight 40.2 kg (88 lb 11.2 oz) 07/10/2022 3:12 A M BOTTLE FILLER Height 172.7 cm (5' 8 ) 07/03/2022 7:45 PM BOTTLE FILLER Body Mass Index 13.49 07/03/2022 7:45 PM BOTTLE FILLER Body Mass Index Percentile 0.00% 07/10/2022 3:1 2 AM BOTTLE FILLER Growth Chart: CDC (Girls, 2- 20 Years) documented in this encounter Discharge Summaries * Gita Duarte MD - 07/13/2022 1:03 PM CST Inpatient Discharge Summary BRIEF OVERVIEW Admitting Provider: Yayo Patterson MD Discharge Provider: No att. providers found Primary Care Physician at Discharge: Rita Lynn MD [phone] Admission Date: 07/03/2022 Discharge Date: 07/13/2022 Admission Location: [facility] Problems/Diagnoses: Principal Problem: Nausea & vomiting Active [...] hematochezia, urinary symptoms. She originally presented to [facility], though left AMA on 07/01 due to perceived poor care - subsequently presenting to [facility] on the same day with unremarkable labs/workup. [...] MD Specialty: Pediatrics Relationship: PCP - General [address] [address] Next Steps: Follow up LE FILLER documented in this encounter Discharge Instructions * Discharge Instructions* Gita Duarte MD - 07/13/2022 12:33 PM BOTTLE FILLER Take zofran (ondansetron) 30 minutes before each meal to help prevent nausea. You will also be prescribed a scopolamine patch which you will need to switch out every 3 days. Take miralax once a day for your constipation. LE FILLER LE FILLER * Discharge Instr - Other Orders* Shelby Griggs RN - 07/09/2022 4:29 PM BOTTLE FILLER This is the earliest available follow up appointment with your PCP. Please bring this discharge paperwork, a list of home medications, your insurance card and photo ID to your appointment. Please arrive 15 minutes prior to your appointment and make sure you wear a mask. If you are unable to keep this appointment, it is very important you call to reschedule. LE FILLER * Attachments The following attachments cannot be sent through Care Everywhere. * Cyclic Vomiting Syndrome in Children (News Production Supervisor) (Nauruan) documented in this encounter Medications at Time [...] Age: 17 y.o. female Admit: 07/03/2022 Bed: [place] [id number] Subjective Interval History: Reports no n/v over [...] BUE & BLE strength. Intact FNF & [id number], normal gait Psych: Appropriate mood/affect. No SI/HI. [...] Hold supplementation Severe malnutrition (CMS/HCC) ([facility]) Assessment & Plan Patient with chronically low [...] it only happens after vomiting or gagging. LE FILLER * Vida Stevens RN - 07/13/2022 12:51 [...] No additional needs noted at this time. LE FILLER * Vida Stevens RN - 07/13/2022 12:47 PM CST 07/05/22 1125 Communications Important Message from Medicare notice given to patient? Not Applicable AYALA letter given? Not Applicable Patient choice (Home Health/Hospice) list given to patient/student services representative? Not Applicable Prison Facility list given to patient/student services representative? Not Applicable Fiduciary Responsibility Patient/Designated decision maker was informed of [facility] fiduciary relationship as necessary LE FILLER * Grover Spaulding MD - 07/12/2022 1:50 PM CST Daily Progress Note Division of Hospital Medicine Name: Isabel Churchill Today: July 12, 2022 : 2005 Age: 17 y.o. female Admit: 07/03/2022 Bed: [id number] Subjective Interval History: - tolerating tube feeds [...] Hold supplementation Severe malnutrition (CMS/HCC) ([facility]) Assessment & Plan Patient with chronically low [...] and keeps food down. Grover Spaulding MD LE FILLER * Grover Spaulding MD - 07/11/2022 10:31 AM CST Daily Progress Note Division of Hospital Medicine Name: Isabel Churchill Today: July 11, 2022 : 2005 Age: 17 y.o. female Admit: 07/03/2022 Bed: [id number] Subjective Interval History: - still having episodes [...] Hold supplementation Severe malnutrition (CMS/HCC) ([facility]) Assessment & Plan Patient with chronically low [...] evaluation of eating disorder Grover Spaulding MD LE FILLER LE FILLER * Grover Spaulding MD - 07/10/2022 9:49 AM CST Daily Progress Note Division of Hospital Medicine Name: Isabel Churchill Today: July 10, 2022 : 2005 Age: 17 y.o. female Admit: 07/03/2022 Bed: [id number] Subjective Interval History: - patient is feeling [...] Hold supplementation Severe malnutrition (CMS/HCC) ([facility]) Assessment & Plan Patient with chronically low [...] and esophagus are unremakable Grover Spaulding MD LE FILLER * Grover Spaulding MD - 07/09/2022 3:33 PM CST Daily Progress Note Division of Hospital Medicine Name: Isabel Churchill Today: July 09, 2022 : 2005 Age: 17 y.o. female Admit: 07/03/2022 Bed: [place] [address] [address] Subjective Interval History: - episode of left [...] and esophagus are unremakable Grover Spaulding MD LE FILLER * Angelica Barnes RN - 07/09/2022 11:58 [...] signs of distress. Will continue to monitor LE FILLER * Grover Spaulding MD - 07/08/2022 4:39 PM CST Daily Progress Note Division of Hospital Medicine Name: Isabel Churchill Today: July 08, 2022 : 2005 Age: 17 y.o. female Admit: 07/03/2022 Bed: [id number] Subjective Interval History: - pathology from esophagus, [...] EEG Extended EEG Report Patient Name: Isabel Cuhrchill [facility] Medical Record Number (MRN): [id number] [facility] Record: No Soarian MRN Date of (): [...] 32 channel EEG recording acquired on a [employer] EEG-1200 acquisition system. Scalp electrodes were placed [...] and esophagus are unremakable Grover Spaulding MD LE FILLER * Amparo Carmen, PT - 07/08/2022 3:44 [...] home Prior Function Prior Function Level of [place]: Independent functional transfers, Independent with ambulation Lives [...] Physical Therapy) Active Problems Not on file LE FILLER * Kelly Fam, OT - 07/08/2022 3:40 PM CST Occupational Therapy 07/08/22 1209 General Subjective Comment Occupational therapy orders received and chart reviewed. Patient educated on purpose of OT consult and benefits of therapy. Patient voiced understanding and states she's been performing all self care and mobility independently since admission and denies any concerns to warrant OTassessment. Will complete orders. MD notified. OT Missed Visit Reason Patient declined LE FILLER * Grover Spaulding MD - 07/07/2022 4:03 PM CST Daily Progress Note Division of Hospital Medicine Name: Isabel Churchill Today: July 07, 2022 : 2005 Age: 17 y.o. female Admit: 07/03/2022 Bed: [id number] Subjective Interval History: -EGD was done today [...] Extended EEG Report Patient Name: Isabel Churchill [facility] Medical Record Number (MRN): [id number] [facility] Record: Moraima Mascorro MRN Date of (): 2005 EEG Date: [...] 32 channel EEG recording acquired on a [employer] EEG-1200 acquisition system. Scalp electrodes were placed [...] Hold supplementation Severe malnutrition (CMS/HCC) ([facility]) Assessment & Plan Patient with chronically low [...] from stomach and esophagus. Grover Spaulding MD LE FILLER * Anna Feliciano, RD - 07/07/2022 2:10 [...] hematochezia, urinary symptoms. She originally presented to [facility], though left AMA on 07/01 due to perceived poor care - subsequently presenting to [facility] on the same day with unremarkable labs/workup. [...] Clear Liquid Diet effective now Question: ([facility]) Diet type Answer: Clear Liquid 07/07/22 1327 [...] Weight changes, Electrolyte changes Anna Feliciano RD [phone] * Jamal Claros 07/07/2022 11:40 AM CST Spiritual Care Note Chaplain Jamal Claros D.Min., ESTEFANI 07/07/2022 1140 hrs 07/07/22 1130 Time Spent Start Time 1130 Stop Time 1140 Time Calculation (min) 10 min Patient Spiritual Assessment Spirituality Assessed Focus of Care Clinical Encounter Type Visited With Family;Patient not available (Pt at testing) Response Type Routine visit Routine Visit Introduction Reason for visit Support Referral From Nurse Referral To Director Emergency Department Outcomes and Progress Demonstrating care and respect Achieved Interventions Interventions Offer emotional support Plan Future Plan Director Emergency Department will make a follow-up visit. LE FILLER * Kati Hazel, PT - 07/07/2022 11:00 AM CST Physical Therapy 07/07/22 1100 General PT Missed Visit Reason Procedure/testing/appointment;Unavailable Other Comments Other PT Comments In AM Pt. declined; awaiting endoscopy- asked PT to return later. PM pt. showering. Per RN pt. is mobilizing independently in room LE FILLER * Grover Spaulding MD - 07/06/2022 4:11 PM CST Daily Progress Note Division of Hospital Medicine Name: Isabel Churchill Today: July 07, 2022 : 2005 Age: 17 y.o. female Admit: 07/03/2022 Bed: [id number] Subjective Interval History: - persistent episodes of [...] Extended EEG Report Patient Name: Isabel Churchill [facility] Medical Record Number (MRN): [id number] [facility] Record: No Sotate MRN Date of (): [...] 32 channel EEG recording acquired on a [employer] EEG-1200 acquisition system. Scalp electrodes were placed [...] Hold supplementation Severe malnutrition (CMS/HCC) ([facility]) Assessment & Plan Patient with chronically low [...] from stomach and esophagus. Grover Spaulding MD LE FILLER * Amparo Carmen, PT - 07/05/2022 3:36 PM CST Physical Therapy Cancel 07/05/22 4076 General PT Missed Visit Reason Patient declined (pt declined, not giving a real reason as to why; denies nausea; states she is walking around her room with her grandmother) LE FILLER * Rosmery Esqueda, BUSINESS RECORDS MANAGER - 07/05/2022 11:25 AM CST CM Initial [...] No (Transport per family at discharge) (07/05/22 112) Health Insurance Coverage: Managed medicaid-[facility] Prescription Coverage: yes Pharmacy: [facility] [place] Primary Care Provider: verified with patient Rita Lynn MD Prior to Admission: Primary Caregiver: Self Who does the patient or legal guardian want to receive education instruction and discharge plans for after care assistance?: Name Caregiver Name: Tony Churchill Relationship to patient: mother Support System: Family members Support system contact info (name, phone, availablity): Zee Keys (grandmother) [phone] Home Care Services: No Durable Medical Equipment: None Living Arrangements: Alone Type of Residence: Apartment Steps in home? : No steps inside or outside (07/03/22 1900) SPotential discharge needs include: No needs anticipated at time of assessment. Case management will continue to follow this patient through admission and address needs as they arise. Dialysis: no Behavioral Health Services: Behavioral Health Services: No (07/05/22 112) Patient expects to be Discharged to: Private residence, (07/05/22 112) Additional Information: The patient's name, date of [...] Collaboration with patient, MD, direct care nurse, Senior Mobile Solutions Architect, and other members of the health care team to assure needed interventions completed. 2. Return patient to optimal level of self-care post discharge. 3. Slag Skimmer will follow for Discharge Planning - interventions [...] with the aftercare plan. Rosmery Esqueda Float Slag Skimmer [phone] For emergency needs after 4:30 pm, please call the forge shop supervisor [phone]. For weekend/holiday needs from 8:00a.m. - 4:30p.m., please call the Weekend Slag Skimmer . LE FILLER * Shanique Bazan MD - 07/05/2022 10:25 AM CST Daily Progress Note Division of Hospital Medicine Name: Isabel Churchill Today: July 05, 2022 : 2005 Age: 17 y.o. female Admit: 07/03/2022 Bed: [place] [id number] Subjective Chief complaint: nausea Interval History: persistent [...] 75 mL/hr, Last Rate: 75 mL/hr (07/05/22 0966) PRN: ??? acetaminophen ??? baclofen ??? calcium [...] repeat level Severe malnutrition (CMS/HCC) ([facility]) Assessment & Plan Patient with chronically low [...] - Trial lidocaine patch, tylenol - PT/OT LE FILLER * Shanique Bazan MD - 07/04/2022 11:53 AM CST Daily Progress Note Division of Hospital Medicine Name: Isabel Churchill Today: July 04, 2022 : 2005 Age: 17 y.o. female Admit: 07/03/2022 Bed: [place] [address] [address] Subjective Chief complaint: vomiting, muscle twitching/spasm Interval [...] - Trial lidocaine patch, tylenol - PT/OT LE FILLER documented in this encounter H&P Notes * Asad Marquis MD - 07/03/2022 8:50 PM CST History and Physical Division of Hospital Medicine Name: Isabel Churchill [...] hematochezia, urinary symptoms. She originally presented to [facility], though left AMA on 07/01 due to perceived poor care - subsequently presenting to [facility] on the same day with unremarkable labs/workup. [...] have reviewed and summarized prior records in [employer], [employer], and [facility] Everywhere. History reviewed. No pertinent past medical [...] Max: 100 % Most Recent Vitals: Vitals: 07/03/22 2138 BP: Pulse: 78 Resp: Temp: SpO2: Intake/Output Summary (Last 24 hours) at 07/03/2022 2207 Last data filed at 07/03/2022 1643 Gross [...] tylenol - PT/OT Asad Marquis MD Hospitalist LE FILLER documented in this encounter Procedure Notes * Brittnee Babb MD - 07/07/2022 11:25 AM CSTAssociated Order(s): EGD GI ENDOSCOPY [facility] Patient Name: Isabel Churchill Procedure Date: 07/07/2022 11:25 AM Date of : 2005 Admit Type: Inpatient Age: 17 Gender: Female Attending MD: Brittnee Babb M.D. Room: [facility] ENDOSCOPY ROOM 9 Note Status: Finalized Procedure: Upper GI endoscopy Indications: Epigastric abdominal pain, Anorexia, Nausea with vomiting Referring MD: Tay Faria M.D., Rita Lynn M.D., Grover Spaudling M.D. Providers: Brittnee Babb M.D. Medicines: Monitored [...] anesthesia care under the supervision of a TRIM MASTER OPERATOR was determined to be medically necessary for this procedure based on review of the patient's medical history, medications, and prior anesthesia history. The benefits, risks, and alternatives to the procedure and sedation were discussed and informed consent was obtained. The scope was passed under direct vision. The GIF [id number] endoscope was introduced through the mouth, and [...] the days following this procedure please call [phone]. After hours and evenings please call [phone] and speak to the GI fellow environmental field services technician. Please tell the fellow that Dr. Babbdid [...] On: 07/07/2022 11:25 AM Recognized by the [employer] for promoting quality in endoscopy LE FILLER documented in this encounter Consult Notes * [...] her mother, Miguel Churchill, was contacted at [phone] with the patient'sverbal permission - review of the EMR, including the 2nd [facility] chart under - [facility] website- no results GUARDIANSHIP: No CHIEF COMPLAINT: [...] she is tolerating TF. DDx per GI mgmt consultant includes MJ hyperemesis syndrome vs viral [...] weight. She wants to run track this Sp ring but knows she cannot do that [...] drank apple juice during the conversation with this w riter. Compared to her symptoms on admission, she [...] thoughts or attempts. She has never received mental health treatment before. 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 Hobbies: planning to run track this [...] cause recurrent GI symptoms. 3. Continued weight zoroastrian is per the primary team. No specific eating disorder treatment is indicated at this time. Thank you for this consultation. Psychiatry will sign off now. For questions or concerns during business hours, please contact the Psych Consults B provider signed in to [employer]. For urgent issues afterhours, please call the psych consult pager. Belkis Bojorquez APRN, PMHNP-BC Cosigned by Farooq Elizalde MD at 07/13/2022 1:41 PM BOTTLE FILLER LE FILLER LE FILLER * Gretta Bowers MD - 07/12/2022 11:41 [...] Keara Wild MD at 07/12/2022 5:10 PM BOTTLE FILLER LE FILLER LE FILLER Associated attestation - Keara Wild MD - 07/12/2022 5:10 PM BOTTLE FILLER I have seen and examined the patient [...] responded to anti-nausea medication. * Rosmery Roque, RD - 07/11/2022 2:36 PM CSTAssociated Order(s): IP [...] hematochezia, urinary symptoms. She originally presented to [facility], though left AMA on 07/01 due to perceived poor care - subsequently presenting to [facility] on the same day with unremarkable labs/workup. [...] Diet Regular Diet effective now Question: ([facility]) Diet type Answer: Regular 07/09/22 0833 07/05/22 [...] Stool patterns, Weight changes, Electrolyte changes Rosmery Fuentes MS RDN, [facility], [place] [phone] LE FILLER * Anna Feliciano RD - 07/05/2022 2:52 PM CSTAssociated Order(s): IP [...] hematochezia, urinary symptoms. She originally presented to [facility], though left AMA on 07/01 due to perceived poor care - subsequently presenting to [facility] on the same day with unremarkable labs/workup. [...] Diet effective now Question Answer Comment ([facility]) Diet type Restricted Modified Consistency: Mechanical Soft 07/05/22 0950 Impression: Pt seen this afternoon. Pt rocking in bed. C/O nausea. Pt talking to her mother on the phone. The pt states she has been eating poorly and not keeping food down for 3 weeks. States she has nausea and vomiting around the clock. Mother concurs and states she has been offering the pt Ensure, Pedialyte and soups at home. The pt states her UBW is 110 lbs and states she has never weighed more than 110lbs. She reports a 10 lb wt loss over the past 3 weeks. Her current wt is 88 lbs. She weighed 102 lbs in February 2021. The pt is very thin. Deferred nutrition focused physical exam at this time. Pt's mother states the pt had been eating a typical teenage diet prior to 3 weeks ago. Pt enjoys Bizzbys. Last BM 3 days ago. Labs: BMP, [...] Weight changes, Electrolyte changes Anna Feliciano RD [phone] LE FILLER * Lucius Nguyen MD - 07/05/2022 10:28 [...] marijuana daily. The patient originally presented to [facility] but left AMA on 07/01 due to perceived poor care, subsequently presented to [facility] in same-day with unremarkable labs [...] note, the patient presented in 02/26/2021 to [facility] with intermittent epigastric abdominal pain [...] Rad Talley MD at 07/06/2022 12:22 AM BOTTLE FILLER LE FILLER LE FILLER Associated attestation - Rad Talley MD - 07/06/2022 12:22 AM BOTTLE FILLER I have seen and examined the patient [...] ramelteon, 8 mg, 8 mg at 07/03/22 8811 REVIEW OF SYSTEMS A complete review of [...] the interim, please contact neurology consults at [phone] (senior) and specify that this consult was staffed with Consult Team B. Ayla Iverson MD PGY-1 Addendum: On rounds, patient noted to have increased tone in LUE and LLE. Also complaining of intermittently blurred vision. Would additionally recommend Brain MRI WWO to evaluate these visual issues. Cosigned by Zain Schwab MD at 07/04/2022 10:31 PM BOTTLE FILLER LE FILLER LE FILLER LE FILLER Associated attestation - Zain Schwab MD - 07/04/2022 10:31 PM BOTTLE FILLER Attending Documentation: I have seen and examined the patient on 07/04/22. I have reviewed and discussed the above note with the resident/fellow and agree with the findings and plan as documented. Zain Schwab MD, MSc documented in this encounter Nursing Notes * Bridgette Santiago, RN - 07/11/2022 6:35 AM CST 07/11/22 0500 Notification Reason for Communication Status update (has not had a bm since 07/03.) Name of Person Notified Jaclyn Fisher Role of Person Notified Resident Method of Communication Call Response No new orders (will pass it on to day team) Notification Time 0634 LE FILLER * Filomena Orozco RN - 07/07/2022 2:00 PM CST Pt refused post procedure VS intervals. LE FILLER * Bridgette Santiago RN - 07/06/2022 11:23 PM CST 07/06/22 2329 Notification Reason for Communication Status update (No relief with Zofran. Plan to give Ativan) Name of Person Notified Hospitalist Role of Person Notified Resident Method of Communication Call Response No new orders Notification Time 2329 LE FILLER * Bridgette Santiago RN - 07/06/2022 10:15 PM CST 07/06/22 2215 Notification Reason for Communication Status update (Patient still nauseous) Name of Person Notified Hospitalist Role of Person Notified Resident Method of Communication Call Response See orders Notification Time 2215 Patient was found inducing vomiting by putting her fingers in the back of her throat. When asked, she reported that It's sitting in my chest, I want it out . Advised to stop and a 2nd dose Zofran was given. LE FILLER LE FILLER * Bridgette Santiago RN - 07/06/2022 8:00 PM CST 07/06/221999 Notification Reason for Communication Status update (patient c/o itchiness at iv insertion site.To add itching as indication for benadryl) Name of Person Notified Hospitalist Role of Person Notified Resident Method of Communication Call Response See orders Notification Time 1999 LE FILLER documented in this encounter ED Notes * [...] intermittent symptoms, has reportedly been seen at [facility], [facility], [facility] and worked up and discharged forthese [...] review is significant for AMA discharge from [facility] a few days ago secondary to perceived poor care. Has had intermittent fevers, chills. Denies diarrhea and dysuria. Denies weight loss but review of records also significant for about 12lbs of weight loss over last few months. She does not take eyvv-cjj-nipmiue control, no prior intra-abdominal surgeries. Denies drug use alcohol and tobacco. No known allergies. Family history significant for multiple members with hypertension diabetes. Mom with ovarian cancer. Maternal grandfather with prostate cancer. Maternal grandmother with [place] at age 89. No sudden cardiac . Per chart review: 05/01/2023 from [facility] ED: Chief Complaint : Vomiting and Abdominal Pain HPI : Isabel Churchill is a 17-year-old female who presents for evaluation of worsening abdominal pain with nausea vomiting over the past 3 weeks. Patient did leave AMA from [facility] today as shewas concerned with care [...] person, place, and time. Psychiatric: Comments: Tearful [facility] Medical Decision Making 17-year-old female presenting with 3 weeks of multiple complaints. Frail, concern for recent weightloss and now BMI 13. Has been worked up at multiple emergency rooms and admitted to [place] with recent AMA discharge. Differential at this [...] unusual for an 17 yo to have ACS/NJ, though is possible. Also consider biliary colic, pancreatitis, colitis, inflammatory bowel disease. Will check labs, get CT abdomen/pelvis, hydrate, assess for metabolic abnormality due to poor PO intake, check HCG to r/o . By: Yayo Patterson MD Time: 07/03 928 Comment: Reviewed records from 06/18 at [facility] weight was listed as 46 kg at that time, now down to 40 kg. She tested + for fluA at that time. By: Yayo Patterson MD Time: 07/03 1152 Comment: CT IMPRESSION: No CT correlate for acute abdominal pain. By: Jorge Degroot MD Chest pain, unspecified type Severely underweight adult Jorge Degroot MD Resident 07/03/221958 Cosigned by Yayo Patterson MD at 07/11/2022 3:03 PM BOTTLE FILLER LE FILLER LE FILLER Associated attestation - Yayo Patterson MD - 07/11/2022 3:03 PM BOTTLE FILLER I have seen and examined the patient on 07/03/2022. I agree with the findings and plan of care as documented in the resident's note. * Mirta Barnett RN - 07/03/2022 8:28 AM CST Bed: ED1-10 Expected date: Expected time: Means of arrival: Comments: Nandini Churchill Arlene Elizabeth, RN 07/03/22 0828 LE FILLER * Mirta Barnett RN - 07/03/2022 8:06 AM CST Pt comes with c/o chest pain that started 3 weeks ago and has gotten worse today. Pt also endorsingjaw pain that started today. Pt tearful in triage stating that she has been seen at multiple hospitals. Pt states nothing makes the chest pain better or worse LE FILLER documented in this encounter Miscellaneous Notes * [...] call the GI Fellow General Call [facility] phone number available on [facility]. Ifthe patient has been discharged, please call the gastroenterology appointments line at [phone] for questions regarding clinic/procedures follow up. Heriberto Virgen MD Gastroenterology Fellow Cosigned by Keara Wild MD at 07/14/2022 8:23 AM BOTTLE FILLER LE FILLER LE FILLER * Subjective & Objective - Gita Duarte MD - 07/13/2022 1:03 PM CST Daily Progress Note Division of Hospital Medicine Name: Isabel Churchill Today: July 13, 2022 : 2005 Age: 17 y.o. female Admit: 07/03/2022 Bed: [id number] Subjective Interval History: Reports no n/v over [...] BUE & BLE strength. Intact FNF & biam-xs-zemn, normal gait Psych: Appropriate mood/affect. No SI/HI. [...] this written report and agrees with it. LE FILLER * Plan of Care - Rebecca Avila RN - 07/12/2022 5:43 PM CST Goals: Clinical Goals for the Shift: ASSESS, VITALS,MEDS Summary: Problem: Nutritional: Goal: Dietary intake will improve Outcome: Progressing Goal: Ability to maintain a balanced intake and output will improve Outcome: Progressing LE FILLER * Plan of Care - Angelica Barnes RN - 07/11/2022 4:12 PM CST Goals: Clinical Goals for the Shift: monitor pain and nausea Summary: Problem: Nutritional: Goal: Dietary intake will improve Outcome: Progressing Goal: Ability to maintain a balanced intake and output will improve Outcome: Progressing LE FILLER * Plan of Care - Alyssa Khan RN - 07/11/2022 4:09 PM CST Weekend CM Note: Per medical team, Pt is not medically ready for discharge today. Please call covering weekend CM for any needs. LE FILLER * Plan of Care - Angelica Barnes RN - 07/10/2022 1:40 [...] 1004 by Angelica Barnes RN Outcome: Progressing LE FILLER * Plan of Care - Angelica Barnes [...] of discharge needs will improve Outcome: Progressing LE FILLER * Plan of Care - Shelby Griggs [...] assistance, please check the treatment team in [facility] for the assigned briefcase sewer or contact the weekend Case Management phone, LE FILLER * Medical Student - Mary Kate Hillman - 07/09/2022 11:53 AM CST Daily Progress Note Division of Hospital Medicine Name: Isabel Churchill Today: July 09, 2022 : 2005 Age: 17 y.o. female Admit: 07/03/2022 Bed: [place] [address]/[place] [address] Subjective Chief complaint: nausea Interval History: Pt [...] Extended EEG Report Patient Name: Isabel Churchill [facility] Medical Record Number (MRN): [id number] [facility] Record: No Soarian MRN Date of (): [...] 32 channel EEG recording acquired on a [employer] EEG-1200 acquisition system. Scalp electrodes were placed [...] regarding a trial of topical capsaicin (PMID: [id number]) Acute dystonic reaction due to drugs Assessment [...] Grover Spaulding MD at 07/09/2022 4:56 PM BOTTLE FILLER LE FILLER LE FILLER * Plan of Care - Angelica Barnes [...] of discharge needs will improve Outcome: Progressing LE FILLER * Plan of Care - Marianne Frost [...] grandmother deny further concerns/questions at this time. LE FILLER * Plan of Care - Filomena Orozco [...] of discharge needs will improve Outcome: Progressing LE FILLER * Consults, Subsequent - Gretta Bowers MD - 07/08/2022 1:46 PM BOTTLE FILLER Brief GI Update 17 y/o F no [...] N/V Gretta Bowers MD PhD Gastroenterology Fellow LE FILLER * Plan of Care - Shelby Griggs [...] retains patient within the continuum of care Slag Skimmer will continue to follow and assist with discharge planning as needed DANI Dela Cruz, project scheduler For case management needs from 4:31 PM - 7:59 AM, please call the forge shop supervisor at telephone number: [phone] For weekend/holiday needs from the hours of 8:00 AM to 4:30 PM, please call the weekend briefcase sewer at telephone number: [phone] LE FILLER * Medical Student - Mary Kate Hillman - 07/08/2022 1:08 PM CST Daily Progress Note Division of Hospital Medicine Name: Isabel Churchill Today: July 08, 2022 : 2005 Age: 17 y.o. female Admit: 07/03/2022 Bed: [place] [id number] Subjective Chief complaint: nausea Interval History: No [...] Extended EEG Report Patient Name: Isabel Churchill [facility] Medical Record Number (MRN): [id number] [facility] Record: No Soarian MRN Date of (): [...] 32 channel EEG recording acquired on a [employer] EEG-1200 acquisition system. Scalp electrodes were placed [...] regarding a trial of topical capsaicin (PMID: [id number]) Acute dystonic reaction due to drugs Assessment [...] Grover Spaulding MD at 07/09/2022 4:56 PM BOTTLE FILLER LE FILLER LE FILLER LE FILLER * Provider Query - Grover Spaulding MD - 07/08/2022 1:03 PM BOTTLE FILLER Clinical Indicators/Treatments: Patient presented with multiple complaints [...] Clinically unable to determine Additional Provider Response: [employer] Cachexia [...] No 5; March 2021; pp [phone]; 2020 [facility] for Parenteral and Enteral Nutrition. Use of terms such as likely, suspected, possible, or probable (associated with a specific diagnosisthat is being evaluated, monitored, or treated as if it exists) are acceptable and can be coded in the inpatient setting when documented at the time of discharge. This documentation will become part of the patient???s medical record. LE FILLER * Plan of Care - Filomena Orozco [...] discharge needs will improve Outcome: Not Progressing LE FILLER * Assessment & Plan Note - Gita [...] finding. - May consider ophtho referral outpatient LE FILLER LE FILLER LE FILLER LE FILLER LE FILLER * Assessment & Plan Note - Gita [...] Will plan to remove NG tube today. LE FILLER LE FILLER LE FILLER LE FILLER * Assessment & Plan Note - Gita [...] with anti- emetics, patient agreeable with plan. LE FILLER LE FILLER LE FILLER LE FILLER LE FILLER LE FILLER LE FILLER * Assessment & Plan Note - Grover Spaulding MD - 07/07/2022 4:09 PM BOTTLE FILLER Associated Problem(s): High serum vitamin B12 Hold supplementation LE FILLER * Assessment & Plan Note - Grover Spaulding MD - 07/07/2022 4:09 PM BOTTLE FILLER Associated Problem(s): Chest pain, unspecified type (Resolved 07/14/2022) Likely musculoskeletal in since it only happens after vomiting or gagging. LE FILLER LE FILLER * Assessment & Plan Note - Grover Spaulding MD - 07/07/2022 4:08 PM BOTTLE FILLER Associated Problem(s): Acute dystonic reaction due to [...] IV Benadryl prn dystonia - symptoms resolved LE FILLER * Plan of Care - Shelby Griggs [...] with family support and medical follow up Slag Skimmer will continue to follow patient to establish a safe and comprehensive discharge plan DANI Dela Cruz, project scheduler For case management needs from 4:31 PM - 7:59 AM, please call the forge shop supervisor at telephone number: [phone] For weekend/holiday needs from the hours of 8:00 AM to 4:30 PM, please call the weekend briefcase sewer at telephone number: [phone] LE FILLER * Plan of Care - Yessica Tineo LCSW - 07/07/2022 2:05 PM CST SW met with pt at bedside to discuss mental health resources. Pt minimally engaged in conversation but agreeable to receiving printed counseling resources. SW left resource packet on pt's tray table per pt request. SW remains available if additional psychosocial needs are indicated prior to d/c. CARYL Orozco, ZAFAR See Epic care team for contact information. LE FILLER * Medical Student - Mary Kate Hillman - 07/07/2022 9:20 AM CST Daily Progress Note Division of [facility] Medicine Name: Isabel Churchill Today: July 07, 2022 : 2005 Age: 17 y.o. female Admit: 07/03/2022 Bed: [id number] Subjective Chief complaint: nausea Interval History: Last [...] Extended EEG Report Patient Name: Isabel Churchill [facility] Medical Record Number (MRN): [id number] [facility] Record: No Soarian MRN Date of (): [...] 32 channel EEG recording acquired on a [employer] EEG-1200 acquisition system. Scalp electrodes were placed [...] today - Cu, Pb level ordered - Zofran [...] Grover Spaulding MD at 07/09/2022 4:55 PM BOTTLE FILLER LE FILLER LE FILLER * Plan of Care - Norman Torre [...] of discharge needs will improve Outcome: Progressing LE FILLER * Plan of Care - Shelby Griggs [...] family agree with the plan for discharge. Slag Skimmer will continue to follow and assist with discharge planning as needed. If any further discharge needs arise, please contact the covering briefcase sewer. DANI Dela Cruz, project scheduler For case management needs from 4:31 PM - 7:59 AM, please call the forge shop supervisor at telephone number: [phone] For weekend/holiday needs from the hours of 8:00 AM to 4:30 PM, please call the weekend briefcase sewer at telephone number: [phone] LE FILLER * Plan of Care - Alfredo Martins [...] Pt in bed resting. Hs meds given. LE FILLER * Consults, Maria Del Carmen Rodriguez MD - 07/05/2022 3:24 PM BOTTLE FILLER Neurology Consult Follow-Up Note Requesting Provider: Shanique [...] Please call the neurology consult phone at [phone] (senior) with questions A referral has been placed for follow-up with Neurology at the [facility]. Please provide their number in the discharge instructions: [phone] The Neurology Consult Service will sign off at this time. Please call the Neurology Consult Senior phone ([phone]) with questions, and specify that this consult [...] Extended EEG Report Patient Name: Isabel Churchill [facility] Medical Record Number (MRN): [id number] [facility] Record: No Soarian MRN Date of (): [...] 32 channel EEG recording acquired on a [employer] EEG-1200 acquisition system. Scalp electrodes were placed [...] it. Electronically signed by: Beatrice Silva M.D. Maria Del Carmen Little MD Neurology Resident, PGY-3 07/05/2022 3:24 PM Assessment and Plan at the top of the note. LE FILLER * Plan of Care - Angelica Barnes RN - 07/05/2022 10:34 [...] of discharge needs will improve Outcome: Progressing LE FILLER * Assessment & Plan Note - Shanique Bazan MD - 07/05/2022 10:25 AM BOTTLE FILLER Associated Problem(s): Severe malnutrition (CMS/HCC) (HCC) Patient with chronically low BMI per chart review with current BMI 14 and reported 10 lb weight loss recently related to vomiting and poor po intake - RD consult - ADAT, Ensure TIDAC - Calorie Count LE FILLER * Assessment & Plan Note - Shanique Bazan MD - 07/05/2022 10:25 AM BOTTLE FILLER Associated Problem(s): Vitamin D deficiency 25 vit D on admission - started 50,000 units ergocalciferol qweek, plan x8w and repeat level LE FILLER * Assessment & Plan Note - Shanique Bazan MD - 07/05/2022 10:25 AM BOTTLE FILLER Associated Problem(s): High serum vitamin B12 Hold supplementation LE FILLER * Assessment & Plan Note - Shanique Bazan MD - 07/05/2022 10:22 AM BOTTLE FILLER Associated Problem(s): Acute dystonic reaction due to [...] Benadryl prn dystonia - symptoms improved today LE FILLER * Assessment & Plan Note - Shanique Bazan MD - 07/05/2022 10:22 AM BOTTLE FILLER Associated Problem(s): Facial spasm (Resolved 07/05/2022) Patient with onset of bilateral facial spasm over V3 regions, lasting ~1-2min. Ca, Mg, K wnl. limited concern for lesion as etiology given bilateral - Trial baclofen - checking Cu level LE FILLER * Assessment & Plan Note - Shanique Bazan MD - 07/05/2022 10:22 AM BOTTLE FILLER Associated Problem(s): Chest pain, unspecified type (Resolved 07/14/2022) - Constant of L upper chest/shoulder region - worse with palpation and arm movement - hs-trop/EKG unremarkable; suspect MSK in etiology - Trial lidocaine patch, tylenol - PT/OT LE FILLER * Assessment & Plan Note - Shanique Bazan MD - 07/05/2022 10:20 AM BOTTLE FILLER Associated Problem(s): Nausea & vomiting Patient presenting [...] PPI - Avoid cannabis - Consult GI LE FILLER LE FILLER LE FILLER * Subjective & Objective - Shanique Bazan MD - 07/05/2022 10:13 AM BOTTLE FILLER Daily Progress Note Division of Hospital Medicine Name: Isabel Churchill Today: July 05, 2022 : 2005 Age: 17 y.o. female Admit: 07/03/2022 Bed: [id number] Subjective Chief complaint: nausea Interval History: persistent [...] this written report and agrees with it. LE FILLER * Plan of Care - Alfredo Martins [...] dry heaving on and off all night. LE FILLER * Hospital Course - Gita Duarte MD [...] on discharge. Sent ophtho referral on discharge. LE FILLER LE FILLER LE FILLER LE FILLER LE FILLER LE FILLER LE FILLER LE FILLER LE FILLER LE FILLER LE FILLER LE FILLER * Significant Event - Shanique Bazan MD - 07/04/2022 1:14 PM BOTTLE FILLER Called to room by RN because patient [...] Bazan MD Instructor in Medicine Division of [facility] Medicine [facility] LE FILLER * Assessment & Plan Note - Shanique Bazan MD - 07/04/2022 11:53 AM BOTTLE FILLER Associated Problem(s): High serum vitamin B12 Hold supplementation LE FILLER * Assessment & Plan Note - Shanique Bazan MD - 07/04/2022 11:48 AM BOTTLE FILLER Associated Problem(s): Vitamin D deficiency 25 vit D on admission - started 50,000 units ergocalciferol qweek, plan x8w and repeat level LE FILLER * Subjective & Objective - Shanique Bazan MD - 07/04/2022 11:27 AM BOTTLE FILLER Daily Progress Note Division of [facility] Medicine Name: Isabel Churchill Today: July 04, 2022 : 2005 Age: 17 y.o. female Admit: 07/03/2022 Bed: [id number] Subjective Chief complaint: vomiting, muscle twitching/spasm Interval [...] follow up: further workup in the ED LE FILLER LE FILLER * Plan of Care - Angelica Barnes [...] Goal: Pain level will decrease Outcome: Progressing LE FILLER * Assessment & Plan Note - Asad Marquis MD - 07/03/2022 9:52 PM BOTTLE FILLER Associated Problem(s): Chest pain, unspecified type (Resolved 07/14/2022) - Constant of L upper chest/shoulder region - worse with palpation and arm movement - hs-trop/EKG unremarkable; suspect MSK in etiology - Trial lidocaine patch, tylenol - PT/OT LE FILLER * Assessment & Plan Note - Shanique Bazan MD - 07/03/2022 9:50 PM BOTTLE FILLER Associated Problem(s): Facial spasm (Resolved 07/05/2022) Patient with onset of bilateral facial spasm over V3 regions, lasting ~1-2min. Ca, Mg, K wnl. limited concern for lesion as etiology given bilateral - Trial baclofen - checking Cu level LE FILLER LE FILLER LE FILLER * Assessment & Plan Note - Shanique Bazan MD - 07/03/2022 9:44 PM BOTTLE FILLER Associated Problem(s): Abdominal pain (Resolved 07/05/2022) - [...] ongoing symptomatology with unremarkable workup - CTM LE FILLER LE FILLER LE FILLER LE FILLER LE FILLER * Assessment & Plan Note - Asad Marquis MD - 07/03/2022 9:44 PM BOTTLE FILLER Associated Problem(s): Vision changes - Patient reports intermittent blurry vision over both eyes over the past several days (not presentduring encounter) - Unclear etiology - possible orthostatic; given history concern for 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; limited concern for optic neuritis given bilateral involvement - CTM, consider head imaging and ophthalmology consult if recurrent/ongoing during admission LE FILLER LE FILLER LE FILLER * Assessment & Plan Note - Shanique Bazan MD - 07/03/2022 9:40 PM BOTTLE FILLER Associated Problem(s): Severe malnutrition (CMS/HCC) (HCC) Patient with chronically low BMI per chart review with current BMI 14 and reported 10 lb weight loss recently related to vomiting and poor po intake - RD consult - ADAT, Ensure TIDAC - Calorie Count LE FILLER LE FILLER * Assessment & Plan Note - Shanique Bazan MD - 07/03/2022 9:32 PM BOTTLE FILLER Associated Problem(s): Nausea & vomiting Patient presenting [...] PPI - Avoid cannabis - Check Utox LE FILLER LE FILLER LE FILLER LE FILLER LE FILLER * ED Re-evaluation Note - Salena Cormier MD - 07/03/2022 7:19 PM BOTTLE FILLER ED Re-evaluation TRANSITION OF CARE: I, Salena [...] unusual for an 17 yo to have ACS/NJ, though is possible. Also consider biliary colic, pancreatitis, colitis, inflammatory bowel disease. Will check labs, get CT abdomen/pelvis, hydrate, assess for metabolic abnormality due to poor PO intake, check HCG to r/o . By: Yayo Patterson MD Time: 07/03 0929 Comment: Reviewed records from 06/18 at [facility] weight was listed as 46 kg at that time, now down to 40 kg. She tested + for fluA at that time. By: Yayo Patterson MD Time: 07/03 1153 Comment: CT IMPRESSION: No CT correlate for acute abdominal pain. By: Jorge Degroot MD Final diagnoses: Chest pain, unspecified type Severely underweight adult Salena Cormier MD Resident 07/06/22 0852 LE FILLER * Plan of Care - Jasmyn Lomax RN - 07/03/2022 4:44 PM CST Pt remains in ED as a Boarder which means they have been waiting on a hospital bed assignment for > 4 hours - documentation was revaluated by ED CM and pt continues to meet medical necessity for hospital admission. LE FILLER * ED Procedure Note - Ish Espinal MD - 07/03/2022 8:25 AM BOTTLE FILLER Associated Order(s): ECG 12 lead Procedure ECG [...] the ED Ish Espinal MD 07/03/22 0825 LE FILLER documented in this encounter Plan of Treatment Not on file documented as of this encounter Procedures Procedure Name Priority Date/Time Associated Diagnosis Comments EGFR Timed 07/13/2022 9:32 AM BOTTLE FILLER COMPREHENSIVE METABOLIC PANEL Timed 9:32 AM BOTTLE FILLER EGFR Timed 07/12/2022 9:20 PM BOTTLE FILLER PHOSPHORUS Timed 07/12/2022 9:20 PM BOTTLE FILLER MAGNESIUM Timed 07/12/2022 9:20 PM BOTTLE FILLER COMPREHENSIVE METABOLIC PANEL Timed 9:20 PM BOTTLE FILLER EGFR Timed 07/12/2022 8:38 AM BOTTLE FILLER COMPREHENSIVE METABOLIC PANEL Timed 8:38 AM BOTTLE FILLER EGFR Timed 07/11/2022 10:54 PM BOTTLE FILLER COMPREHENSIVE METABOLIC PANEL Timed 10:54 PM BOTTLE FILLER XR ABDOMEN AP 1 VIEW ED Urgent/IP Urgent 07/11/2022 3:28 PM BOTTLE FILLER XR ABDOMEN AP 1 VIEW ED Urgent/IP Urgent 07/11/2022 11:25 AM BOTTLE FILLER EGFR Routine 07/11/2022 5:24 AM BOTTLE FILLER BASIC METABOLIC PANEL Routine 07/11/2022 5:24 AM BOTTLE FILLER EGFR Routine 07/10/2022 3:22 AM BOTTLE FILLER BASIC METABOLIC PANEL Routine 07/10/2022 3:22 AM BOTTLE FILLER XR CHEST 1 VIEW ED Urgent/IP Urgent 07/09/2022 2:00 PM BOTTLE FILLER ECG 12-LEAD Routine 07/09/2022 12:33 PM BOTTLE FILLER TROPONIN I HIGH-SENSITIVITY STAT 06/21 11:26 AM BOTTLE FILLER EGFR Routine 07/09/2022 5:21 AM BOTTLE FILLER BASIC METABOLIC PANEL Routine 07/09/2022 5:21 AM BOTTLE FILLER EGFR Routine 07/08/2022 6:23 AM BOTTLE FILLER BASIC METABOLIC PANEL Routine 07/08/2022 6:23 AM BOTTLE FILLER SURGICAL PATHOLOGY Routine 07/07/2022 11:35 AM BOTTLE FILLER Nausea and vomiting, unspecified vomiting type EGD 07/07/2022 11:25 AM BOTTLE FILLER ESOPHAGOGASTRODUODENOSCOPY BIOPSY 07/07/2022 11:22 AM BOTTLE FILLER Nausea and vomiting, unspecified vomiting type EGFR Routine 07/07/2022 6:48 AM BOTTLE FILLER LEAD, BLOOD Routine 07/07/2022 6:48 AM BOTTLE FILLER BASIC METABOLIC PANEL Routine 07/07/2022 6:48 AM BOTTLE FILLER PROTIME-INR Routine 07/06/2022 10:03 PM BOTTLE FILLER EGFR Routine 07/06/2022 3:39 AM BOTTLE FILLER COPPER, SERUM Routine 07/06/2022 3:39 AM BOTTLE FILLER BASIC METABOLIC PANEL Routine 07/06/2022 3:39 AM BOTTLE FILLER MRI BRAIN W WO CONTRAST IP Routine 07/05/19 1:38 PM BOTTLE FILLER EEG Routine 07/04/2022 4:[address] HEAD WO CONTRAST IP Routine 07/04/2022 1:56 PM BOTTLE FILLER HC GLIADIN ANTIBODY EACH IMMUNOGLOBULIN CLASS Timed 07/04/2022 5:41 AM BOTTLE FILLER EGFR Routine 07/04/2022 5:41 AM BOTTLE FILLER HIV 1/2 ANTIBODY PLUS P24 ANTIGEN Routine 07/04/2022 5:41 AM BOTTLE FILLER GLIADIN ANTIBODY, IGA Timed 07/04/2022 5:41 AM BOTTLE FILLER TISSUE TRANSGLUTAMINASE, IGA Timed 5:41 AM BOTTLE FILLER ERYTHROCYTE SEDIMENTATION RATE Timed 0 07/04/2022 5:41 AM BOTTLE FILLER PHOSPHORUS Routine 07/04/2022 5:41 AM BOTTLE FILLER MAGNESIUM Routine 07/04/2022 5:41 AM BOTTLE FILLER LEAD, BLOOD Routine 07/04/2022 5:41 AM BOTTLE FILLER BASIC METABOLIC PANEL Routine 07/04/2022 5:41 AM BOTTLE FILLER XR CHEST PA LATERAL 2 VIEWS ED 06/20 1:46 PM BOTTLE FILLER TROPONIN I HIGH-SENSITIVITY 2-HOUR Timed 07/03/2022 12:[address] ABDOMEN PELVIS W CONTRAST ED 11:30 AM BOTTLE FILLER DRUGS OF ABUSE SCREEN, URINE WITH REFLEX CONFIRMATION STAT 07/03/2022 10:30 AM BOTTLE FILLER HCG, URINE, QUALITATIVE STAT 07/03/19 23 10:30 AM BOTTLE FILLER POCT CREATININE - DEVICE Routine 023 10:23 AM BOTTLE FILLER URINALYSIS AND REFLEX TO MICROSCOPIC AND CULTURE STAT 07/03/2022 10:16 AM BOTTLE FILLER TROPONIN I HIGH-SENSITIVITY SERIES (BASELINE, 2HR, 4HR, 6HR) STAT 07/03/2022 10:15 AM BOTTLE FILLER EGFR STAT 07/03/2022 10:15 AM BOTTLE FILLER DIFFERENTIAL AUTO STAT 07/03/2022 10:15 AM BOTTLE FILLER THYROID FUNCTION CASCADE STAT 023 10:15 AM BOTTLE FILLER IRON PROFILE W/ IBC STAT 07/03/2022 10:15 AM BOTTLE FILLER RESPIRATORY PATHOGEN PANEL Routine 07/03 10:15 AM BOTTLE FILLER CBC WITH AUTO DIFFERENTIAL STAT 07/03 10:15 AM BOTTLE FILLER VITAMIN D 25 HYDROXY STAT 07/03/2022 10:15 AM BOTTLE FILLER CRP (ACUTE PHASE) STAT 07/03/2022 10:15 AM BOTTLE FILLER VITAMIN B1 Routine 07/03/2022 10:15 AM BOTTLE FILLER PHOSPHORUS Routine 07/03/2022 10:15 AM BOTTLE FILLER MAGNESIUM STAT 07/03/2022 10:15 AM BOTTLE FILLER LIPASE STAT 07/03/2022 10:15 AM BOTTLE FILLER IGA STAT 07/03/2022 10:15 AM BOTTLE FILLER FERRITIN STAT 07/03/2022 10:15 AM BOTTLE FILLER VITAMIN B12 STAT 07/03/2022 10:15 AM BOTTLE FILLER COMPREHENSIVE METABOLIC PANEL STAT 10:15 AM BOTTLE FILLER CALCIUM, IONIZED Routine 07/03/2022 9:42 AM BOTTLE FILLER ECG 12-LEAD STAT 07/03/2022 8:25 AM BOTTLE FILLER documented in this encounter Results * eGFR (07/13/2022 9:32 AM BOTTLE FILLER) [facility] eGFR >90 90 - 130 mL/min/1. 73 m2 [facility] Comment: Interpretive Data Reference Interval Normal ?>/= [...] last reviewed 2021. Blood 07/13/2022 9:32 AM BOTTLE FILLER 07/13/2022 9:56 AM BOTTLE FILLER Grover Spaulding MD LAB BLOOD ORDERABLES Final Resul t [facility] [place] [address] * (ABNORMAL) Comprehensive metabolic panel (07/13/2022 9:32 AM BOTTLE FILLER) Sodium 140 135 - 145 mmol/L [facility] Potassium, pl 4.4 3.3 - 4.9 mmol/L [facility] Chloride 101 97 - 110 mmol/L [facility] CO2 29 22 - 32 mmol/L [facility] Anion gap 10 2 - 15 mmol/L [facility] BUN 11 8 - 25 mg/dL [facility] Creatinine 0.87 0.40 - 1.00 mg/dL [facility] Glucose 94 70 - 199 mg/dL [facility] Comment: Interpretive Data Fasting glucose >/= 126 [...] 2022. Calcium 9.2 8.5 - 10.3 mg/dL [facility] Bilirubin, total 0.5 0.1 - 1.2 mg/dL [facility] Protein, pl 6.4(L) 6.5 - 8.5 g/dL [facility] Albumin 4.0 3.5 - 5.0 g/dL [facility] Alk phos 43(L) 70 - 260 Units/L [facility] ALT 12 7 - 45 Units/L [facility] AST 25 10 - 45 Units/L [facility] Blood 07/13/2022 9:32 AM BOTTLE FILLER 07/13/2022 9:56 AM BOTTLE FILLER Grover Spaulding MD LAB BLOOD ORDERABLES Final Resul t Performing Organization Address City/[facility] Co de Phone Number [facility] [place] [address] * Phosphorus (07/12/2022 9:20 PM BOTTLE FILLER) Pathologist [facility] Phosphorus, pl 3.5 2.3 - 4.5 mg/dL [facility] Blood 07/12/2022 9:20 PM BOTTLE FILLER 07/12/2022 9:59 PM BOTTLE FILLER us Gita Duarte MD LAB BLOOD ORDERABLES Final Resul t Performing Organization Address [facility] de Phone Number [facility] [place] [address] * Magnesium (07/12/2022 9:20 PM BOTTLE FILLER) [facility] Magnesium 2.0 1.4 - 2.5 mg/dL [facility] Blood 07/12/2022 9:20 PM BOTTLE FILLER 07/12/2022 9:59 PM BOTTLE FILLER Gita Duarte MD LAB BLOOD ORDERABLES Final Resul t Performing Organization Address [facility] Co de Phone Number [facility] [place] [address] * eGFR (07/12/2022 9:20 PM BOTTLE FILLER) [facility] eGFR >90 90 - 130 mL/min/1. 73 m2 [facility] Comment: Interpretive Data Reference Interval Normal ?>/= [...] last reviewed 2021. Blood 07/12/2022 9:20 PM BOTTLE FILLER 07/12/2022 9:59 PM BOTTLE FILLER us Grover Spaulding MD LAB BLOOD ORDERABLES Final Resul t [facility] [place] [address] * (ABNORMAL) Comprehensive metabolic panel (07/12/2022 9:20 PM BOTTLE FILLER) Sodium 138 135 - 145 mmol/L [facility] Potassium, pl 4.1 3.3 - 4.9 mmol/L [facility] Chloride 104 97 - 110 mmol/L [facility] CO2 28 22 - 32 mmol/L [facility] Anion gap 6 2 - 15 mmol/L [facility] BUN 10 8 - 25 mg/dL [facility] Creatinine 0.90 0.40 - 1.00 mg/dL [facility] Glucose 101 70 - 199 mg/dL [facility] Comment: Interpretive Data Fasting glucose >/= 126 [...] 2022. Calcium 8.9 8.5 - 10.3 mg/dL [facility] Bilirubin, total 0.6 0.1 - 1.2 mg/dL [facility] Protein, pl 6.2(L) 6.5 - 8.5 g/dL [facility] Albumin 3.9 3.5 - 5.0 g/dL [facility] Alk phos 47(L) 70 - 260 Units/L [facility] ALT 16 7 - 45 Units/L [facility] AST 24 10 - 45 Units/L [facility] Blood 07/12/2022 9:20 PM BOTTLE FILLER 07/12/2022 9:59 PM BOTTLE FILLER us Grover Spaulding MD LAB BLOOD ORDERABLES Final Resul t [facility] [place] [address] * (ABNORMAL) eGFR (07/12/2022 8:38 AM BOTTLE FILLER) eGFR 83(L) 90 - 130 mL/min/1. 73 m2 [facility] Comment: Interpretive Data Reference Interval Normal ?>/= [...] last reviewed 2021. Blood 07/12/2022 8:38 AM BOTTLE FILLER 07/12/2022 10:43 AM BOTTLE FILLER us Grover Spaulding MD LAB BLOOD ORDERABLES Final Resul t [facility] [place] [address] * (ABNORMAL) Comprehensive metabolic panel (07/12/2022 8:38 AM BOTTLE FILLER) Sodium 139 135 - 145 mmol/L [facility] Potassium, pl 4.0 3.3 - 4.9 mmol/L [facility] Chloride 100 97 - 110 mmol/L [facility] CO2 29 22 - 32 mmol/L [facility] Anion gap 10 2 - 15 mmol/L [facility] BUN 12 8 - 25 mg/dL [facility] Creatinine 1.01(H) 0.40 - 1.00 mg/dL [facility] Glucose 92 70 - 199 mg/dL [facility] Comment: Interpretive Data Fasting glucose >/= 126 [...] 2022. Calcium 9.1 8.5 - 10.3 mg/dL [facility] Bilirubin, total 1.0 0.1 - 1.2 mg/dL [facility] Protein, pl 6.3(L) 6.5 - 8.5 g/dL [facility] Albumin 3.9 3.5 - 5.0 g/dL [facility] Alk phos 38(L) 70 - 260 Units/L [facility] ALT 10 7 - 45 Units/L [facility] AST 19 10 - 45 Units/L [facility] Blood 07/12/2022 8:38 AM BOTTLE FILLER 07/12/2022 10:43 AM BOTTLE FILLER us Grover Spaulding MD LAB BLOOD ORDERABLES Final Resul t [facility] [place] [address] * eGFR (07/11/2022 10:54 PM BOTTLE FILLER) eGFR >90 90 - 130 mL/min/1. 73 m2 [facility] Comment: Interpretive Data Reference Interval Normal ?>/= [...] reviewed 2021. Blood 07/11/2022 10:5 4 PM BOTTLE FILLER 07/11/2022 11:22 PM BOTTLE FILLER us Grover Spaulding MD LAB BLOOD ORDERABLES Final Resul t [facility] [place] [address] * (ABNORMAL) Comprehensive metabolic panel (07/11/2022 10:54 PM BOTTLE FILLER) Sodium 139 135 - 145 mmol/L [facility] Potassium, pl 3.6 3.3 - 4.9 mmol/L [facility] Chloride 101 97 - 110 mmol/L [facility] CO2 30 22 - 32 mmol/L [facility] Anion gap 8 2 - 15 mmol/L [facility] BUN 10 8 - 25 mg/dL [facility] Creatinine 0.93 0.40 - 1.00 mg/dL [facility] Glucose 108 70 - 199 mg/dL [facility] Comment: Interpretive Data Fasting glucose >/= 126 [...] 2022. Calcium 9.0 8.5 - 10.3 mg/dL [facility] Bilirubin, total 1.2 0.1 - 1.2 mg/dL [facility] Protein, pl 6.4(L) 6.5 - 8.5 g/dL [facility] Albumin 4.0 3.5 - 5.0 g/dL [facility] Alk phos 38(L) 70 - 260 Units/L [facility] ALT 10 7 - 45 Units/L [facility] AST 22 10 - 45 Units/L [facility] Blood 07/11/2022 10:5 4 PM BOTTLE FILLER 07/11/2022 11:22 PM BOTTLE FILLER us Grover Spaulding MD LAB BLOOD ORDERABLES Final Resul t [facility] [place] [address] * XR Abdomen Ap 1 Vw (07/11/2022 3:28 PM BOTTLE FILLER) Anatomical Region Laterality Modality Body, Abdomen N/A Computed Radiogr aphy 07/12/2022 10:0 1 AM BOTTLE FILLER Impressions 07/12/2022 11:43 AM BOTTLE FILLER Two single view radiograph of the abdomen [...] Miguel Juan M.D. Narrative 07/12/2022 11:43 AM BOTTLE FILLER EXAMINATION: Two abdomen one view radiographs. HISTORY: [...] Abdomen Ap 1 Vw (07/11/2022 11:25 AM BOTTLE FILLER) Anatomical Region Laterality Modality Body, Abdomen N/A Computed Radiogr aphy 07/12/2022 10:0 1 AM BOTTLE FILLER Impressions 07/12/2022 11:43 AM BOTTLE FILLER Two single view radiograph of the abdomen [...] Miguel Juan M.D. Narrative 07/12/2022 11:43 AM BOTTLE FILLER EXAMINATION: Two abdomen one view radiographs. HISTORY: [...] Final Result * eGFR (07/11/2022 5:24 AM BOTTLE FILLER) [facility] eGFR >90 90 - 130 mL/min/1. 73 m2 [facility] Comment: Interpretive Data Reference Interval Normal ?>/= [...] last reviewed 2021. Blood 07/11/2022 5:24 AM BOTTLE FILLER 07/11/2022 5:54 AM BOTTLE FILLER us Shanique Bazan MD LAB BLOOD ORDERABLES Anjana andersen Result [facility] [place] [address] * Basic metabolic panel (07/11/2022 5:24 AM BOTTLE FILLER) [facility] Sodium 140 135 - 145 mmol/L [facility] Potassium, pl 3.7 3.3 - 4.9 mmol/L [facility] Chloride 102 97 - 110 mmol/L [facility] CO2 28 22 - 32 mmol/L [facility] Anion gap 10 2 - 15 mmol/L [facility] BUN 10 8 - 25 mg/dL [facility] Creatinine 0.92 0.40 - 1.00 mg/dL [facility] Glucose 96 70 - 199 mg/dL [facility] Comment: Interpretive Data Fasting glucose >/= 126 [...] 2022. Calcium 9.5 8.5 - 10.3 mg/dL [facility] Blood 07/11/2022 5:24 AM BOTTLE FILLER 07/11/2022 5:54 AM BOTTLE FILLER Shanique Bazan MD LAB BLOOD ORDERABLES Anjana andersen Result [facility] [place] [address] * (ABNORMAL) eGFR (07/10/2022 3:22 AM BOTTLE FILLER) eGFR 84(L) 90 - 130 mL/min/1. 73 m2 [facility] Comment: Interpretive Data Reference Interval Normal ?>/= [...] last reviewed 2021. Blood 07/10/2022 3:22 AM BOTTLE FILLER 07/10/2022 4:33 AM BOTTLE FILLER us Shanique Bazan MD LAB BLOOD ORDERABLES Anjana l Result Performing Organization Address [facility] Co de Phone Number [facility] [place] [address] * Basic metabolic panel (07/10/2022 3:22 AM BOTTLE FILLER) Sodium 140 135 - 145 mmol/L [facility] Potassium, pl 3.9 3.3 - 4.9 mmol/L [facility] Chloride 102 97 - 110 mmol/L [facility] CO2 31 22 - 32 mmol/L [facility] Anion gap 7 2 - 15 mmol/L [facility] BUN 11 8 - 25 mg/dL [facility] Creatinine 1.00 0.40 - 1.00 mg/dL [facility] Glucose 92 70 - 199 mg/dL [facility] Comment: Interpretive Data Fasting glucose >/= 126 [...] 2022. Calcium 9.6 8.5 - 10.3 mg/dL [facility] Blood 07/10/2022 3:22 AM BOTTLE FILLER 07/10/2022 4:33 AM BOTTLE FILLER Shanique Bazan MD LAB BLOOD ORDERABLES Anjana l Result Performing Organization Address [facility] Co de Phone Number [facility] [place] [address] * XR Chest 1 View (07/09/2022 2:00 PM BOTTLE FILLER) Anatomical Region Laterality Modality Body, Chest N/A Computed Radiogr aphy 07/09/2022 2:34 PM BOTTLE FILLER Impressions 07/09/2022 5:03 PM BOTTLE FILLER The current study is compared with the prior radiograph dated 07/03/2022. ??The lungs are clear without pulmonary consolidation, pleural effusion, or pneumothorax. ??The cardiomediastinal silhouette is unchanged. Dictated by: Triston Sierra MD The radiology attending physician has personally reviewed this study, and had reviewed and/or edited this written report and agrees with it. Electronically signed by: Elizabeth Delvalle M.D. Narrative 07/09/2022 5:03 PM BOTTLE FILLER EXAMINATION: 1 view chest radiograph Procedure Note [...] * ECG 12 lead (07/09/2022 12:33 PM BOTTLE FILLER) Pathologist [facility] Ventricular Rate EKG/Min 80 BPM [facility] Atrial Rate 80 BPM [facility] PA-Interval (MSEC) 166 ms [facility] QRS-Interval (MSEC) 74 ms [facility] QT-Interval (MSEC) 378 ms [facility] QTc 435 ms [facility] P [place] 73 degrees [facility] R [place] 76 degrees [facility] T [place] 61 degrees [facility] Diagnosis Normal sinus rhythm Anteroseptal infarct , age undetermined Abnormal ECG No previous ECGs available Confirmed by HUGO UP M.D ([id number]) on 07/12/2022 9:59:49 AM [facility] 07/09/2022 12:3 3 PM BOTTLE FILLER 07/12/2022 9:59 AM BOTTLE FILLER us Grover Spaulding MD ECG ORDERABLES Final Result Performing Organization Address City/[facility]/ZIP Co de Phone Number [facility] * Troponin I high-sensitivity (07/09/2022 11:26 AM BOTTLE FILLER) Trop I hs <4 <=17 ng/L [facility] Comment: Interpretive Data For further [facility] resources including the diagnostic algorithm and an aid in interpretation, copy and paste this link: [email or web address] Current Interpretive Data last revised 2019. Blood 07/09/2022 11:2 6 AM BOTTLE FILLER 07/09/2022 12:37 PM BOTTLE FILLER us Grover Spaulding MD LAB BLOOD ORDERABLES Final Resul t Performing Organization Address [facility] Co de Phone Number [facility] [place] [address] * eGFR (07/09/2022 5:21 AM BOTTLE FILLER) eGFR >90 90 - 130 mL/min/1. 73 m2 [facility] Comment: Interpretive Data Reference Interval Normal ?>/= [...] last reviewed 2021. Blood 07/09/2022 5:21 AM BOTTLE FILLER 07/09/2022 6:21 AM BOTTLE FILLER us Shanique Bazan MD LAB BLOOD ORDERABLES Anjana l Result [facility] [place] [address] * Basic metabolic panel (07/09/2022 5:21 AM BOTTLE FILLER) Sodium 136 135 - 145 mmol/L [facility] Potassium, pl 3.7 3.3 - 4.9 mmol/L [facility] Chloride 101 97 - 110 mmol/L [facility] CO2 28 22 - 32 mmol/L [facility] Anion gap 7 2 - 15 mmol/L [facility] BUN 13 8 - 25 mg/dL [facility] Creatinine 0.91 0.40 - 1.00 mg/dL [facility] Glucose 92 70 - 199 mg/dL [facility] Comment: Interpretive Data Fasting glucose >/= 126 [...] 2022. Calcium 9.2 8.5 - 10.3 mg/dL [facility] Blood 07/09/2022 5:21 AM BOTTLE FILLER 07/09/2022 6:21 AM BOTTLE FILLER us Shanique Bazan MD LAB BLOOD ORDERABLES Anjana l Result Performing Organization Address [facility] Co de Phone Number [facility] [place] [address] * eGFR (07/08/2022 6:23 AM BOTTLE FILLER) eGFR >90 90 - 130 mL/min/1. 73 m2 [facility] Comment: Interpretive Data Reference Interval Normal ?>/= [...] last reviewed 2021. Blood 07/08/2022 6:23 AM BOTTLE FILLER 07/08/2022 7:35 AM BOTTLE FILLER us Shanique Bazan MD LAB BLOOD ORDERABLES Anjana l Result Performing Organization Address [facility] Co de Phone Number [facility] [place] [address] * Basic metabolic panel (07/08/2022 6:23 AM BOTTLE FILLER) Sodium 138 135 - 145 mmol/L [facility] Potassium, pl 4.1 3.3 - 4.9 mmol/L [facility] Chloride 100 97 - 110 mmol/L [facility] CO2 26 22 - 32 mmol/L [facility] Anion gap 12 2 - 15 mmol/L [facility] BUN 13 8 - 25 mg/dL [facility] Creatinine 0.93 0.40 - 1.00 mg/dL [facility] Glucose 90 70 - 199 mg/dL [facility] Comment: Interpretive Data Fasting glucose >/= 126 [...] 2022. Calcium 9.6 8.5 - 10.3 mg/dL [facility] Blood 07/08/2022 6:23 AM BOTTLE FILLER 07/08/2022 7:20 AM BOTTLE FILLER Shanique Bazan MD LAB BLOOD ORDERABLES Anjana andersen Result [facility] [place] [address] * Surgical pathology (07/07/2022 11:35 AM BOTTLE FILLER) Tissue (Duodenum, Biopsy) 07/07/2022 11:35 AM BOTTLE FILLER Tissue (Gastric/Stomach biopsy) 07/07/2022 11:37 AM BOTTLE FILLER Tissue (Esophageal biopsy) 07/07/2022 11:39 AM BOTTLE FILLER Narrative PATHOLOGY [facility] - 07/08/2022 7:57 AM BOTTLE FILLER EPIC results best viewed via link to PDF [facility] [place] [address] Note to Patients: This report may contain [...] Gender: ??F : ??2005 (Age: 17) Address: ??[address] [place] [address] Hospital #: ??[id number] Taken:07/07/2022 Received:07/07/2022 Reported: 07/08/2022 Patient Type: [facility] Inpatient ?? Service: Hospitalist Location: [place] [address] Physician(s): ??Brittnee Babb M.D. Rita Lynn M.D. Diagnosis: A. ??Duodenum, biopsy: ? - [...] Surgical Pathology and Flow Cytometry Departments at [facility] as part of an ongoing manufacturing quality manager program and in compliance with federally mandated [...] Surgical Pathology and Flow Cytometry Departments of [facility]. ??It has not been cleared or approved by the U. S. Food and Drug Administration. IMAGES AND SCANNED DOCUMENTS, IF INCLUDED, ONLY VIEWABLE IN PDF VERSION OF REPORT us Brittnee Babb MD LAB PATHOLOGY ORDERAB LES Final Result PATHOLOGY [facility] 3rd Floor [place], [place] [phone] * EGD (07/07/2022 11:25 AM BOTTLE FILLER) Anatomical Region Laterality Modality Other Narrative Procedure Note Brittnee Babb MD - 07/07/2022 11:25 AM CST [facility] Patient Name: Isabel Churchill Procedure Date: 07/07/2022 11:25 AM Date of : 2005 Admit Type: Inpatient Age: 17 Gender: Female Attending MD: Brittnee Babb M.D. Room: [facility] ENDOSCOPY ROOM 9 Note Status: Finalized Procedure: [...] Monitored anesthesia care under the supervisionof a TRIM MASTER OPERATOR was determined to be medically necessary forthis [...] the days following this procedure please call [phone]. After hours and evenings please call [phone] speak to the GI fellow environmental field services technician. Please tell thefellow that Dr. Babbdid your [...] On: 07/07/2022 11:25 AM Recognized by the [employer] for promoting quality in endoscopy Brittnee Babb MD ENDOSCOPY PROCEDURES Final Result * eGFR (07/07/2022 6:48 AM BOTTLE FILLER) eGFR >90 90 - 130 mL/min/1. 73 m2 [facility] Comment: Interpretive Data Reference Interval Normal ?>/= [...] last reviewed 2021. Blood 07/07/2022 6:48 AM BOTTLE FILLER 07/07/2022 7:07 AM BOTTLE FILLER Shanique Bazan MD LAB BLOOD ORDERABLES Anjana andersen Result [facility] [place] [address] * Basic metabolic panel (07/07/2022 6:48 AM BOTTLE FILLER) Pathologist [facility] Sodium 138 135 - 145 mmol/L [facility] Potassium, pl 4.0 3.3 - 4.9 mmol/L [facility] Chloride 98 97 - 110 mmol/L [facility] CO2 26 22 - 32 mmol/L [facility] Anion gap 14 2 - 15 mmol/L [facility] BUN 12 8 - 25 mg/dL [facility] Creatinine 0.92 0.40 - 1.00 mg/dL [facility] Glucose 92 70 - 199 mg/dL [facility] Comment: Interpretive Data Fasting glucose >/= 126 [...] 2022. Calcium 9.6 8.5 - 10.3 mg/dL [facility] Blood 07/07/2022 6:48 AM BOTTLE FILLER 07/07/2022 7:07 AM BOTTLE FILLER us Shanique Nancy Beni MD LAB BLOOD ORDERABLES Anjana l Result Performing Organization Address [facility] [place] [address] * Lead, blood (07/07/2022 6:48 AM BOTTLE FILLER) Lead <1.0 <5.0 mcg/dL [facility] Comment: ADDITIONAL INFORMATION Testing performed by Inductively Coupled Plasma-Mass Spectrometry (ICP-MS). This test was developed and its performance characteristics determined by [facility] in a manner consistent with CLIA requirements. This test has not been cleared or approved by the U.S. Food and Drug Administration. Interpretive Data Testing performed by: [facility], [place] [address]. Blood 07/07/2022 6:48 AM BOTTLE FILLER 07/07/2022 7:17 AM BOTTLE FILLER Grover Spaulding MD LAB BLOOD ORDERABLES Final Resul t Performing Organization Address [facility] [place] [address] * Protime-INR (07/06/2022 10:03 PM BOTTLE FILLER) PT 13.5 9.2 - 13.5 sec [facility] INR 1.2 0.9 - 1.2 [facility] Comment: Interpretive data Oral anticoagulant therapeutic ranges: Venous thromboembolism prophylaxis or treatment: 2.0-3.0 CARDIOLOGY Standard range: 2.0-3.0 High-intensity range: 2.5-3.5 Refer to indication-specific guidelines for appropriate target ranges for prosthetic heart valve replacement. Current interpretive data was last revised on 2019. Blood 07/06/2022 10:0 3 PM BOTTLE FILLER 07/06/2022 11:40 PM BOTTLE FILLER us Grover Spaulding MD LAB BLOOD ORDERABLES Final Resul t Performing Organization Address [facility] Co de Phone Number [facility] [place] [address] * eGFR (07/06/2022 3:39 AM BOTTLE FILLER) eGFR >90 90 - 130 mL/min/1. 73 m2 [facility] Comment: Interpretive Data Reference Interval Normal ?>/= [...] last reviewed 2021. Blood 07/06/2022 3:39 AM BOTTLE FILLER 07/06/2022 4:22 AM BOTTLE FILLER us Shanique Bazan MD LAB BLOOD ORDERABLES Anjana l Result Performing Organization Address [facility] Co de Phone Number [facility] [place] [address] * (ABNORMAL) Basic metabolic panel (07/06/2022 3:39 AM BOTTLE FILLER) Sodium 136 135 - 145 mmol/L [facility] Potassium, pl 3.8 3.3 - 4.9 mmol/L [facility] Chloride 101 97 - 110 mmol/L [facility] CO2 28 22 - 32 mmol/L [facility] Anion gap 7 2 - 15 mmol/L [facility] BUN 6(L) 8 - 25 mg/dL [facility] Creatinine 0.90 0.40 - 1.00 mg/dL [facility] Glucose 94 70 - 199 mg/dL [facility] Comment: Interpretive Data Fasting glucose >/= 126 [...] 2022. Calcium 9.9 8.5 - 10.3 mg/dL [facility] Blood 07/06/2022 3:39 AM BOTTLE FILLER 07/06/2022 4:22 AM BOTTLE FILLER us Shanique Bazan MD LAB BLOOD ORDERABLES Anjana andersen Result [facility] [place] [address] * (ABNORMAL) Copper, serum (07/06/2022 3:39 AM BOTTLE FILLER) Pathologist [facility] Copper 70(L) 77 - 206 mcg/dL [facility] Comment: ADDITIONAL INFORMATION This test was developed and its performance characteristics determined by [facility] in a manner consistent with CLIA requirements. This test has not been cleared or approved by the U.S. Food and Drug Administration. Test Performed by: [facility] [address] [place] [address] Museum Assistant: Juan Villagran M.D. Ph.D.; CLIA# [id number] Blood 07/06/2022 3:39 AM BOTTLE FILLER 07/06/2022 4:15 AM BOTTLE FILLER us Shanique Bazan MD LAB BLOOD ORDERABLES Anjana andersen Result [facility] [place] [address] * MRI Brain W WO Contrast (07/05/2022 1:38 PM BOTTLE FILLER) Anatomical Region Laterality Modality Head and Neck N/A Magnetic Resonan ce 07/05/2022 1:57 PM BOTTLE FILLER Impressions 07/05/2022 2:11 PM BOTTLE FILLER Crowding of the foramen magnum with 3 [...] Beatrice Silva M.D. Narrative 07/05/2022 2:11 PM BOTTLE FILLER EXAMINATION: Magnetic resonance imaging (MRI) of the [...] carotid arteries and basilar artery. Procedure Note Allan Silva, Beatrice Whitehead MD - 07/05/2022 EXAMINATION: Magnetic resonance imaging [...] it. Electronically signed by: Beatrice Silva M.D. us Shanique Bazan MD IMG MRI PROCEDURES Final Result * EEG (07/04/2022 4:17 PM BOTTLE FILLER) Anatomical Region Laterality Modality EEG Narrative 07/05/2022 12:20 PM BOTTLE FILLER Extended EEG Report Patient Name: Isabel Churchill [facility] Medical Record Number (MRN): [id number] [facility] Record: No Soarian MRN Date of (): 2005 EEG Date: 07/04/2022 Ordering Provider: Shanique Bazan MD CC: Rita Lynn Start Time: 07/04/2022 2:49:55 PM ? End Time: ??07/04/2022 3:56:57 PM Introduction: Ms. Churchill is a 17 y.o. female without significant past medical history who presented with dystonic movements in setting of intractable nausea and vomiting after ceasing cannabis use, concerning for seizures. EEG was performed to evaluate for epileptiform activity. This is a 32 channel EEG recording acquired on a [employer] EEG-1200 acquisition system. Scalp electrodes were placed [...] his/her intent. Signing Attending: Miguel Mitchell MD us Shanique Bazan MD NEUROLOGY ORDERABLES Anjana l Result * CT Head WO Contrast (07/04/2022 1:56 PM BOTTLE FILLER) Anatomical Region Laterality Modality Head and Neck N/A Computed Tomogra phy 07/04/2022 2:00 PM BOTTLE FILLER Impressions 07/04/2022 3:47 PM BOTTLE FILLER No intracranial hemorrhage, mass effect or midline shift. Dictated by: Lamin Vargas M.D. The radiology attending physician has personally reviewed this study, and had reviewed and/or edited this written report and agrees with it. Electronically signed by: Olga Akers M.D. Narrative 07/04/2022 3:47 PM BOTTLE FILLER EXAMINATION: CT head without contrast HISTORY: Muscle [...] R esult * eGFR (07/04/2022 5:41 AM BOTTLE FILLER) [facility] eGFR >90 90 - 130 mL/min/1. 73 m2 [facility] Comment: Interpretive Data Reference Interval Normal ?>/= [...] last reviewed 2021. Blood 07/04/2022 5:41 AM BOTTLE FILLER 07/04/2022 6:35 AM BOTTLE FILLER Asad Marquis MD LAB BLOOD ORDERABLES Anjana l Result Performing Organization Address [facility] [place] [address] * Tissue transglutaminase IgA (TGG-IgA Ab) (07/04/2022 5:41 AM BOTTLE FILLER) TTG ab, IgA <0.5 <=14.9 units/mL [facility] Comment: Interpretive data Negative: <15 units/mL Positive: > or equal to 15 units/mL Current interpretive data was last revised on 2016. Blood 07/04/2022 5:41 AM BOTTLE FILLER 07/04/2022 6:22 AM BOTTLE FILLER us Ady Emanuel MD LAB BLOOD ORDERABLES Final R esult Performing Organization Address [facility] [place] [address] * Magnesium (07/04/2022 5:41 AM BOTTLE FILLER) Magnesium 1.9 1.4 - 2.5 mg/dL [facility] Blood 07/04/2022 5:41 AM BOTTLE FILLER 07/04/2022 6:19 AM BOTTLE FILLER us Ady Emanuel MD LAB BLOOD ORDERABLES Final R esult Performing Organization Address [facility] [place] [address] * Gliadin antibody, IgA (07/04/2022 5:41 AM BOTTLE FILLER) Anti-gliadin, IgA 0.5 <=14.9 units/mL [facility] Comment: Interpretive data Negative: <15 units/mL Positive: > or equal to 15 units/mL Current interpretive data was last revised on 2016. Blood 07/04/2022 5:41 AM BOTTLE FILLER 07/04/2022 6:22 AM BOTTLE FILLER us Ady Emanuel MD LAB BLOOD ORDERABLES Final R esult Performing Organization Address City/[facility] Co de Phone Number [facility] [place] [address] * Erythrocyte sedimentation rate (07/04/2022 5:41 AM BOTTLE FILLER) Erythrocyte sedimentation rate 9 1 - 20 mm/hr [facility] Blood 07/04/2022 5:41 AM BOTTLE FILLER 07/04/2022 6:20 AM BOTTLE FILLER us Ady Emanuel MD LAB BLOOD ORDERABLES Final R esult Performing Organization Address [facility] Co de Phone Number [facility] [place] [address] * Phosphorus (07/04/2022 5:41 AM BOTTLE FILLER) Pathologist [facility] Phosphorus, pl 3.9 2.3 - 4.5 mg/dL [facility] Blood 07/04/2022 5:41 AM BOTTLE FILLER 07/04/2022 6:19 AM BOTTLE FILLER us Asad Marquis MD LAB BLOOD ORDERABLES Anjana l Result Performing Organization Address [facility] Co de Phone Number [facility] [place] [address] * (ABNORMAL) Basic metabolic panel (07/04/2022 5:41 AM BOTTLE FILLER) Sodium 140 135 - 145 mmol/L [facility] Potassium, pl 3.5 3.3 - 4.9 mmol/L [facility] Chloride 104 97 - 110 mmol/L [facility] CO2 28 22 - 32 mmol/L [facility] Anion gap 8 2 - 15 mmol/L [facility] BUN 4(L) 8 - 25 mg/dL [facility] Creatinine 0.72 0.40 - 1.00 mg/dL [facility] Glucose 101 70 - 199 mg/dL [facility] Comment: Interpretive Data Fasting glucose >/= 126 [...] 2017. Calcium 9.3 8.5 - 10.3 mg/dL [facility] Blood 07/04/2022 5:41 AM BOTTLE FILLER 07/04/2022 6:19 AM BOTTLE FILLER Asad Marquis MD LAB BLOOD ORDERABLES Anjana l Result Performing Organization Address City/[facility]/ZIP Co de Phone Number [facility] [place] [address] * Lead, blood (07/04/2022 5:41 AM BOTTLE FILLER) Lead TNP [facility] Comment: Credited, collection error. Lead, Venous, B was cancelled on 07/06/2022 at 09:49; Specimen was improperly collected. Thornton blue no additive tube received. ??Thornton blue EDTA tube required. Interpretive Data Testing performed by: [facility], [place] [address]. Blood 07/04/2022 5:41 AM BOTTLE FILLER 07/04/2022 6:13 AM BOTTLE FILLER Asad Marquis MD LAB BLOOD ORDERABLES Edit ed Result - Final Performing Organization Address [facility]/ZIP Co de Phone Number [facility] [place] [address] * HIV 1/2 Antibody plus p24 Antigen Blood (07/04/2022 5:41 AM BOTTLE FILLER) HIV 1/2 ab + p24 ag Nonreactive Nonreactive [facility] Comment:Nonreactive for HIV- 1 antigen and HIV-1/HIV-2 antibodies. No laboratory evidence of HIV infection. If acute HIV infection is suspected, consider testing for HIV-1 RNA. Current interpretive data was last revised on 22. Blood 07/04/2022 5:41 AM BOTTLE FILLER 07/04/2022 6:20 AM BOTTLE FILLER us Asad Marquis MD LAB MICROBIOLOGY - GENERA L ORDERABLES Final Result [facility] [place] [address] * XR Chest Pa Lateral 2 Views (07/03/2022 1:46 PM BOTTLE FILLER) Anatomical Region Laterality Modality Body, Chest N/A Computed Radiogr aphy 07/03/2022 2:05 PM BOTTLE FILLER Impressions 07/03/2022 2:20 PM BOTTLE FILLER There are no relevant prior studies available [...] Shanique Maxwell MD Narrative 07/03/2022 2:20 PM BOTTLE FILLER EXAMINATION: XR CHEST PA LATERAL 2 VIEWS [...] Troponin I high-sensitivity 2-hour (07/03/2022 12:03 PM BOTTLE FILLER) Trop I hs <4 <=17 ng/L [facility] Comment: Interpretive Data For further hscTnI resources including the diagnostic algorithm and an aid in interpretation, copy and paste this link: [email or web address] Current Interpretive Data last revised 2019. Trop I hs delta 0 ng/L [facility] Trop I hs interp Insignificant [facility] Blood 07/03/2022 12:0 3 PM BOTTLE FILLER 07/03/2022 12:07 PM BOTTLE FILLER Jorge Degroot MD LAB BLOOD ORDERABLES Anjana l Result [facility] [place] [address] * CT Abdomen Pelvis W Contrast (07/03/2022 11:30 AM BOTTLE FILLER) Anatomical Region Laterality Modality Body N/A Computed Tomogra phy 07/03/2022 11:4 2 AM BOTTLE FILLER Impressions 07/03/2022 11:[address] correlate for acute abdominal pain. Dictated by: Tanja Wood MD The radiology attending physician has personally reviewed this study, and had reviewed and/or edited this written report and agrees with it. Electronically signed by: Clemente Foster M.D. Narrative 07/03/2022 11:51 AM BOTTLE FILLER EXAMINATION: ??Computed tomography of the abdomen and [...] by: Clemente Foster M.D. Jorge Degroot MD IM CT PROCEDURES Final R esult * (ABNORMAL) Drugs of Abuse Screen, Urine with Reflex Confirmation (07/03/2022 10:30 AM BOTTLE FILLER) Amphetamine, ur Not Detected CutOff 500ng/mL [facility] Comment: Interpretive Data - Amphetamines: ??Samples containing greater than 500 ng/mL d-methamphetamine ??or other cross-reacting amphetamine compounds are reported as positive. ??Amphetamine immunoassays are subject to significant false positive rates due to cross-reactivity of non-amphetamine drugs. Current Interpretive Data was last reviewed 2018. Barbiturates, ur Not Detected CutOff 200ng/mL [facility] Comment: Interpretive Data - Barbiturates: ??Samples containing greater than 200 ng/mL secobarbital or other cross-reacting barbiturate compounds are reported as positive. ??False positive and false negative results are possible. Current Interpretive Data was last reviewed 2018. Benzodiazepines, ur Not Detected CutOff 100ng/mL [facility] Comment: Interpretive Data - Benzodiazepines: ??Samples containing greater than 100 ng/mL nordiazepam or other cross-reacting compounds are reported as positive. ?? False positive and false negative results are possible. ?? Current Interpretive Data was last reviewed 2018. Cannabinoids, ur Detected(A) CutOff 50 ng/mL [facility] Cocaine, ur Not Detected CutOff 150ng/mL [facility] Comment: Interpretive Data - Cocaine: ??Samples containing greater than 150 ng/mL benzoylecgonine or other cross-reacting compounds are reported as positive. False positive and false negative results are possible. Current Interpretive Data was last reviewed 2018. Fentanyl, Ur Not Detected Cutoff 1 ng/mL [facility] Comment: Interpretive Data - Fentanyls: ??Samples containing greater than 1 ng/mL fentanyl or other cross-reacting fentanyl compounds are reported as detected. ??False positive and false negative results are possible. Current Interpretive Data was last reviewed 2019. Methadone, ur Not Detected CutOff 300ng/mL [facility] Comment: Interpretive Data - Methadone: ??Samples containing greater than 300 ng/mL d,l-methadone or other cross-reacting compounds are reported as positive. ??False positive and false negative results are possible. Current Interpretive Data was last reviewed 2018. Opiates, ur Not Detected CutOff 300ng/mL [facility] Comment: Interpretive Data - Opiates: ??Samples containing greater than 300 ng/mL morphine or other cross-reacting compounds are reported as positive. ??False positive and false negative results are possible. Current Interpretive Data was last reviewed 2018. Oxycodone, ur Not Detected CutOff 100ng/mL [facility] Comment: Interpretive Data - Oxycodone: ??Samples containing greater than 100 ng/mL oxycodone or other cross-reacting compounds are reported as positive. ??False positive and false negative results are possible. ?? Current Interpretive Data was last reviewed 2018. Phencyclidine, ur Not Detected CutOff 25 ng/mL [facility] Comment: Interpretive Data - Phencyclidine: ??Samples containing greater than 25 ng/mL phencyclidine or other cross-reacting compounds are reported as positive. ??False positive and false negative results are possible. ?? Current Interpretive Data was last reviewed 2018. Urine Creatinine 65 mg/dL [facility] Comment: Interpretive Data Urine Creatinine: < 10 mg/dL is extremely dilute = or > 10 but < 20 mg/dL is dilute = or > 20 mg/dL is normal Current Interpretive Data was last revised on 2017. Urine 07/03/2022 10:3 0 AM BOTTLE FILLER 07/03/2022 10:41 AM BOTTLE FILLER Narrative [facility] - 07/04/2022 12:12 PM BOTTLE FILLER Drug of Abuse screening is performed by immunoassay for medical purposes only. ??This is not to be used for Pain Management purposes. ??If Detected, confirmation testing will be performed for Amphetamines, Cocaine, Fentanyl, Methadone, Opiates, Oxycodone or Phencyclidine. Shanique Bazan MD LAB URINE ORDERABLES Anjana l Result Performing Organization Address [facility] de Phone Number [facility] [place] [address] * hCG, urine, qualitative (07/03/2022 10:30 AM BOTTLE FILLER) HCG, ur Negative Negative [facility] Urine 07/03/2022 10:3 0 AM BOTTLE FILLER 07/03/2022 10:41 AM BOTTLE FILLER Jorge Degroot MD LAB URINE ORDERABLES Anjana l Result Performing Organization Address [facility] de Phone Number [facility] [place] [address] * POCT creatinine (07/03/2022 10:23 AM BOTTLE FILLER) Creatinine POC 0.7 0.4 - 1.0 mg/dL [facility] Blood 07/03/2022 10:2 3 AM BOTTLE FILLER 07/03/2022 10:23 AM BOTTLE FILLER us Yayo Patterson MD LAB POCT ORDERABLES - ISIDRO CE Final Result [facility] [place] [address] * Urinalysis reflex to microscopic and culture Urine (07/03/2022 10:16 AM BOTTLE FILLER) Color, ur Straw Yellow [facility] Clarity, ur Clear Clear [facility] Specific gravity, ur 1.014 1.003 - 1.030 [facility] pH, urine 7.5 [facility] Protein, ur ql Negative Negative [facility] Glucose, ur ql Negative Negative [facility] Ketones, ur Negative Negative [facility] Bilirubin, ur Negative Negative [facility] Blood, ur Negative Negative [facility] Urobilinogen, ur <2.0 <2.0 mg/dL [facility] Nitrite, ur Negative Negative [facility] Leukocyte esterase, ur Negative Negative [facility] UA reflex comment Reflex conditions for microscopic UA and culture not met. [facility] Urine 07/03/2022 10:1 6 AM BOTTLE FILLER 07/03/2022 10:22 AM BOTTLE FILLER Narrative [facility] - 07/03/2022 10:26 AM BOTTLE FILLER ?? Urine pH is affected by diet, medications, systemic acid-base disturbances, and renal tubular function. ??pH may affect urinary stone formation. ??For example, urine pH below 6.0 may help reduce the tendency for calcium phosphate stones and pH greater than 6.0 may reduce the tendency for uric acid stone formation. Source: [facility]. Last revised 06-30-2017 us Jorge Degroot MD LAB MICROBIOLOGY - GENERA L ORDERABLES Final Result [facility] [place] [address] * Vitamin B1 (07/03/2022 10:15 AM BOTTLE FILLER) Thiamine (Vit B1) 92 70 - 180 nmol/L [facility] Comment: ADDITIONAL INFORMATION This test was developed and its performance characteristics determined by [facility] in a manner consistent with CLIA requirements. This test has not been cleared or approved by the U.S. Food and Drug Administration. Test Performed by: [place] [address] Museum Assistant: Juan Villagran M.D. Ph.D.; CLIA# [id number] Blood 07/03/2022 10:1 5 AM BOTTLE FILLER 07/03/2022 10:34 PM BOTTLE FILLER us Ady Emanuel MD LAB BLOOD ORDERABLES Final R esult Performing Organization Address [facility] Co de Phone Number [facility] [place] [address] * (ABNORMAL) Vitamin D 25 hydroxy (07/03/2022 10:15 AM BOTTLE FILLER) Vitamin D 25-OH 17(L) 30 - 80 ng/mL [facility] Blood 07/03/2022 10:1 5 AM BOTTLE FILLER 07/03/2022 10:18 AM BOTTLE FILLER Narrative [facility] - 07/03/2022 9:54 PM BOTTLE FILLER AGES: -18 years - Sufficient: 20-100 ng/mL; Borderline: 10-20 ng/mL; Deficient: <10 ng/mL. ??Reference intervals pertain to males and females from through age 18. ??Intervals reflect consensus clinical decision limits derived from various reports including the 2011 [employer] Report on calcium and vitamin D. ??Vitamin D concentrations may vary widely depending on ethnic background, geographic location, and the time of the year the sample was obtained. ??References: ??1. Blaise KUMARI, Graciela NICHOLS. Prevention of Rickets and Vitamin D Deficiency in Infants, Children, and Adolescents. Pediatrics 2008;122:3171-7094. ??2. Luciano AC, Pam CL, Pierre AL, Cardoza HB, eds. Dietary Reference Intakes for Calcium and Vitamin D. [employer] [employer]; National Academies Press:2011 ??3. Lisa PHU, Pasha J, and Shobha DJ. Circulating Intact Parathyroid Hormone is Suppressed at 25-hydroxyvitamin D Concentrations greater than 25 nmol/L. J Pediatr Endocrinol Metab 2014;doi:10.1515/ztbj-5894-7645. Last revised on 07/22/2017. us Ady Emanuel MD LAB BLOOD ORDERABLES Final R esult Performing Organization Address City/[facility]/ZIP Co de Phone Number [facility] [place] [address] * IgA (07/03/2022 10:15 AM BOTTLE FILLER) Immunoglobulin A 118.0 70.0 - 400.0 mg/dL [facility] Blood 07/03/2022 10:1 5 AM BOTTLE FILLER 07/03/2022 10:18 AM BOTTLE FILLER us Ady Emanuel MD LAB BLOOD ORDERABLES Final R esult Performing Organization Address [facility] Co de Phone Number [facility] [place] [address] * CRP (acute phase) (07/03/2022 10:15 AM BOTTLE FILLER) CRP <0.5 <=10.0 mg/L [facility] Blood 07/03/2022 10:1 5 AM BOTTLE FILLER 07/03/2022 10:18 AM BOTTLE FILLER us Ady Emanuel MD LAB BLOOD ORDERABLES Final R esult [facility] [place] [address] * TSH reflex to free T4 (07/03/2022 10:15 AM BOTTLE FILLER) TSH 0.90 0.30 - 4.20 mcIUnit/mL [facility] Blood 07/03/2022 10:1 5 AM BOTTLE FILLER 07/03/2022 10:18 AM BOTTLE FILLER us Ady Emanuel MD LAB BLOOD ORDERABLES Final R esult Performing Organization Address City/[facility] Co de Phone Number [facility] [place] [address] * (ABNORMAL) Ferritin (07/03/2022 10:15 AM BOTTLE FILLER) Ferritin 170(H) 13 - 150 ng/mL [facility] Blood 07/03/2022 10:1 5 AM BOTTLE FILLER 07/03/2022 10:18 AM BOTTLE FILLER us Ady Emanuel MD LAB BLOOD ORDERABLES Final R esult Performing Organization Address City/[facility]/ZIP Co de Phone Number [facility] [place] [address] * Iron profile w/ IBC (07/03/2022 10:15 AM BOTTLE FILLER) Iron 76 35 - 145 mcg/dL [facility] TIBC 254 250 - 400 mcg/dL [facility] Transferrin saturation 30 20 - 50 % [facility] Blood 07/03/2022 10:1 5 AM BOTTLE FILLER 07/03/2022 10:18 AM BOTTLE FILLER us Ady Emanuel MD LAB BLOOD ORDERABLES Final R esult Performing Organization Address City/[facility] Co de Phone Number [facility] [place] [address] * (ABNORMAL) Vitamin B12 (07/03/2022 10:15 AM BOTTLE FILLER) [facility] Vitamin B12 1,748(H) 230 - 1,250 pg/mL [facility] Blood 07/03/2022 10:1 5 AM BOTTLE FILLER 07/03/2022 10:18 AM BOTTLE FILLER us Ady Emanuel MD LAB BLOOD ORDERABLES Final R [facility] Performing Organization Address [facility] Co de Phone Number [facility] [place] [address] * eGFR (07/03/2022 10:15 AM BOTTLE FILLER) [facility] eGFR >90 90 - 130 mL/min/1. 73 m2 [facility] Comment: Interpretive Data Reference Interval Normal ?>/= [...] reviewed 2021. Blood 07/03/2022 10:1 5 AM BOTTLE FILLER 07/03/2022 10:18 AM BOTTLE FILLER us Jorge Degroot MD LAB BLOOD ORDERABLES Anjana nathaly Result [facility] [place] [address] * Differential, auto (07/03/2022 10:15 AM BOTTLE FILLER) Pathologist [facility] Neutrophil abs 1.9 1.7 - 6.5 K/cumm [facility] Imm gran abs 0.0 0.0 - 0.1 K/cumm [facility] Lymphocyte abs 1.2 0.8 - 3.3 K/cumm [facility] Monocyte abs 0.3 0.2 - 0.8 K/cumm [facility] Eosinophil abs 0.1 0.0 - 0.5 K/cumm [facility] Basophil abs 0.0 0.0 - 0.1 K/cumm [facility] Neutrophil pct 55.8 % [facility] Comment: Interpretive Data Percent cell count reference ranges are not reported, since discordance with absolute values may lead to misinterpretation of CBC data. Current Interpretive Data was last revised on 2017. Imm gran pct 0.3 % [facility] Comment: Interpretive Data Percent cell count reference ranges are not reported, since discordance with absolute values may lead to misinterpretation of CBC data. Current Interpretive Data was last revised on 2017. Lymphocyte pct 34.4 % [facility] Comment: Interpretive Data Percent cell count reference ranges are not reported, since discordance with absolute values may lead to misinterpretation of CBC data. Current Interpretive Data was last revised on 2017. Monocyte pct 7.4 % [facility] Comment: Interpretive Data Percent cell count reference ranges are not reported, since discordance with absolute values may lead to misinterpretation of CBC data. Current Interpretive Data was last revised on 2017. Eosinophil pct 1.5 % [facility] Comment: Interpretive Data Percent cell count reference ranges are not reported, since discordance with absolute values may lead to misinterpretation of CBC data. Current Interpretive Data was last revised on 2017. Basophil pct 0.6 % [facility] Comment: Interpretive Data Percent cell count reference ranges are not reported, since discordance with absolute values may lead to misinterpretation of CBC data. Current Interpretive Data was last revised on 2017. Blood 07/03/2022 10:1 5 AM BOTTLE FILLER 07/03/2022 10:17 AM BOTTLE FILLER Jorge Degroot MD LAB BLOOD ORDERABLES Anjana l Result Performing Organization Address [facility] Co de Phone Number [facility] [place] [address] * Troponin I high-sensitivity series (baseline, 2hr, 4hr, 6hr) (07/03/2022 10:15 AM BOTTLE FILLER) Trop I hs <4 <=17 ng/L [facility] Comment: Interpretive Data For further hscTnI resources including the diagnostic algorithm and an aid in interpretation, copy and paste this link: [email or web address] Current Interpretive Data last revised 2019. Blood 07/03/2022 10:1 5 AM BOTTLE FILLER 07/03/2022 10:17 AM BOTTLE FILLER Jorge Degroot MD LAB BLOOD ORDERABLES Anjana l Result Performing Organization Address City/[facility]/ZIP Co de Phone Number [facility] [place] [address] * Phosphorus (07/03/2022 10:15 AM BOTTLE FILLER) Phosphorus, pl 3.1 2.3 - 4.5 mg/dL [facility] Blood 07/03/2022 10:1 5 AM BOTTLE FILLER 07/03/2022 10:18 AM BOTTLE FILLER Jorge Degroot MD LAB BLOOD ORDERABLES Anjana l Result [facility] [place] [address] * Magnesium (07/03/2022 10:15 AM BOTTLE FILLER) [facility] Magnesium 1.9 1.4 - 2.5 mg/dL [facility] Blood 07/03/2022 10:1 5 AM BOTTLE FILLER 07/03/2022 10:18 AM BOTTLE FILLER Jorge Degroot MD LAB BLOOD ORDERABLES Anjana l Result Performing Organization Address [facility] Co de Phone Number [facility] [place] [address] * Respiratory pathogen panel Nasopharyngeal (07/03/2022 10:15 AM BOTTLE FILLER) [facility] Influenza A RNA Not Detected Not Detected [facility] Influenza B RNA Not Detected Not Detected [facility] RSV RNA Not Detected Not Detected [facility] COVID-19 RNA Not Detected Not Detected [facility] Coronavirus 229E RNA Not Detected Not Detected [facility] Coronavirus HKU1 RNA Not Detected Not Detected [facility] Coronavirus NL63 RNA Not Detected Not Detected [facility] Coronavirus OC43 RNA Not Detected Not Detected [facility] Adenovirus DNA Not Detected Not Detected [facility] Metapneumovirus RNA Not Detected Not Detected [facility] Rhinovirus/Enterov irus RNA Not Detected Not Detected [facility] Parainfluenza 1 RNA Not Detected Not Detected [facility] Parainfluenza 2 RNA Not Detected Not Detected [facility] Parainfluenza 3 RNA Not Detected Not Detected [facility] Parainfluenza 4 RNA Not Detected Not Detected [facility] B. pertussis DNA Not Detected Not Detected [facility] B. parapertussis DNA Not Detected Not Detected [facility] C. pneumoniae DNA Not Detected Not Detected [facility] M. pneumoniae DNA Not Detected Not Detected [facility] Nasopharyngeal 07/03/2022 10 :15 AM BOTTLE FILLER 07/03/2022 10:15 AM BOTTLE FILLER Narrative [facility] - 07/03/2022 11:06 AM BOTTLE FILLER Is the Patient experiencing symptoms consistent with COVID?->Yes Date of Symptom Onset->06/16/22 Reason for testing?->Bed placement or semi-private room Surveillance testing for transplant patient?->No ??Interpretive Data The [employer] FilmArray Respiratory Panel (RP2.1) assay is a [...] assay has FDA clearance for testing of BUSINESS RECORDS MANAGER swabs. ??The performance of additional specimen types has been assessed by the performing laboratory. ??The performance characteristics of this assay have been determined by [facility] Infectious Disease [facility]. Current interpretive data was last revised on 22. Jorge Degroot MD LAB MICROBIOLOGY - GENERA L ORDERABLES Final Result Performing Organization Address City/[facility]/ZIP Co de Phone Number [facility] [place] [address] * Lipase (07/03/2022 10:15 AM BOTTLE FILLER) [facility] Lipase 55 10 - 99 Units/L [facility] Blood 07/03/2022 10:1 5 AM BOTTLE FILLER 07/03/2022 10:18 AM BOTTLE FILLER Jorge Degroot MD LAB BLOOD ORDERABLES Anjana l Result Performing Organization Address [facility] de Phone Number [facility] [place] [address] * (ABNORMAL) Comprehensive metabolic panel (07/03/2022 10:15 AM BOTTLE FILLER) [facility] Sodium 141 135 - 145 mmol/L [facility] Potassium, pl 4.0 3.3 - 4.9 mmol/L [facility] Chloride 103 97 - 110 mmol/L [facility] CO2 27 22 - 32 mmol/L [facility] Anion gap 11 2 - 15 mmol/L [facility] BUN 3(L) 8 - 25 mg/dL [facility] Creatinine 0.74 0.40 - 1.00 mg/dL [facility] Glucose 106 70 - 199 mg/dL [facility] Comment: Interpretive Data Fasting glucose >/= 126 [...] 2017. Calcium 9.5 8.5 - 10.3 mg/dL [facility] Bilirubin, total 0.8 0.1 - 1.2 mg/dL [facility] Protein, pl 7.3 6.5 - 8.5 g/dL [facility] Albumin 4.5 3.5 - 5.0 g/dL [facility] Alk phos 48(L) 70 - 260 Units/L [facility] ALT 14 7 - 45 Units/L [facility] AST 23 10 - 45 Units/L [facility] Blood 07/03/2022 10:1 5 AM BOTTLE FILLER 07/03/2022 10:18 AM BOTTLE FILLER us Jorge Degroot MD LAB BLOOD ORDERABLES Anjana l Result [facility] [place] [address] * (ABNORMAL) CBC with auto differential (07/03/2022 10:15 AM BOTTLE FILLER) Pathologist [facility] WBC 3.4(L) 3.8 - 9.9 K/cumm [facility] Hgb 12.4 11.9 - 15.5 g/dL [facility] Hct 37.3 35.6 - 45.5 % [facility] Plt 217 150 - 400 K/cumm [facility] MPV 10.6 9.1 - 12.3 fL [facility] RBC 4.53 3.90 - 5.20 M/cumm [facility] MCV 82.3 81.3 - 96.4 fL [facility] MCH 27.4 27.1 - 33.3 pg [facility] MCHC 33.2 32.3 - 35.7 g/dL [facility] RDW CV 13.3 11.1 - 14.9 % [facility] RDW SD 40.1 35.7 - 48.1 fL [facility] NRBC abs 0.00 0.00 - 0.01 K/cumm [facility] Blood 07/03/2022 10:1 5 AM BOTTLE FILLER 07/03/2022 10:17 AM BOTTLE FILLER Jorge Degroot MD LAB BLOOD ORDERABLES Anjana l Result Performing Organization Address [facility] Co de Phone Number [facility] [place] [address] * Calcium, ionized (07/03/2022 9:42 AM BOTTLE FILLER) [facility] Calcium, Ionized 4.74 4.50 - 5.10 mg/dL [facility] Blood 07/03/2022 9:42 AM BOTTLE FILLER 07/03/2022 10:08 AM BOTTLE FILLER Jorge Degroot MD LAB BLOOD ORDERABLES Anjana l Result Performing Organization Address [facility] de Phone Number [facility] [place] [address] * ECG 12-LEAD (07/03/2022 8:25 AM BOTTLE FILLER) Narrative [facility] - 07/03/2022 8:25 AM BOTTLE FILLER Ish Espinal MD ? 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 Admitting Diagnoses Diagnosis [...] Indications: Fever, PainIndications:Fever,Pain Given 07/12/2022 9:06 PM BOTTLE FILLER 1,000 mg Given 07/11/2022 3:22 AM BOTTLE FILLER 1,000 mg Given 07/06/2022 11:32 AM BOTTLE FILLER 1,000 mg baclofen (LIORESAL) tablet 5 mg 5 mg (0.119 mg/kg), oral, 3 times daily PRN, muscle spasms, Starting on 07/03/22 at 2127 Given 07/04/2022 9: 50 AM BOTTLE FILLER 5 mg Given 07/03/2022 10:40 PM BOTTLE FILLER 5 mg calcium carbonate (TUMS) chewable tablet 1,000 mg 1,000 mg (24.9 mg/kg = 400 mg of elemental calcium), oral, Every 6 hours PRN, indigestion, heartburn, Starting on Tue07/05/22 at 0052 Given 07/06/2022 11:33 AM BOTTLE FILLER 1,000 mg Given 07/05/2022 1:34 AM BOTTLE FILLER 1,000 mg dextrose 5% and Lactated Ringer's infusion 75 mL/hr, intravenous, Continuous, Starting on 07/03/22 at 2145, For 1 day New Bag 07/04/2022 4:13 PM BOTTLE FILLER 75 mL/hr 75 mL/hr New Bag 07/04/2022 2:17 AM BOTTLE FILLER 75 mL/hr 75 mL/hr dextrose 5% and Lactated Ringer's infusion 75 mL/hr, intravenous, Continuous, Starting on Tue07/05/22 at 0500, For 1 day New Bag 07/05/2022 10:21 AM BOTTLE FILLER 75 mL/hr 75 mL/hr New Bag 07/05/2022 4:46 AM BOTTLE FILLER 75 mL/hr 75 mL/hr diphenhydrAMINE (BENADRYL) injection 50 mg 50 mg (1.25 mg/kg), intravenous, Administer over 2 Minutes, Every 6 hours PRN, other, spasm, Starting on 07/04/22 at 1322 Given 07/05/2022 4:28 AM BOTTLE FILLER 50 mg Given 07/04/2022 10:16 PM BOTTLE FILLER 50 mg Given 07/04/2022 4:15 PM BOTTLE FILLER 50 mg diphenhydrAMINE (BENADRYL) injection 50 mg 50 mg (1.25 mg/kg), intravenous, Administer over 2 Minutes, Every 6 hours PRN, other, spasm, Starting on Tue07/06/22 at 1948, Indications: spasms or itchingIndications:spa sms or itching Given 07/06/2022 8:12 PM BOTTLE FILLER 50 mg droperidoL (INAPSINE) injection 0.625 mg 0.625 mg (0.0157 mg/kg), intravenous, Administer over 5 Minutes, Once, On 07/03/22 at 1636, For 1 dose Given 07/03/2022 4:42 PM BOTTLE FILLER 0.625 mg enoxaparin (LOVENOX) syringe 30 mg 30 mg (0.713 mg/kg), subcutaneous, Daily (for enoxaparin), First dose on 07/03/22 at 2145, Indications: Deep Vein Thrombosis PreventionIndications: Deep Vein Thrombosis Prevention Given 07/03/2022 9:50 PM BOTTLE FILLER 30 mg Left Lower Abdomen ergocalciferol (VITAMIN D) capsule 50,000 Units 50,000 Units, oral, Weekly, First dose on 07/04/22 at 0900, For 8 doses, Do not crush, break, or open. Given 07/04/2022 9:50 AM BOTTLE FILLER 50,000 Units famotidine (PEPCID) 10 mg in sodium chloride 0.9% 50 mL IVPB 10 mg (0.249 mg/kg), intravenous, at 153 mL/hr, Administer over 20 Minutes, Every 12 hours scheduled, First dose on Tue07/05/22 at 2100 New Bag 07/11/2022 10:32 PM BOTTLE FILLER 10 mg 153 mL/hr New Bag 07/11/2022 9:01 AM BOTTLE FILLER 10 mg 153 mL/hr New Bag 07/10/2022 8:59 PM BOTTLE FILLER 10 mg 153 mL/hr famotidine (PEPCID) injection 10 mg 10 mg (0.249 mg/kg), intravenous, Administer over 2 Minutes, Every 12 hours, First dose on 07/11/22 at 2330, IV Push over at least 2 minutes Given 07/13/2022 11:16 AM BOTTLE FILLER 10 mg Given 07/12/2022 11:48 PM BOTTLE FILLER 10 mg Given 07/12/2022 2:52 PM BOTTLE FILLER 10 mg folic acid (FOLVITE) tablet 1 mg 1 mg (0.0238 mg/kg), oral, Daily, First dose on 07/03/22 at 2145 Given 07/13/2022 9:34 AM BOTTLE FILLER 1 mg Given 07/12/2022 8:21 AM BOTTLE FILLER 1 mg Given 07/10/2022 10:35 AM BOTTLE FILLER 1 mg gadoterate meglumine injection 20 mL 20 mL (0.499 mL/kg), intravenous, Once in imaging, contrast, Starting on 07/05/22 at 1256, For 1 dose Contrast Given 07/05/2022 1:08 PM BOTTLE FILLER 8 mL HYDROmorphone (DILAUDID) injection 0.2 mg 0.2 mg (0.22795 mg/kg), intravenous, Administer over 2 Minutes, Once, On 07/06/22 at 1230, For 1 dose Given 07/06/2022 11:58 AM BOTTLE FILLER 0.2 mg HYDROmorphone (DILAUDID) injection 0.2 mg 0.2 mg (0.59278 mg/kg), intramuscular, Administer over 2 Minutes, Once, On 07/10/22 at 1530, For 1 dose Given 07/10/2022 3:03 PM BOTTLE FILLER 0.2 mg Left Deltoid ioversoL (OPTIRAY 350) syringe 125 mL 125 mL (3.13 mL/kg), intravenous, Once in imaging, contrast, Starting on 07/03/22 at 1126, For 1 dose Contrast Given 07/03/2022 11:30 AM BOTTLE FILLER 90 mL ketorolac (TORADOL) 15 mg/mL injection 15 mg 15 mg (0.373 mg/kg), intravenous, Once, On 07/10/22 at 1630, For 1 dose, For Adult IV push, administer over 15 seconds Given 07/10/2022 6:40 PM BOTTLE FILLER 15 mg Lactated Ringer's (LR) bolus 1,000 mL 1,000 mL (25.1 mL/kg), intravenous, Once, On 07/03/22 at 0928, For 1 dose New Bag 07/03/2022 10:12 AM BOTTLE FILLER 1,000 mL Lactated Ringer's (LR) bolus 1,000 mL 1,000 mL (23.8 mL/kg), intravenous, at 250 mL/hr, Administer over 4 Hours, Once, On 07/03/22 at 2215, For 1 dose New Bag 07/03/2022 9:50 PM BOTTLE FILLER 1,000 mL 250 mL/hr lidocaine (GLYDO) 2 % jelly 100 mg 100 mg (2.49 mg/kg = 5 mL), topical, 2 times daily PRN, other, for NG tube discomfort, Starting on Tue07/12/22 at 1517 Given 07/12/2022 5:49 PM BOTTLE FILLER 100 mg lidocaine (LIDODERM) 5 % patch 1 patch 1 patch, transdermal, Administer over 12 Hours, Daily, First dose on Tue07/04/22 at 0900, Do not cover the holes on the top side of the patch., Apply to affected area: chest Medication Applied 07/13/2022 9:33 AM BOTTLE FILLER 1 patch Chest Medication Applied 07/12/2022 8:22 AM BOTTLE FILLER 1 patch Chest Medication Applied 07/11/2022 9:06 AM BOTTLE FILLER 1 patch Other (Comment) LORazepam (ATIVAN) injection 0.25 mg 0.25 mg (0.65016 mg/kg), intravenous, Every 6 hours PRN, other, nausea/vomiting second line, Starting on Tue07/05/22 at 0955, For IV administration, dilute with equal volume of 0.9% sodium chloride to a final concentration of 1 mg/mL. Do not exceed a rate of 2 mg/minute Given 07/09/2022 11:50 AM BOTTLE FILLER 0.25 mg Given 07/08/2022 12:25 PM BOTTLE FILLER 0.25 mg Given 07/07/2022 3:47 PM BOTTLE FILLER 0.25 mg LORazepam (ATIVAN) injection 0.5 mg 0.5 mg (0.0125 mg/kg), intravenous, Every 6 hours PRN, other, nausea/vomiting second line, Starting on Tue07/09/22 at 1521, For IV administration, dilute with equal volume of 0.9% sodium chloride to a final concentration of 1 mg/mL. Do not exceed a rate of 2 mg/minute Given 07/11/2022 9:49 AM BOTTLE FILLER 0.5 mg Given 07/10/2022 4:24 PM BOTTLE FILLER 0.5 mg Given 07/09/2022 7:09 PM BOTTLE FILLER 0.5 mg morphine injection 1 mg 1 mg (0.0249 mg/kg), intravenous, Administer over 4 Minutes, Once, On [place]aleigh 07/08/22 at 0830, For 1 dose Given 07/08/2022 8:05 AM BOTTLE FILLER 1 mg morphine injection 1 mg 1 mg (0.0249 mg/kg), intravenous, Administer over 4 Minutes, Once, On Tue07/09/22 at 1200, For 1 dose Given 07/09/2022 11:34 AM BOTTLE FILLER 1 mg morphine injection 2 mg 2 mg (0.0499 mg/kg), intravenous, Administer over 4 Minutes, Every 4 hours PRN, 3rd line for pain, Starting on Tue07/09/22 at 1521 Given 07/11/2022 3:32 PM BOTTLE FILLER 2 mg Given 07/11/2022 8:55 AM BOTTLE FILLER 2 mg Given 07/09/2022 10:58 PM BOTTLE FILLER 2 mg multivitamin with folic acid 400 mcg tablet 1 tablet 1 tablet, oral, Daily, First dose on Tue07/04/22 at 0900 Given 07/13/2022 9:34 AM BOTTLE FILLER 1 tablet Given 07/12/2022 8:22 AM BOTTLE FILLER 1 tablet Given 07/10/2022 10:35 AM BOTTLE FILLER 1 tablet ondansetron (ZOFRAN) injection 4 mg 4 mg (0.1 mg/kg), intravenous, Administer over 2 Minutes, Once, On 07/03/22 at 0928, For 1 dose Given 07/03/2022 10:11 AM BOTTLE FILLER 4 mg ondansetron (ZOFRAN) injection 4 mg 4 mg (0.0998 mg/kg), intravenous, Administer over 2 Minutes, Every 8 hours PRN, nausea, vomiting, Starting on Tue07/04/22 at 1501 Given 07/04/2022 10:15 PM BOTTLE FILLER 4 mg ondansetron (ZOFRAN) injection 4 mg 4 mg (0.0998 mg/kg), intravenous, Administer over 2 Minutes, Once, On Tue07/05/22 at 0130, For 1 dose Given 07/05/2022 4:28 AM BOTTLE FILLER 4 mg ondansetron (ZOFRAN) injection 4 mg 4 mg (0.0998 mg/kg), intravenous, Administer over 2 Minutes, Every 8 hours PRN, nausea, vomiting, 1st line, Starting on Tue07/05/22 at 0957 Given 07/08/2022 6:50 AM BOTTLE FILLER 4 mg Given 07/07/2022 8:46 PM BOTTLE FILLER 4 mg Given 07/06/2022 8:34 PM BOTTLE FILLER 4 mg ondansetron (ZOFRAN) injection 4 mg 4 mg (0.0998 mg/kg), intravenous, Administer over 2 Minutes, Once, On 07/06/22 at 2245, For 1 dose Given 07/06/2022 10:17 PM BOTTLE FILLER 4 mg ondansetron (ZOFRAN) injection 4 mg 4 mg (0.0998 mg/kg), intravenous, Administer over 2 Minutes, Every 8 hours, First dose (after last modification) on Kaleigh 07/08/22 at 1530 Given 07/13/2022 9:33 AM BOTTLE FILLER 4 mg Given 07/12/2022 11:49 PM BOTTLE FILLER 4 mg Given 07/12/2022 2:52 PM BOTTLE FILLER 4 mg pantoprazole (PROTONIX) 4 mg/mL injection 40 mg 40 mg (0.95 mg/kg), intravenous, Administer over 2 Minutes, Daily, First dose on 07/03/22 at 2230, For IV Push administration for adults- 40 mg vial: add 10 mL of sodium chloride 0.9% to achieve a final concentration of 4 mg/mL, Indications: Treatment of Non-Bleeding Gastric DisorderIndications:Treatment of Non-Bleeding Gastric Disorder Given 07/13/2022 9:33 AM BOTTLE FILLER 40 mg Given 07/12/2022 8:21 AM BOTTLE FILLER 40 mg Given 07/11/2022 8:59 AM BOTTLE FILLER 40 mg phenoL (CHLORASEPTIC) 1.4 % oral spray 1 spray 1 spray, mouth/throat, Every 4 hours PRN, sore throat, Starting on 07/12/22 at 2249 Given 07/13/2022 7:29 AM BOTTLE FILLER 1 spray Given 07/13/2022 3:21 AM BOTTLE FILLER 1 spray polyethylene glycol (MIRALAX) packet 17 g 17 g, oral, Daily, First dose on 07/11/22 at 1415, Indications: constipationIndications:constipation Given 07/13/2022 9:33 AM BOTTLE FILLER 17 g Given 07/12/2022 8:21 AM BOTTLE FILLER 17 g Given 07/11/2022 3:32 PM BOTTLE FILLER 17 g ramelteon (ROZEREM) tablet 8 mg 8 mg (0.19 mg/kg), oral, Nightly PRN, sleep, Starting on 07/03/22 at 2102, Indications: Sleep-Onset InsomniaIndications:Slee p-Onset Insomnia Given 07/03/2022 9:55 PM BOTTLE FILLER 8 mg scopolamine patch 72 hour 1 patch 1 patch, transdermal, Administer over 72 Hours, Every 72 hours, First dose on Tue07/05/22 at 1030 Medication Applied 07/08/2022 10:19 AM BOTTLE FILLER 1 patch Behind Left Ear Medication Applied 07/05/2022 1:44 PM BOTTLE FILLER 1 patch Behind Left Ear senna 1.76 mg/mL syrup 8.8 mg 8.8 mg (0.219 mg/kg), oral, 2 times daily PRN, constipation, Starting on Tue07/11/22 at 1333 Given 07/11/2022 4:06 PM BOTTLE FILLER 8.8 mg sodium chloride 0.9% flush 0.5-20 mL 0.5-20 mL (0.0125-0.4988 mL/kg), intra-catheter, Every 8 hours scheduled, First dose on Tue07/06/22 at 1630, Pre-Op/Floor (GI), Flush volume based on line type and size. Given 07/07/2022 6:49 AM BOTTLE FILLER 10 mL Given 07/06/2022 8:39 PM BOTTLE FILLER 10 mL Given 07/06/2022 3:52 PM BOTTLE FILLER 10 mL sodium chloride 0.9% infusion 30 mL/hr, intravenous, Continuous, Starting on Tue07/07/22 at 1100, For 6 hours, Pre-Procedure (GI) Rate/Dose Verify 07/07/2022 11:22 AM BOTTLE FILLER 30 mL/h r New Bag 07/07/2022 10:33 AM BOTTLE FILLER 30 mL/hr 30 mL/hr traMADoL (ULTRAM) tablet 50 mg 50 mg (1.25 mg/kg), oral, 4 times daily PRN, 2nd line for pain, Starting on Tue07/07/22 at 1536 Given 07/08/2022 4:55 PM BOTTLE FILLER 50 mg documented in this encounter Discontinued [...] Recently Administered Medications Times are shown in BOTTLE FILLER. Scheduled Medication Order 07/11/2022 07/12/2022 07/13/2022 enoxaparin [...] 2 minutes 1452 (Given - Provider: Rebecca Avila, MERA)1531 (Not Given - Provider: Rebecca Avila RN - Reason: Other - Comment: see mar)2333 (Given - Provider: Bridgette Santiago RN) 1116 [...] 0906 (Medication Applied - Provider: Angelica Barnes RN)215 (Medication Removed - Provider: Bridgette Santiago RN) 08 (Medication Applied - Provider: Rebecca Avila RN)2051 (Medication Removed - Provider: Bridgette Santiago RN [...] to nausea) 0822 (Given - Provider: Rebecca Avila RN) 0934 [...] Bridgette Santiago RN) 0821 (Given - Provider: Rebecac Avila RN)1452 (Given - Provider: Rebecca Avila RN)2349 (Given - Provider: Bridgette Santiago, RN) 0933 (Given - Provider: Rebecca Avila, [...] Barnes RN) 0821 (Given - Provider: Rebecca Avila, RN) 0933 (Given - Provider: Rebecca Avila, RN) polyethylene glycol (MIRALAX) packet 17 g 17 g, oral, Daily, First dose on 07/11/22 at 1415, Indications: constipation 1532 (Given - Provider: Angelica Barnes RN) 0821 (Given - Provider: Rebecca Avila, MERA) 0933 (Given - Provider: Rebecca Avila, RN) scopolamine patch 72 hour 1 patch [...] Indications: Fever, Pain 0322 (Given - Provider: Bridgettedarren Santiago RN) 2106 (Given - Provider: Bridgette [...] at 1521 0855 (Given - Provider: Angelica Barnes RN)1532 (Given - Provider: Angelica Barnes RN) phenoL (CHLORASEPTIC) 1.4 % oral spray 1 spray 1 spray, mouth/throat, Every 4 hours PRN, sore throat, Starting on Tue07/12/22 at 2249 0321 (Given - Provider: Bridgette Santiago RN)0729 (Given - Provider: Bridgette Santiago, MERA) ramelteon (ROZEREM) tablet 8 mg 8 mg (0.19 mg/kg), oral, Nightly PRN, sleep, Starting on Tue07/03/22 at 2102, Indications: Sleep-Onset Insomnia senna 1.76 mg/mL syrup 8.8 mg 8.8 mg (0.219 mg/kg), oral, 2 times daily PRN, constipation, Starting on Tue07/11/22 at 1333 1606 (Given - Provider: Angelica Barnes RN) traMADoL (ULTRAM) tablet 50 mg 50 mg (1.25 mg/kg), oral, 4 times daily PRN, 2nd line for pain, Starting on Tue07/07/22 at 1536 documented in this encounter Orders Medications Ordered That Earle ht Not Have Been Administered Count Last Ordered Date First Ordered Date ondansetron (ZOFRAN) injection 4 mg 2 07/1107/05/2022 Carrier Fluids for Secondary Infusion - 0.9% Sodium Chloride 1 07/06/2022 sodium chloride 0.9% flush 0.5-20 mL 1 06/20 prochlorperazine (COMPAZINE) injection 5 mg 1 07/03/2022 prochlorperazine (COMPAZINE) tablet 5 mg 1 07/03/2022 thiamine (VITAMIN B1) tablet 100 mg 1 [...] COVID: Suspected 07/03/2022 07/03/2022 07/03/2022 11:07 AM BOTTLE FILLER documented as of this encounter Care Teams Senior Informatic[employer] Developer Relationship Specialty Start Date End Date No Physician PCP - General 07/03/22 07/03/22 Rita Lynn MD [address] [place] [id number] PCP - General Pediatrics 07/04/22 Moraima Physician 07/03/22 documented as of this encounter
--- OUTSIDE RECORDS SUMMARY | 2024-07-02 08:04 | XMS_ITS | Encounter Summary ---
Author Organization [facility] Address [address] [place] [address] Care Team Providers Care Pond Worker Name Role Phone Rita Lynn MD Primary Care Provider [phone] Encounter Details Date Type Department Care Team [...] on filedocumented in this encounter Care Teams Pond Worker Relationship Specialty Start Date End Date Rita Lynn MD [address] [place] [phone] PCP - General Pediatrics 09/13/19 documented as of this encounter
--- OUTSIDE RECORDS SUMMARY | 2024-07-02 08:04 | XMS_ITS | Patient Health Summary ---
Author Organization [facility] Address [address] [place] [address] Care Team Providers Care Fishing Instructor Name Role Phone Rita Lynn MD Primary Care Provider [phone] Note from [facility],non-owned Affiliates and Associated Physician Practices is amultiple site organization consisting of ambulatory clinics and hospital sitesin [place], [place], [place] and [place]. This disclosure is being madepursuant to the Care Everywhere program and may not contain all information available regarding this patient. Last updated [email or web address].[email or web address] [email or web address] Allergies No known active allergies Medications * [...] Comments Blood Pressure 120/90 2022 12:50 PM AUTO TRANSPORT DRIVER Pulse 70 2022 12:50 PM AUTO TRANSPORT DRIVER Temperature 37.1 ??C (98.7 ??F) 2022 12:50 PM C Respiratory Rate 18 2022 12:50 PM AUTO TRANSPORT DRIVER Oxygen Saturation 98% 2022 12:50 PM AUTO TRANSPORT DRIVER Inhaled Oxygen Concentration - - Weight 44.7 kg (98 lb 8.7 oz) 2022 8:53 AM AUTO TRANSPORT DRIVER Height 175 cm (5' 8.9 ) 2022 8:53 AM AUTO TRANSPORT DRIVER Body Mass Index 14.6 2022 8:53 AM AUTO TRANSPORT DRIVER Procedures * HCG URINE QUALITATIVE - POCT (IP) INTERFACED(Performed 2022) * LIPASE BLOOD(Performed 2022) * URINE DRUG SCREEN IMMUNOASSAY(Performed 2022) * COMPREHENSIVE METABOLIC PANEL(Performed 2022) * HCG URINE QUAL POCT NOTIFICATION(Performed 2022) Results * HCG URINE QUALITATIVE - POCT (IP) INTERFACED (2022 10:21 AM [facility]) Pathologist [facility] HCG Qual Urine Negative Negative 2022 10:32 AM [facility] Urine URINE / Unknown 2022 1 0:21 AM AUTO TRANSPORT DRIVER 2022 10:32 AM [facility] Bennett Mcrae MD LAB - POINT OF CARE ORDERABLES Performing Organization Address City/State/[facility] Co de Phone Number [facility] [address] [place], [place] [id number] * (ABNORMAL) COMPREHENSIVE METABOLIC PANEL (2022 10:18 AM [facility]) [facility] BUN 10 5 - 19 mg/dL 2022 10:53 AM [facility] Creatinine 0.79 0.56 - 0.96 mg/dL 2022 10:53 AM [facility] Sodium 141 136 - 145 mmol/L 2022 10:53 AM [facility] Potassium 4.0 3.5 - 5.1 mmol/L 2022 10:53 AM [facility] Chloride 107 98 - 107 mmol/L 2022 10:53 AM [facility] CO2 25 20 - 28 mmol/L 2022 10:53 AM [facility] Glucose 107 70 - 115 mg/dL 2022 10:53 AM [facility] Calcium 10.1 8.4 - 10.2 mg/dL 2022 10:53 AM [facility] Protein Total 7.6 6.0 - 8.3 g/dL 2022 10:53 AM [facility] Albumin 4.4 3.4 - 5.0 g/dL 2022 10:53 AM [facility] Bilirubin Total 1.1 0.3 - 1.2 mg/dL 2022 10:53 AM [facility] Alkaline Phosphatase 56(L) 100 - 390 U/L 2022 10:53 AM [facility] ALT 10 5 - 55 U/L 2022 10:53 AM [facility] AST 21 3 - 35 U/L 2022 10:53 AM [facility] Anion Gap 13 8 - 18 2022 10:53 AM [facility] BUN/Creatinine Ratio 13 7 - 23 2022 10:53 AM [facility] Osmolality Calculated 292 270 - 300 mOsm/kg 2022 10:53 AM [facility] Blood BLOOD SPECIMEN / Unknown Venipuncture / Unknown 2022 10:18 AM [facility] 2022 10:27 AM [facility] Bennett Mcrae MD LAB - CHEMISTRY GEOVANNA GODINEZ [facility] Organization Address City/State/ZIP Co de Phone Number [facility] [address] [place] [id number] [phone] * (ABNORMAL) URINE DRUG SCREEN IMMUNOASSAY (2022 10:18 AM [facility]) [facility] Amphetamines Screen Urine Negative Negative : < 1000 ng/mL 2022 10:46 AM [facility] Barbiturates Screen Urine Negative Negative : < 200 ng/mL 2022 10:46 AM [facility] Benzodiazepine Screen Urine Negative Negative : < 200 ng/mL 2022 10:46 AM [facility] Opiates Urine Negative Negative : < 300 ng/mL 2022 10:46 AM [facility] Cocaine Metabolites Urine Negative Negative : < 300 ng/mL 2022 10:46 AM [facility] Phencyclidine Screen Urine Negative Negative : < 25 ng/ml 2022 10:46 AM [facility] Cannabinoids Screen Urine Positive(A) Negative : <50 ng/mL 2022 10:46 AM [facility] Comment:Positive urine canna binoids (THC) screening results should be confirmed by another generally accepted non-immunological method such as gas chromatography or mass spectrometry. Methadone Screen Urine Negative Negative : < 300 ng/mL 2022 10:46 AM [facility] Fentanyl Screen Urine Negative Negative : <1.5 ng/mL 2022 10:46 AM [facility] Urine URINE / Unknown Collection / Unknown 2022 10:18 AM [facility] 2022 10:23 AM [facility] - 2022 10:46 AM [facility] The Urine Toxicology Screening Panel does not screen for Propoxyphene, Meprobamate, Carisoprodol, Trazodone, yojk-kjl-gdwwify medications and/or volatiles (Acetone, Isopropanol, Methanol or Ethylene Glycol). Ethanol, Salicylate, Acetaminophen, Tricyclic Antidepressants and several therapeutic drugs may be individually assayed in serum or plasma specimen. Toxicology testing by the [facility] is an aid to medical diagnosis and treatment of patients. No documented chain of custody was maintained. Results are intended to be used for clinical purposes only. ? Bennett Mcrae MD LAB - URINE CHEMISTR Y ORDERABLES Performing Organization Address [facility] Co de Phone Number [facility] [address] [place] [address], [place] [phone] * LIPASE BLOOD (2022 10:18 AM AUTO TRANSPORT DRIVER) Lipase 31 8 - 78 U/L 2022 10:54 AM AUTO TRANSPORT DRIVER [facility] Blood BLOOD SPECIMEN / Unknown Venipuncture / Unknown 2022 10:18 AM AUTO TRANSPORT DRIVER 2022 10:27 AM AUTO TRANSPORT DRIVER Narrative [facility] - 2022 10:54 AM AUTO TRANSPORT DRIVER Lipase results from the [employer] Alinity analyzer may not be comparable with other methodologies. Bennett Mcrae MD LAB - CHEMISTRY ORDE RABLES Performing Organization Address [facility] Co de Phone Number [facility] [address] [place] [address], [place] [phone] * HCG URINE QUAL POCT NOTIFICATION (2022 9:38 AM AUTO TRANSPORT DRIVER) Comment Notification Label Only - See Separate Report 2022 11:30 AM AUTO TRANSPORT DRIVER [facility] Urine URINE / Unknown 2022 9 :38 AM AUTO TRANSPORT DRIVER 2022 10:20 AM AUTO TRANSPORT DRIVER Bennett Mcrae MD LAB - URINALYSIS ORD ERABLES Performing Organization Address [facility] Co de Phone Number [facility] [place] [address] Care Teams Fishing Instructor Relationship Specialty Start Date End Date Rita Lynn MD [address] [place] [phone] PCP - General Pediatrics 09/13/19
--- OUTSIDE RECORDS SUMMARY | 2024-07-02 08:04 | XMS_ITS | Referral Summary ---
Author Organization [facility] Address [address] [place] [address] Care Team Providers Care Taxation Agent Name Role Phone Rita Lynn MD Primary Care Provider [phone] Source Comments [facility],non-owned Affiliates and Associated Physician Practices is amultiple site organization consisting of ambulatory clinics and hospital sitesin [place], [place], [place] and [place]. This disclosure is being madepursuant to the Care Everywhere program and may not contain all information available regarding this patient. Last updated 18.[facility] [employer] Allergies No known active allergies Medications * [...] Comments Blood Pressure 120/90 2022 12:50 PM MANAGER ETL Pulse 70 2022 12:50 PM MANAGER ETL Temperature 37.1 ??C (98.7 ??F) 2022 12:[address] Respiratory Rate 18 2022 12:50 PM MANAGER ETL Oxygen Saturation 98% 2022 12:50 PM MANAGER ETL Inhaled Oxygen Concentration - - Weight 44.7 kg (98 lb 8.7 oz) 2022 8:53 AM MANAGER ETL Height 175 cm (5' 8.9 ) 2022 8:53 AM MANAGER ETL Body Mass Index 14.6 2022 8:53 AM MANAGER ETL Plan of Treatment Not on file Care Teams Taxation Agent Relationship Specialty Start Date End Date Rita Lynn MD [address] [place] [phone] PCP - General Pediatrics 09/13/19
--- OUTSIDE RECORDS SUMMARY | 2024-07-02 08:04 | XMS_ITS | Encounter Summary ---
Author Organization [facility] Address [address] [place] [address] Care Team Providers Care Journeyman Level Acoustic Analyst Name Role Phone Rita Lynn MD Primary Care Provider Encounter Details Date Type Department Care Team [...] on filedocumented in this encounter Care Teams Journeyman Level Acoustic Analyst Relationship Specialty Start Date End Date Rita Lynn MD [address] [place] [phone] PCP - General Pediatrics 09/13/19 documented as of this encounter
--- OUTSIDE RECORDS SUMMARY | 2024-07-02 08:04 | XMS_ITS | Clinical Summary ---
Author Organization [facility] Address [address] [place] [address]. [place] [address] [place] [address] Care Team Providers Care Chief Cruiser Name Role Phone None, Provider MD Primary [...] Department Care Team Description 2024 12:27 PM THERAPEUTIC SPECIALIST - 2024 2:03 PM [facility] Emergency [facility] [place] [address] Komal George PA Vomiting Discharge Disposition: Home or Self Care (Routine Discharge) 2024 Travel 06/24/2024 11:14 AM THERAPEUTIC SPECIALIST - 06/24/2024 4:45 PM THERAPEUTIC SPECIALIST Emergency [facility] [place] [address] Lashell Murray, SKETCH ARTIST Abdominal Pain Discharge Disposition: Home or Self [...] Comments Blood Pressure 126/89 2024 11:21 AM THERAPEUTIC SPECIALIST Pulse 56 2024 11:21 AM THERAPEUTIC SPECIALIST Temperature 36.7 ??C (98.1 ??F) 2024 11:[address] Respiratory Rate 16 2024 11:21 AM THERAPEUTIC SPECIALIST Oxygen Saturation 100% 2024 11:21 AM THERAPEUTIC SPECIALIST Inhaled Oxygen Concentration - - Weight 45.4 kg (100 lb) 2024 11:21 AM THERAPEUTIC SPECIALIST Height 172.7 cm (5' 8 ) 2024 11:21 AM THERAPEUTIC SPECIALIST Body Mass Index 15.2 2024 11:21 AM THERAPEUTIC SPECIALIST Plan of Treatment Health Maintenance Due Date [...] ABD+PEL W CON STAT 2024 1:21 PM THERAPEUTIC SPECIALIST LIPASE STAT 2024 12:43 PM THERAPEUTIC SPECIALIST COMPREHENSIVE METABOLIC PANEL STAT 2024 12:43 PM THERAPEUTIC SPECIALIST CBC W/DIFF AUTOMATED STAT 2024 12:43 PM THERAPEUTIC SPECIALIST POCT URINE (BACK OFFICE) STAT 2024 12:41 PM THERAPEUTIC SPECIALIST DRUG SCREEN RAPID STAT 2024 12: 41 PM THERAPEUTIC SPECIALIST HC URINALYSIS AUTO W/O MICRO STAT 2024 12:41 PM THERAPEUTIC SPECIALIST HC URINALYSIS AUTO W/O MICRO STAT 06/24/2024 1:06 PM THERAPEUTIC SPECIALIST COMPREHENSIVE METABOLIC PANEL STAT 06/24/2024 11:18 AM THERAPEUTIC SPECIALIST LIPASE STAT 06/24/2024 11:18 AM THERAPEUTIC SPECIALIST CBC W/DIFF AUTOMATED STAT 06/24/2024 11:18 AM THERAPEUTIC SPECIALIST from Last 3 Months Results * CT ABD+PEL W IV CON ONLY (2024 1:21 PM THERAPEUTIC SPECIALIST) Anatomical Region Laterality Modality Abdomen Computed Tomogra phy 2024 1:24 PM THERAPEUTIC SPECIALIST Addenda Addendum by Jamarcus Taylor MD on 2024 1:42 PM THERAPEUTIC SPECIALIST [facility] [address] [place], [place] [address] IMPRESSION: 1. ??No acute abnormality identified. 2. ??Right ovarian cyst, 4.7 cm. Referred By: ?? Interpreted By: Jamarcus Taylor MD, 2024 1:40 PM Impressions 2024 1:28 PM THERAPEUTIC SPECIALIST IMPRESSION: Referred By: ?? Interpreted By: Jamarcus Taylor MD, 2024 1:24 PM Narrative 2024 1:28 PM THERAPEUTIC SPECIALIST [address] [address] EXAMINATION: CT ABD+PEL W CON CLINICAL HISTORY: [...] Procedure Note Jamarcus Taylor MD - [address] [address] EXAMINATION: CT ABD+PEL W CON CLINICAL HISTORY: [...] (ABNORMAL) COMPREHENSIVE METABOLIC PANEL (2024 12:43 PM THERAPEUTIC SPECIALIST) Only the most recent of2 resultswithin the time period is included. GLUCOSE 107(H) 70 - 99 MG/DL 2024 1:19 PM [facility] BUN 10 7 - 18 MG/DL 2024 1:19 PM [facility] CREATININE S/P/B 0.65 0.55 - 1.02 MG/DL 2024 1:19 PM [facility] SODIUM S/P/B 136 136 - 145 MMOL/L 2024 1:19 PM [facility] POTASSIUM S/P/B 3.3(L) 3.5 - 5.1 MMOL/L 2024 1:19 PM [facility] CHLORIDE S/P/B 105 97 - 115 MMOL/L 2024 1:19 PM [facility] CO2 24.8 21 - 32 MMOL/L 2024 1:19 PM [facility] CALCIUM S/P/B 8.9 8.5 - 10.1 MG/DL 2024 1:19 PM [facility] BILIRUBIN TOTAL S/P/B 1.2 0.2 - 1.2 MG/DL 2024 1:19 PM [facility] Comment: THIS ASSAY IS NOT RECOMMENDED FOR PATIENTS UNDERGOING TREATMENT WITH ELTROMBOPAG DUE TO THE POTENTIAL FOR FALSELY ELEVATED RESULTS. TOTAL PROTEIN S/P/B 7.1 6.4 - 8.2 G/DL 2024 1:19 PM [facility] ALBUMIN S/P/B 3.8 3.4 - 5.0 G/DL 2024 1:19 PM [facility] AST 17 15 - 37 U/L 2024 1:19 PM [facility] ALT 15 14 - 55 U/L 2024 1:19 PM THERAPEUTIC SPECIALIST [facility] ALKALINE PHOSPHATASE S/P/B 46(L) 50 - 136 U/L 2024 1:19 PM THERAPEUTIC SPECIALIST [facility] ANION GAP 6.2 2 - 10 MMOL/L 2024 1:19 PM THERAPEUTIC SPECIALIST [facility] BUN CREATININE RATIO 15.5 6 - 26 2024 1:19 PM [facility] A/G RATIO 1.2 1.0 - 2.0 RATIO 2024 1:19 PM [facility] GFR ESTIMATE >90 >90 ML/MIN/1.7 3 M2 2024 1:19 PM [facility] Comment: NOTE: eGFR is not calculated for patients <18 years of age or gender unknown. This is an estimated GFR calculation using the new CKD EPI creatinine equation without race and so does not require a correction factor for race. This estimated GFR should not be used for calculating drug doses. 2024 12:4 3 PM THERAPEUTIC SPECIALIST [facility] Final Result [facility] [address] [place] [address], [place] [phone] * (ABNORMAL) CBC W/DIFF AUTOMATED (2024 12:43 PM THERAPEUTIC SPECIALIST) Only the most recent of2 resultswithin the time period is included. WBC 7.51 4.5 - 13.0 x10'3/uL 2024 1:02 PM THERAPEUTIC SPECIALIST [facility] RBC 4.26 4.20 - 5.40 x10'6/uL 2024 1:02 PM THERAPEUTIC SPECIALIST [facility] HGB 12.0 12.0 - 16.0 G/DL 2024 1:02 PM [facility] HCT 35.0(L) 38.0 - 48.0 % 2024 1:02 PM [facility] MCV 82.2 81.0 - 99.0 FL 2024 1:02 PM [facility] MCH 28.2 27.0 - 31.0 PG 2024 1:02 PM [facility] MCHC 34.3 32.0 - 36.0 G/DL 2024 1:02 PM [facility] RDW 13.5 11.5 - 14.5 % 2024 1:02 PM [facility] PLT 176 130 - 400 x10'3/uL 2024 1:02 PM [facility] MPV 10.7 9.3 - 12.2 FL 2024 1:02 PM [facility] DIFFERENTIAL TYPE AUTOMATED DIFFERENTIAL 2024 1:02 PM [facility] NEUTROPHILS % 70.1 % 2024 1:02 PM [facility] LYMPHOCYTES % 21.3 % 2024 1:02 PM [facility] MONOCYTES % 8.0 % 2024 1:02 PM [facility] EOSINOPHILS 0.1 % 2024 1:02 PM [facility] BASOPHILS 0.1 % 2024 1:02 PM [facility] IMMATURE GRANS % 0.4 % 06/26/19 1:02 PM [facility] ABS. NEUTROPHILS 5.26 1.80 - 8.00 x10'3/uL 2024 1:02 PM THERAPEUTIC SPECIALIST [facility] ABS. LYMPHOCYTES 1.60 1.20 - 5.20 x10'3/uL 2024 1:02 PM THERAPEUTIC SPECIALIST [facility] ABS. MONOCYTES 0.60 0.24 - 0.86 x10'3/uL 2024 1:02 PM THERAPEUTIC SPECIALIST [facility] ABS. EOSINOPHILS 0.01(L) 0.04 - 0.36 x10'3/uL 2024 1:02 PM THERAPEUTIC SPECIALIST [facility] ABS. BASOPHILS 0.01 0.01 - 0.08 x10'3/uL 2024 1:02 PM THERAPEUTIC SPECIALIST [facility] ABS. IMMATURE GRANULOCYTES 0.03 0.00 - 0.49 x10'3/uL 2024 1:02 PM THERAPEUTIC SPECIALIST [facility] 2024 12:4 3 PM THERAPEUTIC SPECIALIST [facility] Final Result Performing Organization Address City/[facility]/ZIP Co de Phone Number [facility] [address] [place] [address], [place] [phone] * LIPASE (2024 12:43 PM THERAPEUTIC SPECIALIST) Only the most recent of2 resultswithin the time period is included. LIPASE 39 13 - 75 UNITS/L 2024 1:19 PM THERAPEUTIC SPECIALIST [facility] 2024 12:4 3 PM THERAPEUTIC SPECIALIST [place] [facility] Final Result [facility] [address] [place] [address], [place] [phone] * POCT urine (2024 12:41 PM THERAPEUTIC SPECIALIST) URINE HCG TEST NEGATIVE Internal Control: VALID [facility] POINT OF CARE TEST ORDERABLES Final Result * (ABNORMAL) DRUG SCREEN RAPID (2024 12:41 PM THERAPEUTIC SPECIALIST) AMPHETAMINE (U) NEGATIVE NEGATIVE 1:15 PM THERAPEUTIC SPECIALIST [facility] BARBITURATES SCREEN (U) NEGATIVE NEGATIVE 2024 1:15 PM THERAPEUTIC SPECIALIST [facility] BENZODIAZEPINES SCREEN (U) NEGATIVE NEGATIVE 2024 1:15 PM THERAPEUTIC SPECIALIST [facility] CANNABINOIDS SCREEN (U) POSITIVE(A) NEGATIVE 2024 1:15 PM THERAPEUTIC SPECIALIST [facility] COCAINE METABOLITES (U) NEGATIVE NEGATIVE 2024 1:15 PM THERAPEUTIC SPECIALIST [facility] METHADONE (U) NEGATIVE NEGATIVE 2024 1:15 PM THERAPEUTIC SPECIALIST [facility] OPIATE SCREEN (U) NEGATIVE NEGATIVE 025 1:15 PM [facility] PHENCYCLIDINE PCP (U) NEGATIVE NEGATIVE 2024 1:15 PM [facility] Comment: NOTE: RESULTS OF THIS DRUG SCREEN SHOULD BE USED FOR MEDICAL PURPOSES ONLY AND NOT FOR LEGAL OR EMPLOYMENT PURPOSES. POSITIVE RESULTS ARE NOT CONFIRMED. MEDICATIONS CONTAINING EPHEDRINE MAY CAUSE FALSE POSITIVE AMPHETAMINE CALL [phone], LAB, TO REQUEST CONFIRMATION TESTING. IF CREATININE IS <40 mg/dL. ??RECOLLECTION IS SUGGESTED. AMPHETAMINE- ?500 NG/ML BARBITURATE- ?200 NG/ML BENZODIAZEPINES- ??200 NG/ML THC- ? 50 NG/ML COCAINE- ?150 NG/ML METHADONE- ?300 NG/ML OPIATE- ? 300 MG/ML PCP- ? 25 NG/ML CREATININE (U) 241.0(H) 28 - 217 MG/DL 2024 1:15 PM [facility] URINE SPECIMEN / Unknown 2024 12:41 PM THERAPEUTIC SPECIALIST [facility] URINE ORDERABLES Final Result [facility] [address] [place] [address], * (ABNORMAL) URINALYSIS (2024 12:41 PM THERAPEUTIC SPECIALIST) Only the most recent of2 resultswithin the time period is included. SPECIMEN TYPE URINE CLEAN CATCH 2024 12:43 PM [facility] COLOR (U) YELLOW 2024 12:53 PM [facility] TRANSPARENCY CLEAR 2024 12:53 PM [facility] SPECIFIC GRAVITY (U) 1.030 1.001 - 1.030 2024 12:53 PM [facility] U PH 7.0 5.0 - 9.0 2024 12:53 PM [facility] LEUKOCYTES (U) 25(A) NEGATIVE 2024 12:53 PM [facility] NITRITES NEGATIVE NEGATIVE 2024 12:53 PM [facility] PROTEIN RANDOM (U) 20 <30 MG/DL 2024 12:53 PM [facility] GLUCOSE (U) NORMAL NORMAL MG/DL 2024 12:53 PM THERAPEUTIC SPECIALIST [facility] KETONES MG/DL (U) 60(A) NEGATIVE MG/DL 2024 12:53 PM THERAPEUTIC SPECIALIST [facility] UROBILINOGEN 4.0(A) NORMAL MG/DL 2024 12:53 PM THERAPEUTIC SPECIALIST [facility] BILIRUBIN (U) NEGATIVE NEGATIVE MG/DL 2024 12:53 PM THERAPEUTIC SPECIALIST [facility] BLOOD (U) 3+(A) NEGATIVE 2024 12:53 PM THERAPEUTIC SPECIALIST [facility] MUCUS RARE /LPF 2024 12:53 PM THERAPEUTIC SPECIALIST [facility] WBC/HPF 4 <6 /HPF 2024 12:53 PM THERAPEUTIC SPECIALIST [facility] RBC/HPF >100(H) <6 /HPF 2024 12:53 PM THERAPEUTIC SPECIALIST [facility] SQUAMOUS EPITHELIALS RARE /HPF 2024 12:53 PM THERAPEUTIC SPECIALIST [facility] URINE SPECIMEN OBTAINED BY CLEAN CATCH PROCEDURE / Unknown 2024 12:41 PM THERAPEUTIC SPECIALIST us [facility] URINE ORDERABLES Final Result [facility] [address] [place] [address], from Last 3 Months Insurance Care Teams Chief Cruiser Relationship Specialty Start Date End Date None, Provider, PCP - General 02/26/21
--- OUTSIDE RECORDS SUMMARY | 2024-07-02 08:04 | XMS_ITS | Encounter Summary ---
Author Organization [facility] Address [address] [place] [address] Care Team Providers Care Energy Broker Name Role Phone Rita Lynn MD Primary Care Provider [phone] Reason for Visit * Reason Comments Vomiting Per grandmother- Pat ient has been sick with vomiting since 06/15, unable to keep fluids down. No diarrhea. No know fevers at home. Last emesis river captain, no blood. States her whole body hurts, mostly when she vomits. Encounter Details Date Type Department Care Team (Late st Contact Info) Description 2022 8:58 AM TESTER ARMATURE OR FIELDS - 2022 1:19 PM TESTER [facility]URE [facility] FIELDS Emergency ER at [address] [address] Bennett Mcrae MD [address] [place] [phone] Gastroenteritis; Nausea and vomiting, unspecified vomiting type [...] Comments Blood Pressure 120/90 2022 12:50 PM TE[facility] FIELDS Pulse 70 2022 12:50 PM TE[facility]URE [facility] FIELDS Temperature 37.1 ??C (98.7 ??F) 2022 1 2:50 PM TESTER [facility] FIELDS Respiratory Rate 18 2022 12:5 0 PM TESTER [facility]URE [facility] FIELDS Oxygen Saturation 98% 2022 12: 50 PM TESTER [facility]URE [facility] FIELDS Inhaled Oxygen Concentration - - Weight 44.7 kg (98 lb 8.7 oz) 2022 8:53 AM TE[facility] FIELDS Height 175 cm (5' 8.9 ) 2022 8:53 AM TE[facility] FIELDS Body Mass Index 14.6 2022 8:53 AM TESTER [facility]URE OR FIELDS Body Mass Index Percentile 0.00% 2022 8:5 3 AM TESTER ARMATURE OR FIELDS Growth Chart: [facility] (Girls, 2- 20 Years) documented in this encounter Discharge Instructions * Discharge Instructions* Xuan Goss MD - 2022 1:04 PM TESTER AR[facility]URE [facility] FIELDS - take Zofran every 6 hours as [...] whites of your eyes - Can't urinate ER [facility] FIELDS documented in this encounter Medications at Time [...] PO at time of discharge. NAD observed. ER [facility] FIELDS * Xuan Goss MD - 2022 9:12 AM CST [facility] Cqkuxkfet-Ed-Uzjs[facility] ED Encounter Note A bcoqafoql-ro-prmouvij working with a supervising attending writes the following note. As such, the note will be abbreviated specifying obando portions of the ED encounter. A more complete note of the ED encounter from the supervising attending physician can be found in the medical record. HISTORY Provider contact with the patient: 2022 Lorrainecary Pacheco [id number] Chief Complaint Patient presents with ??? Vomiting Per grandmother- Patient has been sick with vomiting since 06/15, unable to keep fluids down. No diarrhea. No know fevers at home. Last emesis river captain, no blood. States her whole body [...] unspecified vomiting type Disposition: D/c home; stable ER [facility] FIELDS * Bennett Mcrae MD - 2022 9:07 AM CST Provider contact with the patient: 2022 9:07 AM [facility] Lorraine Pacheco [id number] History Chief Complaint Patient presents with ??? Vomiting Per grandmother- Patient has been sick with vomiting since 06/15, unable to keep fluids down. No diarrhea. No know fevers at home. Last emesis river captain, no blood. States her whole body hurts, mostly when she vomits. Chief complaint narrative was entered by triage nurse, not by physician. I have read the resident/medical student/DIRECTOR OF INVESTIGATIONS history. Unless appended by me below, I [...] all negative except as noted in resident/medical student/DIRECTOR OF INVESTIGATIONS and attending HPI/ROS. Constitutional: No activity change, appetite change or fever HENT: No congestion or rhinorrhea Respiratory: No cough or wheezing Cardiovascular: Negative GI: No diarrhea +vomiting +abdominal pain : No decreased urine output MS: Negative Neuro: Negative Skin: No rash or wounds All other systems negative except as noted above. Physical Exam I have reviewed the resident/medical student/DIRECTOR OF INVESTIGATIONS physical exam. Unless appended by me below, [...] patient to follow-up with: Rita Lynn MD [address] [place] [phone] As needed, If symptoms worsen Disposition: [...] plan except if revised in my note. ER [facility] FIELDS documented in this encounter Plan of Treatment Not on file documented as of this encounter Procedures Procedure Name Priority Date/Time Associated Diagnosis Comments HCG URINE QUALITATIVE - POCT (IP) INTERFACED Routine 2022 10:21 AM TE[facility] FIELDS COMPREHENSIVE METABOLIC PANEL STAT 2022 10:18 AM TE[facility] FIELDS URINE DRUG SCREEN IMMUNOASSAY STAT 2022 10:18 AM TE[facility] FIELDS LIPASE BLOOD STAT 2022 10:18 AM TE[facility] FIELDS HCG URINE QUAL POCT NOTIFICATION STAT 2022 9:38 AM TE[facility] FIELDS documented in this encounter Results * HCG URINE QUALITATIVE - POCT (IP) INTERFACED (2022 10:21 AM TE[facility] FIELDS) HCG Qual Urine Negative Negative 2022 10:32 AM TESTER ARMATURE OR FIELDS [facility] Urine URINE / Unknown 2022 1 0:21 AM TESTER [facility] FIELDS 2022 10:32 AM TE[facility] FIELDS Bennett Mcrae MD LAB - POINT OF CARE ORDERABLES [facility] [address] [address] * LIPASE BLOOD (2022 10:18 AM [facility]) Lipase 31 8 - 78 U/L 2022 10:54 AM [facility] Blood BLOOD SPECIMEN / Unknown Venipuncture / Unknown 2022 10:18 AM TE[facility] FIELDS 2022 10:27 AM TE[facility] FIELDS Narrative [facility] - 2022 10:54 AM [facility] Lipase results from the [employer] [facility] [facility] Alinity analyzer may not be comparable with other methodologies. Bennett Mcrae MD LAB - CHEMISTRY ORDE [place] Performing Organization Address City/[facility]/ZIP Co de Phone Number [facility] [address] [place] [address], [facility] [phone] * (ABNORMAL) URINE DRUG SCREEN IMMUNOASSAY (2022 10:18 AM [facility]) Pathologist [facility] Amphetamines Screen Urine Negative Negative : < 1000 ng/mL 2022 10:46 AM [facility] Barbiturates Screen Urine Negative Negative : < 200 ng/mL 2022 10:46 AM [facility] Benzodiazepine Screen Urine Negative Negative : < 200 ng/mL 2022 10:46 AM [facility] Opiates Urine Negative Negative : < 300 ng/mL 2022 10:46 AM [facility] Cocaine Metabolites Urine Negative Negative : < 300 ng/mL 2022 10:46 AM [facility] Phencyclidine Screen Urine Negative Negative : < 25 ng/ml 2022 10:46 AM [facility] Cannabinoids Screen Urine Positive(A) Negative : <50 ng/mL 2022 10:46 AM [facility] Comment:Positive urine canna binoids (THC) screening results should be confirmed by another generally accepted non-immunological method such as gas chromatography or mass spectrometry. Methadone Screen Urine Negative Negative : < 300 ng/mL 2022 10:46 AM [facility] Fentanyl Screen Urine Negative Negative : <1.5 ng/mL 2022 10:46 AM [facility] Urine URINE / Unknown Collection / Unknown 2022 10:18 AM [facility] 2022 10:23 AM [facility] Narrative [facility] - 2022 10:46 AM [facility] The Urine Toxicology Screening Panel does not screen for Propoxyphene, Meprobamate, Carisoprodol, Trazodone, fzce-ukb-qdgsjji medications and/or volatiles (Acetone, Isopropanol, Methanol or Ethylene Glycol). Ethanol, Salicylate, Acetaminophen, Tricyclic Antidepressants and several therapeutic drugs may be individually assayed in serum or plasma specimen. Toxicology testing by the [facility] is an aid to medical diagnosis and treatment of patients. No documented chain of custody was maintained. Results are intended to be used for clinical purposes only. ? Bennett Mcrae MD LAB - URINE CHEMISTR Y ORDERABLES Performing Organization Address [facility]/State/[facility] Co de Phone Number [facility] [address] [place] [address], [place] [phone] * (ABNORMAL) COMPREHENSIVE METABOLIC PANEL (2022 10:18 AM [facility]) BUN 10 5 - 19 mg/dL 2022 10:53 AM [facility] Creatinine 0.79 0.56 - 0.96 mg/dL 2022 10:53 AM [facility] Sodium 141 136 - 145 mmol/L 2022 10:53 AM [facility] Potassium 4.0 3.5 - 5.1 mmol/L 2022 10:53 AM [facility] Chloride 107 98 - 107 mmol/L 2022 10:53 AM [facility] CO2 25 20 - 28 mmol/L 2022 10:53 AM [facility] Glucose 107 70 - 115 mg/dL 2022 10:53 AM [facility] Calcium 10.1 8.4 - 10.2 mg/dL 2022 10:53 AM [facility] Protein Total 7.6 6.0 - 8.3 g/dL 2022 10:53 AM [facility] Albumin 4.4 3.4 - 5.0 g/dL 2022 10:53 AM [facility] Bilirubin Total 1.1 0.3 - 1.2 mg/dL 2022 10:53 AM [facility] Alkaline Phosphatase 56(L) 100 - 390 U/L 2022 10:53 AM [facility] ALT 10 5 - 55 U/L 2022 10:53 AM [facility] AST 21 3 - 35 U/L 2022 10:53 AM [facility] Anion Gap 13 8 - 18 2022 10:53 AM [facility] BUN/Creatinine Ratio 13 7 - 23 2022 10:53 AM [facility] Osmolality Calculated 292 270 - 300 mOsm/kg 2022 10:53 AM [facility] Blood BLOOD SPECIMEN / Unknown Venipuncture / Unknown 2022 10:18 AM [facility] 2022 10:27 AM [facility] Bennett Mcrae MD LAB - CHEMISTRY ORDE R[place] [facility] [address] [place] [address], [facility] [phone] * HCG URINE QUAL POCT NOTIFICATION (2022 9:38 AM TE[facility]) Comment Notification Label Only - See Separate Report 2022 11:30 AM TE[facility] FIELDS [facility] Urine URINE / Unknown 2022 9 :38 AM TE[facility] FIELDS 2022 10:20 AM [facility] Bennett Mcrae MD LAB - URINALYSIS ORD ERABLES Performing Organization Address City/[facility]/ZIP Co de Phone Number [facility] [address] [place] [address] documented in this encounter Visit Diagnoses Diagnosis [...] in NS. $ Given 2022 12:14 PM TE[facility] 20 mg lactated ringers IV BOLUS 1,000 mL 1,000 mL, Intravenous, ONCE, 1 dose, On 06/26/22 at 1000 $ New Bag/Syringe 2022 10:28 AM TE[facility] FIEL[facility] 1,000 mL ondansetron (disintegrating) (Zofran ODT) tablet 8 mg 8 mg, Oral, NOW, 1 dose, On 06/26/22 at 0900, Dissolved orally on tongue Dissolved orally on tongue $ Given 2022 8:53 AM TE[facility] FIEL[facility] 8 mg Oral Mucosa documented in this encounter Active and Recently Administered Medications Times are shown in [facility]. Scheduled Medication Order 06/24/2022 06/25/2022 2022 esomeprazole [...] RN) documented in this encounter Care Teams Energy Broker Relationship Specialty Start Date End Date Rita Lynn MD [address] [place] [phone] PCP - General Pediatrics 09/13/19 documented as of this encounter
--- OUTSIDE RECORDS SUMMARY | 2024-07-02 08:04 | XMS_ITS | Clinical Summary ---
Author Organization [facility] Address [address] [place] [address] Care Team Providers Care Manager Sql Name Role Phone Rita Lynn MD Primary Care Provider [phone] Source Comments [facility] [employer],non-owned Affiliates and Associated Physician Practices is amultiple site organization consisting of ambulatory clinics and hospital sitesin [place], [place], [place] and [place]. This disclosure is being madepursuant to the Care Everywhere program and may not contain all information available regarding this patient. Last updated 18.[facility] Allergies No known active allergies Medications * [...] Comments Blood Pressure 120/90 2022 12:50 PM BRANCH OFFICER Pulse 70 2022 12:50 PM BRANCH OFFICER Temperature 37.1 ??C (98.7 ??F) 2022 12:[address] Respiratory Rate 18 2022 12:50 PM BRANCH OFFICER Oxygen Saturation 98% 2022 12:50 PM BRANCH OFFICER Inhaled Oxygen Concentration - - Weight 44.7 kg (98 lb 8.7 oz) 2022 8:53 AM BRANCH OFFICER Height 175 cm (5' 8.9 ) 2022 8:53 AM BRANCH OFFICER Body Mass Index 14.6 2022 8:53 AM BRANCH OFFICER Plan of Treatment Health Maintenance Due Date [...] age to complete this topic Care Teams Manager Sql Relationship Specialty Start Date End Date Rita Lynn MD [address] [place] [address] PCP - General Pediatrics 09/13/19
--- OUTSIDE RECORDS SUMMARY | 2024-07-02 08:05 | XMS_ITS | Encounter Summary ---
Author Organization [facility] Address [address] [place] [address]. [place], [place] [address] [place] [address] Care Team Providers Care Scrap Piler Name Role Phone None, Provider Primary Care [...] Coronavirus/COVID-19? No / Unsure 07/01/2022 8:04 AM GRADUATE ENGINEER documented as of this encounter Plan of Treatment Not on file documented as of this encounter Visit Diagnoses Not on filedocumented in this encounter Care Teams Scrap Piler Relationship Specialty Start Date End Date None, Provider, PCP - General 02/26/21 documented as of this encounter
--- OUTSIDE RECORDS SUMMARY | 2024-07-02 08:05 | XMS_ITS | Encounter Summary ---
Author Organization [facility] Address [address] [place] [address]. [place], [place] [id number] [place] [address] Care Team Providers Care Telegraph Office Telephone Clerk Name Role Phone Unavailable Primary Care Provider Unavailabl e Encounter Details Date Type Department Care Team (Late st Contact Info) Description [address] [facility] [address] , Carey Alaniz MD Social History Tobacco [...]
--- OUTSIDE RECORDS SUMMARY | 2024-07-02 08:05 | XMS_ITS | Encounter Summary ---
Author Organization [facility] Address [address] [place] [address]. [place] [address] [place] [address] Care Team Providers Care Inventory Associate Name Role Phone None, Provider MD Primary Care Provider Unavaila ble Reason for Referral * Imaging (Emergency) - Closed Specialty Diagnoses / Procedures Referred By Jeannine flowers Referred To Contact RADIOLOGY Procedures CT ABD+PEL W IV CON ONLY Charito Moore MD [address] [address] Phone: tel: fax: Referral ID Status Reason Start Date Expiration Date Visits Re quested Visits Authorized [id number] Closed 02/26/2021 03/28/2022 1 1 Reason for Visit * Reason Comments Abdominal Pain Vomiting Encounter Details Date Type Department Care Team (Late st Contact Info) Description 02/26/2021 9:43 AM CDT - 02/26/2021 12:11 PM CDT Emergency [facility] [place] [address] Charito Moore MD [address] [address] Abdominal Pain; Vomiting Discharge Disposition: [...] 02/26/2021 9:3 5 AM CDT Growth Chart: [facility] (Girls, 2- 20 Years) documented in this encounter Discharge Instructions * Discharge Instructions* Charito Moore MD - 02/26/2021 11:44 AM CDT Follow a bland diet, avoiding fried or spicy foods. Finish antibiotics as prescribed. Return to theER for new or worsening symptoms. * Attachments The following attachments cannot be sent through Care Everywhere. * Gastritis Discharge Instructions (Macanese) documented in this encounter Medications at Time [...] Moore MD - 02/26/2021 9:51 AM CDT [place], [place] EMERGENCY DEPARTMENT ENCOUNTER Chief Complaint Chief Complaint Patient presents with ??? Abdominal Pain ??? 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 02/26/21 Yes Charito Moore MD PAST MEDICAL HISTORY: History reviewed. [...] CATCH COLOR (U) YELLOW TRANSPARENCY CLEAR Specific [place] (U) 1.030 1.001 - 1.030 U PH [...] IV CON ONLY Final Result by User, [id number] (02/26 4736) IMAGING STUDIES: CT ABD+PEL W CON DATE: [...] HISTORY: Abdominal pain, nausea, concern for obstruction [id number] with mid abdominal pain for several months. [...] URINE CLEAN CATCH 02/26/2021 10:40 AM CDT [facility] SPECIAL REQUESTS NO SPECIAL REQUEST 02/26/2021 10:40 AM CDT [facility] CULTURE RESULT NO GROWTH 2 DAYS 02/28/2021 9:37 AM CDT [facility] URINE SPECIMEN OBTAINED BY CLEAN CATCH PROCEDURE / Unknown 02/26/2021 10:01 AM CDT 02/26/2021 10:39 AM CDT Charito Moore MD MICROBIOLOGY - GENERAL ORDERA BLES Final Result [facility] [address] [place] [address], [place] [phone] * (ABNORMAL) URINALYSIS (02/26/2021 10:00 AM CDT) SPECIMEN TYPE URINE CLEAN CATCH 02/26/2021 10:00 AM CDT [facility] COLOR (U) YELLOW 02/26/2021 10:35 AM CDT [facility] TRANSPARENCY CLEAR 02/26/2021 10:35 AM CDT [facility] SPECIFIC GRAVITY (U) 1.030 1.001 - 1.030 02/26/2021 10:35 AM T [facility] U PH 6.5 5.0 - 9.0 02/26/2021 10:35 AM T [facility] LEUKOCYTES (U) 500(A) NEGATIVE 02/26/2021 10:35 AM T [facility] NITRITES NEGATIVE NEGATIVE 02/26/2021 10:35 AM T [facility] PROTEIN (U) 70(H) <30 MG/DL 02/26/2021 10:35 AM T [facility] URINE GLUCOSE NORMAL NORMAL MG/DL 02/26/2021 10:35 AM T [facility] KETONES MG/DL (U) 10(A) NEGATIVE MG/DL 02/26/2021 10:35 AM T [facility] UROBILINOGEN 4.0(A) NORMAL MG/DL 02/26/2021 10:35 AM T [facility] BILIRUBIN (U) NEGATIVE NEGATIVE MG/DL 02/26/2021 10:35 AM T [facility] BLOOD (U) NEGATIVE NEGATIVE 02/26/2021 10:35 AM [facility] CULTURE & SENSITIVITY INDICATED? SPECIMEN SETUP FOR CULTURE 02/26/2021 10:35 AM CDT [facility] MUCUS MANY /LPF 02/26/2021 10:35 AM CDT [facility] WBC/HPF 50(H) <6 /HPF 02/26/2021 10:35 AM CDT [facility] RBC/HPF 8(H) <6 /HPF 02/26/2021 10:35 AM CDT [facility] SQUAMOUS EPITHELIALS RARE /HPF 02/26/2021 10:35 AM CDT [facility] URINE SPECIMEN OBTAINED BY CLEAN CATCH PROCEDURE / Unknown 02/26/2021 10:00 AM CDT us Charito Moore MD URINE ORDERABLES Final Result Performing Organization Address City/[facility]/ZIP Co de Phone Number [facility] [address] [place] [address], [place] [phone] * POCT urine (02/26/2021 9:59 AM CDT) Pathologist [facility] URINE HCG TEST negative NEGATIVE Comment:[id number] 2021-09- 0 Internal Control performed as Expected? valid VALID us Charito Moore MD POINT OF CARE TEST ORDERABLES Final Result * LIPASE (02/26/2021 9:52 AM CDT) Pathologist [facility] Emergency Department LIPASE 140 73 - 393 UNITS/L 02/26/2021 10:42 AM CDT [facility] 02/26/2021 9:52 AM CDT us Charito Moore MD LABORATORY Final Result Performing Organization Address City/[facility]/ZIP Co de Phone Number [facility] [address] [place] [address], * (ABNORMAL) COMPREHENSIVE METABOLIC PANEL (02/26/2021 9:52 AM CDT) [facility] GLUCOSE 98 70 - 99 MG/DL 02/26/2021 10:42 AM CDT [facility] BUN 11 7 - 18 MG/DL 02/26/2021 10:42 AM CDT [facility] CREATININE S/P/B 0.89 0.55 - 1.02 MG/DL 02/26/2021 10:42 AM CDT [facility] SODIUM S/P/B 139 136 - 145 MMOL/L 02/26/2021 10:42 AM CDT [facility] POTASSIUM S/P/B 3.6 3.5 - 5.1 MMOL/L 02/26/2021 10:42 AM CDT [facility] CHLORIDE S/P/B 107 100 - 108 MMOL/L 02/26/2021 10:42 AM CDT [facility] CO2 29.3 21 - 32 MMOL/L 02/26/2021 10:42 AM CDT [facility] CALCIUM S/P/B 9.6 8.5 - 10.1 MG/DL 02/26/2021 10:42 AM CDT [facility] BILIRUBIN TOTAL S/P/B 1.8(H) 0.2 - 1.1 MG/DL 02/26/2021 10:42 AM CDT [facility] Comment: THIS ASSAY IS NOT RECOMMENDED FOR PATIENTS UNDERGOING TREATMENT WITH ELTROMBOPAG DUE TO THE POTENTIAL FOR FALSELY ELEVATED RESULTS. TOTAL PROTEIN S/P/B 7.9 6.4 - 8.2 G/DL 02/26/2021 10:42 AM CDT [facility] ALBUMIN S/P/B 4.4 3.4 - 5.0 G/DL 02/26/2021 10:42 AM CDT [facility] AST 16 15 - 37 U/L 02/26/2021 10:42 AM CDT [facility] ALT 13(L) 14 - 55 U/L 02/26/2021 10:42 AM CDT [facility] ALKALINE PHOSPHATASE S/P/B 72 50 - 136 U/L 02/26/2021 10:42 AM CDT [facility] ANION GAP 2.7(L) 5 - 15 MMOL/L 02/26/2021 10:42 AM CDT [facility] BUN CREATININE RATIO 12.4 6 - 26 02/26/2021 10:42 AM CDT [facility] A/G RATIO 1.3 1.0 - 2.0 RATIO 02/26/2021 10:42 AM CDT [facility] EGFR NON-AFR. AMER. NOT CALCULATED ML/MIN/1. 73 M2 02/26/2021 10:42 AM CDT [facility] EGFR AFR. AMER. NOT CALCULATED ML/MIN/1. 73 M2 02/26/2021 10:42 AM CDT [facility] Comment: NOTE: eGFR is not calculated for patients <18 years of age. This is an estimated GFR (CKD EPI) and should not be used for calculating drug doses. 02/26/2021 9:52 AM CDT us Charito Moore MD LABORATORY Final Result [facility] [address] [place] [address], [place] [phone] * (ABNORMAL) CBC W/DIFF AUTOMATED (02/26/2021 9:52 AM CDT) WBC 3.6(L) 4.5 - 13.0 x10'3/uL 02/26/2021 10:20 AM CDT [facility] RBC 4.82 4.20 - 5.40 x10'6/uL 02/26/2021 10:20 AM CDT [facility] HGB 13.3 12.0 - 16.0 G/DL 02/26/2021 10:20 AM CDT [facility] HCT 40.9 38.0 - 48.0 % 02/26/2021 10:20 AM CDT [facility] MCV 84.9 81.0 - 99.0 FL 02/26/2021 10:20 AM CDT [facility] MCH 27.6 27.0 - 31.0 PG 02/26/2021 10:20 AM CDT [facility] MCHC 32.5 32.0 - 36.0 G/DL 02/26/2021 10:20 AM CDT [facility] RDW 13.2 11.5 - 14.5 % 02/26/2021 10:20 AM CDT [facility] PLT 191 130 - 400 x10'3/uL 02/26/2021 10:20 AM CDT [facility] MPV 11.0 9.3 - 12.2 FL 02/26/2021 10:20 AM CDT [facility] DIFFERENTIAL TYPE AUTOMATED DIFFERENTIAL 02/26/2021 10:20 AM CDT [facility] NEUTROPHILS % 48.1 % 02/26/2021 10:20 AM CDT [facility] LYMPHOCYTES % 45.3 % 02/26/2021 10:20 AM CDT [facility] MONOCYTES % 4.4 % 02/26/2021 10:20 AM CDT [facility] EOSINOPHILS 1.4 % 02/26/2021 10:20 AM CDT [facility] BASOPHILS 0.8 % 02/26/2021 10:20 AM CDT [facility] IMMATURE GRANS % 0.0 % 02/27/20 10:20 AM CDT [facility] ABS. NEUTROPHILS TOTAL 1.75(L) 1.80 - 8.00 x10'3/uL 02/26/2021 10:20 AM CDT [facility] ABS. LYMPHOCYTES 1.65 1.20 - 5.20 x10'3/uL 02/26/2021 10:20 AM CDT [facility] ABS. MONOCYTES 0.16(L) 0.24 - 0.86 x10'3/uL 02/26/2021 10:20 AM CDT [facility] ABS. EOSINOPHILS 0.05 0.04 - 0.36 x10'3/uL 02/26/2021 10:20 AM CDT [facility] ABS. BASOPHILS 0.03 0.01 - 0.08 x10'3/uL 02/26/2021 10:20 AM CDT [facility] ABS. IMMATURE GRANULOCYTES 0.00 0.00 - 0.49 x10'3/uL 02/26/2021 10:20 AM CDT [facility] 02/26/2021 9:52 AM CDT us Charito Moore MD LABORATORY Final Result [facility] [address] [place] [address], [place] [phone] documented in this encounter Visit Diagnoses Diagnosis [...] Live) documented in this encounter Care Teams Inventory Associate Relationship Specialty Start Date End Date None, Provider, PCP - General 02/26/21 documented as of this encounter
--- OUTSIDE RECORDS SUMMARY | 2024-07-02 08:05 | XMS_ITS | Encounter Summary ---
Author Organization [facility] Address [address] [place] [address]. [place], [place] [address] [place] [address] Care Team Providers Care Regional Environmental Manager Name Role Phone None, Provider MD Primary Care Provider Unavaila ble Reason for Visit * Reason Comments Abdominal Pain Encounter Details Date Type Department Care Team (Late st Contact Info) Description 06/24/2024 11:14 AM MEDIA ACCOUNT EXECUTIVE - 06/24/2024 4:45 PM MEDIA ACCOUNT EXECUTIVE Emergency [facility] [place] [address] Lashell Murray, [facility] [address] [address] Abdominal Pain Discharge Disposition: Home or Self [...] Comments Blood Pressure 95/56 06/24/2024 1:50 PM MEDIA ACCOUNT EXECUTIVE Pulse 57 06/24/2024 1:50 PM MEDIA ACCOUNT EXECUTIVE Temperature 36.7 ??C (98 ??F) 06/24/2024 11:18 AM MEDIA ACCOUNT EXECUTIVE Respiratory Rate 18 06/24/2024 2:35 PM MEDIA ACCOUNT EXECUTIVE Oxygen Saturation 98% 06/24/2024 1:50 PM MEDIA ACCOUNT EXECUTIVE Inhaled Oxygen Concentration - - Weight 45.2 kg (99 lb 10.4 oz) 06/24/2024 11:18 AM MEDIA ACCOUNT EXECUTIVE Height 172.7 cm (5' 8 ) 06/24/2024 11:18 AM MEDIA ACCOUNT EXECUTIVE Body Mass Index 15.15 06/24/2024 11:18 AM MEDIA ACCOUNT EXECUTIVE documented in this encounter Discharge Instructions * Discharge Instructions* ERICK Bajwa - 06/24/2024 2:15 PM MEDIA ACCOUNT EXECUTIVE - Zofran can be used as needed [...] in vomit or other new emergent concerns. A ACCOUNT EXECUTIVE * Attachments The following attachments cannot be sent through Care Everywhere. * Cannabis hyperemesis syndrome (Macedonian) documented in this encounter Medications at Time [...] her uber to arrive and wants toleave. A ACCOUNT EXECUTIVE * Monserrat Hernandez RN - 06/24/2024 3:34 PM CST Pt was D/C @1435, yet has been laying in ED19 since. Director Of Marketing asked pt if there was anything else she needed at approx 1515. Pt on the phone with her mother who is rapidly firing questions about why this pt is to be admitted. Pt verbalizing that she is not currently in pain, however pt is worried she will go home and still be in pain. Director Of Marketing stressed this is why it is so important to followup with your Primary Provider, however mother did not like that comment. Director Of Marketing left the room to inform the ED Provider of this issue. Lashell SUAREZ came out of the room after discussing POC with pt and mother. POWER PLANT ENGINEER reporting thatthe pt had thrown up all over the floor and that there were 3 empty emesis bags around the pt when she entered the room. Pt currently resting on stretcher in ED19 with warm blankets and eyes closed. Adequate chest rise and fall noted at this time. Both temporary staff accountant and Primary RN notified. A ACCOUNT EXECUTIVE A ACCOUNT EXECUTIVE A ACCOUNT EXECUTIVE * Fermin Elena RN - 06/24/2024 12:30 PM CST Pt asking for water and sticking fingers to back of throat trying to make herself vomit A ACCOUNT EXECUTIVE * ERICK Bajwa - 06/24/2024 11:22 AM [...] vomiting. Chart review, patient admitted to [facility] June 2022 for cannabis hyperemesis syndrome, [...] ordered [GS] ED Course User Index [GS] ERICK Bajwa Clinical Impression Cannabis hyperemesis syndrome concurrent with and due to cannabis abuse ([facility]) (Primary) Disposition: Discharge NOTE: I dictated portions of this note using [employer] speech recognition software. Occasional wrong word or sound-alike substitutions may have occurred due to the inherent limitations of voice recognition software. ERICK BAJWA 06/24/2024 ERICK Bajwa 06/24/24 1727 Cosigned by Jasmyn Abbott MD at 06/25/2024 7:49 PM MEDIA ACCOUNT EXECUTIVE A ACCOUNT EXECUTIVE A ACCOUNT EXECUTIVE * Fermin Elena RN - 06/24/2024 11:15 AM CST Pt states n/v abd pain started last night after smoking weed, has had similar symptoms in the past A ACCOUNT EXECUTIVE documented in this encounter Plan of Treatment Not on file documented as of this encounter Procedures Procedure Name Priority Date/Time Associated Diagnosis Comments HC URINALYSIS AUTO W/O MICRO STAT 06/24/2024 1:06 PM MEDIA ACCOUNT EXECUTIVE COMPREHENSIVE METABOLIC PANEL STAT 06/24/2024 11:18 AM MEDIA ACCOUNT EXECUTIVE CBC W/DIFF AUTOMATED STAT 06/24/2024 11:18 AM MEDIA ACCOUNT EXECUTIVE LIPASE STAT 06/24/2024 11:18 AM MEDIA ACCOUNT EXECUTIVE documented in this encounter Results * (ABNORMAL) URINALYSIS (06/24/2024 1:06 PM MEDIA ACCOUNT EXECUTIVE) SPECIMEN TYPE URINE CLEAN CATCH 06/24/2024 1:06 PM MEDIA ACCOUNT EXECUTIVE [facility] COLOR (U) YELLOW 06/24/2024 2:27 PM MEDIA ACCOUNT EXECUTIVE [facility] TRANSPARENCY CLEAR 06/24/2024 2:27 PM MEDIA ACCOUNT EXECUTIVE [facility] SPECIFIC GRAVITY (U) 1.031(H) 1.001 - 1.030 06/24/2024 2:27 PM MEDIA ACCOUNT EXECUTIVE [facility] U PH 8.0 5.0 - 9.0 06/24/2024 2:27 PM MEDIA ACCOUNT EXECUTIVE [facility] LEUKOCYTES (U) NEGATIVE NEGATIVE 06/24/2024 2:27 PM MEDIA ACCOUNT EXECUTIVE [facility] NITRITES NEGATIVE NEGATIVE 06/24/2024 2:27 PM [facility] PROTEIN RANDOM (U) 70(H) <30 MG/DL 06/24/2024 2:27 PM [facility] GLUCOSE (U) 30(A) NORMAL MG/DL 06/24/2024 2:27 PM MEDIA ACCOUNT EXECUTIVE [facility] KETONES MG/DL (U) 10(A) NEGATIVE MG/DL 06/24/2024 2:27 PM MEDIA ACCOUNT EXECUTIVE [facility] Comment: Successful Call: PURNIMAEdd called 06/24/2024 02:28 PM to EMERGENCY ROOM ([id number]/FERMIN ELENA) by [id number]. Read Back: Yes UROBILINOGEN 2.0(A) NORMAL MG/DL 06/24/2024 2:27 PM MEDIA ACCOUNT EXECUTIVE [facility] BILIRUBIN (U) NEGATIVE NEGATIVE MG/DL 06/24/2024 2:27 PM MEDIA ACCOUNT EXECUTIVE [facility] BLOOD (U) 1+(A) NEGATIVE 06/24/2024 2:27 PM MEDIA ACCOUNT EXECUTIVE [facility] MUCUS FEW /LPF 06/24/2024 2:27 PM MEDIA ACCOUNT EXECUTIVE [facility] WBC/HPF 4 <6 /HPF 06/24/2024 2:27 PM MEDIA ACCOUNT EXECUTIVE [facility] RBC/HPF 80(H) <6 /HPF 06/24/2024 2:27 PM MEDIA ACCOUNT EXECUTIVE [facility] BACTERIA (U) RARE(A) NONE /HPF 06/24/2024 2:27 PM MEDIA ACCOUNT EXECUTIVE [facility] URINE SPECIMEN OBTAINED BY CLEAN CATCH PROCEDURE / Unknown 06/24/2024 1:06 PM MEDIA ACCOUNT EXECUTIVE us Lashell Murray POWER PLANT ENGINEER URINE ORDERABLES Final Resu lt [facility] [address] [place] [address], [place] [phone] * (ABNORMAL) COMPREHENSIVE METABOLIC PANEL (06/24/2024 11:18 AM MEDIA ACCOUNT EXECUTIVE) GLUCOSE 113(H) 70 - 99 MG/DL 06/24/2024 12:05 PM [facility] BUN 10 7 - 18 MG/DL 06/24/2024 12:05 PM [facility] CREATININE S/P/B 0.96 0.55 - 1.02 MG/DL 06/24/2024 12:05 PM [facility] SODIUM S/P/B 141 136 - 145 MMOL/L 06/24/2024 12:05 PM [facility] POTASSIUM S/P/B 4.3 3.5 - 5.1 MMOL/L 06/24/2024 12:05 PM [facility] Comment:SLIGHT HEMOLYSIS, RE SULT MAY BE AFFECTED. CHLORIDE S/P/B 113 97 - 115 MMOL/L 06/24/2024 12:05 PM [facility] CO2 22.8 21 - 32 MMOL/L 06/24/2024 12:05 PM [facility] CALCIUM S/P/B 8.8 8.5 - 10.1 MG/DL 06/24/2024 12:05 PM [facility] BILIRUBIN TOTAL S/P/B 1.0 0.2 - 1.1 MG/DL 06/24/2024 12:05 PM [facility] Comment: THIS ASSAY IS NOT RECOMMENDED FOR PATIENTS UNDERGOING TREATMENT WITH ELTROMBOPAG DUE TO THE POTENTIAL FOR FALSELY ELEVATED RESULTS. TOTAL PROTEIN S/P/B 6.4 6.4 - 8.2 G/DL 06/24/2024 12:05 PM [facility] ALBUMIN S/P/B 3.4 3.4 - 5.0 G/DL 06/24/2024 12:05 PM [facility] AST 27 15 - 37 U/L 06/24/2024 12:05 PM [facility] Comment:SLIGHT HEMOLYSIS, RE SULT MAY BE AFFECTED. ALT 12(L) 14 - 55 U/L 06/24/2024 12:05 PM [facility] ALKALINE PHOSPHATASE S/P/B 43(L) 50 - 136 U/L 06/24/2024 12:05 PM [facility] ANION GAP 5.2 2 - 10 MMOL/L 06/24/2024 12:05 PM [facility] BUN CREATININE RATIO 10.4 6 - 26 06/24/2024 12:05 PM [facility] A/G RATIO 1.1 1.0 - 2.0 RATIO 06/24/2024 12:05 PM [facility] GFR ESTIMATE 87(L) >90 ML/MIN/1.7 3 M2 06/24/2024 12:05 PM [facility] Comment: NOTE: eGFR is not calculated for patients <18 years of age or gender unknown. This is an estimated GFR calculation using the new CKD EPI creatinine equation without race and so does not require a correction factor for race. This estimated GFR should not be used for calculating drug doses. 06/24/2024 11:1 8 AM MEDIA ACCOUNT EXECUTIVE Lashell Murray [facility] Final Resul t Performing Organization Address City/[facility]/ZIP Co de Phone Number [facility] [address] [place] [address], [place] [phone] * LIPASE (06/24/2024 11:18 AM MEDIA ACCOUNT EXECUTIVE) LIPASE 27 13 - 75 UNITS/L 06/24/2024 12:05 PM [facility] 06/24/2024 11:1 8 AM MEDIA ACCOUNT EXECUTIVE Lashell Murray [facility] Final Resul t [facility] [address] [place] [address], [place] [phone] * CBC W/DIFF AUTOMATED (06/24/2024 11:18 AM MEDIA ACCOUNT EXECUTIVE) [facility] Signature WBC 5.50 4.5 - 13.0 x10'3/uL 06/24/2024 11:40 AM [facility] RBC 4.52 4.20 - 5.40 x10'6/uL 06/24/2024 11:40 AM [facility] HGB 12.5 12.0 - 16.0 G/DL 06/24/2024 11:40 AM [facility] HCT 38.6 38.0 - 48.0 % 06/24/2024 11:40 AM [facility] MCV 85.4 81.0 - 99.0 FL 06/24/2024 11:40 AM [facility] MCH 27.7 27.0 - 31.0 PG 06/24/2024 11:40 AM [facility] MCHC 32.4 32.0 - 36.0 G/DL 06/24/2024 11:40 AM [facility] RDW 13.8 11.5 - 14.5 % 06/24/2024 11:40 AM [facility] PLT 152 130 - 400 x10'3/uL 06/24/2024 11:40 AM [facility] MPV 11.1 9.3 - 12.2 FL 06/24/2024 11:40 AM [facility] DIFFERENTIAL TYPE AUTOMATED DIFFERENTIAL 06/24/2024 11:40 AM [facility] NEUTROPHILS % 68.9 % 06/24/2024 11:40 AM [facility] LYMPHOCYTES % 22.7 % 06/24/2024 11:40 AM MEDIA ACCOUNT EXECUTIVE [facility] MONOCYTES % 6.2 % 06/24/2024 11:40 AM MEDIA ACCOUNT EXECUTIVE [facility] EOSINOPHILS 1.6 % 06/24/2024 11:40 AM [facility] BASOPHILS 0.4 % 06/24/2024 11:40 AM [facility] IMMATURE GRANS % 0.2 % 06/24/19 11:40 AM MEDIA ACCOUNT EXECUTIVE [facility] ABS. NEUTROPHILS 3.79 1.80 - 8.00 x10'3/uL 06/24/2024 11:40 AM MEDIA ACCOUNT EXECUTIVE [facility] ABS. LYMPHOCYTES 1.25 1.20 - 5.20 x10'3/uL 06/24/2024 11:40 AM [facility] ABS. MONOCYTES 0.34 0.24 - 0.86 x10'3/uL 06/24/2024 11:40 AM MEDIA ACCOUNT EXECUTIVE [facility] ABS. EOSINOPHILS 0.09 0.04 - 0.36 x10'3/uL 06/24/2024 11:40 AM MEDIA ACCOUNT EXECUTIVE [facility] ABS. BASOPHILS 0.02 0.01 - 0.08 x10'3/uL 06/24/2024 11:40 AM [facility] ABS. IMMATURE GRANULOCYTES 0.01 0.00 - 0.49 x10'3/uL 06/24/2024 11:40 AM [facility] 06/24/2024 11:1 8 AM MEDIA ACCOUNT EXECUTIVE Lashell ALVAREZP LABORATORY Final Resul t [facility] [address] [place] [address], documented in this encounter Visit Diagnoses Diagnosis Cannabis hyperemesis syndrome concurrent with and due to cannabis abuse ([facility])- Primary documented in this encounter Administered Medications Inactive Administered Medications - up to 3 most recent administrations Medication Order MAR Action Action Date Dose Rate Site capsaicin (ABSORBINE ARTHRITIS) 0.025 % cream Topical, Once, 1 dose, On 06/24/24 at 1130, 1 inch paste into abdomen Given 06/24/2024 12:13 PM MEDIA ACCOUNT EXECUTIVE diphenhydrAMINE (BENADRYL) injection 25 mg 25 mg, Intravenous, Once, 1 dose, On 06/24/24 at 1130, For IV administration, give no faster than 25 mg/min. Given 06/24/2024 11:26 AM MEDIA ACCOUNT EXECUTIVE 25 mg famotidine (PF) (PEPCID) injection 20 mg 20 mg, Intravenous, Once, 1 dose, On 06/24/24 at 1300, IV Push over 2 minutes Given 06/24/2024 1:06 PM MEDIA ACCOUNT EXECUTIVE 20 mg haloperidol lactate (HALDOL) injection 5 mg 5 mg, Intravenous, Once, 1 dose, On 06/24/24 at 1300, IF giving IV, do not give faster than 5 mg/min IV; observe for hypotension. Given 06/24/2024 1:06 PM MEDIA ACCOUNT EXECUTIVE 5 mg ondansetron (ZOFRAN-ODT) disintegrating tablet 4 mg 4 mg, Oral, Once, 1 dose, On 06/24/24 at 1245 Given 06/24/2024 1:06 PM MEDIA ACCOUNT EXECUTIVE 4 mg prochlorperazine (COMPAZINE) injection 10 mg [...] Outer gluteal muscle Given 06/24/2024 11:29 AM MEDIA ACCOUNT EXECUTIVE 10 mg documented in this encounter Active and Recently Administered Medications Times are shown in MEDIA ACCOUNT EXECUTIVE. Scheduled Medication Order 06/22/2024 06/23/2024 06/24/2024 capsaicin [...] declined) documented in this encounter Care Teams Regional Environmental Manager Relationship Specialty Start Date End Date None, Provider, PCP - General 02/26/21 documented as of this encounter
--- OUTSIDE RECORDS SUMMARY | 2024-07-02 08:05 | XMS_ITS | Encounter Summary ---
Author Organization [facility] Address [address] [place] [address]. [place] [address] [place] [address] Care Team Providers Care Impact Hammer Operator Name Role Phone None, Provider MD Primary Care Provider Unavaila ble Reason for Visit * Reason Comments Vomiting Abdominal Pain Encounter Details Date Type Department Care Team (Late st Contact Info) Description 07/01/2022 9:15 AM PASTE MIXER - 07/01/2022 2:15 PM PASTE MIXER Emergency [facility] Emergency Room [place], [place] [id number] Ashley Hdz, SORTER/ASSAY TECH [address], [place] [address] Vomiting; Abdominal Pain Discharge Disposition: Home or [...] Coronavirus/COVID-19? No / Unsure 07/01/2022 8:04 AM PASTE MIXER documented as of this encounter Last Filed Vital Signs Vital Sign Reading Time Taken Comments Blood Pressure 98/62 07/01/2022 1:56 PM PASTE MIXER Pulse 83 07/01/2022 1:56 PM PASTE MIXER Temperature 36.8 ??C (98.3 ??F) 07/01/2022 1:56 PM CS T Respiratory Rate 16 07/01/2022 1:56 PM PASTE MIXER Oxygen Saturation 98% 07/01/2022 1:56 PM PASTE MIXER Inhaled Oxygen Concentration - - Weight 44.5 kg (98 lb) 07/01/2022 8:17 AM PASTE MIXER Height 172.7 cm (5' 8 ) 07/01/2022 8:17 AM PASTE MIXER Body Mass Index 14.9 07/01/2022 8:17 AM PASTE MIXER Body Mass Index Percentile 0.01% 07/01/2022 8:1 7 AM PASTE MIXER Growth Chart: [facility] (Girls, 2- 20 Years) documented in this encounter Discharge Instructions * Discharge Instructions* Ashley Willie Hdz, SORTER/ASSAY TECH - 07/01/2022 2:06 PM PASTE MIXER As we discussed it is important that you follow-up with your primary and also have the GI consult outpatient as you have left [facility] AGAINST MEDICAL ADVICE. Your labs today are normal, Damir reviewed all of your charts from [place] and the results. I do agree you [...] care by your primary care physician or mainframe consultant. Follow up in 2-3 days with your primary care provider, or if symptoms worsen go to [facility] or the ER. Our practice is committed to providing you the very best in healthcare. It is our pleasure to have the opportunity to take care of you. E MIXER * Attachments The following attachments cannot be sent through Care Everywhere. * Minimize Weight Loss (Ivorian) * Severe Abdominal Pain Discharge Instructions, Child (Ivorian) * Nausea and Vomiting Discharge Instructions, Adult (Ivorian) documented in this encounter Medications at Time [...] from raymond received and given to provider E MIXER * Enoch Inman RN - 07/01/2022 11:53 AM CST Called [facility] to check on status of records. They request refax of consent to another fax number E MIXER * Ashley Hdz APRN - 07/01/2022 10:25 AM CST [facility] EMERGENCY DEPARTMENT ENCOUNTER PROVIDER NOTE Patient name: Lorraine Pacheco DOS: 07/01/2022 Primary Care Provider: Provider MD Alexei History obtained from: chart review, the patient and EMS. Chief Complaint Chief Complaint Patient presents with ??? Vomiting ??? Abdominal Pain History of Present Illness Lorraine Pacheco is a 17-year-old female recently seen in the emergency department at [facility] where she left AMA as she was not happy with the care she received with diagnosis of low magnesium/potassium who presents to the Emergency Department today by ambulance for evaluation of abdominal pain, nausea, vomiting over the last 3 weeks. Also seen at [facility] on 06-26-22 for similar symptoms. Patient states [...] Nausea. 07/01/22 07/08/22 Yes Ashley Willie Hayr SORTER/ASSAY TECH famotidine 20 MG tablet Take 1 tablet [...] CATCH COLOR (U) COLORLESS TRANSPARENCY CLEAR Specific Branch (U) 1.011 1.001 - 1.030 U PH [...] RT MIN 3V Final Result by User, [id number] (07/01 915) EXAMINATION: XR WRIST RT MIN [...] was inpatient by GI, they had left [facility] AMA. Patient's labs today are [...] they could try to go back to [place] where she was initially seen and was [...] ECG and notes. Details: reviewed visit from [facility] seen on 06-26-22. Per ED provider note patient had labs done which showed no acute abnormalities. she was positive for cannabis in her urine andthe provider had discussed cannabinoid hyperemesis syndrome. received fax from [facility], reviewed entire chart of 45 pages. Patient [...] Starting Kaleigh 07/01/2022, Eprescribe Class: Eprescribe Pharmacy: [id number], [place] [address] AT [address] (Ph #: [phone]) promethazine (PROMETHEGAN) [address] 1 suppository (25 mg total) rectally every 6 (six) hours as needed for Nausea., Starting Kaleigh 07/01/2022, Until Kaleigh 07/08/2022 at 2359, Eprescribe Class: Eprescribe Pharmacy: [id number] [place], [place] - [address] AT [address] (Ph #: [phone]) Follow-up: No follow-up provider specified. Ashley Hdz, SORTER/ASSAY TECH 07/01/2022 Please note that dictated portions of this note were made using Parso speech recognition software.Occasional wrong word or sound-alike substitutions may have occurred due to the inherent limitations of voice recognition software. Please read the chart carefully and recognize, using context, where the substitutions may have occurred. Ashley Hdz APRN 07/01/222202 Cosigned by Ivy Olmos MD at 07/04/2022 6:27 PM PASTE MIXER E MIXER E MIXER * Amparo Batres RN - 07/01/2022 8:40 [...] RN ortech for assistance to the restroom. E MIXER E MIXER E MIXER * LALITO Lazaro - 07/01/2022 8:18 AM CST [place] EMERGENCY DEPARTMENT ENCOUNTER Medical Screening Examination 07/01/22 8:18 AM Chief Complaint : Vomiting and Abdominal Pain HPI : Lorraine Pacheco is a 17-year-old female who presents for evaluation of worsening abdominal pain with nausea vomiting over the past 3 weeks. Patient did leave AMA from [facility] today as shewas concerned with care [...] Ivy Olmos MD at 07/01/2022 8:57 AM PASTE MIXER E MIXER E MIXER * Amparo Batres RN - 07/01/2022 8:13 AM CST Pt to triage c/o vomiting and chills x3 weeks. Denies diarrhea, blood in stool, or fevers. EMS reports decreased magnesium and K+ levels and left [facility] this morning. 10/10 abdominal pain. AOx4. VS stable. E MIXER documented in this encounter Plan of Treatment Not on file documented as of this encounter Procedures Procedure Name Priority Date/Time Associated Diagnosis Comments POCT URINE (BACK OFFICE) STAT 07/01/2022 11:06 AM PASTE MIXER HC URINALYSIS AUTO W/O MICRO STAT 07/01/2022 11:00 AM PASTE MIXER COMPREHENSIVE METABOLIC PANEL STAT 07/01/2022 9:30 AM PASTE MIXER CBC W/DIFF AUTOMATED STAT 07/01/2022 9:30 AM PASTE MIXER PHOSPHORUS, INORGANIC PHOSPHATE STAT 07/01/2022 9:30 AM PASTE MIXER MAGNESIUM STAT 07/01/2022 9:30 AM PASTE MIXER LIPASE STAT 07/01/2022 9:30 AM PASTE MIXER XR WRIST RT MIN 3V STAT 07/01/2022 9: 02 AM PASTE MIXER documented in this encounter Results * POCT urine (07/01/2022 11:06 AM PASTE MIXER) URINE HCG TEST NEGATIVE NEGATIVE Internal Control: VALID VALID Wil[facility] POINT OF CARE TEST ORDERABL ES Final Result * (ABNORMAL) URINALYSIS (07/01/2022 11:00 AM PASTE MIXER) SPECIMEN TYPE URINE CLEAN CATCH 07/01/2022 11:04 AM [facility] COLOR (U) COLORLESS 07/01/2022 11:18 AM [facility] TRANSPARENCY CLEAR 07/01/2022 11:18 AM [facility] SPECIFIC GRAVITY (U) 1.011 1.001 - 1.030 07/01/2022 11:18 AM [facility] U PH 6.5 5.0 - 9.0 07/01/2022 11:18 AM [facility] LEUKOCYTES (U) NEGATIVE NEGATIVE 07/01/2022 11:18 AM [facility] NITRITES NEGATIVE NEGATIVE 07/01/2022 11:18 AM [facility] PROTEIN (U) NEGATIVE <30 MG/DL 07/01/2022 11:18 AM [facility] URINE GLUCOSE NORMAL NORMAL MG/DL 07/01/2022 11:18 AM [facility] KETONES MG/DL (U) 40(A) NEGATIVE MG/DL 07/01/2022 11:18 AM [facility] UROBILINOGEN NORMAL NORMAL MG/DL 07/01/2022 11:18 AM [facility] BILIRUBIN (U) NEGATIVE NEGATIVE MG/DL 07/01/2022 11:18 AM [facility] BLOOD (U) NEGATIVE NEGATIVE 07/01/2022 11:18 AM [facility] CULTURE & SENSITIVITY INDICATED? CULTURE IS NOT INDICATED 07/01/2022 11:[address] [facility] URINE SPECIMEN OBTAINED BY CLEAN CATCH PROCEDURE / Unknown 07/01/2022 11:00 AM PASTE MIXER us Wil[facility] URINE ORDERABLES Final Resu lt Performing Organization Address City/[facility]/ZIP Co de Phone Number [facility] [address] [place] [address], [place] [phone] * PHOSPHORUS, INORGANIC PHOSPHATE (07/01/2022 9:30 AM PASTE MIXER) PHOSPHORUS 2.8 2.5 - 4.9 MG/DL 07/01/2022 10:[address] [facility] 07/01/2022 9:30 AM PASTE MIXER us [facility] Final Resul t Performing Organization Address [facility] Co de Phone Number [facility] [address] [place] [address], [place] [phone] * MAGNESIUM (07/01/2022 9:30 AM PASTE MIXER) MAGNESIUM 2.1 1.8 - 2.4 MG/DL 07/01/2022 10:[address] [facility] 07/01/2022 9:30 AM PASTE MIXER us [facility] Final Resul t Performing Organization Address City/[facility]/ZIP Co de Phone Number [facility] [address] [place] [address], [place] [phone] * LIPASE (07/01/2022 9:30 AM PASTE MIXER) LIPASE 106 73 - 393 UNITS/L 07/01/2022 10:22 AM [facility] 07/01/2022 9:30 AM PASTE MIXER [facility] Final Resul t [facility] [address] [place] [address], * (ABNORMAL) COMPREHENSIVE METABOLIC PANEL (07/01/2022 9:30 AM PASTE MIXER) Pathologist [facility] GLUCOSE 75 70 - 99 MG/DL 07/01/2022 10:22 AM [facility] BUN 10 7 - 18 MG/DL 07/01/2022 10:22 AM [facility] CREATININE S/P/B 0.83 0.55 - 1.02 MG/DL 07/01/2022 10:22 AM [facility] SODIUM S/P/B 136 136 - 145 MMOL/L 07/01/2022 10:22 AM [facility] POTASSIUM S/P/B 4.2 3.5 - 5.1 MMOL/L 07/01/2022 10:22 AM [facility] CHLORIDE S/P/B 101 100 - 108 MMOL/L 07/01/2022 10:22 AM [facility] CO2 25.0 21 - 32 MMOL/L 07/01/2022 10:22 AM [facility] CALCIUM S/P/B 8.9 8.5 - 10.1 MG/DL 07/01/2022 10:22 AM [facility] BILIRUBIN TOTAL S/P/B 2.0(H) 0.2 - 1.1 MG/DL 07/01/2022 10:22 AM [facility] Comment: THIS ASSAY IS NOT RECOMMENDED FOR PATIENTS UNDERGOING TREATMENT WITH ELTROMBOPAG DUE TO THE POTENTIAL FOR FALSELY ELEVATED RESULTS. TOTAL PROTEIN S/P/B 7.4 6.4 - 8.2 G/DL 07/01/2022 10:22 AM [facility] ALBUMIN S/P/B 3.9 3.4 - 5.0 G/DL 07/01/2022 10:22 AM [facility] AST 20 15 - 37 U/L 07/01/2022 10:22 AM [facility] ALT 14 14 - 55 U/L 07/01/2022 10:22 AM [facility] ALKALINE PHOSPHATASE S/P/B 54 50 - 136 U/L 07/01/2022 10:22 AM [facility] ANION GAP 10.0 5 - 15 MMOL/L 07/01/2022 10:22 AM [facility] BUN CREATININE RATIO 12.0 6 - 26 07/01/2022 10:22 AM [facility] A/G RATIO 1.1 1.0 - 2.0 RATIO 07/01/2022 10:22 AM [facility] GFR ESTIMATE >90 >90 ML/MIN/1.7 3 M2 07/01/2022 10:22 AM [facility] Comment: NOTE: eGFR is not calculated for patients <18 years of age. This is an estimated GFR calculation using the new CKD EPI creatinine equation without race and so does not require a correction factor for race. This estimated GFR should not be used for calculating drug doses. 07/01/2022 9:30 AM [facility] Final Resul t [facility] [address] [place] [address], * (ABNORMAL) CBC W/DIFF AUTOMATED (07/01/2022 9:30 AM PASTE MIXER) [facility] WBC 5.4 4.5 - 13.0 x10'3/uL 07/01/2022 9:50 AM [facility] RBC 4.71 4.20 - 5.40 x10'6/uL 07/01/2022 9:50 AM [facility] HGB 13.1 12.0 - 16.0 G/DL 07/01/2022 9:50 AM [facility] HCT 40.1 38.0 - 48.0 % 07/01/2022 9:50 AM [facility] MCV 85.1 81.0 - 99.0 FL 07/01/2022 9:50 AM [facility] MCH 27.8 27.0 - 31.0 PG 07/01/2022 9:50 AM [facility] MCHC 32.7 32.0 - 36.0 G/DL 07/01/2022 9:50 AM [facility] RDW 13.0 11.5 - 14.5 % 07/01/2022 9:50 AM [facility] PLT 231 130 - 400 x10'3/uL 07/01/2022 9:50 AM [facility] MPV 10.8 9.3 - 12.2 FL 07/01/2022 9:50 AM [facility] DIFFERENTIAL TYPE AUTOMATED DIFFERENTIAL 07/01/2022 9:50 AM [facility] NEUTROPHILS % 63.9 % 07/01/2022 9:50 AM [facility] LYMPHOCYTES % 28.3 % 07/01/2022 9:50 AM [facility] MONOCYTES % 6.1 % 07/01/2022 9:50 AM [facility] EOSINOPHILS 0.6 % 07/01/2022 9:50 AM [facility] BASOPHILS 0.7 % 07/01/2022 9:50 AM [facility] IMMATURE GRANS % 0.4 % 07/01/19 9:50 AM [facility] ABS. NEUTROPHILS TOTAL 3.45 1.80 - 8.00 x10'3/uL 07/01/2022 9:50 AM [facility] ABS. LYMPHOCYTES 1.53 1.20 - 5.20 x10'3/uL 07/01/2022 9:50 AM [facility] ABS. MONOCYTES 0.33 0.24 - 0.86 x10'3/uL 07/01/2022 9:50 AM [facility] ABS. EOSINOPHILS 0.03(L) 0.04 - 0.36 x10'3/uL 07/01/2022 9:50 AM [facility] ABS. BASOPHILS 0.04 0.01 - 0.08 x10'3/uL 07/01/2022 9:50 AM [facility] ABS. IMMATURE GRANULOCYTES 0.02 0.00 - 0.49 x10'3/uL 07/01/2022 9:50 AM [facility] 07/01/2022 9:30 AM PASTE MIXER us [facility] Final Resul t [facility] [address] [place] [address], * XR WRIST RT MIN 3V (07/01/2022 9:02 AM PASTE MIXER) Anatomical Region Laterality Modality Wrist Radiographic Clair ging 07/01/2022 9:13 AM PASTE MIXER Impressions 07/01/2022 9:15 AM PASTE MIXER IMPRESSION: Anatomic alignment without fracture or localizing abnormality. If there is clinical concern for radiographically occult fracture, then conservative management and follow up radiographs are recommended in 10-14 days Referred By: ?? Interpreted By: Abilio England MD, 07/01/2022 9:13 AM Narrative 07/01/2022 9:15 AM PASTE MIXER EXAMINATION: XR WRIST RT MIN 3V INDICATIONS: [...] than 25 mg/min. Given 07/01/2022 12:54 PM PASTE MIXER 25 mg famotidine (PF) (PEPCID) injection 20 mg 20 mg, Intravenous, Once, 1 dose, On [place] 07/01/22 at 0830, IV Push over 2 minutes Given 07/01/2022 9:29 AM PASTE MIXER 20 mg lactated ringers bolus infusion 1,000 mL 1,000 mL, Intravenous, Administer over 15 Minutes, Once, 1 dose, On [place] 07/01/22 at 0830 New Bag 07/01/2022 9:28 AM PASTE MIXER 1,000 mLs metoclopramide (REGLAN) injection 5 mg 5 mg, Intravenous, Once, 1 dose, On [place] 07/01/22 at 1130, Administer IV over 1-2 minutes Given 07/01/2022 12:55 PM PASTE MIXER 5 mg ondansetron (ZOFRAN) injection 4 mg 4 mg, Intravenous, Once, 1 dose, On [place] 07/01/22 at 0830, IV push over 2-5 minutes. Given 07/01/2022 9:27 AM PASTE MIXER 4 mg sodium chloride 0.9% bolus infusion 1,000 mL 1,000 mL, Intravenous, Administer over 60 Minutes, Once, 1 dose, On [place] 07/01/22 at 1130 New Bag 07/01/2022 12:55 PM PASTE MIXER 1,000 mLs documented in this encounter Active and Recently Administered Medications Times are shown in PASTE MIXER. Scheduled Medication Order 06/29/2022 06/30/2022 07/01/2022 diphenhydrAMINE [...] RN) documented in this encounter Care Teams Impact Hammer Operator Relationship Specialty Start Date End Date None, Provider, PCP - General 02/26/21 documented as of this encounter
--- OUTSIDE RECORDS SUMMARY | 2024-07-02 08:05 | XMS_ITS | Encounter Summary ---
Author Organization [facility] Address [address] [place] [address]. [place], [place] [address] [place] [address] Care Team Providers Care Summer Sessions Director Name Role Phone None, Provider Primary [...] on filedocumented in this encounter Care Teams Summer Sessions Director Relationship Specialty Start Date End Date None, ProviderMD PCP - General 02/26/21 documented as of this encounter
--- OUTSIDE RECORDS SUMMARY | 2024-07-02 08:05 | XMS_ITS | Encounter Summary ---
Author Organization [facility] Address [address] [place] [address]. [place], [place] [address] [place] [address] Care Team Providers Care Mechanic Senior Name Role Phone None, Provider Primary Care [...] on filedocumented in this encounter Care Teams Mechanic Senior Relationship Specialty Start Date End Date None, Provider, PCP - General 02/26/21 documented as of this encounter
--- OUTSIDE RECORDS SUMMARY | 2024-07-02 08:06 | XMS_ITS | Clinical Summary ---
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
--- OUTSIDE RECORDS SUMMARY | 2024-07-02 08:06 | XMS_ITS | Encounter Summary ---
Author Organization [facility] Address [address] [place] [address] Care Team Providers Care Media Center Director School Name Role Phone Unavailable Primary Care Provider Unavailabl e Encounter Details Date Type Department Care Team (Late st Contact Info) Description 04/29/2020 Lab Requisition [facility] Department of Public Health Community Testing [facility] [address] [place] [address] [place] [address] [address] [place] [address] Social History Tobacco Use Types Packs/Day Years Used Date Smoking Tobacco: Never Assessed Comments Unknown Sex and Gender Information Value Date Recorded Sex Assigned at Not on file Legal Sex Female 1:11 PM TRANSFORMER BUILDER Gender Identity Not on file Sexual Orientation Not on file documented as of this encounter Plan of Treatment Not on file documented as of this encounter Procedures Procedure Name Priority Date/Time Associated Diagnosis Comments SARS-COV-2 PCR [facility] ONLY Routine 04/29/2020 2:07 PM TRANSFORMER BUILDER documented in this encounter Visit Diagnoses Not on filedocumented in this encounter
--- OUTSIDE RECORDS SUMMARY | 2024-07-02 08:06 | XMS_ITS | Encounter Summary ---
Author Organization [facility] Address [address] [place] [address] Care Team Providers Care Transit Clerk Name Role Phone Unavailable Primary Care Provider Unavailabl e Encounter Details Date Type Department Care Team (Late st Contact Info) Description 04/29/2020 2:00 PM COASTAL AND ESTUARY SPECIALIST Rapid Evaluation [place] [facility] Community Testing [facility] [address] [place] [address] Social History Tobacco Use Types Packs/Day Years Used Date Smoking Tobacco: Never Assessed Comments Unknown Sex and Gender Information Value Date Recorded Sex Assigned at Not on file Legal Sex Female 1:11 PM COASTAL AND ESTUARY SPECIALIST Gender Identity Not on file Sexual Orientation Not on file documented as of this encounter Plan of Treatment Not on file documented as of this encounter Visit Diagnoses Not on filedocumented in this encounter
--- OUTSIDE RECORDS SUMMARY | 2024-07-02 08:07 | XMS_ITS | Clinical Summary ---
Author Organization [facility] Address [address] [place] [address] Care Team Providers Care Occ Therapy Asst Name Role Phone Rita Lynn MD Primary Care Provider [phone] No, Physician Unavailable Allergies Active Allergy Reactions [...] 07/14/2022 Assessment & Plan (07/16/2022 1:22 PM ORNAMENTAL PLASTERER HELPER): Lorraine Pacheco is a 17 y/o previously healthy F with one month hx of abdominal pain and emesis with recent admission to [facility] 07/03-07/13 who presents with recurrence of sx. [...] Psychology Assessment & Plan (07/15/2022 4:44 PM ORNAMENTAL PLASTERER HELPER): Lorraine Pacheco is a 17 y/o previously healthy F with one month hx of abdominal pain and emesis with recent admission to [facility] 07/03-07/13 who presents with recurrence of sx. [...] Psychology Assessment & Plan (07/14/2022 8:43 PM ORNAMENTAL PLASTERER HELPER): Lorraine Pacheco is a 17 y/o previously healthy F with one month hx of abdominal pain and emesis with recent admission to [facility] 07/03-07/13 who presents with recurrence of sx. [...] c/s Assessment & Plan (07/14/2022 8:41 PM ORNAMENTAL PLASTERER HELPER): Lorraine Pacheco is a 17 y/o previously healthy F with one month hx of abdominal pain and emesis with recent admission to [facility] 07/03-07/13 who presents with recurrence of sx. [...] 07/04/2022 Assessment & Plan (07/05/2022 10:25 AM ORNAMENTAL PLASTERER HELPER): 25 vit D on admission - started 50,000 units ergocalciferol qweek, plan x8w and repeat level Assessment & Plan (07/04/2022 11:49 AM ORNAMENTAL PLASTERER HELPER): 25 vit D on admission - started 50,000 units ergocalciferol qweek, plan x8w and repeat level High serum vitamin B12 07/04/2022 Assessment & Plan (07/07/2022 4:09 PM ORNAMENTAL PLASTERER HELPER): Hold supplementation Assessment & Plan (07/05/2022 10:25 AM ORNAMENTAL PLASTERER HELPER): Hold supplementation Assessment & Plan (07/04/2022 11:53 AM ORNAMENTAL PLASTERER HELPER): Hold supplementation Nausea & vomiting 07/03/2022 Assessment & Plan (07/13/2022 1:56 PM ORNAMENTAL PLASTERER HELPER): Patient presenting with subacute N/V with limited [...] plan. Assessment & Plan (07/05/2022 10:25 AM ORNAMENTAL PLASTERER HELPER): Patient presenting with subacute N/V with limited [...] GI Assessment & Plan (07/04/2022 11:51 AM ORNAMENTAL PLASTERER HELPER): Patient presenting with subacute N/V with limited [...] 07/03/2022 Assessment & Plan (07/13/2022 1:57 PM ORNAMENTAL PLASTERER HELPER): Patient reports intermittent blurry vision over both eyes over the past several days (not present during encounter). No complaints currently. 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 - May consider ophtho referral outpatient Assessment & Plan (07/03/2022 10:07 PM ORNAMENTAL PLASTERER HELPER): - Patient reports intermittent blurry vision over both eyes over the past several days (not present during encounter) - Unclear etiology - possible orthostatic; given history concern for 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; limited concern for optic neuritis given bilateral involvement - CTM, consider head imaging and ophthalmology consult if recurrent/ongoing during admission Severe malnutrition (CMS/HCC) 07/03/2022 Assessment & Plan (07/13/2022 1:58 PM ORNAMENTAL PLASTERER HELPER): Patient with chronically low BMI per chart review with current BMI 14 and reported 10 lb weight loss recently related to vomiting and poor po intake - TF were started, but patient tolerating reg diet with no emesis, no concerns for malabsorption so TF not indicated at this time. Will plan to remove NG tube today. Assessment & Plan (07/05/2022 10:25 AM ORNAMENTAL PLASTERER HELPER): Patient with chronically low BMI per chart review with current BMI 14 and reported 10 lb weight loss recently related to vomiting and poor po intake - RD consult - ADAT, Ensure TIDAC - Calorie Count Assessment & Plan (07/04/2022 11:49 AM ORNAMENTAL PLASTERER HELPER): Patient with chronically low BMI per chart review with current BMI 14 and reported 10 lb weight loss recently related to vomiting and poor po intake - RD consult - ADAT, Ensure TIDAC - Calorie Count Resolved Problems Problem Noted Date Diagnosed Date Resolved Date Acute dystonic reaction due to drugs 07/05/2022 07/08/2022 Assessment & Plan (07/07/2022 4:09 PM ORNAMENTAL PLASTERER HELPER): Likely due to heavy use of compazine [...] resolved Assessment & Plan (07/05/2022 10:24 AM ORNAMENTAL PLASTERER HELPER): Likely due to heavy use of compazine [...] 07/14/2022 Assessment & Plan (07/10/2022 9:52 AM ORNAMENTAL PLASTERER HELPER): Likely musculoskeletal in since it only happens after vomiting or gagging. Assessment & Plan (07/05/2022 10:22 AM ORNAMENTAL PLASTERER HELPER): - Constant of L upper chest/shoulder region - worse with palpation and arm movement - hs-trop/EKG unremarkable; suspect MSK in etiology - Trial lidocaine patch, tylenol - PT/OT Assessment & Plan (07/03/2022 9:53 PM ORNAMENTAL PLASTERER HELPER): - Constant of L upper chest/shoulder region - worse with palpation and arm movement - hs-trop/EKG unremarkable; suspect MSK in etiology - Trial lidocaine patch, tylenol - PT/OT Abdominal pain 07/03/2022 07/05/2022 Assessment & Plan (07/04/2022 11:52 AM ORNAMENTAL PLASTERER HELPER): - Patient presenting with epigastric pain in [...] 07/05/2022 Assessment & Plan (07/05/2022 10:22 AM ORNAMENTAL PLASTERER HELPER): Patient with onset of bilateral facial spasm over V3 regions, lasting ~1-2min. Ca, Mg, K wnl. limited concern for lesion as etiology given bilateral - Trial baclofen - checking Cu level Assessment & Plan (07/04/2022 11:50 AM ORNAMENTAL PLASTERER HELPER): Patient with onset of bilateral facial spasm [...] on file Legal Sex Female 7:29 PM ORNAMENTAL PLASTERER HELPER Gender Identity Not on file Sexual Orientation Not on file Obstetrics History Last Filed Vital Signs Vital Sign Reading Time Taken Comments Blood Pressure 99/56 07/17/2022 7:30 AM ORNAMENTAL PLASTERER HELPER Pulse 67 07/17/2022 7:30 AM ORNAMENTAL PLASTERER HELPER Temperature 37.7 ??C (99.9 ??F) 07/17/2022 7:30 AM CS T Respiratory Rate 20 07/17/2022 7:30 AM ORNAMENTAL PLASTERER HELPER Oxygen Saturation 98% 07/17/2022 7:30 AM ORNAMENTAL PLASTERER HELPER Inhaled Oxygen Concentration - - Weight 42.8 kg (94 lb 5.7 oz) 07/14/2022 6:29 PM ORNAMENTAL PLASTERER HELPER Height 171 cm (5' 7.32 ) 07/14/2022 6:29 PM ORNAMENTAL PLASTERER HELPER Body Mass Index 14.64 07/14/2022 6:29 PM ORNAMENTAL PLASTERER HELPER Plan of Treatment Health Maintenance Due Date [...] GONORRHOEAE/C. TRACHOMATIS AMPLIFICATION STAT 06/18/2022 4:57 PM ORNAMENTAL PLASTERER HELPER from Last 3 Months or Most Recently Relevant to Health Maintenance Results * N. gonorrhoeae/C. trachomatis Amplification Urine (06/18/2022 4:57 PM ORNAMENTAL PLASTERER HELPER) C. trachomatis Not Detected Not Detected DES ROMO Comment:Testing performed by : [facility], [address] [place] [address]., [id number] N. gonorrhoeae Not Detected Not Detected DES Comment: Interpretive Data Testing performed by the [facility]. This assay detects Chlamydia trachomatis and [...] last revised on 2019. Testing performed by: [facility], [address] [place] [address]., [id number] Urine (None) 06/18/2022 4:57 PM ORNAMENTAL PLASTERER HELPER 06/18/2022 5:11 PM ORNAMENTAL PLASTERER HELPER Evelyn Cheema MD LAB MICROBIOLOGY - GEN ERAL ORDERABLES Final Result DES MH [id number] [facility] Department [place] [address] from Last 3 Months or Most Recently Relevant to Health Maintenance Insurance [address] [address] Advance Directives For more information, please contact: [phone] * Full Code (Latest Code Status on File) Date Activated Date Inactivated Comments 07/14/2022 6:47 PM 07/17/2022 6:03 PM * Full Code Date Activated Date Inactivated Comments 07/03/2022 9:03 PM 07/13/2022 5:08 PM Care Teams Occ Therapy Asst Relationship Specialty Start Date End Date Rita Lynn MD [address] [place] [id number] PCP - General Pediatrics 07/04/22 No, Physician 07/03/22
--- OUTSIDE RECORDS SUMMARY | 2024-07-02 08:07 | XMS_ITS | Referral Summary ---
Author Organization [facility] Address [address] [place] [address] Care Team Providers Care Seasonal Greenery Bundler Name Role Phone Rita Lynn MD Primary Care Provider [phone] No, Physician Unavailable Allergies Active Allergy Reactions [...] 07/14/2022 Assessment & Plan (07/16/2022 1:22 PM COMMERCIAL MANAGEMENT ACCOUNTANT): Lorraine Pacheco is a 17 y/o previously healthy F with one month hx of abdominal pain and emesis with recent admission to [facility] 07/03-07/13 who presents with recurrence of [...] Psychology Assessment & Plan (07/15/2022 4:44 PM COMMERCIAL MANAGEMENT ACCOUNTANT): Lorraine Pacheco is a 17 y/o previously healthy F with one month hx of abdominal pain and emesis with recent admission to [facility] 07/03-07/13 who presents with recurrence of [...] Psychology Assessment & Plan (07/14/2022 8:43 PM COMMERCIAL MANAGEMENT ACCOUNTANT): Lorraine Pacheco is a 17 y/o previously healthy F with one month hx of abdominal pain and emesis with recent admission to [facility] 07/03-07/13 who presents with recurrence of [...] c/s Assessment & Plan (07/14/2022 8:41 PM COMMERCIAL MANAGEMENT ACCOUNTANT): Lorraine Pacheco is a 17 y/o previously healthy F with one month hx of abdominal pain and emesis with recent admission to [facility] 07/03-07/13 who presents with recurrence of [...] 07/04/2022 Assessment & Plan (07/05/2022 10:25 AM COMMERCIAL MANAGEMENT ACCOUNTANT): 25 vit D on admission - started 50,000 units ergocalciferol qweek, plan x8w and repeat level Assessment & Plan (07/04/2022 11:49 AM COMMERCIAL MANAGEMENT ACCOUNTANT): 25 vit D on admission - started 50,000 units ergocalciferol qweek, plan x8w and repeat level High serum vitamin B12 07/04/2022 Assessment & Plan (07/07/2022 4:09 PM COMMERCIAL MANAGEMENT ACCOUNTANT): Hold supplementation Assessment & Plan (07/05/2022 10:25 AM COMMERCIAL MANAGEMENT ACCOUNTANT): Hold supplementation Assessment & Plan (07/04/2022 11:53 AM COMMERCIAL MANAGEMENT ACCOUNTANT): Hold supplementation Nausea & vomiting 07/03/2022 Assessment & Plan (07/13/2022 1:56 PM COMMERCIAL MANAGEMENT ACCOUNTANT): Patient presenting with subacute N/V with limited [...] plan. Assessment & Plan (07/05/2022 10:25 AM COMMERCIAL MANAGEMENT ACCOUNTANT): Patient presenting with subacute N/V with limited [...] GI Assessment & Plan (07/04/2022 11:51 AM COMMERCIAL MANAGEMENT ACCOUNTANT): Patient presenting with subacute N/V with limited [...] 07/03/2022 Assessment & Plan (07/13/2022 1:57 PM COMMERCIAL MANAGEMENT ACCOUNTANT): Patient reports intermittent blurry vision over both eyes over the past several days (not present during encounter). No complaints currently. 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 - May consider ophtho referral outpatient Assessment & Plan (07/03/2022 10:07 PM COMMERCIAL MANAGEMENT ACCOUNTANT): - Patient reports intermittent blurry vision over both eyes over the past several days (not present during encounter) - Unclear etiology - possible orthostatic; given history concern for 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; limited concern for optic neuritis given bilateral involvement - CTM, consider head imaging and ophthalmology consult if recurrent/ongoing during admission Severe malnutrition (CMS/HCC) 07/03/2022 Assessment & Plan (07/13/2022 1:58 PM COMMERCIAL MANAGEMENT ACCOUNTANT): Patient with chronically low BMI per chart review with current BMI 14 and reported 10 lb weight loss recently related to vomiting and poor po intake - TF were started, but patient tolerating reg diet with no emesis, no concerns for malabsorption so TF not indicated at this time. Will plan to remove NG tube today. Assessment & Plan (07/05/2022 10:25 AM COMMERCIAL MANAGEMENT ACCOUNTANT): Patient with chronically low BMI per chart review with current BMI 14 and reported 10 lb weight loss recently related to vomiting and poor po intake - RD consult - ADAT, Ensure TIDAC - Calorie Count Assessment & Plan (07/04/2022 11:49 AM COMMERCIAL MANAGEMENT ACCOUNTANT): Patient with chronically low BMI per chart review with current BMI 14 and reported 10 lb weight loss recently related to vomiting and poor po intake - RD consult - ADAT, Ensure TIDAC - Calorie Count Resolved Problems Problem Noted Date Diagnosed Date Resolved Date Acute dystonic reaction due to drugs 07/05/2022 07/08/2022 Assessment & Plan (07/07/2022 4:09 PM COMMERCIAL MANAGEMENT ACCOUNTANT): Likely due to heavy use of compazine [...] resolved Assessment & Plan (07/05/2022 10:24 AM COMMERCIAL MANAGEMENT ACCOUNTANT): Likely due to heavy use of compazine [...] 07/14/2022 Assessment & Plan (07/10/2022 9:52 AM COMMERCIAL MANAGEMENT ACCOUNTANT): Likely musculoskeletal in since it only happens after vomiting or gagging. Assessment & Plan (07/05/2022 10:22 AM COMMERCIAL MANAGEMENT ACCOUNTANT): - Constant of L upper chest/shoulder region - worse with palpation and arm movement - hs-trop/EKG unremarkable; suspect MSK in etiology - Trial lidocaine patch, tylenol - PT/OT Assessment & Plan (07/03/2022 9:53 PM COMMERCIAL MANAGEMENT ACCOUNTANT): - Constant of L upper chest/shoulder region - worse with palpation and arm movement - hs-trop/EKG unremarkable; suspect MSK in etiology - Trial lidocaine patch, tylenol - PT/OT Abdominal pain 07/03/2022 07/05/2022 Assessment & Plan (07/04/2022 11:52 AM COMMERCIAL MANAGEMENT ACCOUNTANT): - Patient presenting with epigastric pain in [...] 07/05/2022 Assessment & Plan (07/05/2022 10:22 AM COMMERCIAL MANAGEMENT ACCOUNTANT): Patient with onset of bilateral facial spasm over V3 regions, lasting ~1-2min. Ca, Mg, K wnl. limited concern for lesion as etiology given bilateral - Trial baclofen - checking Cu level Assessment & Plan (07/04/2022 11:50 AM COMMERCIAL MANAGEMENT ACCOUNTANT): Patient with onset of bilateral facial spasm [...] on file Legal Sex Female 7:29 PM COMMERCIAL MANAGEMENT ACCOUNTANT Gender Identity Not on file Sexual Orientation Not on file Last Filed Vital Signs Vital Sign Reading Time Taken Comments Blood Pressure 99/56 07/17/2022 7:30 AM COMMERCIAL MANAGEMENT ACCOUNTANT Pulse 67 07/17/2022 7:30 AM COMMERCIAL MANAGEMENT ACCOUNTANT Temperature 37.7 ??C (99.9 ??F) 07/17/2022 7:30 AM CS T Respiratory Rate 20 07/17/2022 7:30 AM COMMERCIAL MANAGEMENT ACCOUNTANT Oxygen Saturation 98% 07/17/2022 7:30 AM COMMERCIAL MANAGEMENT ACCOUNTANT Inhaled Oxygen Concentration - - Weight 42.8 kg (94 lb 5.7 oz) 07/14/2022 6:29 PM COMMERCIAL MANAGEMENT ACCOUNTANT Height 171 cm (5' 7.32 ) 07/14/2022 6:29 PM COMMERCIAL MANAGEMENT ACCOUNTANT Body Mass Index 14.64 07/14/2022 6:29 PM COMMERCIAL MANAGEMENT ACCOUNTANT Plan of Treatment Not on file Procedures Procedure Name Priority Date/Time Associated Diagnosis Comments N. GONORRHOEAE/C. TRACHOMATIS AMPLIFICATION STAT 06/18/2022 4:57 PM COMMERCIAL MANAGEMENT ACCOUNTANT from Last 3 Months or Most Recently Relevant to Health Maintenance Results * N. gonorrhoeae/C. trachomatis Amplification Urine (06/18/2022 4:57 PM COMMERCIAL MANAGEMENT ACCOUNTANT) C. trachomatis Not Detected Not Detected DES ROMO Comment:Testing performed by : [facility], [address] [place] [address]., [id number] N. gonorrhoeae Not Detected Not Detected DES ROMO Comment: Interpretive Data Testing performed by the [facility]. This assay detects Chlamydia trachomatis [...] last revised on 2019. Testing performed by: [facility], [address] [place] [address]., [id number] Urine (None) 06/18/2022 4:57 PM COMMERCIAL MANAGEMENT ACCOUNTANT 06/18/2022 5:11 PM COMMERCIAL MANAGEMENT ACCOUNTANT Evelyn Cheema MD LAB MICROBIOLOGY - GEN ERAL ORDERABLES Final Result Performing Organization Address City/State/ZIP Co me Phone Number DES ROMO [address] [facility] Department [place] [address] from Last 3 Months or Most Recently Relevant to [place] [address] [facility] [address] Advance Directives For more information, please contact: [phone] * Full Code (Latest Code Status on File) Date Activated Date Inactivated Comments 07/14/2022 6:47 PM 07/17/2022 6:03 PM * Full Code Date Activated Date Inactivated Comments 07/03/2022 9:03 PM 07/13/2022 5:08 PM Care Teams Seasonal Greenery Bundler Relationship Specialty Start Date End Date Rita Lynn MD [address] [place] [id number] PCP - General Pediatrics 07/04/22 No, Physician 07/03/22
--- OUTSIDE RECORDS SUMMARY | 2024-07-02 08:07 | XMS_ITS | Encounter Summary ---
Author Organization [facility] Address [address] [place] [address] Care Team Providers Care Blue Line Hanger Name Role Phone Rita Lynn MD Primary Care Provider [phone] No, Physician Unavailable Reason for Visit * Reason Onset Date Comments Admit Notification 07/14/2022 Encounter Details Date Type Department Care Team (Late st Contact Info) Description 07/14/2022 Telephone [facility] [address] Line [address] [place] [address] Miscellaneous, Not In File Admit Notification Social History Tobacco Use Types Packs/Day Years Used Date Smoking Tobacco: Some Days Vaping Comments No Sex and Gender Information Value Date Recorded Sex Assigned at Not on file Legal Sex Female 7:29 PM SENIOR JAVA DEVELOPER Gender Identity Not on file Sexual Orientation Not on file documented as of this encounter Miscellaneous Notes * Telephone Encounter - Samantha Vega - 07/14/2022 8:10 PM CST Admission Notification PATIENT NAME: Lorraine Pacheco PATIENT : 2005 PATIENT PCP: Rita Lynn MD HOSPITAL: [facility] ROOM NUMBER: [id number] -A DIAGNOSIS: Abdominal Pain PROVIDER CONTACTED: Faxed to office EXCHANGE ACTION TAKEN: Faxed only OR JAVA DEVELOPER documented in this encounter Plan of Treatment Not on file documented as of this encounter Visit Diagnoses Not on filedocumented in this encounter Additional Health Concerns Infection Onset Date Last Indicated Resolved Time COVID: Suspected 07/14/2022 07/14/2022 07/14/2022 5:58 PM SENIOR JAVA DEVELOPER documented as of this encounter Care Teams Blue Line Hanger Relationship Specialty Start Date End Date Rita Lynn MD [address] [place] [id number] PCP - General Pediatrics 07/04/22 No, Physician 07/03/22 documented as of this encounter
--- OUTSIDE RECORDS SUMMARY | 2024-07-02 08:07 | XMS_ITS | Encounter Summary ---
Author Organization [facility] Healthcare Address [address] [place] [address] Care Team Providers Care Pet Handler Name Role Phone Basim Lynn MD Primary Care Provider [phone] No, Physician Unavailable Reason for Visit * Reason Comments Abdominal Pain * Auth/Cert Specialty Diagnoses / Procedures Referred By Contac t Referred To Contact Diagnoses Abdominal pain R10.9 (ICD-10-CM) - Abdominal pain Procedures na Referral ID Status Reason Start Date Expiration Date Visits Re quested Visits Authorized [id number] 1 1 Encounter Details Date Type Department Care Team (Late st Contact Info) Description 07/14/2022 3:33 PM SLUG PRESS OPERATOR - 07/17/2022 1:00 PM [facility] Emergency [facility] [address] [place] [address] Marko Thayer MD [address] [address] Soheila Andres MD [address] [address] Ayaan Espino MD [address] [address] Abdominal pain (Primary Dx) Discharge Disposition: Discharge to home or self care Social History Tobacco Use Types Packs/Day Years Used Date Smoking Tobacco: Some Days Vaping Comments No Sex and Gender Information Value Date Recorded Sex Assigned at Not on file Legal Sex Female 7:29 PM SLUG PRESS OPERATOR Gender Identity Not on file Sexual Orientation Not on file documented as of this encounter Last Filed Vital Signs Vital Sign Reading Time Taken Comments Blood Pressure 99/56 07/17/2022 7:30 AM SLUG PRESS OPERATOR Pulse 67 07/17/2022 7:30 AM SLUG PRESS OPERATOR Temperature 37.7 ??C (99.9 ??F) 07/17/2022 7:30 AM CS T Respiratory Rate 20 07/17/2022 7:30 AM SLUG PRESS OPERATOR Oxygen Saturation 98% 07/17/2022 7:30 AM SLUG PRESS OPERATOR Inhaled Oxygen Concentration - - Weight 42.8 kg (94 lb 5.7 oz) 07/14/2022 6:29 PM SLUG PRESS OPERATOR Height 171 cm (5' 7.32 ) 07/14/2022 6:29 PM SLUG PRESS OPERATOR Body Mass Index 14.64 07/14/2022 6:29 PM SLUG PRESS OPERATOR Body Mass Index Percentile 0.00% 07/14/2022 6:2 9 PM SLUG PRESS OPERATOR Growth Chart: [facility] (Girls, 2- 20 Years) documented in this encounter Discharge Summaries * Antione Carcamo MD - 07/17/2022 11:28 AM CST Inpatient Discharge Summary BRIEF OVERVIEW Admitting Provider: Soheila Andres MD Discharge Provider: Soheila Andres MD Primary Care Physician at Discharge: Basim Lynn MD [phone] Admission Date: 07/14/2022 Discharge Date: 07/17/2022 Admission Location: [facility] Problems/Diagnoses: Principal Problem: Abdominal pain Resolved Problems: No resolved hospital problems. DETAILS OF HOSPITAL STAY Presenting Problem/History of Present Illness: Lorraine diaz is a previously healthy 17 y/o F who has a one month hx of abdominal pain and vomiting who was recently admitted to [facility] from 07/03 to 07/13 for these sx [...] episodes of NBNB emesis prompting representation at [facility] ED. Repeat CBC, CMP, RVP and EKG [...] MD Specialty: Pediatrics Relationship: PCP - General [address] [address] Next Steps: Follow up Questions: To provider: BASIM LYNN Cosigned by Soheila Andres MD at 07/17/2022 12:48 PM SLUG PRESS OPERATOR PRESS OPERATOR PRESS OPERATOR Associated attestation - Soheila Andres MD - 07/17/2022 12:48 PM SLUG PRESS OPERATOR I have seen and examined the patient [...] Antione Carcamo MD - 07/16/2022 1:35 PM SLUG PRESS OPERATOR Upon returning home continue to take your [...] make an appointment at your earliest convenience. PRESS OPERATOR PRESS OPERATOR PRESS OPERATOR documented in this encounter Medications at Time [...] and intake. Pt with recent admission at [facility] and was on tube feedings. No plan for specific nutrition intervention at this time. Please consult dietitian for additional nutrition risk concerns. PRESS OPERATOR * Antione Carcamo MD - 07/16/2022 1:22 [...] with recent admission to [facility] 07/03-07/13 who presents with recurrence of sx. [...] Soheila Andres MD at 07/16/2022 5:27 PM SLUG PRESS OPERATOR PRESS OPERATOR PRESS OPERATOR Associated attestation - Soheila Andres MD - 07/16/2022 5:27 PM SLUG PRESS OPERATOR I have seen and examined the patient [...] EKG/Min 92 BPM Atrial Rate 92 BPM CA-Interval (MSEC) 172 ms QRS-Interval (MSEC) 72 ms QT-Interval (MSEC) 348 ms QTc 432 ms P [place] 66 degrees R [place] 75 degrees T [place] 62 degrees Diagnosis Normal sinus rhythm Possible Left atrial enlargement No previous ECGs available Confirmed by fellow Marko Carlisle ([id number]) on 07/14/2022 5:45:16 PM I have personally reviewed the study and I agree with the above findings Confirmed by Radha Hwang ([id number]) on 07/14/2022 10:36:46 PM Assessment/Plan * Abdominal pain Assessment & Plan Lorraine Diaz is a 17 y/o previously healthy F with one month hx of abdominal pain and emesis with recent admission to [facility] 07/03-07/13 who presents with recurrence of sx. [...] Soheila Andres MD at 07/15/2022 5:54 PM SLUG PRESS OPERATOR PRESS OPERATOR PRESS OPERATOR Associated attestation - Soheila Andres MD - 07/15/2022 5:54 PM SLUG PRESS OPERATOR I have seen and examined the patient [...] MJ daily prior to recent hospitalization at [facility]. documented in this encounter H&P Notes * Antione Carcamo MD - 07/14/2022 8:44 PM CST History and Physical Subjective Patient is a 17 y.o. female with chief complaint of abdomina pain. HPI: Lorraine diaz is a previously healthy 17 y/o F who has a one month hx of abdominal pain and vomiting who was recently admitted to [facility] from 07/03 to 07/13 for these sx. [...] episodes of NBNB emesis prompting representation at [facility] ED. VS were stable and exam was [...] with recent admission to [facility] 07/03-07/13 who presents with recurrence of sx. [...] Ayaan Espino MD at 07/15/2022 3:04 AM SLUG PRESS OPERATOR PRESS OPERATOR PRESS OPERATOR Associated attestation - Ayaan Espino MD - 07/15/2022 3:04 AM SLUG PRESS OPERATOR ATTENDING DOCUMENTATION I have seen and examined the patient on 07/14/2022. Pt is an 17 yo F with no sig PMH that presents with 1 mo hx of abd pain, emesis, abd pain with recent admit for 11 days at [facility] for similar complaints. Pt received extensive [...] of emesis this AM, thus re-presented. In [facility] ED, CBC, CMP, RVP negative. Phos low [...] duration - Pt with extensive workup at [facility] for 11 days. CMP/CBC, lipase 55, hs-trop [...] Head imaging negative. - Psych consulted at [facility], rec'ed SSRI, but patient refused - GI consulted in ED; appreciate assistance - start MIVFs, treat symptomatically. Consider trial of erythromycin/reglan I agree with the findings and plan of care as documented in the resident's/fellow's note. Ayaan Espino MD documented in this encounter Nursing Notes * Linette Morgan RN - 07/17/2022 11:40 AM CST Discharge instructions reviewed..Patient stable.. discharged home with grandparent. PRESS OPERATOR documented in this encounter ED Notes * Luis Zayas MD - 07/14/2022 3:55 PM CST HPI Chief Complaint Patient presents with Abdominal Pain Lorraine is an 17 yo female with a 1 month hx of abdominal pain, vomiting presenting with abdominal pain. She was recently admitted from to [facility] for these complaints as well as malnutrition.Her [...] She has had an extensive workup at [facility] last week including labs and abdominal/intracranial imaging. [...] Marko Thayer MD at 07/15/2022 7:59 AM SLUG PRESS OPERATOR PRESS OPERATOR PRESS OPERATOR Associated attestation - Marko Thayer MD - 07/15/2022 7:59 AM SLUG PRESS OPERATOR I have seen and examined the patient [...] her heart. Mother was just discharged from [facility] after a 10 day admission yesterday. PRESS OPERATOR * Mega Baltazar - 07/14/2022 3:33 PM CST Bed: ED1-10 Expected date: Expected time: Means of arrival: Ambulance Comments: PRESS OPERATOR documented in this encounter Miscellaneous Notes * [...] nausea/emesis, no abd pain, remain safe Summary: PRESS OPERATOR * Plan of Care - Magnolia Valero [...] Goal: Pain level will decrease Outcome: Progressing PRESS OPERATOR * Assessment & Plan Note - Antione Carcamo MD - 07/16/2022 1:20 PM SLUG PRESS OPERATOR Associated Problem(s): Abdominal pain Lorraine Diaz is a 17 y/o previously healthy F with one month hx of abdominal pain and emesis with recent admission to [facility] 07/03-07/13 who presents with recurrence of sx. [...] wnl [ ] Consider consult to Psychology PRESS OPERATOR PRESS OPERATOR * Subjective & Objective - Antione Carcamo MD - 07/16/2022 1:19 PM SLUG PRESS OPERATOR Pediatric Daily Progress Subjective Chief complaint of [...] previous visit (from the past 24 hour(s)). PRESS OPERATOR * Plan of Care - Honey Mo RN - 07/16/2022 9:55 AM SLUG PRESS OPERATOR Goals: Clinical Goals for the Shift: decreased [...] Goal: Pain level will decrease Outcome: Progressing PRESS OPERATOR * Plan of Care - Lisa Moore [...] Goal: Pain level will decrease Outcome: Progressing PRESS OPERATOR * Assessment & Plan Note - Antione Carcamo MD - 07/15/2022 4:41 PM SLUG PRESS OPERATOR Associated Problem(s): Abdominal pain Lorraine Diaz is a 17 y/o previously healthy F with one month hx of abdominal pain and emesis with recent admission to [facility] 07/03-07/13 who presents with recurrence of sx. [...] wnl [ ] Consider consult to Psychology PRESS OPERATOR * Subjective & Objective - Antione Carcamo MD - 07/15/2022 4:34 PM SLUG PRESS OPERATOR Pediatric Daily Progress Subjective Chief complaint of [...] EKG/Min 92 BPM Atrial Rate 92 BPM CA-Interval (MSEC) 172 ms QRS-Interval (MSEC) 72 ms QT-Interval (MSEC) 348 ms QTc 432 ms P [place] 66 degrees R [place] 75 degrees T [place] 62 degrees Diagnosis Normal sinus rhythm Possible Left atrial enlargement No previous ECGs available Confirmed by fellow Marko Carlisle ([id number]) on 07/14/2022 5:45:16 PM I have personally reviewed the study and I agree with the above findings Confirmed by Radha Hwang ([id number]) on 07/14/2022 10:36:46 PM PRESS OPERATOR * Hospital Course - Antione Carcamo MD - 07/15/2022 4:11 PM CST History of Presenting Illness: Lorraine diaz is a previously healthy 17 y/o F who has a one month hx of abdominal pain and vomiting who was recently admitted to [facility] from 07/03 to 07/13 for these sx [...] episodes of NBNB emesis prompting representation at [facility] ED. Repeat CBC, CMP, RVP and EKG [...] with plans to f/u with her PCP. PRESS OPERATOR PRESS OPERATOR PRESS OPERATOR PRESS OPERATOR * Plan of Care - Linette Morgan [...] Patient will have adequate pain control. Summary: PRESS OPERATOR * Plan of Lisa Vera RN - [...] Goal: Pain level will decrease Outcome: Progressing PRESS OPERATOR * Subjective & Objective - Antione Carcamo MD - 07/14/2022 8:43 PM SLUG PRESS OPERATOR History and Physical Subjective Patient is a 17 y.o. female with chief complaint of abdomina pain. HPI: Lorraine diaz is a previously healthy 17 y/o F who has a one month hx of abdominal pain and vomiting who was recently admitted to [facility] from 07/03 to 07/13 for these sx. [...] episodes of NBNB emesis prompting representation at [facility] ED. VS were stable and exam was [...] eGFR >90 90 - 130 mL/min/1.73 m2 PRESS OPERATOR * Assessment & Plan Note - Antione Carcamo MD - 07/14/2022 8:43 PM SLUG PRESS OPERATOR Associated Problem(s): Abdominal pain Lorraine Diaz is a 17 y/o previously healthy F with one month hx of abdominal pain and emesis with recent admission to [facility] 07/03-07/13 who presents with recurrence of sx. [...] [ ] Consider need for GI c/s PRESS OPERATOR * Assessment & Plan Note - Antione Carcamo MD - 07/14/2022 8:26 PM SLUG PRESS OPERATOR Associated Problem(s): Abdominal pain Lorraine Diaz is a 17 y/o previously healthy F with one month hx of abdominal pain and emesis with recent admission to [facility] 07/03-07/13 who presents with recurrence of sx. [...] [ ] Consider need for GI c/s PRESS OPERATOR * Subjective & Objective - Antione Carcamo MD - 07/14/2022 7:33 PM SLUG PRESS OPERATOR History and Physical Subjective Patient is a 17 y.o. female with chief complaint of abdominal pain. HPI: Lorraine diaz is a previously healthy 17 y/o F who has a one month hx of abdominal pain and vomiting who was recently admitted to [facility] from 07/03 to 07/13 for these sx. [...] episodes of NBNB emesis prompting representation at [facility] ED. VS were stable and exam was [...] eGFR >90 90 - 130 mL/min/1.73 m2 PRESS OPERATOR * ED Pre-Arrival Note - Ro Monahan RN - 07/14/2022 3:11 PM SLUG PRESS OPERATOR Pre-Arrival Note Unable to get full pre hospital report from EMS d/t phone connectivity issues. Was able to get thatpt is an 17yo F c/o abdominal pain and chest pain over the last month. Pt has been seen multiple times in multiple different ER's. Unable to copy any further report. Ro Monahan RN PRESS OPERATOR documented in this encounter Plan of Treatment Not on file documented as of this encounter Procedures Procedure Name Priority Date/Time Associated Diagnosis Comments XR ABDOMEN ERECT AND OR DECUBITS 2 VIEWS ED Urgent/IP Urgent 07/15/2022 1:00 PM SLUG PRESS OPERATOR ECG 12-LEAD Routine 07/14/2022 4:47 PM SLUG PRESS OPERATOR EGFR STAT 07/14/2022 4:43 PM SLUG PRESS OPERATOR DIFFERENTIAL AUTO STAT 07/14/2022 4:4 3 PM SLUG PRESS OPERATOR RESPIRATORY PATHOGEN PANEL Routine 07/14/2022 4:43 PM SLUG PRESS OPERATOR CBC WITH AUTO DIFFERENTIAL STAT 07/14/2022 4:43 PM SLUG PRESS OPERATOR PHOSPHORUS STAT 07/14/2022 4:43 PM SLUG PRESS OPERATOR MAGNESIUM STAT 07/14/2022 4:43 PM SLUG PRESS OPERATOR LIPASE STAT 07/14/2022 4:43 PM SLUG PRESS OPERATOR COMPREHENSIVE METABOLIC PANEL STAT 07/14/2022 4:43 PM SLUG PRESS OPERATOR documented in this encounter Results * XR Abdomen Erect and or Decubitus 2 Views (07/15/2022 1:00 PM SLUG PRESS OPERATOR) Anatomical Region Laterality Modality Body, Abdomen N/A Computed Radiogr aphy 07/15/2022 1:10 PM SLUG PRESS OPERATOR Impressions 07/15/2022 1:10 PM SLUG PRESS OPERATOR Normal bowel gas pattern. Electronically signed by: Cesar Landers M.D. Narrative 07/15/2022 1:10 PM SLUG PRESS OPERATOR EXAMINATION: ??XR ABDOMEN ERECT AND OR DECUBITUS [...] * ECG 12 lead (07/14/2022 4:47 PM SLUG PRESS OPERATOR) Pathologist [facility] Ventricular Rate EKG/Min 92 BPM [facility] Atrial Rate 92 BPM [facility] CA-Interval (MSEC) 172 ms [facility] QRS-Interval (MSEC) 72 ms [facility] QT-Interval (MSEC) 348 ms [facility] QTc 432 ms [facility] P [place] 66 degrees [facility] R [place] 75 degrees [facility] T [place] 62 degrees [facility] Diagnosis Normal sinus rhythm Possible Left atrial enlargement No previous ECGs available Confirmed by fellow Marko Carlisle ([id number]) on 07/14/2022 5:45:16 PM I have personally reviewed the study and I agree with the above findings Confirmed by Radha Hwang ([id number]) on 07/14/2022 10:36:46 PM [facility] 07/14/2022 4:47 PM SLUG PRESS OPERATOR 07/14/2022 10:36 PM SLUG PRESS OPERATOR us Marko Thayer MD ECG ORDERABLES Final Resu lt [facility] * eGFR (07/14/2022 4:43 PM SLUG PRESS OPERATOR) Pathologist [facility] eGFR >90 90 - 130 mL/min/1. [...] last reviewed 2021. Blood 07/14/2022 4:43 PM SLUG PRESS OPERATOR 07/14/2022 5:02 PM SLUG PRESS OPERATOR us Marko Thayer MD LAB BLOOD ORDERABLES Final Result [facility] Department [place] [address] * Differential, auto (07/14/2022 4:43 PM SLUG PRESS OPERATOR) Neutrophil abs 4.1 1.7 - 6.5 K/cumm [facility] Imm gran abs 0.0 0.0 - 0.1 K/cumm [facility] Lymphocyte abs 1.1 0.8 - 3.3 K/cumm [facility] Monocyte abs 0.3 0.2 - 0.8 K/cumm [facility] Eosinophil abs 0.0 0.0 - 0.5 K/cumm [facility] Basophil abs 0.0 0.0 - 0.1 K/cumm [facility] Neutrophil pct 73.8 % [facility] Comment: Interpretive Data Percent cell count reference ranges are not reported, since discordance with absolute values may lead to misinterpretation of CBC data. Current Interpretive Data was last revised on 2017. Imm gran pct 0.5 % [facility] Comment: Interpretive Data Percent cell count reference ranges are not reported, since discordance with absolute values may lead to misinterpretation of CBC data. Current Interpretive Data was last revised on 2017. Lymphocyte pct 19.3 % [facility] Comment: Interpretive Data Percent cell count reference ranges are not reported, since discordance with absolute values may lead to misinterpretation of CBC data. Current Interpretive Data was last revised on 2017. Monocyte pct 5.4 % [facility] Comment: Interpretive Data Percent cell count reference ranges are not reported, since discordance with absolute values may lead to misinterpretation of CBC data. Current Interpretive Data was last revised on 2017. Eosinophil pct 0.5 % [facility] Comment: Interpretive Data Percent cell count reference ranges are not reported, since discordance with absolute values may lead to misinterpretation of CBC data. Current Interpretive Data was last revised on 2017. Basophil pct 0.5 % [facility] Comment: Interpretive Data Percent cell count reference ranges are not reported, since discordance with absolute values may lead to misinterpretation of CBC data. Current Interpretive Data was last revised on 2017. Blood 07/14/2022 4:43 PM SLUG PRESS OPERATOR 07/14/2022 5:02 PM SLUG PRESS OPERATOR Marko Thayer MD LAB BLOOD ORDERABLES Final Result Performing Organization Address City/State/[facility] Co de Phone Number [facility] Department [place] [address] * Respiratory pathogen panel Nasopharyngeal (07/14/2022 4:43 PM SLUG PRESS OPERATOR) Pathologist [facility] Influenza A RNA Not Detected Not [...] Not Detected Not Detected [facility] Comment: Interpretive Data The APROOFED FilmArray Respiratory Panel (RP2.1) assay is a [...] assay has FDA clearance for testing of PUBLIC TRANSIT BUS DRIVER swabs. ?? The performance characteristics of this assay have been determined by [facility]. Current interpretive data was last revised on 2021. Nasopharyngeal 07/14/2022 4: 43 PM SLUG PRESS OPERATOR 07/14/2022 5:02 PM SLUG PRESS OPERATOR Narrative [facility] - 07/14/2022 5:57 PM SLUG PRESS OPERATOR Is the Patient experiencing symptoms consistent with COVID?->Yes Date of Symptom Onset->07/14/22 Reason for testing?->Bed placement or semi-private room Surveillance testing for transplant patient?->No Marko Thayer MD LAB MICROBIOLOGY - GENERAL ORDERABLES Final Result Performing Organization Address [facility] [place] [address] * (ABNORMAL) Phosphorus (07/14/2022 4:43 PM SLUG PRESS OPERATOR) Phosphorus, pl 2.0(L) 2.3 - 4.5 mg/dL [facility] Blood 07/14/2022 4:43 PM SLUG PRESS OPERATOR 07/14/2022 5:02 PM SLUG PRESS OPERATOR Marko Thayer MD LAB BLOOD ORDERABLES Final Result Performing Organization Address [facility] [place] [address] * Magnesium (07/14/2022 4:43 PM SLUG PRESS OPERATOR) Magnesium 1.9 1.4 - 2.5 mg/dL [facility] Blood 07/14/2022 4:43 PM SLUG PRESS OPERATOR 07/14/2022 5:02 PM SLUG PRESS OPERATOR us Marko Thayer MD LAB BLOOD ORDERABLES Final Result Performing Organization Address [facility] [place] [address] * (ABNORMAL) Comprehensive metabolic panel (07/14/2022 4:43 PM SLUG PRESS OPERATOR) Sodium 140 135 - 145 mmol/L [facility] Potassium, pl 3.6 3.3 - 4.9 mmol/L [facility] Chloride 105 97 - 110 mmol/L [facility] CO2 23 22 - 32 mmol/L [facility] Anion gap 12 2 - 15 mmol/L [facility] BUN 8 8 - 25 mg/dL [facility] Creatinine 0.75 0.40 - 1.00 mg/dL [facility] Glucose 109 70 - 199 mg/dL [facility] Comment: Interpretive Data Fasting glucose >/= 126 [...] Calcium 9.8 8.5 - 10.3 mg/dL [facility] Bilirubin, total 0.5 0.1 - 1.2 mg/dL [facility] Protein, pl 7.1 6.5 - 8.5 g/dL [facility] Albumin 4.4 3.5 - 5.0 g/dL [facility] Alk phos 41(L) 70 - 260 Units/L [facility] ALT 9 7 - 45 Units/L [facility] AST 25 10 - 45 Units/L [facility] Comment:Hemolyzed; results m ay be falsely elevated. Blood 07/14/2022 4:43 PM SLUG PRESS OPERATOR 07/14/2022 5:02 PM SLUG PRESS OPERATOR Marko Thayer MD LAB BLOOD ORDERABLES Final Result [facility] Department [place] [address] * CBC with auto differential (07/14/2022 4:43 PM SLUG PRESS OPERATOR) WBC 5.5 3.8 - 9.9 K/cumm [facility] Hgb 12.8 11.9 - 15.5 g/dL [facility] Hct 37.5 35.6 - 45.5 % [facility] Plt 188 150 - 400 K/cumm [facility] MPV 10.6 9.1 - 12.3 fL [facility] RBC 4.52 3.90 - 5.20 M/cumm [facility] MCV 83.0 81.3 - 96.4 fL [facility] MCH 28.3 27.1 - 33.3 pg [facility] MCHC 34.1 32.3 - 35.7 g/dL [facility] RDW CV 13.2 11.1 - 14.9 % [facility] RDW SD 39.8 35.7 - 48.1 fL [facility] NRBC abs 0.00 0.00 - 0.01 K/cumm [facility] Blood (Blood, Venous) 07/14/2022 4:43 PM SLUG PRESS OPERATOR 07/14/2022 5:02 PM SLUG PRESS OPERATOR Marko Thayer MD LAB BLOOD ORDERABLES Final Result Performing Organization Address City/[facility]/ZIP Co de Phone Number [facility] [employer] [place] [address] * Lipase (07/14/2022 4:43 PM SLUG PRESS OPERATOR) Lipase 69 10 - 99 Units/L [facility] Blood 07/14/2022 4:43 PM SLUG PRESS OPERATOR 07/14/2022 5:02 PM SLUG PRESS OPERATOR Marko Thayer MD LAB BLOOD ORDERABLES Final Result Performing Organization Address City/[facility]/ZIP Co de Phone Number [facility] [place] [employer] [place] [address] documented in this encounter Visit Diagnoses Diagnosis [...] a 1:1 ratio Given 07/15/2022 10:31 AM SLUG PRESS OPERATOR 10 mL aprepitant (EMEND) capsule 125 mg 125 mg (2.92 mg/kg), oral, Once, On Tue07/15/22 at 1330, For 1 dose Given 07/15/2022 2:39 PM SLUG PRESS OPERATOR 125 mg aprepitant (EMEND) capsule 80 mg 80 mg (1.87 mg/kg), oral, Daily, First dose on Tue07/16/22 at 0900, For 2 doses Given 07/17/2022 8:06 AM SLUG PRESS OPERATOR 80 mg Given 07/16/2022 8:06 AM SLUG PRESS OPERATOR 80 mg calcium carbonate (TUMS) chewable tablet 1,000 mg 1,000 mg (23.4 mg/kg, rounded from 1,070 mg = 10 mg/kg of elemental calcium ? 42.8 kg Dosing weight), oral, Every 4 hours PRN, indigestion, 2nd line, Starting on Tue07/15/22 at 0300 Given 07/15/2022 12:02 PM SLUG PRESS OPERATOR 1,000 mg capsaicin (ZOSTRIX) 0.025 % cream 1 application 1 application (deactivated), topical, 4 times daily PRN, irritation, Starting on Tue07/15/22 at 0200, Apply to affected area: abdomen dextrose 5% and sodium chloride 0.9% with potassium chloride 20 mEq/L infusion (premix) 83 mL/hr, intravenous, Continuous, Starting on Tue07/14/22 at 2014 New Bag 07/16/2022 2:00 AM SLUG PRESS OPERATOR 83 mL/hr 83 mL/hr New Bag 07/15/2022 8:36 AM SLUG PRESS OPERATOR 83 mL/hr 83 mL/hr New Bag 07/14/2022 7:49 PM SLUG PRESS OPERATOR 83 mL/hr 83 mL/hr diphenhydrAMINE (BENADRYL) injection 50 mg 50 mg (1.17 mg/kg), intravenous, Administer over 15 Minutes, Once, On Tue07/15/22 at 0245, For 1 dose Given 07/15/2022 2:37 AM SLUG PRESS OPERATOR 50 mg diphenhydrAMINE (BENADRYL) tab/cap 25 mg 25 mg (0.584 mg/kg), oral, Every 6 hours PRN, other, nausea, Starting on Tue07/15/22 at 1805 Given 07/16/2022 3: 14 AM SLUG PRESS OPERATOR 25 mg Given 07/15/2022 6:41 PM SLUG PRESS OPERATOR 25 mg ketorolac (TORADOL) 30 mg/mL (1 mL) injection 21.3 mg 21.3 mg (0.498 mg/kg, rounded from 21.4 mg = 0.5 mg/kg ? 42.8 kg Dosing weight), intravenous, Administer over 5 Minutes, Every 6 hours, First dose (after last modification) on Tue07/14/22 at 2100, For 1 day Given 07/15/2022 8:37 AM SLUG PRESS OPERATOR 21.3 mg Given 07/15/2022 2:50 AM SLUG PRESS OPERATOR 21.3 mg Given 07/14/2022 9:13 PM SLUG PRESS OPERATOR 21.3 mg lansoprazole (PREVACID) capsule 30 mg 30 mg (0.701 mg/kg), oral, Daily, First dose on Tue07/14/22 at 1945, Capsules may be opened and contents mixed with food or beverage. Contents should not be crushed or chewed after mixing., Indications: refluxIndications:reflux Given 07/17/2022 8: 06 AM SLUG PRESS OPERATOR 30 mg Given 07/16/2022 8:06 AM SLUG PRESS OPERATOR 30 mg Given 07/15/2022 5:46 AM SLUG PRESS OPERATOR 30 mg morphine injection 2 mg 2 mg (0.0468 mg/kg), intravenous, Administer over 5 Minutes, Once, On Tue07/14/22 at 1703, For 1 dose Given 07/14/2022 5:09 PM SLUG PRESS OPERATOR 2 mg ondansetron (ZOFRAN) injection 4 mg 4 mg (0.0935 mg/kg), intravenous, Administer over 15 Minutes, Once, On Tue07/14/22 at 2330, For 1 dose Given 07/14/2022 11:06 PM SLUG PRESS OPERATOR 4 mg ondansetron (ZOFRAN) injection 4 mg 4 mg (0.0935 mg/kg), intravenous, Administer over 15 Minutes, Once, On Tue07/15/22 at 0500, For 1 dose Given 07/15/2022 5:00 AM SLUG PRESS OPERATOR 4 mg ondansetron ODT (ZOFRAN-ODT) disintegrating tablet 4 mg 4 mg (0.0937 mg/kg), oral, Once, On Tue07/14/22 at 1556, For 1 dose Given 07/14/2022 3:59 PM SLUG PRESS OPERATOR 4 mg ondansetron ODT (ZOFRAN-ODT) disintegrating tablet 4 mg 4 mg (0.0935 mg/kg), oral, Every 6 hours PRN, nausea, vomiting, 1st line for nausea/vomiting, Starting on Tue07/14/22 at 2200 Given 07/16/2022 1:58 AM SLUG PRESS OPERATOR 4 mg Given 07/14/2022 9:52 PM SLUG PRESS OPERATOR 4 mg polyethylene glycol (MIRALAX) packet 17 g 17 g, oral, Daily, First dose on Tue07/14/22 at 1945, Indications: constipationIndications:constipation Given 07/16/2022 8:06 AM SLUG PRESS OPERATOR 17 g Given 07/15/2022 8:37 AM SLUG PRESS OPERATOR 17 g scopolamine patch 72 hour 1 patch 1 patch, topical, Administer over 72 Hours, Every 72 hours, First dose on Tue07/16/22 at 0800, For 29 days Medication Applied 07/16/2022 8:05 AM SLUG PRESS OPERATOR 1 patch External Ear sodium chloride 0.9% bolus 500 mL 500 mL (11.7 mL/kg), intravenous, Once, On Tue07/15/22 at 0015, For 1 dose New Bag 07/14/2022 11:48 PM SLUG PRESS OPERATOR 500 mL sodium chloride 0.9% bolus 854 mL 854 mL (20 mL/kg ? 42.7 kg), intravenous, Once, On Tue07/14/22 at 1633, For 1 dose New Bag 07/14/2022 4:56 PM SLUG PRESS OPERATOR 854 mL documented in this encounter Historical [...] Recently Administered Medications Times are shown in SLUG PRESS OPERATOR. Scheduled Medication Order 07/15/2022 07/16/2022 07/17/2022 aluminum-magnesium [...] days 0805 (Medication Applied - Provider: Honey oM RN - Comment: right) 1300 (Due: Medication [...] COVID: Suspected 07/14/2022 07/14/2022 07/14/2022 5:58 PM SLUG PRESS OPERATOR documented as of this encounter Care Teams Pet Handler Relationship Specialty Start Date End Date Basim Lynn MD [address] [place] [id number] PCP - General Pediatrics 07/04/22 No, Physician 07/03/22 documented as of this encounter
--- OUTSIDE RECORDS SUMMARY | 2024-07-02 08:08 | XMS_ITS | Encounter Summary ---
Author Organization [facility] Address [address] [place] [address] Care Team Providers Care Electrical Tech/Project Manager Name Role Phone No, Physician Primary Care Provider [phone] No, Physician Primary Care Provider [phone] Rita Lynn MD Primary Care Provider [phone] No, Physician Unavailable Encounter Details Date Type Department Care Team (Late st Contact Info) Description 06/30/2022 Orders Only [facility] Cardiology [address] [place] [address] Jabier Adame MD [facility] [address] Social History Tobacco Use Types Packs/Day Years Used Date Smoking Tobacco: Never Alcohol Use Standard Drinks/Week Comments Never 0 (1 standard drink = 0.6 oz pur e alcohol) Comments No Sex and Gender Information Value Date Recorded Sex Assigned at Not on file Legal Sex Female 7:29 PM HUMAN RESOURCES TRAINER Gender Identity Not on file Sexual Orientation Not on file documented as of this encounter Plan of Treatment Not on file documented as of this encounter Procedures Procedure Name Priority Date/Time Associated Diagnosis Comments CARDIOLOGY DOCUMENT SCAN Routine 06/30/2022 documented in this encounter Results * Cardiology Document Scan (06/30/2022) Anatomical Region Laterality Modality Other Jabier Adame MD CV CARDIAC SERVICES [facility] DURES Final Result documented in this encounter Visit Diagnoses Not on filedocumented in this encounter Additional Health Concerns Infection Onset Date Last Indicated Resolved Time COVID: Suspected 07/03/2022 07/03/2022 07/03/2022 11:07 AM HUMAN RESOURCES TRAINER documented as of this encounter Care Teams Electrical Tech/Project Manager Relationship Specialty Start Date End Date No, Physician PCP - General 02/17/22 07/02/22 No, Physician PCP - General 07/03/22 07/03/22 Rita Lynn MD [address] [place] [id number] PCP - General Pediatrics 07/04/22 No, Physician 07/03/22 documented as of this encounter
--- OUTSIDE RECORDS SUMMARY | 2024-07-02 08:08 | XMS_ITS | Encounter Summary ---
Author Organization [facility] Healthcare Address [address] [place] [address] Care Team Providers Care Senior Court Office Assistant Name Role Phone No, Physician Primary Care Provider [phone] Reason for Visit * Reason Comments Hand Pain Encounter Details Date Type Department Care Team (Late st Contact Info) Description 02/17/2022 4:01 PM CDT - 02/17/2022 6:27 PM CDT Emergency [address] [address] Denise Iverson MD [address] [place] [address] [address] [place], [place] [id number] Finger injury, right, initial encounter (Primary Dx) Discharge Disposition: Discharge to home or self care Social History Tobacco Use Types Packs/Day Years Used Date Smoking Tobacco: Never Assessed Tobacco Cessation:Counseling Given: Not Answered Comments Unknown Sex and Gender Information Value Date Recorded Sex Assigned at Not on file Legal Sex Female 7:29 PM TEST ENGINEERING 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 * R.I.C.E. Treatment (AfterCare(R) Instructions(ER/ED)) (Thai) * Finger Sprain (AfterCare(R) Instructions(ER/ED)) (Thai) documented in this encounter Discharge Disposition Disposition [...] Method Weight Weight Method 172.7 cm Stated 13287 g Standing scale Physical Exam Vitals and [...] is at baseline. Psychiatric: Behavior: Behavior normal. [facility] ED Course as of 02/17/222119 Time: 02/17 [...] D: ??02/17/2022 5:54 PM T: Report ID: [id number] Reading Location: ??[id number] Procedure Note Ish Fernandez MD - 02/17/2022 [...] Dejuan Fernandez M.D. NINA T: Report ID: [id number] Reading Location: [place] [address] us Denise Iverson MD IMG XR PROCEDURES [...] D: ??02/17/2022 5:52 PM T: Report ID: [id number] Reading Location: ??[id number] Procedure Note Ish Fernandez MD - 02/17/2022 [...] Dejuan Fernandez M.D. NINA T: Report ID: [id number] Reading Location: [place] [address] Denise Iverson MD IMG XR PROCEDURES Fi [...] documented in this encounter Care Teams Senior Court Office Assistant Relationship Specialty Start Date End Date No, Physician PCP - General 02/17/22 07/02/22 documented as of this encounter
--- OUTSIDE RECORDS SUMMARY | 2024-07-02 08:08 | XMS_ITS | Encounter Summary ---
Author Organization [facility] Healthcare Address [address] [place] [address] Care Team Providers Care Mapping Engineer Name Role Phone No, Physician Primary Care Provider [phone] Reason for Visit * Reason Comments Vomiting Abdominal Pain Encounter Details Date Type Department Care Team (Late st Contact Info) Description 06/18/2022 1:40 PM AMBULATORY CARE - 06/18/2022 7:17 PM AMBULATORY CARE Emergency [facility] Emergency Department [address] [place] [address] Evelyn Cheema MD [address] [place], [place] [id number] Lucius Pappas MD [address] [place] [address] Influenza A (Primary Dx); Dysmenorrhea Discharge Disposition: [...] on file Legal Sex Female 7:29 PM AMBULATORY CARE Gender Identity Not on file Sexual Orientation Not on file documented as of this encounter Last Filed Vital Signs Vital Sign Reading Time Taken Comments Blood Pressure 117/77 06/18/2022 7:15 PM AMBULATORY CARE Pulse 53 06/18/2022 7:15 PM AMBULATORY CARE Temperature 36.8 ??C (98.3 ??F) 06/18/2022 12:[address] Respiratory Rate 16 06/18/2022 7:15 PM AMBULATORY CARE Oxygen Saturation 97% 06/18/2022 7:15 PM AMBULATORY CARE Inhaled Oxygen Concentration - - Weight 46.3 kg (102 lb 1.2 oz) 06/18/2022 12:38 PM AMBULATORY CARE Height - - Body Mass Index - - documented in this encounter Discharge Instructions * Discharge Instructions* Lucius Pappas MD - 06/18/2022 6:40 PM AMBULATORY CARE - Take meotclopramide every 6 hours as needed for vomiting - you can also try zofran every 8 hours to help with nausea - Give tylenol and/or ibuprofen as needed for fever. You can alternate each every 3 hours - Continue to encourage drinking lots of fluids to prevent dehydration - Please call your licensed direct entry midwife or return to the emergency department if you develop trouble breathing, pee less than 3 times in a day, hav repeated vomiting not controlled with medicines, have fevers lasting LATORY CARE LATORY CARE documented in this encounter Medications at Time [...] Method -- -- 06/18/22 1238 06/18/22 1238 24898 g Standing scale Physical Exam Constitutional: Appearance: [...] GC/Chlamydia. By: Lucius Pappas MD Time: 06/18 3008 Comment: Patient vomited after zofran. Given 500ml [...] Pappas MD 06/18/221914 Evelyn Cheema MD 06/18/222029 LATORY CARE LATORY CARE * Denise Nolasco RN - 06/18/2022 12:33 [...] No pain medication taken. Emesis during triage. LATORY CARE documented in this encounter Plan of Treatment Not on file documented as of this encounter Procedures Procedure Name Priority Date/Time Associated Diagnosis Comments N. GONORRHOEAE/C. TRACHOMATIS AMPLIFICATION STAT 06/18/2022 4:57 PM AMBULATORY CARE URINALYSIS AND REFLEX TO MICROSCOPIC AND CULTURE STAT 06/18/2022 4:57 PM AMBULATORY CARE URINALYSIS, MICROSCOPIC ONLY STAT 06/18/2022 4:[address] ABDOMEN PELVIS W CONTRAST ED 06/18/2022 4:17 PM AMBULATORY CARE POCT HCG, URINE Routine 06/18/2022 3:26 PM AMBULATORY CARE DIFFERENTIAL AUTO STAT 06/18/2022 2:3 5 PM AMBULATORY CARE CBC WITH AUTO DIFFERENTIAL STAT 06/18/2022 2:35 PM AMBULATORY CARE LIPASE STAT 06/18/2022 2:35 PM AMBULATORY CARE COMPREHENSIVE METABOLIC PANEL STAT 06/18/2022 2:35 PM AMBULATORY CARE documented in this encounter Results * (ABNORMAL) Urinalysis, microscopic only (06/18/2022 4:57 PM AMBULATORY CARE) WBC, ur 0-5 0 - 5 /HPF DES Comment:Testing performed by : [address] [address] RBC, ur >50(A) 0 - 2 /HPF DES Comment:Testing performed by : [address] [address] Epithelial cells, squamous, ur 21-50(A) 0 - 5 /HPF DES Comment:Testing performed by : [address] [address] Culture Reflex Comment Reflex conditions for urine culture (WBC >10) not met. DES Comment:Testing performed by : [address], [place]., [address] Urine, clean voided 06/18/2022 4:57 PM AMBULATORY CARE 06/18/2022 5:11 PM AMBULATORY CARE Evelyn Cheema MD LAB URINE ORDERABLES F inal Result DES [address] [facility] Department [place] [address] * N. gonorrhoeae/C. trachomatis Amplification Urine (06/18/2022 4:57 PM AMBULATORY CARE) C. trachomatis Not Detected Not Detected DES Comment:Testing performed by : [address] [address] N. gonorrhoeae Not Detected Not Detected DES Comment: Interpretive Data Testing performed by the [facility]. This assay detects Chlamydia trachomatis and Neisseria gonorrhoeae by nucleic acid amplification testing (NAAT). This test is approved by the [facility] Food and Drug Administration and the performance characteristics have been verified by the laboratory. The performance characteristics of this test have not been evaluated in individuals less than 14 years of age. Current Interpretive Data was last revised on 2019. Testing performed by: [address] [address] Urine (None) 06/18/2022 4:57 PM AMBULATORY CARE 06/18/2022 5:11 PM AMBULATORY CARE Evelyn Cheema MD LAB MICROBIOLOGY - GEN ERAL ORDERABLES Final Result [facility] [address] [facility] Department [place] [address] * (ABNORMAL) Urinalysis reflex to microscopic and culture Urine, clean voided (06/18/2022 4:57 PM AMBULATORY CARE) Color, ur Yellow Yellow DES Comment:Testing performed by : [address] [address] Clarity, ur Clear Clear DES Comment:Testing performed by : [address] [address] Specific gravity, ur >1.030 1.003 - 1.030 DES Comment:Testing performed by : [address] [address] pH, urine 8.0 DES Comment:Testing performed by : [address] [address] Protein, ur ql 1+(A) Negative DES Comment:Testing performed by : [address] [address] Glucose, ur ql Negative Negative [facility] Comment:Testing performed by : [address] [address] Ketones, ur 1+(A) Negative DES Comment:Testing performed by : [address] [address] Bilirubin, ur Negative Negative DES Comment:Testing performed by : [address] [address] Blood, ur 2+(A) Negative DES Comment:Testing performed by : [facility], [address] [place] [address]., [address] Urobilinogen, ur <2.0 <2.0 mg/dL DES Comment:Testing performed by : [address] [address] Nitrite, ur Negative Negative DES Comment:Testing performed by : [address] [address] Leukocyte esterase, ur Negative Negative DES Comment:Testing performed by : [address] [address] UA reflex comment Reflex to microscopic UA will be performed. DES Comment:Testing performed by : [address] [address] Urine, clean voided 06/18/2022 4:57 PM AMBULATORY CARE 06/18/2022 5:11 PM AMBULATORY CARE Narrative DES - 06/18/2022 6:57 PM AMBULATORY CARE ?? Urine pH is affected by diet, medications, systemic acid-base disturbances, and renal tubular function. ??pH may affect urinary stone formation. ??For example, urine pH below 6.0 may help reduce the tendency for calcium phosphate stones and pH greater than 6.0 may reduce the tendency for uric acid stone formation. Source: [employer]. Last revised 06-30-2017 Evelyn Cheema MD LAB MICROBIOLOGY - GEN ERAL ORDERABLES Final Result Performing Organization Address City/State/[facility] Co de Phone Number DES [address] [facility] Department [place] [address] * CT Abdomen Pelvis W Contrast (06/18/2022 4:17 PM AMBULATORY CARE) Anatomical Region Laterality Modality Body N/A Computed Tomogra phy 06/18/2022 4:41 PM AMBULATORY CARE Narrative 06/18/2022 4:44 PM AMBULATORY CARE EXAM DESCRIPTION: ?? CT ABDOMEN PELVIS W [...] PM T: ??06/18/2022 4:44 PM Report ID: [id number] Reading Location: ??[id number] Procedure Note Wilber Terry MD - 06/18/2022 [...] Wilber Terry M.D. ML: ML Report ID: [id number] Reading Location: [id number] Evelyn Cheema MD IMG CT PROCEDURES Anjana l Result * POCT hCG, urine (06/18/2022 3:26 PM AMBULATORY CARE) HCG, ur, POC Negative Lot Number [id number] QC Backgroud Clear Acceptable QC Control Line Acceptable Urine 06/18/2022 3:26 PM AMBULATORY CARE Evelyn Cheema MD POINT OF CARE TEST ORD ERABLES Final Result * Differential, auto (06/18/2022 2:35 PM AMBULATORY CARE) Neutrophil abs 3.7 1.7 - 6.5 K/cumm DES Comment:Testing performed by : [address] [address] Imm gran abs 0.0 0.0 - 0.1 K/cumm DES Comment:Testing performed by : [address] [address] Lymphocyte abs 2.3 0.8 - 3.3 K/cumm DES Comment:Testing performed by : [address] [address] Monocyte abs 0.8 0.2 - 0.8 K/cumm DES Comment:Testing performed by : [address] [address] Eosinophil abs 0.0 0.0 - 0.5 K/cumm DES Comment:Testing performed by : [address] [address] Basophil abs 0.0 0.0 - 0.1 K/cumm DES Comment:Testing performed by : [address] [address] Neutrophil pct 54.0 % [facility] Comment: Interpretive Data Percent cell count reference ranges are not reported, since discordance with absolute values may lead to misinterpretation of CBC data. Current Interpretive Data was last revised on 2017. Testing performed by: [address] [address] Imm gran pct 0.3 % [facility] Comment: Interpretive Data Percent cell count reference ranges are not reported, since discordance with absolute values may lead to misinterpretation of CBC data. Current Interpretive Data was last revised on 2017. Testing performed by: [address] [address] Lymphocyte pct 33.3 % DES Comment: Interpretive Data Percent cell count reference ranges are not reported, since discordance with absolute values may lead to misinterpretation of CBC data. Current Interpretive Data was last revised on 2017. Testing performed by: [address] [address] Monocyte pct 11.8 % DES Comment: Interpretive Data Percent cell count reference ranges are not reported, since discordance with absolute values may lead to misinterpretation of CBC data. Current Interpretive Data was last revised on 2017. Testing performed by: [address] [address] Eosinophil pct 0.3 % DES Comment: Interpretive Data Percent cell count reference ranges are not reported, since discordance with absolute values may lead to misinterpretation of CBC data. Current Interpretive Data was last revised on 2017. Testing performed by: [address] [address] Basophil pct 0.3 % DES Comment: Interpretive Data Percent cell count reference ranges are not reported, since discordance with absolute values may lead to misinterpretation of CBC data. Current Interpretive Data was last revised on 2017. Testing performed by: [address] [address] Blood 06/18/2022 2:35 PM AMBULATORY CARE 06/18/2022 2:45 PM AMBULATORY CARE us Evelyn Cheema MD LAB BLOOD ORDERABLES F inal Result DES [address] [facility] Department of Laboratories [place], [place] [id number] * Lipase (06/18/2022 2:35 PM AMBULATORY CARE) Lipase 34 5 - 50 Units/L DES Comment:Testing performed by : [address] [address] Blood 06/18/2022 2:35 PM AMBULATORY CARE 06/18/2022 2:45 PM AMBULATORY CARE us Eveyln Cheema MD LAB BLOOD ORDERABLES F inal Result DES [address] [facility] Department [place] [address] * (ABNORMAL) Comprehensive metabolic panel (06/18/2022 2:35 PM AMBULATORY CARE) Sodium 135 135 - 145 mmol/L DES Comment:Testing performed by : [address] [address] Potassium, pl 3.1(L) 3.3 - 4.9 mmol/L DES Comment:Testing performed by : [address] [address] Chloride 100 100 - 114 mmol/L DES Comment:Testing performed by : [address] [address] CO2 28 20 - 30 mmol/L DES Comment:Testing performed by : [address] [address] Anion gap 7 2 - 15 mmol/L DES Comment:Testing performed by : [address] [address] BUN 9 9 - 18 mg/dL DES Comment:Testing performed by : [address] [address] Creatinine 0.70 0.40 - 1.00 mg/dL DES Comment:Testing performed by : [address] [address] Glucose 106 70 - 199 mg/dL DES [...] was last revised 2017. Testing performed by: [address] [address] Calcium 9.2 8.5 - 10.3 mg/dL DES Comment:Testing performed by : [address] [address] Bilirubin, total 0.8 0.1 - 1.2 mg/dL DES Comment:Testing performed by : [address] [address] Protein, pl 6.7 6.5 - 8.5 g/dL DES Comment:Testing performed by : [address], [address] Albumin 4.2 3.2 - 5.0 g/dL DES Comment:Testing performed by : [address] [address] Alk phos 50(L) 70 - 260 Units/L DES Comment:Testing performed by : [address] [address] ALT 14 7 - 45 Units/L DES Comment:Testing performed by : [address] [address] AST 33 10 - 50 Units/L DES Comment:Testing performed by : [address] [address] Blood 06/18/2022 2:35 PM AMBULATORY CARE 06/18/2022 2:45 PM AMBULATORY CARE us Evelyn Cheema MD LAB BLOOD ORDERABLES F inal Result [facility] [address] [facility] Department [place] [address] * (ABNORMAL) CBC with auto differential (06/18/2022 2:35 PM AMBULATORY CARE) [facility] WBC 6.8 3.8 - 9.9 K/cumm DES Comment:Testing performed by : [address] [address] Hgb 11.8(L) 11.9 - 15.5 g/dL DES Comment:Testing performed by : [address] [address] Hct 35.7 35.6 - 45.5 % DES Comment:Testing performed by : [address] [address] Plt 174 150 - 400 K/cumm DES Comment:Testing performed by : [address] [address] MPV 11.5 9.1 - 12.3 fL DES Comment:Testing performed by : [address], [address] RBC 4.27 3.90 - 5.20 M/cumm DES Comment:Testing performed by : [address] [address] MCV 83.6 81.3 - 96.4 fL DES Comment:Testing performed by : [address] [address] MCH 27.6 27.1 - 33.3 pg DES Comment:Testing performed by : [address], [address] MCHC 33.1 32.3 - 35.7 g/dL DES Comment:Testing performed by : [address] [address] RDW CV 13.5 11.1 - 14.9 % DES Comment:Testing performed by : [address] [address] RDW SD 40.9 35.7 - 48.1 fL DES Comment:Testing performed by : [address] [address] NRBC abs 0.00 0.00 - 0.01 K/cumm DES Comment:Testing performed by : [address] [address] Blood 06/18/2022 2:35 PM AMBULATORY CARE 06/18/2022 2:45 PM AMBULATORY CARE us Evelyn Blue Anette MD LAB BLOOD ORDERABLES F inal Result DES [address] [facility] Department [place] [address] documented in this encounter Visit [...] 1 dose Contrast Given 06/18/2022 4:12 PM AMBULATORY CARE 75 mL ketorolac (TORADOL) 30 mg/mL (1 mL) injection 15 mg 15 mg (0.324 mg/kg), intravenous, Once, On Tue06/18/22 at 1705, For 1 dose, For Adult IV push, administer over 15 seconds Given 06/18/2022 5:15 PM AMBULATORY CARE 15 mg metoclopramide (REGLAN) injection 10 mg 10 mg (0.216 mg/kg), intravenous, Administer over 1 Minutes, Once, On Tue06/18/22 at 1703, For 1 dose Given 06/18/2022 5:11 PM AMBULATORY CARE 10 mg ondansetron (ZOFRAN) injection 4 mg 4 mg (0.0864 mg/kg), intravenous, Administer over 2 Minutes, Once, On Tue06/18/22 at 1359, For 1 dose Given 06/18/2022 2:39 PM AMBULATORY CARE 4 mg Right Antecubital sodium chloride 0.9% bolus 1,000 mL 1,000 mL (21.6 mL/kg), intravenous, Once, On Tue06/18/22 at 1359, For 1 dose New Bag 06/18/2022 2:38 PM AMBULATORY CARE 1,000 mL Right Antecubital sodium chloride 0.9% bolus 500 mL 500 mL (10.8 mL/kg), intravenous, Once, On Tue06/18/22 at 1619, For 1 dose Restarted 06/18/2022 5:11 PM AMBULATORY CARE documented in this encounter Discontinued Medications Medication Sig Discontinue Reason Start Date End Da te metoclopramide (REGLAN) 10 mg tablet Take 1 tablet (10 mg total) by mouth every 6 (six) hours as needed (nausea, vomiting) Reorder 06/18/2022 06/18/2022 documented as of this encounter Active and Recently Administered Medications Times are shown in AMBULATORY CARE. Scheduled Medication Order 06/16/2022 06/17/2022 06/18/2022 ketorolac [...] 06/18/2022 documented in this encounter Care Teams Mapping Engineer Relationship Specialty Start Date End Date No, Physician PCP - General 02/17/22 07/02/22 documented as of this encounter
--- OUTSIDE RECORDS SUMMARY | 2024-07-02 08:08 | XMS_ITS | Encounter Summary ---
Author Organization [facility] Healthcare Address [address] [place] [address] Care Team Providers Care Open Hearth Door Liner Name Role Phone Rita Lynn MD Primary Care Provider [phone] No, Physician Unavailable Reason for Visit * Reason Comments Chest Pain * Auth/Cert Specialty Diagnoses / Procedures Referred By Contac t Referred To Contact Diagnoses Chest pain, unspecified type Severely underweight adult Procedures N/A Referral ID Status Reason Start Date Expiration Date Visits Re quested Visits Authorized [id number] 1 1 Encounter Details Date Type Department Care Team (Latest Contact Info) Description 07/07/2022 4:15 PM ASPHALT PLANT OPERATOR - 07/07/2022 4:50 PM ASPHALT PLANT OPERATOR Surgery [facility] [address] [place] [address] Brittnee Babb MD [address] [facility] [address] [place] [address] ESOPHAGOGASTRODUODENOSCOPY BIOPSY Surgery Details Date/Time Status Location OR Service Patient Class Case Class Case Type Trauma Case? 07/07/2022 4:15 PM Posted [facility] END[facility] EUS 09 Gastroenterology Inpatient Urgent - [...] on file Legal Sex Female 7:29 PM ASPHALT PLANT OPERATOR Gender Identity Not on file Sexual Orientation Not on file documented as of this encounter Last Filed Vital Signs Vital Sign Reading Time Taken Comments Blood Pressure 133/93 07/07/2022 1:14 PM ASPHALT PLANT OPERATOR Pulse 127 07/07/2022 1:14 PM ASPHALT PLANT OPERATOR Temperature 36.7 ??C (98.1 ??F) 07/07/2022 1:14 PM CS T Respiratory Rate 18 07/07/2022 1:14 PM ASPHALT PLANT OPERATOR Oxygen Saturation 99% 07/07/2022 1:14 PM ASPHALT PLANT OPERATOR Inhaled Oxygen Concentration - - Weight 40.1 kg (88 lb 8 oz) 07/04/2022 4:[address] Height 172.7 cm (5' 8 ) 07/03/2022 7:45 PM ASPHALT PLANT OPERATOR Body Mass Index 13.49 07/03/2022 7:45 PM ASPHALT PLANT OPERATOR Body Mass Index Percentile 0.00% 07/10/2022 3:1 2 AM ASPHALT PLANT OPERATOR Growth Chart: CDC (Girls, 2- 20 Years) documented in this encounter Discharge Summaries * Gita Duarte MD - 07/13/2022 1:03 PM CST Inpatient Discharge Summary BRIEF OVERVIEW Admitting Provider: Yayo Patterson MD Discharge Provider: No att. providers found Primary Care Physician at Discharge: Rita Lynn MD [phone] Admission Date: 07/03/2022 Discharge Date: 07/13/2022 Admission Location: [facility] Problems/Diagnoses: Principal Problem: Nausea & vomiting Active [...] hematochezia, urinary symptoms. She originally presented to [facility], though left AMA on 07/01 due to perceived poor care - subsequently presenting to [facility] on the same day with unremarkable labs/workup. [...] MD Specialty: Pediatrics Relationship: PCP - General [facility] [address] [address] Next Steps: Follow up ALT PLANT OPERATOR documented in this encounter Discharge Instructions * Discharge Instructions* Gita Duarte MD - 07/13/2022 12:33 PM ASPHALT PLANT OPERATOR Take zofran (ondansetron) 30 minutes before each meal to help prevent nausea. You will also be prescribed a scopolamine patch which you will need to switch out every 3 days. Take miralax once a day for your constipation. ALT PLANT OPERATOR ALT PLANT OPERATOR * Discharge Instr - Other Orders* Shelby Griggs RN - 07/09/2022 4:29 PM ASPHALT PLANT OPERATOR This is the earliest available follow up appointment with your PCP. Please bring this discharge paperwork, a list of home medications, your insurance card and photo ID to your appointment. Please arrive 15 minutes prior to your appointment and make sure you wear a mask. If you are unable to keep this appointment, it is very important you call to reschedule. ALT PLANT OPERATOR * Attachments The following attachments cannot be sent through Care Everywhere. * Cyclic Vomiting Syndrome in Children (Patient Financial Services Specialist) (Haitian) documented in this encounter Medications at Time [...] Age: 17 y.o. female Admit: 07/03/2022 Bed: [place] [address]/[id number] Subjective Interval History: Reports no n/v over [...] BUE & BLE strength. Intact FNF & uxxi-sg-amgo, normal gait Psych: Appropriate mood/affect. No SI/HI. [...] it only happens after vomiting or gagging. ALT PLANT OPERATOR * Vida Stevens RN - 07/13/2022 12:51 [...] No additional needs noted at this time. ALT PLANT OPERATOR * Vida Stevens RN - 07/13/2022 12:47 PM CST 07/05/22 1125 Communications Important Message from Medicare notice given to patient? Not Applicable AYALA letter given? Not Applicable Patient choice (Home Health/Hospice) list given to patient/site safety representative? Not Applicable Detention Facility list given to patient/site safety representative? Not Applicable Fiduciary Responsibility Patient/Designated decision maker was informed of [facility] fiduciary relationship as necessary ALT PLANT OPERATOR * Grover Spaulding MD - 07/12/2022 1:50 PM CST Daily Progress Note Division of Hospital Medicine Name: Isabel Churchill Today: July 12, 2022 : 2005 Age: 17 y.o. female Admit: 07/03/2022 Bed: [id number] Subjective Interval History: - tolerating tube feeds [...] and keeps food down. Grover Spaulding MD ALT PLANT OPERATOR * Grover Spaulding MD - 07/11/2022 10:31 AM CST Daily Progress Note Division of Hospital Medicine Name: Isabel Churchill Today: July 11, 2022 : 2005 Age: 17 y.o. female Admit: 07/03/2022 Bed: [id number] Subjective Interval History: - still having episodes [...] evaluation of eating disorder Grover Spaulding MD ALT PLANT OPERATOR ALT PLANT OPERATOR * Grover Spaulding MD - 07/10/2022 9:49 AM CST Daily Progress Note Division of Hospital Medicine Name: Isabel Churchill Today: July 10, 2022 : 2005 Age: 17 y.o. female Admit: 07/03/2022 Bed: [id number] Subjective Interval History: - patient is feeling [...] and esophagus are unremakable Grover Spaulding MD ALT PLANT OPERATOR * Grover Spaulding MD - 07/09/2022 3:33 PM CST Daily Progress Note Division of Hospital Medicine Name: Isabel Churchill Today: July 09, 2022 : 2005 Age: 17 y.o. female Admit: 07/03/2022 Bed: [id number] Subjective Interval History: - episode of left [...] and esophagus are unremakable Grover Spaulding MD ALT PLANT OPERATOR * Angelica Barnes RN - 07/09/2022 11:58 AM CST Ms. Churchill had kinyarwanda toast for breakfast with no complaint of [...] signs of distress. Will continue to monitor ALT PLANT OPERATOR * Grover Spaulding MD - 07/08/2022 4:39 PM CST Daily Progress Note Division of Hospital Medicine Name: Isabel Churchill Today: July 08, 2022 : 2005 Age: 17 y.o. female Admit: 07/03/2022 Bed: [id number] Subjective Interval History: - pathology from esophagus, [...] Extended EEG Report Patient Name: Isabel Churchill [facility] Medical Record Number (MRN): [id number] [facility] Record: No Soarian MRN Date [...] 32 channel EEG recording acquired on a [employer] EEG-1200 acquisition system. Scalp electrodes were placed [...] and esophagus are unremakable Grover Spaulding MD ALT PLANT OPERATOR * Amparo Carmen, PT - 07/08/2022 3:44 [...] home Prior Function Prior Function Level of Perry: Independent functional transfers, Independent with ambulation Lives [...] Physical Therapy) Active Problems Not on file ALT PLANT OPERATOR * Kelly Fam OT - 07/08/2022 3:40 [...] notified. OT Missed Visit Reason Patient declined ALT PLANT OPERATOR * Grover Spaulding MD - 07/07/2022 4:03 PM CST Daily Progress Note Division of Hospital Medicine Name: Isabel Churchill Today: July 07, 2022 : 2005 Age: 17 y.o. female Admit: 07/03/2022 Bed: [id number] Subjective Interval History: -EGD was done today [...] Extended EEG Report Patient Name: Isabel Churchill [facility] Medical Record Number (MRN): [id number] [facility] Record: No Soarian MRN Date [...] 32 channel EEG recording acquired on a [employer] EEG-1200 acquisition system. Scalp electrodes were placed [...] & Plan Hold supplementation Severe malnutrition (CMS/HCC) ([facility]) Assessment & Plan Patient with chronically low [...] from stomach and esophagus. Grover Spaulding MD ALT PLANT OPERATOR * Anna Feliciano, RD - 07/07/2022 2:10 [...] hematochezia, urinary symptoms. She originally presented to [facility], though left AMA on 07/01 due to perceived poor care - subsequently presenting to [facility] on the same day with unremarkable labs/workup. [...] Diet Clear Liquid Diet effective now Question: ([facility]) Diet type Answer: Clear Liquid 07/07/22 [...] Weight changes, Electrolyte changes Anna Feliciano RD [phone] ALT PLANT OPERATOR * Jamal Claros - 07/07/2022 11:40 AM CST Spiritual Care Note Scrap Bunch Maker Jamal Claros D.Min., [facility] 07/07/2022 1140 hrs 07/07/22 1130 Time Spent Start Time 1130 Stop Time 1140 Time Calculation (min) 10 min Patient Spiritual Assessment Spirituality Assessed Focus of Care Clinical Encounter Type Visited With Family;Patient not available (Pt at testing) Response Type Routine visit Routine Visit Introduction Reason for visit Support Referral From Nurse Referral To Scrap Bunch Maker Outcomes and Progress Demonstrating care and respect Achieved Interventions Interventions Offer emotional support Plan Future Plan Scrap Bunch Maker will make a follow-up visit. ALT PLANT OPERATOR * Kati Hazel, PT - 07/07/2022 11:00 AM CST Physical Therapy 07/07/22 1100 General PT Missed Visit Reason Procedure/testing/appointment;Unavailable Other Comments Other PT Comments In AM Pt. declined; awaiting endoscopy- asked PT to return later. PM pt. showering. Per RN pt. is mobilizing independently in room ALT PLANT OPERATOR * Grover Spaulding MD - 07/06/2022 4:11 PM CST Daily Progress Note Division of Hospital Medicine Name: Isabel Churchill Today: July 07, 2022 : 2005 Age: 17 y.o. female Admit: 07/03/2022 Bed: [place] [address]/[id number] Subjective Interval History: - persistent episodes of [...] Extended EEG Report Patient Name: Isabel Churchill [facility] Medical Record Number (MRN): [id number] [facility] Record: No [place] MRN Date of (): [...] 32 channel EEG recording acquired on a [employer] EEG-1200 acquisition system. Scalp electrodes were placed [...] & Plan Hold supplementation Severe malnutrition (CMS/HCC) ([facility]) Assessment & Plan Patient with chronically low [...] from stomach and esophagus. Grover Spaulding MD ALT PLANT OPERATOR * Amparo Carmen, PT - 07/05/2022 3:36 PM CST Physical Therapy Cancel 07/05/22 9026 General PT Missed Visit Reason Patient declined (pt declined, not giving a real reason as to why; denies nausea; states she is walking around her room with her grandmother) ALT PLANT OPERATOR * Rosmery Esqueda DIRECTOR OF WORKFORCE DEVELOPMENT - 07/05/2022 11:25 AM CST CM Initial [...] discharge) (07/05/22 1125) Health Insurance Coverage: Managed medicaid-[employer] Prescription Coverage: yes [facility] Primary Care Provider: verified with patient Rita Lynn MD Prior to Admission: Primary Caregiver: Self Who does the patient or legal guardian want to receive education instruction and discharge plans for after care assistance?: Name Caregiver Name: Tony Churchill Relationship to patient: mother Support System: Family members Support system contact info (name, phone, availablity): Zee Keys (grandmother) [phone] Home Care Services: No Durable Medical Equipment: [...] Collaboration with patient, MD, direct care nurse, Director Of Estate, and other members of the health care team to assure needed interventions completed. 2. Return patient to optimal level of self-care post discharge. 3. Manager Gift will follow for Discharge Planning - interventions [...] with the aftercare plan. Rosmery Esqueda Float Manager Gift [phone] For emergency needs after 4:30 pm, please call the carrier loader [phone]. For weekend/holiday needs from 8:00a.m. - 4:30p.m., please call the Weekend Manager Gift . ALT PLANT OPERATOR * Shanique Bazan MD - 07/05/2022 10:25 AM CST Daily Progress Note Division of Hospital Medicine Name: Isabel Churchill Today: July 05, 2022 : 2005 Age: 17 y.o. female Admit: 07/03/2022 Bed: [id number] Subjective Chief complaint: nausea Interval History: persistent [...] x8w and repeat level Severe malnutrition (CMS/HCC) ([facility]) Assessment & Plan Patient with chronically low [...] - Trial lidocaine patch, tylenol - PT/OT ALT PLANT OPERATOR * Shanique Bazan MD - 07/04/2022 11:53 AM CST Daily Progress Note Division of Hospital Medicine Name: Isabel Churchill Today: July 04, 2022 : 2005 Age: 17 y.o. female Admit: 07/03/2022 Bed: [id number] Subjective Chief complaint: vomiting, muscle twitching/spasm Interval [...] - Trial lidocaine patch, tylenol - PT/OT ALT PLANT OPERATOR documented in this encounter H&P Notes * Asad Marquis MD - 07/03/2022 8:50 PM CST History and Physical Division of [facility] Medicine Name: Isabel Churchill Today: July 03, [...] hematochezia, urinary symptoms. She originally presented to [facility], though left AMA on 07/01 due to perceived poor care - subsequently presenting to [facility] on the same day with unremarkable labs/workup. [...] have reviewed and summarized prior records in [employer], [employer], and [facility] Everywhere. History reviewed. No pertinent past medical [...] tylenol - PT/OT Asad Marquis MD Hospitalist ALT PLANT OPERATOR documented in this encounter Procedure Notes * Brittnee Babb MD - 07/07/2022 11:25 AM CSTAssociated Order(s): EGD GI ENDOSCOPY [facility] Patient Name: Isabel Churchill Procedure Date: 07/07/2022 11:25 AM Date of : 2005 Admit Type: Inpatient Age: 17 Gender: Female Attending MD: Brittnee Babb M.D. Room: [facility] END[facility]COPY ROOM 9 Note Status: Finalized Procedure: [...] anesthesia care under the supervision of a HIDE MILL WORKER was determined to be medically necessary for [...] the days following this procedure please call [phone]. After hours and evenings please call [phone] and speak to the GI fellow rest room matron. Please tell the fellow that Dr. Babbdid [...] On: 07/07/2022 11:25 AM Recognized by the [employer] for promoting quality in endoscopy ALT PLANT OPERATOR documented in this encounter Consult Notes * [...] her mother, Miguel Churchill, was contacted at [phone] with the patient'sverbal permission - review of the EMR, including the 2nd [facility] chart under - PDMP website- no results [...] she is tolerating TF. 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 Hobbies: planning to run track this [...] cause recurrent GI symptoms. 3. Continued weight advent is per the primary team. No specific eating disorder treatment is indicated at this time. Thank you for this consultation. Psychiatry will sign off now. For questions or concerns during business hours, please contact the Psych Consults B provider signed in to [employer]. For urgent issues afterhours, please call the psych consult pager. Belkis Bojorquez, JUDAH, PMHNP-BC Cosigned by Farooq Elizalde MD at 07/13/2022 1:41 PM ASPHALT PLANT OPERATOR ALT PLANT OPERATOR ALT PLANT OPERATOR * Gretta Bowers MD - 07/12/2022 11:41 [...] Keara Wild MD at 07/12/2022 5:10 PM ASPHALT PLANT OPERATOR ALT PLANT OPERATOR ALT PLANT OPERATOR Associated attestation - Keara Wild MD - 07/12/2022 5:10 PM ASPHALT PLANT OPERATOR I have seen and examined the [...] hematochezia, urinary symptoms. She originally presented to [facility], though left AMA on 07/01 due to perceived poor care - subsequently presenting to [facility] on the same day with unremarkable labs/workup. [...] Adult Diet Regular Diet effective now Question: ([facility]) Diet type Answer: Regular 07/09/22 0833 [...] changes, Electrolyte changes Rosmery Fuentes, MS RDN, [facility], ALT PLANT OPERATOR * Anna Feliciano, REEMA - 07/05/2022 2:52 [...] hematochezia, urinary symptoms. She originally presented to [facility], though left AMA on 07/01 due to perceived poor care - subsequently presenting to [facility] on the same day with unremarkable labs/workup. [...] Soft Diet effective now Question Answer Comment ([facility]) Diet type Restricted Modified Consistency: Mechanical [...] prior to 3 weeks ago. Pt enjoys [employer]. Last BM 3 days ago. Labs: BMP, [...] Weight changes, Electrolyte changes Anna Feliciano RD [phone] ALT PLANT OPERATOR * Lucius Nguyen MD - 07/05/2022 10:28 [...] marijuana daily. The patient originally presented to [facility] but left AMA on 07/01 due to perceived poor care, subsequently presented to [facility] in same-day with unremarkable labs and workup. [...] note, the patient presented in 02/26/2021 to [facility] Emergency Department with intermittent epigastric abdominal pain [...] Rad Talley MD at 07/06/2022 12:22 AM ASPHALT PLANT OPERATOR ALT PLANT OPERATOR ALT PLANT OPERATOR Associated attestation - Rad Talley MD - 07/06/2022 12:22 AM ASPHALT PLANT OPERATOR I have seen and examined the [...] ramelteon, 8 mg, 8 mg at 07/03/22 7769 REVIEW OF SYSTEMS A complete review of [...] the interim, please contact neurology consults at [phone] (senior) and specify that this consult was staffed with Consult Team B. Ayla Iverson MD PGY-1 Addendum: On rounds, patient noted to have increased tone in LUE and LLE. Also complaining of intermittently blurred vision. Would additionally recommend Brain MRI WWO to evaluate these visual issues. Cosigned by Zain Schwab MD at 07/04/2022 10:31 PM ASPHALT PLANT OPERATOR ALT PLANT OPERATOR ALT PLANT OPERATOR ALT PLANT OPERATOR Associated attestation - Zain Schwab MD - 07/04/2022 10:31 PM ASPHALT PLANT OPERATOR Attending Documentation: I have seen and examined [...] on to day team) Notification Time 0634 ALT PLANT OPERATOR * Filomena Orozco RN - 07/07/2022 2:00 PM CST Pt refused post procedure VS intervals. ALT PLANT OPERATOR * Bridgette Santiago RN - 07/06/2022 11:23 PM CST 07/06/222328 Notification Reason for Communication Status update (No relief with Zofran. Plan to give Ativan) Name of Person Notified Hospitalist Role of Person Notified Resident Method of Communication Call Response No new orders Notification Time 2328 ALT PLANT OPERATOR * Bridgette Santiago RN - 07/06/2022 10:15 [...] and a 2nd dose Zofran was given. ALT PLANT OPERATOR ALT PLANT OPERATOR * Bridgette Santiago RN - 07/06/2022 8:00 PM CST 07/06/221999 Notification Reason for Communication Status update (patient c/o itchiness at iv insertion site.To add itching as indication for benadryl) Name of Person Notified Hospitalist Role of Person Notified Resident Method of Communication Call Response See orders Notification Time 1999 ALT PLANT OPERATOR documented in this encounter ED Notes [...] intermittent symptoms, has reportedly been seen at [facility], [facility], [facility] and worked up and discharged forthese concerns. [...] review is significant for AMA discharge from [facility] a few days ago secondary to perceived poor care. Has had intermittent fevers, chills. Denies diarrhea and dysuria. Denies weight loss but review of records also significant for about 12lbs of weight loss over last few months. She does not take vjtx-vvt-fsoopaf control, no prior intra-abdominal surgeries. Denies drug use alcohol and tobacco. No known allergies. Family history significant for multiple members with hypertension diabetes. Mom with ovarian cancer. Maternal grandfather with prostate cancer. Maternal grandmother with TN at age 89. No sudden cardiac . Per chart review: 05/01/2023 from [facility] ED: Chief Complaint : Vomiting and Abdominal Pain HPI : Isabel Churchill is a 17-year-old female who presents for evaluation of worsening abdominal pain with nausea vomiting over the past 3 weeks. Patient did leave AMA from [facility] today as shewas concerned with [...] at multiple emergency rooms and admitted to [facility] with recent AMA discharge. Differential at this [...] unusual for an 17 yo to have ACS/TN, though is possible. Also consider biliary colic, pancreatitis, colitis, inflammatory bowel disease. Will check labs, get CT abdomen/pelvis, hydrate, assess for metabolic abnormality due to poor PO intake, check HCG to r/o . By: Yayo Patterson MD Time: 07/03 0993 Comment: Reviewed records from 06/18 at [facility], weight was listed as 46 kg at that time, now down to 40 kg. She tested + for fluA at that time. By: Yayo Patterson MD Time: 07/03 2183 Comment: CT IMPRESSION: No CT correlate for acute abdominal pain. By: Jorge Degroot MD Chest pain, unspecified type Severely underweight adult Jorge Degroot MD Resident 07/03/221958 Cosigned by Yayo Patterson MD at 07/11/2022 3:03 PM ASPHALT PLANT OPERATOR ALT PLANT OPERATOR ALT PLANT OPERATOR Associated attestation - Yayo Patterson MD - 07/11/2022 3:03 PM ASPHALT PLANT OPERATOR I have seen and examined the patient on 07/03/2022. I agree with the findings and plan of care as documented in the resident's note. * Mirta Barnett RN - 07/03/2022 8:28 AM CST Bed: ED1-10 Expected date: Expected time: Means of arrival: Comments: Nandini Churchill Arlene Elizabeth, RN 07/03/22 0828 ALT PLANT OPERATOR * Mirta Barnett RN - 07/03/2022 8:06 AM CST Pt comes with c/o chest pain that started 3 weeks ago and has gotten worse today. Pt also endorsingjaw pain that started today. Pt tearful in triage stating that she has been seen at multiple hospitals. Pt states nothing makes the chest pain better or worse ALT PLANT OPERATOR documented in this encounter Miscellaneous Notes [...] please call the GI Fellow General Call [facility] phone number available on [employer]. Ifthe patient has been discharged, please call the gastroenterology appointments line at [phone] for questions regarding clinic/procedures follow up. Heriberto Virgen MD Gastroenterology Fellow Cosigned by Keara Wild MD at 07/14/2022 8:23 AM ASPHALT PLANT OPERATOR ALT PLANT OPERATOR ALT PLANT OPERATOR * Subjective & Objective - Gita Duarte MD - 07/13/2022 1:03 PM CST Daily Progress Note Division of Hospital Medicine Name: Isabel Churchill Today: July 13, 2022 : 2005 Age: 17 y.o. female Admit: 07/03/2022 Bed: [id number] Subjective Interval History: Reports no n/v over [...] BUE & BLE strength. Intact FNF & virj-uw-kews, normal gait Psych: Appropriate mood/affect. No SI/HI. [...] this written report and agrees with it. ALT PLANT OPERATOR * Plan of Care - Rebecca Avila RN - 07/12/2022 5:43 PM CST Goals: Clinical Goals for the Shift: ASSESS, VITALS,MEDS Summary: Problem: Nutritional: Goal: Dietary intake will improve Outcome: Progressing Goal: Ability to maintain a balanced intake and output will improve Outcome: Progressing ALT PLANT OPERATOR * Plan of Care - Angelica Barnes RN - 07/11/2022 4:12 PM CST Goals: Clinical Goals for the Shift: monitor pain and nausea Summary: Problem: Nutritional: Goal: Dietary intake will improve Outcome: Progressing Goal: Ability to maintain a balanced intake and output will improve Outcome: Progressing ALT PLANT OPERATOR * Plan of Care - Alyssa Khan RN - 07/11/2022 4:09 PM CST Weekend CM Note: Per medical team, Pt is not medically ready for discharge today. Please call covering weekend CM for any needs. ALT PLANT OPERATOR * Plan of Aren - Angelica Barnes [...] 1004 by Angelica Barnes RN Outcome: Progressing ALT PLANT OPERATOR * Plan of Care - Angelica Barnes [...] of discharge needs will improve Outcome: Progressing ALT PLANT OPERATOR * Plan of Care - Shelby Griggs [...] assistance, please check the treatment team in [facility] for the assigned wrapper caser or contact the weekend Case Management phone, ALT PLANT OPERATOR * Medical Student - Mary Kate Hillman - 07/09/2022 11:53 AM CST Daily Progress Note Division of Hospital Medicine Name: Isabel Churchill Today: July 09, 2022 : 2005 Age: 17 y.o. female Admit: 07/03/2022 Bed: [id number] Subjective Chief complaint: nausea Interval History: Pt [...] Extended EEG Report Patient Name: Isabel Churchill [facility] Medical Record Number (MRN): [id number] [facility] Record: No Soarian MRN Date [...] 32 channel EEG recording acquired on a [employer] EEG-1200 acquisition system. Scalp electrodes were placed [...] regarding a trial of topical capsaicin (PMID: [id number]) Acute dystonic reaction due to drugs Assessment [...] Grover Spaulding MD at 07/09/2022 4:56 PM ASPHALT PLANT OPERATOR ALT PLANT OPERATOR ALT PLANT OPERATOR * Plan of Care - Angelica Barnes [...] of discharge needs will improve Outcome: Progressing ALT PLANT OPERATOR * Plan of Care - Marianne Frost [...] grandmother deny further concerns/questions at this time. ALT PLANT OPERATOR * Plan of Care - Filomena Orozco [...] of discharge needs will improve Outcome: Progressing ALT PLANT OPERATOR * Consults, Subsequent - Gretta Bowers MD - 07/08/2022 1:46 PM ASPHALT PLANT OPERATOR Brief GI Update 17 y/o F no [...] N/V Gretta Bowers MD PhD Gastroenterology Fellow ALT PLANT OPERATOR * Plan of Care - Shelby Griggs [...] retains patient within the continuum of care Manager Gift will continue to follow and assist with discharge planning as needed DANI Dela Cruz, fisher For case management needs from 4:31 PM - 7:59 AM, please call the carrier loader at telephone number: [phone] For weekend/holiday needs from the hours of 8:00 AM to 4:30 PM, please call the weekend wrapper caser at telephone number: [phone] ALT PLANT OPERATOR * Medical Student - Mary Kate Hillman - 07/08/2022 1:08 PM CST Daily Progress Note Division of Hospital Medicine Name: Isabel Churchill Today: July 08, 2022 : 2005 Age: 17 y.o. female Admit: 07/03/2022 Bed: [id number] Subjective Chief complaint: nausea Interval History: No [...] Extended EEG Report Patient Name: Isabel Churchill [facility] Medical Record Number (MRN): [id number] [facility] Record: No Soarian MRN Date [...] 32 channel EEG recording acquired on a [employer] EEG-1200 acquisition system. Scalp electrodes were placed [...] regarding a trial of topical capsaicin (PMID: [id number]) Acute dystonic reaction due to drugs Assessment [...] Grover Spaulding MD at 07/09/2022 4:56 PM ASPHALT PLANT OPERATOR ALT PLANT OPERATOR ALT PLANT OPERATOR ALT PLANT OPERATOR * Provider Query - Grover Spaulding MD - 07/08/2022 1:03 PM ASPHALT PLANT OPERATOR Clinical Indicators/Treatments: Patient presented with multiple complaints [...] Clinically unable to determine Additional Provider Response: [place] [employer]renteral [employer] Enteral [employer] Cachexia [...] March 2021; pp [phone]; 2020 [facility] for Parenteral and Enteral Nutrition. Use of terms such as likely, suspected, possible, or probable (associated with a specific diagnosisthat is being evaluated, monitored, or treated as if it exists) are acceptable and can be coded in the inpatient setting when documented at the time of discharge. This documentation will become part of the patient???s medical record. ALT PLANT OPERATOR * Plan of Care - Filomena Orozco [...] discharge needs will improve Outcome: Not Progressing ALT PLANT OPERATOR * Assessment & Plan Note - Gita [...] finding. - May consider ophtho referral outpatient ALT PLANT OPERATOR ALT PLANT OPERATOR ALT PLANT OPERATOR ALT PLANT OPERATOR ALT PLANT OPERATOR * Assessment & Plan Note - Gita [...] Will plan to remove NG tube today. ALT PLANT OPERATOR ALT PLANT OPERATOR ALT PLANT OPERATOR ALT PLANT OPERATOR * Assessment & Plan Note - Gita [...] with anti- emetics, patient agreeable with plan. ALT PLANT OPERATOR ALT PLANT OPERATOR ALT PLANT OPERATOR ALT PLANT OPERATOR ALT PLANT OPERATOR ALT PLANT OPERATOR ALT PLANT OPERATOR * Assessment & Plan Note - Grover Spaulding MD - 07/07/2022 4:09 PM ASPHALT PLANT OPERATOR Associated Problem(s): High serum vitamin B12 Hold supplementation ALT PLANT OPERATOR * Assessment & Plan Note - Grover Spaulding MD - 07/07/2022 4:09 PM ASPHALT PLANT OPERATOR Associated Problem(s): Chest pain, unspecified type (Resolved 07/14/2022) Likely musculoskeletal in since it only happens after vomiting or gagging. ALT PLANT OPERATOR ALT PLANT OPERATOR * Assessment & Plan Note - Grover Spaulding MD - 07/07/2022 4:08 PM ASPHALT PLANT OPERATOR Associated Problem(s): Acute dystonic reaction due to [...] IV Benadryl prn dystonia - symptoms resolved ALT PLANT OPERATOR * Plan of Care - Shelby Griggs [...] with family support and medical follow up Manager Gift will continue to follow patient to establish a safe and comprehensive discharge plan DANI eDla Cruz, fisher For case management needs from 4:31 PM - 7:59 AM, please call the carrier loader at telephone number: [phone] For weekend/holiday needs from the hours of 8:00 AM to 4:30 PM, please call the weekend wrapper caser at telephone number: [phone] ALT PLANT OPERATOR * Plan of Care - Yessica Tineo LCSW - 07/07/2022 2:05 PM CST SW met with pt at bedside to discuss mental health resources. Pt minimally engaged in conversation but agreeable to receiving printed counseling resources. SW left resource packet on pt's tray table per pt request. SW remains available if additional psychosocial needs are indicated prior to d/c. CARYL Orozco, ZAFAR See [facility] care team for contact information. ALT PLANT OPERATOR * Medical Student - Mary Kate Hillman - 07/07/2022 9:20 AM CST Daily Progress Note Division of Hospital Medicine Name: Isabel Churchill Today: July 07, 2022 : 2005 Age: 17 y.o. female Admit: 07/03/2022 Bed: [place] [id number] Subjective Chief complaint: nausea Interval History: Last [...] Extended EEG Report Patient Name: Isabel Churchill [facility] Medical Record Number (MRN): [id number] [facility] Record: No Soarian MRN Date [...] 32 channel EEG recording acquired on a [employer] EEG-1200 acquisition system. Scalp electrodes were placed [...] Grover Spaulding MD at 07/09/2022 4:55 PM ASPHALT PLANT OPERATOR ALT PLANT OPERATOR ALT PLANT OPERATOR * Plan of Care - Norman Torre [...] of discharge needs will improve Outcome: Progressing ALT PLANT OPERATOR * Plan of Care - Shelby Griggs [...] family agree with the plan for discharge. Manager Gift will continue to follow and assist with discharge planning as needed. If any further discharge needs arise, please contact the covering wrapper caser. DANI Dela Cruz, fisher For case management needs from 4:31 PM - 7:59 AM, please call the carrier loader at telephone number: [phone] For weekend/holiday needs from the hours of 8:00 AM to 4:30 PM, please call the weekend wrapper caser at telephone number: [phone] ALT PLANT OPERATOR * Plan of Care - Alfredo Martins [...] Pt in bed resting. Hs meds given. ALT PLANT OPERATOR * Consults, Subsequent - Maria Del Carmen Little MD - 07/05/2022 3:24 PM ASPHALT PLANT OPERATOR Neurology Consult Follow-Up Note Requesting Provider: Shanique [...] Please call the neurology consult phone at [phone] (senior) with questions A referral has been placed for follow-up with Neurology at the [facility]. Please provide their number in the discharge instructions: [phone] The Neurology Consult Service will sign off at this time. Please call the Neurology Consult Senior phone ([phone]) with questions, and specify that this consult [...] Extended EEG Report Patient Name: Isabel Churchill [facility] Medical Record Number (MRN): [id number] [facility] Record: No [place] MRN Date [...] 32 channel EEG recording acquired on a [employer] EEG-1200 acquisition system. Scalp electrodes were placed [...] Plan at the top of the note. ALT PLANT OPERATOR * Plan of Aren - Angelica Barnes [...] of discharge needs will improve Outcome: Progressing ALT PLANT OPERATOR * Assessment & Plan Note - Shanique Bazan MD - 07/05/2022 10:25 AM ASPHALT PLANT OPERATOR Associated Problem(s): Severe malnutrition (CMS/HCC) (HCC) Patient with chronically low BMI per chart review with current BMI 14 and reported 10 lb weight loss recently related to vomiting and poor po intake - RD consult - ADAT, Ensure TIDAC - Calorie Count ALT PLANT OPERATOR * Assessment & Plan Note - Shanique Bazan MD - 07/05/2022 10:25 AM ASPHALT PLANT OPERATOR Associated Problem(s): Vitamin D deficiency 25 vit D on admission - started 50,000 units ergocalciferol qweek, plan x8w and repeat level ALT PLANT OPERATOR * Assessment & Plan Note - Shanique Bazan MD - 07/05/2022 10:25 AM ASPHALT PLANT OPERATOR Associated Problem(s): High serum vitamin B12 Hold supplementation ALT PLANT OPERATOR * Assessment & Plan Note - Shanique Bazan MD - 07/05/2022 10:22 AM ASPHALT PLANT OPERATOR Associated Problem(s): Acute dystonic reaction due to [...] Benadryl prn dystonia - symptoms improved today ALT PLANT OPERATOR * Assessment & Plan Note - Shanique Bazan MD - 07/05/2022 10:22 AM ASPHALT PLANT OPERATOR Associated Problem(s): Facial spasm (Resolved 07/05/2022) Patient with onset of bilateral facial spasm over V3 regions, lasting ~1-2min. Ca, Mg, K wnl. limited concern for lesion as etiology given bilateral - Trial baclofen - checking Cu level ALT PLANT OPERATOR * Assessment & Plan Note - Shanique Bazan MD - 07/05/2022 10:22 AM ASPHALT PLANT OPERATOR Associated Problem(s): Chest pain, unspecified type (Resolved 07/14/2022) - Constant of L upper chest/shoulder region - worse with palpation and arm movement - hs-trop/EKG unremarkable; suspect MSK in etiology - Trial lidocaine patch, tylenol - PT/OT ALT PLANT OPERATOR * Assessment & Plan Note - Shanique Bazan MD - 07/05/2022 10:20 AM ASPHALT PLANT OPERATOR Associated Problem(s): Nausea & vomiting Patient presenting [...] PPI - Avoid cannabis - Consult GI ALT PLANT OPERATOR ALT PLANT OPERATOR ALT PLANT OPERATOR * Subjective & Objective - Shanique Bazan MD - 07/05/2022 10:13 AM ASPHALT PLANT OPERATOR Daily Progress Note Division of [facility] Medicine Name: Isabel Churchill Today: July 05, 2022 : 2005 Age: 17 y.o. female Admit: 07/03/2022 Bed: [id number] Subjective Chief complaint: nausea Interval History: persistent [...] this written report and agrees with it. ALT PLANT OPERATOR * Plan of Care - Alfredo Martins [...] dry heaving on and off all night. ALT PLANT OPERATOR * Hospital Course - Gita Duarte MD [...] on discharge. Sent ophtho referral on discharge. ALT PLANT OPERATOR ALT PLANT OPERATOR ALT PLANT OPERATOR ALT PLANT OPERATOR ALT PLANT OPERATOR ALT PLANT OPERATOR ALT PLANT OPERATOR ALT PLANT OPERATOR ALT PLANT OPERATOR ALT PLANT OPERATOR ALT PLANT OPERATOR ALT PLANT OPERATOR * Significant Event - Shanique Bazan MD - 07/04/2022 1:14 PM ASPHALT PLANT OPERATOR Called to room by RN because patient [...] Division of [facility] Medicine [facility] ALT PLANT OPERATOR * Assessment & Plan Note - Shanique Bazan MD - 07/04/2022 11:53 AM ASPHALT PLANT OPERATOR Associated Problem(s): High serum vitamin B12 Hold supplementation ALT PLANT OPERATOR * Assessment & Plan Note - Shanique Bazan MD - 07/04/2022 11:48 AM ASPHALT PLANT OPERATOR Associated Problem(s): Vitamin D deficiency 25 vit D on admission - started 50,000 units ergocalciferol qweek, plan x8w and repeat level ALT PLANT OPERATOR * Subjective & Objective - Shanique Bazan MD - 07/04/2022 11:27 AM ASPHALT PLANT OPERATOR Daily Progress Note Division of Hospital Medicine Name: Isabel Churchill Today: July 04, 2022 : 2005 Age: 17 y.o. female Admit: 07/03/2022 Bed: [id number] Subjective Chief complaint: vomiting, muscle twitching/spasm Interval [...] follow up: further workup in the ED ALT PLANT OPERATOR ALT PLANT OPERATOR * Plan of Care - Angelica Barnes [...] Goal: Pain level will decrease Outcome: Progressing ALT PLANT OPERATOR * Assessment & Plan Note - Asad Marquis MD - 07/03/2022 9:52 PM ASPHALT PLANT OPERATOR Associated Problem(s): Chest pain, unspecified type (Resolved 07/14/2022) - Constant of L upper chest/shoulder region - worse with palpation and arm movement - hs-trop/EKG unremarkable; suspect MSK in etiology - Trial lidocaine patch, tylenol - PT/OT ALT PLANT OPERATOR * Assessment & Plan Note - Shanique Bazan MD - 07/03/2022 9:50 PM ASPHALT PLANT OPERATOR Associated Problem(s): Facial spasm (Resolved 07/05/2022) Patient with onset of bilateral facial spasm over V3 regions, lasting ~1-2min. Ca, Mg, K wnl. limited concern for lesion as etiology given bilateral - Trial baclofen - checking Cu level ALT PLANT OPERATOR ALT PLANT OPERATOR ALT PLANT OPERATOR * Assessment & Plan Note - Shanique Bazan MD - 07/03/2022 9:44 PM ASPHALT PLANT OPERATOR Associated Problem(s): Abdominal pain (Resolved 07/05/2022) - [...] ongoing symptomatology with unremarkable workup - CTM ALT PLANT OPERATOR ALT PLANT OPERATOR ALT PLANT OPERATOR ALT PLANT OPERATOR ALT PLANT OPERATOR * Assessment & Plan Note - Asad Marquis MD - 07/03/2022 9:44 PM ASPHALT PLANT OPERATOR Associated Problem(s): Vision changes - Patient reports intermittent blurry vision over both eyes over the past several days (not presentduring encounter) - Unclear etiology - possible orthostatic; given history concern for 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; limited concern for optic neuritis given bilateral involvement - CTM, consider head imaging and ophthalmology consult if recurrent/ongoing during admission ALT PLANT OPERATOR ALT PLANT OPERATOR ALT PLANT OPERATOR * Assessment & Plan Note - Shanique Bazan MD - 07/03/2022 9:40 PM ASPHALT PLANT OPERATOR Associated Problem(s): Severe malnutrition (CMS/HCC) (HCC) Patient with chronically low BMI per chart review with current BMI 14 and reported 10 lb weight loss recently related to vomiting and poor po intake - RD consult - ADAT, Ensure TIDAC - Calorie Count ALT PLANT OPERATOR ALT PLANT OPERATOR * Assessment & Plan Note - Shanique Bazan MD - 07/03/2022 9:32 PM ASPHALT PLANT OPERATOR Associated Problem(s): Nausea & vomiting Patient presenting [...] PPI - Avoid cannabis - Check Utox ALT PLANT OPERATOR ALT PLANT OPERATOR ALT PLANT OPERATOR ALT PLANT OPERATOR ALT PLANT OPERATOR * ED Re-evaluation Note - Salena Cormier MD - 07/03/2022 7:19 PM ASPHALT PLANT OPERATOR ED Re-evaluation TRANSITION OF CARE: I, Salena [...] unusual for an 17 yo to have ACS/TN, though is possible. Also consider biliary colic, pancreatitis, colitis, inflammatory bowel disease. Will check labs, get CT abdomen/pelvis, hydrate, assess for metabolic abnormality due to poor PO intake, check HCG to r/o . By: Yayo Patterson MD Time: 07/03 928 Comment: Reviewed records from 06/18 at [facility], weight was listed as 46 kg at that time, now down to 40 kg. She tested + for fluA at that time. By: Yayo Patterson MD Time: 07/03 115 Comment: CT IMPRESSION: No CT correlate for acute abdominal pain. 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 ALT PLANT OPERATOR * ED Procedure Note - Ish Espinal MD - 07/03/2022 8:25 AM ASPHALT PLANT OPERATOR Associated Order(s): ECG 12 lead Procedure ECG 12 lead Date/Time: 07/03/2022 8:25 AM Performed by: Ish Espinal MD Authorized by: aYyo Patterson MD Rate: ECG rate: 97 ECG rate assessment: normal Rhythm: Rhythm: sinus rhythm Ectopy: Ectopy: none QRS: QRS axis: Normal QRS intervals: Normal Conduction: Conduction: normal ST segments: ST segments: Normal T waves: T waves: normal Previous ECG: Previous ECG: Unavailable Interpretation: Interpretation: No acute injury pattern Recommended Follow-up: Recommended follow up: further workup in the ED Ish Espinal MD 07/03/22 0825 ALT PLANT OPERATOR documented in this encounter Plan of Treatment Not on file documented as of this encounter Procedures Procedure Name Priority Date/Time Associated Diagnosis Comments EGFR Timed 07/13/2022 9:32 AM ASPHALT PLANT OPERATOR COMPREHENSIVE METABOLIC PANEL Timed 9:32 AM ASPHALT PLANT OPERATOR EGFR Timed 07/12/2022 9:20 PM ASPHALT PLANT OPERATOR PHOSPHORUS Timed 07/12/2022 9:20 PM ASPHALT PLANT OPERATOR MAGNESIUM Timed 07/12/2022 9:20 PM ASPHALT PLANT OPERATOR COMPREHENSIVE METABOLIC PANEL Timed 9:20 PM ASPHALT PLANT OPERATOR EGFR Timed 07/12/2022 8:38 AM ASPHALT PLANT OPERATOR COMPREHENSIVE METABOLIC PANEL Timed 8:38 AM ASPHALT PLANT OPERATOR EGFR Timed 07/11/2022 10:54 PM ASPHALT PLANT OPERATOR COMPREHENSIVE METABOLIC PANEL Timed 10:54 PM ASPHALT PLANT OPERATOR XR ABDOMEN AP 1 VIEW ED Urgent/IP Urgent 07/11/2022 3:28 PM ASPHALT PLANT OPERATOR XR ABDOMEN AP 1 VIEW ED Urgent/IP Urgent 07/11/2022 11:25 AM ASPHALT PLANT OPERATOR EGFR Routine 07/11/2022 5:24 AM ASPHALT PLANT OPERATOR BASIC METABOLIC PANEL Routine 07/11/2022 5:24 AM ASPHALT PLANT OPERATOR EGFR Routine 07/10/2022 3:22 AM ASPHALT PLANT OPERATOR BASIC METABOLIC PANEL Routine 07/10/2022 3:22 AM ASPHALT PLANT OPERATOR XR CHEST 1 VIEW ED Urgent/IP Urgent 07/09/2022 2:00 PM ASPHALT PLANT OPERATOR ECG 12-LEAD Routine 07/09/2022 12:33 PM ASPHALT PLANT OPERATOR TROPONIN I HIGH-SENSITIVITY STAT 06/21 11:26 AM ASPHALT PLANT OPERATOR EGFR Routine 07/09/2022 5:21 AM ASPHALT PLANT OPERATOR BASIC METABOLIC PANEL Routine 07/09/2022 5:21 AM ASPHALT PLANT OPERATOR EGFR Routine 07/08/2022 6:23 AM ASPHALT PLANT OPERATOR BASIC METABOLIC PANEL Routine 07/08/2022 6:23 AM ASPHALT PLANT OPERATOR SURGICAL PATHOLOGY Routine 07/07/2022 11:35 AM ASPHALT PLANT OPERATOR Nausea and vomiting, unspecified vomiting type EGD 07/07/2022 11:25 AM ASPHALT PLANT OPERATOR ESOPHAGOGASTRODUODENOSCOPY BIOPSY 07/07/2022 11:22 AM ASPHALT PLANT OPERATOR Nausea and vomiting, unspecified vomiting type EGFR Routine 07/07/2022 6:48 AM ASPHALT PLANT OPERATOR LEAD, BLOOD Routine 07/07/2022 6:48 AM ASPHALT PLANT OPERATOR BASIC METABOLIC PANEL Routine 07/07/2022 6:48 AM ASPHALT PLANT OPERATOR PROTIME-INR Routine 07/06/2022 10:03 PM ASPHALT PLANT OPERATOR EGFR Routine 07/06/2022 3:39 AM ASPHALT PLANT OPERATOR COPPER, SERUM Routine 07/06/2022 3:39 AM ASPHALT PLANT OPERATOR BASIC METABOLIC PANEL Routine 07/06/2022 3:39 AM ASPHALT PLANT OPERATOR MRI BRAIN W WO CONTRAST IP Routine 07/05/19 1:38 PM ASPHALT PLANT OPERATOR EEG Routine 07/04/2022 4:17 PM [employer]ALT PLANT [address] CT HEAD WO CONTRAST IP Routine 07/04/2022 1:56 PM ASPHALT PLANT OPERATOR HC GLIADIN ANTIBODY EACH IMMUNOGLOBULIN CLASS Timed 07/04/2022 5:41 AM ASPHALT PLANT OPERATOR EGFR Routine 07/04/2022 5:41 AM ASPHALT PLANT OPERATOR HIV 1/2 ANTIBODY PLUS P24 ANTIGEN Routine 07/04/2022 5:41 AM ASPHALT PLANT OPERATOR GLIADIN ANTIBODY, IGA Timed 07/04/2022 5:41 AM ASPHALT PLANT OPERATOR TISSUE TRANSGLUTAMINASE, IGA Timed 5:41 AM ASPHALT PLANT OPERATOR ERYTHROCYTE SEDIMENTATION RATE Timed 0 07/04/2022 5:41 AM ASPHALT PLANT OPERATOR PHOSPHORUS Routine 07/04/2022 5:41 AM ASPHALT PLANT OPERATOR MAGNESIUM Routine 07/04/2022 5:41 AM ASPHALT PLANT OPERATOR LEAD, BLOOD Routine 07/04/2022 5:41 AM ASPHALT PLANT OPERATOR BASIC METABOLIC PANEL Routine 07/04/2022 5:41 AM ASPHALT PLANT OPERATOR XR CHEST PA LATERAL 2 VIEWS ED 06/20 1:46 PM ASPHALT PLANT OPERATOR TROPONIN I HIGH-SENSITIVITY 2-HOUR Timed 07/03/2022 12:[address] ABDOMEN PELVIS W CONTRAST ED 11:30 AM ASPHALT PLANT OPERATOR DRUGS OF ABUSE SCREEN, URINE WITH REFLEX CONFIRMATION STAT 07/03/2022 10:30 AM ASPHALT PLANT OPERATOR HCG, URINE, QUALITATIVE STAT 07/03/19 10:30 AM ASPHALT PLANT OPERATOR POCT CREATININE - DEVICE Routine 023 10:23 AM ASPHALT PLANT OPERATOR URINALYSIS AND REFLEX TO MICROSCOPIC AND CULTURE STAT 07/03/2022 10:16 AM ASPHALT PLANT OPERATOR TROPONIN I HIGH-SENSITIVITY SERIES (BASELINE, 2HR, 4HR, 6HR) STAT 07/03/2022 10:15 AM ASPHALT PLANT OPERATOR EGFR STAT 07/03/2022 10:15 AM ASPHALT PLANT OPERATOR DIFFERENTIAL AUTO STAT 07/03/2022 10:15 AM ASPHALT PLANT OPERATOR THYROID FUNCTION CASCADE STAT 023 10:15 AM ASPHALT PLANT OPERATOR IRON PROFILE W/ IBC STAT 07/03/2022 10:15 AM ASPHALT PLANT OPERATOR RESPIRATORY PATHOGEN PANEL Routine 07/03 10:15 AM ASPHALT PLANT OPERATOR CBC WITH AUTO DIFFERENTIAL STAT 07/03 10:15 AM ASPHALT PLANT OPERATOR VITAMIN D 25 HYDROXY STAT 07/03/2022 10:15 AM ASPHALT PLANT OPERATOR CRP (ACUTE PHASE) STAT 07/03/2022 10:15 AM ASPHALT PLANT OPERATOR VITAMIN B1 Routine 07/03/2022 10:15 AM ASPHALT PLANT OPERATOR PHOSPHORUS Routine 07/03/2022 10:15 AM ASPHALT PLANT OPERATOR MAGNESIUM STAT 07/03/2022 10:15 AM ASPHALT PLANT OPERATOR LIPASE STAT 07/03/2022 10:15 AM ASPHALT PLANT OPERATOR IGA STAT 07/03/2022 10:15 AM ASPHALT PLANT OPERATOR FERRITIN STAT 07/03/2022 10:15 AM ASPHALT PLANT OPERATOR VITAMIN B12 STAT 07/03/2022 10:15 AM ASPHALT PLANT OPERATOR COMPREHENSIVE METABOLIC PANEL STAT 10:15 AM ASPHALT PLANT OPERATOR CALCIUM, IONIZED Routine 07/03/2022 9:42 AM ASPHALT PLANT OPERATOR ECG 12-LEAD STAT 07/03/2022 8:25 AM ASPHALT PLANT OPERATOR documented in this encounter Results * eGFR (07/13/2022 9:32 AM ASPHALT PLANT OPERATOR) eGFR >90 90 - 130 mL/min/1. 73 [...] last reviewed 2021. Blood 07/13/2022 9:32 AM ASPHALT PLANT OPERATOR 07/13/2022 9:56 AM ASPHALT PLANT OPERATOR us Grover Spaulding MD LAB BLOOD ORDERABLES Final Resul t [facility] Department [place] [address] * (ABNORMAL) Comprehensive metabolic panel (07/13/2022 9:32 AM ASPHALT PLANT OPERATOR) Sodium 140 135 - 145 mmol/L [facility] Potassium, pl 4.4 3.3 - 4.9 mmol/L [facility] Chloride 101 97 - 110 mmol/L [facility] CO2 29 22 - 32 mmol/L [facility] Anion gap 10 2 - 15 mmol/L [facility] BUN 11 8 - 25 mg/dL [facility] Creatinine 0.87 0.40 - 1.00 mg/dL [facility] Glucose 94 70 - 199 mg/dL [facility] Comment: Interpretive Data Fasting glucose >/= [...] 2022. Calcium 9.2 8.5 - 10.3 mg/dL [facility] Bilirubin, total 0.5 0.1 - 1.2 mg/dL [facility] Protein, pl 6.4(L) 6.5 - 8.5 g/dL [facility] Albumin 4.0 3.5 - 5.0 g/dL [facility] Alk phos 43(L) 70 - 260 Units/L [facility] ALT 12 7 - 45 Units/L [facility] AST 25 10 - 45 Units/L [facility] Blood 07/13/2022 9:32 AM ASPHALT PLANT OPERATOR 07/13/2022 9:56 AM ASPHALT PLANT OPERATOR us Grover Spaulding MD LAB BLOOD ORDERABLES Final Resul t [facility] [place] [address] * Phosphorus (07/12/2022 9:20 PM ASPHALT PLANT OPERATOR) Pathologist [facility] Phosphorus, pl 3.5 2.3 - 4.5 mg/dL [facility] Blood 07/12/2022 9:20 PM ASPHALT PLANT OPERATOR 07/12/2022 9:59 PM ASPHALT PLANT OPERATOR Gita Duarte MD LAB BLOOD ORDERABLES Final Resul t Performing Organization Address City/[facility] de Phone Number [facility] [place] [address] * Magnesium (07/12/2022 9:20 PM ASPHALT PLANT OPERATOR) [facility] Magnesium 2.0 1.4 - 2.5 mg/dL [facility] Blood 07/12/2022 9:20 PM ASPHALT PLANT OPERATOR 07/12/2022 9:59 PM ASPHALT PLANT OPERATOR Gita Duarte MD LAB BLOOD ORDERABLES Final Resul t Performing Organization Address [facility] de Phone Number [facility] [place] [address] * eGFR (07/12/2022 9:20 PM [employer] OPERATOR) Pathologist [facility] eGFR >90 90 - 130 mL/min/1. 73 m2 [facility] Comment: Interpretive Data Reference Interval Normal [...] last reviewed 2021. Blood 07/12/2022 9:20 PM [employer] OPERATOR 07/12/2022 9:59 PM [employer] OPERATOR us Grover Spaulding MD LAB BLOOD ORDERABLES Final Resul t [facility] [place] [address] * (ABNORMAL) Comprehensive metabolic panel (07/12/2022 9:20 PM [employer] OPERATOR) Pathologist [facility] Sodium 138 135 - 145 mmol/L [facility] Potassium, pl 4.1 3.3 - 4.9 mmol/L [facility] Chloride 104 97 - 110 mmol/L [facility] CO2 28 22 - 32 mmol/L [facility] Anion gap 6 2 - 15 mmol/L [facility] BUN 10 8 - 25 mg/dL [facility] Creatinine 0.90 0.40 - 1.00 mg/dL [facility] Glucose 101 70 - 199 mg/dL [facility] Comment: Interpretive Data Fasting glucose >/= [...] 2022. Calcium 8.9 8.5 - 10.3 mg/dL [facility] Bilirubin, total 0.6 0.1 - 1.2 mg/dL [facility] Protein, pl 6.2(L) 6.5 - 8.5 g/dL [facility] Albumin 3.9 3.5 - 5.0 g/dL [facility] Alk phos 47(L) 70 - 260 Units/L [facility] ALT 16 7 - 45 Units/L [facility] AST 24 10 - 45 Units/L [facility] Blood 07/12/2022 9:20 PM [employer] OPER[employer] 07/12/2022 9:59 PM [employer] OPERATOR us Grover Spaulding MD LAB BLOOD ORDERABLES Final Resul t [facility] [place] [address] * (ABNORMAL) eGFR (07/12/2022 8:38 AM [employer] OPERATOR) eGFR 83(L) 90 - 130 mL/min/1. 73 m2 [facility] Comment: Interpretive Data Reference Interval Normal [...] last reviewed 2021. Blood 07/12/2022 8:38 AM [employer] OPERATOR 07/12/2022 10:43 AM [employer] OPERATOR us Grover Spaulding MD LAB BLOOD ORDERABLES Final Resul t [facility] [place] [address] * (ABNORMAL) Comprehensive metabolic panel (07/12/2022 8:38 AM [employer] OPER[employer]) Sodium 139 135 - 145 mmol/L [facility] Potassium, pl 4.0 3.3 - 4.9 mmol/L [facility] Chloride 100 97 - 110 mmol/L [facility] CO2 29 22 - 32 mmol/L [facility] Anion gap 10 2 - 15 mmol/L [facility] BUN 12 8 - 25 mg/dL [facility] Creatinine 1.01(H) 0.40 - 1.00 mg/dL [facility] Glucose 92 70 - 199 mg/dL [facility] Comment: Interpretive Data Fasting glucose >/= [...] 2022. Calcium 9.1 8.5 - 10.3 mg/dL [facility] Bilirubin, total 1.0 0.1 - 1.2 mg/dL [facility] Protein, pl 6.3(L) 6.5 - 8.5 g/dL [facility] Albumin 3.9 3.5 - 5.0 g/dL [facility] Alk phos 38(L) 70 - 260 Units/L [facility] ALT 10 7 - 45 Units/L [facility] AST 19 10 - 45 Units/L [facility] Blood 07/12/2022 8:38 AM [employer] OPERATOR 07/12/2022 10:43 AM [employer] OPERATOR us Grover Spaulding MD LAB BLOOD ORDERABLES Final Resul t [facility] [place] [address] * eGFR (07/11/2022 10:54 PM [employer]PER[employer]) eGFR >90 90 - 130 mL/min/1. 73 m2 [facility] Comment: Interpretive Data Reference Interval Normal [...] reviewed 2021. Blood 07/11/2022 10:5 4 PM [employer] OPERATOR 07/11/2022 11:22 PM [employer] OPERATOR us Grover Spaulding MD LAB BLOOD ORDERABLES Final Resul t [facility] [place] [address] * (ABNORMAL) Comprehensive metabolic panel (07/11/2022 10:54 PM [employer] OPERATOR) Sodium 139 135 - 145 mmol/L [facility] Potassium, pl 3.6 3.3 - 4.9 mmol/L [facility] Chloride 101 97 - 110 mmol/L [facility] CO2 30 22 - 32 mmol/L [facility] Anion gap 8 2 - 15 mmol/L [facility] BUN 10 8 - 25 mg/dL [facility] Creatinine 0.93 0.40 - 1.00 mg/dL [facility] Glucose 108 70 - 199 mg/dL [facility] Comment: Interpretive Data Fasting glucose >/= [...] 2022. Calcium 9.0 8.5 - 10.3 mg/dL [facility] Bilirubin, total 1.2 0.1 - 1.2 mg/dL [facility] Protein, pl 6.4(L) 6.5 - 8.5 g/dL [facility] Albumin 4.0 3.5 - 5.0 g/dL [facility] Alk phos 38(L) 70 - 260 Units/L [facility] ALT 10 7 - 45 Units/L [facility] AST 22 10 - 45 Units/L [facility] Blood 07/11/2022 10:5 4 PM [employer] OPERATOR 07/11/2022 11:22 PM [employer] OPERATOR us Grover Spaulding MD LAB BLOOD ORDERABLES Final Resul t [facility] [place] [address] * XR Abdomen Ap 1 Vw (07/11/2022 3:28 PM [employer] OPERATOR) Anatomical Region Laterality Modality Body, Abdomen N/A Computed Radiogr aphy 07/12/2022 10:0 1 AM [employer] OPERATOR Impressions 07/12/2022 11:43 AM [employer] OPERATOR Two single view radiograph of the abdomen [...] Miguel Juan M.D. Narrative 07/12/2022 11:43 AM [employer] OPERATOR EXAMINATION: Two abdomen one view radiographs. HISTORY: [...] Abdomen Ap 1 Vw (07/11/2022 11:25 AM [employer] OPERATOR) Anatomical Region Laterality Modality Body, Abdomen N/A Computed Radiogr aphy 07/12/2022 10:0 1 AM [employer] OPERATOR Impressions 07/12/2022 11:43 AM [employer] OPERATOR Two single view radiograph of the abdomen [...] Miguel Juan M.D. Narrative 07/12/2022 11:43 AM [employer] OPERATOR EXAMINATION: Two abdomen one view radiographs. HISTORY: [...] Final Result * eGFR (07/11/2022 5:24 AM [employer] OPERATOR) eGFR >90 90 - 130 mL/min/1. 73 m2 [facility] Comment: Interpretive Data Reference Interval Normal [...] last reviewed 2021. Blood 07/11/2022 5:24 AM [employer] OPERATOR 07/11/2022 5:54 AM [employer] OPERATOR Shanique Bazan MD LAB BLOOD ORDERABLES Anjana l Result Performing Organization Address City/[facility]/ZIP Co de Phone Number [facility] [place] [address] * Basic metabolic panel (07/11/2022 5:24 AM [employer] OPERATOR) Pathologist [facility] Sodium 140 135 - 145 mmol/L [facility] Potassium, pl 3.7 3.3 - 4.9 mmol/L [facility] Chloride 102 97 - 110 mmol/L [facility] CO2 28 22 - 32 mmol/L [facility] Anion gap 10 2 - 15 mmol/L [facility] BUN 10 8 - 25 mg/dL [facility] Creatinine 0.92 0.40 - 1.00 mg/dL [facility] Glucose 96 70 - 199 mg/dL [facility] Comment: Interpretive Data Fasting glucose >/= [...] 2022. Calcium 9.5 8.5 - 10.3 mg/dL [facility] Blood 07/11/2022 5:24 AM [employer] OPERATOR 07/11/2022 5:54 AM [employer] OPERATOR Shanique Bazan MD LAB BLOOD ORDERABLES Anjana l Result Performing Organization Address [facility]/ZIP Co de Phone Number [facility] [place] [address] * (ABNORMAL) eGFR (07/10/2022 3:22 AM [employer] OPERATOR) Pathologist [facility] eGFR 84(L) 90 - 130 mL/min/1. 73 m2 [facility] Comment: Interpretive Data Reference Interval Normal [...] last reviewed 2021. Blood 07/10/2022 3:22 AM [employer] OPERATOR 07/10/2022 4:33 AM [employer] OPERATOR us Shanique Bazan MD LAB BLOOD ORDERABLES Anjana andersen Result [facility] [place] [address] * Basic metabolic panel (07/10/2022 3:22 AM [employer] OPERATOR) Sodium 140 135 - 145 mmol/L [facility] Potassium, pl 3.9 3.3 - 4.9 mmol/L [facility] Chloride 102 97 - 110 mmol/L [facility] CO2 31 22 - 32 mmol/L [facility] Anion gap 7 2 - 15 mmol/L [facility] BUN 11 8 - 25 mg/dL [facility] Creatinine 1.00 0.40 - 1.00 mg/dL [facility] Glucose 92 70 - 199 mg/dL [facility] Comment: Interpretive Data Fasting glucose >/= [...] 2022. Calcium 9.6 8.5 - 10.3 mg/dL [facility] Blood 07/10/2022 3:22 AM [employer] OPERATOR 07/10/2022 4:33 AM [employer] OPERATOR Shanique Bazan MD LAB BLOOD ORDERABLES Anjana andersen Result [facility] [place] [address] * XR Chest 1 View (07/09/2022 2:00 PM [employer] OPERATOR) Anatomical Region Laterality Modality Body, Chest N/A Computed Radiogr aphy 07/09/2022 2:34 PM [employer] OPERATOR Impressions 07/09/2022 5:03 PM [employer] OPERATOR The current study is compared with the prior radiograph dated 07/03/2022. ??The lungs are clear without pulmonary consolidation, pleural effusion, or pneumothorax. ??The cardiomediastinal silhouette is unchanged. Dictated by: Triston Sierra MD The radiology attending physician has personally reviewed this study, and had reviewed and/or edited this written report and agrees with it. Electronically signed by: Elizabeth Delvalle M.D. Narrative 07/09/2022 5:03 PM [employer] OPERATOR EXAMINATION: 1 view chest radiograph Procedure Note [...] * ECG 12 lead (07/09/2022 12:33 PM [employer] OPERATOR) [facility] Ventricular Rate EKG/Min 80 BPM [facility] Atrial Rate 80 BPM [facility] UT-Interval (MSEC) 166 ms [facility] QRS-Interval (MSEC) 74 ms [facility] QT-Interval (MSEC) 378 ms [facility] QTc 435 ms [facility] P [place] 73 degrees [facility] R [place] 76 degrees [facility] T [place] 61 degrees [facility] Diagnosis Normal sinus rhythm Anteroseptal infarct , age undetermined Abnormal ECG No previous ECGs available Confirmed by HUGO UP M.D ([id number]) on 07/12/2022 9:59:49 AM [facility] 07/09/2022 12:3 3 PM [employer] OPERATOR 07/12/2022 9:59 AM [employer] OPERATOR Grover Spaulding MD ECG ORDERABLES Final Result [facility] * Troponin I high-sensitivity (07/09/2022 11:26 AM [employer] OPERATOR) [facility] Trop I hs <4 <=17 ng/L [facility] Comment: Interpretive Data For further hscTnI resources including the diagnostic algorithm and an aid in interpretation, copy and paste this link: [email or web address]://bjhlab.testcatalog.org/show/[email or web address] Current Interpretive Data last revised 2019. Blood 07/09/2022 11:2 6 AM [employer] OPERATOR 07/09/2022 12:37 PM [employer] OPERATOR us Grover Spaulding MD LAB BLOOD ORDERABLES Final Resul t Performing Organization Address [facility] de Phone Number [facility] [place] [address] * eGFR (07/09/2022 5:21 AM [employer] OPERATOR) eGFR >90 90 - 130 mL/min/1. 73 m2 [facility] Comment: Interpretive Data Reference Interval Normal [...] last reviewed 2021. Blood 07/09/2022 5:21 AM [employer] OPERATOR 07/09/2022 6:21 AM [employer] OPERATOR us Shanique Bazan MD LAB BLOOD ORDERABLES Anjana l Result Performing Organization Address [facility]/State/ZIP Co de Phone Number [facility] [place] [address] * Basic metabolic panel (07/09/2022 5:21 AM [employer] OPERATOR) Pathologist [facility] Sodium 136 135 - 145 mmol/L [facility] Potassium, pl 3.7 3.3 - 4.9 mmol/L [facility] Chloride 101 97 - 110 mmol/L [facility] CO2 28 22 - 32 mmol/L [facility] Anion gap 7 2 - 15 mmol/L [facility] BUN 13 8 - 25 mg/dL [facility] Creatinine 0.91 0.40 - 1.00 mg/dL [facility] Glucose 92 70 - 199 mg/dL [facility] Comment: Interpretive Data Fasting glucose >/= [...] 2022. Calcium 9.2 8.5 - 10.3 mg/dL [facility] Blood 07/09/2022 5:21 AM [employer] OPERATOR 07/09/2022 6:21 AM [employer] OPERATOR Shanique Bazan MD LAB BLOOD ORDERABLES Anjana andersen Result [facility] [place] [address] * eGFR (07/08/2022 6:23 AM [employer] OPERATOR) [facility] eGFR >90 90 - 130 mL/min/1. 73 m2 [facility] Comment: Interpretive Data Reference Interval Normal [...] last reviewed 2021. Blood 07/08/2022 6:23 AM [employer] OPERATOR 07/08/2022 7:35 AM [employer] OPERATOR us Shanique Bazan MD LAB BLOOD ORDERABLES Anjana andersen Result [facility] [place] [address] * Basic metabolic panel (07/08/2022 6:23 AM [employer] OPERATOR) Pathologist [facility] Sodium 138 135 - 145 mmol/L [facility] Potassium, pl 4.1 3.3 - 4.9 mmol/L [facility] Chloride 100 97 - 110 mmol/L [facility] CO2 26 22 - 32 mmol/L [facility] Anion gap 12 2 - 15 mmol/L [facility] BUN 13 8 - 25 mg/dL [facility] Creatinine 0.93 0.40 - 1.00 mg/dL [facility] Glucose 90 70 - 199 mg/dL [facility] Comment: Interpretive Data Fasting glucose >/= [...] 2022. Calcium 9.6 8.5 - 10.3 mg/dL [facility] Blood 07/08/2022 6:23 AM [employer] OPERATOR 07/08/2022 7:20 AM [employer] OPERATOR Shanique Bazan MD LAB BLOOD ORDERABLES Anjana andersen Result [facility] [place] [address] * Surgical pathology (07/07/2022 11:35 AM [employer] OPERATOR) Tissue (Duodenum, Biopsy) 07/07/2022 11:35 AM [employer] OPERATOR Tissue (Gastric/Stomach biopsy) 07/07/2022 11:37 AM [employer] OPERATOR Tissue (Esophageal biopsy) 07/07/2022 11:39 AM [employer] PL[employer] OPERATOR Narrative PATHOLOGY [facility] - 07/08/2022 7:57 AM [employer] OPERATOR EPIC results best viewed via link to PDF [facility] [place] [address] Note to Patients: This report may contain [...] ??F : ??2005 (Age: 17) Address: ??[address], [place], [place] ??[address] Hospital #: ??[id number] Taken:07/07/2022 Received:07/07/2022 Reported: 07/08/2022 Patient Type: [facility] Inpatient ?? Service: Hospitalist Location: [place] [address] Physician(s): ??Oswald Solano M.D. Diagnosis: A. ??Duodenum, [...] other material indicated in the diagnosis). Shi Malolry M.D. Report Electronically Reviewed and Signed Out [...] Surgical Pathology and Flow Cytometry Departments at [facility] as part of an ongoing supervisor quality control program and in compliance with federally mandated [...] Surgical Pathology and Flow Cytometry Departments of [facility]. ??It has not been cleared or approved by the U. S. Food and Drug Administration. IMAGES AND SCANNED DOCUMENTS, IF INCLUDED, ONLY VIEWABLE IN PDF VERSION OF REPORT Brittnee Babb MD LAB PATHOLOGY ORDERAB LES Final Result PATHOLOGY [facility] 3rd Floor [place], [place] [phone] * EGD (07/07/2022 11:25 AM [employer] OPERATOR) Anatomical Region Laterality Modality Other Narrative Procedure Note Brittnee Babb MD - 07/07/2022 11:25 AM [facility] Patient Name: Isabel Churchill Procedure Date: 07/07/2022 11:25 AM Date of : 2005 Admit Type: Inpatient Age: 17 Gender: Female Attending MD: Brittnee Babb M.D. Room: [facility] ENDOSCOPY ROOM 9 Note Status: Finalized Procedure: [...] Monitored anesthesia care under the supervisionof a H[employer] WORKER was determined to be medically necessary forthis [...] the days following this procedure please call [phone]. After hours and evenings please call [phone] speak to the GI fellow rest room matron. Please tell thefellow that Dr. Babbdid your [...] On: 07/07/2022 11:25 AM Recognized by the [employer] for promoting quality in endoscopy Brittnee Babb MD ENDOSCOPY PROCEDURES Final Result * eGFR (07/07/2022 6:48 AM [employer] OPERATOR) eGFR >90 90 - 130 mL/min/1. 73 [...] last reviewed 2021. Blood 07/07/2022 6:48 AM [employer] OPERATOR 07/07/2022 7:07 AM [employer] OPERATOR Shanique Bazan MD LAB BLOOD ORDERABLES Anjana l Result [facility] [place] [address] * Basic metabolic panel (07/07/2022 6:48 AM [employer] OPERATOR) Sodium 138 135 - 145 mmol/L [facility] Potassium, pl 4.0 3.3 - 4.9 mmol/L [facility] Chloride 98 97 - 110 mmol/L [facility] CO2 26 22 - 32 mmol/L [facility] Anion gap 14 2 - 15 mmol/L [facility] BUN 12 8 - 25 mg/dL [facility] Creatinine 0.92 0.40 - 1.00 mg/dL [facility] Glucose 92 70 - 199 mg/dL [facility] Comment: Interpretive Data Fasting glucose >/= [...] 2022. Calcium 9.6 8.5 - 10.3 mg/dL [facility] Blood 07/07/2022 6:48 AM [employer] OPERATOR 07/07/2022 7:07 AM [employer] OPERATOR Shanique Bazan MD LAB BLOOD ORDERABLES Anjana andersen Result [facility] [place] [address] * Lead, blood (07/07/2022 6:48 AM [employer] OPERATOR) Pathologist [facility] Lead <1.0 <5.0 mcg/dL [facility] Comment: ADDITIONAL INFORMATION Testing performed by Inductively Coupled Plasma-Mass Spectrometry (ICP-MS). This test was developed and its performance characteristics determined by [facility] in a manner consistent with CLIA requirements. This test has not been cleared or approved by the U.S. Food and Drug Administration. Interpretive Data Testing performed by: [facility], [place] [address]. Blood 07/07/2022 6:48 AM [employer] OPERATOR 07/07/2022 7:17 AM [employer] OPERATOR Grover Spaulding MD LAB BLOOD ORDERABLES Final Resul t Performing Organization Address [facility] de Phone Number [facility] [place] [address] * Protime-INR (07/06/2022 10:03 PM [employer] OPERATOR) PT 13.5 9.2 - 13.5 sec [facility] INR 1.2 0.9 - 1.2 [facility] Comment: Interpretive data Oral anticoagulant therapeutic ranges: Venous thromboembolism prophylaxis or treatment: 2.0-3.0 CARDIOLOGY Standard range: 2.0-3.0 High-intensity range: 2.5-3.5 Refer to indication-specific guidelines for appropriate target ranges for prosthetic heart valve replacement. Current interpretive data was last revised on 2019. Blood 07/06/2022 10:0 3 PM [employer] OPERATOR 07/06/2022 11:40 PM [employer]ALT [employer] OPERATOR Grover Spaulding MD LAB BLOOD ORDERABLES Final Resul t Performing Organization Address [facility] de Phone Number [facility] [place] [address] * eGFR (07/06/2022 3:39 AM [employer] OPERATOR) eGFR >90 90 - 130 mL/min/1. 73 m2 [facility] Comment: Interpretive Data Reference Interval Normal [...] last reviewed 2021. Blood 07/06/2022 3:39 AM [employer] OPERATOR 07/06/2022 4:22 AM [employer]ALT [employer] OPERATOR Shanique Bazan MD LAB BLOOD ORDERABLES Anjana andersen Result [facility] [place] [address] * (ABNORMAL) Basic metabolic panel (07/06/2022 3:39 AM [employer] OPERATOR) Pathologist [facility] Sodium 136 135 - 145 mmol/L [facility] Potassium, pl 3.8 3.3 - 4.9 mmol/L [facility] Chloride 101 97 - 110 mmol/L [facility] CO2 28 22 - 32 mmol/L [facility] Anion gap 7 2 - 15 mmol/L [facility] BUN 6(L) 8 - 25 mg/dL [facility] Creatinine 0.90 0.40 - 1.00 mg/dL [facility] Glucose 94 70 - 199 mg/dL [facility] Comment: Interpretive Data Fasting glucose >/= [...] Calcium 9.9 8.5 - 10.3 mg/dL [facility] Blood 07/06/2022 3:39 AM [employer] PLANT OPERATOR 07/06/2022 4:22 AM [employer]HALT PLANT OPERATOR Shanique Bazan MD LAB BLOOD ORDERABLES Anjana l Result Performing Organization Address [facility] de Phone Number [facility] [place] [address] * (ABNORMAL) Copper, serum (07/06/2022 3:39 AM [employer]ALT PLANT OPERATOR) [facility] Copper 70(L) 77 - 206 mcg/dL [facility] Comment: ADDITIONAL INFORMATION This test was developed and its performance characteristics determined by [facility] in a manner consistent with CLIA requirements. This test has not been cleared or approved by the U.S. Food and Drug Administration. Test Performed by: [facility] [place] [address] Time Clock Mechanic: Juan Villagran M.D. Ph.D.; CLIA# [id number] Blood 07/06/2022 3:39 AM [employer] OPERATOR 07/06/2022 4:15 AM [employer]ALT PLANT OPERATOR Shanique Bazan MD LAB BLOOD ORDERABLES Anjana l Result Performing Organization Address [facility] de Phone Number [facility] [place] [address] * MRI Brain W WO Contrast (07/05/2022 1:38 PM [employer] OPERATOR) Anatomical Region Laterality Modality Head and Neck N/A Magnetic Resonan ce 07/05/2022 1:57 PM [employer] OPERATOR Impressions 07/05/2022 2:11 PM [employer] OPERATOR Crowding of the foramen magnum with 3 [...] Beatrice Silva M.D. Narrative 07/05/2022 2:11 PM [employer]ALT [employer] OPERATOR EXAMINATION: Magnetic resonance imaging (MRI) of the [...] Final Result * EEG (07/04/2022 4:17 PM [employer] OPERATOR) Anatomical Region Laterality Modality EEG Narrative 07/05/2022 12:20 PM [employer]ALT [employer] OPERATOR Extended EEG Report Patient Name: Isabel Churchill [facility] Medical Record Number (MRN): [id number] [facility] Record: No Soarian MRN Date [...] 32 channel EEG recording acquired on a [employer] EEG-1200 acquisition system. Scalp electrodes were placed [...] CT Head WO Contrast (07/04/2022 1:56 PM [employer] OPERATOR) Anatomical Region Laterality Modality Head and Neck N/A Computed Tomogra phy 07/04/2022 2:00 PM [employer] OPERATOR Impressions 07/04/2022 3:47 PM [employer] OPERATOR No intracranial hemorrhage, mass effect or midline shift. Dictated by: Lamin Vargas M.D. The radiology attending physician has personally reviewed this study, and had reviewed and/or edited this written report and agrees with it. Electronically signed by: Olga Akers M.D. Narrative 07/04/2022 3:47 PM [employer]ALT [employer] OPERATOR EXAMINATION: CT head without contrast HISTORY: Muscle [...] R esult * eGFR (07/04/2022 5:41 AM [employer]HALT [employer]ANT OPERATOR) eGFR >90 90 - 130 mL/min/1. 73 [...] last reviewed 2021. Blood 07/04/2022 5:41 AM [employer]ANT OPERATOR 07/04/2022 6:35 AM [employer] OPERATOR us Asad Marquis MD LAB BLOOD ORDERABLES Anjana andersen Result [facility] [place] [address] * Tissue transglutaminase IgA (TGG-IgA Ab) (07/04/2022 5:41 AM [employer] OPERATOR) TTG ab, IgA <0.5 <=14.9 units/mL [facility] [facility] Comment: Interpretive data Negative: <15 units/mL Positive: > or equal to 15 units/mL Current interpretive data was last revised on 2016. Blood 07/04/2022 5:41 AM [employer]PER[employer] 07/04/2022 6:22 AM [employer] OPERATOR us Ady Emanuel MD LAB BLOOD ORDERABLES Final R esult Performing Organization Address City/[facility]/ZIP Co de Phone Number [facility] [place] [address] * Magnesium (07/04/2022 5:41 AM [employer] OPERATOR) Magnesium 1.9 1.4 - 2.5 mg/dL [facility] Blood 07/04/2022 5:41 AM [employer] OPER[employer] 07/04/2022 6:19 AM [employer] OPERATOR us Ady Emanuel MD LAB BLOOD ORDERABLES Final R esult Performing Organization Address [facility] Co de Phone Number [facility] [place] [address] * Gliadin antibody, IgA (07/04/2022 5:41 AM [employer] OPER[employer]) Anti-gliadin, IgA 0.5 <=14.9 units/mL [facility] Comment: Interpretive data Negative: <15 units/mL Positive: > or equal to 15 units/mL Current interpretive data was last revised on 2016. Blood 07/04/2022 5:41 AM [employer] OPER[employer] 07/04/2022 6:22 AM [employer] OPERATOR us Ady Emanuel MD LAB BLOOD ORDERABLES Final R esult Performing Organization Address City/[facility] Co de Phone Number [facility] [place] [address] * Erythrocyte sedimentation rate (07/04/2022 5:41 AM [employer] OPER[employer]) Erythrocyte sedimentation rate 9 1 - 20 mm/hr [facility] Blood 07/04/2022 5:41 AM [employer] OPERATOR 07/04/2022 6:20 AM [employer] OPERATOR us Ady Emanuel MD LAB BLOOD ORDERABLES Final R esult Performing Organization Address City/[facility]/ZIP Co de Phone Number [facility] [place] [address] * Phosphorus (07/04/2022 5:41 AM [employer] OPERATOR) Phosphorus, pl 3.9 2.3 - 4.5 mg/dL [facility] Blood 07/04/2022 5:41 AM [employer] OPERATOR 07/04/2022 6:19 AM [employer] OPERATOR Asad Marquis MD LAB BLOOD ORDERABLES Anjana l Result Performing Organization Address [facility] Co de Phone Number [facility] [place] [address] * (ABNORMAL) Basic metabolic panel (07/04/2022 5:41 AM [employer] OPERATOR) Sodium 140 135 - 145 mmol/L [facility] Potassium, pl 3.5 3.3 - 4.9 mmol/L [facility] Chloride 104 97 - 110 mmol/L [facility] CO2 28 22 - 32 mmol/L [facility] Anion gap 8 2 - 15 mmol/L [facility] BUN 4(L) 8 - 25 mg/dL [facility] Creatinine 0.72 0.40 - 1.00 mg/dL [facility] Glucose 101 70 - 199 mg/dL [facility] Comment: Interpretive Data Fasting glucose >/= [...] 2017. Calcium 9.3 8.5 - 10.3 mg/dL [facility] Blood 07/04/2022 5:41 AM [employer] OPERATOR 07/04/2022 6:19 AM [employer] OPERATOR Asad Marquis MD LAB BLOOD ORDERABLES Anjana l Result Performing Organization Address [facility] Co de Phone Number [facility] [place] [address] * Lead, blood (07/04/2022 5:41 AM [employer] OPERATOR) Lead TNP [facility] Comment: Credited, collection error. Lead, Venous, B was cancelled on 07/06/2022 at 09:49; Specimen was improperly collected. [place] blue no additive tube received. ??[place] blue EDTA tube required. Interpretive Data Testing performed by: [facility], [place] [address]. Blood 07/04/2022 5:41 AM [employer] OPERATOR 07/04/2022 6:13 AM [employer] OPERATOR Result [facility] Asad Marquis MD LAB BLOOD ORDERABLES Edit ed Result - Final Performing Organization Address [facility] de Phone Number [facility] [place] [address] * HIV 1/2 Antibody plus p24 Antigen Blood (07/04/2022 5:41 AM [employer] OPERATOR) HIV 1/2 ab + p24 ag Nonreactive Nonreactive [facility] Comment:Nonreactive for HIV- 1 antigen and HIV-1/HIV-2 antibodies. No laboratory evidence of HIV infection. If acute HIV infection is suspected, consider testing for HIV-1 RNA. Current interpretive data was last revised on 22. Blood 07/04/2022 5:41 AM [employer] OPERATOR 07/04/2022 6:20 AM [employer] OPERATOR Asad Marquis MD LAB MICROBIOLOGY - GENERA L ORDERABLES Final Result Performing Organization Address [facility]/State/ZIP Co de Phone Number [facility] [place] [address] * XR Chest Pa Lateral 2 Views (07/03/2022 1:46 PM [employer] OPERATOR) Anatomical Region Laterality Modality Body, Chest N/A Computed Radiogr aphy 07/03/2022 2:05 PM [employer] OPERATOR Impressions 07/03/2022 2:20 PM [employer] OPERATOR There are no relevant prior studies available [...] Shanique Maxwell MD Narrative 07/03/2022 2:20 PM [employer] OPERATOR EXAMINATION: XR CHEST PA LATERAL 2 VIEWS [...] agrees with it. Electronically signed by: Shanique Maxwlel MD Jorge Degroot MD IMG XR PROCEDURES Final R esult * Troponin I high-sensitivity 2-hour (07/03/2022 12:03 PM [employer] OPER[employer]) Trop I hs <4 <=17 ng/L [facility] Comment: Interpretive Data For further hscTnI resources including the diagnostic algorithm and an aid in interpretation, copy and paste this link: https://bjhlab.testcatalog.org/show/[email or web address] Current Interpretive Data last revised 2019. Trop I hs delta 0 ng/L [facility] Trop I hs interp Insignificant [facility] Blood 07/03/2022 12:0 3 PM [employer] OPER[employer] 07/03/2022 12:07 PM [employer] OPERATOR us Jorge Degroot MD LAB BLOOD ORDERABLES Anjana l Result [facility] [place] [address] * CT Abdomen Pelvis W Contrast (07/03/2022 11:30 AM [employer] OPERATOR) Anatomical Region Laterality Modality Body N/A Computed Tomogra phy 07/03/2022 11:4 2 AM [employer] OPERATOR Impressions 07/03/2022 11:51 AM [employer] OPERATOR No CT correlate for acute abdominal pain. Dictated by: Tanja Wood MD The radiology attending physician has personally reviewed this study, and had reviewed and/or edited this written report and agrees with it. Electronically signed by: Clemente Foster M.D. Narrative 07/03/2022 11:51 AM [employer] OPERATOR EXAMINATION: ??Computed tomography of the abdomen and [...] Urine with Reflex Confirmation (07/03/2022 10:30 AM [employer] OPERATOR) Amphetamine, ur Not Detected CutOff 500ng/mL [facility] Comment: Interpretive Data - Amphetamines: ??Samples containing greater than 500 ng/mL d-methamphetamine ??or other cross-reacting amphetamine compounds are reported as positive. ??Amphetamine immunoassays are subject to significant false positive rates due to cross-reactivity of non-amphetamine drugs. Current Interpretive Data was last reviewed 2018. Barbiturates, ur Not Detected CutOff 200ng/mL [facility] Comment: Interpretive Data - Barbiturates: ??Samples containing greater than 200 ng/mL secobarbital or other cross-reacting barbiturate compounds are reported as positive. ??False positive and false negative results are possible. Current Interpretive Data was last reviewed 2018. Benzodiazepines, ur Not Detected CutOff 100ng/mL [facility] Comment: Interpretive Data - Benzodiazepines: ??Samples containing greater than 100 ng/mL nordiazepam or other cross-reacting compounds are reported as positive. ?? False positive and false negative results are possible. ?? Current Interpretive Data was last reviewed 2018. Cannabinoids, ur Detected(A) CutOff 50 ng/mL [facility] Cocaine, ur Not Detected CutOff 150ng/mL [facility] Comment: Interpretive Data - Cocaine: ??Samples containing greater than 150 ng/mL benzoylecgonine or other cross-reacting compounds are reported as positive. False positive and false negative results are possible. Current Interpretive Data was last reviewed 2018. Fentanyl, Ur Not Detected Cutoff 1 ng/mL [facility] Comment: Interpretive Data - Fentanyls: ??Samples containing greater than 1 ng/mL fentanyl or other cross-reacting fentanyl compounds are reported as detected. ??False positive and false negative results are possible. Current Interpretive Data was last reviewed 2019. Methadone, ur Not Detected CutOff 300ng/mL [facility] Comment: Interpretive Data - Methadone: ??Samples containing greater than 300 ng/mL d,l-methadone or other cross-reacting compounds are reported as positive. ??False positive and false negative results are possible. Current Interpretive Data was last reviewed 2018. Opiates, ur Not Detected CutOff 300ng/mL [facility] Comment: Interpretive Data - Opiates: ??Samples containing greater than 300 ng/mL morphine or other cross-reacting compounds are reported as positive. ??False positive and false negative results are possible. Current Interpretive Data was last reviewed 2018. Oxycodone, ur Not Detected CutOff 100ng/mL [facility] Comment: Interpretive Data - Oxycodone: ??Samples containing greater than 100 ng/mL oxycodone or other cross-reacting compounds are reported as positive. ??False positive and false negative results are possible. ?? Current Interpretive Data was last reviewed 2018. Phencyclidine, ur Not Detected CutOff 25 ng/mL [facility] Comment: Interpretive Data - Phencyclidine: ??Samples containing greater than 25 ng/mL phencyclidine or other cross-reacting compounds are reported as positive. ??False positive and false negative results are possible. ?? Current Interpretive Data was last reviewed 2018. Urine Creatinine 65 mg/dL [facility] Comment: Interpretive Data Urine Creatinine: < 10 mg/dL is extremely dilute = or > 10 but < 20 mg/dL is dilute = or > 20 mg/dL is normal Current Interpretive Data was last revised on 2017. Urine 07/03/2022 10:3 0 AM [employer] OPERATOR 07/03/2022 10:41 AM [employer] OPERATOR Narrative [facility] - 07/04/2022 12:12 PM [employer] OPERATOR Drug of Abuse screening is performed by immunoassay for medical purposes only. ??This is not to be used for Pain Management purposes. ??If Detected, confirmation testing will be performed for Amphetamines, Cocaine, Fentanyl, Methadone, Opiates, Oxycodone or Phencyclidine. Shanique Bazan MD LAB URINE ORDERABLES Anjana l Result Performing Organization Address [facility] Co de Phone Number [facility] [place] [address] * hCG, urine, qualitative (07/03/2022 10:30 AM [employer] OPERATOR) HCG, ur Negative Negative [facility] Urine 07/03/2022 10:3 0 AM [employer] OPERATOR 07/03/2022 10:41 AM [employer] OPERATOR us Jorge Degroot MD LAB URINE ORDERABLES Anjana l Result Performing Organization Address [facility] Co de Phone Number [facility] [place] [address] * POCT creatinine (07/03/2022 10:23 AM [employer] OPERATOR) Creatinine POC 0.7 0.4 - 1.0 mg/dL [facility] Blood 07/03/2022 10:2 3 AM [employer] OPERATOR 07/03/2022 10:23 AM [employer]ALT [employer] OPERATOR Yayo Patterson MD LAB POCT ORDERABLES - ISIDRO CE Final Result Performing Organization Address [facility] Co de Phone Number [facility] [place] [address] * Urinalysis reflex to microscopic and culture Urine (07/03/2022 10:16 AM [employer] OPERATOR) Color, ur Straw Yellow [facility] Clarity, ur Clear Clear [facility] Specific gravity, ur 1.014 1.003 - 1.030 [facility] pH, urine 7.5 [facility] Protein, ur ql Negative Negative [facility] Glucose, ur ql Negative Negative [facility] Ketones, ur Negative Negative [facility] Bilirubin, ur Negative Negative [facility] Blood, ur Negative Negative [facility] Urobilinogen, ur <2.0 <2.0 mg/dL [facility] Nitrite, ur Negative Negative [facility] Leukocyte esterase, ur Negative Negative [facility] UA reflex comment Reflex conditions for microscopic UA and culture not met. [facility] Urine 07/03/2022 10:1 6 AM [employer] OPERATOR 07/03/2022 10:22 AM [employer]ALT [employer]ANT OPERATOR Narrative [facility] - 07/03/2022 10:26 AM [employer] OPERATOR ?? Urine pH is affected by diet, medications, systemic acid-base disturbances, and renal tubular function. ??pH may affect urinary stone formation. ??For example, urine pH below 6.0 may help reduce the tendency for calcium phosphate stones and pH greater than 6.0 may reduce the tendency for uric acid stone formation. Source: Editorially. Last revised 06-30-2017 us Jorge Degroot MD LAB MICROBIOLOGY - GENERA L ORDERABLES Final Result [facility] [place] [address] * Vitamin B1 (07/03/2022 10:15 AM [employer] OPERATOR) Pathologist [facility] Thiamine (Vit B1) 92 70 - 180 nmol/L [facility] Comment: ADDITIONAL INFORMATION This test was developed and its performance characteristics determined by [facility] in a manner consistent with CLIA requirements. This test has not been cleared or approved by the U.S. Food and Drug Administration. Test Performed by: [facility] [address] [place] [address] Time Clock Mechanic: Juan Villagran M.D. Ph.D.; CLIA# [id number] Blood 07/03/2022 10:1 5 AM [employer] OPERATOR 07/03/2022 10:34 PM [employer]HALT PLANT OPERATOR us Ady Emanuel MD LAB BLOOD ORDERABLES Final R esult [facility] [place] [address] * (ABNORMAL) Vitamin D 25 hydroxy (07/03/2022 10:15 AM [employer] OPERATOR) Vitamin D 25-OH 17(L) 30 - 80 ng/mL [facility] Blood 07/03/2022 10:1 5 AM [employer] OPERATOR 07/03/2022 10:18 AM [employer]HALT PLANT OPERATOR Narrative [facility] - 07/03/2022 9:54 PM [employer]ALT PLANT OPERATOR AGES: -18 years - Sufficient: 20-100 ng/mL; Borderline: 10-20 ng/mL; Deficient: <10 ng/mL. ??Reference intervals pertain to males and females from through age 18. ??Intervals reflect consensus clinical decision limits derived from various reports including the 2011 [place] [employer] Report on calcium and vitamin D. ??Vitamin D concentrations may vary widely depending on ethnic background, geographic location, and the time of the year the sample was obtained. ??References: ??1. Blaise CL, Graciela NICHOLS. Prevention of Rickets and Vitamin D Deficiency in Infants, Children, and Adolescents. Pediatrics 2008;122:0172-6308. ??2. Luciano MESSER, Pam CL, Pierre AL, Cardoza HB, eds. Dietary Reference Intakes for Calcium and Vitamin D. [place] [employer]; National Academies Press:2011 ??3. Lisa PHU, Pasha J, and Dietzen DJ. Circulating Intact Parathyroid Hormone is Suppressed at 25-hydroxyvitamin D Concentrations greater than 25 nmol/L. J Pediatr Endocrinol Metab 2014;doi:10.1515/qcei-1230-3172. Last revised on 07/22/2017. Ady Emanuel MD LAB BLOOD ORDERABLES Final R esult Performing Organization Address [facility] Co de Phone Number [facility] [place] [address] * IgA (07/03/2022 10:15 AM [employer] OPERATOR) Immunoglobulin A 118.0 70.0 - 400.0 mg/dL [facility] Blood 07/03/2022 10:1 5 AM [employer] PLANT OPERATOR 07/03/2022 10:18 AM [employer]ALT PLANT OPERATOR Ady Emanuel MD LAB BLOOD ORDERABLES Final R esult Performing Organization Address [facility] de Phone Number [facility] [place] [address] * CRP (acute phase) (07/03/2022 10:15 AM [employer]ALT PL[employer] OPERATOR) CRP <0.5 <=10.0 mg/L [facility] Blood 07/03/2022 10:1 5 AM [employer] OPERATOR 07/03/2022 10:18 AM [employer]HALT [employer] OPERATOR Ady Emanuel MD LAB BLOOD ORDERABLES Final R esult Performing Organization Address [facility] de Phone Number [facility] [place] [address] * TSH reflex to free T4 (07/03/2022 10:15 AM [employer] OPERATOR) TSH 0.90 0.30 - 4.20 mcIUnit/mL [facility] Blood 07/03/2022 10:1 5 AM [employer] PLANT OPERATOR 07/03/2022 10:18 AM [employer]HALT PLANT OPERATOR us Ady Emanuel MD LAB BLOOD ORDERABLES Final R esult Performing Organization Address City/[facility]/ZIP Co de Phone Number [facility] [place] [address] * (ABNORMAL) Ferritin (07/03/2022 10:15 AM [employer] OPERATOR) Ferritin 170(H) 13 - 150 ng/mL [facility] Blood 07/03/2022 10:1 5 AM [employer] PLANT OPERATOR 07/03/2022 10:18 AM [employer]HALT PLANT OPERATOR us Ady Emanuel MD LAB BLOOD ORDERABLES Final R esult Performing Organization Address [facility] Co de Phone Number [facility] [place] [address] * Iron profile w/ IBC (07/03/2022 10:15 AM [employer] OPERATOR) Iron 76 35 - 145 mcg/dL [facility] TIBC 254 250 - 400 mcg/dL [facility] Transferrin saturation 30 20 - 50 % [facility] Blood 07/03/2022 10:1 5 AM [employer] OPERATOR 07/03/2022 10:18 AM [employer]HALT [employer]ANT OPERATOR us Ady Emanuel MD LAB BLOOD ORDERABLES Final R esult Performing Organization Address City/[facility] Co de Phone Number [facility] [place] [address] * (ABNORMAL) Vitamin B12 (07/03/2022 10:15 AM [employer] OPERATOR) Vitamin B12 1,748(H) 230 - 1,250 pg/mL [facility] Blood 07/03/2022 10:1 5 AM [employer] OPERATOR 07/03/2022 10:18 AM [employer]HALT PLANT OPERATOR us Ady Emanuel MD LAB BLOOD ORDERABLES Final R esult Performing Organization Address [facility] Co de Phone Number [facility] [place] [address] * eGFR (07/03/2022 10:15 AM [employer]HALT PL[employer] OPERATOR) eGFR >90 90 - 130 mL/min/1. 73 m2 [facility] Comment: Interpretive Data Reference Interval Normal [...] reviewed 2021. Blood 07/03/2022 10:1 5 AM [employer] OPERATOR 07/03/2022 10:18 AM [employer]HALT PLANT OPERATOR us Jorge Degroot MD LAB BLOOD ORDERABLES Anjana l Result Performing Organization Address [facility]/ZIP Co de Phone Number [facility] [place] [address] * Differential, auto (07/03/2022 10:15 AM [employer] OPERATOR) Neutrophil abs 1.9 1.7 - 6.5 K/cumm [facility] Imm gran abs 0.0 0.0 - 0.1 K/cumm [facility] Lymphocyte abs 1.2 0.8 - 3.3 K/cumm [facility] Monocyte abs 0.3 0.2 - 0.8 K/cumm [facility] Eosinophil abs 0.1 0.0 - 0.5 K/cumm [facility] Basophil abs 0.0 0.0 - 0.1 K/cumm [facility] Neutrophil pct 55.8 % [facility] Comment: Interpretive Data Percent cell count reference ranges are not reported, since discordance with absolute values may lead to misinterpretation of CBC data. Current Interpretive Data was last revised on 2017. Imm gran pct 0.3 % [facility] Comment: Interpretive Data Percent cell count reference ranges are not reported, since discordance with absolute values may lead to misinterpretation of CBC data. Current Interpretive Data was last revised on 2017. Lymphocyte pct 34.4 % [facility] Comment: Interpretive Data Percent cell count reference ranges are not reported, since discordance with absolute values may lead to misinterpretation of CBC data. Current Interpretive Data was last revised on 2017. Monocyte pct 7.4 % [facility] Comment: Interpretive Data Percent cell count reference ranges are not reported, since discordance with absolute values may lead to misinterpretation of CBC data. Current Interpretive Data was last revised on 2017. Eosinophil pct 1.5 % [facility] Comment: Interpretive Data Percent cell count reference ranges are not reported, since discordance with absolute values may lead to misinterpretation of CBC data. Current Interpretive Data was last revised on 2017. Basophil pct 0.6 % [facility] Comment: Interpretive Data Percent cell count reference ranges are not reported, since discordance with absolute values may lead to misinterpretation of CBC data. Current Interpretive Data was last revised on 2017. Blood 07/03/2022 10:1 5 AM [employer] OPERATOR 07/03/2022 10:17 AM [employer]HALT PLANT OPERATOR Jorge Degroot MD LAB BLOOD ORDERABLES Anjana l Result Performing Organization Address [facility] Co de Phone Number [facility] [place] [address] * Troponin I high-sensitivity series (baseline, 2hr, 4hr, 6hr) (07/03/2022 10:15 AM [employer]HALT PL[employer] OPERATOR) Pathologist [facility] Trop I hs <4 <=17 ng/L [facility] Comment: Interpretive Data For further hscTnI resources including the diagnostic algorithm and an aid in interpretation, copy and paste this link: https://bjhlab.testcatalog.org/show/hsTrop-[email or web address] Current Interpretive Data last revised 2019. Blood 07/03/2022 10:1 5 AM [employer] PL[employer] OPERATOR 07/03/2022 10:17 AM [employer]HALT PLANT OPERATOR Jorge Degroot MD LAB BLOOD ORDERABLES Anjana l Result Performing Organization Address [facility] Co de Phone Number [facility] [place] [address] * Phosphorus (07/03/2022 10:15 AM [employer]HALT PLANT OPERATOR) [facility] Phosphorus, pl 3.1 2.3 - 4.5 mg/dL [facility] Blood 07/03/2022 10:1 5 AM [employer] OPERATOR 07/03/2022 10:18 AM [employer]HALT [employer]ANT OPERATOR Jorge Degroot MD LAB BLOOD ORDERABLES Anjana l Result Performing Organization Address City/[facility]/ZIP Co de Phone Number [facility] [place] [address] * Magnesium (07/03/2022 10:15 AM [employer]HALT PL[employer] OPERATOR) [facility] Magnesium 1.9 1.4 - 2.5 mg/dL [facility] Blood 07/03/2022 10:1 5 AM [employer] OPERATOR 07/03/2022 10:18 AM [employer]HALT PLANT OPERATOR us Jorge Degroot MD LAB BLOOD ORDERABLES Anjana nathaly Result [facility] [place] [address] * Respiratory pathogen panel Nasopharyngeal (07/03/2022 10:15 AM [employer]HALT PLANT OPERATOR) [facility] Influenza A RNA Not Detected Not Detected [facility] Influenza B RNA Not Detected Not Detected [facility] RSV RNA Not Detected Not Detected [facility] COVID-19 RNA Not Detected Not Detected [facility] Coronavirus 229E RNA Not Detected Not Detected [facility] Coronavirus HKU1 RNA Not Detected Not Detected [facility] Coronavirus NL63 RNA Not Detected Not Detected [facility] Coronavirus OC43 RNA Not Detected Not Detected [facility] Adenovirus DNA Not Detected Not Detected [facility] Metapneumovirus RNA Not Detected Not Detected [facility] Rhinovirus/Enterov irus RNA Not Detected Not Detected [facility] Parainfluenza 1 RNA Not Detected Not Detected [facility] Parainfluenza 2 RNA Not Detected Not Detected [facility] Parainfluenza 3 RNA Not Detected Not Detected [facility] Parainfluenza 4 RNA Not Detected Not Detected [facility] B. pertussis DNA Not Detected Not Detected [facility] B. parapertussis DNA Not Detected Not Detected [facility] C. pneumoniae DNA Not Detected Not Detected [facility] M. pneumoniae DNA Not Detected Not Detected [facility] Nasopharyngeal 07/03/2022 10 :15 AM [employer] 07/03/2022 10:15 AM [employer] Narrative [facility] - 07/03/2022 11:06 AM [employer] Is the Patient experiencing symptoms consistent with COVID?->Yes Date of Symptom Onset->06/16/22 Reason for testing?->Bed placement or semi-private room Surveillance testing for transplant patient?->No ??Interpretive Data The [employer] FilmArray Respiratory Panel (RP2.1) assay is a [...] assay has FDA clearance for testing of DIRECTOR OF WORKFORCE DEVELOPMENT swabs. ??The performance of additional specimen types has been assessed by the performing laboratory. ??The performance characteristics of this assay have been determined by [facility] Molecular Infectious Disease Laboratory. Current interpretive data was last revised on 22. us Jorge Degroot MD LAB MICROBIOLOGY - GENERA L ORDERABLES Final Result [facility] [place] [address] * Lipase (07/03/2022 10:15 AM [employer]) Lipase 55 10 - 99 Units/L [facility] Blood 07/03/2022 10:1 5 AM [employer] 07/03/2022 10:18 AM [employer] us Jorge Degroot MD LAB BLOOD ORDERABLES Anjana l Result [facility] [place] [address] * (ABNORMAL) Comprehensive metabolic panel (07/03/2022 10:15 AM [employer]) Sodium 141 135 - 145 mmol/L [facility] Potassium, pl 4.0 3.3 - 4.9 mmol/L [facility] Chloride 103 97 - 110 mmol/L [facility] CO2 27 22 - 32 mmol/L [facility] Anion gap 11 2 - 15 mmol/L [facility] BUN 3(L) 8 - 25 mg/dL [facility] Creatinine 0.74 0.40 - 1.00 mg/dL [facility] Glucose 106 70 - 199 mg/dL [facility] Comment: Interpretive Data Fasting glucose >/= [...] 2017. Calcium 9.5 8.5 - 10.3 mg/dL [facility] Bilirubin, total 0.8 0.1 - 1.2 mg/dL [facility] Protein, pl 7.3 6.5 - 8.5 g/dL [facility] Albumin 4.5 3.5 - 5.0 g/dL [facility] Alk phos 48(L) 70 - 260 Units/L [facility] ALT 14 7 - 45 Units/L [facility] AST 23 10 - 45 Units/L [facility] Blood 07/03/2022 10:1 5 AM [employer] 07/03/2022 10:18 AM [employer] Jorge Degroot MD LAB BLOOD ORDERABLES Anjana l Result Performing Organization Address City/[facility]/ZIP Co de Phone Number [facility] [place] [address] * (ABNORMAL) CBC with auto differential (07/03/2022 10:15 AM [employer]) [facility] WBC 3.4(L) 3.8 - 9.9 K/cumm [facility] Hgb 12.4 11.9 - 15.5 g/dL [facility] Hct 37.3 35.6 - 45.5 % [facility] Plt 217 150 - 400 K/cumm [facility] MPV 10.6 9.1 - 12.3 fL [facility] RBC 4.53 3.90 - 5.20 M/cumm [facility] MCV 82.3 81.3 - 96.4 fL [facility] MCH 27.4 27.1 - 33.3 pg [facility] MCHC 33.2 32.3 - 35.7 g/dL [facility] RDW CV 13.3 11.1 - 14.9 % [facility] RDW SD 40.1 35.7 - 48.1 fL [facility] NRBC abs 0.00 0.00 - 0.01 K/cumm [facility] Blood 07/03/2022 10:1 5 AM [employer] 07/03/2022 10:17 AM [employer] Jorge Degroot MD LAB BLOOD ORDERABLES Anjana l Result Performing Organization Address City/[facility]/ZIP Co de Phone Number [facility] [place] [address] * Calcium, ionized (07/03/2022 9:42 AM [employer]) Calcium, Ionized 4.74 4.50 - 5.10 mg/dL [facility] Blood 07/03/2022 9:42 AM [employer] 07/03/2022 10:08 AM [employer] us Jorge Degroot MD LAB BLOOD ORDERABLES Anjana nathaly Result [facility] [place] [address] * ECG 12-LEAD (07/03/2022 8:25 AM [employer]) Narrative [facility] - 07/03/2022 8:25 AM [employer] Ish Espinal MD ? 07/03/2022 ??8:25 AM [...] Patterson MD ECG ORDERABLES Final Resu lt [facility] documented in this encounter Visit Diagnoses [...] Indications: Fever, PainIndications:Fever,Pain Given 07/12/2022 9:06 PM [employer] 1,000 mg Given 07/11/2022 3:22 AM [employer] 1,000 mg Given 07/06/2022 11:32 AM [employer] 1,000 mg calcium carbonate (TUMS) chewable tablet 1,000 mg 1,000 mg (24.9 mg/kg = 400 mg of elemental calcium), oral, Every 6 hours PRN, indigestion, heartburn, Starting on 07/05/22 at 0052 Given 07/06/2022 11:33 AM [employer] 1,000 mg Given 07/05/2022 1:34 AM [employer] 1,000 mg diphenhydrAMINE (BENADRYL) injection 50 mg 50 mg (1.25 mg/kg), intravenous, Administer over 2 Minutes, Every 6 hours PRN, other, spasm, Starting on Tue07/06/22 at 1948, Indications: spasms or itchingIndications:spasms or itching Given 07/06/2022 8:12 PM [employer] 50 mg enoxaparin (LOVENOX) syringe 30 mg 30 mg (0.713 mg/kg), subcutaneous, Daily (for enoxaparin), First dose on 07/03/22 at 2145, Indications: Deep Vein Thrombosis PreventionIndications:Deep Vein Thrombosis Prevention Given 07/03/2022 9:50 PM [employer] 30 mg Left Lower Abdomen ergocalciferol (VITAMIN D) capsule 50,000 Units 50,000 Units, oral, Weekly, First dose on 07/04/22 at 0900, For 8 doses, Do not crush, break, or open. Given 07/04/2022 9:50 AM [employer] 50,000 Units famotidine (PEPCID) injection 10 mg 10 mg (0.249 mg/kg), intravenous, Administer over 2 Minutes, Every 12 hours, First dose on 07/11/22 at 2330, IV Push over at least 2 minutes Given 07/13/2022 11:16 AM [employer] 10 mg Given 07/12/2022 11:48 PM [employer] 10 mg Given 07/12/2022 2:52 PM [employer] 10 mg folic acid (FOLVITE) tablet 1 mg 1 mg (0.0238 mg/kg), oral, Daily, First dose on 07/03/22 at 2145 Given 07/13/2022 9:34 AM [employer] 1 mg Given 07/12/2022 8:21 AM [employer] 1 mg Given 07/10/2022 10:35 AM [employer] 1 mg lidocaine (GLYDO) 2 % jelly 100 mg 100 mg (2.49 mg/kg = 5 mL), topical, 2 times daily PRN, other, for NG tube discomfort, Starting on Tue07/12/22 at 1517 Given 07/12/2022 5:49 PM [employer] 100 mg lidocaine (LIDODERM) 5 % patch 1 patch 1 patch, transdermal, Administer over 12 Hours, Daily, First dose on 07/04/22 at 0900, Do not cover the holes on the top side of the patch., Apply to affected area: chest Medication Applied 07/13/2022 9:33 AM [employer] 1 patch Chest Medication Applied 07/12/2022 8:22 AM [employer] 1 patch Chest Medication Applied 07/11/2022 9:06 AM [employer] 1 patch Other (Comment) LORazepam (ATIVAN) injection 0.5 mg 0.5 mg (0.0125 mg/kg), intravenous, Every 6 hours PRN, other, nausea/vomiting second line, Starting on Tue07/09/22 at 1521, For IV administration, dilute with equal volume of 0.9% sodium chloride to a final concentration of 1 mg/mL. Do not exceed a rate of 2 mg/minute Given 07/11/2022 9:49 AM [employer] 0.5 mg Given 07/10/2022 4:24 PM [employer] 0.5 mg Given 07/09/2022 7:09 PM [employer] 0.5 mg multivitamin with folic acid 400 mcg tablet 1 tablet 1 tablet, oral, Daily, First dose on 07/04/22 at 0900 Given 07/13/2022 9:34 AM [employer] 1 tablet Given 07/12/2022 8:22 AM [employer] 1 tablet Given 07/10/2022 10:35 AM [employer] 1 tablet ondansetron (ZOFRAN) injection 4 mg 4 mg (0.0998 mg/kg), intravenous, Administer over 2 Minutes, Every 8 hours, First dose (after last modification) on [place] 07/08/22 at 1530 Given 07/13/2022 9:33 AM [employer] 4 mg Given 07/12/2022 11:49 PM [employer] 4 mg Given 07/12/2022 2:52 PM [employer] 4 mg pantoprazole (PROTONIX) 4 mg/mL injection 40 mg 40 mg (0.95 mg/kg), intravenous, Administer over 2 Minutes, Daily, First dose on 07/03/22 at 2230, For IV Push administration for adults- 40 mg vial: add 10 mL of sodium chloride 0.9% to achieve a final concentration of 4 mg/mL, Indications: Treatment of Non-Bleeding Gastric DisorderIndications:Treatment of Non-Bleeding Gastric Disorder Given 07/13/2022 9:33 AM [employer] 40 mg Given 07/12/2022 8:21 AM [employer] 40 mg Given 07/11/2022 8:59 AM [employer] 40 mg phenoL (CHLORASEPTIC) 1.4 % oral spray 1 spray 1 spray, mouth/throat, Every 4 hours PRN, sore throat, Starting on 07/12/22 at 2249 Given 07/13/2022 7:29 AM [employer] 1 spray Given 07/13/2022 3:21 AM [employer] 1 spray polyethylene glycol (MIRALAX) packet 17 g 17 g, oral, Daily, First dose on 07/11/22 at 1415, Indications: constipationIndications:constipation Given 07/13/2022 9:33 AM [employer] 17 g Given 07/12/2022 8:21 AM [employer] 17 g Given 07/11/2022 3:32 PM [employer] 17 g ramelteon (ROZEREM) tablet 8 mg 8 mg (0.19 mg/kg), oral, Nightly PRN, sleep, Starting on 07/03/22 at 2102, Indications: Sleep-Onset InsomniaIndications:Slee p-Onset Insomnia Given 07/03/2022 9:55 PM [employer] 8 mg scopolamine patch 72 hour 1 patch 1 patch, transdermal, Administer over 72 Hours, Every 72 hours, First dose on 07/05/22 at 1030 Medication Applied 07/08/2022 10:19 AM [employer] 1 patch Behind Left Ear Medication Applied 07/05/2022 1:44 PM [employer] 1 patch Behind Left Ear senna 1.76 mg/mL syrup 8.8 mg 8.8 mg (0.219 mg/kg), oral, 2 times daily PRN, constipation, Starting on 07/11/22 at 1333 Given 07/11/2022 4:06 PM [employer] 8.8 mg traMADoL (ULTRAM) tablet 50 mg 50 mg (1.25 mg/kg), oral, 4 times daily PRN, 2nd line for pain, Starting on Tue07/07/22 at 1536 Given 07/08/2022 4:55 PM [employer] 50 mg documented in this encounter Discontinued [...] Recently Administered Medications Times are shown in [employer]. 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
--- OUTSIDE RECORDS SUMMARY | 2024-07-02 08:08 | XMS_ITS | Encounter Summary ---
Author Organization [facility] Address [address] [place] [address] Care Team Providers Care Store Clerk Checker Name Role Phone No, Physician Primary Care Provider [phone] No, Physician Primary Care Provider [phone] Rita Lynn MD Primary Care Provider [phone] No, Physician Unavailable Encounter Details Date Type Department Care Team (Late st Contact Info) Description 06/30/2022 Orders Only [facility] Cardiology [address] [place] [address] Jabier Adame MD [facility] [address] Social History Tobacco Use Types Packs/Day Years Used Date Smoking Tobacco: Never Alcohol Use Standard Drinks/Week Comments Never 0 (1 standard drink = 0.6 oz pur e alcohol) Comments No Sex and Gender Information Value Date Recorded Sex Assigned at Not on file Legal Sex Female 7:29 PM [employer] Gender Identity Not on file Sexual Orientation Not on file documented as of this encounter Plan of Treatment Not on file documented as of this encounter Procedures Procedure Name Priority Date/Time Associated Diagnosis Comments CARDIOLOGY DOCUMENT SCAN Routine 06/30/2022 documented in this encounter Results * Cardiology Document Scan (06/30/2022) Anatomical Region Laterality Modality Other Jaiber Adame MD CV CARDIAC SERVICES [facility] DURES Final Result documented in this encounter Visit Diagnoses Not on filedocumented in this encounter Additional Health Concerns Infection Onset Date Last Indicated Resolved Time COVID: Suspected 07/03/2022 07/03/2022 07/03/2022 11:07 AM [employer] documented as of this encounter Care Teams Store Clerk Checker Relationship Specialty Start Date End Date No, Physician PCP - General 02/17/22 07/02/22 No, Physician PCP - General 07/03/22 07/03/22 Rita Lynn MD [address] [place] [id number] PCP - General Pediatrics 07/04/22 No, Physician 07/03/22 documented as of this encounter
--- OUTSIDE RECORDS SUMMARY | 2024-07-02 08:08 | XMS_ITS | Encounter Summary ---
Author Organization [facility] Healthcare Address [address] [place] [address] Care Team Providers Care Tip Out Worker Name Role Phone No, Physician Primary Care Provider [phone] Rita Lynn MD Primary Care Provider [phone] No, Physician Unavailable Reason for Visit * Reason Comments Chest Pain * Auth/Cert Specialty Diagnoses / Procedures Referred By Jeannine t Referred To Contact Diagnoses Chest pain, unspecified type Severely underweight adult Procedures N/A Referral ID Status Reason Start Date Expiration Date Visits Re quested Visits Authorized [id number] 1 1 Encounter Details Date Type Department Care Team (Latest Contact Info) Description 07/03/2022 8:28 AM PROGRAM ANALYST - 07/13/2022 1:03 PM PROGRAM ANALYST Hospital Encounter [facility] [address] [place] [address] Yayo Patterson MD [address] [place] [address] Ady Emanuel MD [address] [place] [address] Brent Abbott MD [address] [place] [address] Shanique Bazan MD [address] [place] [address] Grover Spaulding MD [address] [place] [address] Gita Duarte MD [address] [place] [address] Chest pain, unspecified type (Primary Dx); Severely [...] on file Legal Sex Female 7:29 PM PROGRAM ANALYST Gender Identity Not on file Sexual Orientation Not on file documented as of this encounter Last Filed Vital Signs Vital Sign Reading Time Taken Comments Blood Pressure 110/77 07/13/2022 9:35 AM PROGRAM ANALYST Pulse 93 07/13/2022 9:35 AM PROGRAM ANALYST Temperature 36.6 ??C (97.9 ??F) 07/13/2022 9:35 AM CS T Respiratory Rate 16 07/13/2022 9:35 AM PROGRAM ANALYST Oxygen Saturation 100% 07/13/2022 9:35 AM PROGRAM ANALYST Inhaled Oxygen Concentration - - Weight 40.2 kg (88 lb 11.2 oz) 07/10/2022 3:12 A M PROGRAM ANALYST Height 172.7 cm (5' 8 ) 07/03/2022 7:45 PM PROGRAM ANALYST Body Mass Index 13.49 07/03/2022 7:45 PM PROGRAM ANALYST Body Mass Index Percentile 0.00% 07/10/2022 3:1 2 AM PROGRAM ANALYST Growth Chart: CDC (Girls, 2- 20 Years) documented in this encounter Discharge Summaries * Gita Duarte MD - 07/13/2022 1:03 PM CST Inpatient Discharge Summary BRIEF OVERVIEW Admitting Provider: Yayo Patterson MD Discharge Provider: No att. providers found Primary Care Physician at Discharge: Rita Lynn MD [phone] Admission Date: 07/03/2022 Discharge Date: 07/13/2022 Admission Location: [facility] Problems/Diagnoses: Principal Problem: Nausea & vomiting [...] hematochezia, urinary symptoms. She originally presented to [facility], though left AMA on 07/01 due to perceived poor care - subsequently presenting to [facility] on the same day with unremarkable [...] MD Specialty: Pediatrics Relationship: PCP - General [address] [address] Next Steps: Follow up RAM ANALYST documented in this encounter Discharge Instructions * Discharge Instructions* Gita Duarte MD - 07/13/2022 12:33 PM PROGRAM ANALYST Take zofran (ondansetron) 30 minutes before each meal to help prevent nausea. You will also be prescribed a scopolamine patch which you will need to switch out every 3 days. Take miralax once a day for your constipation. RAM ANALYST RAM ANALYST * Discharge Instr - Other Orders* Shelby Griggs RN - 07/09/2022 4:29 PM PROGRAM ANALYST This is the earliest available follow up appointment with your PCP. Please bring this discharge paperwork, a list of home medications, your insurance card and photo ID to your appointment. Please arrive 15 minutes prior to your appointment and make sure you wear a mask. If you are unable to keep this appointment, it is very important you call to reschedule. RAM ANALYST * Attachments The following attachments cannot be sent through Care Everywhere. * Cyclic Vomiting Syndrome in Children (Tennis Centre Manager) ([place]) documented in this encounter Medications [...] Age: 17 y.o. female Admit: 07/03/2022 Bed: [place] [id number]/[id number] Subjective Interval History: Reports no n/v over [...] BUE & BLE strength. Intact FNF & lthe-ck-ilpv, normal gait Psych: Appropriate mood/affect. No SI/HI. [...] & Plan Hold supplementation Severe malnutrition (CMS/HCC) ([facility]) Assessment & Plan Patient with chronically low [...] it only happens after vomiting or gagging. RAM ANALYST * Vida Stevens RN - 07/13/2022 12:51 [...] No additional needs noted at this time. RAM ANALYST * Vida Stevens RN - 07/13/2022 12:47 PM CST 07/05/22 1125 Communications Important Message from Medicare notice given to patient? Not Applicable AYALA letter given? Not Applicable Patient choice (Home Health/Hospice) list given to patient/sales representative aircraft? Not Applicable [facility] Facility list given to patient/sales representative aircraft? Not Applicable Fiduciary Responsibility Patient/Designated decision maker was informed of [facility] fiduciary relationship as necessary RAM ANALYST * Grover Spaulding MD - 07/12/2022 1:50 PM CST Daily Progress Note Division of Hospital Medicine Name: Isabel Churchill Today: July 12, 2022 : 2005 Age: 17 y.o. female Admit: 07/03/2022 Bed: [id number] Subjective Interval History: - tolerating tube feeds [...] & Plan Hold supplementation Severe malnutrition (CMS/HCC) ([facility]) Assessment & Plan Patient with chronically low [...] and keeps food down. Grover Spaulding MD RAM ANALYST * Grover Spaulding MD - 07/11/2022 10:31 AM CST Daily Progress Note Division of Hospital Medicine Name: Isabel Churchill Today: July 11, 2022 : 2005 Age: 17 y.o. female Admit: 07/03/2022 Bed: [id number] Subjective Interval History: - still having episodes [...] & Plan Hold supplementation Severe malnutrition (CMS/HCC) ([facility]) Assessment & Plan Patient with chronically low [...] evaluation of eating disorder Grover Spaulding MD RAM ANALYST RAM ANALYST * Grover Spaulding MD - 07/10/2022 9:49 AM CST Daily Progress Note Division of Hospital Medicine Name: Isabel Churchill Today: July 10, 2022 : 2005 Age: 17 y.o. female Admit: 07/03/2022 Bed: [id number] Subjective Interval History: - patient is feeling [...] & Plan Hold supplementation Severe malnutrition (CMS/HCC) ([facility]) Assessment & Plan Patient with chronically low [...] and esophagus are unremakable Grover Spaulding MD RAM ANALYST * Grover Spaulding MD - 07/09/2022 3:33 PM CST Daily Progress Note Division of Hospital Medicine Name: Isabel Churchill Today: July 09, 2022 : 2005 Age: 17 y.o. female Admit: 07/03/2022 Bed: [place] [address]/[place] [address] Subjective Interval History: - episode of left [...] and esophagus are unremakable Grover Spaulding MD RAM ANALYST * Angelica Barnes RN - 07/09/2022 11:58 AM CST Ms. Churchill had wolof toast for breakfast with no complaint of [...] signs of distress. Will continue to monitor RAM ANALYST * Grover Spaulding MD - 07/08/2022 4:39 PM CST Daily Progress Note Division of Hospital Medicine Name: Isabel Churchill Today: July 08, 2022 : 2005 Age: 17 y.o. female Admit: 07/03/2022 Bed: [id number] Subjective Interval History: - pathology from esophagus, [...] Extended EEG Report Patient Name: Isabel Churchill [facility] Medical Record Number (MRN): [id number] [facility] Record: No Soarian MRN Date [...] 32 channel EEG recording acquired on a Digify EEG-1200 acquisition system. Scalp electrodes were placed [...] and esophagus are unremakable Grover Spaulding MD RAM ANALYST * Amparo Carmen, PT - 07/08/2022 3:44 [...] home Prior Function Prior Function Level of [place]: Independent functional transfers, Independent with ambulation Lives [...] and was starting to feel nauseous. RN Mhoini del real PT Goals Multi-Disciplinary Problems (from Physical Therapy) Active Problems Not on file RAM ANALYST * Kelly Fam, OT - 07/08/2022 3:40 PM CST Occupational Therapy 07/08/22 7359 General Subjective Comment Occupational therapy orders received and chart reviewed. Patient educated on purpose of OT consult and benefits of therapy. Patient voiced understanding and states she's been performing all self care and mobility independently since admission and denies any concerns to warrant OTassessment. Will complete orders. MD notified. OT Missed Visit Reason Patient declined RAM ANALYST * Grover Spaulding MD - 07/07/2022 4:03 PM CST Daily Progress Note Division of Hospital Medicine Name: Isabel Churchill Today: July 07, 2022 : 2005 Age: 17 y.o. female Admit: 07/03/2022 Bed: [id number] Subjective Interval History: -EGD was done today [...] Extended EEG Report Patient Name: Isabel Churchill [facility] Medical Record Number (MRN): [id number] [facility] Record: Moraima Mascorro MRN Date [...] 32 channel EEG recording acquired on a Digify EEG-1200 acquisition system. Scalp electrodes were placed [...] & Plan Hold supplementation Severe malnutrition (CMS/HCC) ([facility]) Assessment & Plan Patient with chronically low [...] from stomach and esophagus. Grover Spaulding MD RAM ANALYST * Anna Feliciano, RD - 07/07/2022 2:10 [...] hematochezia, urinary symptoms. She originally presented to [facility], though left AMA on 07/01 due to perceived poor care - subsequently presenting to [facility] on the same day with unremarkable [...] Diet Clear Liquid Diet effective now Question: ([facility]) Diet type Answer: Clear Liquid 07/07/22 1327 [...] Weight changes, Electrolyte changes Anna Feliciano RD [phone] * Jamal Claros 07/07/2022 11:40 AM CST [...] visit Support Referral From Nurse Referral To Tobacco Baler Outcomes and Progress Demonstrating care and respect Achieved Interventions Interventions Offer emotional support Plan Future Plan Tobacco Baler will make a follow-up visit. RAM ANALYST * Kati Hazel, PT - 07/07/2022 11:00 AM CST Physical Therapy 07/07/22 1100 General PT Missed Visit Reason Procedure/testing/appointment;Unavailable Other Comments Other PT Comments In AM Pt. declined; awaiting endoscopy- asked PT to return later. PM pt. showering. Per RN pt. is mobilizing independently in room RAM ANALYST * Grvoer Spaulding MD - 07/06/2022 4:11 PM CST Daily Progress Note Division of Hospital Medicine Name: Isabel Churchill Today: July 07, 2022 : 2005 Age: 17 y.o. female Admit: 07/03/2022 Bed: [id number] Subjective Interval History: - persistent episodes of [...] Extended EEG Report Patient Name: Isabel Churchill [facility] Medical Record Number (MRN): [id number] [facility] Record: No Sotate MRN Date [...] 32 channel EEG recording acquired on a Digify EEG-1200 acquisition system. Scalp electrodes were placed [...] & Plan Hold supplementation Severe malnutrition (CMS/HCC) ([facility]) Assessment & Plan Patient with chronically low [...] from stomach and esophagus. Grover Spaulding MD RAM ANALYST * Amparo Carmen, PT - 07/05/2022 3:36 PM CST Physical Therapy Cancel 07/05/22 5706 General PT Missed Visit Reason Patient declined (pt declined, not giving a real reason as to why; denies nausea; states she is walking around her room with her grandmother) RAM ANALYST * Rosmery Esqueda, RN TRIAGE - 07/05/2022 11:25 AM CST CM Initial [...] Healthcare Prescription Coverage: yes Pharmacy: [facility] [place] Primary Care Provider: verified with patient Rita Lynn MD Prior to Admission: Primary Caregiver: Self Who does the patient or legal guardian want to receive education instruction and discharge plans for after care assistance?: Name Caregiver Name: Tony Churchill Relationship to patient: mother Support System: Family members Support system contact info (name, phone, availablity): Zee Keys (grandmother) [phone] Home Care Services: No Durable Medical Equipment: [...] Collaboration with patient, MD, direct care nurse, Scientific Diver, and other members of the health care team to assure needed interventions completed. 2. Return patient to optimal level of self-care post discharge. 3. Planimeter Operator will follow for Discharge Planning - interventions [...] with the aftercare plan. Rosmery Esqueda Float Planimeter Operator [phone] For emergency needs after 4:30 pm, please call the postbed stitcher [phone]. For weekend/holiday needs from 8:00a.m. - 4:30p.m., please call the Weekend Planimeter Operator . RAM ANALYST * Shanique Bazan MD - 07/05/2022 10:25 AM CST Daily Progress Note Division of Hospital Medicine Name: Isabel Churchill Today: July 05, 2022 : 2005 Age: 17 y.o. female Admit: 07/03/2022 Bed: [place] [address]/[id number] Subjective Chief complaint: nausea Interval History: persistent [...] 75 mL/hr, Last Rate: 75 mL/hr (07/05/22 1816) PRN: ??? acetaminophen ??? baclofen ??? calcium [...] x8w and repeat level Severe malnutrition (CMS/HCC) ([facility]) Assessment & Plan Patient with chronically low [...] - Trial lidocaine patch, tylenol - PT/OT RAM ANALYST * Shanique Bazan MD - 07/04/2022 11:53 AM CST Daily Progress Note Division of Hospital Medicine Name: Isabel Churchill Today: July 04, 2022 : 2005 Age: 17 y.o. female Admit: 07/03/2022 Bed: [place] [address]/[place] [address] Subjective Chief complaint: vomiting, muscle twitching/spasm Interval [...] - Trial lidocaine patch, tylenol - PT/OT RAM ANALYST documented in this encounter H&P Notes * [...] hematochezia, urinary symptoms. She originally presented to [facility], though left AMA on 07/01 due to perceived poor care - subsequently presenting to [facility] on the same day with unremarkable [...] have reviewed and summarized prior records in [facility], [facility], and [facility] Everywhere. History reviewed. No pertinent past medical [...] tylenol - PT/OT Asad Marquis MD Hospitalist RAM ANALYST documented in this encounter Procedure Notes * Brittnee Babb MD - 07/07/2022 11:25 AM CSTAssociated Order(s): EGD GI ENDOSCOPY [facility] Patient Name: Isabel Churchill Procedure Date: 07/07/2022 11:25 AM Date of : 2005 Admit Type: Inpatient Age: 17 Gender: Female Attending MD: Brittnee Babb M.D. Room: [facility] ENDOSCOPY ROOM 9 Note Status: Finalized [...] anesthesia care under the supervision of a SANDBLASTER PAINT SPRAYER was determined to be medically necessary for this procedure based on review of the patient's medical history, medications, and prior anesthesia history. The benefits, risks, and alternatives to the procedure and sedation were discussed and informed consent was obtained. The scope was passed under direct vision. The GIF [id number] endoscope was introduced through the mouth, and [...] the days following this procedure please call [phone]. After hours and evenings please call [phone] and speak to the GI fellow operations expert. Please tell the fellow that Dr. Babbdid [...] On: 07/07/2022 11:25 AM Recognized by the [place] [employer] for promoting quality in endoscopy RAM ANALYST documented in this encounter Consult Notes * [...] her mother, Miguel Churchill, was contacted at [phone] with the patient'sverbal permission - review of the EMR, including the 2nd [facility] chart under - [facility] website- no results GUARDIANSHIP: No [...] she is tolerating TF. 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 Hobbies: planning to run [...] cause recurrent GI symptoms. 3. Continued weight adventism is per the primary team. No specific eating disorder treatment is indicated at this time. Thank you for this consultation. Psychiatry will sign off now. For questions or concerns during business hours, please contact the Psych Consults B provider signed in to [employer]. For urgent issues afterhours, please call the psych consult pager. Belkis Bojorquez APRN, PMHNP-BC Cosigned by Farooq Elizalde MD at 07/13/2022 1:41 PM PROGRAM ANALYST RAM ANALYST RAM ANALYST * Gretta Bowers MD - 07/12/2022 11:41 [...] Keara Wild MD at 07/12/2022 5:10 PM PROGRAM ANALYST RAM ANALYST RAM ANALYST Associated attestation - Keara Wild MD - 07/12/2022 5:10 PM PROGRAM ANALYST I have seen and examined the patient [...] hematochezia, urinary symptoms. She originally presented to [facility], though left AMA on 07/01 due to perceived poor care - subsequently presenting to [facility] on the same day with unremarkable [...] Adult Diet Regular Diet effective now Question: ([facility]) Diet type Answer: Regular 07/09/22 0833 07/05/22 [...] changes, Electrolyte changes Rosmery Fuentes MS RDN, [facility], [place] [phone] RAM ANALYST * Anna Feliciano RD - 07/05/2022 2:52 [...] hematochezia, urinary symptoms. She originally presented to [facility], though left AMA on 07/01 due to perceived poor care - subsequently presenting to [facility] on the same day with unremarkable [...] Soft Diet effective now Question Answer Comment ([facility]) Diet type Restricted Modified Consistency: Mechanical Soft [...] prior to 3 weeks ago. Pt enjoys [employer]. Last BM 3 days ago. Labs: BMP, [...] Weight changes, Electrolyte changes Anna Feliciano RD [phone] RAM ANALYST * Lucius Nguyen MD - 07/05/2022 10:28 [...] marijuana daily. The patient originally presented to [facility] but left AMA on 07/01 due to perceived poor care, subsequently presented to [facility] in same-day with unremarkable labs and [...] note, the patient presented in 02/26/2021 to [facility] with intermittent epigastric abdominal pain [...] Rad Talley MD at 07/06/2022 12:22 AM PROGRAM ANALYST RAM ANALYST RAM ANALYST Associated attestation - Rad Talley MD - 07/06/2022 12:22 AM PROGRAM ANALYST I have seen and examined the patient [...] ramelteon, 8 mg, 8 mg at 07/03/22 3064 REVIEW OF SYSTEMS A complete review of [...] the interim, please contact neurology consults at [phone] (senior) and specify that this consult was staffed with Consult Team B. Ayla Iverson MD PGY-1 Addendum: On rounds, patient noted to have increased tone in LUE and LLE. Also complaining of intermittently blurred vision. Would additionally recommend Brain MRI WWO to evaluate these visual issues. Cosigned by Zain Schwab MD at 07/04/2022 10:31 PM PROGRAM ANALYST RAM ANALYST RAM ANALYST RAM ANALYST Associated attestation - Zain Schwab MD - 07/04/2022 10:31 PM PROGRAM ANALYST Attending Documentation: I have seen and examined [...] on to day team) Notification Time 0634 RAM ANALYST * Filomena Orozco RN - 07/07/2022 2:00 PM CST Pt refused post procedure VS intervals. RAM ANALYST * Bridgette Santiago RN - 07/06/2022 11:23 PM CST 07/06/22 2329 Notification Reason for Communication Status update (No relief with Zofran. Plan to give Ativan) Name of Person Notified Hospitalist Role of Person Notified Resident Method of Communication Call Response No new orders Notification Time 2329 RAM ANALYST * Bridgette Santiago RN - 07/06/2022 10:15 [...] and a 2nd dose Zofran was given. RAM ANALYST RAM ANALYST * Bridgette Santiago RN - 07/06/2022 8:00 PM CST 07/06/221999 Notification Reason for Communication Status update (patient c/o itchiness at iv insertion site.To add itching as indication for benadryl) Name of Person Notified Hospitalist Role of Person Notified Resident Method of Communication Call Response See orders Notification Time 1999 RAM ANALYST documented in this encounter ED Notes * [...] intermittent symptoms, has reportedly been seen at [facility], [facility], [facility] and worked up and discharged [...] review is significant for AMA discharge from [facility] a few days ago secondary to perceived poor care. Has had intermittent fevers, chills. Denies diarrhea and dysuria. Denies weight loss but review of records also significant for about 12lbs of weight loss over last few months. She does not take ietq-lch-iebvkjw control, no prior intra-abdominal surgeries. Denies drug use alcohol and tobacco. No known allergies. Family history significant for multiple members with hypertension diabetes. Mom with ovarian cancer. Maternal grandfather with prostate cancer. Maternal grandmother with CO at age 89. No sudden cardiac . Per chart review: 05/01/2023 from [facility] ED: Chief Complaint : Vomiting and Abdominal Pain HPI : Isabel Churchill is a 17-year-old female who presents for evaluation of worsening abdominal pain with nausea vomiting over the past 3 weeks. Patient did leave AMA from [facility] today as shewas concerned with [...] person, place, and time. Psychiatric: Comments: Tearful [facility] Medical Decision Making 17-year-old female presenting with 3 weeks of multiple complaints. Frail, concern for recent weightloss and now BMI 13. Has been worked up at multiple emergency rooms and admitted to [facility] with recent AMA discharge. Differential at this [...] unusual for an 17 yo to have ACS/CO, though is possible. Also consider biliary colic, pancreatitis, colitis, inflammatory bowel disease. Will check labs, get CT abdomen/pelvis, hydrate, assess for metabolic abnormality due to poor PO intake, check HCG to r/o . By: Yayo Patterson MD Time: 07/03 928 Comment: Reviewed records from 06/18 at [facility], weight was listed as 46 kg at [...] Yayo Patterson MD at 07/11/2022 3:03 PM PROGRAM ANALYST RAM ANALYST RAM ANALYST Associated attestation - Yayo Patterson MD - 07/11/2022 3:03 PM PROGRAM ANALYST I have seen and examined the patient on 07/03/2022. I agree with the findings and plan of care as documented in the resident's note. * Mirta Barnett RN - 07/03/2022 8:28 AM CST Bed: ED1-10 Expected date: Expected time: Means of arrival: Comments: Nandini Churchill Arlene Elizabeth, RN 07/03/22 0828 RAM ANALYST * Mirta Barnett RN - 07/03/2022 8:06 AM CST Pt comes with c/o chest pain that started 3 weeks ago and has gotten worse today. Pt also endorsingjaw pain that started today. Pt tearful in triage stating that she has been seen at multiple hospitals. Pt states nothing makes the chest pain better or worse RAM ANALYST documented in this encounter Miscellaneous Notes * [...] please call the GI Fellow General Call [facility] phone number available on [employer]. Ifthe patient has been discharged, please call the gastroenterology appointments line at [phone] for questions regarding clinic/procedures follow up. Heriberto Virgen MD Gastroenterology Fellow Cosigned by Keara Wild MD at 07/14/2022 8:23 AM PROGRAM ANALYST RAM ANALYST RAM ANALYST * Subjective & Objective - Gita Duarte MD - 07/13/2022 1:03 PM CST Daily Progress Note Division of Hospital Medicine Name: Isabel Churchill Today: July 13, 2022 : 2005 Age: 17 y.o. female Admit: 07/03/2022 Bed: [id number] Subjective Interval History: Reports no n/v over [...] BUE & BLE strength. Intact FNF & pord-cy-ktne, normal gait Psych: Appropriate mood/affect. No SI/HI. [...] this written report and agrees with it. RAM ANALYST * Plan of Care - Rebecca Avila RN - 07/12/2022 5:43 PM CST Goals: Clinical Goals for the Shift: ASSESS, VITALS,MEDS Summary: Problem: Nutritional: Goal: Dietary intake will improve Outcome: Progressing Goal: Ability to maintain a balanced intake and output will improve Outcome: Progressing RAM ANALYST * Plan of Care - Angelica Barnes RN - 07/11/2022 4:12 PM CST Goals: Clinical Goals for the Shift: monitor pain and nausea Summary: Problem: Nutritional: Goal: Dietary intake will improve Outcome: Progressing Goal: Ability to maintain a balanced intake and output will improve Outcome: Progressing RAM ANALYST * Plan of Care - Alyssa Khan RN - 07/11/2022 4:09 PM CST Weekend CM Note: Per medical team, Pt is not medically ready for discharge today. Please call covering weekend CM for any needs. RAM ANALYST * Plan of Care - Angelica Barnes [...] 1004 by Angelica Barnes RN Outcome: Progressing RAM ANALYST * Plan of Care - Angelica Barnes [...] of discharge needs will improve Outcome: Progressing RAM ANALYST * Plan of Care - Shelby Griggs [...] assistance, please check the treatment team in [facility] for the assigned briefcase sewer or contact the weekend Case Management phone, RAM ANALYST * Medical Student - Mary Kate Hillman - 07/09/2022 11:53 AM CST Daily Progress Note Division of Hospital Medicine Name: Isabel Churchill Today: July 09, 2022 : 2005 Age: 17 y.o. female Admit: 07/03/2022 Bed: [place] [address]/[place] [address] Subjective Chief complaint: nausea Interval History: Pt [...] Extended EEG Report Patient Name: Isabel Churchill [facility] Medical Record Number (MRN): [id number] [facility] Record: No Soarian MRN Date [...] 32 channel EEG recording acquired on a Digify EEG-1200 acquisition system. Scalp electrodes were placed [...] regarding a trial of topical capsaicin (PMID: [id number]) Acute dystonic reaction due to drugs Assessment [...] Grover Spaulding MD at 07/09/2022 4:56 PM PROGRAM ANALYST RAM ANALYST RAM ANALYST * Plan of Care - Angelica Barnes [...] of discharge needs will improve Outcome: Progressing RAM ANALYST * Plan of Care - Marianne Frost [...] grandmother deny further concerns/questions at this time. RAM ANALYST * Plan of Care - Filomena Orozco [...] of discharge needs will improve Outcome: Progressing RAM ANALYST * Consults, Subsequent - Gretta Bowers MD - 07/08/2022 1:46 PM PROGRAM ANALYST Brief GI Update 17 y/o F no [...] N/V Gretta Bowers MD PhD Gastroenterology Fellow RAM ANALYST * Plan of Care - Shelby Griggs [...] retains patient within the continuum of care Planimeter Operator will continue to follow and assist with discharge planning as needed DANI Dela Cruz, yard coordinator For case management needs from 4:31 PM - 7:59 AM, please call the postbed stitcher at telephone number: [phone] For weekend/holiday needs from the hours of 8:00 AM to 4:30 PM, please call the weekend briefcase sewer at telephone number: [phone] RAM ANALYST * Medical Student - Mary Kate Hillman - 07/08/2022 1:08 PM CST Daily Progress Note Division of Hospital Medicine Name: Isabel Churchill Today: July 08, 2022 : 2005 Age: 17 y.o. female Admit: 07/03/2022 Bed: [place] [id number] Subjective Chief complaint: nausea Interval History: No [...] Extended EEG Report Patient Name: Isabel Churchill [facility] Medical Record Number (MRN): [id number] [facility] Record: No Soarian MRN Date [...] 32 channel EEG recording acquired on a Digify EEG-1200 acquisition system. Scalp electrodes were placed [...] regarding a trial of topical capsaicin (PMID: [id number]) Acute dystonic reaction due to drugs Assessment [...] Grover Spaulding MD at 07/09/2022 4:56 PM PROGRAM ANALYST RAM ANALYST RAM ANALYST RAM ANALYST * Provider Query - Grover Spaulding MD - 07/08/2022 1:03 PM PROGRAM ANALYST Clinical Indicators/Treatments: Patient presented with multiple complaints [...] Clinically unable to determine Additional Provider Response: [place] [employer] Cachexia [...] No 5; March 2021; pp [phone]; 2020 [facility] for Parenteral and Enteral Nutrition. Use of terms such as likely, suspected, possible, or probable (associated with a specific diagnosisthat is being evaluated, monitored, or treated as if it exists) are acceptable and can be coded in the inpatient setting when documented at the time of discharge. This documentation will become part of the patient???s medical record. RAM ANALYST * Plan of Care - Filomena Orozco [...] discharge needs will improve Outcome: Not Progressing RAM ANALYST * Assessment & Plan Note - Gita [...] finding. - May consider ophtho referral outpatient RAM ANALYST RAM ANALYST RAM ANALYST RAM ANALYST RAM ANALYST * Assessment & Plan Note - Gita [...] Will plan to remove NG tube today. RAM ANALYST RAM ANALYST RAM ANALYST RAM ANALYST * Assessment & Plan Note - Gita [...] with anti- emetics, patient agreeable with plan. RAM ANALYST RAM ANALYST RAM ANALYST RAM ANALYST RAM ANALYST RAM ANALYST RAM ANALYST * Assessment & Plan Note - Grover Spaulding MD - 07/07/2022 4:09 PM PROGRAM ANALYST Associated Problem(s): High serum vitamin B12 Hold supplementation RAM ANALYST * Assessment & Plan Note - Grover Spaulding MD - 07/07/2022 4:09 PM PROGRAM ANALYST Associated Problem(s): Chest pain, unspecified type (Resolved 07/14/2022) Likely musculoskeletal in since it only happens after vomiting or gagging. RAM ANALYST RAM ANALYST * Assessment & Plan Note - Grover Spaulding MD - 07/07/2022 4:08 PM PROGRAM ANALYST Associated Problem(s): Acute dystonic reaction due to [...] IV Benadryl prn dystonia - symptoms resolved RAM ANALYST * Plan of Care - Shelby Griggs [...] with family support and medical follow up Planimeter Operator will continue to follow patient to establish a safe and comprehensive discharge plan DANI Dela Cruz, yard coordinator For case management needs from 4:31 PM - 7:59 AM, please call the postbed stitcher at telephone number: [phone] For weekend/holiday needs from the hours of 8:00 AM to 4:30 PM, please call the weekend briefcase sewer at telephone number: [phone] RAM ANALYST * Plan of Care - Yessica Tineo [...] See Epic care team for contact information. RAM ANALYST * Medical Student - Mary Kate Hillman - 07/07/2022 9:20 AM CST Daily Progress Note Division of [facility] Medicine Name: Isabel Churchill Today: July 07, 2022 : 2005 Age: 17 y.o. female Admit: 07/03/2022 Bed: [id number] Subjective Chief complaint: nausea Interval History: Last [...] Extended EEG Report Patient Name: Isabel Churchill [facility] Medical Record Number (MRN): [id number] [facility] Record: No Soarian MRN Date [...] 32 channel EEG recording acquired on a Digify EEG-1200 acquisition system. Scalp electrodes were placed [...] Grover Spaulding MD at 07/09/2022 4:55 PM PROGRAM ANALYST RAM ANALYST RAM ANALYST * Plan of Care - Norman Torre [...] of discharge needs will improve Outcome: Progressing RAM ANALYST * Plan of Care - Shelby Griggs [...] family agree with the plan for discharge. Planimeter Operator will continue to follow and assist with discharge planning as needed. If any further discharge needs arise, please contact the covering briefcase sewer. DANI Dela Cruz, yard coordinator For case management needs from 4:31 PM - 7:59 AM, please call the postbed stitcher at telephone number: [phone] For weekend/holiday needs from the hours of 8:00 AM to 4:30 PM, please call the weekend briefcase sewer at telephone number: [phone] RAM ANALYST * Plan of Care - Alfredo Martins [...] Pt in bed resting. Hs meds given. RAM ANALYST * Consults, Maria Del Carmen Rodriguez MD - 07/05/2022 3:24 PM PROGRAM ANALYST Neurology Consult Follow-Up Note Requesting Provider: Shanique [...] Please call the neurology consult phone at [phone] (senior) with questions A referral has been placed for follow-up with Neurology at the [facility]. Please provide their number in the discharge instructions: [phone] The Neurology Consult Service will sign off at this time. Please call the Neurology Consult Senior phone ([phone]) with questions, and specify that this consult [...] Extended EEG Report Patient Name: Isabel Churchill [facility] Medical Record Number (MRN): [id number] [facility] Record: No Soarian MRN Date [...] 32 channel EEG recording acquired on a Digify EEG-1200 acquisition system. Scalp electrodes were placed [...] Plan at the top of the note. RAM ANALYST * Plan of Care - Angelica Barnes [...] of discharge needs will improve Outcome: Progressing RAM ANALYST * Assessment & Plan Note - Shanique Bazan MD - 07/05/2022 10:25 AM PROGRAM ANALYST Associated Problem(s): Severe malnutrition (CMS/HCC) (HCC) Patient with chronically low BMI per chart review with current BMI 14 and reported 10 lb weight loss recently related to vomiting and poor po intake - RD consult - ADAT, Ensure TIDAC - Calorie Count RAM ANALYST * Assessment & Plan Note - Shanique Bazan MD - 07/05/2022 10:25 AM PROGRAM ANALYST Associated Problem(s): Vitamin D deficiency 25 vit D on admission - started 50,000 units ergocalciferol qweek, plan x8w and repeat level RAM ANALYST * Assessment & Plan Note - Shanique Bazan MD - 07/05/2022 10:25 AM PROGRAM ANALYST Associated Problem(s): High serum vitamin B12 Hold supplementation RAM ANALYST * Assessment & Plan Note - Shanique Bazan MD - 07/05/2022 10:22 AM PROGRAM ANALYST Associated Problem(s): Acute dystonic reaction due to [...] Benadryl prn dystonia - symptoms improved today RAM ANALYST * Assessment & Plan Note - Shanique Bazan MD - 07/05/2022 10:22 AM PROGRAM ANALYST Associated Problem(s): Facial spasm (Resolved 07/05/2022) Patient with onset of bilateral facial spasm over V3 regions, lasting ~1-2min. Ca, Mg, K wnl. limited concern for lesion as etiology given bilateral - Trial baclofen - checking Cu level RAM ANALYST * Assessment & Plan Note - Shanique Bazan MD - 07/05/2022 10:22 AM PROGRAM ANALYST Associated Problem(s): Chest pain, unspecified type (Resolved 07/14/2022) - Constant of L upper chest/shoulder region - worse with palpation and arm movement - hs-trop/EKG unremarkable; suspect MSK in etiology - Trial lidocaine patch, tylenol - PT/OT RAM ANALYST * Assessment & Plan Note - Shanique Bazan MD - 07/05/2022 10:20 AM PROGRAM ANALYST Associated Problem(s): Nausea & vomiting Patient presenting [...] PPI - Avoid cannabis - Consult GI RAM ANALYST RAM ANALYST RAM ANALYST * Subjective & Objective - Shanique Bazan MD - 07/05/2022 10:13 AM PROGRAM ANALYST Daily Progress Note Division of Hospital Medicine Name: Isabel Churchill Today: July 05, 2022 : 2005 Age: 17 y.o. female Admit: 07/03/2022 Bed: [id number] Subjective Chief complaint: nausea Interval History: persistent [...] this written report and agrees with it. RAM ANALYST * Plan of Care - Alfredo Martins [...] dry heaving on and off all night. RAM ANALYST * Hospital Course - Gita Duarte MD [...] on discharge. Sent ophtho referral on discharge. RAM ANALYST RAM ANALYST RAM ANALYST RAM ANALYST RAM ANALYST RAM ANALYST RAM ANALYST RAM ANALYST RAM ANALYST RAM ANALYST RAM ANALYST RAM ANALYST * Significant Event - Shanique Bazan MD - 07/04/2022 1:14 PM PROGRAM ANALYST Called to room by RN because patient [...] Division of [facility] Medicine [facility] RAM ANALYST * Assessment & Plan Note - Shanique Bazan MD - 07/04/2022 11:53 AM PROGRAM ANALYST Associated Problem(s): High serum vitamin B12 Hold supplementation RAM ANALYST * Assessment & Plan Note - Shanique Bazan MD - 07/04/2022 11:48 AM PROGRAM ANALYST Associated Problem(s): Vitamin D deficiency 25 vit D on admission - started 50,000 units ergocalciferol qweek, plan x8w and repeat level RAM ANALYST * Subjective & Objective - Shanique Bazan MD - 07/04/2022 11:27 AM PROGRAM ANALYST Daily Progress Note Division of [facility] Medicine Name: Isabel Churchill Today: July 04, 2022 : 2005 Age: 17 y.o. female Admit: 07/03/2022 Bed: [id number] Subjective Chief complaint: vomiting, muscle twitching/spasm Interval [...] follow up: further workup in the ED RAM ANALYST RAM ANALYST * Plan of Care - Angelica Barnes [...] Goal: Pain level will decrease Outcome: Progressing RAM ANALYST * Assessment & Plan Note - Asad Marquis MD - 07/03/2022 9:52 PM PROGRAM ANALYST Associated Problem(s): Chest pain, unspecified type (Resolved 07/14/2022) - Constant of L upper chest/shoulder region - worse with palpation and arm movement - hs-trop/EKG unremarkable; suspect MSK in etiology - Trial lidocaine patch, tylenol - PT/OT RAM ANALYST * Assessment & Plan Note - Shanique Bazan MD - 07/03/2022 9:50 PM PROGRAM ANALYST Associated Problem(s): Facial spasm (Resolved 07/05/2022) Patient with onset of bilateral facial spasm over V3 regions, lasting ~1-2min. Ca, Mg, K wnl. limited concern for lesion as etiology given bilateral - Trial baclofen - checking Cu level RAM ANALYST RAM ANALYST RAM ANALYST * Assessment & Plan Note - Shanique Bazan MD - 07/03/2022 9:44 PM PROGRAM ANALYST Associated Problem(s): Abdominal pain (Resolved 07/05/2022) - [...] ongoing symptomatology with unremarkable workup - CTM RAM ANALYST RAM ANALYST RAM ANALYST RAM ANALYST RAM ANALYST * Assessment & Plan Note - Asad Marquis MD - 07/03/2022 9:44 PM PROGRAM ANALYST Associated Problem(s): Vision changes - Patient reports intermittent blurry vision over both eyes over the past several days (not presentduring encounter) - Unclear etiology - possible orthostatic; given history concern for 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; limited concern for optic neuritis given bilateral involvement - CTM, consider head imaging and ophthalmology consult if recurrent/ongoing during admission RAM ANALYST RAM ANALYST RAM ANALYST * Assessment & Plan Note - Shanique Bazan MD - 07/03/2022 9:40 PM PROGRAM ANALYST Associated Problem(s): Severe malnutrition (CMS/HCC) (HCC) Patient with chronically low BMI per chart review with current BMI 14 and reported 10 lb weight loss recently related to vomiting and poor po intake - RD consult - ADAT, Ensure TIDAC - Calorie Count RAM ANALYST RAM ANALYST * Assessment & Plan Note - Shanique Bazan MD - 07/03/2022 9:32 PM PROGRAM ANALYST Associated Problem(s): Nausea & vomiting Patient presenting [...] PPI - Avoid cannabis - Check Utox RAM ANALYST RAM ANALYST RAM ANALYST RAM ANALYST RAM ANALYST * ED Re-evaluation Note - Salena Cormier MD - 07/03/2022 7:19 PM PROGRAM ANALYST ED Re-evaluation TRANSITION OF CARE: I, Salena [...] unusual for an 17 yo to have ACS/CO, though is possible. Also consider biliary colic, pancreatitis, colitis, inflammatory bowel disease. Will check labs, get CT abdomen/pelvis, hydrate, assess for metabolic abnormality due to poor PO intake, check HCG to r/o . By: Yayo Patterson MD Time: 07/03 0929 Comment: Reviewed records from 06/18 at [facility], weight was listed as 46 kg at that time, now down to 40 kg. She tested + for fluA at that time. By: Yayo Patterson MD Time: 07/03 1153 Comment: CT IMPRESSION: No CT correlate for acute abdominal pain. 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 RAM ANALYST * ED Procedure Note - Ish Espinal MD - 07/03/2022 8:25 AM PROGRAM ANALYST Associated Order(s): ECG 12 lead Procedure ECG [...] the ED Ish Espinal MD 07/03/22 0825 RAM ANALYST documented in this encounter Plan of Treatment Not on file documented as of this encounter Procedures Procedure Name Priority Date/Time Associated Diagnosis Comments EGFR Timed 07/13/2022 9:32 AM PROGRAM ANALYST COMPREHENSIVE METABOLIC PANEL Timed 9:32 AM PROGRAM ANALYST EGFR Timed 07/12/2022 9:20 PM PROGRAM ANALYST PHOSPHORUS Timed 07/12/2022 9:20 PM PROGRAM ANALYST MAGNESIUM Timed 07/12/2022 9:20 PM PROGRAM ANALYST COMPREHENSIVE METABOLIC PANEL Timed 9:20 PM PROGRAM ANALYST EGFR Timed 07/12/2022 8:38 AM PROGRAM ANALYST COMPREHENSIVE METABOLIC PANEL Timed 8:38 AM PROGRAM ANALYST EGFR Timed 07/11/2022 10:54 PM PROGRAM ANALYST COMPREHENSIVE METABOLIC PANEL Timed 10:54 PM PROGRAM ANALYST XR ABDOMEN AP 1 VIEW ED Urgent/IP Urgent 07/11/2022 3:28 PM PROGRAM ANALYST XR ABDOMEN AP 1 VIEW ED Urgent/IP Urgent 07/11/2022 11:25 AM PROGRAM ANALYST EGFR Routine 07/11/2022 5:24 AM PROGRAM ANALYST BASIC METABOLIC PANEL Routine 07/11/2022 5:24 AM PROGRAM ANALYST EGFR Routine 07/10/2022 3:22 AM PROGRAM ANALYST BASIC METABOLIC PANEL Routine 07/10/2022 3:22 AM PROGRAM ANALYST XR CHEST 1 VIEW ED Urgent/IP Urgent 07/09/2022 2:00 PM PROGRAM ANALYST ECG 12-LEAD Routine 07/09/2022 12:33 PM PROGRAM ANALYST TROPONIN I HIGH-SENSITIVITY STAT 06/21 11:26 AM PROGRAM ANALYST EGFR Routine 07/09/2022 5:21 AM PROGRAM ANALYST BASIC METABOLIC PANEL Routine 07/09/2022 5:21 AM PROGRAM ANALYST EGFR Routine 07/08/2022 6:23 AM PROGRAM ANALYST BASIC METABOLIC PANEL Routine 07/08/2022 6:23 AM PROGRAM ANALYST SURGICAL PATHOLOGY Routine 07/07/2022 11:35 AM PROGRAM ANALYST Nausea and vomiting, unspecified vomiting type EGD 07/07/2022 11:25 AM PROGRAM ANALYST ESOPHAGOGASTRODUODENOSCOPY BIOPSY 07/07/2022 11:22 AM PROGRAM ANALYST Nausea and vomiting, unspecified vomiting type EGFR Routine 07/07/2022 6:48 AM PROGRAM ANALYST LEAD, BLOOD Routine 07/07/2022 6:48 AM PROGRAM ANALYST BASIC METABOLIC PANEL Routine 07/07/2022 6:48 AM PROGRAM ANALYST PROTIME-INR Routine 07/06/2022 10:03 PM PROGRAM ANALYST EGFR Routine 07/06/2022 3:39 AM PROGRAM ANALYST COPPER, SERUM Routine 07/06/2022 3:39 AM PROGRAM ANALYST BASIC METABOLIC PANEL Routine 07/06/2022 3:39 AM PROGRAM ANALYST MRI BRAIN W WO CONTRAST IP Routine 07/05/19 1:38 PM PROGRAM ANALYST EEG Routine 07/04/2022 4:[address] HEAD WO CONTRAST IP Routine 07/04/2022 1:56 PM PROGRAM ANALYST HC GLIADIN ANTIBODY EACH IMMUNOGLOBULIN CLASS Timed 07/04/2022 5:41 AM PROGRAM ANALYST EGFR Routine 07/04/2022 5:41 AM PROGRAM ANALYST HIV 1/2 ANTIBODY PLUS P24 ANTIGEN Routine 07/04/2022 5:41 AM PROGRAM ANALYST GLIADIN ANTIBODY, IGA Timed 07/04/2022 5:41 AM PROGRAM ANALYST TISSUE TRANSGLUTAMINASE, IGA Timed 5:41 AM PROGRAM ANALYST ERYTHROCYTE SEDIMENTATION RATE Timed 0 07/04/2022 5:41 AM PROGRAM ANALYST PHOSPHORUS Routine 07/04/2022 5:41 AM PROGRAM ANALYST MAGNESIUM Routine 07/04/2022 5:41 AM PROGRAM ANALYST LEAD, BLOOD Routine 07/04/2022 5:41 AM PROGRAM ANALYST BASIC METABOLIC PANEL Routine 07/04/2022 5:41 AM PROGRAM ANALYST XR CHEST PA LATERAL 2 VIEWS ED 06/20 1:46 PM PROGRAM ANALYST TROPONIN I HIGH-SENSITIVITY 2-HOUR Timed 07/03/2022 12:[address] ABDOMEN PELVIS W CONTRAST ED 11:30 AM PROGRAM ANALYST DRUGS OF ABUSE SCREEN, URINE WITH REFLEX CONFIRMATION STAT 07/03/2022 10:30 AM PROGRAM ANALYST HCG, URINE, QUALITATIVE STAT 07/03/19 23 10:30 AM PROGRAM ANALYST POCT CREATININE - DEVICE Routine 023 10:23 AM PROGRAM ANALYST URINALYSIS AND REFLEX TO MICROSCOPIC AND CULTURE STAT 07/03/2022 10:16 AM PROGRAM ANALYST TROPONIN I HIGH-SENSITIVITY SERIES (BASELINE, 2HR, 4HR, 6HR) STAT 07/03/2022 10:15 AM PROGRAM ANALYST EGFR STAT 07/03/2022 10:15 AM PROGRAM ANALYST DIFFERENTIAL AUTO STAT 07/03/2022 10:15 AM PROGRAM ANALYST THYROID FUNCTION CASCADE STAT 023 10:15 AM PROGRAM ANALYST IRON PROFILE W/ IBC STAT 07/03/2022 10:15 AM PROGRAM ANALYST RESPIRATORY PATHOGEN PANEL Routine 07/03 10:15 AM PROGRAM ANALYST CBC WITH AUTO DIFFERENTIAL STAT 07/03 10:15 AM PROGRAM ANALYST VITAMIN D 25 HYDROXY STAT 07/03/2022 10:15 AM PROGRAM ANALYST CRP (ACUTE PHASE) STAT 07/03/2022 10:15 AM PROGRAM ANALYST VITAMIN B1 Routine 07/03/2022 10:15 AM PROGRAM ANALYST PHOSPHORUS Routine 07/03/2022 10:15 AM PROGRAM ANALYST MAGNESIUM STAT 07/03/2022 10:15 AM PROGRAM ANALYST LIPASE STAT 07/03/2022 10:15 AM PROGRAM ANALYST IGA STAT 07/03/2022 10:15 AM PROGRAM ANALYST FERRITIN STAT 07/03/2022 10:15 AM PROGRAM ANALYST VITAMIN B12 STAT 07/03/2022 10:15 AM PROGRAM ANALYST COMPREHENSIVE METABOLIC PANEL STAT 10:15 AM PROGRAM ANALYST CALCIUM, IONIZED Routine 07/03/2022 9:42 AM PROGRAM ANALYST ECG 12-LEAD STAT 07/03/2022 8:25 AM PROGRAM ANALYST documented in this encounter Results * eGFR (07/13/2022 9:32 AM PROGRAM ANALYST) [facility] eGFR >90 90 - 130 mL/min/1. 73 m2 [facility] Comment: Interpretive Data Reference Interval [...] last reviewed 2021. Blood 07/13/2022 9:32 AM PROGRAM ANALYST 07/13/2022 9:56 AM PROGRAM ANALYST Grover Spaulding MD LAB BLOOD ORDERABLES Final Resul t [facility] Department [place] [address] * (ABNORMAL) Comprehensive metabolic panel (07/13/2022 9:32 AM PROGRAM ANALYST) Sodium 140 135 - 145 mmol/L [facility] Potassium, pl 4.4 3.3 - 4.9 mmol/L [facility] Chloride 101 97 - 110 mmol/L [facility] CO2 29 22 - 32 mmol/L [facility] Anion gap 10 2 - 15 mmol/L [facility] BUN 11 8 - 25 mg/dL [facility] Creatinine 0.87 0.40 - 1.00 mg/dL [facility] Glucose 94 70 - 199 mg/dL [facility] Comment: Interpretive Data Fasting glucose >/= 126 [...] 2022. Calcium 9.2 8.5 - 10.3 mg/dL [facility] Bilirubin, total 0.5 0.1 - 1.2 mg/dL [facility] Protein, pl 6.4(L) 6.5 - 8.5 g/dL [facility] Albumin 4.0 3.5 - 5.0 g/dL [facility] Alk phos 43(L) 70 - 260 Units/L [facility] ALT 12 7 - 45 Units/L [facility] AST 25 10 - 45 Units/L [facility] Blood 07/13/2022 9:32 AM PROGRAM ANALYST 07/13/2022 9:56 AM PROGRAM ANALYST Grover Spaulding MD LAB BLOOD ORDERABLES Final Resul t Performing Organization Address City/[facility] Co de Phone Number [facility] [place] [address] * Phosphorus (07/12/2022 9:20 PM PROGRAM ANALYST) Pathologist [facility] Phosphorus, pl 3.5 2.3 - 4.5 mg/dL [facility] Blood 07/12/2022 9:20 PM PROGRAM ANALYST 07/12/2022 9:59 PM PROGRAM ANALYST us Gita Duarte MD LAB BLOOD ORDERABLES Final Resul t Performing Organization Address [facility] de Phone Number [facility] [place] [address] * Magnesium (07/12/2022 9:20 PM PROGRAM ANALYST) [facility] Magnesium 2.0 1.4 - 2.5 mg/dL [facility] Blood 07/12/2022 9:20 PM PROGRAM ANALYST 07/12/2022 9:59 PM PROGRAM ANALYST Gita Duarte MD LAB BLOOD ORDERABLES Final Resul t Performing Organization Address [facility] Co de Phone Number [facility] [place] [address] * eGFR (07/12/2022 9:20 PM PROGRAM ANALYST) [facility] eGFR >90 90 - 130 mL/min/1. 73 m2 [facility] Comment: Interpretive Data Reference Interval Normal ?>/= [...] last reviewed 2021. Blood 07/12/2022 9:20 PM PROGRAM ANALYST 07/12/2022 9:59 PM PROGRAM ANALYST us Grover Spaulding MD LAB BLOOD ORDERABLES Final Resul t [facility] Department [place] [address] * (ABNORMAL) Comprehensive metabolic panel (07/12/2022 9:20 PM PROGRAM ANALYST) Sodium 138 135 - 145 mmol/L [facility] Potassium, pl 4.1 3.3 - 4.9 mmol/L [facility] Chloride 104 97 - 110 mmol/L [facility] CO2 28 22 - 32 mmol/L [facility] Anion gap 6 2 - 15 mmol/L [facility] BUN 10 8 - 25 mg/dL [facility] Creatinine 0.90 0.40 - 1.00 mg/dL [facility] Glucose 101 70 - 199 mg/dL [facility] Comment: Interpretive Data Fasting glucose >/= 126 [...] 2022. Calcium 8.9 8.5 - 10.3 mg/dL [facility] Bilirubin, total 0.6 0.1 - 1.2 mg/dL [facility] Protein, pl 6.2(L) 6.5 - 8.5 g/dL [facility] Albumin 3.9 3.5 - 5.0 g/dL [facility] Alk phos 47(L) 70 - 260 Units/L [facility] ALT 16 7 - 45 Units/L [facility] AST 24 10 - 45 Units/L [facility] Blood 07/12/2022 9:20 PM PROGRAM ANALYST 07/12/2022 9:59 PM PROGRAM ANALYST us Grover Spaulding MD LAB BLOOD ORDERABLES Final Resul t [facility] One [facility] Department [place] [address] * (ABNORMAL) eGFR (07/12/2022 8:38 AM PROGRAM ANALYST) eGFR 83(L) 90 - 130 mL/min/1. 73 m2 [facility] Comment: Interpretive Data Reference Interval Normal ?>/= [...] last reviewed 2021. Blood 07/12/2022 8:38 AM PROGRAM ANALYST 07/12/2022 10:43 AM PROGRAM ANALYST us Grover Spaulding MD LAB BLOOD ORDERABLES Final Resul t [facility] One [facility] Department [place] [address] * (ABNORMAL) Comprehensive metabolic panel (07/12/2022 8:38 AM PROGRAM ANALYST) Sodium 139 135 - 145 mmol/L [facility] Potassium, pl 4.0 3.3 - 4.9 mmol/L [facility] Chloride 100 97 - 110 mmol/L [facility] CO2 29 22 - 32 mmol/L [facility] Anion gap 10 2 - 15 mmol/L [facility] BUN 12 8 - 25 mg/dL [facility] Creatinine 1.01(H) 0.40 - 1.00 mg/dL [facility] Glucose 92 70 - 199 mg/dL [facility] Comment: Interpretive Data Fasting glucose >/= 126 [...] 2022. Calcium 9.1 8.5 - 10.3 mg/dL [facility] Bilirubin, total 1.0 0.1 - 1.2 mg/dL [facility] Protein, pl 6.3(L) 6.5 - 8.5 g/dL [facility] Albumin 3.9 3.5 - 5.0 g/dL [facility] Alk phos 38(L) 70 - 260 Units/L [facility] ALT 10 7 - 45 Units/L [facility] AST 19 10 - 45 Units/L [facility] Blood 07/12/2022 8:38 AM PROGRAM ANALYST 07/12/2022 10:43 AM PROGRAM ANALYST us Grover Spaulding MD LAB BLOOD ORDERABLES Final Resul t [facility] One [facility] Department [place] [address] * eGFR (07/11/2022 10:54 PM PROGRAM ANALYST) eGFR >90 90 - 130 mL/min/1. 73 m2 [facility] Comment: Interpretive Data Reference Interval Normal ?>/= [...] reviewed 2021. Blood 07/11/2022 10:5 4 PM PROGRAM ANALYST 07/11/2022 11:22 PM PROGRAM ANALYST us Grover Spaulding MD LAB BLOOD ORDERABLES Final Resul t [facility] One [facility] Department [place] [address] * (ABNORMAL) Comprehensive metabolic panel (07/11/2022 10:54 PM PROGRAM ANALYST) Sodium 139 135 - 145 mmol/L [facility] Potassium, pl 3.6 3.3 - 4.9 mmol/L [facility] Chloride 101 97 - 110 mmol/L [facility] CO2 30 22 - 32 mmol/L [facility] Anion gap 8 2 - 15 mmol/L [facility] BUN 10 8 - 25 mg/dL [facility] Creatinine 0.93 0.40 - 1.00 mg/dL [facility] Glucose 108 70 - 199 mg/dL [facility] Comment: Interpretive Data Fasting glucose >/= 126 [...] 2022. Calcium 9.0 8.5 - 10.3 mg/dL [facility] Bilirubin, total 1.2 0.1 - 1.2 mg/dL [facility] Protein, pl 6.4(L) 6.5 - 8.5 g/dL [facility] Albumin 4.0 3.5 - 5.0 g/dL [facility] Alk phos 38(L) 70 - 260 Units/L [facility] ALT 10 7 - 45 Units/L [facility] AST 22 10 - 45 Units/L [facility] Blood 07/11/2022 10:5 4 PM PROGRAM ANALYST 07/11/2022 11:22 PM PROGRAM ANALYST us Grover Spaulding MD LAB BLOOD ORDERABLES Final Resul t [facility] One [facility] Department [place] [address] * XR Abdomen Ap 1 Vw (07/11/2022 3:28 PM PROGRAM ANALYST) Anatomical Region Laterality Modality Body, Abdomen N/A Computed Radiogr aphy 07/12/2022 10:0 1 AM PROGRAM ANALYST Impressions 07/12/2022 11:43 AM PROGRAM ANALYST Two single view radiograph of the abdomen [...] Miguel Juan M.D. Narrative 07/12/2022 11:43 AM PROGRAM ANALYST EXAMINATION: Two abdomen one view radiographs. HISTORY: [...] Abdomen Ap 1 Vw (07/11/2022 11:25 AM PROGRAM ANALYST) Anatomical Region Laterality Modality Body, Abdomen N/A Computed Radiogr aphy 07/12/2022 10:0 1 AM PROGRAM ANALYST Impressions 07/12/2022 11:43 AM PROGRAM ANALYST Two single view radiograph of the abdomen [...] Miguel Juan M.D. Narrative 07/12/2022 11:43 AM PROGRAM ANALYST EXAMINATION: Two abdomen one view radiographs. HISTORY: [...] Final Result * eGFR (07/11/2022 5:24 AM PROGRAM ANALYST) [facility] eGFR >90 90 - 130 mL/min/1. 73 m2 [facility] Comment: Interpretive Data Reference Interval Normal ?>/= [...] last reviewed 2021. Blood 07/11/2022 5:24 AM PROGRAM ANALYST 07/11/2022 5:54 AM PROGRAM ANALYST us Shanique Bazan MD LAB BLOOD ORDERABLES Anjana andersen Result [facility] One [facility] Department [place] [address] * Basic metabolic panel (07/11/2022 5:24 AM PROGRAM ANALYST) [facility] Sodium 140 135 - 145 mmol/L [facility] Potassium, pl 3.7 3.3 - 4.9 mmol/L [facility] Chloride 102 97 - 110 mmol/L [facility] CO2 28 22 - 32 mmol/L [facility] Anion gap 10 2 - 15 mmol/L [facility] BUN 10 8 - 25 mg/dL [facility] Creatinine 0.92 0.40 - 1.00 mg/dL [facility] Glucose 96 70 - 199 mg/dL [facility] Comment: Interpretive Data Fasting glucose >/= 126 [...] Calcium 9.5 8.5 - 10.3 mg/dL [facility] Blood 07/11/2022 5:24 AM PROGRAM ANALYST 07/11/2022 5:54 AM PROGRAM ANALYST Shanique Bazan MD LAB BLOOD ORDERABLES Anjana andersen Result [facility] One [facility] Department [place] [address] * (ABNORMAL) eGFR (07/10/2022 3:22 AM PROGRAM ANALYST) eGFR 84(L) 90 - 130 mL/min/1. 73 m2 [facility] Comment: Interpretive Data Reference Interval [...] last reviewed 2021. Blood 07/10/2022 3:22 AM PROGRAM ANALYST 07/10/2022 4:33 AM PROGRAM ANALYST us Shanique Bazan MD LAB BLOOD ORDERABLES Anjana l Result Performing Organization Address [facility] Co de Phone Number [facility] Department [place] [address] * Basic metabolic panel (07/10/2022 3:22 AM PROGRAM ANALYST) Sodium 140 135 - 145 mmol/L [facility] Potassium, pl 3.9 3.3 - 4.9 mmol/L [facility] Chloride 102 97 - 110 mmol/L [facility] CO2 31 22 - 32 mmol/L [facility] Anion gap 7 2 - 15 mmol/L [facility] BUN 11 8 - 25 mg/dL [facility] Creatinine 1.00 0.40 - 1.00 mg/dL [facility] Glucose 92 70 - 199 mg/dL [facility] Comment: Interpretive Data Fasting glucose >/= 126 [...] 2022. Calcium 9.6 8.5 - 10.3 mg/dL [facility] Blood 07/10/2022 3:22 AM PROGRAM ANALYST 07/10/2022 4:33 AM PROGRAM ANALYST Shanique Bazan MD LAB BLOOD ORDERABLES Anjana l Result Performing Organization Address [facility] Co de Phone Number [facility] [place] [address] * XR Chest 1 View (07/09/2022 2:00 PM PROGRAM ANALYST) Anatomical Region Laterality Modality Body, Chest N/A Computed Radiogr aphy 07/09/2022 2:34 PM PROGRAM ANALYST Impressions 07/09/2022 5:03 PM PROGRAM ANALYST The current study is compared with the prior radiograph dated 07/03/2022. ??The lungs are clear without pulmonary consolidation, pleural effusion, or pneumothorax. ??The cardiomediastinal silhouette is unchanged. Dictated by: Triston Sierra MD The radiology attending physician has personally reviewed this study, and had reviewed and/or edited this written report and agrees with it. Electronically signed by: Elizabeth Delvalle M.D. Narrative 07/09/2022 5:03 PM PROGRAM ANALYST EXAMINATION: 1 view chest radiograph Procedure Note [...] * ECG 12 lead (07/09/2022 12:33 PM PROGRAM ANALYST) Pathologist [facility] Ventricular Rate EKG/Min 80 BPM [facility] Atrial Rate 80 BPM [facility] MN-Interval (MSEC) 166 ms [facility] QRS-Interval (MSEC) 74 ms [facility] QT-Interval (MSEC) 378 ms [facility] QTc 435 ms [facility] P [place] 73 degrees [facility] R [place] 76 degrees [facility] T [place] 61 degrees [facility] Diagnosis Normal sinus rhythm Anteroseptal infarct , age undetermined Abnormal ECG No previous ECGs available Confirmed by HUGO UP M.D ([id number]) on 07/12/2022 9:59:49 AM [facility] 07/09/2022 12:3 3 PM PROGRAM ANALYST 07/12/2022 9:59 AM PROGRAM ANALYST us Grover Spaulding MD ECG ORDERABLES Final Result Performing Organization Address City/[facility]/ZIP Co de Phone Number [facility] * Troponin I high-sensitivity (07/09/2022 11:26 AM PROGRAM ANALYST) Trop I hs <4 <=17 ng/L [facility] Comment: Interpretive Data For further [facility] resources including the diagnostic algorithm and an aid in interpretation, copy and paste this link: [email or web address]/[email or web address] Current Interpretive Data last revised 2019. Blood 07/09/2022 11:2 6 AM PROGRAM ANALYST 07/09/2022 12:37 PM PROGRAM ANALYST us Grover Spaulding MD LAB BLOOD ORDERABLES Final Resul t Performing Organization Address [facility] Co de Phone Number [facility] One [facility] Department [place] [address] * eGFR (07/09/2022 5:21 AM PROGRAM ANALYST) eGFR >90 90 - 130 mL/min/1. 73 m2 [facility] Comment: Interpretive Data Reference Interval Normal ?>/= [...] last reviewed 2021. Blood 07/09/2022 5:21 AM PROGRAM ANALYST 07/09/2022 6:21 AM PROGRAM ANALYST us Shanique Bazan MD LAB BLOOD ORDERABLES Anjana l Result [facility] One [facility] Department [place] [address] * Basic metabolic panel (07/09/2022 5:21 AM PROGRAM ANALYST) Sodium 136 135 - 145 mmol/L [facility] Potassium, pl 3.7 3.3 - 4.9 mmol/L [facility] Chloride 101 97 - 110 mmol/L [facility] CO2 28 22 - 32 mmol/L [facility] Anion gap 7 2 - 15 mmol/L [facility] BUN 13 8 - 25 mg/dL [facility] Creatinine 0.91 0.40 - 1.00 mg/dL [facility] Glucose 92 70 - 199 mg/dL [facility] Comment: Interpretive Data Fasting glucose >/= 126 [...] 2022. Calcium 9.2 8.5 - 10.3 mg/dL [facility] Blood 07/09/2022 5:21 AM PROGRAM ANALYST 07/09/2022 6:21 AM PROGRAM ANALYST us Shanique Bazan MD LAB BLOOD ORDERABLES Anjana l Result Performing Organization Address [facility] Co de Phone Number [facility] [place] [address] * eGFR (07/08/2022 6:23 AM PROGRAM ANALYST) eGFR >90 90 - 130 mL/min/1. 73 m2 [facility] Comment: Interpretive Data Reference Interval Normal ?>/= [...] last reviewed 2021. Blood 07/08/2022 6:23 AM PROGRAM ANALYST 07/08/2022 7:35 AM PROGRAM ANALYST us Shanique Bazan MD LAB BLOOD ORDERABLES Anjana l Result Performing Organization Address [facility] Co de Phone Number [facility] Oleg [facility] Department [place] [address] * Basic metabolic panel (07/08/2022 6:23 AM PROGRAM ANALYST) Sodium 138 135 - 145 mmol/L [facility] Potassium, pl 4.1 3.3 - 4.9 mmol/L [facility] Chloride 100 97 - 110 mmol/L [facility] CO2 26 22 - 32 mmol/L [facility] Anion gap 12 2 - 15 mmol/L [facility] BUN 13 8 - 25 mg/dL [facility] Creatinine 0.93 0.40 - 1.00 mg/dL [facility] Glucose 90 70 - 199 mg/dL [facility] Comment: Interpretive Data Fasting glucose >/= 126 [...] 2022. Calcium 9.6 8.5 - 10.3 mg/dL [facility] Blood 07/08/2022 6:23 AM PROGRAM ANALYST 07/08/2022 7:20 AM PROGRAM ANALYST Shanique Bazan MD LAB BLOOD ORDERABLES Anjana andersen Result [facility] One [facility] Department [place] [address] * Surgical pathology (07/07/2022 11:35 AM PROGRAM ANALYST) Tissue (Duodenum, Biopsy) 07/07/2022 11:35 AM PROGRAM ANALYST Tissue (Gastric/Stomach biopsy) 07/07/2022 11:37 AM PROGRAM ANALYST Tissue (Esophageal biopsy) 07/07/2022 11:39 AM PROGRAM ANALYST Narrative PATHOLOGY [facility] - 07/08/2022 7:57 AM PROGRAM ANALYST EPIC results best viewed via link to PDF [facility] [place] [address] Note to Patients: This report may contain [...] Gender: ??F : ??2005 (Age: 17) Address: ??[address] [place] [address] ??[id number] Hospital #: ??[id number] Taken:07/07/2022 Received:07/07/2022 Reported: 07/08/2022 Patient Type: [facility] Inpatient ?? Service: Hospitalist Location: [place] [address] Physician(s): ??Brittnee Babb M.D. Rita Lynn M.D. [...] Surgical Pathology and Flow Cytometry Departments at [facility] as part of an ongoing lead quality technician program and in compliance with federally mandated [...] Surgical Pathology and Flow Cytometry Departments of [facility]. ??It has not been cleared or approved by the U. S. Food and Drug Administration. IMAGES AND SCANNED DOCUMENTS, IF INCLUDED, ONLY VIEWABLE IN PDF VERSION OF REPORT us Brittnee Babb MD LAB PATHOLOGY ORDERAB LES Final Result PATHOLOGY [facility] 3rd Floor [place], [place] [phone] * EGD (07/07/2022 11:25 AM PROGRAM ANALYST) Anatomical Region Laterality Modality Other Narrative Procedure Note Brittnee Babb MD - 07/07/2022 11:25 AM CST [facility] Patient Name: Isabel Churchill Procedure Date: 07/07/2022 11:25 AM Date of : 2005 Admit Type: Inpatient Age: 17 Gender: Female Attending MD: Brittnee Babb M.D. Room: [facility] ENDOSCOPY ROOM 9 Note Status: Finalized [...] Monitored anesthesia care under the supervisionof a SANDBLASTER PAINT SPRAYER was determined to be medically necessary forthis [...] the days following this procedure please call [phone]. After hours and evenings please call [phone] speak to the GI fellow operations expert. Please tell thefellow that Dr. Babbdid your [...] On: 07/07/2022 11:25 AM Recognized by the [employer] [employer] for promoting quality in endoscopy Brittnee Babb MD ENDOSCOPY PROCEDURES Final Result * eGFR (07/07/2022 6:48 AM PROGRAM ANALYST) eGFR >90 90 - 130 mL/min/1. 73 m2 [facility] Comment: Interpretive Data Reference Interval [...] last reviewed 2021. Blood 07/07/2022 6:48 AM PROGRAM ANALYST 07/07/2022 7:07 AM PROGRAM ANALYST Shanique Bazan MD LAB BLOOD ORDERABLES Anjana andersen Result [facility] One [facility] Department [place] [address] * Basic metabolic panel (07/07/2022 6:48 AM PROGRAM ANALYST) Pathologist [facility] Sodium 138 135 - 145 mmol/L [facility] Potassium, pl 4.0 3.3 - 4.9 mmol/L [facility] Chloride 98 97 - 110 mmol/L [facility] CO2 26 22 - 32 mmol/L [facility] Anion gap 14 2 - 15 mmol/L [facility] BUN 12 8 - 25 mg/dL [facility] Creatinine 0.92 0.40 - 1.00 mg/dL [facility] Glucose 92 70 - 199 mg/dL [facility] Comment: Interpretive Data Fasting glucose >/= 126 [...] 2022. Calcium 9.6 8.5 - 10.3 mg/dL [facility] Blood 07/07/2022 6:48 AM PROGRAM ANALYST 07/07/2022 7:07 AM PROGRAM ANALYST us Shanique Nancy Beni MD LAB BLOOD ORDERABLES Anjana l Result Performing Organization Address [facility] [place] [address] * Lead, blood (07/07/2022 6:48 AM PROGRAM ANALYST) Lead <1.0 <5.0 mcg/dL [facility] Comment: ADDITIONAL INFORMATION Testing performed by Inductively Coupled Plasma-Mass Spectrometry (ICP-MS). This test was developed and its performance characteristics determined by [facility] in a manner consistent with CLIA requirements. This test has not been cleared or approved by the U.S. Food and Drug Administration. Interpretive Data Testing performed by: [facility], [place] [address]. Blood 07/07/2022 6:48 AM PROGRAM ANALYST 07/07/2022 7:17 AM PROGRAM ANALYST Grover Spaulding MD LAB BLOOD ORDERABLES Final Resul t Performing Organization Address [facility] [place] [address] * Protime-INR (07/06/2022 10:03 PM PROGRAM ANALYST) PT 13.5 9.2 - 13.5 sec [facility] INR 1.2 0.9 - 1.2 [facility] Comment: Interpretive data Oral anticoagulant therapeutic ranges: Venous thromboembolism prophylaxis or treatment: 2.0-3.0 CARDIOLOGY Standard range: 2.0-3.0 High-intensity range: 2.5-3.5 Refer to indication-specific guidelines for appropriate target ranges for prosthetic heart valve replacement. Current interpretive data was last revised on 2019. Blood 07/06/2022 10:0 3 PM PROGRAM ANALYST 07/06/2022 11:40 PM PROGRAM ANALYST us Grover Spaulding MD LAB BLOOD ORDERABLES Final Resul t Performing Organization Address [facility] Co de Phone Number [facility] One [facility] Department [place] [address] * eGFR (07/06/2022 3:39 AM PROGRAM ANALYST) eGFR >90 90 - 130 mL/min/1. 73 m2 [facility] Comment: Interpretive Data Reference Interval Normal ?>/= [...] last reviewed 2021. Blood 07/06/2022 3:39 AM PROGRAM ANALYST 07/06/2022 4:22 AM PROGRAM ANALYST us Shanique Bazan MD LAB BLOOD ORDERABLES Anjana l Result Performing Organization Address [facility] Co de Phone Number [facility] One [facility] Department [place] [address] * (ABNORMAL) Basic metabolic panel (07/06/2022 3:39 AM PROGRAM ANALYST) Sodium 136 135 - 145 mmol/L [facility] Potassium, pl 3.8 3.3 - 4.9 mmol/L [facility] Chloride 101 97 - 110 mmol/L [facility] CO2 28 22 - 32 mmol/L [facility] Anion gap 7 2 - 15 mmol/L [facility] BUN 6(L) 8 - 25 mg/dL [facility] Creatinine 0.90 0.40 - 1.00 mg/dL [facility] Glucose 94 70 - 199 mg/dL [facility] Comment: Interpretive Data Fasting glucose >/= 126 [...] 2022. Calcium 9.9 8.5 - 10.3 mg/dL [facility] Blood 07/06/2022 3:39 AM PROGRAM ANALYST 07/06/2022 4:22 AM PROGRAM ANALYST us Shanique Bazan MD LAB BLOOD ORDERABLES Anjana andersen Result [facility] One [facility] Department [place] [address] * (ABNORMAL) Copper, serum (07/06/2022 3:39 AM PROGRAM ANALYST) Pathologist [facility] Copper 70(L) 77 - 206 mcg/dL [facility] Comment: ADDITIONAL INFORMATION This test was developed and its performance characteristics determined by [facility] in a manner consistent with CLIA requirements. This test has not been cleared or approved by the U.S. Food and Drug Administration. Test Performed by: [facility] [address] [place] [address] Rotor Balancer: Juan Villagran M.D. Ph.D.; CLIA# [id number] Blood 07/06/2022 3:39 AM PROGRAM ANALYST 07/06/2022 4:15 AM PROGRAM ANALYST us Shanique Bazan MD LAB BLOOD ORDERABLES Anjana andersen Result [facility] One [facility] [place] [address] * MRI Brain W WO Contrast (07/05/2022 1:38 PM PROGRAM ANALYST) Anatomical Region Laterality Modality Head and Neck N/A Magnetic Resonan ce 07/05/2022 1:57 PM PROGRAM ANALYST Impressions 07/05/2022 2:11 PM PROGRAM ANALYST Crowding of the foramen magnum with 3 [...] Beatrice Silva M.D. Narrative 07/05/2022 2:11 PM PROGRAM ANALYST EXAMINATION: Magnetic resonance imaging (MRI) of the [...] Final Result * EEG (07/04/2022 4:17 PM PROGRAM ANALYST) Anatomical Region Laterality Modality EEG Narrative 07/05/2022 12:20 PM PROGRAM ANALYST Extended EEG Report Patient Name: Isabel Churchill [facility] Medical Record Number (MRN): [id number] [facility] Record: No [facility] MRN Date [...] 32 channel EEG recording acquired on a [employer] EEG-1200 acquisition system. Scalp electrodes were placed [...] CT Head WO Contrast (07/04/2022 1:56 PM PROGRAM ANALYST) Anatomical Region Laterality Modality Head and Neck N/A Computed Tomogra phy 07/04/2022 2:00 PM PROGRAM ANALYST Impressions 07/04/2022 3:47 PM PROGRAM ANALYST No intracranial hemorrhage, mass effect or midline shift. Dictated by: Lamin Vargas M.D. The radiology attending physician has personally reviewed this study, and had reviewed and/or edited this written report and agrees with it. Electronically signed by: Olga Akers M.D. Narrative 07/04/2022 3:47 PM PROGRAM ANALYST EXAMINATION: CT head without contrast HISTORY: Muscle [...] R esult * eGFR (07/04/2022 5:41 AM PROGRAM ANALYST) [facility] eGFR >90 90 - 130 mL/min/1. 73 m2 [facility] Comment: Interpretive Data Reference Interval Normal ?>/= [...] last reviewed 2021. Blood 07/04/2022 5:41 AM PROGRAM ANALYST 07/04/2022 6:35 AM PROGRAM ANALYST Asad Marquis MD LAB BLOOD ORDERABLES Anjana l Result Performing Organization Address [facility] [place] [address] * Tissue transglutaminase IgA (TGG-IgA Ab) (07/04/2022 5:41 AM PROGRAM ANALYST) TTG ab, IgA <0.5 <=14.9 units/mL [facility] Comment: Interpretive data Negative: <15 units/mL Positive: > or equal to 15 units/mL Current interpretive data was last revised on 2016. Blood 07/04/2022 5:41 AM PROGRAM ANALYST 07/04/2022 6:22 AM PROGRAM ANALYST us Ady Emanuel MD LAB BLOOD ORDERABLES Final R esult Performing Organization Address [facility] [place] [address] * Magnesium (07/04/2022 5:41 AM PROGRAM ANALYST) Magnesium 1.9 1.4 - 2.5 mg/dL [facility] Blood 07/04/2022 5:41 AM PROGRAM ANALYST 07/04/2022 6:19 AM PROGRAM ANALYST us Ady Emanuel MD LAB BLOOD ORDERABLES Final R esult Performing Organization Address [facility] [place] [address] * Gliadin antibody, IgA (07/04/2022 5:41 AM PROGRAM ANALYST) Anti-gliadin, IgA 0.5 <=14.9 units/mL [facility] Comment: Interpretive data Negative: <15 units/mL Positive: > or equal to 15 units/mL Current interpretive data was last revised on 2016. Blood 07/04/2022 5:41 AM PROGRAM ANALYST 07/04/2022 6:22 AM PROGRAM ANALYST us Ady Emanuel MD LAB BLOOD ORDERABLES Final R esult Performing Organization Address City/[facility] Co de Phone Number [facility] [place] [address] * Erythrocyte sedimentation rate (07/04/2022 5:41 AM PROGRAM ANALYST) Erythrocyte sedimentation rate 9 1 - 20 mm/hr [facility] Blood 07/04/2022 5:41 AM PROGRAM ANALYST 07/04/2022 6:20 AM PROGRAM ANALYST us Ady Emanuel MD LAB BLOOD ORDERABLES Final R esult Performing Organization Address [facility] Co de Phone Number [facility] [place] [address] * Phosphorus (07/04/2022 5:41 AM PROGRAM ANALYST) Pathologist [facility] Phosphorus, pl 3.9 2.3 - 4.5 mg/dL [facility] Blood 07/04/2022 5:41 AM PROGRAM ANALYST 07/04/2022 6:19 AM PROGRAM ANALYST us Asad Marquis MD LAB BLOOD ORDERABLES Anjana l Result Performing Organization Address [facility] Co de Phone Number [facility] [place] [address] * (ABNORMAL) Basic metabolic panel (07/04/2022 5:41 AM PROGRAM ANALYST) Sodium 140 135 - 145 mmol/L [facility] Potassium, pl 3.5 3.3 - 4.9 mmol/L [facility] Chloride 104 97 - 110 mmol/L [facility] CO2 28 22 - 32 mmol/L [facility] Anion gap 8 2 - 15 mmol/L [facility] BUN 4(L) 8 - 25 mg/dL [facility] Creatinine 0.72 0.40 - 1.00 mg/dL [facility] Glucose 101 70 - 199 mg/dL [facility] Comment: Interpretive Data Fasting glucose >/= 126 [...] 2017. Calcium 9.3 8.5 - 10.3 mg/dL [facility] Blood 07/04/2022 5:41 AM PROGRAM ANALYST 07/04/2022 6:19 AM PROGRAM ANALYST Asad Marquis MD LAB BLOOD ORDERABLES Anjana l Result Performing Organization Address City/[facility]/ZIP Co de Phone Number [facility] Department [place] [address] * Lead, blood (07/04/2022 5:41 AM PROGRAM ANALYST) Lead TNP [facility] Comment: Credited, collection error. Lead, Venous, B was cancelled on 07/06/2022 at 09:49; Specimen was improperly collected. [place] blue no additive tube received. ??[place] blue EDTA tube required. Interpretive Data Testing performed by: [facility], [place] [address]. Blood 07/04/2022 5:41 AM PROGRAM ANALYST 07/04/2022 6:13 AM PROGRAM ANALYST Asad Marquis MD LAB BLOOD ORDERABLES Edit ed Result - Final Performing Organization Address [facility]/ZIP Co de Phone Number [facility] Department [place] [address] * HIV 1/2 Antibody plus p24 Antigen Blood (07/04/2022 5:41 AM PROGRAM ANALYST) HIV 1/2 ab + p24 ag Nonreactive Nonreactive [facility] Comment:Nonreactive for HIV- 1 antigen and HIV-1/HIV-2 antibodies. No laboratory evidence of HIV infection. If acute HIV infection is suspected, consider testing for HIV-1 RNA. Current interpretive data was last revised on 22. Blood 07/04/2022 5:41 AM PROGRAM ANALYST 07/04/2022 6:20 AM PROGRAM ANALYST us Asad Marquis MD LAB MICROBIOLOGY - GENERA L ORDERABLES Final Result [facility] One [facility] Department [place] [address] * XR Chest Pa Lateral 2 Views (07/03/2022 1:46 PM PROGRAM ANALYST) Anatomical Region Laterality Modality Body, Chest N/A Computed Radiogr aphy 07/03/2022 2:05 PM PROGRAM ANALYST Impressions 07/03/2022 2:20 PM PROGRAM ANALYST There are no relevant prior studies available [...] Shanique Maxwell MD Narrative 07/03/2022 2:20 PM PROGRAM ANALYST EXAMINATION: XR CHEST PA LATERAL 2 VIEWS [...] Troponin I high-sensitivity 2-hour (07/03/2022 12:03 PM PROGRAM ANALYST) Trop I hs <4 <=17 ng/L [facility] Comment: Interpretive Data For further hscTnI resources including the diagnostic algorithm and an aid in interpretation, copy and paste this link: [email or web address].testcatalog.org/show/[email or web address] Current Interpretive Data last revised 2019. Trop I hs delta 0 ng/L [facility] Trop I hs interp Insignificant [facility] Blood 07/03/2022 12:0 3 PM PROGRAM ANALYST 07/03/2022 12:07 PM PROGRAM ANALYST Jorge Degroot MD LAB BLOOD ORDERABLES Anjana l Result [facility] One [facility] Department [place] [address] * CT Abdomen Pelvis W Contrast (07/03/2022 11:30 AM PROGRAM ANALYST) Anatomical Region Laterality Modality Body N/A Computed Tomogra phy 07/03/2022 11:4 2 AM PROGRAM ANALYST Impressions 07/03/2022 11:51 AM PROGRAM ANALYST No CT correlate for acute abdominal pain. Dictated by: Tanja Wood MD The radiology attending physician has personally reviewed this study, and had reviewed and/or edited this written report and agrees with it. Electronically signed by: Clemente Foster M.D. Narrative 07/03/2022 11:51 AM PROGRAM ANALYST EXAMINATION: ??Computed tomography of the abdomen and [...] Urine with Reflex Confirmation (07/03/2022 10:30 AM PROGRAM ANALYST) Amphetamine, ur Not Detected CutOff 500ng/mL [facility] Comment: Interpretive Data - Amphetamines: ??Samples containing greater than 500 ng/mL d-methamphetamine ??or other cross-reacting amphetamine compounds are reported as positive. ??Amphetamine immunoassays are subject to significant false positive rates due to cross-reactivity of non-amphetamine drugs. Current Interpretive Data was last reviewed 2018. Barbiturates, ur Not Detected CutOff 200ng/mL [facility] Comment: Interpretive Data - Barbiturates: ??Samples containing greater than 200 ng/mL secobarbital or other cross-reacting barbiturate compounds are reported as positive. ??False positive and false negative results are possible. Current Interpretive Data was last reviewed 2018. Benzodiazepines, ur Not Detected CutOff 100ng/mL [facility] Comment: Interpretive Data - Benzodiazepines: ??Samples containing greater than 100 ng/mL nordiazepam or other cross-reacting compounds are reported as positive. ?? False positive and false negative results are possible. ?? Current Interpretive Data was last reviewed 2018. Cannabinoids, ur Detected(A) CutOff 50 ng/mL [facility] Cocaine, ur Not Detected CutOff 150ng/mL [facility] Comment: Interpretive Data - Cocaine: ??Samples containing greater than 150 ng/mL benzoylecgonine or other cross-reacting compounds are reported as positive. False positive and false negative results are possible. Current Interpretive Data was last reviewed 2018. Fentanyl, Ur Not Detected Cutoff 1 ng/mL [facility] Comment: Interpretive Data - Fentanyls: ??Samples containing greater than 1 ng/mL fentanyl or other cross-reacting fentanyl compounds are reported as detected. ??False positive and false negative results are possible. Current Interpretive Data was last reviewed 2019. Methadone, ur Not Detected CutOff 300ng/mL [facility] Comment: Interpretive Data - Methadone: ??Samples containing greater than 300 ng/mL d,l-methadone or other cross-reacting compounds are reported as positive. ??False positive and false negative results are possible. Current Interpretive Data was last reviewed 2018. Opiates, ur Not Detected CutOff 300ng/mL [facility] Comment: Interpretive Data - Opiates: ??Samples containing greater than 300 ng/mL morphine or other cross-reacting compounds are reported as positive. ??False positive and false negative results are possible. Current Interpretive Data was last reviewed 2018. Oxycodone, ur Not Detected CutOff 100ng/mL [facility] Comment: Interpretive Data - Oxycodone: ??Samples containing greater than 100 ng/mL oxycodone or other cross-reacting compounds are reported as positive. ??False positive and false negative results are possible. ?? Current Interpretive Data was last reviewed 2018. Phencyclidine, ur Not Detected CutOff 25 ng/mL [facility] Comment: Interpretive Data - Phencyclidine: ??Samples containing greater than 25 ng/mL phencyclidine or other cross-reacting compounds are reported as positive. ??False positive and false negative results are possible. ?? Current Interpretive Data was last reviewed 2018. Urine Creatinine 65 mg/dL [facility] Comment: Interpretive Data Urine Creatinine: < 10 mg/dL is extremely dilute = or > 10 but < 20 mg/dL is dilute = or > 20 mg/dL is normal Current Interpretive Data was last revised on 2017. Urine 07/03/2022 10:3 0 AM PROGRAM ANALYST 07/03/2022 10:41 AM PROGRAM ANALYST Narrative [facility] - 07/04/2022 12:12 PM PROGRAM ANALYST Drug of Abuse screening is performed by immunoassay for medical purposes only. ??This is not to be used for Pain Management purposes. ??If Detected, confirmation testing will be performed for Amphetamines, Cocaine, Fentanyl, Methadone, Opiates, Oxycodone or Phencyclidine. Shanique Bazan MD LAB URINE ORDERABLES Anjana l Result Performing Organization Address [facility] de Phone Number [facility] Department [place] [address] * hCG, urine, qualitative (07/03/2022 10:30 AM PROGRAM ANALYST) HCG, ur Negative Negative [facility] Urine 07/03/2022 10:3 0 AM PROGRAM ANALYST 07/03/2022 10:41 AM PROGRAM ANALYST Jorge Degroot MD LAB URINE ORDERABLES Anjana l Result Performing Organization Address [facility] de Phone Number [facility] Department [place] [address] * POCT creatinine (07/03/2022 10:23 AM PROGRAM ANALYST) Creatinine POC 0.7 0.4 - 1.0 mg/dL [facility] Blood 07/03/2022 10:2 3 AM PROGRAM ANALYST 07/03/2022 10:23 AM PROGRAM ANALYST us Yayo Patterson MD LAB POCT ORDERABLES - ISIDRO CE Final Result [facility] [place] [address] * Urinalysis reflex to microscopic and culture Urine (07/03/2022 10:16 AM PROGRAM ANALYST) Color, ur Straw Yellow [facility] Clarity, ur Clear Clear [facility] Specific gravity, ur 1.014 1.003 - 1.030 [facility] pH, urine 7.5 [facility] Protein, ur ql Negative Negative [facility] Glucose, ur ql Negative Negative [facility] Ketones, ur Negative Negative [facility] Bilirubin, ur Negative Negative [facility] Blood, ur Negative Negative [facility] Urobilinogen, ur <2.0 <2.0 mg/dL [facility] Nitrite, ur Negative Negative [facility] Leukocyte esterase, ur Negative Negative [facility] UA reflex comment Reflex conditions for microscopic UA and culture not met. [facility] Urine 07/03/2022 10:1 6 AM PROGRAM ANALYST 07/03/2022 10:22 AM PROGRAM ANALYST Narrative [facility] - 07/03/2022 10:26 AM PROGRAM ANALYST ?? Urine pH is affected by diet, medications, systemic acid-base disturbances, and renal tubular function. ??pH may affect urinary stone formation. ??For example, urine pH below 6.0 may help reduce the tendency for calcium phosphate stones and pH greater than 6.0 may reduce the tendency for uric acid stone formation. Source: [facility]. Last revised 06-30-2017 us Jorge Degroot MD LAB MICROBIOLOGY - GENERA L ORDERABLES Final Result [facility] Department [place] [address] * Vitamin B1 (07/03/2022 10:15 AM PROGRAM ANALYST) Thiamine (Vit B1) 92 70 - 180 nmol/L [facility] Comment: ADDITIONAL INFORMATION This test was developed and its performance characteristics determined by [facility] in a manner consistent with CLIA requirements. This test has not been cleared or approved by the U.S. Food and Drug Administration. Test Performed by: [place] [address] Rotor Balancer: Juan Villagran M.D. Ph.D.; CLIA# [id number] Blood 07/03/2022 10:1 5 AM PROGRAM ANALYST 07/03/2022 10:34 PM PROGRAM ANALYST us Ady Emanuel MD LAB BLOOD ORDERABLES Final R esult Performing Organization Address [facility] Co de Phone Number [facility] Department [place] [address] * (ABNORMAL) Vitamin D 25 hydroxy (07/03/2022 10:15 AM PROGRAM ANALYST) Vitamin D 25-OH 17(L) 30 - 80 ng/mL [facility] Blood 07/03/2022 10:1 5 AM PROGRAM ANALYST 07/03/2022 10:18 AM PROGRAM ANALYST Narrative [facility] - 07/03/2022 9:54 PM PROGRAM ANALYST AGES: -18 years - Sufficient: 20-100 ng/mL; Borderline: 10-20 ng/mL; Deficient: <10 ng/mL. ??Reference intervals pertain to males and females from through age 18. ??Intervals reflect consensus clinical decision limits derived from various reports including the 2011 [place] [employer] Report on calcium and vitamin D. ??Vitamin D concentrations may vary widely depending on ethnic background, geographic location, and the time of the year the sample was obtained. ??References: ??1. Blaise KUMARI, Graciela NICHOLS. Prevention of Rickets and Vitamin D Deficiency in Infants, Children, and Adolescents. Pediatrics 2008;122:1212-2548. ??2. Luciano AC, Pam CL, Pierre AL, Cardoza HB, eds. Dietary Reference Intakes for Calcium and Vitamin D. [place] [employer]; National Academies Press:2011 ??3. Lisa PHU, Pasha J, and Shobha DJ. Circulating Intact Parathyroid Hormone is Suppressed at 25-hydroxyvitamin D Concentrations greater than 25 nmol/L. J Pediatr Endocrinol Metab 2014;doi:10.1515/ljuu-4961-7831. Last revised on 07/22/2017. us Ady Emanuel MD LAB BLOOD ORDERABLES Final R esult Performing Organization Address City/[facility]/ZIP Co de Phone Number [facility] Department [place] [address] * IgA (07/03/2022 10:15 AM PROGRAM ANALYST) Immunoglobulin A 118.0 70.0 - 400.0 mg/dL [facility] Blood 07/03/2022 10:1 5 AM PROGRAM ANALYST 07/03/2022 10:18 AM PROGRAM ANALYST us Ady Emanuel MD LAB BLOOD ORDERABLES Final R esult Performing Organization Address [facility] Co de Phone Number [facility] Department [place] [address] * CRP (acute phase) (07/03/2022 10:15 AM PROGRAM ANALYST) CRP <0.5 <=10.0 mg/L [facility] Blood 07/03/2022 10:1 5 AM PROGRAM ANALYST 07/03/2022 10:18 AM PROGRAM ANALYST us Ady Emanuel MD LAB BLOOD ORDERABLES Final R esult [facility] [place] [address] * TSH reflex to free T4 (07/03/2022 10:15 AM PROGRAM ANALYST) TSH 0.90 0.30 - 4.20 mcIUnit/mL [facility] Blood 07/03/2022 10:1 5 AM PROGRAM ANALYST 07/03/2022 10:18 AM PROGRAM ANALYST us Ady Emanuel MD LAB BLOOD ORDERABLES Final R esult Performing Organization Address City/[facility] Co de Phone Number [facility] [place] [address] * (ABNORMAL) Ferritin (07/03/2022 10:15 AM PROGRAM ANALYST) Ferritin 170(H) 13 - 150 ng/mL [facility] Blood 07/03/2022 10:1 5 AM PROGRAM ANALYST 07/03/2022 10:18 AM PROGRAM ANALYST us Ady Emanuel MD LAB BLOOD ORDERABLES Final R esult Performing Organization Address City/[facility]/ZIP Co de Phone Number [facility] Department [place] [address] * Iron profile w/ IBC (07/03/2022 10:15 AM PROGRAM ANALYST) Iron 76 35 - 145 mcg/dL [facility] TIBC 254 250 - 400 mcg/dL [facility] Transferrin saturation 30 20 - 50 % [facility] Blood 07/03/2022 10:1 5 AM PROGRAM ANALYST 07/03/2022 10:18 AM PROGRAM ANALYST us Ady Emanuel MD LAB BLOOD ORDERABLES Final R esult Performing Organization Address City/[facility] Co de Phone Number [facility] Department [place] [address] * (ABNORMAL) Vitamin B12 (07/03/2022 10:15 AM PROGRAM ANALYST) [facility] Vitamin B12 1,748(H) 230 - 1,250 pg/mL [facility] Blood 07/03/2022 10:1 5 AM PROGRAM ANALYST 07/03/2022 10:18 AM PROGRAM ANALYST us Ady Emanuel MD LAB BLOOD ORDERABLES Final R [facility] Performing Organization Address [facility] Co de Phone Number [facility] Department [place] [address] * eGFR (07/03/2022 10:15 AM PROGRAM ANALYST) [facility] eGFR >90 90 - 130 mL/min/1. 73 m2 [facility] Comment: Interpretive Data Reference Interval Normal ?>/= [...] reviewed 2021. Blood 07/03/2022 10:1 5 AM PROGRAM ANALYST 07/03/2022 10:18 AM PROGRAM ANALYST us Jorge Degroot MD LAB BLOOD ORDERABLES Anjana nathaly Result [facility] One [facility] Department [place] [address] * Differential, auto (07/03/2022 10:15 AM PROGRAM ANALYST) Pathologist [facility] Neutrophil abs 1.9 1.7 - 6.5 K/cumm [facility] Imm gran abs 0.0 0.0 - 0.1 K/cumm [facility] Lymphocyte abs 1.2 0.8 - 3.3 K/cumm [facility] Monocyte abs 0.3 0.2 - 0.8 K/cumm [facility] Eosinophil abs 0.1 0.0 - 0.5 K/cumm [facility] Basophil abs 0.0 0.0 - 0.1 K/cumm [facility] Neutrophil pct 55.8 % [facility] Comment: Interpretive Data Percent cell count reference ranges are not reported, since discordance with absolute values may lead to misinterpretation of CBC data. Current Interpretive Data was last revised on 2017. Imm gran pct 0.3 % [facility] Comment: Interpretive Data Percent cell count reference ranges are not reported, since discordance with absolute values may lead to misinterpretation of CBC data. Current Interpretive Data was last revised on 2017. Lymphocyte pct 34.4 % [facility] Comment: Interpretive Data Percent cell count reference ranges are not reported, since discordance with absolute values may lead to misinterpretation of CBC data. Current Interpretive Data was last revised on 2017. Monocyte pct 7.4 % [facility] Comment: Interpretive Data Percent cell count reference ranges are not reported, since discordance with absolute values may lead to misinterpretation of CBC data. Current Interpretive Data was last revised on 2017. Eosinophil pct 1.5 % [facility] Comment: Interpretive Data Percent cell count reference ranges are not reported, since discordance with absolute values may lead to misinterpretation of CBC data. Current Interpretive Data was last revised on 2017. Basophil pct 0.6 % [facility] Comment: Interpretive Data Percent cell count reference ranges are not reported, since discordance with absolute values may lead to misinterpretation of CBC data. Current Interpretive Data was last revised on 2017. Blood 07/03/2022 10:1 5 AM PROGRAM ANALYST 07/03/2022 10:17 AM PROGRAM ANALYST Jorge Degroot MD LAB BLOOD ORDERABLES Anjana l Result Performing Organization Address [facility] Co de Phone Number [facility] [place] [address] * Troponin I high-sensitivity series (baseline, 2hr, 4hr, 6hr) (07/03/2022 10:15 AM PROGRAM ANALYST) Trop I hs <4 <=17 ng/L [facility] Comment: Interpretive Data For further hscTnI resources including the diagnostic algorithm and an aid in interpretation, copy and paste this link: [email or web address].testcatalog.org/show/[email or web address] Current Interpretive Data last revised 2019. Blood 07/03/2022 10:1 5 AM PROGRAM ANALYST 07/03/2022 10:17 AM PROGRAM ANALYST Jorge Degroot MD LAB BLOOD ORDERABLES Anjana l Result Performing Organization Address City/[facility]/ZIP Co de Phone Number [facility] [place] [address] * Phosphorus (07/03/2022 10:15 AM PROGRAM ANALYST) Phosphorus, pl 3.1 2.3 - 4.5 mg/dL [facility] Blood 07/03/2022 10:1 5 AM PROGRAM ANALYST 07/03/2022 10:18 AM PROGRAM ANALYST Jorge Degroot MD LAB BLOOD ORDERABLES Anjana l Result [facility] [place] [address] * Magnesium (07/03/2022 10:15 AM PROGRAM ANALYST) [facility] Magnesium 1.9 1.4 - 2.5 mg/dL [facility] Blood 07/03/2022 10:1 5 AM PROGRAM ANALYST 07/03/2022 10:18 AM PROGRAM ANALYST Jorge Degroot MD LAB BLOOD ORDERABLES Anjana l Result Performing Organization Address [facility] Co de Phone Number [facility] [place] [address] * Respiratory pathogen panel Nasopharyngeal (07/03/2022 10:15 AM PROGRAM ANALYST) [facility] Influenza A RNA Not Detected Not Detected [facility] Influenza B RNA Not Detected Not Detected [facility] RSV RNA Not Detected Not Detected [facility] COVID-19 RNA Not Detected Not Detected [facility] Coronavirus 229E RNA Not Detected Not Detected [facility] Coronavirus HKU1 RNA Not Detected Not Detected [facility] Coronavirus NL63 RNA Not Detected Not Detected [facility] Coronavirus OC43 RNA Not Detected Not Detected [facility] Adenovirus DNA Not Detected Not Detected [facility] Metapneumovirus RNA Not Detected Not Detected [facility] Rhinovirus/Enterov irus RNA Not Detected Not Detected [facility] Parainfluenza 1 RNA Not Detected Not Detected [facility] Parainfluenza 2 RNA Not Detected Not Detected [facility] Parainfluenza 3 RNA Not Detected Not Detected [facility] Parainfluenza 4 RNA Not Detected Not Detected [facility] B. pertussis DNA Not Detected Not Detected [facility] B. parapertussis DNA Not Detected Not Detected [facility] C. pneumoniae DNA Not Detected Not Detected [facility] M. pneumoniae DNA Not Detected Not Detected [facility] Nasopharyngeal 07/03/2022 10 :15 AM PROGRAM ANALYST 07/03/2022 10:15 AM PROGRAM ANALYST Narrative [facility] - 07/03/2022 11:06 AM PROGRAM ANALYST Is the Patient experiencing symptoms consistent with COVID?->Yes Date of Symptom Onset->06/16/22 Reason for testing?->Bed placement or semi-private room Surveillance testing for transplant patient?->No ??Interpretive Data The [employer] FilmArray Respiratory Panel (RP2.1) assay is a [...] assay has FDA clearance for testing of RN TRIAGE swabs. ??The performance of additional specimen types has been assessed by the performing laboratory. ??The performance characteristics of this assay have been determined by [facility] [facility]. Current interpretive data was last revised on 22. Jorge Degroot MD LAB MICROBIOLOGY - GENERA L ORDERABLES Final Result Performing Organization Address City/[facility]/ZIP Co de Phone Number [facility] Department [place] [address] * Lipase (07/03/2022 10:15 AM PROGRAM ANALYST) [facility] Lipase 55 10 - 99 Units/L [facility] Blood 07/03/2022 10:1 5 AM PROGRAM ANALYST 07/03/2022 10:18 AM PROGRAM ANALYST Jorge Degroot MD LAB BLOOD ORDERABLES Anjana l Result Performing Organization Address [facility] de Phone Number [facility] Department [place] [address] * (ABNORMAL) Comprehensive metabolic panel (07/03/2022 10:15 AM PROGRAM ANALYST) [facility] Sodium 141 135 - 145 mmol/L [facility] Potassium, pl 4.0 3.3 - 4.9 mmol/L [facility] Chloride 103 97 - 110 mmol/L [facility] CO2 27 22 - 32 mmol/L [facility] Anion gap 11 2 - 15 mmol/L [facility] BUN 3(L) 8 - 25 mg/dL [facility] Creatinine 0.74 0.40 - 1.00 mg/dL [facility] Glucose 106 70 - 199 mg/dL [facility] Comment: Interpretive Data Fasting glucose >/= 126 [...] 2017. Calcium 9.5 8.5 - 10.3 mg/dL [facility] Bilirubin, total 0.8 0.1 - 1.2 mg/dL [facility] Protein, pl 7.3 6.5 - 8.5 g/dL [facility] Albumin 4.5 3.5 - 5.0 g/dL [facility] Alk phos 48(L) 70 - 260 Units/L [facility] ALT 14 7 - 45 Units/L [facility] AST 23 10 - 45 Units/L [facility] Blood 07/03/2022 10:1 5 AM PROGRAM ANALYST 07/03/2022 10:18 AM PROGRAM ANALYST us Jorge Degroot MD LAB BLOOD ORDERABLES Anjana l Result [facility] [place] [address] * (ABNORMAL) CBC with auto differential (07/03/2022 10:15 AM PROGRAM ANALYST) Pathologist [facility] WBC 3.4(L) 3.8 - 9.9 K/cumm [facility] Hgb 12.4 11.9 - 15.5 g/dL [facility] Hct 37.3 35.6 - 45.5 % [facility] Plt 217 150 - 400 K/cumm [facility] MPV 10.6 9.1 - 12.3 fL [facility] RBC 4.53 3.90 - 5.20 M/cumm [facility] MCV 82.3 81.3 - 96.4 fL [facility] MCH 27.4 27.1 - 33.3 pg [facility] MCHC 33.2 32.3 - 35.7 g/dL [facility] RDW CV 13.3 11.1 - 14.9 % [facility] RDW SD 40.1 35.7 - 48.1 fL [facility] NRBC abs 0.00 0.00 - 0.01 K/cumm [facility] Blood 07/03/2022 10:1 5 AM PROGRAM ANALYST 07/03/2022 10:17 AM PROGRAM ANALYST Jorge Degroot MD LAB BLOOD ORDERABLES Anjana l Result Performing Organization Address [facility] Co de Phone Number [facility] Department [place] [address] * Calcium, ionized (07/03/2022 9:42 AM PROGRAM ANALYST) [facility] Calcium, Ionized 4.74 4.50 - 5.10 mg/dL [facility] Blood 07/03/2022 9:42 AM PROGRAM ANALYST 07/03/2022 10:08 AM PROGRAM ANALYST Jorge Degroot MD LAB BLOOD ORDERABLES Anjana l Result Performing Organization Address [facility] de Phone Number [facility] Department [place] [address] * ECG 12-LEAD (07/03/2022 8:25 AM PROGRAM ANALYST) Narrative [facility] - 07/03/2022 8:25 AM PROGRAM ANALYST Ish Espinal MD ? 07/03/2022 ??8:25 AM [...] Patterson MD ECG ORDERABLES Final Resu lt [facility] documented in this encounter Visit Diagnoses Diagnosis [...] Indications: Fever, PainIndications:Fever,Pain Given 07/12/2022 9:06 PM PROGRAM ANALYST 1,000 mg Given 07/11/2022 3:22 AM PROGRAM ANALYST 1,000 mg Given 07/06/2022 11:32 AM PROGRAM ANALYST 1,000 mg baclofen (LIORESAL) tablet 5 mg 5 mg (0.119 mg/kg), oral, 3 times daily PRN, muscle spasms, Starting on 07/03/22 at 2127 Given 07/04/2022 9: 50 AM PROGRAM ANALYST 5 mg Given 07/03/2022 10:40 PM PROGRAM ANALYST 5 mg calcium carbonate (TUMS) chewable tablet 1,000 mg 1,000 mg (24.9 mg/kg = 400 mg of elemental calcium), oral, Every 6 hours PRN, indigestion, heartburn, Starting on Tue07/05/22 at 0052 Given 07/06/2022 11:33 AM PROGRAM ANALYST 1,000 mg Given 07/05/2022 1:34 AM PROGRAM ANALYST 1,000 mg dextrose 5% and Lactated Ringer's infusion 75 mL/hr, intravenous, Continuous, Starting on 07/03/22 at 2145, For 1 day New Bag 07/04/2022 4:13 PM PROGRAM ANALYST 75 mL/hr 75 mL/hr New Bag 07/04/2022 2:17 AM PROGRAM ANALYST 75 mL/hr 75 mL/hr dextrose 5% and Lactated Ringer's infusion 75 mL/hr, intravenous, Continuous, Starting on Tue07/05/22 at 0500, For 1 day New Bag 07/05/2022 10:21 AM PROGRAM ANALYST 75 mL/hr 75 mL/hr New Bag 07/05/2022 4:46 AM PROGRAM ANALYST 75 mL/hr 75 mL/hr diphenhydrAMINE (BENADRYL) injection 50 mg 50 mg (1.25 mg/kg), intravenous, Administer over 2 Minutes, Every 6 hours PRN, other, spasm, Starting on 07/04/22 at 1322 Given 07/05/2022 4:28 AM PROGRAM ANALYST 50 mg Given 07/04/2022 10:16 PM PROGRAM ANALYST 50 mg Given 07/04/2022 4:15 PM PROGRAM ANALYST 50 mg diphenhydrAMINE (BENADRYL) injection 50 mg 50 mg (1.25 mg/kg), intravenous, Administer over 2 Minutes, Every 6 hours PRN, other, spasm, Starting on Tue07/06/22 at 1948, Indications: spasms or itchingIndications:spa sms or itching Given 07/06/2022 8:12 PM PROGRAM ANALYST 50 mg droperidoL (INAPSINE) injection 0.625 mg 0.625 mg (0.0157 mg/kg), intravenous, Administer over 5 Minutes, Once, On 07/03/22 at 1636, For 1 dose Given 07/03/2022 4:42 PM PROGRAM ANALYST 0.625 mg enoxaparin (LOVENOX) syringe 30 mg 30 mg (0.713 mg/kg), subcutaneous, Daily (for enoxaparin), First dose on 07/03/22 at 2145, Indications: Deep Vein Thrombosis PreventionIndications: Deep Vein Thrombosis Prevention Given 07/03/2022 9:50 PM PROGRAM ANALYST 30 mg Left Lower Abdomen ergocalciferol (VITAMIN D) capsule 50,000 Units 50,000 Units, oral, Weekly, First dose on 07/04/22 at 0900, For 8 doses, Do not crush, break, or open. Given 07/04/2022 9:50 AM PROGRAM ANALYST 50,000 Units famotidine (PEPCID) 10 mg in sodium chloride 0.9% 50 mL IVPB 10 mg (0.249 mg/kg), intravenous, at 153 mL/hr, Administer over 20 Minutes, Every 12 hours scheduled, First dose on Tue07/05/22 at 2100 New Bag 07/11/2022 10:32 PM PROGRAM ANALYST 10 mg 153 mL/hr New Bag 07/11/2022 9:01 AM PROGRAM ANALYST 10 mg 153 mL/hr New Bag 07/10/2022 8:59 PM PROGRAM ANALYST 10 mg 153 mL/hr famotidine (PEPCID) injection 10 mg 10 mg (0.249 mg/kg), intravenous, Administer over 2 Minutes, Every 12 hours, First dose on 07/11/22 at 2330, IV Push over at least 2 minutes Given 07/13/2022 11:16 AM PROGRAM ANALYST 10 mg Given 07/12/2022 11:48 PM PROGRAM ANALYST 10 mg Given 07/12/2022 2:52 PM PROGRAM ANALYST 10 mg folic acid (FOLVITE) tablet 1 mg 1 mg (0.0238 mg/kg), oral, Daily, First dose on 07/03/22 at 2145 Given 07/13/2022 9:34 AM PROGRAM ANALYST 1 mg Given 07/12/2022 8:21 AM PROGRAM ANALYST 1 mg Given 07/10/2022 10:35 AM PROGRAM ANALYST 1 mg gadoterate meglumine injection 20 mL 20 mL (0.499 mL/kg), intravenous, Once in imaging, contrast, Starting on 07/05/22 at 1256, For 1 dose Contrast Given 07/05/2022 1:08 PM PROGRAM ANALYST 8 mL HYDROmorphone (DILAUDID) injection 0.2 mg 0.2 mg (0.77497 mg/kg), intravenous, Administer over 2 Minutes, Once, On 07/06/22 at 1230, For 1 dose Given 07/06/2022 11:58 AM PROGRAM ANALYST 0.2 mg HYDROmorphone (DILAUDID) injection 0.2 mg 0.2 mg (0.38386 mg/kg), intramuscular, Administer over 2 Minutes, Once, On 07/10/22 at 1530, For 1 dose Given 07/10/2022 3:03 PM PROGRAM ANALYST 0.2 mg Left Deltoid ioversoL (OPTIRAY 350) syringe 125 mL 125 mL (3.13 mL/kg), intravenous, Once in imaging, contrast, Starting on 07/03/22 at 1126, For 1 dose Contrast Given 07/03/2022 11:30 AM PROGRAM ANALYST 90 mL ketorolac (TORADOL) 15 mg/mL injection 15 mg 15 mg (0.373 mg/kg), intravenous, Once, On 07/10/22 at 1630, For 1 dose, For Adult IV push, administer over 15 seconds Given 07/10/2022 6:40 PM PROGRAM ANALYST 15 mg Lactated Ringer's (LR) bolus 1,000 mL 1,000 mL (25.1 mL/kg), intravenous, Once, On 07/03/22 at 0928, For 1 dose New Bag 07/03/2022 10:12 AM PROGRAM ANALYST 1,000 mL Lactated Ringer's (LR) bolus 1,000 mL 1,000 mL (23.8 mL/kg), intravenous, at 250 mL/hr, Administer over 4 Hours, Once, On 07/03/22 at 2215, For 1 dose New Bag 07/03/2022 9:50 PM PROGRAM ANALYST 1,000 mL 250 mL/hr lidocaine (GLYDO) 2 % jelly 100 mg 100 mg (2.49 mg/kg = 5 mL), topical, 2 times daily PRN, other, for NG tube discomfort, Starting on Tue07/12/22 at 1517 Given 07/12/2022 5:49 PM PROGRAM ANALYST 100 mg lidocaine (LIDODERM) 5 % patch 1 patch 1 patch, transdermal, Administer over 12 Hours, Daily, First dose on Tue07/04/22 at 0900, Do not cover the holes on the top side of the patch., Apply to affected area: chest Medication Applied 07/13/2022 9:33 AM PROGRAM ANALYST 1 patch Chest Medication Applied 07/12/2022 8:22 AM PROGRAM ANALYST 1 patch Chest Medication Applied 07/11/2022 9:06 AM PROGRAM ANALYST 1 patch Other (Comment) LORazepam (ATIVAN) injection 0.25 mg 0.25 mg (0.28869 mg/kg), intravenous, Every 6 hours PRN, other, nausea/vomiting second line, Starting on Tue07/05/22 at 0955, For IV administration, dilute with equal volume of 0.9% sodium chloride to a final concentration of 1 mg/mL. Do not exceed a rate of 2 mg/minute Given 07/09/2022 11:50 AM PROGRAM ANALYST 0.25 mg Given 07/08/2022 12:25 PM PROGRAM ANALYST 0.25 mg Given 07/07/2022 3:47 PM PROGRAM ANALYST 0.25 mg LORazepam (ATIVAN) injection 0.5 mg 0.5 mg (0.0125 mg/kg), intravenous, Every 6 hours PRN, other, nausea/vomiting second line, Starting on Tue07/09/22 at 1521, For IV administration, dilute with equal volume of 0.9% sodium chloride to a final concentration of 1 mg/mL. Do not exceed a rate of 2 mg/minute Given 07/11/2022 9:49 AM PROGRAM ANALYST 0.5 mg Given 07/10/2022 4:24 PM PROGRAM ANALYST 0.5 mg Given 07/09/2022 7:09 PM PROGRAM ANALYST 0.5 mg morphine injection 1 mg 1 mg (0.0249 mg/kg), intravenous, Administer over 4 Minutes, Once, On [place] 07/08/22 at 0830, For 1 dose Given 07/08/2022 8:05 AM PROGRAM ANALYST 1 mg morphine injection 1 mg 1 mg (0.0249 mg/kg), intravenous, Administer over 4 Minutes, Once, On Tue07/09/22 at 1200, For 1 dose Given 07/09/2022 11:34 AM PROGRAM ANALYST 1 mg morphine injection 2 mg 2 mg (0.0499 mg/kg), intravenous, Administer over 4 Minutes, Every 4 hours PRN, 3rd line for pain, Starting on Tue07/09/22 at 1521 Given 07/11/2022 3:32 PM PROGRAM ANALYST 2 mg Given 07/11/2022 8:55 AM PROGRAM ANALYST 2 mg Given 07/09/2022 10:58 PM PROGRAM ANALYST 2 mg multivitamin with folic acid 400 mcg tablet 1 tablet 1 tablet, oral, Daily, First dose on Tue07/04/22 at 0900 Given 07/13/2022 9:34 AM PROGRAM ANALYST 1 tablet Given 07/12/2022 8:22 AM PROGRAM ANALYST 1 tablet Given 07/10/2022 10:35 AM PROGRAM ANALYST 1 tablet ondansetron (ZOFRAN) injection 4 mg 4 mg (0.1 mg/kg), intravenous, Administer over 2 Minutes, Once, On 07/03/22 at 0928, For 1 dose Given 07/03/2022 10:11 AM PROGRAM ANALYST 4 mg ondansetron (ZOFRAN) injection 4 mg 4 mg (0.0998 mg/kg), intravenous, Administer over 2 Minutes, Every 8 hours PRN, nausea, vomiting, Starting on Tue07/04/22 at 1501 Given 07/04/2022 10:15 PM PROGRAM ANALYST 4 mg ondansetron (ZOFRAN) injection 4 mg 4 mg (0.0998 mg/kg), intravenous, Administer over 2 Minutes, Once, On Tue07/05/22 at 0130, For 1 dose Given 07/05/2022 4:28 AM PROGRAM ANALYST 4 mg ondansetron (ZOFRAN) injection 4 mg 4 mg (0.0998 mg/kg), intravenous, Administer over 2 Minutes, Every 8 hours PRN, nausea, vomiting, 1st line, Starting on Tue07/05/22 at 0957 Given 07/08/2022 6:50 AM PROGRAM ANALYST 4 mg Given 07/07/2022 8:46 PM PROGRAM ANALYST 4 mg Given 07/06/2022 8:34 PM PROGRAM ANALYST 4 mg ondansetron (ZOFRAN) injection 4 mg 4 mg (0.0998 mg/kg), intravenous, Administer over 2 Minutes, Once, On 07/06/22 at 2245, For 1 dose Given 07/06/2022 10:17 PM PROGRAM ANALYST 4 mg ondansetron (ZOFRAN) injection 4 mg 4 mg (0.0998 mg/kg), intravenous, Administer over 2 Minutes, Every 8 hours, First dose (after last modification) on [place] 07/08/22 at 1530 Given 07/13/2022 9:33 AM PROGRAM ANALYST 4 mg Given 07/12/2022 11:49 PM PROGRAM ANALYST 4 mg Given 07/12/2022 2:52 PM PROGRAM ANALYST 4 mg pantoprazole (PROTONIX) 4 mg/mL injection 40 mg 40 mg (0.95 mg/kg), intravenous, Administer over 2 Minutes, Daily, First dose on 07/03/22 at 2230, For IV Push administration for adults- 40 mg vial: add 10 mL of sodium chloride 0.9% to achieve a final concentration of 4 mg/mL, Indications: Treatment of Non-Bleeding Gastric DisorderIndications:Treatment of Non-Bleeding Gastric Disorder Given 07/13/2022 9:33 AM PROGRAM ANALYST 40 mg Given 07/12/2022 8:21 AM PROGRAM ANALYST 40 mg Given 07/11/2022 8:59 AM PROGRAM ANALYST 40 mg phenoL (CHLORASEPTIC) 1.4 % oral spray 1 spray 1 spray, mouth/throat, Every 4 hours PRN, sore throat, Starting on 07/12/22 at 2249 Given 07/13/2022 7:29 AM PROGRAM ANALYST 1 spray Given 07/13/2022 3:21 AM PROGRAM ANALYST 1 spray polyethylene glycol (MIRALAX) packet 17 g 17 g, oral, Daily, First dose on 07/11/22 at 1415, Indications: constipationIndications:constipation Given 07/13/2022 9:33 AM PROGRAM ANALYST 17 g Given 07/12/2022 8:21 AM PROGRAM ANALYST 17 g Given 07/11/2022 3:32 PM PROGRAM ANALYST 17 g ramelteon (ROZEREM) tablet 8 mg 8 mg (0.19 mg/kg), oral, Nightly PRN, sleep, Starting on 07/03/22 at 2102, Indications: Sleep-Onset InsomniaIndications:Slee p-Onset Insomnia Given 07/03/2022 9:55 PM PROGRAM ANALYST 8 mg scopolamine patch 72 hour 1 patch 1 patch, transdermal, Administer over 72 Hours, Every 72 hours, First dose on Tue07/05/22 at 1030 Medication Applied 07/08/2022 10:19 AM PROGRAM ANALYST 1 patch Behind Left Ear Medication Applied 07/05/2022 1:44 PM PROGRAM ANALYST 1 patch Behind Left Ear senna 1.76 mg/mL syrup 8.8 mg 8.8 mg (0.219 mg/kg), oral, 2 times daily PRN, constipation, Starting on Tue07/11/22 at 1333 Given 07/11/2022 4:06 PM PROGRAM ANALYST 8.8 mg sodium chloride 0.9% flush 0.5-20 mL 0.5-20 mL (0.0125-0.4988 mL/kg), intra-catheter, Every 8 hours scheduled, First dose on Tue07/06/22 at 1630, Pre-Op/Floor (GI), Flush volume based on line type and size. Given 07/07/2022 6:49 AM PROGRAM ANALYST 10 mL Given 07/06/2022 8:39 PM PROGRAM ANALYST 10 mL Given 07/06/2022 3:52 PM PROGRAM ANALYST 10 mL sodium chloride 0.9% infusion 30 mL/hr, intravenous, Continuous, Starting on Tue07/07/22 at 1100, For 6 hours, Pre-Procedure (GI) Rate/Dose Verify 07/07/2022 11:22 AM PROGRAM ANALYST 30 mL/h r New Bag 07/07/2022 10:33 AM PROGRAM ANALYST 30 mL/hr 30 mL/hr traMADoL (ULTRAM) tablet 50 mg 50 mg (1.25 mg/kg), oral, 4 times daily PRN, 2nd line for pain, Starting on Tue07/07/22 at 1536 Given 07/08/2022 4:55 PM PROGRAM ANALYST 50 mg documented in this encounter Discontinued [...] Recently Administered Medications Times are shown in PROGRAM ANALYST. Scheduled Medication Order 07/11/2022 07/12/2022 07/13/2022 enoxaparin [...] RN - Reason: Other - Comment: see [id number] (Given - Provider: Bridgette Santiago RN) 1116 [...] COVID: Suspected 07/03/2022 07/03/2022 07/03/2022 11:07 AM PROGRAM ANALYST documented as of this encounter Care Teams Tip Out Worker Relationship Specialty Start Date End Date No Physician PCP - General 07/03/22 07/03/22 Rita Lynn MD [address] [place] [id number] PCP - General Pediatrics 07/04/22 Moraima Physician 07/03/22 documented as of this encounter
--- OUTSIDE RECORDS SUMMARY | 2024-07-02 08:08 | XMS_ITS | Encounter Summary ---
Author Organization [facility] Healthcare Address [address] [place] [address] Care Team Providers Care Scrum Master Name Role Phone Rita Lynn MD Primary Care Provider [phone] No, Physician Unavailable Reason for Visit * Auth/Cert Specialty Diagnoses / Procedures Referred By Contac t Referred To Contact Diagnoses Chest pain, unspecified type Severely underweight adult Procedures N/A Referral ID Status Reason Start Date Expiration Date Visits Re quested Visits Authorized [id number] 1 1 Encounter Details Date Type Department Care Team (Late st Contact Info) Description 07/07/2022 11:22 AM SKI PRODUCTION SUPERVISOR Anesthesia Event [facility] [place] [address] [place] [address] Betsey Hernandez MD PhD [address] [place] [address] Nilo Mistry MD [address] [place] [address] Anesthesia Record Procedure Summary Procedure Name Responsible [...] on file Legal Sex Female 7:29 PM SKI PRODUCTION SUPERVISOR Gender Identity Not on file Sexual Orientation Not on file documented as of this encounter OR Notes * Anesthesia Postprocedure Evaluation - Mary Lou Wyatt MD - 07/07/2022 12:33 PM CST Patient: Lorraine Pacheco Procedure Summary Date: 07/07/22 Room / Location: [facility] ROOM 9 / [facility] Anesthesia Start: 1122 Anesthesia Stop: [...] Nausea/Vomiting status: none No notable events documented. PRODUCTION SUPERVISOR * Anesthesia Preprocedure Evaluation - Nilda Ellis [...] Medication protocol when under care of a STATISTICAL ANALYST Planned anesthesia: MAC Induction: Induction: intravenous. Postoperative Plan: Patient's planned disposition post procedure is Outpatient. Informed Consent: Discussed plan with STATISTICAL ANALYST. Anesthesia plan and risks discussed with patient. [...] Hernandez MD PhD at 07/07/2022 1:17 PM SKI PRODUCTION SUPERVISOR PRODUCTION SUPERVISOR PRODUCTION SUPERVISOR documented in this encounter Plan of [...] 1136, Anesthesia Intra-op Given 07/07/2022 11:36 AM SKI PRODUCTION SUPERVISOR 12.5 mcg lidocaine (cardiac) (XYLOCAINE) preservative free injection intravenous, As needed, Starting on Tue07/07/22 at 1129, Anesthesia Intra-op, Indications: Ventricular ArrhythmiasIndications:Ventricu lar Arrhythmias Given 07/07/2022 11:29 AM SKI PRODUCTION SUPERVISOR 40 mg propofoL (DIPRIVAN) 10 mg/mL IV intravenous, As needed, Starting on Tue07/07/22 at 1129, Anesthesia Intra-op Given 07/07/2022 11:30 AM SKI PRODUCTION SUPERVISOR 20 mg Given 07/07/2022 11:29 AM SKI PRODUCTION SUPERVISOR 50 mg propofoL (DIPRIVAN) 10 mg/mL IV intravenous, Continuous PRN, Starting on Tue07/07/22 at 1129, Anesthesia Intra-op New Bag 07/07/2022 11:29 AM SKI PRODUCTION SUPERVISOR 150 mcg/kg/min 36.09 mL/hr sodium chloride 0.9% infusion 30 mL/hr, intravenous, Continuous, Starting on Tue07/07/22 at 1100, For 6 hours, Pre-Procedure (GI) Rate/Dose Verify 07/07/2022 11:22 AM SKI PRODUCTION SUPERVISOR 30 mL/hr New Bag 07/07/2022 10:33 AM SKI PRODUCTION SUPERVISOR 30 mL/hr 30 mL/hr documented in this encounter Care Teams Scrum Master Relationship Specialty Start Date End Date Rita Lynn MD [address] [place] [address] PCP - General Pediatrics 07/04/22 No, Physician 07/03/22 documented as of this encounter
== END 2024-06-26 02:55 | disposition home or self-care (01) ==
PROVIDERS: Emergency Provider Emergency Medicine
DX: R11.2 Nausea with vomiting, unspecified (principal); Z20.822 Contact with and (suspected) exposure to COVID-19
CPT/HCPCS: 36415; 71045; 80053; 81001; 81025; 83605; 83690; 83735; 84484; 85025; 87637; 93005; 96361; 96374; 99284; J0780; J7030

== ENCOUNTER 2025-02-17 12:11 | Emergency (ER) | payer MEDICAID, OTHER, SELFPAY ==
--- NOTE | ~2025-02-17 | XR_ITS ---
EXAMINATION: XR wrist RT min 3V DATE: 02/17/2025 15:00 INDICATION: Pain at the medial right wrist extending to the fifth metacarpal TECHNIQUE: Posteroanterior, ulnar deviation, oblique, and lateral views of the right wrist were obtained. COMPARISON: none FINDINGS: Alignment is normal. No fracture. Joint spaces are normal. Soft tissues are unremarkable. IMPRESSION: 1. Negative right wrist radiographs. Reviewed, dictated and finalized at location A.
--- NOTE | ~2025-02-17 | XR_ITS ---
EXAMINATION: XR ribs LT 2V w CXR 2V DATE: 02/17/2025 14:59 INDICATION: Left lateral rib pain TECHNIQUE: A frontal inspiratory view of the chest and 3 views of the left ribs were obtained. COMPARISON: Chest radiograph dated 06/25/2024 FINDINGS: No rib fractures identified. No pneumothorax. No focal infiltrates, pleural effusion or pulmonary edema. Cardiomediastinal silhouette is normal. IMPRESSION: 1. No rib fracture or acute cardiopulmonary disease. Reviewed, dictated and finalized at location A.
[2025-02-17 12:15] VITALS: BP 113/71; PULSE 78; RESP 16; TEMP 36.4; O2SAT 99
[2025-02-17 12:17] VITALS: BP 95/59; PULSE 73; RESP 18; TEMP 36.6; O2SAT 100
[2025-02-17] MEDS: KETOROLAC 30 MG/ML VIAL (*BKC) IM (13:50)
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
== END 2025-02-17 15:41 | disposition home or self-care (01) ==
PROVIDERS: Emergency Provider Emergency Medicine
DX: S69.91XA Unspecified injury of right wrist, hand and finger(s), initial encounter (principal); R07.89 Other chest pain; V43.52XA Car driver injured in collision with other type car in traffic accident, initial encounter
CPT/HCPCS: 71046; 71100; 73110; 96372; 99284; J1885